=== PATIENT | male | born 1950 | race Caucasian/White ===

== ENCOUNTER → 2017-09-24 | Outpatient (CLI) | payer MEDICARE ==
--- NOTE | 2017-09-25 08:27 | CT ---
EXAMINATION TYPE: CT Chest Abd Pelvis w con DATE OF EXAM: 09/24/2017 COMPARISON: 06/13/2017 HISTORY: Follow-up small bowel cancer. Pelvic pain. CT DLP: 2673 mGy Automated exposure control for dose reduction was used. CONTRAST: CT scan of the chest, abdomen and pelvis is performed with Oral Contrast and with IV Contrast, patien t injected with 100 mL of Isovue M300. FINDINGS: LUNGS: There is subsegmental areas of consolidation bilaterally linear band of density left lower lob e. Findings are nonspecific. No pneumothorax or pleural effusion. Ill-defined vague nodularity right apex measuring 5 mm MEDIASTINUM: There are no greater than 1 cm hilar or mediastinal lymph nodes. No pericardial effusion is seen. Moderate to severe three-vessel coronary artery calcifications are present, a marker for co ronary artery disease. Moderate atheromatous changes are also seen of the thoracic aorta. Surgical cl ips from prior coronary artery bypass graft are noted. Median sternotomy wires are present. OTHER: Bilateral retroareolar mild breast tissue is most compatible with gynecomastia. LIVER/GB: Stable 8 mm hepatic dome lesion.. Numerous small gallstones versus biliary sludge are scatt ered within the gallbladder neck, body and fundus dependently. PANCREAS: No significant abnormality is seen. No ductal dilatation. SPLEEN: No significant abnormality is seen. No evidence of splenomegaly. ADRENALS: No significant abnormality is seen. Adrenal glands are symmetric and maintained adreniform shape. KIDNEYS: No evidence of hydronephrosis. The kidneys enhance symmetrically. BOWEL: No enlarged bowel. No evidence of obstruction. No focal bowel wall thickening is appreciated a lthough oral contrast is not present within the colon limiting evaluation. GENITAL ORGANS: No gross abnormality seen. LYMPH NODES: No greater than 1cm abdominal or pelvic lymph nodes are appreciated. Right lower quadran t adenopathy is discussed in the "other" section. OSSEOUS STRUCTURES: Postsurgical fusion is seen of L4-L5. Mild multilevel degenerative disc disease i s present on the visualized cervicothoracic and thoracolumbar as well as lumbosacral spine. Arthropat hy of the hips noted. Postsurgical change in the lower lumbar spine. OTHER: Soft tissue attenuated density with a spiculated morphology representing a desmoplastic reacti on measuring approximately 2.3 x 3.0 cm on the previous exam now measures 2.1 x 1.2 cm within the rig ht lower quadrant. No calcifications are seen. Additional smaller lymph nodes on image 85 are presen t locally. Retrospectively this was present on the prior exam of 2012 but was less conspicuous. This is now increase in size. IMPRESSION: 1. Spiculated right lower quadrant mesenteric mass is reduced in size now measuring 2.1 x 1.2 cm and previously measuring 2.3 x 3 cm. Tiny adjacent previously described shotty adenopathy is not seen wit h certainty and today's exam. 2. Subsegmental areas of consolidation within the lungs are nonspecific correlate for pneumonitis. Va damir area of nodularity involving the right upper lobe ill-defined and likely postinflammatory measuri ng 5 mm. 3. Hepatic lesion is stable back to 2012 and favored to represent hepatic cyst. 4. Cholelithiasis without CT evidence of acute cholecystitis.
== END | disposition home or self-care (01) ==
LOC: RADCTMAIN 14:18
PROVIDERS: ATTEND Internal Medicine Hematology & Oncology
DX: C7A.011 Malignant carcinoid tumor of the jejunum (principal); R19.07 Generalized intra-abdominal and pelvic swelling, mass and lump; R91.8 Other nonspecific abnormal finding of lung field; K76.9 Liver disease, unspecified; K80.20 Calculus of gallbladder without cholecystitis without obstruction; Z88.7 Allergy status to serum and vaccine
CPT/HCPCS: 82565; 84520; 71260; 74177; 36415; Q9967

== ENCOUNTER 2017-11-16 10:45 | Inpatient (IN) | payer MEDICARE, OTHER ==
[2017-11-12 15:16] VITALS: BMI 40.6
[~2017-11-16 10:45] MED LIST: ALPRAZolam 0.25 MG TAB PO PRN; ASPIRIN 325 MG TAB PO STA; ATORVASTATIN 80 MG TAB PO STA; NITROGLYCERIN SL TABS 0.4 MG TAB SUBLINGUAL PRN; SODIUM CHLORIDE 0.9% 1,000 ML in EMPTY BAG 1 BAG IV ONE
[2017-11-16] MEDS ORDERED: ASPIRIN 325 MG TAB PO ONE (11:39)
[2017-11-16 11:55] LABS: Glucose,Whole Blood 123 mg/dL (75-99)
[2017-11-16] MEDS ORDERED: fentaNYL (PF) 50 MCG/ML 2 ML AMP ONE (11:55)
[2017-11-16] MEDS ORDERED: MIDAZOLAM 2 MG/2 ML VIAL ONE (11:55)
[2017-11-16] MEDS ORDERED: MIDAZOLAM 2 MG/2 ML VIAL IVP ONE (12:02)
[2017-11-16] MEDS ORDERED: LIDOCAINE 2% INJ 20 MG/ML SQ ONE (12:08)
[2017-11-16] MEDS ORDERED: fentaNYL (PF) 50 MCG/ML 2 ML AMP IVP ONE (12:45)
[2017-11-16] MEDS ORDERED: IOPAMIDOL-370 125ML BTL INJ ONE (12:45)
[2017-11-16] MEDS ORDERED: RX INFO: IV CONTRAST WAS GIVEN 1 EACH MISC MISCELLANE PRN (13:03)
[2017-11-16] MEDS ORDERED: FUROSEMIDE 250 MG in SODIUM CHLORIDE 0.9% 225 ML IV ONE ×2 (13:07→15:00)
[2017-11-16] MEDS ORDERED: ALBUTEROL NEBULIZED 2.5 MG/3 ML INHALATION PRN (13:11)
[2017-11-16] MEDS ORDERED: ALBUTEROL INHALER 60 PUFF/8 GM INHALER INHALATION PRN (13:11)
[2017-11-16] MEDS ORDERED: RIVAROXABAN 20 MG TAB PO SCH ×2 (13:45→15:00)
[2017-11-16] MEDS ORDERED: SPIRONOLACTONE 25 MG TAB PO SCH (14:18)
--- NOTE | 2017-11-16 14:52 | CC ---
CARDIAC CATHETERIZATION REPORT NAME OF PROCEDURE: Right and left heart catheterization. Mr. Styles is a 67-year-old gentleman who is status post prior coronary artery bypass surgery. Patient was recently evaluated by Dr. Boss, has been having exertional shortness of breath with orthopnea and PND over the last 2-3 weeks which has progressively got worse. Patient also was having some chest discomfort. Patient has a history of persistent atrial fibrillation. He was maintaining a normal sinus rhythm with Tikosyn but now he has a breakthrough atrial fibrillation with Tikosyn. In view of that, the patient was recommended cardiac catheterization. To consider possible ablation in the future. PROCEDURE: The right groin was prepped and draped in the usual manner and the right femoral artery was entered using Seldinger technique. A #6-Jordanian sheath was placed in. Initially, the left heart catheterization was performed. Subsequently, right femoral vein was entered using Seldinger technique and a #8-Jordanian sheath was placed in and right heart catheterization was performed. Subsequently. the arterial sheath was removed and patient was admitted to the intensive care unit for intensive diuretic management. HEMODYNAMICS: Left ventricular end-diastolic pressure is 24-28 mmHg prior to angiography. The right heart, right-sided hemodynamics, right atrial pressure is 20 to 24 mmHg. Right ventricular systolic pressure is 60 and diastolic pressure is 24 mmHg. Pulmonary artery systolic pressure is 60 and end-diastolic pressure is about 30 mmHg. Pulmonary capillary wedge pressure is 20-30 mmHg. Cardiac output was 4 L and cardiac index is about to 1.2-1.3 L/m2 SELECTIVE CORONARY ANGIOGRAPHY: Left main coronary artery shows a distal stenosis of 70%. LAD is a good caliber blood vessel. There is a competitive flow noted in the distal LAD. Circumflex coronary artery is totally occluded after the origin of the small size obtuse marginal branch. Right coronary artery was totally occluded before. SANDERS graft to the LAD is patent with good filling of the distal LAD is noted. Saphenous vein graft to the good size obtuse marginal branch was patent with retrograde filling of the obtuse marginal branch noted. FINAL IMPRESSION: This study shows a patent SANDERS graft to the LAD and saphenous vein graft to the obtuse marginal branch. Patient has evidence of significant pulmonary hypertension and elevated pulmonary capillary wedge pressure and left ventricular end-diastolic pressure. We will admit the patient and monitor the PA pressures and start the patient on Lasix drip. A pulmonary consultation will be obtained and further adjustment in the medications will be made as necessary. MMODL / IJN: [id number] /
[2017-11-16] MEDS: SPIRONOLACTONE 25 MG TAB PO SCH ×2 (15:04→21:45)
[2017-11-16] MEDS: SODIUM CHLORIDE 0.9% 1,000 ML IV SCH (15:06)
[2017-11-16 15:07] LABS: Glucose,Whole Blood 139 mg/dL (75-99)
[2017-11-16 15:42] LABS: Anion Gap 9 mmol/L; Blood Urea Nitrogen 20 mg/dL (9-20); Calcium 8.6 mg/dL (8.4-10.2); Carbon Dioxide 36 mmol/L (22-30); Chloride 97 mmol/L (98-107); Glucose 137 mg/dL (74-99); Potassium 4.5 mmol/L (3.5-5.1); Sodium 142 mmol/L (137-145)
[2017-11-16 17:15] LABS: Glucose,Whole Blood 144 mg/dL (75-99)
[2017-11-16] MEDS ORDERED: IPRATROPIUM-ALBUTEROL 3 ML NEB INHALATION PRN (18:40)
[2017-11-16] MEDS: DOFETILIDE 500 MCG CAP PO SCH (19:01)
[2017-11-16] MEDS: methylPREDNISolone SOD SUCCI 125 MG/2 ML VIAL IV SCH ×2 (19:02→23:34)
--- NOTE | 2017-11-16 19:03 | XR ---
EXAMINATION TYPE: XR chest 1V portable DATE OF EXAM: 11/16/2017 Comparison: 05/30/2017 Clinical History: 67-year-old male sob Findings: Median sternotomy wires are present post CABG clips in the mediastinum. Heart is mild to moderately e nlarged. Diffuse interstitial densities. Hazy densities at the lung bases, possible trace left effusi on. Impression: Mild/moderate cardiomegaly with interstitial changes and possible trace left effusion. Correlate for mild CHF with pulmonary vascular congestion.
[2017-11-16 19:04] LABS: ABG Base Excess 9.5 mmol/L; ABG HCO3 35 mmol/L (21-25); ABG Oxygen Saturation 94.5 % (94-97); ABG PCO2 65 mmHg (35-45); ABG PH 7.35 (7.35-7.45); ABG PO2 82 mmHg (83-108); ABG TCO2 37 mmol/L (19-24)
[2017-11-16] MEDS: IPRATROPIUM-ALBUTEROL 3 ML NEB INHALATION SCH (19:49)
[2017-11-16] MEDS: SYMBICORT 160-4.5 MCG INHALER INHALATION SCH (19:49)
[2017-11-16 21:34] LABS: Glucose,Whole Blood 198 mg/dL (75-99)
[2017-11-16] MEDS: PREGABALIN 100 MG CAP PO SCH (21:44)
[2017-11-16] MEDS: INSULIN ASPART 100 UNIT/ML 1 ML 10 ML VIAL SQ SCH (21:44)
[2017-11-16] MEDS: HYDROcodone/APAP 5-325MG 1 EACH TAB PO PRN (23:33)
[2017-11-17 01:03] LABS: Hemoglobin A1C 7.3 % (4.0-6.0)
[2017-11-17 02:20] LABS: Glucose,Whole Blood 198 mg/dL (75-99)
[2017-11-17] MEDS: HYDROcodone/APAP 5-325MG 1 EACH TAB PO PRN ×4 (04:46→22:03)
[2017-11-17] MEDS: SODIUM CHLORIDE 0.9% 1,000 ML IV SCH ×2 (04:46→15:36)
[2017-11-17 05:14] LABS: Anisocytosis Slight; Basophils % (A) 0 %; Eosinophils % (A) 0 %; HCT 47.1 % (39.0-53.0); HGB 14.4 gm/dL (13.0-17.5); Hypochromasia Moderate; Lymphocytes # (A) 0.6 k/uL (1.0-4.8); Lymphocytes % (A) 7 %; MCHC 30.5 g/dL (31.0-37.0); MCV 91.9 fL (80.0-100.0); Monocytes # (A) 0.2 k/uL (0-1.0); Monocytes % (A) 2 %; Neutrophils # (A) 7.9 k/uL (1.3-7.7); Neutrophils % (A) 90 %; Platelet Count 225 k/uL (150-450); RBC 5.13 m/uL (4.30-5.90); RDW 17.2 % (11.5-15.5); WBC 8.7 k/uL (3.8-10.6)
[2017-11-17] MEDS: DOFETILIDE 500 MCG CAP PO SCH ×2 (05:23→17:58)
[2017-11-17] MEDS: methylPREDNISolone SOD SUCCI 125 MG/2 ML VIAL IV SCH ×4 (05:23→23:08)
[2017-11-17 05:25] LABS: Albumin 4.1 g/dL (3.5-5.0); Anion Gap 12 mmol/L; Calcium 8.8 mg/dL (8.4-10.2); Carbon Dioxide 33 mmol/L (22-30); Chloride 94 mmol/L (98-107); Glucose 206 mg/dL (74-99); Sodium 139 mmol/L (137-145); Total Bilirubin 0.6 mg/dL (0.2-1.3); Total Protein 6.7 g/dL (6.3-8.2)
[2017-11-17 05:38] LABS: ALT 26 U/L (21-72); AST 24 U/L (17-59); Alkaline Phosphatase 67 U/L (38-126); Blood Urea Nitrogen 18 mg/dL (9-20); Potassium 5.1 mmol/L (3.5-5.1)
[2017-11-17 07:16] LABS: Glucose,Whole Blood 269 mg/dL (75-99)
[2017-11-17] MEDS: IPRATROPIUM-ALBUTEROL 3 ML NEB INHALATION SCH ×4 (08:02→21:10)
[2017-11-17] MEDS: SYMBICORT 160-4.5 MCG INHALER INHALATION SCH ×2 (08:03→21:09)
--- NOTE | 2017-11-17 08:09 | XR ---
EXAMINATION TYPE: XR chest 1V DATE OF EXAM: 11/17/2017 COMPARISON: Prior chest 11/16/2017 HISTORY: Congestive heart failure TECHNIQUE: Single frontal view of the chest is obtained. FINDINGS: Patient is post median sternotomy. Cardiac mediastinal silhouette is stable. No evident pn eumothorax or pleural effusion. There are overlying cardiac leads. Pulmonary vascularity and nicole are unchanged. Patchy basilar density persists. IMPRESSION: Probable basilar atelectasis. Stable cardiomegaly. Follow-up as indicated.
[2017-11-17] MEDS: INSULIN ASPART 100 UNIT/ML 1 ML 10 ML VIAL SQ SCH ×2 (08:34→12:53)
[2017-11-17] MEDS: PANTOPRAZOLE 40 MG TABLET PO SCH (08:37)
[2017-11-17] MEDS: SPIRONOLACTONE 25 MG TAB PO SCH ×2 (08:38→20:47)
[2017-11-17] MEDS: PREGABALIN 100 MG CAP PO SCH ×2 (08:42→20:47)
[2017-11-17] MEDS ORDERED: METOPROLOL SUCCINATE (ER) 100 MG TAB.ER.24H PO SCH (09:00)
[2017-11-17] MEDS ORDERED: LOSARTAN 50 MG TAB PO SCH (09:00)
[2017-11-17] MEDS ORDERED: NITROGLYCERIN OINT 1 INCH/GM PACKET TOPICAL SCH (09:30)
[2017-11-17] MEDS ORDERED: METOLAZONE 2.5 MG TAB PO SCH (09:30)
[2017-11-17] MEDS: METOPROLOL SUCCINATE (ER) 50 MG TAB.ER.24H PO SCH (09:42)
[2017-11-17] MEDS ORDERED: NITROGLYCERIN-D5W PMX 50 MG in DEXTROSE/WATER 1 250ML.BAG IV SCH (09:45)
[2017-11-17] MEDS: SENNOSIDES-DOCUSATE SODIUM 1 EACH TAB PO PRN (10:40)
[2017-11-17] MEDS: ALPRAZolam 0.5 MG TAB PO PRN ×2 (10:40→23:12)
[2017-11-17] MEDS: NON-FORMULARY DRUG (Canagliflozin [Invokana] 100 MG) PO SCH (11:43)
[2017-11-17] MEDS ORDERED: FERROUS SULFATE 325 MG TAB PO SCH (12:00)
--- NOTE | 2017-11-17 12:12 | P.CNPUL ---
History of Present Illness Consult date: 11/17/17 Reason for consult: dyspnea, COPD, pulmonary hypertension Chief complaint: Shortness of breath History of present illness: This is a 67-year-old white male with history of COPD, FEV1 is in the range of 40%, patient usually follows up with Dr. Velazquez on a regular basis. Patient is also status post previous coronary artery bypass surgery, he has been complaining of worsening dyspnea on exertion and orthopnea for the last 3 weeks. Shortness of breath has been getting progressively worse. Patient is also known to have history of atrial fibrillation. Controlled with Tikosyn. Patient had breakthrough atrial fibrillation, recently seen by cardiology, and a cardiac catheterization was recommended for further evaluation and for possibly considering ablation in the future. Yesterday, the patient underwent left and right heart catheterization, he was found to have patent SANDERS to LAD, and patent saphenous vein graft to the obtuse marginal branch. Patient was also noted to have significant pulmonary hypertension and pulmonary capillary wedge pressures were high with elevated left ventricular end-diastolic pressure. Chest x-ray showed minimal interstitial edema, patient had a pulmonary artery catheter placed by the customer trainer, placed on Lasix drip at 5 mg per hour, transferred to the ICU for further optimization of his interstitial edema. Patient has been responding quite well to diuretics, however his pulmonary pressures remained basically the same. Clinically the patient is basically the same in spite of significant diuresis over the last 12 hours. All his meds were reviewed, and I believe he is going to be started on nitroglycerin drip as per cardiology. CBC is relatively normal. Basic metabolic profile is relatively normal, his bicarb is elevated as expected at 33 , renal profile is normal. Blood sugar is 269. During my evaluation in the ICU , patient had no headache, no blurred vision, no dizziness, no chest pain, he does have history of chronic shortness of breath, no palpitations, no nausea no vomiting no abdominal pain and melena no hematemesis no dysuria and no frequency no urgency. Review of Systems 14 point review of systems were obtained, please refer to pertinent positives as noted in HPI otherwise remaining systems are negative. Past Medical History Past Medical History: Atrial Flutter, Coronary Artery Disease (CAD), Cancer, COPD, Diabetes Mellitus, Hyperlipidemia, Hypertension, Sleep Apnea/CPAP/BIPAP Additional Past Medical History / Comment(s): unable to tolerate cpap at home so he uses 02-2 liters nc,constipation lbm 2 days ago, rls, neuropathy, exposure to agent orange, "mi x7 first one at age 34(1983) and last one 1997", cataracts-had sx. 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 History of Any Multi-Drug Resistant Organisms: None Reported Past Surgical History: Back Surgery, Bowel Resection, Cardiac Ablation, Coronary Bypass/CABG, Heart Catheterization, Heart Catheterization With Stent, Orthopedic Surgery Additional Past Surgical History / Comment(s): FAVIAN 12/31/13, PARTIAL LEFT KNEE arthroplasty, RT LEG ARTERY surgery(possible fem pop bypass by description), CABG X3 vessels 2007, several heart caths and total of 7 stents last one 1996 , colonoscopy,cataracts , 06/18/17 took 14 inches of small bowel out r/t cancer, Past Anesthesia/Blood Transfusion Reactions: No Reported Reaction Date of Last Stent Placement:: 1997 Past Psychological History: Anxiety, Depression Additional Psychological History / Comment(s): "i get depressed easily", at this time no thoughts of wanting to harm self. has difficulty sleeping-gets maybe 3 hours per night. disabled vet,served in the [employer]. pt lives with his in single level home w/4 [employer]. no home care services. has home 02 2 liters n/c,glucometer. Smoking Status: Former smoker Past Alcohol Use History: None Reported Additional Past Alcohol Use History / Comment(s): STATES RECOVERING ALCHOHOLIC. QUIT SMOKING 2006 Past Drug Use History: None Reported Additional Drug Use History / Comment(s): remote history of trial of recreational drugs in 1969, none since - Past Family History Father Family Medical History: Chest Pain / Angina, Coronary Artery Disease (CAD), Myocardial Infarction ([place]) Brother(s) Family Medical History: Chest Pain / Angina, Coronary Artery Disease (CAD), Myocardial Infarction ([place]) Son(s) Family Medical History: Musculoskeletal Disorder Mother Family Medical History: Unable to Obtain Additional Family Medical History / Comment(s): of brain aneurysm at age 34 Medications and Allergies Home Medications Medication Instructions Recorded Confirmed Type Budesonide-Formot 160-4.5 Mcg 2 puff INHALATION RT-BID 12/26/13 11/16/17 History [Symbicort 160-4.5 Mcg Inhaler] Rivaroxaban [Xarelto] 20 mg PO DAILY #0 06/08/15 11/16/17 Rx Albuterol Inhaler [Ventolin Hfa 2 puff INHALATION RT-DAILY PRN 11/11/15 History Inhaler] Nitroglycerin Sl Tabs [Nitrostat] 0.4 mg SUBLINGUAL Q5M PRN 11/11/15 11/16/17 History Bumetanide [BUMEX] 1 mg PO DAILY@1530 11/21/15 11/16/17 History Metoprolol Succinate (ER) [Toprol 50 mg PO DAILY 11/21/15 11/16/17 History XL] Albuterol Nebulized [Ventolin 2.5 mg INHALATION RT-DAILY PRN #0 11/25/15 Rx Nebulized] nebu Dofetilide 500 mcg PO BID 06/08/17 11/16/17 History Losartan Potassium [Cozaar] 100 mg PO DAILY 06/08/17 11/16/17 History Pregabalin [Lyrica] 300 mg PO BID 06/08/17 11/16/17 History metFORMIN HCL 1,000 mg PO BID 06/08/17 11/16/17 History Canagliflozin [Invokana] 100 mg PO DAILY 06/09/17 11/16/17 History Pantoprazole [Protonix] 40 mg PO DAILY #30 tablet.dr 06/23/17 11/16/17 Rx Ferrous Sulfate [Feosol] 325 mg PO SA 11/12/17 11/16/17 History rOPINIRole HCL [Requip] 1.5 mg PO HS 11/12/17 11/16/17 History HYDROcodone/APAP 5-325MG [Edgar 1 tab PO Q4HR PRN 11/16/17 11/16/17 History 5-325] Allergies Allergy/AdvReac Type Severity Reaction Status Date / Time No Known Allergies Allergy Verified 11/16/17 14:01 Physical Exam Vitals: Vital Signs Temp Pulse Resp BP BP Pulse Ox 11/17/17 11:40 75 11/17/17 11:26 72 11/17/17 11:00 75 16 141/58 91 L 11/17/17 10:00 86 20 145/69 92 L 11/17/17 09:00 81 27 H 136/67 92 L 05/19/18 08:30 76 21 136/67 91 L 05/19/18 08:16 76 05/19/18 08:03 69 05/19/18 08:00 97.3 F L 73 20 130/55 92 L 05/19/18 07:00 73 18 135/53 92 L 05/19/18 06:00 82 21 126/67 92 L 05/19/18 05:00 74 28 H 123/70 92 L 05/19/18 04:00 98.0 F 67 22 145/70 94 L 05/19/18 03:00 65 22 148/77 93 L 05/19/18 02:00 84 24 124/53 91 L 05/19/18 01:00 73 16 131/63 92 L 05/19/18 00:00 98.2 F 84 22 150/60 94 L 05/18/18 23:05 78 18 150/60 95 05/18/18 23:00 68 20 136/76 91 L 05/18/18 22:00 68 121/52 92 L 05/18/18 21:00 86 16 152/58 92 L 05/18/18 20:00 98.0 F 87 26 H 115/50 96 05/18/18 19:50 68 18 96 05/18/18 19:00 64 18 140/57 95 05/18/18 18:45 66 21 124/55 95 05/18/18 18:30 68 21 140/67 94 L 05/18/18 18:15 71 18 134/69 94 L 05/18/18 18:00 65 24 127/72 95 05/18/18 17:45 69 17 144/64 95 05/18/18 17:30 89 37 H 124/68 96 05/18/18 17:15 73 27 H 124/68 96 05/18/18 16:48 18 116/58 05/18/18 16:22 18 105/59 Intake and Output 05/18/18 05/19/18 05/19/18 22:59 06:59 14:59 Intake Total 612 882 437.55 Output Total 1550 1300 975 Balance -938 -418 -537.45 Intake: IV 412 682 430 Furosemide 250 mg In 25 35 25 Sodium Chloride 0.9% 225 ml @ 5 MG/HR 5 mls/hr IV .Q24H [facility] Rx#:[id number] Sodium Chloride 0.9% 1, 375 600 375 000 ml @ 75 mls/hr IV . [id number] [facility] Rx#:[id number] pressure bag 12 47 30 Intake, IV Titration 7.55 Amount Nitroglycerin-D5w Pmx 50 7.55 mg In Dextrose/Water 1 250ml.bag @ Titrate IV . Q0M [facility] Rx#:[id number] Oral 200 200 Output: Urine 1550 1300 975 Other: Voiding Method Indwelling Catheter Indwelling Catheter Indwelling Catheter Weight 141.3 kg 141.3 kg ABP, PAP, CO, CI - Last 8 Hours Pulmonary Artery Pressure 47/24 Pulmonary Artery Pressure 59/29 Pulmonary Artery Pressure 60/28 Pulmonary Artery Pressure 49/24 Pulmonary Artery Pressure 54/28 Pulmonary Artery Pressure 54/28 Pulmonary Artery Pressure 55/30 Pulmonary Artery Pressure 57/26 Pulmonary Artery Pressure 46/19 Cardiac Output 8.6 Cardiac Output 8.6 Cardiac Output 8.6 Cardiac Output 6.8 Cardiac Output 6.8 Cardiac Output 6.8 Cardiac Output 6.8 Cardiac Index 3.3 Physical Exam: Revealed a 67-year-old white male in no distress, on nasal cannula, and has a Shevlin-Brendon catheter from the right groin. Head: Atraumatic, normocephalic. HEENT:[Neck is supple.] [No neck masses.] [No thyromegaly.] [No JVD.] Chest: [Mechanical chest expansion bilaterally, diminished breath sounds at the bases, no crackles, no rhonchi, no wheezes..] Cardiac Exam: [Normal S1 and S2, no S3 gallop, no murmur.] Abdomen: [Obese, Soft, nontender, no megaly, no rebound, no guarding, normal bowel sounds.] Extremities: [No clubbing, no edema, no cyanosis.] Right groin was examined, and there is a Shevlin-Brendon catheter has catheter placed through the right groin. Neurological Exam: [No focal neurologic deficit.] Psychiatric: Normal mood, normal affect. Lymphatics: No lymphadenopathy. Results - Laboratory Findings CBC and BMP: 11/17/17 04:47 11/17/17 04:21 ABG ABG pH 7.35 (7.35-7.45) 11/16/17 18:59 ABG pCO2 65 mmHg (35-45) H 11/16/17 18:59 ABG pO2 82 mmHg (83-108) L 11/16/17 18:59 ABG O2 Saturation 94.5 % (94-97) 11/16/17 18:59 Abnormal lab findings: Abnormal Labs 11/16/17 11/16/17 11/16/17 11:40 15:02 15:18 MCHC RDW Neutrophils # Lymphocytes # ABG pCO2 ABG pO2 ABG HCO3 ABG Total CO2 Chloride 97 L Carbon Dioxide 36 H Glucose 137 H POC Glucose (mg/dL) 123 H 139 H 11/16/17 11/16/17 11/16/17 17:13 18:59 21:33 MCHC RDW Neutrophils # Lymphocytes # ABG pCO2 65 H ABG pO2 82 L ABG HCO3 35 H ABG Total CO2 37 H Chloride Carbon Dioxide Glucose POC Glucose (mg/dL) 144 H 198 H 11/17/17 11/17/17 11/17/17 02:18 04:21 04:47 MCHC 30.5 L RDW 17.2 H Neutrophils # 7.9 H Lymphocytes # 0.6 L ABG pCO2 ABG pO2 ABG HCO3 ABG Total CO2 Chloride 94 L Carbon Dioxide 33 H Glucose 206 H POC Glucose (mg/dL) 198 H 11/17/17 07:14 MCHC RDW Neutrophils # Lymphocytes # ABG pCO2 ABG pO2 ABG HCO3 ABG Total CO2 Chloride Carbon Dioxide Glucose POC Glucose (mg/dL) 269 H - Diagnostic Findings Chest x-ray: image reviewed (Chest x-ray this morning is basically unremarkable , admission chest x-ray showed minimal interstitial edema.) Assessment and Plan Assessment: Impression: 1 chronic shortness of breath, multifactorial, secondary to severe COPD, secondary pulmonary hypertension, and diastolic congestive heart failure. And secondary to obesity/deconditioning. 2 secondary pulmonary hypertension secondary to COPD, obstructive sleep apnea syndrome. 3 paroxysmal atrial fibrillation, presently under control. 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 5 coronary artery disease, previous CABG. 6 type 2 diabetes with diabetic peripheral neuropathy 7 hypertension 8 restless leg syndrome 9 severe COPD, FEV1 is in the range of 41%. Recommendation: Continue present treatment plan, at this point I see no value for his pulmonary artery catheter, hence I recommended that it could be discontinued. Cardiology prefers to keep her in for now, clinically the patient is responding to treatment, we can easily manage his cardiopulmonary status without the use of pulmonary artery catheter. Patient had extensive workup in the past for his pulmonary hypertension at [facility]. Continue bronchodilators, will continue to follow. Time with Patient: Greater than 30
[2017-11-17 12:34] LABS: Glucose,Whole Blood 310 mg/dL (75-99)
[2017-11-17] MEDS: metFORMIN 500 MG TAB PO SCH (13:30)
--- NOTE | 2017-11-17 13:34 | P.HPIM ---
History of Present Illness H&P Date: 11/17/17 Chief Complaint: Dyspnea This is 67 years old male with frequent hospitalization presents to the cardiac catheterization lab for elective cardiac catheterization and was found to have elevated pulmonary artery pressure with elevated wedge pressure and was admitted to the intensive care unit based on adjunct latin professor recommendation to start Lasix drip at 5 mg per hour and nitroglycerin drip was started later on. Patient stated that he is been declining steadily over the last month to the point where he was not able to finish his statement winded running a composition believes that he gained at least 30 pounds in all related to fluid at the time he continue to take his Lasix twice daily with no results as it used to be. Patient eats a regular diet and to watch his salt intake. Patient is diabetic and takes metformin and invokana. Patient is noncompliant with his diet and have morbid obesity. Patient currently reported improvement in his shortness breath and thinks that he lost significant amount of weight. Patient is denying chest pain, nausea, vomiting, dumping, dizziness, lightheadedness or dysuria Review of Systems All 14 systems reviewed and negative ceftaz above Past Medical History Past Medical History: Atrial Flutter, Coronary Artery Disease (CAD), Cancer, COPD, Diabetes Mellitus, Hyperlipidemia, Hypertension, Sleep Apnea/CPAP/BIPAP Additional Past Medical History / Comment(s): unable to tolerate cpap at home so he uses 02-2 liters nc,constipation lbm 2 days ago, rls, neuropathy, exposure to agent orange, "mi x7 first one at age 34(1983) and last one 1997", cataracts-had sx. 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 History of Any Multi-Drug Resistant Organisms: None Reported Past Surgical History: Back Surgery, Bowel Resection, Cardiac Ablation, Coronary Bypass/CABG, Heart Catheterization, Heart Catheterization With Stent, Orthopedic Surgery Additional Past Surgical History / Comment(s): FAVIAN 12/31/13, PARTIAL LEFT KNEE arthroplasty, RT LEG ARTERY surgery(possible fem pop bypass by description), CABG X3 vessels 2007, several heart caths and total of 7 stents last one 1996 , colonoscopy,cataracts , 06/18/17 took 14 inches of small bowel out r/t cancer, Past Anesthesia/Blood Transfusion Reactions: No Reported Reaction Date of Last Stent Placement:: 1997 Past Psychological History: Anxiety, Depression Additional Psychological History / Comment(s): "i get depressed easily", at this time no thoughts of wanting to harm self. has difficulty sleeping-gets maybe 3 hours per night. disabled vet,served in the army. pt lives with his in single level home w/4 porch steps. no home care services. has home 02 2 liters n/c,glucometer. Smoking Status: Former smoker Past Alcohol Use History: None Reported Additional Past Alcohol Use History / Comment(s): STATES RECOVERING ALCHOHOLIC. QUIT SMOKING 2006 Past Drug Use History: None Reported Additional Drug Use History / Comment(s): remote history of trial of recreational drugs in 1969, none since - Past Family History Father Family Medical History: Chest Pain / Angina, Coronary Artery Disease (CAD), Myocardial Infarction (DC) Brother(s) Family Medical History: Chest Pain / Angina, Coronary Artery Disease (CAD), Myocardial Infarction (DC) Son(s) Family Medical History: Musculoskeletal Disorder Mother Family Medical History: Unable to Obtain Additional Family Medical History / Comment(s): of brain aneurysm at age 34 Medications and Allergies Home Medications Medication Instructions Recorded Confirmed Type Budesonide-Formot 160-4.5 Mcg 2 puff INHALATION RT-BID 12/26/13 11/16/17 History [Symbicort 160-4.5 Mcg Inhaler] Rivaroxaban [Xarelto] 20 mg PO DAILY #0 06/08/15 11/16/17 Rx Albuterol Inhaler [Ventolin Hfa 2 puff INHALATION RT-DAILY PRN 11/11/15 History Inhaler] Nitroglycerin Sl Tabs [Nitrostat] 0.4 mg SUBLINGUAL Q5M PRN 11/11/15 11/16/17 History Bumetanide [BUMEX] 1 mg PO DAILY@1530 11/21/15 11/16/17 History Metoprolol Succinate (ER) [Toprol 50 mg PO DAILY 11/21/15 11/16/17 History XL] Albuterol Nebulized [Ventolin 2.5 mg INHALATION RT-DAILY PRN #0 11/25/15 Rx Nebulized] nebu Dofetilide 500 mcg PO BID 06/08/17 11/16/17 History Losartan Potassium [Cozaar] 100 mg PO DAILY 06/08/17 11/16/17 History Pregabalin [Lyrica] 300 mg PO BID 06/08/17 11/16/17 History metFORMIN HCL 1,000 mg PO BID 06/08/17 11/16/17 History Canagliflozin [Invokana] 100 mg PO DAILY 06/09/17 11/16/17 History Pantoprazole [Protonix] 40 mg PO DAILY #30 tablet. 06/23/17 11/16/17 Rx Ferrous Sulfate [Feosol] 325 mg PO SA 11/12/17 11/16/17 History rOPINIRole HCL [Requip] 1.5 mg PO HS 11/12/17 11/16/17 History HYDROcodone/APAP 5-325MG [[place] 1 tab PO Q4HR PRN 11/16/17 11/16/17 History 5-325] Allergies Allergy/AdvReac Type Severity Reaction Status Date / Time No Known Allergies Allergy Verified 11/16/17 14:01 Physical Exam Vitals: Vital Signs Temp Pulse Resp BP BP Pulse Ox 11/17/17 13:00 79 26 H 122/54 91 L 11/17/17 12:00 98.2 F 69 26 H 123/58 90 L 11/17/17 11:40 75 11/17/17 11:26 72 11/17/17 11:00 75 16 141/58 91 L 11/17/17 10:00 86 20 145/69 92 L 11/17/17 09:00 81 27 H 136/67 92 L 11/17/17 08:30 76 21 136/67 91 L 11/17/17 08:16 76 11/17/17 08:03 69 11/17/17 08:00 97.3 F L 73 20 130/55 92 L 11/17/17 07:00 73 18 135/53 92 L 11/17/17 06:00 82 21 126/67 92 L 11/17/17 05:00 74 28 H 123/70 92 L 11/17/17 04:00 98.0 F 67 22 145/70 94 L 11/17/17 03:00 65 22 148/77 93 L 11/17/17 02:00 84 24 124/53 91 L 11/17/17 01:00 73 16 131/63 92 L 11/17/17 00:00 98.2 F 84 22 150/60 94 L 11/16/17 23:05 78 18 150/60 95 11/16/17 23:00 68 20 136/76 91 L 11/16/17 22:00 68 121/52 92 L 11/16/17 21:00 86 16 152/58 92 L 11/16/17 20:00 98.0 F 87 26 H 115/50 96 11/16/17 19:50 68 18 96 11/16/17 19:00 64 18 140/57 95 11/16/17 18:45 66 21 124/55 95 11/16/17 18:30 68 21 140/67 94 L 11/16/17 18:15 71 18 134/69 94 L 11/16/17 18:00 65 24 127/72 95 11/16/17 17:45 69 17 144/64 95 11/16/17 17:30 89 37 H 124/68 96 11/16/17 17:15 73 27 H 124/68 96 11/16/17 16:48 18 116/58 11/16/17 16:22 18 105/59 Intake and Output 11/16/17 11/17/17 11/17/17 22:59 06:59 14:59 Intake Total 612 882 625.625 Output Total 1550 1300 1350 Balance -938 -418 -724.375 Intake: IV 412 682 602 Furosemide 250 mg In 25 35 35 Sodium Chloride 0.9% 225 ml @ 5 MG/HR 5 mls/hr IV .Q24H [facility] Rx#:[id number] Sodium Chloride 0.9% 1, 375 600 525 000 ml @ 75 mls/hr IV . [id number] [facility] Rx#:[id number] pressure bag 12 47 42 Intake, IV Titration 23.625 Amount Nitroglycerin-D5w Pmx 50 23.625 mg In Dextrose/Water 1 250ml.bag @ Titrate IV . Q0M [facility] Rx#:[id number] Oral 200 200 Output: Urine 1550 1300 1350 Other: Voiding Method Indwelling Catheter Indwelling Catheter Indwelling Catheter Weight 141.3 kg 141.3 kg ABP, PAP, CO, CI - Last 8 Hours Pulmonary Artery Pressure 57/27 Pulmonary Artery Pressure 45/20 Pulmonary Artery Pressure 47/24 Pulmonary Artery Pressure 59/29 Pulmonary Artery Pressure 60/28 Pulmonary Artery Pressure 49/24 Pulmonary Artery Pressure 54/28 Pulmonary Artery Pressure 54/28 Pulmonary Artery Pressure 55/30 Cardiac Output 6.5 Cardiac Output 8.6 Cardiac Output 8.6 Cardiac Output 8.6 Cardiac Output 8.6 Cardiac Output 6.8 Cardiac Output 6.8 Cardiac Output 6.8 Cardiac Index 6.5 Cardiac Index 3.3 Gen.: in stated age, no acute distress, morbidly obese Heart: Normal S1-S2 Lungs: Clear to auscultation bilaterally Abdomen: Soft, no tenderness, positive bowel sounds in all 4 quadrant no guarding or rebound Skin: No new rash Psych: Alert and oriented 3 Neuro: No focal deficit Right groin positive for catheter in place seems to be intact bilateral lower extremity edema noted with positive pulses bilaterally Results CBC & Chem 7: 11/17/17 04:47 11/17/17 04:21 Labs: Abnormal Lab Results - Last 24 Hours (Table) 11/16/17 11/16/17 11/16/17 Range/Units 15:02 15:18 17:13 MCHC (31.0-37.0) g/dL RDW (11.5-15.5) % Neutrophils # (1.3-7.7) k/uL Lymphocytes # (1.0-4.8) k/uL ABG pCO2 (35-45) mmHg ABG pO2 (83-108) mmHg ABG HCO3 (21-25) mmol/L ABG Total CO2 (19-24) mmol/L Chloride 97 L (98-107) mmol/L Carbon Dioxide 36 H (22-30) mmol/L Glucose 137 H (74-99) mg/dL POC Glucose (mg/dL) 139 H 144 H (75-99) mg/dL 11/16/17 11/16/17 11/17/17 Range/Units 18:59 21:33 02:18 MCHC (31.0-37.0) g/dL RDW (11.5-15.5) % Neutrophils # (1.3-7.7) k/uL Lymphocytes # (1.0-4.8) k/uL ABG pCO2 65 H (35-45) mmHg ABG pO2 82 L (83-108) mmHg ABG HCO3 35 H (21-25) mmol/L ABG Total CO2 37 H (19-24) mmol/L Chloride (98-107) mmol/L Carbon Dioxide (22-30) mmol/L Glucose (74-99) mg/dL POC Glucose (mg/dL) 198 H 198 H (75-99) mg/dL 11/17/17 11/17/17 11/17/17 Range/Units 04:21 04:47 07:14 MCHC 30.5 L (31.0-37.0) g/dL RDW 17.2 H (11.5-15.5) % Neutrophils # 7.9 H (1.3-7.7) k/uL Lymphocytes # 0.6 L (1.0-4.8) k/uL ABG pCO2 (35-45) mmHg ABG pO2 (83-108) mmHg ABG HCO3 (21-25) mmol/L ABG Total CO2 (19-24) mmol/L Chloride 94 L (98-107) mmol/L Carbon Dioxide 33 H (22-30) mmol/L Glucose 206 H (74-99) mg/dL POC Glucose (mg/dL) 269 H (75-99) mg/dL 11/17/17 Range/Units 12:32 MCHC (31.0-37.0) g/dL RDW (11.5-15.5) % Neutrophils # (1.3-7.7) k/uL Lymphocytes # (1.0-4.8) k/uL ABG pCO2 (35-45) mmHg ABG pO2 (83-108) mmHg ABG HCO3 (21-25) mmol/L ABG Total CO2 (19-24) mmol/L Chloride (98-107) mmol/L Carbon Dioxide (22-30) mmol/L Glucose (74-99) mg/dL POC Glucose (mg/dL) 310 H (75-99) mg/dL Thrombosis Risk Factor Assmnt - Choose All That Apply Any of the Below Risk Factors Present?: Yes Each Factor Represents 1 point: Abnormal pulmonary function (COPD), Heart failure (<1month) Other Risk Factors: Yes Each Risk Factor Represents 2 Points: Age 61-74 years Thrombosis Risk Factor Assessment Total Risk Factor Score: 4 Thrombosis Risk Factor Assessment Level: Moderate Risk Assessment and Plan Assessment: 1. Acute on chronic respiratory failure with hypoxia. 2. Dyspnea multifactorial in nature. 3. Acute diastolic heart failure exacerbation with right-sided heart failure, pulmonary hypertension. 4. Morbid obesity with obstructive sleep apnea. 5. Diabetes mellitus. 6. Hypertension. 7. Hyperlipidemia. 8. None compliance with diet and recommendation. We will continue Lasix drip and recommended to switch to oral agents as soon as possible wean off nitro drip and remove catheter per cardiology recommendation. Patient heart rate is controlled and I would like to continue anticoagulation per cardiology recommendation. We'll consider discharging patient's upon improvement monitor his weight closely repeat blood work in the morning and consult patient regarding medication adherence and close follow-up with his primary care physician. I would like to resume his home medication including metformin and and invokana. Plan discussed with the nursing staff at the bedside 2
[2017-11-17] MEDS ORDERED: HEPARIN SODIUM,PORCINE 5,000 UNIT/ML 1 ML VIAL IV PRN (14:36)
[2017-11-17] MEDS ORDERED: HEPARIN SODIUM,PORCINE 5,000 UNIT/ML 1 ML VIAL IV ONE (14:45)
[2017-11-17] MEDS ORDERED: HEPARIN SODIUM,PORCINE/D5W PMX 25,000 UNIT in DEXTROSE/WATER 1 500ML.BAG IV SCH (15:00)
[2017-11-17 15:12] LABS: Anisocytosis Slight; Basophils % (A) 0 %; Eosinophils # (A) 0.1 k/uL (0-0.7); Eosinophils % (A) 1 %; Hypochromasia Moderate; Lymphocytes # (A) 0.5 k/uL (1.0-4.8); Lymphocytes % (A) 4 %; MCH 28.1 pg (25.0-35.0); MCV 90.4 fL (80.0-100.0); Mean Platelet Volume 7.8; Monocytes # (A) 0.3 k/uL (0-1.0); Monocytes % (A) 2 %; Neutrophils # (A) 10.8 k/uL (1.3-7.7); Neutrophils % (A) 93 %; Platelet Count 216 k/uL (150-450); RBC 4.64 m/uL (4.30-5.90); RDW 17.3 % (11.5-15.5); WBC 11.6 k/uL (3.8-10.6)
[2017-11-17 15:15] LABS: INR 1.2 (<1.2); Partial Thromboplastin Time 27.3 sec (22.0-30.0); Prothrombin Time 11.7 sec (9.0-12.0)
[2017-11-17] MEDS ORDERED: NALOXONE 0.4 MG/ML 1 ML VIAL IV PRN (15:17)
--- NOTE | 2017-11-17 15:51 | P.PN ---
Subjective Progress Note Date: 11/17/17 This 67-year-old gentleman with history of paroxysmal atrial fibrillation and chronic symptoms of shortness of breath was evaluated by Dr. VC Hamlin with cardiac catheterization. Patient had a [place]-Brend[place] catheter. He was found to have low cardiac output and evidence of moderate pulmonary hypertension in the range of 60/30. Patient end-diastolic pressure was also 30 and right-sided pressures also in the range of 30. There is a consideration that patient may have restrictive cardiomyopathy. Patient was started on IV Lasix. Patient has been diuresing fairly well. His PA pressures in the range of 50/20. This seemed to be some improvement and cardiac index though there are some technical difficulties obtaining cardiac output. Patient is feeling better and appears to be less short of breath. He is being started on Aldactone and also Entresto by Dr. MCLAUGHLIN. His proBNP is within normal limit. We'll continue current medical therapy Objective - Vital Signs Vital signs: Vital Signs Temp 98.2 F 11/17/17 12:00 Pulse 75 11/17/17 15:35 Resp 25 H 11/17/17 15:00 BP 115/45 11/17/17 15:00 Pulse Ox 88 L 11/17/17 15:00 Intake & Output 11/16/17 11/17/17 11/17/17 18:59 06:59 18:59 Intake Total 485 1334 805.750 Output Total 1000 1850 1510 Balance -515 -516 -704.250 Weight 136.078 kg 141.3 kg 141.3 kg Intake: IV 485 934 734 Furosemide 250 mg In 10 50 40 Sodium Chloride 0.9% 225 ml @ 5 MG/HR 5 mls/hr IV .Q24H [facility] Rx#:[id number] Sodium Chloride 0.9% 1, 150 825 640 000 ml @ 75 mls/hr IV . [id number] [facility] Rx#:[id number] pressure bag 59 54 Intake, IV Titration 71.750 Amount Nitroglycerin-D5w Pmx 50 71.750 mg In Dextrose/Water 1 250ml.bag @ Titrate IV . Q0M [facility] Rx#:[id number] Oral 400 Output: Urine 1000 1850 1510 Other: Voiding Method Indwelling Catheter Indwelling Catheter ABP, PAP, CO, CI - Last Documented Pulmonary Artery Pressure 47/22 Cardiac Output 6.5 Cardiac Index 6.5 - Exam GENERAL EXAM: Patient is alert and oriented and doesn't appear to be in any acute distress HEENT: Normocephalic. Normal reaction of pupils, equal size, normal range of extraocular motion. No erythema or exudates in the throat. NECK: No masses, no nuchal rigidity. CHEST: No chest wall deformity. LUNGS: Equal air entry with no crackles or wheeze. HEART: S1 and S2 normal with no audible mumurs or gallops. Regular rhythm, femorals equal on both sides.. ABDOMEN: No hepatosplenomegaly, normal bowel sounds, no guarding or rigidity. SKIN: No rashes CENTRAL NERVOUS SYSTEM: No focal deficits. EXTREMITIES: Mild edema - Labs CBC & Chem 7: 11/17/17 14:45 11/17/17 04:21 Labs: Abnormal Lab Results - Last 24 Hours (Table) 11/16/17 11/16/17 11/16/17 Range/Units 15:18 17:13 18:59 WBC (3.8-10.6) k/uL MCHC (31.0-37.0) g/dL RDW (11.5-15.5) % Neutrophils # (1.3-7.7) k/uL Lymphocytes # (1.0-4.8) k/uL INR (<1.2) ABG pCO2 65 H (35-45) mmHg ABG pO2 82 L (83-108) mmHg ABG HCO3 35 H (21-25) mmol/L ABG Total CO2 37 H (19-24) mmol/L Chloride 97 L (98-107) mmol/L Carbon Dioxide 36 H (22-30) mmol/L Glucose 137 H (74-99) mg/dL POC Glucose (mg/dL) 144 H (75-99) mg/dL 11/16/17 11/17/17 11/17/17 Range/Units 21:33 02:18 04:21 WBC (3.8-10.6) k/uL MCHC (31.0-37.0) g/dL RDW (11.5-15.5) % Neutrophils # (1.3-7.7) k/uL Lymphocytes # (1.0-4.8) k/uL INR (<1.2) ABG pCO2 (35-45) mmHg ABG pO2 (83-108) mmHg ABG HCO3 (21-25) mmol/L ABG Total CO2 (19-24) mmol/L Chloride 94 L (98-107) mmol/L Carbon Dioxide 33 H (22-30) mmol/L Glucose 206 H (74-99) mg/dL POC Glucose (mg/dL) 198 H 198 H (75-99) mg/dL 11/17/17 11/17/17 11/17/17 Range/Units 04:47 07:14 12:32 WBC (3.8-10.6) k/uL MCHC 30.5 L (31.0-37.0) g/dL RDW 17.2 H (11.5-15.5) % Neutrophils # 7.9 H (1.3-7.7) k/uL Lymphocytes # 0.6 L (1.0-4.8) k/uL INR (<1.2) ABG pCO2 (35-45) mmHg ABG pO2 (83-108) mmHg ABG HCO3 (21-25) mmol/L ABG Total CO2 (19-24) mmol/L Chloride (98-107) mmol/L Carbon Dioxide (22-30) mmol/L Glucose (74-99) mg/dL POC Glucose (mg/dL) 269 H 310 H (75-99) mg/dL 11/17/17 11/17/17 Range/Units 14:45 14:45 WBC 11.6 H (3.8-10.6) k/uL MCHC (31.0-37.0) g/dL RDW 17.3 H (11.5-15.5) % Neutrophils # 10.8 H (1.3-7.7) k/uL Lymphocytes # 0.5 L (1.0-4.8) k/uL INR 1.2 H (<1.2) ABG pCO2 (35-45) mmHg ABG pO2 (83-108) mmHg ABG HCO3 (21-25) mmol/L ABG Total CO2 (19-24) mmol/L Chloride (98-107) mmol/L Carbon Dioxide (22-30) mmol/L Glucose (74-99) mg/dL POC Glucose (mg/dL) (75-99) mg/dL Assessment and Plan (1) Pulmonary hypertension Current Visit: Yes Status: Acute Code(s): I27.20 - PULMONARY HYPERTENSION, UNSPECIFIED SNOMED Code(s): 66343405 (2) A-fib Current Visit: No Status: Acute Code(s): I48.91 - UNSPECIFIED ATRIAL FIBRILLATION SNOMED Code(s): 88776419 (3) Carcinoid tumor of small intestine Current Visit: No Status: Acute Code(s): D3A.019 - BENIGN CARCINOID TUMOR OF THE SMALL INTESTINE, UNSP PORTION SNOMED Code(s): 283539556 Plan: Continue current management as planned by Dr. VC Hamlin. Possible removal of [place]-Brend[place] catheter on Sunday.
[2017-11-17] MEDS: FUROSEMIDE 250 MG in SODIUM CHLORIDE 0.9% 225 ML IVP SCH (16:29)
[2017-11-17 17:26] LABS: Glucose,Whole Blood 377 mg/dL (75-99)
[2017-11-17] MEDS ORDERED: INSULIN REGULAR BOLUS (FROM DRIP BAG) IV PRN (17:35)
[2017-11-17] MEDS: INSULIN REGULAR 100 UNIT in SODIUM CHLORIDE 0.9% 100 ML IV SCH ×2 (18:01→20:58)
[2017-11-17 18:35] LABS: Glucose,Whole Blood 363 mg/dL (75-99)
[2017-11-17 19:12] LABS: Glucose,Whole Blood 460 mg/dL (75-99)
[2017-11-17 19:20] LABS: Glucose,Whole Blood 296 mg/dL (75-99)
[2017-11-17 20:17] LABS: Glucose,Whole Blood 232 mg/dL (75-99)
[2017-11-17 20:54] LABS: Glucose,Whole Blood 207 mg/dL (75-99)
[2017-11-17] MEDS ORDERED: SACUBITRIL/VALSARTAN 24 MG-26 MG TABLET PO SCH (21:00)
[2017-11-17 21:58] LABS: Glucose,Whole Blood 179 mg/dL (75-99)
[2017-11-17 23:07] LABS: Glucose,Whole Blood 142 mg/dL (75-99)
[2017-11-17 23:58] LABS: Glucose,Whole Blood 158 mg/dL (75-99)
[2017-11-18 01:08] LABS: Glucose,Whole Blood 158 mg/dL (75-99)
[2017-11-18 02:05] LABS: Glucose,Whole Blood 160 mg/dL (75-99)
[2017-11-18 04:19] LABS: Glucose,Whole Blood 177 mg/dL (75-99)
[2017-11-18 05:09] LABS: Glucose,Whole Blood 193 mg/dL (75-99)
[2017-11-18] MEDS: DOFETILIDE 500 MCG CAP PO SCH ×2 (05:51→18:09)
[2017-11-18] MEDS: methylPREDNISolone SOD SUCCI 125 MG/2 ML VIAL IV SCH ×3 (05:51→18:08)
[2017-11-18 05:55] LABS: Glucose,Whole Blood 194 mg/dL (75-99)
[2017-11-18 06:53] LABS: Glucose,Whole Blood 176 mg/dL (75-99)
[2017-11-18 06:55] LABS: Anisocytosis Slight; Basophils % (A) 0 %; Eosinophils % (A) 0 %; HCT 42.8 % (39.0-53.0); HGB 12.8 gm/dL (13.0-17.5); Hypochromasia Moderate; Lymphocytes # (A) 0.7 k/uL (1.0-4.8); Lymphocytes % (A) 4 %; MCH 27.3 pg (25.0-35.0); MCHC 29.9 g/dL (31.0-37.0); MCV 91.1 fL (80.0-100.0); Mean Platelet Volume 7.4; Monocytes # (A) 0.4 k/uL (0-1.0); Monocytes % (A) 2 %; Neutrophils # (A) 15.6 k/uL (1.3-7.7); Neutrophils % (A) 93 %; Platelet Count 213 k/uL (150-450); RBC 4.69 m/uL (4.30-5.90); RDW 17.2 % (11.5-15.5); WBC 16.8 k/uL (3.8-10.6)
[2017-11-18 07:08] LABS: Calcium 8.3 mg/dL (8.4-10.2); Magnesium 1.9 mg/dL (1.6-2.3); Phosphorus 4.9 mg/dL (2.5-4.5); Potassium 4.1 mmol/L (3.5-5.1)
--- NOTE | 2017-11-18 07:35 | XR ---
EXAMINATION TYPE: XR chest 1V DATE OF EXAM: 11/18/2017 COMPARISON: Prior chest x-ray 11/17/2017 HISTORY: Congestive heart failure TECHNIQUE: Single frontal view of the chest is obtained. FINDINGS: There is no focal air space opacity, pleural effusion, or pneumothorax seen. The cardiac silhouette size is stable and enlarged. The patient is post median sternotomy and rotated, there ar e overlying cardiac leads. Minimal patchy basilar density persists. The osseous structures are intact . IMPRESSION: Suspect some basilar atelectasis or scarring, suggest follow-up PA and lateral chest x-r ay.
[2017-11-18] MEDS: metFORMIN 500 MG TAB PO SCH ×2 (08:01→18:09)
[2017-11-18] MEDS: SPIRONOLACTONE 25 MG TAB PO SCH ×2 (08:02→22:00)
[2017-11-18] MEDS: PANTOPRAZOLE 40 MG TABLET PO SCH (08:02)
[2017-11-18] MEDS: METOPROLOL SUCCINATE (ER) 50 MG TAB.ER.24H PO SCH (08:03)
[2017-11-18] MEDS: NON-FORMULARY DRUG (Canagliflozin [Invokana] 100 MG) PO SCH (08:03)
[2017-11-18] MEDS: PREGABALIN 100 MG CAP PO SCH ×2 (08:14→20:57)
[2017-11-18 08:19] LABS: Glucose,Whole Blood 196 mg/dL (75-99)
[2017-11-18] MEDS: IPRATROPIUM-ALBUTEROL 3 ML NEB INHALATION SCH ×4 (08:33→20:33)
[2017-11-18] MEDS: SYMBICORT 160-4.5 MCG INHALER INHALATION SCH ×2 (08:33→20:33)
--- NOTE | 2017-11-18 08:34 | P.PN ---
Subjective Progress Note Date: 11/18/17 This 67-year-old gentleman with history of paroxysmal atrial fibrillation and chronic symptoms of shortness of breath was evaluated by Dr. VC Hamlin with cardiac catheterization. Patient had a [place]-Brend[place] catheter. He was found to have low cardiac output and evidence of moderate pulmonary hypertension in the range of 60/30. Patient end-diastolic pressure was also 30 and right-sided pressures also in the range of 30. There is a consideration that patient may have restrictive cardiomyopathy. Patient was started on IV Lasix. Patient has been diuresing fairly well. His PA pressures in the range of 50/20. This seemed to be some improvement and cardiac index though there are some technical difficulties obtaining cardiac output. Patient is feeling better and appears to be less short of breath. He is being started on Aldactone and also Entresto by Dr. MCLAUGHLIN. His proBNP is within normal limit. We'll continue current medical therapy . 11/18/2017: Patient continues to feel better. He is less short of breath. His Lasix drip has been increased. His urine output has picked up. Patient is on steroids. His white count is high. No fever or chills. Patient has some oozing from the groin. Lungs are clear. Heart is regular. Electrolytes are within normal limits. We'll continue with current medical therapy. Possible removal of [place]-Brendon catheter tomorrow . Objective - Vital Signs Vital signs: Vital Signs Temp 97.2 F L 11/18/17 08:00 Pulse 64 11/18/17 08:00 Resp 21 11/18/17 08:00 BP 128/59 11/18/17 08:00 Pulse Ox 94 L 11/18/17 08:00 Intake & Output 11/17/17 11/18/17 11/18/17 18:59 06:59 18:59 Intake Total 1088.199 847.450 337.140 Output Total 1650 885 200 Balance -561.801 -37.550 137.140 Weight 141.3 kg 144.3 kg Intake: IV 947 592 46 0.9ns CO/CI 70 40 Furosemide 250 mg In 45 Sodium Chloride 0.9% 225 ml @ 5 MG/HR 5 mls/hr IV .Q24H [facility] Rx#:[id number] Sodium Chloride 0.9% 1, 160 480 40 000 ml @ 40 mls/hr IV . Q24H [facility] Rx#:[id number] Sodium Chloride 0.9% 1, 600 000 ml @ 75 mls/hr IV . [id number] [facility] Rx#:[id number] pressure bag 72 72 6 Intake, IV Titration 141.199 255.450 291.140 Amount Heparin Sodium,Porcine/ 146 267.237 D5w Pmx 25,000 unit In Dextrose/Water 1 500ml. bag @ 7.078 UNITS/KG/HR 20 mls/hr IV .Q24H [facility] Rx #:[id number] Insulin Regular 100 unit 15.874 109.450 23.903 In Sodium Chloride 0.9% 100 ml @ Per Protocol IV .Q0M [facility] Rx#:[id number] Nitroglycerin-D5w Pmx 50 125.325 mg In Dextrose/Water 1 250ml.bag @ Titrate IV . Q0M [facility] Rx#:[id number] Output: Urine 1650 885 200 Other: Voiding Method Indwelling Catheter Indwelling Catheter ABP, PAP, CO, CI - Last Documented Pulmonary Artery Pressure 41/18 Cardiac Output 7.7 Cardiac Index 3.0 - Exam GENERAL EXAM: Patient is alert and oriented and doesn't appear to be in any acute distress HEENT: Normocephalic. Normal reaction of pupils, equal size, normal range of extraocular motion. No erythema or exudates in the throat. NECK: No masses, no nuchal rigidity. CHEST: No chest wall deformity. LUNGS: Equal air entry with no crackles or wheeze. HEART: S1 and S2 normal with no audible mumurs or gallops. Regular rhythm, femorals equal on both sides.. ABDOMEN: No hepatosplenomegaly, normal bowel sounds, no guarding or rigidity. SKIN: No rashes CENTRAL NERVOUS SYSTEM: No focal deficits. EXTREMITIES: Mild edema - Labs CBC & Chem 7: 11/18/17 05:46 11/18/17 05:46 Labs: Abnormal Lab Results - Last 24 Hours (Table) 11/17/17 11/17/17 11/17/17 Range/Units 12:32 14:45 14:45 WBC 11.6 H (3.8-10.6) k/uL Hgb (13.0-17.5) gm/dL MCHC (31.0-37.0) g/dL RDW 17.3 H (11.5-15.5) % Neutrophils # 10.8 H (1.3-7.7) k/uL Lymphocytes # 0.5 L (1.0-4.8) k/uL INR 1.2 H (<1.2) APTT (22.0-30.0) sec Chloride (98-107) mmol/L Carbon Dioxide (22-30) mmol/L BUN (9-20) mg/dL Glucose (74-99) mg/dL POC Glucose (mg/dL) 310 H (75-99) mg/dL Calcium (8.4-10.2) mg/dL Phosphorus (2.5-4.5) mg/dL 11/17/17 11/17/17 11/17/17 Range/Units 17:23 18:33 19:10 WBC (3.8-10.6) k/uL Hgb (13.0-17.5) gm/dL MCHC (31.0-37.0) g/dL RDW (11.5-15.5) % Neutrophils # (1.3-7.7) k/uL Lymphocytes # (1.0-4.8) k/uL INR (<1.2) APTT (22.0-30.0) sec Chloride (98-107) mmol/L Carbon Dioxide (22-30) mmol/L BUN (9-20) mg/dL Glucose (74-99) mg/dL POC Glucose (mg/dL) 377 H 363 H 460 H (75-99) mg/dL Calcium (8.4-10.2) mg/dL Phosphorus (2.5-4.5) mg/dL 11/17/17 11/17/17 11/17/17 Range/Units 19:19 20:15 20:52 WBC (3.8-10.6) k/uL Hgb (13.0-17.5) gm/dL MCHC (31.0-37.0) g/dL RDW (11.5-15.5) % Neutrophils # (1.3-7.7) k/uL Lymphocytes # (1.0-4.8) k/uL INR (<1.2) APTT (22.0-30.0) sec Chloride (98-107) mmol/L Carbon Dioxide (22-30) mmol/L BUN (9-20) mg/dL Glucose (74-99) mg/dL POC Glucose (mg/dL) 296 H 232 H 207 H (75-99) mg/dL Calcium (8.4-10.2) mg/dL Phosphorus (2.5-4.5) mg/dL 11/17/17 11/17/17 11/17/17 Range/Units 21:56 23:06 23:57 WBC (3.8-10.6) k/uL Hgb (13.0-17.5) gm/dL MCHC (31.0-37.0) g/dL RDW (11.5-15.5) % Neutrophils # (1.3-7.7) k/uL Lymphocytes # (1.0-4.8) k/uL INR (<1.2) APTT (22.0-30.0) sec Chloride (98-107) mmol/L Carbon Dioxide (22-30) mmol/L BUN (9-20) mg/dL Glucose (74-99) mg/dL POC Glucose (mg/dL) 179 H 142 H 158 H (75-99) mg/dL Calcium (8.4-10.2) mg/dL Phosphorus (2.5-4.5) mg/dL 11/18/17 11/18/17 11/18/17 Range/Units 01:07 02:04 04:17 WBC (3.8-10.6) k/uL Hgb (13.0-17.5) gm/dL MCHC (31.0-37.0) g/dL RDW (11.5-15.5) % Neutrophils # (1.3-7.7) k/uL Lymphocytes # (1.0-4.8) k/uL INR (<1.2) APTT (22.0-30.0) sec Chloride (98-107) mmol/L Carbon Dioxide (22-30) mmol/L BUN (9-20) mg/dL Glucose (74-99) mg/dL POC Glucose (mg/dL) 158 H 160 H 177 H (75-99) mg/dL Calcium (8.4-10.2) mg/dL Phosphorus (2.5-4.5) mg/dL 11/18/17 11/18/17 11/18/17 Range/Units 05:08 05:46 05:46 WBC 16.8 H (3.8-10.6) k/uL Hgb 12.8 L (13.0-17.5) gm/dL MCHC 29.9 L (31.0-37.0) g/dL RDW 17.2 H (11.5-15.5) % Neutrophils # 15.6 H (1.3-7.7) k/uL Lymphocytes # 0.7 L (1.0-4.8) k/uL INR (<1.2) APTT (22.0-30.0) sec Chloride 90 L (98-107) mmol/L Carbon Dioxide 34 H (22-30) mmol/L BUN 34 H (9-20) mg/dL Glucose 181 H (74-99) mg/dL POC Glucose (mg/dL) 193 H (75-99) mg/dL Calcium 8.3 L (8.4-10.2) mg/dL Phosphorus 4.9 H (2.5-4.5) mg/dL 11/18/17 11/18/17 11/18/17 Range/Units 05:46 05:54 06:51 WBC (3.8-10.6) k/uL Hgb (13.0-17.5) gm/dL MCHC (31.0-37.0) g/dL RDW (11.5-15.5) % Neutrophils # (1.3-7.7) k/uL Lymphocytes # (1.0-4.8) k/uL INR (<1.2) APTT 37.6 H (22.0-30.0) sec Chloride (98-107) mmol/L Carbon Dioxide (22-30) mmol/L BUN (9-20) mg/dL Glucose (74-99) mg/dL POC Glucose (mg/dL) 194 H 176 H (75-99) mg/dL Calcium (8.4-10.2) mg/dL Phosphorus (2.5-4.5) mg/dL 11/18/17 Range/Units 08:18 WBC (3.8-10.6) k/uL Hgb (13.0-17.5) gm/dL MCHC (31.0-37.0) g/dL RDW (11.5-15.5) % Neutrophils # (1.3-7.7) k/uL Lymphocytes # (1.0-4.8) k/uL INR (<1.2) APTT (22.0-30.0) sec Chloride (98-107) mmol/L Carbon Dioxide (22-30) mmol/L BUN (9-20) mg/dL Glucose (74-99) mg/dL POC Glucose (mg/dL) 196 H (75-99) mg/dL Calcium (8.4-10.2) mg/dL Phosphorus (2.5-4.5) mg/dL Assessment and Plan (1) Pulmonary hypertension Current Visit: Yes Status: Acute Code(s): I27.20 - PULMONARY HYPERTENSION, UNSPECIFIED SNOMED Code(s): 15317447 (2) A-fib Current Visit: No Status: Acute Code(s): I48.91 - UNSPECIFIED ATRIAL FIBRILLATION SNOMED Code(s): 20701093 (3) Carcinoid tumor of small intestine Current Visit: No Status: Acute Code(s): D3A.019 - BENIGN CARCINOID TUMOR OF THE SMALL INTESTINE, UNSP PORTION SNOMED Code(s): 321340761 Plan: Patient is feeling better. He is less short of breath. His pulmonary artery pressures is improved. Continue current medical therapy
[2017-11-18 09:11] LABS: Glucose,Whole Blood 201 mg/dL (75-99)
[2017-11-18 10:13] LABS: Glucose,Whole Blood 173 mg/dL (75-99)
[2017-11-18] MEDS: HYDROcodone/APAP 5-325MG 1 EACH TAB PO PRN (10:37)
[2017-11-18] MEDS: INSULIN REGULAR 100 UNIT in SODIUM CHLORIDE 0.9% 100 ML IV SCH ×2 (11:17→18:56)
[2017-11-18 11:28] LABS: Glucose,Whole Blood 143 mg/dL (75-99)
[2017-11-18] MEDS: MAGNESIUM SULFATE-D5W PMX 1 GM in DEXTROSE/WATER 1 100ML.BAG IVPB SCH ×2 (12:00→13:52)
--- NOTE | 2017-11-18 12:13 | P.PN ---
Subjective Progress Note Date: 11/18/17 Principal diagnosis: Shortness breath and heart failure Patient continued to be hemodynamically stable overnight but his glucose kept fluctuating until I started the insulin drip which caused immediate control for his glucoses for target. Patient continued to have Lasix drip at 5 mg/h which was increased to 10 mg/h and later down to 5 mg/h by cardiology. Patient is feeding better and he thinks he is at least 50% improved since admission. Patient still have the [place] catheter in the right groin. Patient is denying chest pain nausea vomiting about pain dizziness but he is complaining of cough that it's bothering him and usually he treats the by walking and coughing up phlegm but given that the catheter in his right groin he cannot stand up and that's and it's annoying him. Objective - Vital Signs Vital signs: Vital Signs Temp 97.2 F L 11/18/17 08:00 Pulse 68 11/18/17 12:04 Resp 18 11/18/17 10:00 BP 131/52 11/18/17 10:00 Pulse Ox 89 L 11/18/17 10:00 Intake & Output 11/17/17 11/18/17 11/18/17 18:59 06:59 18:59 Intake Total 1088.199 847.450 663.985 Output Total 1650 885 930 Balance -561.801 -37.550 -266.015 Weight 141.3 kg 144.3 kg Intake: IV 947 592 184 0.9ns CO/CI 70 40 Furosemide 250 mg In 45 Sodium Chloride 0.9% 225 ml @ 5 MG/HR 5 mls/hr IV .Q24H [facility] Rx#:[id number] Sodium Chloride 0.9% 1, 160 480 160 000 ml @ 40 mls/hr IV . Q24H [facility] Rx#:[id number] Sodium Chloride 0.9% 1, 600 000 ml @ 75 mls/hr IV . [id number] [facility] Rx#:[id number] pressure bag 72 72 24 Intake, IV Titration 141.199 255.450 479.985 Amount Furosemide 250 mg In 87.167 Sodium Chloride 0.9% 225 ml @ 10 MG/HR 10 mls/hr IVP .Q24H [facility] Rx#: [id number] Heparin Sodium,Porcine/ 146 354.000 D5w Pmx 25,000 unit In Dextrose/Water 1 500ml. bag @ 7.078 UNITS/KG/HR 20 mls/hr IV .Q24H [facility] Rx #:[id number] Insulin Regular 100 unit 15.874 109.450 38.818 In Sodium Chloride 0.9% 100 ml @ Per Protocol IV .Q0M [facility] Rx#:[id number] Nitroglycerin-D5w Pmx 50 125.325 mg In Dextrose/Water 1 250ml.bag @ Titrate IV . Q0M [facility] Rx#:[id number] Output: Urine 1650 885 930 Other: Voiding Method Indwelling Catheter Indwelling Catheter ABP, PAP, CO, CI - Last Documented Pulmonary Artery Pressure 39/17 Cardiac Output 7.7 Cardiac Index 3.0 - Exam Gen.: in stated age, no acute distress Heart: Normal S1-S2 Lungs: Coarse breathing sounds bilaterally Abdomen: Soft, no tenderness, positive bowel sounds in all 4 quadrant no guarding or rebound Skin: No new rash Psych: Alert and oriented 3 Neuro: No focal deficit Right groin positive for catheter in place without obvious bleeding - Labs CBC & Chem 7: 11/18/17 05:46 11/18/17 05:46 Labs: Abnormal Lab Results - Last 24 Hours (Table) 11/16/17 11/17/17 11/17/17 Range/Units 15:18 12:32 14:45 WBC 11.6 H (3.8-10.6) k/uL Hgb (13.0-17.5) gm/dL MCHC (31.0-37.0) g/dL RDW 17.3 H (11.5-15.5) % Neutrophils # 10.8 H (1.3-7.7) k/uL Lymphocytes # 0.5 L (1.0-4.8) k/uL INR (<1.2) APTT (22.0-30.0) sec Chloride (98-107) mmol/L Carbon Dioxide (22-30) mmol/L BUN (9-20) mg/dL Glucose (74-99) mg/dL POC Glucose (mg/dL) 310 H (75-99) mg/dL Hemoglobin A1c 7.3 H (4.0-6.0) % Calcium (8.4-10.2) mg/dL Phosphorus (2.5-4.5) mg/dL 11/17/17 11/17/17 11/17/17 Range/Units 14:45 17:23 18:33 WBC (3.8-10.6) k/uL Hgb (13.0-17.5) gm/dL MCHC (31.0-37.0) g/dL RDW (11.5-15.5) % Neutrophils # (1.3-7.7) k/uL Lymphocytes # (1.0-4.8) k/uL INR 1.2 H (<1.2) APTT (22.0-30.0) sec Chloride (98-107) mmol/L Carbon Dioxide (22-30) mmol/L BUN (9-20) mg/dL Glucose (74-99) mg/dL POC Glucose (mg/dL) 377 H 363 H (75-99) mg/dL Hemoglobin A1c (4.0-6.0) % Calcium (8.4-10.2) mg/dL Phosphorus (2.5-4.5) mg/dL 11/17/17 11/17/17 11/17/17 Range/Units 19:10 19:19 20:15 WBC (3.8-10.6) k/uL Hgb (13.0-17.5) gm/dL MCHC (31.0-37.0) g/dL RDW (11.5-15.5) % Neutrophils # (1.3-7.7) k/uL Lymphocytes # (1.0-4.8) k/uL INR (<1.2) APTT (22.0-30.0) sec Chloride (98-107) mmol/L Carbon Dioxide (22-30) mmol/L BUN (9-20) mg/dL Glucose (74-99) mg/dL POC Glucose (mg/dL) 460 H 296 H 232 H (75-99) mg/dL Hemoglobin A1c (4.0-6.0) % Calcium (8.4-10.2) mg/dL Phosphorus (2.5-4.5) mg/dL 11/17/17 11/17/17 11/17/17 Range/Units 20:52 21:56 23:06 WBC (3.8-10.6) k/uL Hgb (13.0-17.5) gm/dL MCHC (31.0-37.0) g/dL RDW (11.5-15.5) % Neutrophils # (1.3-7.7) k/uL Lymphocytes # (1.0-4.8) k/uL INR (<1.2) APTT (22.0-30.0) sec Chloride (98-107) mmol/L Carbon Dioxide (22-30) mmol/L BUN (9-20) mg/dL Glucose (74-99) mg/dL POC Glucose (mg/dL) 207 H 179 H 142 H (75-99) mg/dL Hemoglobin A1c (4.0-6.0) % Calcium (8.4-10.2) mg/dL Phosphorus (2.5-4.5) mg/dL 11/17/17 11/18/17 11/18/17 Range/Units 23:57 01:07 02:04 WBC (3.8-10.6) k/uL Hgb (13.0-17.5) gm/dL MCHC (31.0-37.0) g/dL RDW (11.5-15.5) % Neutrophils # (1.3-7.7) k/uL Lymphocytes # (1.0-4.8) k/uL INR (<1.2) APTT (22.0-30.0) sec Chloride (98-107) mmol/L Carbon Dioxide (22-30) mmol/L BUN (9-20) mg/dL Glucose (74-99) mg/dL POC Glucose (mg/dL) 158 H 158 H 160 H (75-99) mg/dL Hemoglobin A1c (4.0-6.0) % Calcium (8.4-10.2) mg/dL Phosphorus (2.5-4.5) mg/dL 11/18/17 11/18/17 11/18/17 Range/Units 04:17 05:08 05:46 WBC 16.8 H (3.8-10.6) k/uL Hgb 12.8 L (13.0-17.5) gm/dL MCHC 29.9 L (31.0-37.0) g/dL RDW 17.2 H (11.5-15.5) % Neutrophils # 15.6 H (1.3-7.7) k/uL Lymphocytes # 0.7 L (1.0-4.8) k/uL INR (<1.2) APTT (22.0-30.0) sec Chloride (98-107) mmol/L Carbon Dioxide (22-30) mmol/L BUN (9-20) mg/dL Glucose (74-99) mg/dL POC Glucose (mg/dL) 177 H 193 H (75-99) mg/dL Hemoglobin A1c (4.0-6.0) % Calcium (8.4-10.2) mg/dL Phosphorus (2.5-4.5) mg/dL 11/18/17 11/18/17 11/18/17 Range/Units 05:46 05:46 05:54 WBC (3.8-10.6) k/uL Hgb (13.0-17.5) gm/dL MCHC (31.0-37.0) g/dL RDW (11.5-15.5) % Neutrophils # (1.3-7.7) k/uL Lymphocytes # (1.0-4.8) k/uL INR (<1.2) APTT 37.6 H (22.0-30.0) sec Chloride 90 L (98-107) mmol/L Carbon Dioxide 34 H (22-30) mmol/L BUN 34 H (9-20) mg/dL Glucose 181 H (74-99) mg/dL POC Glucose (mg/dL) 194 H (75-99) mg/dL Hemoglobin A1c (4.0-6.0) % Calcium 8.3 L (8.4-10.2) mg/dL Phosphorus 4.9 H (2.5-4.5) mg/dL 11/18/17 11/18/17 11/18/17 Range/Units 06:51 08:18 09:09 WBC (3.8-10.6) k/uL Hgb (13.0-17.5) gm/dL MCHC (31.0-37.0) g/dL RDW (11.5-15.5) % Neutrophils # (1.3-7.7) k/uL Lymphocytes # (1.0-4.8) k/uL INR (<1.2) APTT (22.0-30.0) sec Chloride (98-107) mmol/L Carbon Dioxide (22-30) mmol/L BUN (9-20) mg/dL Glucose (74-99) mg/dL POC Glucose (mg/dL) 176 H 196 H 201 H (75-99) mg/dL Hemoglobin A1c (4.0-6.0) % Calcium (8.4-10.2) mg/dL Phosphorus (2.5-4.5) mg/dL 11/18/17 11/18/17 Range/Units 10:11 11:26 WBC (3.8-10.6) k/uL Hgb (13.0-17.5) gm/dL MCHC (31.0-37.0) g/dL RDW (11.5-15.5) % Neutrophils # (1.3-7.7) k/uL Lymphocytes # (1.0-4.8) k/uL INR (<1.2) APTT (22.0-30.0) sec Chloride (98-107) mmol/L Carbon Dioxide (22-30) mmol/L BUN (9-20) mg/dL Glucose (74-99) mg/dL POC Glucose (mg/dL) 173 H 143 H (75-99) mg/dL Hemoglobin A1c (4.0-6.0) % Calcium (8.4-10.2) mg/dL Phosphorus (2.5-4.5) mg/dL Assessment and Plan Assessment: 1. Acute on chronic respiratory failure with hypoxia. 2. Dyspnea multifactorial in nature. 3. Acute diastolic heart failure exacerbation with right-sided heart failure, pulmonary hypertension. 4. Morbid obesity with obstructive sleep apnea. 5. Diabetes mellitus. 6. Hypertension. 7. Hyperlipidemia. 8. None compliance with diet and recommendation. Patient will be continued on Lasix drip and to be weaned off to oral medication per cardiology recommendation recommendation from cardiology to remove [place] from the right groin after holding heparin drip for 3 hours patient would benefit from resuming factor X inhibitors and wean off heparin drip as above. We'll continue with insulin drip while patient's on Solu-Medrol to have better glycemic control and consider weaning off steroids as tolerated. I have discussed with the nursing staff and respiratory therapist to start patients on the [place] with breathing treatment and start ambulating patient's once it's approved by cardiology. Discharge planning in the morning based on clinical progress
[2017-11-18] MEDS: LOSARTAN 50 MG TAB PO SCH (12:15)
[2017-11-18] MEDS ORDERED: MENTHOL (NICE) LOZENGE MUCOUS MEM PRN (12:26)
[2017-11-18 12:35] LABS: Glucose,Whole Blood 225 mg/dL (75-99)
[2017-11-18] MEDS ORDERED: ATROPINE SULFATE 0.1 MG/ML 10ML SYRINGE ONE (13:38)
[2017-11-18 13:48] LABS: Glucose,Whole Blood 243 mg/dL (75-99)
[2017-11-18 15:24] LABS: Glucose,Whole Blood 216 mg/dL (75-99)
[2017-11-18] MEDS ORDERED: MAGNESIUM SULFATE-D5W PMX 1 GM in DEXTROSE/WATER 1 100ML.BAG IVPB ONE (15:30)
[2017-11-18] MEDS: guaiFENesin 600 MG TABLET.ER PO SCH ×2 (15:42→20:57)
--- NOTE | 2017-11-18 16:16 | P.PN ---
Subjective Progress Note Date: 11/18/17 Principal diagnosis: Acute on chronic diastolic congestive heart failure and pulmonary hypertension with severe COPD. This is a 67-year-old white male with history of COPD, FEV1 is in the range of 40%, patient usually follows up with Dr. Velazquez on a regular basis. Patient is also status post previous coronary artery bypass surgery, he has been complaining of worsening dyspnea on exertion and orthopnea for the last 3 weeks. Shortness of breath has been getting progressively worse. Patient is also known to have history of atrial fibrillation. Controlled with Tikosyn. Patient had breakthrough atrial fibrillation, recently seen by cardiology, and a cardiac catheterization was recommended for further evaluation and for possibly considering ablation in the future. Yesterday, the patient underwent left and right heart catheterization, he was found to have patent SANDERS to LAD, and patent saphenous vein graft to the obtuse marginal branch. Patient was also noted to have significant pulmonary hypertension and pulmonary capillary wedge pressures were high with elevated left ventricular end-diastolic pressure. Chest x-ray showed minimal interstitial edema, patient had a pulmonary artery catheter placed by the software quality analyst, placed on Lasix drip at 5 mg per hour, transferred to the ICU for further optimization of his interstitial edema. Patient has been responding quite well to diuretics, however his pulmonary pressures remained basically the same. Clinically the patient is basically the same in spite of significant diuresis over the last 12 hours. All his meds were reviewed, and I believe he is going to be started on nitroglycerin drip as per cardiology. CBC is relatively normal. Basic metabolic profile is relatively normal, his bicarb is elevated as expected at 33 , renal profile is normal. Blood sugar is 269. During my evaluation in the ICU , patient had no headache, no blurred vision, no dizziness, no chest pain, he does have history of chronic shortness of breath, no palpitations, no nausea no vomiting no abdominal pain and melena no hematemesis no dysuria and no frequency no urgency. Reevaluated today on 11/18/2017, patient remains in the ICU, continues to have a pulmonary artery catheter in place, remains on Lasix drip, urine output is excellent, patient did not to do well with nitroglycerin drip, and his pulmonary artery pressures did not change much. Today's pulmonary artery pressure is 48/23. Slightly improved compared to yesterday. Chest x-ray is showing slight improvement. Continues to have some basilar atelectasis. Patient denies any fever no chills, no chest pain. No attempts have been made to wedge the pulmonary artery catheter, it is however noted to be in the proximal right pulmonary artery. Patient does have leukocytosis, but there is no clear-cut evidence of infection, believe his leukocytosis could be related to steroids. His renal functioning seems to be a bit worse, and I believe he may be over diuresed at this point. Objective - Vital Signs Vital signs: Vital Signs Temp 97.2 F L 11/18/17 08:00 Pulse 65 11/18/17 15:00 Resp 22 11/18/17 15:00 BP 119/59 11/18/17 15:00 Pulse Ox 89 L 11/18/17 15:00 Intake & Output 11/17/17 11/18/17 11/18/17 18:59 06:59 18:59 Intake Total 1088.199 847.450 946.556 Output Total 7807 647 1372 Balance -561.801 -37.550 -533.444 Weight 141.3 kg 144.3 kg Intake: IV 947 592 414 0.9ns CO/CI 70 40 Furosemide 250 mg In 45 Sodium Chloride 0.9% 225 ml @ 5 MG/HR 5 mls/hr IV .Q24H [facility] Rx#:[id number] Sodium Chloride 0.9% 1, 160 480 360 000 ml @ 40 mls/hr IV . Q24H [facility] Rx#:[id number] Sodium Chloride 0.9% 1, 600 000 ml @ 75 mls/hr IV . [id number] [facility] Rx#:[id number] pressure bag 72 72 54 Intake, IV Titration 141.199 255.450 532.556 Amount Furosemide 250 mg In 87.167 Sodium Chloride 0.9% 225 ml @ 10 MG/HR 10 mls/hr IVP .Q24H [facility] Rx#: [id number] Heparin Sodium,Porcine/ 146 354.000 D5w Pmx 25,000 unit In Dextrose/Water 1 500ml. bag @ 7.078 UNITS/KG/HR 20 mls/hr IV .Q24H [facility] Rx #:[id number] Insulin Regular 100 unit 15.874 109.450 91.389 In Sodium Chloride 0.9% 100 ml @ Per Protocol IV .Q0M [facility] Rx#:[id number] Nitroglycerin-D5w Pmx 50 125.325 mg In Dextrose/Water 1 250ml.bag @ Titrate IV . Q0M [facility] Rx#:[id number] Output: Urine 2650 633 3889 Other: Voiding Method Indwelling Catheter Indwelling Catheter ABP, PAP, CO, CI - Last Documented Pulmonary Artery Pressure 48/22 Cardiac Output 7.7 Cardiac Index 3.0 - Exam Physical Exam: Revealed a 67-year-old white male in no distress, on nasal cannula, and has a [place]-Brendon catheter from the right groin. Head: Atraumatic, normocephalic. HEENT:[Neck is supple.] [No neck masses.] [No thyromegaly.] [No JVD.] Chest: [Mechanical chest expansion bilaterally, diminished breath sounds at the bases, no crackles, no rhonchi, no wheezes..] Cardiac Exam: [Normal S1 and S2, no S3 gallop, no murmur.] Abdomen: [Obese, Soft, nontender, no megaly, no rebound, no guarding, normal bowel sounds.] Extremities: [No clubbing, no edema, no cyanosis.] Right groin was examined, and there is a [place]-Brendon catheter has catheter placed through the right groin. Neurological Exam: [No focal neurologic deficit.] Psychiatric: Normal mood, normal affect. Lymphatics: No lymphadenopathy. - Labs CBC & Chem 7: 11/18/17 05:46 11/18/17 05:46 Labs: Abnormal Lab Results - Last 24 Hours (Table) 11/16/17 11/17/17 11/17/17 Range/Units 15:18 17:23 18:33 WBC (3.8-10.6) k/uL Hgb (13.0-17.5) gm/dL MCHC (31.0-37.0) g/dL RDW (11.5-15.5) % Neutrophils # (1.3-7.7) k/uL Lymphocytes # (1.0-4.8) k/uL APTT (22.0-30.0) sec Chloride (98-107) mmol/L Carbon Dioxide (22-30) mmol/L BUN (9-20) mg/dL Glucose (74-99) mg/dL POC Glucose (mg/dL) 377 H 363 H (75-99) mg/dL Hemoglobin A1c 7.3 H (4.0-6.0) % Calcium (8.4-10.2) mg/dL Phosphorus (2.5-4.5) mg/dL 11/17/17 11/17/17 11/17/17 Range/Units 19:10 19:19 20:15 WBC (3.8-10.6) k/uL Hgb (13.0-17.5) gm/dL MCHC (31.0-37.0) g/dL RDW (11.5-15.5) % Neutrophils # (1.3-7.7) k/uL Lymphocytes # (1.0-4.8) k/uL APTT (22.0-30.0) sec Chloride (98-107) mmol/L Carbon Dioxide (22-30) mmol/L BUN (9-20) mg/dL Glucose (74-99) mg/dL POC Glucose (mg/dL) 460 H 296 H 232 H (75-99) mg/dL Hemoglobin A1c (4.0-6.0) % Calcium (8.4-10.2) mg/dL Phosphorus (2.5-4.5) mg/dL 11/17/17 11/17/17 11/17/17 Range/Units 20:52 21:56 23:06 WBC (3.8-10.6) k/uL Hgb (13.0-17.5) gm/dL MCHC (31.0-37.0) g/dL RDW (11.5-15.5) % Neutrophils # (1.3-7.7) k/uL Lymphocytes # (1.0-4.8) k/uL APTT (22.0-30.0) sec Chloride (98-107) mmol/L Carbon Dioxide (22-30) mmol/L BUN (9-20) mg/dL Glucose (74-99) mg/dL POC Glucose (mg/dL) 207 H 179 H 142 H (75-99) mg/dL Hemoglobin A1c (4.0-6.0) % Calcium (8.4-10.2) mg/dL Phosphorus (2.5-4.5) mg/dL 11/17/17 11/18/17 11/18/17 Range/Units 23:57 01:07 02:04 WBC (3.8-10.6) k/uL Hgb (13.0-17.5) gm/dL MCHC (31.0-37.0) g/dL RDW (11.5-15.5) % Neutrophils # (1.3-7.7) k/uL Lymphocytes # (1.0-4.8) k/uL APTT (22.0-30.0) sec Chloride (98-107) mmol/L Carbon Dioxide (22-30) mmol/L BUN (9-20) mg/dL Glucose (74-99) mg/dL POC Glucose (mg/dL) 158 H 158 H 160 H (75-99) mg/dL Hemoglobin A1c (4.0-6.0) % Calcium (8.4-10.2) mg/dL Phosphorus (2.5-4.5) mg/dL 11/18/17 11/18/17 11/18/17 Range/Units 04:17 05:08 05:46 WBC 16.8 H (3.8-10.6) k/uL Hgb 12.8 L (13.0-17.5) gm/dL MCHC 29.9 L (31.0-37.0) g/dL RDW 17.2 H (11.5-15.5) % Neutrophils # 15.6 H (1.3-7.7) k/uL Lymphocytes # 0.7 L (1.0-4.8) k/uL APTT (22.0-30.0) sec Chloride (98-107) mmol/L Carbon Dioxide (22-30) mmol/L BUN (9-20) mg/dL Glucose (74-99) mg/dL POC Glucose (mg/dL) 177 H 193 H (75-99) mg/dL Hemoglobin A1c (4.0-6.0) % Calcium (8.4-10.2) mg/dL Phosphorus (2.5-4.5) mg/dL 11/18/17 11/18/17 11/18/17 Range/Units 05:46 05:46 05:54 WBC (3.8-10.6) k/uL Hgb (13.0-17.5) gm/dL MCHC (31.0-37.0) g/dL RDW (11.5-15.5) % Neutrophils # (1.3-7.7) k/uL Lymphocytes # (1.0-4.8) k/uL APTT 37.6 H (22.0-30.0) sec Chloride 90 L (98-107) mmol/L Carbon Dioxide 34 H (22-30) mmol/L BUN 34 H (9-20) mg/dL Glucose 181 H (74-99) mg/dL POC Glucose (mg/dL) 194 H (75-99) mg/dL Hemoglobin A1c (4.0-6.0) % Calcium 8.3 L (8.4-10.2) mg/dL Phosphorus 4.9 H (2.5-4.5) mg/dL 11/18/17 11/18/17 11/18/17 Range/Units 06:51 08:18 09:09 WBC (3.8-10.6) k/uL Hgb (13.0-17.5) gm/dL MCHC (31.0-37.0) g/dL RDW (11.5-15.5) % Neutrophils # (1.3-7.7) k/uL Lymphocytes # (1.0-4.8) k/uL APTT (22.0-30.0) sec Chloride (98-107) mmol/L Carbon Dioxide (22-30) mmol/L BUN (9-20) mg/dL Glucose (74-99) mg/dL POC Glucose (mg/dL) 176 H 196 H 201 H (75-99) mg/dL Hemoglobin A1c (4.0-6.0) % Calcium (8.4-10.2) mg/dL Phosphorus (2.5-4.5) mg/dL 11/18/17 11/18/17 11/18/17 Range/Units 10:11 11:26 12:13 WBC (3.8-10.6) k/uL Hgb (13.0-17.5) gm/dL MCHC (31.0-37.0) g/dL RDW (11.5-15.5) % Neutrophils # (1.3-7.7) k/uL Lymphocytes # (1.0-4.8) k/uL APTT (22.0-30.0) sec Chloride (98-107) mmol/L Carbon Dioxide (22-30) mmol/L BUN (9-20) mg/dL Glucose (74-99) mg/dL POC Glucose (mg/dL) 173 H 143 H 225 H (75-99) mg/dL Hemoglobin A1c (4.0-6.0) % Calcium (8.4-10.2) mg/dL Phosphorus (2.5-4.5) mg/dL 11/18/17 11/18/17 Range/Units 13:46 15:21 WBC (3.8-10.6) k/uL Hgb (13.0-17.5) gm/dL MCHC (31.0-37.0) g/dL RDW (11.5-15.5) % Neutrophils # (1.3-7.7) k/uL Lymphocytes # (1.0-4.8) k/uL APTT (22.0-30.0) sec Chloride (98-107) mmol/L Carbon Dioxide (22-30) mmol/L BUN (9-20) mg/dL Glucose (74-99) mg/dL POC Glucose (mg/dL) 243 H 216 H (75-99) mg/dL Hemoglobin A1c (4.0-6.0) % Calcium (8.4-10.2) mg/dL Phosphorus (2.5-4.5) mg/dL Assessment and Plan Assessment: Impression: 1 chronic shortness of breath, multifactorial, secondary to severe COPD, secondary pulmonary hypertension, and acute on chronic diastolic congestive heart failure. And secondary to obesity/deconditioning. 2 secondary pulmonary hypertension secondary to COPD, obstructive sleep apnea syndrome. 3 paroxysmal atrial fibrillation, presently under control. 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 5 coronary artery disease, previous CABG. 6 type 2 diabetes with diabetic peripheral neuropathy 7 hypertension 8 restless leg syndrome 9 severe COPD, FEV1 is in the range of 41%. Recommendation: Continue present treatment plan, not much to be added from my perspective, his PA catheter is being managed by cardiology. We'll continue to follow. Time with Patient: Less than 30
[2017-11-18] MEDS: SODIUM CHLORIDE 0.9% 1,000 ML IV SCH (16:25)
[2017-11-18 16:30] LABS: Glucose,Whole Blood 272 mg/dL (75-99)
[2017-11-18 17:32] LABS: Glucose,Whole Blood 417 mg/dL (75-99)
[2017-11-18 17:32] LABS: Glucose,Whole Blood 203 mg/dL (75-99)
[2017-11-18 18:54] LABS: Glucose,Whole Blood 241 mg/dL (75-99)
[2017-11-18 20:14] LABS: Glucose,Whole Blood 254 mg/dL (75-99)
[2017-11-18 20:58] LABS: Glucose,Whole Blood 204 mg/dL (75-99)
[2017-11-18 22:04] LABS: Glucose,Whole Blood 223 mg/dL (75-99)
[2017-11-18 23:15] LABS: Glucose,Whole Blood 159 mg/dL (75-99)
[2017-11-19 00:12] LABS: Glucose,Whole Blood 158 mg/dL (75-99)
[2017-11-19] MEDS: methylPREDNISolone SOD SUCCI 125 MG/2 ML VIAL IV SCH ×2 (00:45→06:04)
[2017-11-19 01:06] LABS: Glucose,Whole Blood 128 mg/dL (75-99)
[2017-11-19 02:01] LABS: Glucose,Whole Blood 150 mg/dL (75-99)
[2017-11-19 02:55] LABS: Glucose,Whole Blood 165 mg/dL (75-99)
[2017-11-19 03:54] LABS: Glucose,Whole Blood 160 mg/dL (75-99)
[2017-11-19 04:54] LABS: Glucose,Whole Blood 155 mg/dL (75-99)
[2017-11-19 05:00] LABS: Anisocytosis Slight; Basophils % (A) 0 %; Eosinophils % (A) 0 %; HCT 45.4 % (39.0-53.0); HGB 13.6 gm/dL (13.0-17.5); Hypochromasia Moderate; Lymphocytes # (A) 0.6 k/uL (1.0-4.8); Lymphocytes % (A) 4 %; MCH 27.2 pg (25.0-35.0); MCHC 29.9 g/dL (31.0-37.0); MCV 91.1 fL (80.0-100.0); Mean Platelet Volume 7.3; Monocytes # (A) 0.4 k/uL (0-1.0); Monocytes % (A) 2 %; Neutrophils # (A) 15.2 k/uL (1.3-7.7); Neutrophils % (A) 94 %; Platelet Count 215 k/uL (150-450); RBC 4.98 m/uL (4.30-5.90); RDW 17.3 % (11.5-15.5); WBC 16.2 k/uL (3.8-10.6)
[2017-11-19] MEDS: FUROSEMIDE 250 MG in SODIUM CHLORIDE 0.9% 225 ML IVP SCH (05:15)
[2017-11-19 05:35] LABS: Calcium 8.2 mg/dL (8.4-10.2); Magnesium 2.4 mg/dL (1.6-2.3); Phosphorus 5.5 mg/dL (2.5-4.5)
[2017-11-19] MEDS: DOFETILIDE 500 MCG CAP PO SCH ×2 (06:04→17:52)
[2017-11-19 06:05] LABS: Glucose,Whole Blood 147 mg/dL (75-99)
[2017-11-19 07:09] LABS: Glucose,Whole Blood 147 mg/dL (75-99)
[2017-11-19] MEDS: SYMBICORT 160-4.5 MCG INHALER INHALATION SCH (07:54)
[2017-11-19] MEDS: IPRATROPIUM-ALBUTEROL 3 ML NEB INHALATION SCH ×4 (07:54→18:58)
--- NOTE | 2017-11-19 08:11 | XR ---
EXAMINATION TYPE: XR chest 1V portable DATE OF EXAM: 11/19/2017 COMPARISON: Prior chest 11/18/2017 HISTORY: Abnormal chest x-ray TECHNIQUE: Single frontal view of the chest is obtained. FINDINGS: There is no significant interval change evident. Patchy basilar density is noted. Question some increased to the interstitium. IMPRESSION: Correlate for pulmonary venous hypertension and interstitial edema.
[2017-11-19 08:14] LABS: Glucose,Whole Blood 234 mg/dL (75-99)
[2017-11-19] MEDS: INSULIN REGULAR 100 UNIT in SODIUM CHLORIDE 0.9% 100 ML IV SCH (08:23)
[2017-11-19] MEDS: PREGABALIN 100 MG CAP PO SCH ×2 (08:23→20:49)
[2017-11-19] MEDS: RIVAROXABAN 20 MG TAB PO SCH (08:24)
[2017-11-19] MEDS: PANTOPRAZOLE 40 MG TABLET PO SCH (08:24)
[2017-11-19] MEDS: METOPROLOL SUCCINATE (ER) 50 MG TAB.ER.24H PO SCH (08:24)
[2017-11-19] MEDS: guaiFENesin 600 MG TABLET.ER PO SCH ×2 (08:25→20:40)
[2017-11-19] MEDS: NON-FORMULARY DRUG (Canagliflozin [Invokana] 100 MG) PO SCH (08:25)
[2017-11-19] MEDS: metFORMIN 500 MG TAB PO SCH ×2 (08:25→17:52)
[2017-11-19] MEDS: HYDROcodone/APAP 5-325MG 1 EACH TAB PO PRN ×2 (08:26→16:00)
[2017-11-19] MEDS: SPIRONOLACTONE 25 MG TAB PO SCH ×2 (08:26→20:41)
[2017-11-19] MEDS: LOSARTAN 50 MG TAB PO SCH (08:26)
[2017-11-19 09:13] LABS: Glucose,Whole Blood 221 mg/dL (75-99)
--- NOTE | 2017-11-19 09:55 | P.PN ---
Subjective Progress Note Date: 11/19/17 Principal diagnosis: Acute on chronic diastolic congestive heart failure and pulmonary hypertension with severe COPD This is a 67-year-old white male with history of COPD, FEV1 is in the range of 40%, patient usually follows up with Dr. Velazquez on a regular basis. Patient is also status post previous coronary artery bypass surgery, he has been complaining of worsening dyspnea on exertion and orthopnea for the last 3 weeks. Shortness of breath has been getting progressively worse. Patient is also known to have history of atrial fibrillation. Controlled with Tikosyn. Patient had breakthrough atrial fibrillation, recently seen by cardiology, and a cardiac catheterization was recommended for further evaluation and for possibly considering ablation in the future. Yesterday, the patient underwent left and right heart catheterization, he was found to have patent SANDERS to LAD, and patent saphenous vein graft to the obtuse marginal branch. Patient was also noted to have significant pulmonary hypertension and pulmonary capillary wedge pressures were high with elevated left ventricular end-diastolic pressure. Chest x-ray showed minimal interstitial edema, patient had a pulmonary artery catheter placed by the shark biologist, placed on Lasix drip at 5 mg per hour, transferred to the ICU for further optimization of his interstitial edema. Patient has been responding quite well to diuretics, however his pulmonary pressures remained basically the same. Clinically the patient is basically the same in spite of significant diuresis over the last 12 hours. All his meds were reviewed, and I believe he is going to be started on nitroglycerin drip as per cardiology. CBC is relatively normal. Basic metabolic profile is relatively normal, his bicarb is elevated as expected at 33 , renal profile is normal. Blood sugar is 269. During my evaluation in the ICU , patient had no headache, no blurred vision, no dizziness, no chest pain, he does have history of chronic shortness of breath, no palpitations, no nausea no vomiting no abdominal pain and melena no hematemesis no dysuria and no frequency no urgency. Reevaluated today on 11/18/2017, patient remains in the ICU, continues to have a pulmonary artery catheter in place, remains on Lasix drip, urine output is excellent, patient did not to do well with nitroglycerin drip, and his pulmonary artery pressures did not change much. Today's pulmonary artery pressure is 48/23. Slightly improved compared to yesterday. Chest x-ray is showing slight improvement. Continues to have some basilar atelectasis. Patient denies any fever no chills, no chest pain. No attempts have been made to wedge the pulmonary artery catheter, it is however noted to be in the proximal right pulmonary artery. Patient does have leukocytosis, but there is no clear-cut evidence of infection, believe his leukocytosis could be related to steroids. His renal functioning seems to be a bit worse, and I believe he may be over diuresed at this point. On 11/19/2017 patient seen in follow-up in intensive care unit. He is in the recliner, denies any acute distress, he reports his dyspnea is improving. Currently on 4 L per nasal cannula with O2 sat 93%, as a congested cough, with occasional production of yellow sputum. Lung sounds are positive for a few scattered rhonchi, no wheezing no rales noted. Denies any fever or chills, denies any chest wall tenderness. Patient's PA catheter was discontinued, patient remains on IV Lasix drip at 5 mg per hour, we will transition him to oral diuretics this morning. Remains on insulin drip currently at 13 units per hour in view of steroid induced hyperglycemia, and we will transition his IV steroids to oral prednisone this morning. Chest x-ray was reviewed, and shows of component of fluid overload, although clinically patient is feeling and breathing better today. Maintenance IV for includes 0.9 at a rate of 20 ML per hour. We will switch patient Symbicort to Pulmicort and Perforomist, and continue DuoNeb. Patient's in negative fluid balance over 2400 cc over last 24 hours, and his weight is down to 135 kg from 144.3. Hemodynamically stable, in sinus mechanism with a controlled rate. We will transfer the patient out of the intensive care today to a selective care bed, with an intention further stabilizing his pulmonary status and hopefully discharge home with an outpatient referral to pulmonary hypertension clinic at that [facility] with Dr. Jacob Salazar. Objective - Vital Signs Vital signs: Vital Signs Temp 97.9 F 11/19/17 04:00 Pulse 71 11/19/17 09:00 Resp 32 H 11/19/17 09:00 BP 136/65 11/19/17 09:00 Pulse Ox 93 L 11/19/17 09:00 Intake & Output 11/18/17 11/19/1718 18:59 06:59 18:59 Intake Total 1088.215 388.310 117.663 Output Total 1879 1999 825 Balance -791.785 -1611.690 -707.337 Weight 144.3 kg 135 kg 135 kg Intake: IV 511 220 60 Sodium Chloride 0.9% 1, 460 220 60 000 ml @ 40 mls/hr IV . Q24H R[facility]RIGUEZ Rx#:[id number] pressure bag 51 Intake, IV Titration 577.215 168.310 57.663 Amount Furosemide 250 mg In 87.167 96.667 17.583 Sodium Chloride 0.9% 225 ml @ 10 MG/HR 10 mls/hr IVP .Q24H R[facility]Z Rx#: [id number] Heparin Sodium,Porcine/ 354.000 D5w Pmx 25,000 unit In Dextrose/Water 1 500ml. bag @ 7.078 UNITS/KG/HR 20 mls/hr IV .Q24H [facility]Z Rx #:[id number] Insulin Regular 100 unit 136.048 71.643 40.080 In Sodium Chloride 0.9% 100 ml @ Per Protocol IV .Q0M [facility]RIGUEZ Rx#:[id number] Output: Urine 1879 1999 825 Other: Voiding Method Indwelling Catheter Indwelling Catheter ABP, PAP, CO, CI - Last Documented Pulmonary Artery Pressure 48/22 Cardiac Output 7.7 Cardiac Index 3.0 - Exam Physical Exam: Revealed a 67-year-old white male in no distress, on nasal cannula, there has been an interval change of [place]rendon catheter removal from the right groin, the right groin is clean dry and intact, soft, with no evidence of hematoma.. Head: Atraumatic, normocephalic. HEENT:[Neck is supple.] [No neck masses.] [No thyromegaly.] [No JVD.] Chest: [Mechanical chest expansion bilaterally, diminished breath sounds at the bases, no crackles, no rhonchi, no wheezes..] Cardiac Exam: [Normal S1 and S2, no S3 gallop, no murmur.] Abdomen: [Obese, Soft, nontender, no megaly, no rebound, no guarding, normal bowel sounds.] Extremities: [No clubbing, no edema, no cyanosis.] Right groin was examined, and there is a [place]-Brendon catheter has been discontinued. Neurological Exam: [No focal neurologic deficit.] Psychiatric: Normal mood, normal affect. Lymphatics: No lymphadenopathy. - Labs CBC & Chem 7: 11/19/17 03:49 11/19/17 03:49 Labs: Abnormal Lab Results - Last 24 Hours (Table) 11/18/17 11/18/17 11/18/17 Range/Units 10:11 11:26 12:13 WBC (3.8-10.6) k/uL MCHC (31.0-37.0) g/dL RDW (11.5-15.5) % Neutrophils # (1.3-7.7) k/uL Lymphocytes # (1.0-4.8) k/uL Sodium (137-145) mmol/L Chloride (98-107) mmol/L Carbon Dioxide (22-30) mmol/L BUN (9-20) mg/dL Glucose (74-99) mg/dL POC Glucose (mg/dL) 173 H 143 H 225 H (75-99) mg/dL Calcium (8.4-10.2) mg/dL Phosphorus (2.5-4.5) mg/dL Magnesium (1.6-2.3) mg/dL 11/18/17 11/18/17 11/18/17 Range/Units 13:46 15:21 16:27 WBC (3.8-10.6) k/uL MCHC (31.0-37.0) g/dL RDW (11.5-15.5) % Neutrophils # (1.3-7.7) k/uL Lymphocytes # (1.0-4.8) k/uL Sodium (137-145) mmol/L Chloride (98-107) mmol/L Carbon Dioxide (22-30) mmol/L BUN (9-20) mg/dL Glucose (74-99) mg/dL POC Glucose (mg/dL) 243 H 216 H 272 H (75-99) mg/dL Calcium (8.4-10.2) mg/dL Phosphorus (2.5-4.5) mg/dL Magnesium (1.6-2.3) mg/dL 11/18/17 11/18/17 11/18/17 Range/Units 17:22 17:30 18:52 WBC (3.8-10.6) k/uL MCHC (31.0-37.0) g/dL RDW (11.5-15.5) % Neutrophils # (1.3-7.7) k/uL Lymphocytes # (1.0-4.8) k/uL Sodium (137-145) mmol/L Chloride (98-107) mmol/L Carbon Dioxide (22-30) mmol/L BUN (9-20) mg/dL Glucose (74-99) mg/dL POC Glucose (mg/dL) 417 H 203 H 241 H (75-99) mg/dL Calcium (8.4-10.2) mg/dL Phosphorus (2.5-4.5) mg/dL Magnesium (1.6-2.3) mg/dL 11/18/17 11/18/17 11/18/17 Range/Units 20:10 20:56 22:02 WBC (3.8-10.6) k/uL MCHC (31.0-37.0) g/dL RDW (11.5-15.5) % Neutrophils # (1.3-7.7) k/uL Lymphocytes # (1.0-4.8) k/uL Sodium (137-145) mmol/L Chloride (98-107) mmol/L Carbon Dioxide (22-30) mmol/L BUN (9-20) mg/dL Glucose (74-99) mg/dL POC Glucose (mg/dL) 254 H 204 H 223 H (75-99) mg/dL Calcium (8.4-10.2) mg/dL Phosphorus (2.5-4.5) mg/dL Magnesium (1.6-2.3) mg/dL 11/18/17 11/19/17 11/19/17 Range/Units 23:13 00:10 01:04 WBC (3.8-10.6) k/uL MCHC (31.0-37.0) g/dL RDW (11.5-15.5) % Neutrophils # (1.3-7.7) k/uL Lymphocytes # (1.0-4.8) k/uL Sodium (137-145) mmol/L Chloride (98-107) mmol/L Carbon Dioxide (22-30) mmol/L BUN (9-20) mg/dL Glucose (74-99) mg/dL POC Glucose (mg/dL) 159 H 158 H 128 H (75-99) mg/dL Calcium (8.4-10.2) mg/dL Phosphorus (2.5-4.5) mg/dL Magnesium (1.6-2.3) mg/dL 11/19/17 11/19/17 11/19/17 Range/Units 02:00 02:54 03:49 WBC 16.2 H (3.8-10.6) k/uL MCHC 29.9 L (31.0-37.0) g/dL RDW 17.3 H (11.5-15.5) % Neutrophils # 15.2 H (1.3-7.7) k/uL Lymphocytes # 0.6 L (1.0-4.8) k/uL Sodium (137-145) mmol/L Chloride (98-107) mmol/L Carbon Dioxide (22-30) mmol/L BUN (9-20) mg/dL Glucose (74-99) mg/dL POC Glucose (mg/dL) 150 H 165 H (75-99) mg/dL Calcium (8.4-10.2) mg/dL Phosphorus (2.5-4.5) mg/dL Magnesium (1.6-2.3) mg/dL 11/19/17 11/19/17 11/19/17 Range/Units 03:49 03:52 04:52 WBC (3.8-10.6) k/uL MCHC (31.0-37.0) g/dL RDW (11.5-15.5) % Neutrophils # (1.3-7.7) k/uL Lymphocytes # (1.0-4.8) k/uL Sodium 134 L (137-145) mmol/L Chloride 89 L (98-107) mmol/L Carbon Dioxide 31 H (22-30) mmol/L BUN 52 H (9-20) mg/dL Glucose 155 H (74-99) mg/dL POC Glucose (mg/dL) 160 H 155 H (75-99) mg/dL Calcium 8.2 L (8.4-10.2) mg/dL Phosphorus 5.5 H (2.5-4.5) mg/dL Magnesium 2.4 H (1.6-2.3) mg/dL 11/19/17 11/19/17 11/19/17 Range/Units 06:03 07:07 08:12 WBC (3.8-10.6) k/uL MCHC (31.0-37.0) g/dL RDW (11.5-15.5) % Neutrophils # (1.3-7.7) k/uL Lymphocytes # (1.0-4.8) k/uL Sodium (137-145) mmol/L Chloride (98-107) mmol/L Carbon Dioxide (22-30) mmol/L BUN (9-20) mg/dL Glucose (74-99) mg/dL POC Glucose (mg/dL) 147 H 147 H 234 H (75-99) mg/dL Calcium (8.4-10.2) mg/dL Phosphorus (2.5-4.5) mg/dL Magnesium (1.6-2.3) mg/dL 11/19/17 Range/Units 09:12 WBC (3.8-10.6) k/uL MCHC (31.0-37.0) g/dL RDW (11.5-15.5) % Neutrophils # (1.3-7.7) k/uL Lymphocytes # (1.0-4.8) k/uL Sodium (137-145) mmol/L Chloride (98-107) mmol/L Carbon Dioxide (22-30) mmol/L BUN (9-20) mg/dL Glucose (74-99) mg/dL POC Glucose (mg/dL) 221 H (75-99) mg/dL Calcium (8.4-10.2) mg/dL Phosphorus (2.5-4.5) mg/dL Magnesium (1.6-2.3) mg/dL Assessment and Plan Plan: Assessment: 1 chronic shortness of breath, multifactorial, secondary to severe COPD, secondary pulmonary hypertension, and acute on chronic diastolic congestive heart failure. And secondary to obesity/deconditioning. 2 secondary pulmonary hypertension secondary to COPD, obstructive sleep apnea syndrome. 3 paroxysmal atrial fibrillation, presently under control. 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 5 coronary artery disease, previous CABG. 6 type 2 diabetes with diabetic peripheral neuropathy 7 hypertension 8 restless leg syndrome 9 severe COPD, FEV1 is in the range of 41%. Plan: Patient's PA catheter has been discontinued per cardiology. He reports improvement with his dyspnea, maintaining negative fluid balance, his weight is trending down. We will discontinue his Lasix infusion, we will restart his home dose of Bumex 1 mg by mouth once daily, transition IV Solu-Medrol to oral prednisone. Switch Symbicort 2 nebulized Pulmicort and Perforomist. Patient is stable to transfer out of intensive care to [facility] care bed today. Anticipate further improvement, and stabilization of his pulmonary status. Patient will be referred on an outpatient basis to the pulmonary hypertension clinic at [facility]. I performed a history & physical examination of the patient and discussed their management with my nurse practitioner, Ketty Loja. I reviewed the nurse practitioner's note and agree with the documented findings and plan of care. Lung sounds are positive for a few scattered rhonchi. The findings and the impression was discussed with the patient. I attest to the documentation by the nurse practitioner. Critical care time is over 30 minutes Time with Patient: Greater than 30
[2017-11-19 10:26] LABS: Glucose,Whole Blood 187 mg/dL (75-99)
--- NOTE | 2017-11-19 10:50 | P.PN ---
Subjective Progress Note Date: 11/19/17 This 67-year-old gentleman was admitted by Dr. VC Hamlin for evaluation and treatment of pulmonary hypertension and chronic CHF. He is also concern for the presence of restrictive cardiomyopathy. Patient was aggressively treated with IV Lasix and nitroglycerin. His pulmonary pressures have improved to the range of 40/18. Patient is clinically feeling better and seemed to be less short of breath. She [place]-Brendon catheter was removed. Yesterday. We will stop the IV Lasix drip. Patient is having good urinary output. We'll start him on by mouth Lasix. Steroids also being tapered off. Patient to be transferred to telemetry unit. Objective - Vital Signs Vital signs: Vital Signs Temp 97.9 F 11/19/17 04:00 Pulse 65 11/19/17 10:00 Resp 20 11/19/17 10:00 BP 104/55 11/19/17 10:00 Pulse Ox 93 L 11/19/17 10:00 Intake & Output 11/18/17 11/19/17 11/19/17 18:59 06:59 18:59 Intake Total 1088.215 388.310 136.096 Output Total 1880 1999 825 Balance -791.785 -1611.690 -688.904 Weight 144.3 kg 135 kg 135 kg Intake: IV 511 220 60 Sodium Chloride 0.9% 1, 460 220 60 000 ml @ 40 mls/hr IV . Q24H [facility]Z Rx#:[id number] pressure bag 51 Intake, IV Titration 577.215 168.310 76.096 Amount Furosemide 250 mg In 87.167 96.667 17.583 Sodium Chloride 0.9% 225 ml @ 10 MG/HR 10 mls/hr IVP .Q24H R[facility]RIGUEZ Rx#: [id number] Heparin Sodium,Porcine/ 354.000 D5w Pmx 25,000 unit In Dextrose/Water 1 500ml. bag @ 7.078 UNITS/KG/HR 20 mls/hr IV .Q24H RODRIGUEZ Rx #:[id number] Insulin Regular 100 unit 136.048 71.643 58.513 In Sodium Chloride 0.9% 100 ml @ Per Protocol IV .Q0M RODRIGUEZ Rx#:[id number] Output: Urine 1880 1999 825 Other: Voiding Method Indwelling Catheter Indwelling Catheter Indwelling Catheter ABP, PAP, CO, CI - Last Documented Pulmonary Artery Pressure 48/22 Cardiac Output 7.7 Cardiac Index 3.0 - Exam GENERAL EXAM: Patient is alert and oriented and doesn't appear to be in any acute distress HEENT: Normocephalic. Normal reaction of pupils, equal size, normal range of extraocular motion. No erythema or exudates in the throat. NECK: No masses, no nuchal rigidity. CHEST: No chest wall deformity. LUNGS: Equal air entry with no crackles or wheeze. HEART: S1 and S2 normal with no audible mumurs or gallops. Regular rhythm, femorals equal on both sides.. ABDOMEN: No hepatosplenomegaly, normal bowel sounds, no guarding or rigidity. SKIN: No rashes CENTRAL NERVOUS SYSTEM: No focal deficits. EXTREMITIES: Mild edema - Labs CBC & Chem 7: 11/19/17 03:49 11/19/17 03:49 Labs: Abnormal Lab Results - Last 24 Hours (Table) 11/18/17 11/18/17 11/18/17 Range/Units 11:26 12:13 13:46 WBC (3.8-10.6) k/uL MCHC (31.0-37.0) g/dL RDW (11.5-15.5) % Neutrophils # (1.3-7.7) k/uL Lymphocytes # (1.0-4.8) k/uL Sodium (137-145) mmol/L Chloride (98-107) mmol/L Carbon Dioxide (22-30) mmol/L BUN (9-20) mg/dL Glucose (74-99) mg/dL POC Glucose (mg/dL) 143 H 225 H 243 H (75-99) mg/dL Calcium (8.4-10.2) mg/dL Phosphorus (2.5-4.5) mg/dL Magnesium (1.6-2.3) mg/dL 11/18/17 11/18/17 11/18/17 Range/Units 15:21 16:27 17:22 WBC (3.8-10.6) k/uL MCHC (31.0-37.0) g/dL RDW (11.5-15.5) % Neutrophils # (1.3-7.7) k/uL Lymphocytes # (1.0-4.8) k/uL Sodium (137-145) mmol/L Chloride (98-107) mmol/L Carbon Dioxide (22-30) mmol/L BUN (9-20) mg/dL Glucose (74-99) mg/dL POC Glucose (mg/dL) 216 H 272 H 417 H (75-99) mg/dL Calcium (8.4-10.2) mg/dL Phosphorus (2.5-4.5) mg/dL Magnesium (1.6-2.3) mg/dL 11/18/17 11/18/17 11/18/17 Range/Units 17:30 18:52 20:10 WBC (3.8-10.6) k/uL MCHC (31.0-37.0) g/dL RDW (11.5-15.5) % Neutrophils # (1.3-7.7) k/uL Lymphocytes # (1.0-4.8) k/uL Sodium (137-145) mmol/L Chloride (98-107) mmol/L Carbon Dioxide (22-30) mmol/L BUN (9-20) mg/dL Glucose (74-99) mg/dL POC Glucose (mg/dL) 203 H 241 H 254 H (75-99) mg/dL Calcium (8.4-10.2) mg/dL Phosphorus (2.5-4.5) mg/dL Magnesium (1.6-2.3) mg/dL 11/18/17 11/18/17 11/18/17 Range/Units 20:56 22:02 23:13 WBC (3.8-10.6) k/uL MCHC (31.0-37.0) g/dL RDW (11.5-15.5) % Neutrophils # (1.3-7.7) k/uL Lymphocytes # (1.0-4.8) k/uL Sodium (137-145) mmol/L Chloride (98-107) mmol/L Carbon Dioxide (22-30) mmol/L BUN (9-20) mg/dL Glucose (74-99) mg/dL POC Glucose (mg/dL) 204 H 223 H 159 H (75-99) mg/dL Calcium (8.4-10.2) mg/dL Phosphorus (2.5-4.5) mg/dL Magnesium (1.6-2.3) mg/dL 11/19/17 11/19/17 11/19/17 Range/Units 00:10 01:04 02:00 WBC (3.8-10.6) k/uL MCHC (31.0-37.0) g/dL RDW (11.5-15.5) % Neutrophils # (1.3-7.7) k/uL Lymphocytes # (1.0-4.8) k/uL Sodium (137-145) mmol/L Chloride (98-107) mmol/L Carbon Dioxide (22-30) mmol/L BUN (9-20) mg/dL Glucose (74-99) mg/dL POC Glucose (mg/dL) 158 H 128 H 150 H (75-99) mg/dL Calcium (8.4-10.2) mg/dL Phosphorus (2.5-4.5) mg/dL Magnesium (1.6-2.3) mg/dL 11/19/17 11/19/17 11/19/17 Range/Units 02:54 03:49 03:49 WBC 16.2 H (3.8-10.6) k/uL MCHC 29.9 L (31.0-37.0) g/dL RDW 17.3 H (11.5-15.5) % Neutrophils # 15.2 H (1.3-7.7) k/uL Lymphocytes # 0.6 L (1.0-4.8) k/uL Sodium 134 L (137-145) mmol/L Chloride 89 L (98-107) mmol/L Carbon Dioxide 31 H (22-30) mmol/L BUN 52 H (9-20) mg/dL Glucose 155 H (74-99) mg/dL POC Glucose (mg/dL) 165 H (75-99) mg/dL Calcium 8.2 L (8.4-10.2) mg/dL Phosphorus 5.5 H (2.5-4.5) mg/dL Magnesium 2.4 H (1.6-2.3) mg/dL 11/19/17 11/19/17 11/19/17 Range/Units 03:52 04:52 06:03 WBC (3.8-10.6) k/uL MCHC (31.0-37.0) g/dL RDW (11.5-15.5) % Neutrophils # (1.3-7.7) k/uL Lymphocytes # (1.0-4.8) k/uL Sodium (137-145) mmol/L Chloride (98-107) mmol/L Carbon Dioxide (22-30) mmol/L BUN (9-20) mg/dL Glucose (74-99) mg/dL POC Glucose (mg/dL) 160 H 155 H 147 H (75-99) mg/dL Calcium (8.4-10.2) mg/dL Phosphorus (2.5-4.5) mg/dL Magnesium (1.6-2.3) mg/dL 11/19/17 11/19/17 11/19/17 Range/Units 07:07 08:12 09:12 WBC (3.8-10.6) k/uL MCHC (31.0-37.0) g/dL RDW (11.5-15.5) % Neutrophils # (1.3-7.7) k/uL Lymphocytes # (1.0-4.8) k/uL Sodium (137-145) mmol/L Chloride (98-107) mmol/L Carbon Dioxide (22-30) mmol/L BUN (9-20) mg/dL Glucose (74-99) mg/dL POC Glucose (mg/dL) 147 H 234 H 221 H (75-99) mg/dL Calcium (8.4-10.2) mg/dL Phosphorus (2.5-4.5) mg/dL Magnesium (1.6-2.3) mg/dL 11/19/17 Range/Units 10:15 WBC (3.8-10.6) k/uL MCHC (31.0-37.0) g/dL RDW (11.5-15.5) % Neutrophils # (1.3-7.7) k/uL Lymphocytes # (1.0-4.8) k/uL Sodium (137-145) mmol/L Chloride (98-107) mmol/L Carbon Dioxide (22-30) mmol/L BUN (9-20) mg/dL Glucose (74-99) mg/dL POC Glucose (mg/dL) 187 H (75-99) mg/dL Calcium (8.4-10.2) mg/dL Phosphorus (2.5-4.5) mg/dL Magnesium (1.6-2.3) mg/dL Assessment and Plan (1) Pulmonary hypertension Current Visit: Yes Status: Acute Code(s): I27.20 - PULMONARY HYPERTENSION, UNSPECIFIED SNOMED Code(s): 04535288 (2) A-fib Current Visit: No Status: Acute Code(s): I48.91 - UNSPECIFIED ATRIAL FIBRILLATION SNOMED Code(s): 30281267 (3) Carcinoid tumor of small intestine Current Visit: No Status: Acute Code(s): D3A.019 - BENIGN CARCINOID TUMOR OF THE SMALL INTESTINE, UNSP PORTION SNOMED Code(s): 583680206 Plan: Patient is clinically doing well. IV Lasix to be discontinued. Patient to be transferred to telemetry unit. Increase activity as tolerated
[2017-11-19 11:08] LABS: Glucose,Whole Blood 122 mg/dL (75-99)
[2017-11-19 12:02] LABS: Glucose,Whole Blood 127 mg/dL (75-99)
--- NOTE | 2017-11-19 12:08 | P.PN ---
Subjective Progress Note Date: 11/19/17 Principal diagnosis: Severe dyspnea and shortness of breath, hypoxia, pulmonary hypertension, COPD, mild coronary artery disease, diabetes, hypertension This is 67 years old male with frequent hospitalization presents to the cardiac catheterization lab for elective cardiac catheterization and was found to have elevated pulmonary artery pressure with elevated wedge pressure and was admitted to the intensive care unit based on accountant assistant recommendation to start Lasix drip at 5 mg per hour and nitroglycerin drip was started later on. Patient stated that he is been declining steadily over the last month to the point where he was not able to finish his statement winded running a composition believes that he gained at least 30 pounds in all related to fluid at the time he continue to take his Lasix twice daily with no results as it used to be. Patient eats a regular diet and to watch his salt intake. Patient is diabetic and takes metformin and invokana. Patient is noncompliant with his diet and have morbid obesity. Patient currently reported improvement in his shortness breath and thinks that he lost significant amount of weight. Patient is denying chest pain, nausea, vomiting, dumping, dizziness, lightheadedness or dysuria Despite the controversy with diuretics versus pulmonary treatment patient is slightly but better today we'll continue diuretics switch to oral patient be transfer out of the ICU for possible discharge home tomorrow. Objective - Vital Signs Vital signs: Vital Signs Temp 97.9 F 11/19/17 04:00 Pulse 63 11/19/17 11:00 Resp 24 11/19/17 11:36 BP 106/52 11/19/17 11:00 Pulse Ox 90 L 11/19/17 11:00 Intake & Output 11/18/17 11/19/17 11/19/17 18:59 06:59 18:59 Intake Total 1088.215 388.310 184.058 Output Total 1880 2000 950 Balance -791.785 -1611.690 -765.942 Weight 144.3 kg 135 kg 135 kg Intake: IV 511 220 100 Sodium Chloride 0.9% 1, 460 220 100 000 ml @ 40 mls/hr IV . Q24H [facility] Rx#:[id number] pressure bag 51 Intake, IV Titration 577.215 168.310 84.058 Amount Furosemide 250 mg In 87.167 96.667 17.583 Sodium Chloride 0.9% 225 ml @ 10 MG/HR 10 mls/hr IVP .Q24H [facility] Rx#: [id number] Heparin Sodium,Porcine/ 354.000 D5w Pmx 25,000 unit In Dextrose/Water 1 500ml. bag @ 7.078 UNITS/KG/HR 20 mls/hr IV .Q24H [facility] Rx #:[id number] Insulin Regular 100 unit 136.048 71.643 66.475 In Sodium Chloride 0.9% 100 ml @ Per Protocol IV .Q0M [facility] Rx#:[id number] Output: Urine 1880 2000 950 Other: Voiding Method Indwelling Catheter Indwelling Catheter Indwelling Catheter ABP, PAP, CO, CI - Last Documented Pulmonary Artery Pressure 48/22 Cardiac Output 7.7 Cardiac Index 3.0 - Constitutional General appearance: Present: cooperative, disheveled, mild distress, obese. Absent: average body habitus, morbidly obese, no acute distress, severe distress , thin - EENT Eyes: Present: normal appearance. Absent: abnormal pupil, anicteric sclerae, disc margins sharp, edentulous, EOMI, PERRLA, fundus normal, photophobia, dentition normal, poor dentition, ptosis, scleral icterus ENT: Present: hard of hearing, pharyngeal erythema. Absent: hearing grossly normal, NA/AT, normal oropharynx, other, thrush, tonsillar exudates, tonsillar swelling Ears: bilateral: normal - Neck Neck: Present: normal ROM. Absent: lymphadenopathy, other, rigidity, stridor, thyromegaly Carotids: bilateral: upstroke normal, upstroke delayed Thyroid: bilateral: normal size - Respiratory Respiratory: bilateral: diminished, dullness, rales, rhonchi, wheezing - Cardiovascular Rhythm: regular Heart sounds: normal: S1, S2 Abnormal Heart Sounds: Present: systolic murmur, S3 Gallop. Absent: diastolic murmur, rub, S4 Gallop, click, other - Gastrointestinal General gastrointestinal: Present: distended, normal bowel sounds, soft. Absent : absent bowel sounds, decreased bowel sounds, hepatomegaly, hyperactive bowel sounds, organomegaly, rigid, scaphoid, splenomegaly, tenderness, umbilical hernia, ventral hernia - Integumentary Integumentary Comment(s): Quite bed edema of the lower extremity with no ulcer or open area. Integumentary: Present: decreased turgor, pale, rash. Absent: calor, cellulitis , cyanotic, flushed, jaundiced, normal, normal turgor, ulcer - Neurologic Neurologic: Present: CNII-XII intact - Musculoskeletal Musculoskeletal: Present: gait normal, generalized weakness, strength equal bilaterally. Absent: right sided weakness, left sided weakness - Psychiatric Psychiatric: Present: A&O x's 3, appropriate affect. Absent: intact judgment & insight - Labs CBC & Chem 7: 11/19/17 03:49 11/19/17 03:49 Labs: Abnormal Lab Results - Last 24 Hours (Table) 11/18/17 11/18/17 11/18/17 Range/Units 12:13 13:46 15:21 WBC (3.8-10.6) k/uL MCHC (31.0-37.0) g/dL RDW (11.5-15.5) % Neutrophils # (1.3-7.7) k/uL Lymphocytes # (1.0-4.8) k/uL Sodium (137-145) mmol/L Chloride (98-107) mmol/L Carbon Dioxide (22-30) mmol/L BUN (9-20) mg/dL Glucose (74-99) mg/dL POC Glucose (mg/dL) 225 H 243 H 216 H (75-99) mg/dL Calcium (8.4-10.2) mg/dL Phosphorus (2.5-4.5) mg/dL Magnesium (1.6-2.3) mg/dL 11/18/17 11/18/17 11/18/17 Range/Units 16:27 17:22 17:30 WBC (3.8-10.6) k/uL MCHC (31.0-37.0) g/dL RDW (11.5-15.5) % Neutrophils # (1.3-7.7) k/uL Lymphocytes # (1.0-4.8) k/uL Sodium (137-145) mmol/L Chloride (98-107) mmol/L Carbon Dioxide (22-30) mmol/L BUN (9-20) mg/dL Glucose (74-99) mg/dL POC Glucose (mg/dL) 272 H 417 H 203 H (75-99) mg/dL Calcium (8.4-10.2) mg/dL Phosphorus (2.5-4.5) mg/dL Magnesium (1.6-2.3) mg/dL 11/18/17 11/18/17 11/18/17 Range/Units 18:52 20:10 20:56 WBC (3.8-10.6) k/uL MCHC (31.0-37.0) g/dL RDW (11.5-15.5) % Neutrophils # (1.3-7.7) k/uL Lymphocytes # (1.0-4.8) k/uL Sodium (137-145) mmol/L Chloride (98-107) mmol/L Carbon Dioxide (22-30) mmol/L BUN (9-20) mg/dL Glucose (74-99) mg/dL POC Glucose (mg/dL) 241 H 254 H 204 H (75-99) mg/dL Calcium (8.4-10.2) mg/dL Phosphorus (2.5-4.5) mg/dL Magnesium (1.6-2.3) mg/dL 11/18/17 11/18/17 11/19/17 Range/Units 22:02 23:13 00:10 WBC (3.8-10.6) k/uL MCHC (31.0-37.0) g/dL RDW (11.5-15.5) % Neutrophils # (1.3-7.7) k/uL Lymphocytes # (1.0-4.8) k/uL Sodium (137-145) mmol/L Chloride (98-107) mmol/L Carbon Dioxide (22-30) mmol/L BUN (9-20) mg/dL Glucose (74-99) mg/dL POC Glucose (mg/dL) 223 H 159 H 158 H (75-99) mg/dL Calcium (8.4-10.2) mg/dL Phosphorus (2.5-4.5) mg/dL Magnesium (1.6-2.3) mg/dL 11/19/17 11/19/17 11/19/17 Range/Units 01:04 02:00 02:54 WBC (3.8-10.6) k/uL MCHC (31.0-37.0) g/dL RDW (11.5-15.5) % Neutrophils # (1.3-7.7) k/uL Lymphocytes # (1.0-4.8) k/uL Sodium (137-145) mmol/L Chloride (98-107) mmol/L Carbon Dioxide (22-30) mmol/L BUN (9-20) mg/dL Glucose (74-99) mg/dL POC Glucose (mg/dL) 128 H 150 H 165 H (75-99) mg/dL Calcium (8.4-10.2) mg/dL Phosphorus (2.5-4.5) mg/dL Magnesium (1.6-2.3) mg/dL 11/19/17 11/19/17 11/19/17 Range/Units 03:49 03:49 03:52 WBC 16.2 H (3.8-10.6) k/uL MCHC 29.9 L (31.0-37.0) g/dL RDW 17.3 H (11.5-15.5) % Neutrophils # 15.2 H (1.3-7.7) k/uL Lymphocytes # 0.6 L (1.0-4.8) k/uL Sodium 134 L (137-145) mmol/L Chloride 89 L (98-107) mmol/L Carbon Dioxide 31 H (22-30) mmol/L BUN 52 H (9-20) mg/dL Glucose 155 H (74-99) mg/dL POC Glucose (mg/dL) 160 H (75-99) mg/dL Calcium 8.2 L (8.4-10.2) mg/dL Phosphorus 5.5 H (2.5-4.5) mg/dL Magnesium 2.4 H (1.6-2.3) mg/dL 11/19/17 11/19/17 11/19/17 Range/Units 04:52 06:03 07:07 WBC (3.8-10.6) k/uL MCHC (31.0-37.0) g/dL RDW (11.5-15.5) % Neutrophils # (1.3-7.7) k/uL Lymphocytes # (1.0-4.8) k/uL Sodium (137-145) mmol/L Chloride (98-107) mmol/L Carbon Dioxide (22-30) mmol/L BUN (9-20) mg/dL Glucose (74-99) mg/dL POC Glucose (mg/dL) 155 H 147 H 147 H (75-99) mg/dL Calcium (8.4-10.2) mg/dL Phosphorus (2.5-4.5) mg/dL Magnesium (1.6-2.3) mg/dL 11/19/17 11/19/17 11/19/17 Range/Units 08:12 09:12 10:15 WBC (3.8-10.6) k/uL MCHC (31.0-37.0) g/dL RDW (11.5-15.5) % Neutrophils # (1.3-7.7) k/uL Lymphocytes # (1.0-4.8) k/uL Sodium (137-145) mmol/L Chloride (98-107) mmol/L Carbon Dioxide (22-30) mmol/L BUN (9-20) mg/dL Glucose (74-99) mg/dL POC Glucose (mg/dL) 234 H 221 H 187 H (75-99) mg/dL Calcium (8.4-10.2) mg/dL Phosphorus (2.5-4.5) mg/dL Magnesium (1.6-2.3) mg/dL 11/19/17 Range/Units 11:04 WBC (3.8-10.6) k/uL MCHC (31.0-37.0) g/dL RDW (11.5-15.5) % Neutrophils # (1.3-7.7) k/uL Lymphocytes # (1.0-4.8) k/uL Sodium (137-145) mmol/L Chloride (98-107) mmol/L Carbon Dioxide (22-30) mmol/L BUN (9-20) mg/dL Glucose (74-99) mg/dL POC Glucose (mg/dL) 122 H (75-99) mg/dL Calcium (8.4-10.2) mg/dL Phosphorus (2.5-4.5) mg/dL Magnesium (1.6-2.3) mg/dL Assessment and Plan Plan: 1. Acute on chronic respiratory failure with hypoxia: Still on O2 continue updraft treatment continue to treat pulmonary hypertension, patient seen pulmonary regular basis. 2. Dyspnea multifactorial in nature. Post heart cath with no major findings require any angioplasty that known to have pulmonary hypertension seen pulmonary on medical management. 3. Acute diastolic heart failure exacerbation with right-sided heart failure, pulmonary hypertension. 4. Morbid obesity with obstructive sleep apnea, has refused to use CPAP seen Dr. Valdez and apparently and he is on other management. 5. Diabetes mellitus. Blood sugar still elevated we'll start him on Levemir 10 units at bedtime try to wean him off NovoLog drip. 6. Hypertension. Stable on losartan and metoprolol. 7. Hyperlipidemia. Not on any medication currently. 8. A. fib with RVR: Pulse rates under control on Tikosyn still on Xarelto 20 mg a day. GI prophylaxis: Remain on Pepcid. CODE STATUS: Full code.
[2017-11-19] MEDS: INSULIN ASPART 100 UNIT/ML 1 ML 10 ML VIAL SQ SCH ×5 (13:19→20:48)
[2017-11-19 17:31] LABS: Glucose,Whole Blood 336 mg/dL (75-99)
[2017-11-19] MEDS: FORMOTEROL FUMARATE 20 MCG/2 ML NEBU INHALATION SCH (18:58)
[2017-11-19] MEDS: BUDESONIDE 1 MG/2 ML NEBU INHALATION SCH (18:58)
[2017-11-19 20:27] LABS: Glucose,Whole Blood >600 mg/dL (75-99)
[2017-11-19 20:28] LABS: Glucose,Whole Blood 296 mg/dL (75-99)
[2017-11-19] MEDS: BUMETANIDE 1 MG TAB PO SCH (20:41)
[2017-11-19] MEDS: INSULIN DETEMIR 100 UNIT/ML 10 ML VIAL SQ SCH (20:48)
[2017-11-20 05:16] LABS: Anisocytosis Slight; Basophils % (A) 0 %; Eosinophils % (A) 0 %; HCT 43.6 % (39.0-53.0); HGB 13.7 gm/dL (13.0-17.5); Hypochromasia Slight; Lymphocytes # (A) 1.1 k/uL (1.0-4.8); Lymphocytes % (A) 8 %; MCHC 31.5 g/dL (31.0-37.0); Mean Platelet Volume 7.7; Monocytes # (A) 0.9 k/uL (0-1.0); Monocytes % (A) 7 %; Neutrophils # (A) 11.1 k/uL (1.3-7.7); Neutrophils % (A) 84 %; Platelet Count 215 k/uL (150-450); RDW 17.3 % (11.5-15.5); WBC 13.2 k/uL (3.8-10.6)
[2017-11-20 05:49] LABS: Albumin 3.6 g/dL (3.5-5.0); Magnesium 2.2 mg/dL (1.6-2.3); Phosphorus 4.9 mg/dL (2.5-4.5); Potassium 4.2 mmol/L (3.5-5.1); Total Bilirubin 0.3 mg/dL (0.2-1.3); Total Protein 5.8 g/dL (6.3-8.2)
[2017-11-20] MEDS: DOFETILIDE 500 MCG CAP PO SCH (06:49)
--- NOTE | 2017-11-20 07:43 | XR ---
EXAMINATION TYPE: XR chest 1V portable DATE OF EXAM: 11/20/2017 COMPARISON: Prior chest x-ray 11/19/2017 HISTORY: PA pressures, abnormal chest x-ray TECHNIQUE: Single frontal view of the chest is obtained. FINDINGS: There is no significant interval change. IMPRESSION: Stable exam. Cardiomegaly. Correlate for possible mild interstitial edema. There may be basilar atelectasis. Follow-up.
[2017-11-20] MEDS: BUDESONIDE 1 MG/2 ML NEBU INHALATION SCH ×2 (07:47→20:06)
[2017-11-20] MEDS: IPRATROPIUM-ALBUTEROL 3 ML NEB INHALATION SCH ×4 (07:47→20:06)
[2017-11-20] MEDS: FORMOTEROL FUMARATE 20 MCG/2 ML NEBU INHALATION SCH ×2 (07:47→20:06)
--- NOTE | 2017-11-20 07:48 | P.PN ---
Subjective Progress Note Date: 11/20/17 Principal diagnosis: Pulmonary hypertension Progress note dated 11/20/2017 The patient is again seen on November 20. He remains in the intensive care unit. The patient's on O2 4 L by nasal cannula and he is not receiving any IV fluids. The patient is very stable can be transferred out to the floor. I believe he should go to the general medical floor with telemetry. He no reason for him to go to [address] [place] [address]. The patient's pretty much almost at baseline in regards to his COPD. He denies any significant shortness of breath at this time. Denies any cough wheezing chest congestion phlegm production or coughing up of any blood. Earlier in his hospitalization, here in the ICU, he had a [place]Brendon catheter placed. IV nitroglycerin was apparently used to try to lower his pulmonary artery pressure without success. Subsequently discontinued. The patient will be sent to [facility] to see if pulmonary hypertension specialist there. The patient does have secondary pulmonary hypertension, likely secondary to his underlying severe COPD. Objective - Vital Signs Vital signs: Vital Signs Temp 98.4 F 11/20/17 04:24 Pulse 67 11/20/17 04:24 Resp 22 11/20/17 04:24 BP 110/45 11/20/17 04:24 Pulse Ox 95 11/20/17 04:24 Intake & Output 11/19/17 11/20/17 11/20/17 18:59 06:59 18:59 Intake Total 184.058 240 Output Total 1850 400 Balance -1665.942 -160 Weight 140.1 kg 139 kg Intake: IV 100 Sodium Chloride 0.9% 1, 100 000 ml @ 40 mls/hr IV . Q24H [facility] Rx#:[id number] Intake, IV Titration 84.058 Amount Furosemide 250 mg In 17.583 Sodium Chloride 0.9% 225 ml @ 10 MG/HR 10 mls/hr IVP .Q24H [facility] Rx#: [id number] Insulin Regular 100 unit 66.475 In Sodium Chloride 0.9% 100 ml @ Per Protocol IV .Q0M [facility] Rx#:[id number] Oral 240 Output: Urine 1850 400 Other: Voiding Method Toilet Toilet Urinal Urinal ABP, PAP, CO, CI - Last Documented Pulmonary Artery Pressure Cardiac Output 7.7 Cardiac Index 3.0 - Exam Physical Exam: Revealed a 67-year-old white male in no distress, on nasal cannula, there has been an interval change of [place]rendon catheter removal from the right groin, the right groin is clean dry and intact, soft, with no evidence of hematoma.. Head: Atraumatic, normocephalic. HEENT:[Neck is supple.] [No neck masses.] [No thyromegaly.] [No JVD.] Chest: [Mechanical chest expansion bilaterally, diminished breath sounds at the bases, no crackles, no rhonchi, no wheezes..] Cardiac Exam: [Normal S1 and S2, no S3 gallop, no murmur.] Abdomen: [Obese, Soft, nontender, no megaly, no rebound, no guarding, normal bowel sounds.] Extremities: [No clubbing, no edema, no cyanosis.] Right groin was examined, and there is a [place]rend[place] catheter has been discontinued. Neurological Exam: [No focal neurologic deficit.] Psychiatric: Normal mood, normal affect. Lymphatics: No lymphadenopathy. - Labs CBC & Chem 7: 11/20/17 04:19 11/20/17 04:19 Labs: Abnormal Lab Results - Last 24 Hours (Table) 11/19/17 11/19/17 11/19/17 Range/Units 08:12 09:12 10:15 WBC (3.8-10.6) k/uL RDW (11.5-15.5) % Neutrophils # (1.3-7.7) k/uL Chloride (98-107) mmol/L Carbon Dioxide (22-30) mmol/L BUN (9-20) mg/dL Glucose (74-99) mg/dL POC Glucose (mg/dL) 234 H 221 H 187 H (75-99) mg/dL Phosphorus (2.5-4.5) mg/dL AST (17-59) U/L ALT (21-72) U/L Total Protein (6.3-8.2) g/dL 11/19/17 11/19/17 11/19/17 Range/Units 11:04 12:00 17:28 WBC (3.8-10.6) k/uL RDW (11.5-15.5) % Neutrophils # (1.3-7.7) k/uL Chloride (98-107) mmol/L Carbon Dioxide (22-30) mmol/L BUN (9-20) mg/dL Glucose (74-99) mg/dL POC Glucose (mg/dL) 122 H 127 H 336 H (75-99) mg/dL Phosphorus (2.5-4.5) mg/dL AST (17-59) U/L ALT (21-72) U/L Total Protein (6.3-8.2) g/dL 11/19/17 11/19/17 11/20/17 Range/Units 20:25 20:26 04:19 WBC 13.2 H (3.8-10.6) k/uL RDW 17.3 H (11.5-15.5) % Neutrophils # 11.1 H (1.3-7.7) k/uL Chloride (98-107) mmol/L Carbon Dioxide (22-30) mmol/L BUN (9-20) mg/dL Glucose (74-99) mg/dL POC Glucose (mg/dL) >600 H 296 H (75-99) mg/dL Phosphorus (2.5-4.5) mg/dL AST (17-59) U/L ALT (21-72) U/L Total Protein (6.3-8.2) g/dL 11/20/17 Range/Units 04:19 WBC (3.8-10.6) k/uL RDW (11.5-15.5) % Neutrophils # (1.3-7.7) k/uL Chloride 88 L (98-107) mmol/L Carbon Dioxide 39 H (22-30) mmol/L BUN 53 H (9-20) mg/dL Glucose 159 H (74-99) mg/dL POC Glucose (mg/dL) (75-99) mg/dL Phosphorus 4.9 H (2.5-4.5) mg/dL AST 64 H (17-59) U/L ALT 91 H (21-72) U/L Total Protein 5.8 L (6.3-8.2) g/dL Assessment and Plan Assessment: Assessment: 1 chronic shortness of breath, multifactorial, secondary to severe COPD, secondary pulmonary hypertension, and acute on chronic diastolic congestive heart failure. And secondary to obesity/deconditioning. 2 secondary pulmonary hypertension secondary to COPD, obstructive sleep apnea syndrome. 3 paroxysmal atrial fibrillation, presently under control. 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 5 coronary artery disease, previous CABG. 6 type 2 diabetes with diabetic peripheral neuropathy 7 hypertension 8 restless leg syndrome 9 severe COPD, FEV1 is in the range of 41%. Plan: Plan dated 11/20/2017 The patient is doing relatively well. The IV Solu-Medrol has been switched to oral prednisone. In addition, we will resume the patient's home dose of Bumex at 1 mg by mouth per day. The patient is very stable. Can be transferred out to the general medical floor with telemetry. I don't believe he needs to be on 6 selective. The patient will be referred to a pulmonary hypertension specialist at [facility] once he is discharged. He'll also follow-up in our office. Additional recommendations and suggestions are forthcoming. Finally, the Pulmicort and the Perforomist or switched to Symbicort 160/4.5, 2 puffs twice a day. Critical care time 34 minutes Time with Patient: Greater than 30
[2017-11-20] MEDS: metFORMIN 500 MG TAB PO SCH ×2 (08:23→17:34)
[2017-11-20] MEDS: guaiFENesin 600 MG TABLET.ER PO SCH ×2 (08:23→20:26)
[2017-11-20] MEDS: METOPROLOL SUCCINATE (ER) 50 MG TAB.ER.24H PO SCH (08:23)
[2017-11-20] MEDS: PANTOPRAZOLE 40 MG TABLET PO SCH (08:23)
[2017-11-20] MEDS: SPIRONOLACTONE 25 MG TAB PO SCH ×2 (08:24→20:26)
[2017-11-20] MEDS: RIVAROXABAN 20 MG TAB PO SCH (08:25)
[2017-11-20 08:28] LABS: Glucose,Whole Blood 225 mg/dL (75-99)
[2017-11-20] MEDS: INSULIN ASPART 100 UNIT/ML 1 ML 10 ML VIAL SQ SCH ×7 (08:32→20:26)
[2017-11-20] MEDS ORDERED: BUMETANIDE 1 MG TAB PO SCH (09:00)
--- NOTE | 2017-11-20 09:15 | P.PN ---
Subjective Progress Note Date: 11/20/17 This 67-year-old gentleman was admitted by Dr. VC Hamlin for evaluation and treatment of pulmonary hypertension and chronic CHF. He is also concern for the presence of restrictive cardiomyopathy. Patient was aggressively treated with IV Lasix and nitroglycerin. His pulmonary pressures have improved to the range of 40/18. Patient is clinically feeling better and seemed to be less short of breath. She [place]-Brendon catheter was removed. Yesterday. We will stop the IV Lasix drip. Patient is having good urinary output. We'll start him on by mouth Lasix. Steroids also being tapered off. Patient to be transferred to telemetry unit. 11/20 2017: This patient with history of COPD and chronic diastolic CHF was admitted after cardiac catheterization. Patient was found to have moderate to severe pulmonary hypertension. He was treated with IV nitroglycerin and also IV Lasix. Patient had a good diuresis. He is also start her on Crestor. IV Lasix was discontinued yesterday. Patient was started on Bumex 2 mg by mouth twice a day. He claims his shortness of breath is slightly better. He was also on steroids which are being tapered off. Patient is going to be transferred out of intensive care unit. Coat Cutter feels that patient may benefit from having consultation for treatment of pulmonary hypertension in the [facility]. This could be arranged as an outpatient. Patient will be discharged home soon. Objective - Vital Signs Vital signs: Vital Signs Temp 98.5 F 11/20/17 08:01 Pulse 72 11/20/17 08:10 Resp 22 11/20/17 08:01 BP 103/53 11/20/17 08:01 Pulse Ox 94 L 11/20/17 08:01 Intake & Output 11/19/17 11/20/17 11/20/17 18:59 06:59 18:59 Intake Total 184.058 240 240 Output Total 1850 400 Balance -1665.942 -160 240 Weight 140.1 kg 139 kg Intake: IV 100 Sodium Chloride 0.9% 1, 100 000 ml @ 40 mls/hr IV . Q24H [facility] Rx#:[id number] Intake, IV Titration 84.058 Amount Furosemide 250 mg In 17.583 Sodium Chloride 0.9% 225 ml @ 10 MG/HR 10 mls/hr IVP .Q24H [facility] Rx#: [id number] Insulin Regular 100 unit 66.475 In Sodium Chloride 0.9% 100 ml @ Per Protocol IV .Q0M [facility] Rx#:[id number] Oral 240 240 Output: Urine 1850 400 Other: Voiding Method Toilet Toilet Urinal Urinal ABP, PAP, CO, CI - Last Documented Pulmonary Artery Pressure 48/22 Cardiac Output 7.7 Cardiac Index 3.0 - Exam GENERAL EXAM: Patient is alert and oriented and doesn't appear to be in any acute distress HEENT: Normocephalic. Normal reaction of pupils, equal size, normal range of extraocular motion. No erythema or exudates in the throat. NECK: No masses, no nuchal rigidity. CHEST: No chest wall deformity. LUNGS: Equal air entry with no crackles or wheeze. HEART: S1 and S2 normal with no audible mumurs or gallops. Regular rhythm, femorals equal on both sides.. ABDOMEN: No hepatosplenomegaly, normal bowel sounds, no guarding or rigidity. SKIN: No rashes CENTRAL NERVOUS SYSTEM: No focal deficits. EXTREMITIES: Mild edema - Labs CBC & Chem 7: 11/20/17 04:19 11/20/17 04:19 Labs: Abnormal Lab Results - Last 24 Hours (Table) 11/19/17 11/19/17 11/19/17 Range/Units 09:12 10:15 11:04 WBC (3.8-10.6) k/uL RDW (11.5-15.5) % Neutrophils # (1.3-7.7) k/uL Chloride (98-107) mmol/L Carbon Dioxide (22-30) mmol/L BUN (9-20) mg/dL Glucose (74-99) mg/dL POC Glucose (mg/dL) 221 H 187 H 122 H (75-99) mg/dL Phosphorus (2.5-4.5) mg/dL AST (17-59) U/L ALT (21-72) U/L Total Protein (6.3-8.2) g/dL 11/19/17 11/19/17 11/19/17 Range/Units 12:00 17:28 20:25 WBC (3.8-10.6) k/uL RDW (11.5-15.5) % Neutrophils # (1.3-7.7) k/uL Chloride (98-107) mmol/L Carbon Dioxide (22-30) mmol/L BUN (9-20) mg/dL Glucose (74-99) mg/dL POC Glucose (mg/dL) 127 H 336 H >600 H (75-99) mg/dL Phosphorus (2.5-4.5) mg/dL AST (17-59) U/L ALT (21-72) U/L Total Protein (6.3-8.2) g/dL 11/19/17 11/20/17 11/20/17 Range/Units 20:26 04:19 04:19 WBC 13.2 H (3.8-10.6) k/uL RDW 17.3 H (11.5-15.5) % Neutrophils # 11.1 H (1.3-7.7) k/uL Chloride 88 L (98-107) mmol/L Carbon Dioxide 39 H (22-30) mmol/L BUN 53 H (9-20) mg/dL Glucose 159 H (74-99) mg/dL POC Glucose (mg/dL) 296 H (75-99) mg/dL Phosphorus 4.9 H (2.5-4.5) mg/dL AST 64 H (17-59) U/L ALT 91 H (21-72) U/L Total Protein 5.8 L (6.3-8.2) g/dL 11/20/17 Range/Units 08:27 WBC (3.8-10.6) k/uL RDW (11.5-15.5) % Neutrophils # (1.3-7.7) k/uL Chloride (98-107) mmol/L Carbon Dioxide (22-30) mmol/L BUN (9-20) mg/dL Glucose (74-99) mg/dL POC Glucose (mg/dL) 225 H (75-99) mg/dL Phosphorus (2.5-4.5) mg/dL AST (17-59) U/L ALT (21-72) U/L Total Protein (6.3-8.2) g/dL Assessment and Plan (1) Pulmonary hypertension Current Visit: Yes Status: Acute Code(s): I27.20 - PULMONARY HYPERTENSION, UNSPECIFIED SNOMED Code(s): 14867563 (2) A-fib Current Visit: No Status: Acute Code(s): I48.91 - UNSPECIFIED ATRIAL FIBRILLATION SNOMED Code(s): 14719217 (3) Carcinoid tumor of small intestine Current Visit: No Status: Acute Code(s): D3A.019 - BENIGN CARCINOID TUMOR OF THE SMALL INTESTINE, UNSP PORTION SNOMED Code(s): 442823426 Plan: Continue current medical therapy, increase activity. I will discuss with Dr. VC Hamlin about possible discharge.
[2017-11-20] MEDS: PREGABALIN 100 MG CAP PO SCH ×2 (09:33→20:25)
[2017-11-20] MEDS: BUMETANIDE 1 MG TAB PO SCH ×2 (09:33→20:26)
[2017-11-20] MEDS: LOSARTAN 50 MG TAB PO SCH (09:33)
[2017-11-20] MEDS: NON-FORMULARY DRUG (Canagliflozin [Invokana] 100 MG) PO SCH (09:33)
[2017-11-20] MEDS: SENNOSIDES-DOCUSATE SODIUM 1 EACH TAB PO PRN (09:59)
[2017-11-20] MEDS ORDERED: MAGNESIUM SULFATE-D5W PMX 1 GM in DEXTROSE/WATER 1 100ML.BAG IVPB ONE (11:30)
[2017-11-20 11:59] LABS: Glucose,Whole Blood 98 mg/dL (75-99)
[2017-11-20 16:59] LABS: Glucose,Whole Blood 212 mg/dL (75-99)
[2017-11-20 20:07] LABS: Glucose,Whole Blood 241 mg/dL (75-99)
[2017-11-20] MEDS: INSULIN DETEMIR 100 UNIT/ML 10 ML VIAL SQ SCH (20:25)
[2017-11-20] MEDS: HYDROcodone/APAP 5-325MG 1 EACH TAB PO PRN (23:45)
[2017-11-21 04:49] VITALS: TEMP 97.9
[2017-11-21 04:54] LABS: Anisocytosis Slight; Basophils % (A) 0 %; Eosinophils # (A) 0.2 k/uL (0-0.7); Eosinophils % (A) 2 %; HCT 45.7 % (39.0-53.0); HGB 14.5 gm/dL (13.0-17.5); Hypochromasia Slight; Lymphocytes # (A) 1.8 k/uL (1.0-4.8); Lymphocytes % (A) 21 %; MCH 28.3 pg (25.0-35.0); MCHC 31.8 g/dL (31.0-37.0); MCV 89.2 fL (80.0-100.0); Mean Platelet Volume 7.6; Monocytes # (A) 0.7 k/uL (0-1.0); Monocytes % (A) 8 %; Neutrophils # (A) 5.7 k/uL (1.3-7.7); Neutrophils % (A) 66 %; Platelet Count 219 k/uL (150-450); RBC 5.12 m/uL (4.30-5.90); RDW 17.1 % (11.5-15.5); WBC 8.6 k/uL (3.8-10.6)
[2017-11-21 05:03] LABS: Magnesium 1.9 mg/dL (1.6-2.3); Phosphorus 5.1 mg/dL (2.5-4.5); Potassium 4.4 mmol/L (3.5-5.1)
[2017-11-21 07:09] LABS: Glucose,Whole Blood 155 mg/dL (75-99)
[2017-11-21] MEDS: FORMOTEROL FUMARATE 20 MCG/2 ML NEBU INHALATION SCH (07:53)
[2017-11-21] MEDS: BUDESONIDE 1 MG/2 ML NEBU INHALATION SCH (07:53)
[2017-11-21] MEDS: IPRATROPIUM-ALBUTEROL 3 ML NEB INHALATION SCH ×2 (07:53→11:34)
--- NOTE | 2017-11-21 08:05 | XR ---
EXAMINATION TYPE: XR chest 1V portable DATE OF EXAM: 11/21/2017 COMPARISON: Prior chest 11/20/2017 HISTORY: Abnormal chest x-ray, PA pressures TECHNIQUE: Single frontal view of the chest is obtained. FINDINGS: Strand-like densities persist at the lung bases, patient is post median sternotomy, cardio mediastinal silhouette is stable, the heart is enlarged. There are overlying cardiac leads. No eviden t pneumothorax or pleural effusion. Pulmonary vascularity and nicole not significantly changed. IMPRESSION: Cardiomegaly, probable basilar atelectasis, PA and lateral chest x-ray suggested when pa tient is clinically stable.
[2017-11-21] MEDS: INSULIN ASPART 100 UNIT/ML 1 ML 10 ML VIAL SQ SCH ×4 (08:26→14:49)
[2017-11-21] MEDS: metFORMIN 500 MG TAB PO SCH (08:27)
[2017-11-21] MEDS: guaiFENesin 600 MG TABLET.ER PO SCH (08:28)
[2017-11-21] MEDS: BUMETANIDE 1 MG TAB PO SCH (08:28)
[2017-11-21] MEDS: LOSARTAN 50 MG TAB PO SCH (08:28)
[2017-11-21] MEDS: RIVAROXABAN 20 MG TAB PO SCH (08:28)
[2017-11-21] MEDS: SPIRONOLACTONE 25 MG TAB PO SCH (08:29)
[2017-11-21] MEDS: PANTOPRAZOLE 40 MG TABLET PO SCH (08:29)
[2017-11-21] MEDS: METOPROLOL SUCCINATE (ER) 50 MG TAB.ER.24H PO SCH (08:29)
[2017-11-21] MEDS: PREGABALIN 100 MG CAP PO SCH (08:32)
[2017-11-21 09:51] VITALS: BP 125/68; RESP 22
--- NOTE | 2017-11-21 09:59 | P.PN ---
Subjective Progress Note Date: 11/21/17 Principal diagnosis: Acute on chronic diastolic congestive heart failure and pulmonary hypertension with severe COPD This is a 67-year-old white male with history of COPD, FEV1 is in the range of 40%, patient usually follows up with Dr. Velazquez on a regular basis. Patient is also status post previous coronary artery bypass surgery, he has been complaining of worsening dyspnea on exertion and orthopnea for the last 3 weeks. Shortness of breath has been getting progressively worse. Patient is also known to have history of atrial fibrillation. Controlled with Tikosyn. Patient had breakthrough atrial fibrillation, recently seen by cardiology, and a cardiac catheterization was recommended for further evaluation and for possibly considering ablation in the future. Yesterday, the patient underwent left and right heart catheterization, he was found to have patent SANDERS to LAD, and patent saphenous vein graft to the obtuse marginal branch. Patient was also noted to have significant pulmonary hypertension and pulmonary capillary wedge pressures were high with elevated left ventricular end-diastolic pressure. Chest x-ray showed minimal interstitial edema, patient had a pulmonary artery catheter placed by the radiochemical technician, placed on Lasix drip at 5 mg per hour, transferred to the ICU for further optimization of his interstitial edema. Patient has been responding quite well to diuretics, however his pulmonary pressures remained basically the same. Clinically the patient is basically the same in spite of significant diuresis over the last 12 hours. All his meds were reviewed, and I believe he is going to be started on nitroglycerin drip as per cardiology. CBC is relatively normal. Basic metabolic profile is relatively normal, his bicarb is elevated as expected at 33 , renal profile is normal. Blood sugar is 269. During my evaluation in the ICU , patient had no headache, no blurred vision, no dizziness, no chest pain, he does have history of chronic shortness of breath, no palpitations, no nausea no vomiting no abdominal pain and melena no hematemesis no dysuria and no frequency no urgency. Reevaluated today on 11/18/2017, patient remains in the ICU, continues to have a pulmonary artery catheter in place, remains on Lasix drip, urine output is excellent, patient did not to do well with nitroglycerin drip, and his pulmonary artery pressures did not change much. Today's pulmonary artery pressure is 48/23. Slightly improved compared to yesterday. Chest x-ray is showing slight improvement. Continues to have some basilar atelectasis. Patient denies any fever no chills, no chest pain. No attempts have been made to wedge the pulmonary artery catheter, it is however noted to be in the proximal right pulmonary artery. Patient does have leukocytosis, but there is no clear-cut evidence of infection, believe his leukocytosis could be related to steroids. His renal functioning seems to be a bit worse, and I believe he may be over diuresed at this point. On 11/19/2017 patient seen in follow-up in intensive care unit. He is in the recliner, denies any acute distress, he reports his dyspnea is improving. Currently on 4 L per nasal cannula with O2 sat 93%, as a congested cough, with occasional production of yellow sputum. Lung sounds are positive for a few scattered rhonchi, no wheezing no rales noted. Denies any fever or chills, denies any chest wall tenderness. Patient's PA catheter was discontinued, patient remains on IV Lasix drip at 5 mg per hour, we will transition him to oral diuretics this morning. Remains on insulin drip currently at 13 units per hour in view of steroid induced hyperglycemia, and we will transition his IV steroids to oral prednisone this morning. Chest x-ray was reviewed, and shows of component of fluid overload, although clinically patient is feeling and breathing better today. Maintenance IV for includes 0.9 at a rate of 20 ML per hour. We will switch patient Symbicort to Pulmicort and Perforomist, and continue DuoNeb. Patient's in negative fluid balance over 2400 cc over last 24 hours, and his weight is down to 135 kg from 144.3. Hemodynamically stable, in sinus mechanism with a controlled rate. We will transfer the patient out of the intensive care today to a [facility] care bed, with an intention further stabilizing his pulmonary status and hopefully discharge home with an outpatient referral to pulmonary hypertension clinic at that [facility] with Dr. Jacob Salazar. Progress note dated 11/20/2017 The patient is again seen on November 20. He remains in the intensive care unit. The patient's on O2 4 L by nasal cannula and he is not receiving any IV fluids. The patient is very stable can be transferred out to the floor. I believe he should go to the general medical floor with telemetry. He no reason for him to go to [address] [place] [address]. The patient's pretty much almost at baseline in regards to his COPD. He denies any significant shortness of breath at this time. Denies any cough wheezing chest congestion phlegm production or coughing up of any blood. Earlier in his hospitalization, here in the ICU, he had a Wilson-Brendon catheter placed. IV nitroglycerin was apparently used to try to lower his pulmonary artery pressure without success. Subsequently discontinued. The patient will be sent to [facility] to see if pulmonary hypertension specialist there. The patient does have secondary pulmonary hypertension, likely secondary to his underlying severe COPD. On 11/21/2017 patient seen in follow-up in the intensive care unit. Yesterday as the patient was getting ready to be discharged home, patient had a 7 beat run of VT, nonsustained. He shouldn't remained asymptomatic. Patient's Tykosyn had been discontinued, and the patient was given 2 g of magnesium sulfate, with no recurrence of ventricular tachycardia. This morning he remains in sinus rhythm, he was dynamically stable, denies any chest pain, denies any worsening dyspnea. Campbell on 3 L per nasal cannula with O2 sat 94%, afebrile. Lung sounds are clear, diminished at the bases, no rhonchi no wheezes noted, patient continues on oral prednisone, nebulized bronchodilators, Bumex at 2 mg twice daily, Mucinex. Patient is stable from pulmonary standpoint , and once cleared by cardiology to be considered for discharge home today, follow up in the pulmonary office Objective - Vital Signs Vital signs: Vital Signs Temp 97.9 F 11/21/17 04:00 Pulse 80 11/21/17 08:12 Resp 22 11/21/17 08:00 BP 125/68 11/21/17 08:00 Pulse Ox 94 L 11/21/17 08:00 Intake & Output 11/20/17 11/21/17 11/21/17 18:59 06:59 18:59 Intake Total 480 480 Output Total 450 450 Balance 30 480 -450 Weight 139.2 kg 139.2 kg Intake: Oral 480 480 Output: Urine 450 450 Other: Voiding Method Toilet Toilet Urinal Urinal # Voids 1 2 2 # Bowel Movements 1 1 ABP, PAP, CO, CI - Last Documented Pulmonary Artery Pressure 48/22 Cardiac Output 7.7 Cardiac Index 3.0 - Exam Physical Exam: Revealed a 67-year-old white male in no distress, on nasal cannula, there has been an interval change of Wilson-Brendon catheter removal from the right groin, the right groin is clean dry and intact, soft, with no evidence of hematoma.. Head: Atraumatic, normocephalic. HEENT:[Neck is supple.] [No neck masses.] [No thyromegaly.] [No JVD.] Chest: [equal chest expansion bilaterally, diminished breath sounds at the bases , no crackles, no rhonchi, no wheezes..] Cardiac Exam: [Normal S1 and S2, no S3 gallop, no murmur.] Abdomen: [Obese, Soft, nontender, no megaly, no rebound, no guarding, normal bowel sounds.] Extremities: [No clubbing, no edema, no cyanosis.] Right groin was examined, clean dry and intact soft Neurological Exam: [No focal neurologic deficit.] Psychiatric: Normal mood, normal affect. Lymphatics: No lymphadenopathy. - Labs CBC & Chem 7: 11/21/17 03:54 11/21/17 03:54 Labs: Abnormal Lab Results - Last 24 Hours (Table) 11/20/17 11/20/17 11/21/17 Range/Units 16:56 20:05 03:54 RDW 17.1 H (11.5-15.5) % Chloride (98-107) mmol/L Carbon Dioxide (22-30) mmol/L BUN (9-20) mg/dL Glucose (74-99) mg/dL POC Glucose (mg/dL) 212 H 241 H (75-99) mg/dL Phosphorus (2.5-4.5) mg/dL 11/21/17 11/21/17 Range/Units 03:54 07:07 RDW (11.5-15.5) % Chloride 85 L (98-107) mmol/L Carbon Dioxide 45 H* (22-30) mmol/L BUN 50 H (9-20) mg/dL Glucose 117 H (74-99) mg/dL POC Glucose (mg/dL) 155 H (75-99) mg/dL Phosphorus 5.1 H (2.5-4.5) mg/dL Assessment and Plan Plan: Assessment: 1 chronic shortness of breath, multifactorial, secondary to severe COPD, secondary pulmonary hypertension, and acute on chronic diastolic congestive heart failure. And secondary to obesity/deconditioning. 2 secondary pulmonary hypertension secondary to COPD, obstructive sleep apnea syndrome. 3 paroxysmal atrial fibrillation, presently under control. 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 5 coronary artery disease, previous CABG. 6 type 2 diabetes with diabetic peripheral neuropathy 7 hypertension 8 restless leg syndrome 9 severe COPD, FEV1 is in the range of 41%. Plan: Patient remains stable from pulmonary standpoint, continue with oral prednisone , continue with nebulized bronchodilators, Symbicort. She has been reviewed, and showed probable basilar atelectasis, cardiomegaly. Patient had a short run of nonsustained V. tach yesterday, was given 2 g of magnesium sulfate, and tickets and has been discontinued, but there has been no recurrence of arrhythmia. Patient is stable to be transferred to medical surgical floor with remote telemetry, and once cleared by cardiology could be considered for discharge home. Follow up with Dr. Velazquez in the office within 7-10 days I performed a history & physical examination of the patient and discussed their management with my nurse practitioner, Ketty Loja. I reviewed the nurse practitioner's note and agree with the documented findings and plan of care. Lung sounds are clear. The findings and the impression was discussed with the patient. I attest to the documentation by the nurse practitioner. Critical care time is over 30 minutes Time with Patient: Greater than 30
[2017-11-21 11:45] VITALS: PULSE 75
--- NOTE | 2017-11-21 11:53 | CDI ---
Last Revision, June 2017 Documentation Clarification Form Date: 11/21/2017 From: Kelly Mattson RN, CCDS Admit Date: 11/16/2017 12:44:00 PM Patient Name: Oral Styles Visit Number: [id number] Discharge Date: ATTENTION: The Clinical Documentation Specialists (CDI) and [facility] Coding Staff appreciate your assistance in clarifying documentation. Please respond to the clarification below the line at the bottom and electronically sign. The CDI & [facility] Coding staff will review the response and follow-up if needed. Please note: Queries are made part of the Legal Health Record. If you have any questions, please contact the author of this message via ITS. Dr. Héctor Olea Documentation of severe COPD is located in the H/P, your consultation and progress notes. History/Risk Factors: COPD, Coronary artery disease, Paroxysmal atrial fibrillation, Chronic Diastolic congestive heart failure, Secondary pulmonary hypertension, Type 2 Diabetes, Hypertension Significant history of respiratory disorders/disease, Former smoker Home O2: 2/L NC Clinical Indicators: Patient has been having exertional shortness of breath with orthopnea. He present after left heart catheterization with findings of secondary pulmonary hypertension secondary to COPD, obstructive sleep apnea syndrome. CXR: 11/16/2017 Mild/moderate cardiomegaly with interstitial changes and possible trace left effusion. Correlate for mild CHF with pulmonary vascular congestion Vital Signs/Pulse OX, 124/55 66 21 (^ % 4/L NC Lung and Respiratory Assessment: 11/17/17: diminished breath sounds at the bases , no crackles, no rhonchi, no wheezes Treatment: Solu-Medrol IV Nebulizers: Duonebs per orders Perforomist Inhalation Pulmicort Inhalation Mucinex PO Monitor O2 Sat's (titrate) In your professional opinion, can you please clarify if the above findings and treatment signify any of the following? Acute Exacerbation of Chronic Obstructive Pulmonary Disease (COPD) COPD without Exacerbation Other condition, please specify Unable to determine Please continue to document in your progress notes and discharge summary in order to capture severity of illness and risk of mortality. Include clinical findings that support your diagnosis. MTDD
[2017-11-21 12:49] LABS: Glucose,Whole Blood 172 mg/dL (75-99)
[2017-11-21] MEDS: NON-FORMULARY DRUG (Canagliflozin [Invokana] 100 MG) PO SCH (14:49)
--- NOTE | 2017-11-21 15:31 | P.PN ---
Subjective Progress Note Date: 11/21/17 This 67-year-old gentleman was admitted and had a right heart catheterization. Patient was found to have significant pulmonary hypertension and also end- diastolic pressures. Patient was treated with IV Lasix and nitroglycerin. Changed to by mouth Bumex and also Entresto. Patient was also on steroids which were tapered off. Patient symptomatically improved. Patient was ready to be discharged yesterday patient had episodes of nonsustained V. tach yesterday 2. Patient was taken off Tikosyn and was treated with IV magnesium. Patient was observed overnight. His EKG did not reveal any prolongation of QT interval. Episode of V. tach could be related to several inhalers. Any help. Patient was having breakthrough atrial fibrillation. Dr. VC Hamlin advised to discontinue Tikosyn. Patient is being discharged home today. Follow -up with Dr. VC Hamlin. Patient may have ablation for atrial fibrillation soon Objective - Vital Signs Vital signs: Vital Signs Temp 97.9 F 11/21/17 04:00 Pulse 75 11/21/17 11:44 Resp 22 11/21/17 08:00 BP 125/68 11/21/17 08:00 Pulse Ox 94 L 11/21/17 08:00 Intake & Output 11/20/17 11/21/17 11/21/17 18:59 06:59 18:59 Intake Total 480 480 Output Total 450 450 Balance 30 480 -450 Weight 139.2 kg 139.2 kg Intake: Oral 480 480 Output: Urine 450 450 Other: Voiding Method Toilet Toilet Toilet Urinal Urinal Urinal # Voids 1 2 2 # Bowel Movements 1 1 ABP, PAP, CO, CI - Last Documented Pulmonary Artery Pressure 48/22 Cardiac Output 7.7 Cardiac Index 3.0 - Exam GENERAL EXAM: Patient is alert and oriented and doesn't appear to be in any acute distress HEENT: Normocephalic. Normal reaction of pupils, equal size, normal range of extraocular motion. No erythema or exudates in the throat. NECK: No masses, no nuchal rigidity. CHEST: No chest wall deformity. LUNGS: Equal air entry with no crackles or wheeze. HEART: S1 and S2 normal with no audible mumurs or gallops. Regular rhythm, femorals equal on both sides.. ABDOMEN: No hepatosplenomegaly, normal bowel sounds, no guarding or rigidity. SKIN: No rashes CENTRAL NERVOUS SYSTEM: No focal deficits. EXTREMITIES: Mild edema - Labs CBC & Chem 7: 11/21/17 03:54 11/21/17 03:54 Labs: Abnormal Lab Results - Last 24 Hours (Table) 11/20/17 11/20/17 11/21/17 Range/Units 16:56 20:05 03:54 RDW 17.1 H (11.5-15.5) % Chloride (98-107) mmol/L Carbon Dioxide (22-30) mmol/L BUN (9-20) mg/dL Glucose (74-99) mg/dL POC Glucose (mg/dL) 212 H 241 H (75-99) mg/dL Phosphorus (2.5-4.5) mg/dL 11/21/17 11/21/17 11/21/17 Range/Units 03:54 07:07 12:47 RDW (11.5-15.5) % Chloride 85 L (98-107) mmol/L Carbon Dioxide 45 H* (22-30) mmol/L BUN 50 H (9-20) mg/dL Glucose 117 H (74-99) mg/dL POC Glucose (mg/dL) 155 H 172 H (75-99) mg/dL Phosphorus 5.1 H (2.5-4.5) mg/dL Assessment and Plan (1) Pulmonary hypertension Status: Acute Code(s): I27.20 - PULMONARY HYPERTENSION, UNSPECIFIED SNOMED Code(s): 87661575 (2) A-fib Status: Acute Code(s): I48.91 - UNSPECIFIED ATRIAL FIBRILLATION SNOMED Code( s): 84572591 (3) Carcinoid tumor of small intestine Status: Acute Code(s): D3A.019 - BENIGN CARCINOID TUMOR OF THE SMALL INTESTINE , UNSP PORTION SNOMED Code(s): 472807711 Plan: Patient is clinically stable since yesterday. Hasn't had any recurrence of ventricular tachycardia. Patient is being discharged home. Follow-up with Dr. VC Hamlin
--- NOTE | 2017-11-22 13:53 | P.PN ---
Subjective Progress Note Date: 11/20/17 This is 67 years old male with frequent hospitalization presents to the cardiac catheterization lab for elective cardiac catheterization and was found to have elevated pulmonary artery pressure with elevated wedge pressure and was admitted to the intensive care unit based on steel analyst recommendation to start Lasix drip at 5 mg per hour and nitroglycerin drip was started later on. Patient stated that he is been declining steadily over the last month to the point where he was not able to finish his statement winded running a composition believes that he gained at least 30 pounds in all related to fluid at the time he continue to take his Lasix twice daily with no results as it used to be. Patient eats a regular diet and to watch his salt intake. Patient is diabetic and takes metformin and invokana. Patient is noncompliant with his diet and have morbid obesity. Patient currently reported improvement in his shortness breath and thinks that he lost significant amount of weight. Patient is denying chest pain, nausea, vomiting, dumping, dizziness, lightheadedness or dysuria Despite the controversy with diuretics versus pulmonary treatment patient is slightly but better today we'll continue diuretics switch to oral patient be transfer out of the ICU for possible discharge home tomorrow. 11/20: Patient has been cleared by pulmonary medicine to be transferred to telemetry. Awaiting cardiology and they may decide to discharge patient home today. Everything will be put in place for discharge. Await further recommendations from cardiology. Objective - Vital Signs Vital signs: Vital Signs Temp 98.5 F 11/20/17 08:01 Pulse 72 11/20/17 08:10 Resp 22 11/20/17 08:01 BP 103/53 11/20/17 08:01 Pulse Ox 94 L 11/20/17 08:01 Intake & Output 11/19/17 11/20/17 11/20/17 18:59 06:59 18:59 Intake Total 184.058 240 240 Output Total 1850 400 Balance -1665.942 -160 240 Weight 140.1 kg 139 kg Intake: IV 100 Sodium Chloride 0.9% 1, 100 000 ml @ 40 mls/hr IV . Q24H [facility] Rx#:[id number] Intake, IV Titration 84.058 Amount Furosemide 250 mg In 17.583 Sodium Chloride 0.9% 225 ml @ 10 MG/HR 10 mls/hr IVP .Q24H [facility] Rx#: [id number] Insulin Regular 100 unit 66.475 In Sodium Chloride 0.9% 100 ml @ Per Protocol IV .Q0M [facility] Rx#:[id number] Oral 240 240 Output: Urine 1850 400 Other: Voiding Method Toilet Toilet Toilet Urinal Urinal Urinal ABP, PAP, CO, CI - Last Documented Pulmonary Artery Pressure 48/22 Cardiac Output 7.7 Cardiac Index 3.0 - Exam General appearance: Present: cooperative, disheveled, mild distress, obese. Absent: average body habitus, morbidly obese, no acute distress, severe distress , thin - EENT Eyes: Present: normal appearance. Absent: abnormal pupil, anicteric sclerae, disc margins sharp, edentulous, EOMI, PERRLA, fundus normal, photophobia, dentition normal, poor dentition, ptosis, scleral icterus ENT: Present: hard of hearing, pharyngeal erythema. Absent: hearing grossly normal, NA/AT, normal oropharynx, other, thrush, tonsillar exudates, tonsillar swelling Ears: bilateral: normal - Neck Neck: Present: normal ROM. Absent: lymphadenopathy, other, rigidity, stridor, thyromegaly Carotids: bilateral: upstroke normal, upstroke delayed Thyroid: bilateral: normal size - Respiratory Respiratory: bilateral: diminished, dullness, rales, rhonchi, wheezing - Cardiovascular Rhythm: regular Heart sounds: normal: S1, S2 Abnormal Heart Sounds: Present: systolic murmur, S3 Gallop. Absent: diastolic murmur, rub, S4 Gallop, click, other - Gastrointestinal General gastrointestinal: Present: distended, normal bowel sounds, soft. Absent : absent bowel sounds, decreased bowel sounds, hepatomegaly, hyperactive bowel sounds, organomegaly, rigid, scaphoid, splenomegaly, tenderness, umbilical hernia, ventral hernia - Integumentary Integumentary Comment(s): Quite bed edema of the lower extremity with no ulcer or open area. Integumentary: Present: decreased turgor, pale, rash. Absent: calor, cellulitis , cyanotic, flushed, jaundiced, normal, normal turgor, ulcer - Neurologic Neurologic: Present: CNII-XII intact - Musculoskeletal Musculoskeletal: Present: gait normal, generalized weakness, strength equal bilaterally. Absent: right sided weakness, left sided weakness - Psychiatric Psychiatric: Present: A&O x's 3, appropriate affect. Absent: intact judgment & insight - Labs CBC & Chem 7: 11/21/17 03:54 11/21/17 03:54 Labs: Abnormal Lab Results - Last 24 Hours (Table) 11/19/17 11/19/17 11/19/17 Range/Units 11:04 12:00 17:28 WBC (3.8-10.6) k/uL RDW (11.5-15.5) % Neutrophils # (1.3-7.7) k/uL Chloride (98-107) mmol/L Carbon Dioxide (22-30) mmol/L BUN (9-20) mg/dL Glucose (74-99) mg/dL POC Glucose (mg/dL) 122 H 127 H 336 H (75-99) mg/dL Phosphorus (2.5-4.5) mg/dL AST (17-59) U/L ALT (21-72) U/L Total Protein (6.3-8.2) g/dL 11/19/17 11/19/17 11/20/17 Range/Units 20:25 20:26 04:19 WBC 13.2 H (3.8-10.6) k/uL RDW 17.3 H (11.5-15.5) % Neutrophils # 11.1 H (1.3-7.7) k/uL Chloride (98-107) mmol/L Carbon Dioxide (22-30) mmol/L BUN (9-20) mg/dL Glucose (74-99) mg/dL POC Glucose (mg/dL) >600 H 296 H (75-99) mg/dL Phosphorus (2.5-4.5) mg/dL AST (17-59) U/L ALT (21-72) U/L Total Protein (6.3-8.2) g/dL 11/20/17 11/20/17 Range/Units 04:19 08:27 WBC (3.8-10.6) k/uL RDW (11.5-15.5) % Neutrophils # (1.3-7.7) k/uL Chloride 88 L (98-107) mmol/L Carbon Dioxide 39 H (22-30) mmol/L BUN 53 H (9-20) mg/dL Glucose 159 H (74-99) mg/dL POC Glucose (mg/dL) 225 H (75-99) mg/dL Phosphorus 4.9 H (2.5-4.5) mg/dL AST 64 H (17-59) U/L ALT 91 H (21-72) U/L Total Protein 5.8 L (6.3-8.2) g/dL Assessment and Plan Plan: 1. Acute on chronic respiratory failure with hypoxia: Still on O2 continue updraft treatment continue to treat pulmonary hypertension, patient seen pulmonary regular basis. 2. Dyspnea multifactorial in nature. Post heart cath with no major findings require any angioplasty that known to have pulmonary hypertension seen pulmonary on medical management. 3. Acute diastolic heart failure exacerbation with right-sided heart failure, pulmonary hypertension. 4. Morbid obesity with obstructive sleep apnea, has refused to use CPAP seen Dr. Valdez and apparently and he is on other management. 5. Diabetes mellitus. Started on Levemir 10 units at bedtime with plan to discharge him home on this. 6. Hypertension. Stable on losartan and metoprolol. 7. Hyperlipidemia. Not on any medication currently. 8. A. fib with RVR: Pulse rates under control on Tikosyn still on Xarelto 20 mg a day. GI prophylaxis: Remain on Pepcid. CODE STATUS: Full code. Discharge plan: Return home Impression and plan of care have been directed as dictated by the signing physician. Larissa Warner nurse practitioner acting as scribe for signing physician.
--- NOTE | 2017-11-22 13:57 | P.DS ---
Providers Date of admission: 11/16/17 12:44 Expected date of discharge: 11/21/17 Attending physician: Hector Perez Consults: 11/16/17 13:15 Consult Physician Urgent Consulting Provider: Mitul Velazquez Consult Reason/Comments: Lung Disease Do you want consulting provider notified?: Yes 11/17/17 09:11 Consult Physician Routine Consulting Provider: Paulette Dsouza Consult Reason/Comments: medical management Do you want consulting provider notified?: Yes Primary care physician: Paulette Dsouza Hospital Course: This is 67 years old male with frequent hospitalization presents to the cardiac catheterization lab for elective cardiac catheterization and was found to have elevated pulmonary artery pressure with elevated wedge pressure and was admitted to the intensive care unit based on automobile club information clerk recommendation to start Lasix drip at 5 mg per hour and nitroglycerin drip was started later on. Patient stated that he is been declining steadily over the last month to the point where he was not able to finish his statement winded running a composition believes that he gained at least 30 pounds in all related to fluid at the time he continue to take his Lasix twice daily with no results as it used to be. Patient eats a regular diet and to watch his salt intake. Patient is diabetic and takes metformin and invokana. Patient is noncompliant with his diet and have morbid obesity. Patient currently reported improvement in his shortness breath and thinks that he lost significant amount of weight. Patient is denying chest pain, nausea, vomiting, dumping, dizziness, lightheadedness or dysuria Despite the controversy with diuretics versus pulmonary treatment patient is slightly but better today we'll continue diuretics switch to oral patient be transfer out of the ICU for possible discharge home tomorrow. 11/20: Patient has been cleared by pulmonary medicine to be transferred to telemetry. Awaiting cardiology and they may decide to discharge patient home today. Everything will be put in place for discharge. Await further recommendations from cardiology. 11/21: Patient's discharge was held yesterday due to patient having V. tach. Magnesium was replaced. Patient has now been cleared for discharge by cardiology. Patient is concerned because he is unable to afford Le[facility] Patient to potato picker samples in the office. Patient will be discharged home today in stable condition. Discharge diagnoses: 1. Acute on chronic respiratory failure with hypoxia due to pulmonary hypertension 2. Dyspnea multifactorial in nature. Post heart cath with no major findings require any angioplasty that known to have pulmonary hypertension 3. Acute diastolic heart failure exacerbation with right-sided heart failure, pulmonary hypertension. 4. Morbid obesity with obstructive sleep apnea, has refused to use CPAP 5. Diabetes mellitus type 2. 6. Hypertension. 7. Hyperlipidemia. 8. A. fib with RVR, paroxysmal Discharge plan: Return home Impression and plan of care have been directed as dictated by the signing physician. Larissa Warner nurse practitioner acting as scribe for signing physician. Patient Condition at Discharge: Good Plan - Discharge Summary Discharge Rx Participant: No New Discharge Prescriptions: New Budesonide [Pulmicort] 1 mg INHALATION RT-BID #60 nebu Bumetanide [BUMEX] 2 mg PO BID #120 tab guaiFENesin [Mucinex] 600 mg PO Q12HR tablet.er Insulin Detemir [Levemir] 10 unit SQ HS #2 syr Losartan [Cozaar] 50 mg PO DAILY #30 tab Spironolactone [Aldactone] 50 mg PO BID #120 tab Continue Budesonide-Formot 160-4.5 Mcg [Symbicort 160-4.5 Mcg Inhaler] 2 puff INHALATION RT-BID Rivaroxaban [Xarelto] 20 mg PO DAILY #0 Albuterol Inhaler [Ventolin Hfa Inhaler] 2 puff INHALATION RT-DAILY PRN PRN Reason: Shortness Of Breath Nitroglycerin Sl Tabs [Nitrostat] 0.4 mg SUBLINGUAL Q5M PRN PRN Reason: Angina Metoprolol Succinate (ER) [Toprol XL] 50 mg PO DAILY Albuterol Nebulized [Ventolin Nebulized] 2.5 mg INHALATION RT-DAILY PRN #0 nebu PRN Reason: Shortness Of Breath Dofetilide 500 mcg PO BID metFORMIN HCL 1,000 mg PO BID Pregabalin [Lyrica] 300 mg PO BID Canagliflozin [Invokana] 100 mg PO DAILY Pantoprazole [Protonix] 40 mg PO DAILY #30 tablet.dr Ferrous Sulfate [Feosol] 325 mg PO SA rOPINIRole HCL [Requip] 1.5 mg PO HS HYDROcodone/APAP 5-325MG [Puposky 5-325] 1 tab PO Q4HR PRN PRN Reason: Pain Discontinued Bumetanide [BUMEX] 1 mg PO DAILY@1530 Losartan Potassium [Cozaar] 100 mg PO DAILY Discharge Medication List Budesonide-Formot 160-4.5 Mcg [Symbicort 160-4.5 Mcg Inhaler] 2 puff INHALATION RT-BID 12/26/13 [History] Rivaroxaban [Xarelto] 20 mg PO DAILY #0 06/08/15 [Rx] Albuterol Inhaler [Ventolin Hfa Inhaler] 2 puff INHALATION RT-DAILY PRN [History] Nitroglycerin Sl Tabs [Nitrostat] 0.4 mg SUBLINGUAL Q5M PRN 11/11/15 [History] Metoprolol Succinate (ER) [Toprol XL] 50 mg PO DAILY 11/21/15 [History] Albuterol Nebulized [Ventolin Nebulized] 2.5 mg INHALATION RT-DAILY PRN #0 nebu 11/25/15 [Rx] Dofetilide 500 mcg PO BID 06/08/17 [History] Pregabalin [Lyrica] 300 mg PO BID 06/08/17 [History] metFORMIN HCL 1,000 mg PO BID 06/08/17 [History] Canagliflozin [Invokana] 100 mg PO DAILY 06/09/17 [History] Pantoprazole [Protonix] 40 mg PO DAILY #30 tablet. 06/23/17 [Rx] Ferrous Sulfate [Feosol] 325 mg PO SA 11/12/17 [History] rOPINIRole HCL [Requip] 1.5 mg PO HS 11/12/17 [History] HYDROcodone/APAP 5-325MG [Puposky 5-325] 1 tab PO Q4HR PRN 11/16/17 [History] Budesonide [Pulmicort] 1 mg INHALATION RT-BID #60 nebu 11/20/17 [Rx] Bumetanide [BUMEX] 2 mg PO BID #120 tab 11/20/17 [Rx] Insulin Detemir [Levemir] 10 unit SQ HS #2 syr 11/20/17 [Rx] Losartan [Cozaar] 50 mg PO DAILY #30 tab 11/20/17 [Rx] Spironolactone [Aldactone] 50 mg PO BID #120 tab 11/20/17 [Rx] guaiFENesin [Mucinex] 600 mg PO Q12HR tablet.er 11/20/17 [Rx] Follow up Appointment(s)/Referral(s): [facility] [Provider Group] - 11/30/17 3:45 pm Paulette Dsouza MD [Primary Care Provider] - 11/22/17 1:30 pm (. See [facility] pharmacist.) Mitul Velazquez MD [STAFF PHYSICIAN] - 11/29/17 2:15 pm Patient Instructions/Handouts: Left Heart Catheterization (DC), Pulmonary Arterial Hypertension (GEN) Activity/Diet/Wound Care/Special Instructions: Stop at office today to get Levemir samples. Dr Dsouza's office you will see Kim ENCISO @ 1pm on 11/22 then you will see [facility] (pharmacist) @ 130pm Discharge Disposition: HOME SELF-CARE
== END 2017-11-21 14:08 | disposition home or self-care (01) | DRG 286 ==
LOC: CATHCVL 10:45 → 6ICU 12:44
PROVIDERS: ADMIT Internal Medicine Geriatric Medicine; ATTEND Internal Medicine Geriatric Medicine
PROC: B2111ZZ Fluoroscopy of Multiple Coronary Arteries using Low Osmolar Contrast (ICD-10-PCS; principal; 2017-11-16 11:44)
PROC: 4A023N8 Measurement of Cardiac Sampling and Pressure, Bilateral, Percutaneous Approach (ICD-10-PCS; principal; 2017-11-16 11:44)
PROC: B2151ZZ Fluoroscopy of Left Heart using Low Osmolar Contrast (ICD-10-PCS; principal; 2017-11-16 11:44)
PROC: B2131ZZ Fluoroscopy of Multiple Coronary Artery Bypass Grafts using Low Osmolar Contrast (ICD-10-PCS; principal; 2017-11-16 11:44)
DX: I11.0 Hypertensive heart disease with heart failure (principal); J96.21 Acute and chronic respiratory failure with hypoxia; I47.2 Ventricular tachycardia; J98.11 Atelectasis; Z68.41 Body mass index [BMI] 40.0-44.9, adult; I50.33 Acute on chronic diastolic (congestive) heart failure; D72.829 Elevated white blood cell count, unspecified; E11.42 Type 2 diabetes mellitus with diabetic polyneuropathy; E11.65 Type 2 diabetes mellitus with hyperglycemia; G47.33 Obstructive sleep apnea (adult) (pediatric); E66.01 Morbid (severe) obesity due to excess calories; E78.5 Hyperlipidemia, unspecified; F32.9 Major depressive disorder, single episode, unspecified; F41.9 Anxiety disorder, unspecified; G25.81 Restless legs syndrome; I25.10 Atherosclerotic heart disease of native coronary artery without angina pectoris; I25.82 Chronic total occlusion of coronary artery; I27.29 Other secondary pulmonary hypertension; I48.0 Paroxysmal atrial fibrillation; J44.9 Chronic obstructive pulmonary disease, unspecified; T38.0X5A Adverse effect of glucocorticoids and synthetic analogues, initial encounter; Z79.01 Long term (current) use of anticoagulants; Z79.51 Long term (current) use of inhaled steroids; Z79.899 Other long term (current) drug therapy; Z82.49 Family history of ischemic heart disease and other diseases of the circulatory system; Z85.068 Personal history of other malignant neoplasm of small intestine; Z87.891 Personal history of nicotine dependence; Z91.11 Patient's noncompliance with dietary regimen; Z95.1 Presence of aortocoronary bypass graft; Z98.42 Cataract extraction status, left eye; Z98.41 Cataract extraction status, right eye; Z79.84 Long term (current) use of oral hypoglycemic drugs
CPT/HCPCS: 36600; 71045; 80048; 80053; 82805; 83036; 83735; 83880; 84100; 85025; 85610; 85730; 93459; 94640

== ENCOUNTER 2018-01-14 17:51 | Inpatient (IN) | payer MEDICARE, OTHER ==
--- NOTE | 2018-01-14 19:29 | ED ---
General Adult HPI - General Chief complaint: Recheck/Abnormal Lab/Rx Stated complaint: Dehydration Time Seen by Provider: 01/14/18 19:29 Source: patient Mode of arrival: wheelchair Limitations: no limitations - History of Present Illness Initial comments: The Stephani is a 67-year-old male with past medical history most significant for recent admission to an outside hospital for CHF, A. fib with RVR and COPD exacerbation. Patient was aggressively diuresed during that admission. He was discharged home on Sunday, his medication was changed from Lasix to Bumex, patient reports he began taking the by mouth Bumex on Sunday. He reports that he has not urinated since Sunday. Patient followed up with his primary care physician earlier today due to lack of urine output and feeling very weak and shaky. Patient's outpatient labs revealed a BUN of 100 and creatinine of 9.8, previously had no chronic kidney disease. He was advised by his primary care to come to the hospital for further evaluation. - Related Data Home Medications Medication Instructions Recorded Confirmed Budesonide-Formot 160-4.5 Mcg 2 puff INHALATION RT-BID 12/26/13 01/14/18 [Symbicort 160-4.5 Mcg Inhaler] Albuterol Inhaler [Ventolin Hfa 2 puff INHALATION RT-Q4H PRN 11/11/15 01/14/18 Inhaler] Dofetilide 500 mcg PO BID 06/08/17 01/14/18 Pregabalin [Lyrica] 150 mg PO BID 06/08/17 01/14/18 metFORMIN HCL 1,000 mg PO BID 06/08/17 01/14/18 Ferrous Sulfate [Feosol] 325 mg PO SA 11/12/17 01/14/18 rOPINIRole HCL [Requip] 1 mg PO HS 11/12/17 01/14/18 Albuterol Nebulized [Ventolin 2.5 mg INHALATION RT-Q4H PRN 01/14/18 01/14/18 Nebulized] Budesonide [Pulmicort] 1 mg INHALATION RT-DAILY 01/14/18 01/14/18 Bumetanide [BUMEX] 1 mg PO BID 01/14/18 01/14/18 Ergocalciferol (Vitamin D2) 50,000 unit PO Q7D 01/14/18 01/14/18 [Vitamin D2] Methocarbamol [Robaxin-750] 750 mg PO TID PRN 01/14/18 01/14/18 Metoprolol Succinate (ER) [Toprol 50 mg PO DAILY 01/14/18 01/14/18 Xl] Naloxone HCl [Narcan] 4 mg NASAL DIRECTED PRN 01/14/18 01/14/18 Simvastatin 40 mg PO HS 01/14/18 01/14/18 Spironolactone [Aldactone] 25 mg PO BID 01/14/18 01/14/18 guaiFENesin 400 mg PO TID PRN 01/14/18 01/14/18 oxyCODONE HCL [Roxicodone] 5 mg PO DAILY@1200 01/14/18 01/14/18 oxyCODONE HCL [Roxicodone] 20 mg PO BID@08,22 01/14/18 01/14/18 rOPINIRole HCL [Requip] 0.5 mg PO HS 01/14/18 01/14/18 Previous Rx's Medication Instructions Recorded Rivaroxaban [Xarelto] 20 mg PO DAILY #0 06/08/15 Pantoprazole [Protonix] 40 mg PO DAILY #30 tablet. 06/23/17 Insulin Detemir [Levemir] 10 unit SQ HS #2 syr 11/20/17 Losartan [Cozaar] 50 mg PO DAILY #30 tab 11/20/17 Allergies Allergy/AdvReac Type Severity Reaction Status Date / Time No Known Allergies Allergy Verified 01/14/18 20:08 Review of Systems ROS Statement: Those systems with pertinent positive or pertinent negative responses have been documented in the HPI. ROS Other: All systems not noted in ROS Statement are negative. Constitutional: Denies: fever Respiratory: Reports: dyspnea (chronic). Denies: cough Cardiovascular: Reports: palpitations Endocrine: Reports: fatigue Gastrointestinal: Denies: abdominal pain, nausea, vomiting Genitourinary: Reports: other (no urine output for 3 days) Skin: Denies: rash Neurological: Reports: weakness (generalized) Psychiatric: Denies: anxiety Hematological/Lymphatic: Denies: easy bleeding, easy bruising Past Medical History Past Medical History: Atrial Flutter, Coronary Artery Disease (CAD), Cancer, Heart Failure, COPD, Diabetes Mellitus, Hyperlipidemia, Hypertension, Sleep Apnea/CPAP/BIPAP Additional Past Medical History / Comment(s): unable to tolerate cpap at home so he uses 02-2 liters nc,constipation lbm 2 days ago, rls, neuropathy, exposure to agent orange, "mi x7 first one at age 34(1983) and last one 1997", cataracts-had sx. 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 History of Any Multi-Drug Resistant Organisms: None Reported Past Surgical History: Back Surgery, Bowel Resection, Cardiac Ablation, Coronary Bypass/CABG, Heart Catheterization, Heart Catheterization With Stent, Orthopedic Surgery Additional Past Surgical History / Comment(s): FAVIAN 12/31/13, PARTIAL LEFT KNEE arthroplasty, RT LEG ARTERY surgery(possible fem pop bypass by description), CABG X3 vessels 2007, several heart caths and total of 7 stents last one 1996 , colonoscopy,cataracts , 06/18/17 took 14 inches of small bowel out r/t cancer, Past Anesthesia/Blood Transfusion Reactions: No Reported Reaction Date of Last Stent Placement:: 1997 Past Psychological History: No Psychological Hx Reported Smoking Status: Former smoker Past Alcohol Use History: None Reported Past Drug Use History: None Reported - Past Family History Father Family Medical History: Chest Pain / Angina, Coronary Artery Disease (CAD), Myocardial Infarction ([place]) Brother(s) Family Medical History: Chest Pain / Angina, Coronary Artery Disease (CAD), Myocardial Infarction ([place]) Son(s) Family Medical History: Musculoskeletal Disorder Mother Family Medical History: Unable to Obtain Additional Family Medical History / Comment(s): of brain aneurysm at age 34 General Exam Limitations: no limitations General appearance: alert Head exam: Present: atraumatic, normocephalic Eye exam: Present: PERRL ENT exam: Present: normal exam Neck exam: Present: normal inspection Respiratory exam: Absent: respiratory distress Cardiovascular Exam: Present: tachycardia, irregular rhythm GI/Abdominal exam: Present: soft. Absent: distended Rectal exam: Present: deferred Neurological exam: Present: alert, oriented X3 Psychiatric exam: Present: normal affect Skin exam: Present: warm, dry Course Vital Signs 01/14/18 01/14/18 18:55 21:12 Temperature 98.7 F 98.5 F Pulse Rate 82 95 Respiratory 18 18 Rate Blood Pressure 84/52 120/61 O2 Sat by Pulse 89 L 98 Oximetry EKG Findings - EKG Comments: EKG Findings:: EKG at 1920, rate is 104, rhythm is atrial fibrillation, no acute ST elevations or depressions Medical Decision Making - Medical Decision Making The patient was seen and evaluated, history was obtained from the patient, conversation with his primary care physician as well as previous medical records The patient with new onset acute kidney failure in outpatient labs Repeat labs and imaging were ordered Labs again consistent with previous, even greater than 100, creatinine greater than 9 The bladder scan reveals only 33 mL of urine in the bladder Patient care was discussed with nephrology Dr. Palacio who recommends the patient receive a 1 L IV fluid bolus, 100 mL of normal saline per hour overnight, repeat morning labs at which time he'll discuss further management options Patient care was discussed with Dr. Perez who accepts the admission for acute renal failure - Lab Data Result diagrams: 01/14/18 19:35 01/14/18 19:35 Lab Results 01/14/18 01/14/18 01/14/18 Range/Units 19:30 19:35 19:35 WBC 12.2 H (3.8-10.6) k/uL RBC 4.85 (4.30-5.90) m/uL Hgb 13.9 (13.0-17.5) gm/dL Hct 41.4 (39.0-53.0) % MCV 85.3 (80.0-100.0) fL MCH 28.6 (25.0-35.0) pg MCHC 33.6 (31.0-37.0) g/dL RDW 16.1 H (11.5-15.5) % Plt Count 244 (150-450) k/uL Neutrophils % 74 % Lymphocytes % 16 % Monocytes % 7 % Eosinophils % 1 % Basophils % 0 % Neutrophils # 9.0 H (1.3-7.7) k/uL Lymphocytes # 1.9 (1.0-4.8) k/uL Monocytes # 0.8 (0-1.0) k/uL Eosinophils # 0.1 (0-0.7) k/uL Basophils # 0.0 (0-0.2) k/uL Anisocytosis Slight PT (9.0-12.0) sec INR (<1.2) APTT (22.0-30.0) sec Sodium 131 L (137-145) mmol/L Potassium 5.0 (3.5-5.1) mmol/L Chloride 83 L (98-107) mmol/L Carbon Dioxide 23 (22-30) mmol/L Anion Gap 25 mmol/L BUN 106 H* (9-20) mg/dL Creatinine 9.40 H* (0.66-1.25) mg/dL Est GFR (CKD-EPI)AfAm 6 (>60 ml/min/1.73 sqM) Est GFR (CKD-EPI)NonAf 5 (>60 ml/min/1.73 sqM) Glucose 111 H (74-99) mg/dL POC Glucose (mg/dL) 119 H (75-99) mg/dL POC Glu Auto Body Straightener ID Liya Ramos Calcium 9.3 (8.4-10.2) mg/dL Total Bilirubin 0.4 (0.2-1.3) mg/dL AST 104 H (17-59) U/L ALT 56 (21-72) U/L Alkaline Phosphatase 71 (38-126) U/L Total Protein 6.2 L (6.3-8.2) g/dL Albumin 4.0 (3.5-5.0) g/dL // Range/Units 19:35 WBC (3.8-10.6) k/uL RBC (4.30-5.90) m/uL Hgb (13.0-17.5) gm/dL Hct (39.0-53.0) % MCV (80.0-100.0) fL MCH (25.0-35.0) pg MCHC (31.0-37.0) g/dL RDW (11.5-15.5) % Plt Count (150-450) k/uL Neutrophils % % Lymphocytes % % Monocytes % % Eosinophils % % Basophils % % Neutrophils # (1.3-7.7) k/uL Lymphocytes # (1.0-4.8) k/uL Monocytes # (0-1.0) k/uL Eosinophils # (0-0.7) k/uL Basophils # (0-0.2) k/uL Anisocytosis PT 10.7 (9.0-12.0) sec INR 1.1 (<1.2) APTT 26.5 (22.0-30.0) sec Sodium (137-145) mmol/L Potassium (3.5-5.1) mmol/L Chloride (98-107) mmol/L Carbon Dioxide (22-30) mmol/L Anion Gap mmol/L BUN (9-20) mg/dL Creatinine (0.66-1.25) mg/dL Est GFR (CKD-EPI)AfAm (>60 ml/min/1.73 sqM) Est GFR (CKD-EPI)NonAf (>60 ml/min/1.73 sqM) Glucose (74-99) mg/dL POC Glucose (mg/dL) (75-99) mg/dL POC Glu Auto Body Straightener ID Calcium (8.4-10.2) mg/dL Total Bilirubin (0.2-1.3) mg/dL AST (17-59) U/L ALT (21-72) U/L Alkaline Phosphatase (38-126) U/L Total Protein (6.3-8.2) g/dL Albumin (3.5-5.0) g/dL Disposition Clinical Impression: Renal failure Disposition: ADMITTED IP TO THIS [facility] Decision Time: 21:37
[2018-01-14 19:32] LABS: Glucose,Whole Blood 119 mg/dL (75-99)
[2018-01-14 20:11] LABS: Anisocytosis Slight; Basophils % (A) 0 %; Eosinophils # (A) 0.1 k/uL (0-0.7); Eosinophils % (A) 1 %; HCT 41.4 % (39.0-53.0); HGB 13.9 gm/dL (13.0-17.5); Lymphocytes # (A) 1.9 k/uL (1.0-4.8); Lymphocytes % (A) 16 %; MCH 28.6 pg (25.0-35.0); MCHC 33.6 g/dL (31.0-37.0); MCV 85.3 fL (80.0-100.0); Mean Platelet Volume 7.4; Monocytes # (A) 0.8 k/uL (0-1.0); Monocytes % (A) 7 %; Neutrophils % (A) 74 %; Platelet Count 244 k/uL (150-450); RBC 4.85 m/uL (4.30-5.90); RDW 16.1 % (11.5-15.5); WBC 12.2 k/uL (3.8-10.6)
[2018-01-14 20:19] LABS: Calcium 9.3 mg/dL (8.4-10.2); INR 1.1 (<1.2); Partial Thromboplastin Time 26.5 sec (22.0-30.0); Prothrombin Time 10.7 sec (9.0-12.0); Total Bilirubin 0.4 mg/dL (0.2-1.3); Total Protein 6.2 g/dL (6.3-8.2)
[2018-01-14] MEDS ORDERED: SODIUM CHLORIDE 0.9% 1,000 ML IV ONE (20:50)
[2018-01-14] MEDS ORDERED: NALOXONE 0.4 MG/ML 1 ML VIAL IV PRN (20:53)
[2018-01-14] MEDS: SODIUM CHLORIDE 0.9% 1,000 ML IV SCH (21:00)
--- NOTE | 2018-01-14 21:15 | XR ---
EXAMINATION TYPE: XR chest 1V DATE OF EXAM: 01/14/2018 COMPARISON: 11/21/2017 HISTORY: COPD. Heart failure. TECHNIQUE: Single frontal view of the chest is obtained. FINDINGS: There is small linear density at the lung bases. There is no heart failure. Heart appears enlarged. There are sternal wires. There are chest leads. IMPRESSION: There is clearing of mild pulmonary congestion compared to old exam. Mild subsegmental a telectasis at the lung bases is improved.
[2018-01-15 07:14] LABS: Anisocytosis Slight; Basophils % (A) 0 %; Eosinophils # (A) 0.2 k/uL (0-0.7); Eosinophils % (A) 2 %; HCT 42.3 % (39.0-53.0); HGB 13.4 gm/dL (13.0-17.5); Lymphocytes # (A) 1.4 k/uL (1.0-4.8); Lymphocytes % (A) 12 %; MCH 27.9 pg (25.0-35.0); MCHC 31.8 g/dL (31.0-37.0); MCV 87.9 fL (80.0-100.0); Mean Platelet Volume 7.2; Monocytes # (A) 0.5 k/uL (0-1.0); Monocytes % (A) 4 %; Neutrophils % (A) 79 %; Platelet Count 232 k/uL (150-450); RBC 4.81 m/uL (4.30-5.90); RDW 16.4 % (11.5-15.5); WBC 11.4 k/uL (3.8-10.6)
[2018-01-15 07:43] LABS: Calcium 8.5 mg/dL (8.4-10.2); Magnesium 2.4 mg/dL (1.6-2.3); Potassium 5.1 mmol/L (3.5-5.1)
[2018-01-15 08:00] LABS: Phosphorus 14.4 mg/dL (2.5-4.5)
[2018-01-15] MEDS: SODIUM CHLORIDE 0.9% 1,000 ML IV SCH ×3 (08:22→22:45)
[2018-01-15] MEDS ORDERED: ALBUTEROL NEBULIZED 2.5 MG/3 ML INHALATION PRN (09:03)
[2018-01-15] MEDS ORDERED: guaiFENesin 600 MG TABLET.ER PO PRN (09:51)
[2018-01-15] MEDS ORDERED: METHOCARBAMOL 750 MG TAB PO PRN (09:51)
[2018-01-15] MEDS ORDERED: ACETAMINOPHEN TAB 325 MG TAB PO PRN (09:55)
[2018-01-15] MEDS: METOPROLOL SUCCINATE (ER) 50 MG TAB.ER.24H PO SCH (10:24)
--- NOTE | 2018-01-15 10:41 | P.HPIM ---
History of Present Illness H&P Date: 01/15/18 Chief Complaint: Acute kidney failure, pulmonary hypertension, anasarca, A. fib with RVR, [place] 67-year-old male one of Dr. Dsouza's patient who seen in October for severe dyspnea and shortness of breath and respiratory failure had a heart catheter that time patient was diagnosed with pulmonary hypertension, patient is known to have A. fib with RVR has been on Tikosyn along with anticoagulation. Patient was admitted to [facility] for 10 days was discharged this past Sunday for aggressive diuretic management secondary to anasarca. According to him he ended up having catheter but from his neck down to the heart chamber to check the pressure in his heart most likely Browning-Brendon catheter and according to the reading was giving IV diuretics in the larger dose. Patient was sent home on Sunday to be started on a Bumex 1 mg twice a day along with Aldactone and other medication were changed at [facility]. Patient was in to see Dr. Dsouza in the office in 01-14 and complain has not made any urine since Sunday, patient was sent for lab result came back with acute kidney failure with creatinine of 9.8 and bun over 100. Patient was sent to the emergency department and started on hydration after talking to nephrology will be hospitalized for acute kidney failure secondary to the nephrotoxicity of diuretics and some of his heart medication. His last creatinine from November 22 was 1.08 only, I had long discussion with Dr. Nelson patient will be watch for at least another 24 hours if his creatinine remain high or higher might need to go on hemodialysis specially with his GFR being less than 5. Review of Systems CONSTITUTIONAL: Well-developed no acute respiratory distress. Very drowsy tired and sleepy. EYES: No icterus sclerae, no conjunctivitis. EARS, NOSE, MOUTH, THROAT, and FACE: No sore throat, lymphadenopathy, carotid bruits or deformity. RESPIRATORY: Significant dyspnea, wheezes and shortness of breath. CARDIOVASCULAR: Still have show significant shortness of breath, PND, palpitation, anasarca and fluid overload. GASTROINTESTINAL: No nausea vomiting diarrhea or constipation, positive increase abdominal distention with increase Ascites GENITOURINARY: Negative for Hematuria or UTI, no kidney stones. INTEGUMENT/BREAST: Negative for any muscular injury with mild osteoarthritis.. HEMATOLOGIC/LYMPHATIC: Negative for bleed or purpura. MUSCULOSKELTAL: Negative for Myalgia or arthralgia. NEURLOGICAL: No LOC, Sz or syncope, blurred vision dizziness or abnormality.. BEHAVIORAL/PSYCH: Negative. ENDOCRINE: Negative. Past Medical History Past Medical History: Atrial Flutter, Coronary Artery Disease (CAD), Cancer, Heart Failure, COPD, Diabetes Mellitus, Hyperlipidemia, Hypertension, Sleep Apnea/CPAP/BIPAP Additional Past Medical History / Comment(s): unable to tolerate cpap at home so he uses 02-2 liters nc,constipation lbm 2 days ago, rls, neuropathy, exposure to agent orange, "mi x7 first one at age 34(1983) and last one 1997", cataracts-had sx. 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 History of Any Multi-Drug Resistant Organisms: None Reported Past Surgical History: Back Surgery, Bowel Resection, Cardiac Ablation, Coronary Bypass/CABG, Heart Catheterization, Heart Catheterization With Stent, Orthopedic Surgery Additional Past Surgical History / Comment(s): FAVIAN 12/31/13, PARTIAL LEFT KNEE arthroplasty, RT LEG ARTERY surgery(possible fem pop bypass by description), CABG X3 vessels 2007, several heart caths and total of 7 stents last one 1996 , colonoscopy,cataracts , 06/18/17 took 14 inches of small bowel out r/t cancer, Past Anesthesia/Blood Transfusion Reactions: No Reported Reaction Date of Last Stent Placement:: 1997 Past Psychological History: No Psychological Hx Reported Smoking Status: Former smoker Past Alcohol Use History: None Reported Past Drug Use History: None Reported - Past Family History Father Family Medical History: Chest Pain / Angina, Coronary Artery Disease (CAD), Myocardial Infarction ([place]) Brother(s) Family Medical History: Chest Pain / Angina, Coronary Artery Disease (CAD), Myocardial Infarction ([place]) Son(s) Family Medical History: Musculoskeletal Disorder Mother Family Medical History: Unable to Obtain Additional Family Medical History / Comment(s): of brain aneurysm at age 34 Medications and Allergies Home Medications Medication Instructions Recorded Confirmed Type Budesonide-Formot 160-4.5 Mcg 2 puff INHALATION RT-BID 12/26/13 01/14/18 History [Symbicort 160-4.5 Mcg Inhaler] Rivaroxaban [Xarelto] 20 mg PO DAILY #0 06/08/15 01/14/18 Rx Albuterol Inhaler [Ventolin Hfa 2 puff INHALATION RT-Q4H PRN 11/11/15 01/14/18 History Inhaler] Dofetilide 500 mcg PO BID 06/08/17 01/14/18 History Pregabalin [Lyrica] 150 mg PO BID 06/08/17 01/14/18 History metFORMIN HCL 1,000 mg PO BID 06/08/17 01/14/18 History Pantoprazole [Protonix] 40 mg PO DAILY #30 tablet.dr 06/23/17 01/14/18 Rx Ferrous Sulfate [Feosol] 325 mg PO SA 11/12/17 01/14/18 History rOPINIRole HCL [Requip] 1 mg PO HS 11/12/17 01/14/18 History Insulin Detemir [Levemir] 10 unit SQ HS #2 syr 11/20/17 01/14/18 Rx Losartan [Cozaar] 50 mg PO DAILY #30 tab 11/20/17 01/14/18 Rx Albuterol Nebulized [Ventolin 2.5 mg INHALATION RT-Q4H PRN 01/14/18 01/14/18 History Nebulized] Budesonide [Pulmicort] 1 mg INHALATION RT-DAILY 01/14/18 01/14/18 History Bumetanide [BUMEX] 1 mg PO BID 01/14/18 01/14/18 History Ergocalciferol (Vitamin D2) 50,000 unit PO Q7D 01/14/18 01/14/18 History [Vitamin D2] Methocarbamol [Robaxin-750] 750 mg PO TID PRN 01/14/18 01/14/18 History Metoprolol Succinate (ER) [Toprol 50 mg PO DAILY 01/14/18 01/14/18 History Xl] Naloxone HCl [Narcan] 4 mg NASAL DIRECTED PRN 01/14/18 01/14/18 History Simvastatin 40 mg PO HS 01/14/18 01/14/18 History Spironolactone [Aldactone] 25 mg PO BID 01/14/18 01/14/18 History guaiFENesin 400 mg PO TID PRN 01/14/18 01/14/18 History oxyCODONE HCL [Roxicodone] 5 mg PO DAILY@1200 01/14/18 01/14/18 History oxyCODONE HCL [Roxicodone] 20 mg PO BID@08,22 01/14/18 01/14/18 History rOPINIRole HCL [Requip] 0.5 mg PO HS 01/14/18 01/14/18 History Allergies Allergy/AdvReac Type Severity Reaction Status Date / Time No Known Allergies Allergy Verified 01/14/18 20:08 Physical Exam Vitals: Vital Signs Temp Pulse Resp BP Pulse Ox 01/15/18 07:16 92 20 113/59 95 01/15/18 05:22 98.3 F 86 16 159/119 97 01/15/18 02:02 98 18 122/58 94 L 01/15/18 00:15 98.6 F 99 18 115/60 99 01/14/18 22:54 98.0 F 91 16 108/59 95 01/14/18 21:12 98.5 F 95 18 120/61 98 01/14/18 18:55 98.7 F 82 18 84/52 89 L Intake and Output 01/14/18 01/15/18 01/15/18 22:59 06:59 14:59 Other: Weight 135.171 kg General Appearance: Alert, cooperative, no distress, appears stated age. Neck HEENT: Supple, no lymphadenopathy, no thyroid enlargement, no carotid bruits. Lungs: Decreased breaths in bilaterally with fine rhonchi positive mild expiratory wheezes with crackles in the bases specially the right side. Chest Wall: Chest wall normal expansion with deep inspiration no tenderness and no deformity was found on exam, no costochondral pain or discomfort. Heart: Irregular rhythm and rate S1-S2 positive S3 positive tachycardia +5 cm JVD. Back: Symmetric, no curvature, ROM normal, no CVA tenderness. Abdomen: Soft positive bowel sounds slight distention with positive ascites in the abdomen, mild hepatomegaly. Extremities: 1+ edema decreased pulse in dorsalis pedis bilaterally Pulses: 2+ and symmetric. Skin: Skin color, texture, tugor normal, no rashes or lesions. Neurologic: Alert oriented x3 cranial nerves II through XII intact, no motor deficit, no abnormal balance or gait. Results CBC & Chem 7: 01/15/18 06:53 01/15/18 06:53 Labs: Abnormal Lab Results - Last 24 Hours (Table) 07/01/14/18 01/14/18 Range/Units 19:30 19:35 19:35 WBC 12.2 H (3.8-10.6) k/uL RDW 16.1 H (11.5-15.5) % Neutrophils # 9.0 H (1.3-7.7) k/uL Sodium 131 L (137-145) mmol/L Chloride 83 L (98-107) mmol/L BUN 106 H* (9-20) mg/dL Creatinine 9.40 H* (0.66-1.25) mg/dL Glucose 111 H (74-99) mg/dL POC Glucose (mg/dL) 119 H (75-99) mg/dL Phosphorus (2.5-4.5) mg/dL Magnesium (1.6-2.3) mg/dL AST 104 H (17-59) U/L Total Protein 6.2 L (6.3-8.2) g/dL 01/15/18 01/15/18 Range/Units 06:53 06:53 WBC 11.4 H (3.8-10.6) k/uL RDW 16.4 H (11.5-15.5) % Neutrophils # 9.0 H (1.3-7.7) k/uL Sodium 130 L (137-145) mmol/L Chloride 84 L (98-107) mmol/L BUN 113 H* (9-20) mg/dL Creatinine 10.30 H* (0.66-1.25) mg/dL Glucose 121 H (74-99) mg/dL POC Glucose (mg/dL) (75-99) mg/dL Phosphorus 14.4 H* (2.5-4.5) mg/dL Magnesium 2.4 H (1.6-2.3) mg/dL AST (17-59) U/L Total Protein (6.3-8.2) g/dL Thrombosis Risk Factor Assmnt - DVT/VTE Prophylaxis DVT/VTE Prophylaxis: Pharmacologic Prophylaxis ordered, Mechanical Prophylaxis ordered Assessment and Plan Plan: 1 acute kidney failure: Combination of the effect of nephrotoxicity from the diuretics along with hypoperfusion and overall with go now with patient hemodynamic related to cardiopulmonary specially with the latest pulmonary hypertension and advance COPD and such. Continue on gentle hydration consult nephrology and if decline in kidney function patient will require to go on hemodialysis. 2 anasarca: Patient has been on large doses of diuretics at [facility] for 10 days was off IV diuretics on Sunday to start both Aldactone and Bumex on Sunday on. 3 pulmonary hypertension: Patient has been seen pulmonary and cardiology still on medical management continue O2 as well. 4 diastolic congestive heart failure subacute and acute at this point. Patient has been on medical management. 5 A. fib with RVR: Has been on Tikosyn and metoprolol still on anticoagulation with Xarelto 20 mg a day which will be held for the next 24 hours. 6 restless leg syndrome: Remain on Requip 1.5 g daily at bedtime. 7 hyperlipidemia: Has been on simvastatin 40 mg daily at bedtime. 8 diabetes: Type II has been on insulin and metformin, hold off metformin for now will continue insulin continue Accu-Chek with sliding scales coverage. 9 chronic pain syndrome: Has been on Lyrica, Robaxin smaller dose of hydrocodone as needed. 10 advance COPD: Patient has been on Bumex and Ventolin continue both continue O2 as well. 11 electrolyte imbalance: With a phosphorus been high patient will be on PhosLo might require urgent hemodialysis. 12 DVT prophylaxis: Patient has been on anticoagulation. 13 GI prophylaxis: Patient will be on pantoprazole 40 mg daily. CODE STATUS: Full code. Admit patient to inpatient status for more than 2 nights.
--- NOTE | 2018-01-15 11:26 | P.NPCON ---
History of Present Illness - Reason for Consult acute renal failure - History of Present Illness Reason for consultation: Acute kidney injury History of present illness: Patient is a 67-year-old male seen in renal consultation for acute kidney injury. Patient's creatinine in October 2017 was in the range of 1-1.2. He was elevated at 9.4 this admission and is up to 10.3 this morning. Patient states he was admitted at [facility] for about 10 days and was discharged past Sunday. He was admitted for CHF exacerbation and received IV diuresis. Patient had lost over 30 pounds in about a 5 day duration. He was discharged home on Bumex 2 mg daily along with Aldactone. Patient states since Sunday he hasn't made any urine at all. There is no evidence of urinary retention. Patient presented to the hospital due to feeling weak and having tremors. His BUN is elevated at 113 this morning. Denies edema. Oral intake has been fair. Denies nausea or vomiting. Blood pressure was in the systolic 80s and he did receive 1 L bolus of normal saline. Currently maintained on normal saline at 100 mL an hour. Denies chest pain or shortness of breath. Chest x-ray did not suggest any evidence of fluid overload. Continues to have intermittent tremors. Vital signs are stable. General: The patient appeared well nourished and normally developed. HEENT: Head exam is unremarkable. Neck is without jugular venous distension. LUNGS: Lungs are clear to auscultation and percussion. Breath sounds decreased. HEART: Rate and Rhythm are regular. First and second heart sounds normal. No murmurs, rubs or gallops. ABDOMEN: Abdominal exam reveals normal bowel sounds. Non-tender and non- distended. No evidence of peritonitis. EXTREMITITES: No clubbing, cyanosis, or edema. Asterixis noted. Past Medical History Past Medical History: Atrial Flutter, Coronary Artery Disease (CAD), Cancer, Heart Failure, COPD, Diabetes Mellitus, Hyperlipidemia, Hypertension, Sleep Apnea/CPAP/BIPAP Additional Past Medical History / Comment(s): unable to tolerate cpap at home so he uses 02-2 liters nc,constipation lbm 2 days ago, rls, neuropathy, exposure to agent orange, "mi x7 first one at age 34(1983) and last one 1997", cataracts-had sx. 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 History of Any Multi-Drug Resistant Organisms: None Reported Past Surgical History: Back Surgery, Bowel Resection, Cardiac Ablation, Coronary Bypass/CABG, Heart Catheterization, Heart Catheterization With Stent, Orthopedic Surgery Additional Past Surgical History / Comment(s): FAVIAN 12/31/13, PARTIAL LEFT KNEE arthroplasty, RT LEG ARTERY surgery(possible fem pop bypass by description), CABG X3 vessels 2007, several heart caths and total of 7 stents last one 1996 , colonoscopy,cataracts , 06/18/17 took 14 inches of small bowel out r/t cancer, Past Anesthesia/Blood Transfusion Reactions: No Reported Reaction Date of Last Stent Placement:: 1997 Past Psychological History: No Psychological Hx Reported Smoking Status: Former smoker Past Alcohol Use History: None Reported Past Drug Use History: None Reported - Past Family History Father Family Medical History: Chest Pain / Angina, Coronary Artery Disease (CAD), Myocardial Infarction ([place]) Brother(s) Family Medical History: Chest Pain / Angina, Coronary Artery Disease (CAD), Myocardial Infarction ([place]) Son(s) Family Medical History: Musculoskeletal Disorder Mother Family Medical History: Unable to Obtain Additional Family Medical History / Comment(s): of brain aneurysm at age 34 Medications and Allergies Home Medications Medication Instructions Recorded Confirmed Type Budesonide-Formot 160-4.5 Mcg 2 puff INHALATION RT-BID 12/26/13 01/14/18 History [Symbicort 160-4.5 Mcg Inhaler] Rivaroxaban [Xarelto] 20 mg PO DAILY #0 06/08/15 01/14/18 Rx Albuterol Inhaler [Ventolin Hfa 2 puff INHALATION RT-Q4H PRN 11/11/15 01/14/18 History Inhaler] Dofetilide 500 mcg PO BID 06/08/17 01/14/18 History Pregabalin [Lyrica] 150 mg PO BID 06/08/17 01/14/18 History metFORMIN HCL 1,000 mg PO BID 06/08/17 01/14/18 History Pantoprazole [Protonix] 40 mg PO DAILY #30 tablet. 06/23/17 01/14/18 Rx Ferrous Sulfate [Feosol] 325 mg PO SA 11/12/17 01/14/18 History rOPINIRole HCL [Requip] 1 mg PO HS 11/12/17 01/14/18 History Insulin Detemir [Levemir] 10 unit SQ HS #2 syr 11/20/17 01/14/18 Rx Losartan [Cozaar] 50 mg PO DAILY #30 tab 11/20/17 01/14/18 Rx Albuterol Nebulized [Ventolin 2.5 mg INHALATION RT-Q4H PRN 01/14/18 01/14/18 History Nebulized] Budesonide [Pulmicort] 1 mg INHALATION RT-DAILY 01/14/18 01/14/18 History Bumetanide [BUMEX] 1 mg PO BID 01/14/18 01/14/18 History Ergocalciferol (Vitamin D2) 50,000 unit PO Q7D 01/14/18 01/14/18 History [Vitamin D2] Methocarbamol [Robaxin-750] 750 mg PO TID PRN 01/14/18 01/14/18 History Metoprolol Succinate (ER) [Toprol 50 mg PO DAILY 01/14/18 01/14/18 History Xl] Naloxone HCl [Narcan] 4 mg NASAL DIRECTED PRN 01/14/18 01/14/18 History Simvastatin 40 mg PO HS 01/14/18 01/14/18 History Spironolactone [Aldactone] 25 mg PO BID 01/14/18 01/14/18 History guaiFENesin 400 mg PO TID PRN 01/14/18 01/14/18 History oxyCODONE HCL [Roxicodone] 5 mg PO DAILY@1200 01/14/18 01/14/18 History oxyCODONE HCL [Roxicodone] 20 mg PO BID@08,22 01/14/18 01/14/18 History rOPINIRole HCL [Requip] 0.5 mg PO HS 01/14/18 01/14/18 History Allergies Allergy/AdvReac Type Severity Reaction Status Date / Time No Known Allergies Allergy Verified 01/14/18 20:08 Physical Exam Vitals: Vital Signs Temp Pulse Resp BP Pulse Ox 01/15/18 07:16 92 20 113/59 95 01/15/18 05:22 98.3 F 86 16 159/119 97 01/15/18 02:02 98 18 122/58 94 L 01/15/18 00:15 98.6 F 99 18 115/60 99 01/14/18 22:54 98.0 F 91 16 108/59 95 01/14/18 21:12 98.5 F 95 18 120/61 98 01/14/18 18:55 98.7 F 82 18 84/52 89 L Intake and Output 01/14/18 01/15/18 01/15/18 22:59 06:59 14:59 Other: Weight 135.171 kg Results - Lab Results Most recent lab results Calcium 8.5 mg/dL (8.4-10.2) 01/15/18 06:53 Phosphorus 14.4 mg/dL (2.5-4.5) H* 01/15/18 06:53 Magnesium 2.4 mg/dL (1.6-2.3) H 01/15/18 06:53 01/15/18 06:53 01/15/18 06:53 Assessment and Plan Plan: Assessment: 1. Oliguric acute kidney injury secondary to ATN secondary to hypotension and diuretics. Creatinine 10.3 today. 2. Diastolic CHF with severe pulmonary hypertension. Currently compensated. 3. Diabetes mellitus. 4. Hypotension secondary to hypovolemia. Improved with IV fluids. 5. Tremors secondary to uremia. 6. Hyponatremia secondary to acute kidney injury. 7. Hyperphosphatemia secondary to acute kidney injury. Plan: With worsening renal function and signs of uremia, will consult vascular surgery for dialysis catheter placement. Plan for first hemodialysis treatment today. Mcgill catheter for strict I's and os. Avoid nephrotoxic agents and hypotensive episodes. Continue to hold metformin and diuretics. Add Renvela 800 mg 3 times daily with meals. Thank you for the consultation. I will continue to follow the patient with you during his hospital stay.
[2018-01-15] MEDS ORDERED: ONDANSETRON 4 MG/2 ML VIAL IVP PRN (11:44)
[2018-01-15] MEDS ORDERED: IV FLUID CONTINUATION 500 ML IV ONE (13:20)
[2018-01-15] MEDS ORDERED: LIDOCAINE 1% INJ 10MG/ML (20 ML MDV) ONE ×2 (13:26)
[2018-01-15] MEDS ORDERED: MIDAZOLAM 2 MG/2 ML VIAL ONE (13:32)
[2018-01-15 13:33] LABS: Amorphous Sediment,Urine Rare /hpf; Appearance,Urine Cloudy (Clear); Bilirubin,Urine Negative (Negative); Blood,Urine Moderate (Negative); Color,Urine Yellow; Glucose,Urine (UA) Negative (Negative); Hyaline Casts,Urine 4 /lpf (0-2); Ketones,Urine Negative (Negative); Leukocyte Esterase,Urine Negative (Negative); Mucus,Urine Rare /hpf; Nitrite,Urine Negative (Negative); Protein,Urine 2+ (Negative); RBC,Urine 1 /hpf (0-5); Specific Gravity,Urine 1.013 (1.001-1.035); Urobilinogen,Urine <2.0 mg/dL (<2.0); WBC,Urine 6 /hpf (0-5)
[2018-01-15] MEDS ORDERED: MIDAZOLAM 2 MG/2 ML VIAL IV ONE (13:33)
[2018-01-15] MEDS ORDERED: LIDOCAINE 1% INJ 10MG/ML (20 ML MDV) SQ ONE ×2 (13:35→13:40)
[2018-01-15] MEDS ORDERED: HEPARIN SODIUM 1,000 UN/ML (10ML VL) ONE (13:46)
[2018-01-15] MEDS ORDERED: fentaNYL (PF) 50 MCG/ML 2 ML AMP ONE (13:54)
[2018-01-15] MEDS ORDERED: fentaNYL (PF) 50 MCG/ML 2 ML AMP IV ONE (13:56)
--- NOTE | 2018-01-15 14:41 | P.CRDCN ---
History of Present Illness Consult date: 01/15/18 History of present illness: This is a pleasant 67-year-old gentleman who sees Dr. VC Hamlin in the office as an outpatient with a past medical history significant for coronary artery disease and status post coronary artery bypass grafting with the last heart catheterization was performed in October 2017 for further evaluation of dyspnea concerning for angina, permanent and the heart catheterization revealed severe left main and RCA disease with patent SANDERS to LAD and patent SVG to left circumflex. The RCA was chronically occluded at that point. During his finding and the patency of his vein grafts the patient was treated medically. The patient beside that does have history of paroxysmal atrial fibrillation, diabetes, chronic kidney disease, hypertension, dyslipidemia. He stated that he was admitted to [facility] recently with unknown details at this point. He stated that he was not feeling well lately before he presented to the hospital this time. The patient was getting treated as an outpatient for anasarca as well as severe pulmonary hypertension which was identified at his last heart catheterization in October 2017. He was treated with diuretics. He is feeling overall weak and tired. No specific complaint of chest pain or chest discomfort. He was more short of breath lately as well as. No dizziness or lightheadedness and no syncope. The patient was admitted to the hospital with acute on chronic renal failure requiring dialysis. Apparently he developed nephrotoxicity. The EKG showed atrial fibrillation with slightly uncontrolled heart rate with heart rate around 110 beats per minutes. Currently the patient denies having any chest pain or any chest discomfort. Beside that, the chest x- ray showed findings consistent was pulmonary vascular congestions. The potassium is slightly elevated. Sodium is low. No PND was performed in the emergency room. Past Medical History Past Medical History: Atrial Fibrillation, Atrial Flutter, Coronary Artery Disease (CAD), Cancer, Heart Failure, COPD, Diabetes Mellitus, GERD/Reflux, GI Bleed, Hearing Disorder / Deafness, Hyperlipidemia, Hypertension, Myocardial Infarction (AK), Sleep Apnea/CPAP/BIPAP, Vascular Disorder Additional Past Medical History / Comment(s): Pt states he was just discharged from [facility] on Sunday, January 11, 2018 where he was treated for Afib RVR/CHF and exacerbation of his COPD. 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 Last Myocardial Infarction Date:: 1997 History of Any Multi-Drug Resistant Organisms: None Reported Past Surgical History: Back Surgery, Bowel Resection, Cardiac Ablation, Coronary Bypass/CABG, Heart Catheterization, Heart Catheterization With Stent, Joint Replacement, Orthopedic Surgery Additional Past Surgical History / Comment(s): FAVIAN, cardiac ablation, several cardiac caths, PCI with stents-total of 2007 CABG 3 vessel, 14 inches small bowel removed for cancerous tumor, partial L knee replacement, R leg vascular surgery, EGD/colonoscopy, endocapsule, L toe middle toe amp, low back fusion, bilateral cataract removals. Past Anesthesia/Blood Transfusion Reactions: No Reported Reaction Date of Last Stent Placement:: 1997 Smoking Status: Former smoker - Past Family History Father Family Medical History: Chest Pain / Angina, Coronary Artery Disease (CAD), Myocardial Infarction (AK) Additional Family Medical History / Comment(s): Father of a AK at the age of 54yrs. Brother(s) Family Medical History: Chest Pain / Angina, Coronary Artery Disease (CAD), Myocardial Infarction (AK) Additional Family Medical History / Comment(s): Brother had a AK at the age of 58 yrs. He is living. Son(s) Family Medical History: Musculoskeletal Disorder Mother Family Medical History: Vascular Disorder Additional Family Medical History / Comment(s): of brain aneurysm at age 34 Medications and Allergies Home Medications Medication Instructions Recorded Confirmed Type Budesonide-Formot 160-4.5 Mcg 2 puff INHALATION RT-BID 12/26/13 01/14/18 History [Symbicort 160-4.5 Mcg Inhaler] Rivaroxaban [Xarelto] 20 mg PO DAILY #0 06/08/15 01/14/18 Rx Albuterol Inhaler [Ventolin Hfa 2 puff INHALATION RT-Q4H PRN 11/11/15 01/14/18 History Inhaler] Dofetilide 500 mcg PO BID 06/08/17 01/14/18 History Pregabalin [Lyrica] 150 mg PO BID 06/08/17 01/14/18 History metFORMIN HCL 1,000 mg PO BID 06/08/17 01/14/18 History Pantoprazole [Protonix] 40 mg PO DAILY #30 tablet. 06/23/17 01/14/18 Rx Ferrous Sulfate [Feosol] 325 mg PO SA 11/12/17 01/14/18 History rOPINIRole HCL [Requip] 1 mg PO HS 11/12/17 01/14/18 History Insulin Detemir [Levemir] 10 unit SQ HS #2 syr 11/20/17 01/14/18 Rx Losartan [Cozaar] 50 mg PO DAILY #30 tab 11/20/17 01/14/18 Rx Albuterol Nebulized [Ventolin 2.5 mg INHALATION RT-Q4H PRN 01/14/18 01/14/18 History Nebulized] Budesonide [Pulmicort] 1 mg INHALATION RT-DAILY 01/14/18 01/14/18 History Bumetanide [BUMEX] 1 mg PO BID 01/14/18 01/14/18 History Ergocalciferol (Vitamin D2) 50,000 unit PO Q7D 01/14/18 01/14/18 History [Vitamin D2] Methocarbamol [Robaxin-750] 750 mg PO TID PRN 01/14/18 01/14/18 History Metoprolol Succinate (ER) [Toprol 50 mg PO DAILY 01/14/18 01/14/18 History Xl] Naloxone HCl [Narcan] 4 mg NASAL DIRECTED PRN 01/14/18 01/14/18 History Simvastatin 40 mg PO HS 01/14/18 01/14/18 History Spironolactone [Aldactone] 25 mg PO BID 01/14/18 01/14/18 History guaiFENesin 400 mg PO TID PRN 01/14/18 01/14/18 History oxyCODONE HCL [Roxicodone] 5 mg PO DAILY@1200 01/14/18 01/14/18 History oxyCODONE HCL [Roxicodone] 20 mg PO BID@01/14/18 01/14/18 History rOPINIRole HCL [Requip] 0.5 mg PO HS 01/14/18 01/14/18 History Allergies Allergy/AdvReac Type Severity Reaction Status Date / Time No Known Allergies Allergy Verified 01/14/18 20:08 Physical Exam Vitals: Vital Signs Temp Pulse Pulse Resp BP BP Pulse Ox 01/15/18 14:32 97.1 F L 102 H 20 119/71 94 L 01/15/18 13:16 112 H 20 109/65 95 01/15/18 11:48 97.8 F 84 20 119/62 96 01/15/18 07:16 92 20 113/59 95 01/15/18 05:22 98.3 F 86 16 159/119 97 01/15/18 02:02 98 18 122/58 94 L 01/15/18 00:15 98.6 F 99 18 115/60 99 01/14/18 22:54 98.0 F 91 16 108/59 95 01/14/18 21:12 98.5 F 95 18 120/61 98 01/14/18 18:55 98.7 F 82 18 84/52 89 L Intake and Output 01/14/18 01/15/18 01/15/18 22:59 06:59 14:59 Intake Total 50 Balance 50 Intake: IV 50 Other: Weight 135.171 kg - Constitutional General appearance: no acute distress - Respiratory Respiratory: bilateral: rales - Cardiovascular Rhythm: irregularly irregular Heart sounds: normal: S1, S2 Results 01/15/18 06:53 01/15/18 06:53 Cardiac Enzymes 01/14/18 Range/Units 19:35 AST 104 H (17-59) U/L Coagulation 01/14/18 Range/Units 19:35 PT 10.7 (9.0-12.0) sec APTT 26.5 (22.0-30.0) sec CBC 01/14/18 01/15/18 Range/Units 19:35 06:53 WBC 12.2 H 11.4 H (3.8-10.6) k/uL RBC 4.85 4.81 (4.30-5.90) m/uL Hgb 13.9 13.4 (13.0-17.5) gm/dL Hct 41.4 42.3 (39.0-53.0) % Plt Count 244 232 (150-450) k/uL Comprehensive Metabolic Panel 01/14/18 01/15/18 Range/Units 19:35 06:53 Sodium 131 L 130 L (137-145) mmol/L Potassium 5.0 5.1 (3.5-5.1) mmol/L Chloride 83 L 84 L (98-107) mmol/L Carbon Dioxide 23 24 (22-30) mmol/L BUN 106 H* 113 H* (9-20) mg/dL Creatinine 9.40 H* 10.30 H* (0.66-1.25) mg/dL Glucose 111 H 121 H (74-99) mg/dL Calcium 9.3 8.5 (8.4-10.2) mg/dL AST 104 H (17-59) U/L ALT 56 (21-72) U/L Alkaline Phosphatase 71 (38-126) U/L Total Protein 6.2 L (6.3-8.2) g/dL Albumin 4.0 (3.5-5.0) g/dL Current Medications Generic Name Dose Route Start Last Admin Trade Name Freq PRN Reason Stop Dose Admin Acetaminophen 650 mg 01/15/18 09:55 01/15/18 10:28 Tylenol Tab PO 650 mg Q6HR PRN Administration Fever and/ or Mild Pain Albuterol Sulfate 2.5 mg 01/15/18 09:03 Ventolin Nebulized INHALATION RT-Q4H PRN Shortness Of Breath Budesonide 1 mg 01/16/18 08:00 Pulmicort INHALATION RT-DAILY [facility] Dofetilide 500 mcg 01/15/18 18:00 Tikosyn PO 0600,1800 [facility] Ergocalciferol 50,000 unit 01/21/18 09:00 Vitamin D2 PO Q7D [facility] Ferrous Sulfate 325 mg 01/19/18 09:00 Feosol PO SA [facility] Guaifenesin 600 mg 01/15/18 09:51 Mucinex PO TID PRN Congestion Sodium Chloride 1,000 mls @ 100 mls/hr 01/14/18 21:00 01/15/18 08:22 Saline 0.9% IV 100 mls/hr .Q10H RODRIGUEZ Administration Insulin Detemir 10 unit 01/15/18 21:00 Levemir SQ HS RODRIGUEZ Methocarbamol 750 mg 01/15/18 09:51 Robaxin PO TID PRN Muscle Spasm Metoprolol Succinate 50 mg 01/15/18 09:15 01/15/18 10:24 Toprol Xl PO 50 mg DAILY RODRIGUEZ Administration Naloxone HCl 0.2 mg 01/14/18 20:53 Narcan IV Q2M PRN Opioid Reversal Ondansetron HCl 4 mg 01/15/18 11:44 01/15/18 11:49 Zofran IVP 4 mg Q6HR PRN Administration Nausea And Vomiting Oxycodone HCl 5 mg 01/15/18 12:00 Oxyir PO DAILY@1200 RODRIGUEZ Oxycodone HCl 20 mg 01/15/18 22:00 Oxyir PO BID@08,22 RODRIGUEZ Pantoprazole Sodium 40 mg 01/16/18 07:30 Protonix PO AC-BRKFST RODRIGUEZ Pregabalin 150 mg 01/15/18 21:00 Lyrica PO BID RODRIGUEZ Ropinirole HCl 1.5 mg 01/15/18 21:00 Requip PO HS RODRIGUEZ Sevelamer Carbonate 800 mg 01/15/18 12:30 Renvela PO TID-W/MEALS RODRIGUEZ Intake and Output 01/14/18 01/15/18 01/15/18 22:59 06:59 14:59 Intake Total 50 Balance 50 Intake: IV 50 Other: Weight 135.171 kg 01/15/18 06:53 01/15/18 06:53 Assessment and Plan Assessment: Assessment #1 anasarca #2 acute on chronic renal failure #3 severe pulmonary hypertension #4 atrial fibrillation with overall controlled heart rate #5 severe coronary artery disease and status post CABG #6 hypertension #7 morbid obesity #8 dyslipidemia Plan #1 the patient is in process of having dialysis catheter. #2 the heart rate seems to be reasonably controlled on the current medical regimen #3 we'll obtain an echocardiogram was Doppler #4 continue oral anticoagulation #5 follow-up with the patient.
[2018-01-15] MEDS: SEVELAMER 800 MG TAB PO SCH ×2 (14:43→18:24)
--- NOTE | 2018-01-15 15:14 | CONS ---
DATE OF CONSULTATION: 01/15/2018 This is 67-year-old gentleman I was consulted for placement of urgent dialysis catheter. Patient has been admitted with history of: 1. Oligoanuric acute kidney injury secondary to ATN secondary to hyponatremia. 2. Diastolic congestive heart failure with severe pulmonary hypertension. 3. Diabetes mellitus. 4. Hypertension secondary to hypovolemia. 5. History of tremors due to uremia. 6. Hypernatremia and hyperphosphatemia. PHYSICAL EXAMINATION: Patient was seen. His neck is supple. No bruit appreciated. The patient has chest that is clear to auscultation. Entry is good into both lungs. First and second sound is normal. Abdomen is nontender and vascular examination brachial radial femoral pulses are present. PLAN: Placement of the dialysis catheter, risks and complications discussed. MMODL / IJN: [id number] / MTDD
--- NOTE | 2018-01-15 15:29 | XR ---
EXAMINATION TYPE: XR chest 1V DATE OF EXAM: 01/15/2018 COMPARISON: Prior chest 01/14/2018 HISTORY: Dialysis catheter placement TECHNIQUE: Single frontal view of the chest is obtained. FINDINGS: There is been interval placement of a right jugular central venous catheter, distal tip ov er the superior vena cava. No evident pneumothorax or pleural effusion. Patient is post median sterno graeme. Cardiomediastinal silhouette is stable. IMPRESSION: No evident application status post central venous catheter placement.
[2018-01-15 17:07] LABS: Glucose,Whole Blood 178 mg/dL (75-99)
--- NOTE | 2018-01-15 17:08 | PCN ---
PROCEDURE NOTE PREOP DIAGNOSIS: Acute on chronic renal failure. PROCEDURE PERFORMED: Ultrasound-guided 23 cm dialysis catheter placed. SEDATION: IV sedation time is 33 minutes. PROCEDURE: Patient brought to the animal laboratory helper. Right side of the neck and chest was prepped and drapes applied in usual sterile manner. 1% lidocaine infiltrated into the neck and chest area. Ultrasound-guided micropuncture introduced into the right internal jugular vein. Micropuncture guide wire was passed and 4-Mongolian dilator advanced on top of the guidewire. Then incision made on the anterior chest wall and a tunnel was created. Through the tunnel we brought 23 cm dialysis catheter to the neck area and then we passed a regular guidewire which was parked in the inferior vena cava. The dilator was advanced and sheath was advanced on the top of the guidewire. Through the sheath, we introduced the dialysis catheter. Tip of the catheter in superior vena cava and atrium. Flushed with heparin saline and hep-locked. Incision was closed with Vicryl and nylon. Dressing applied. Patient tolerated the procedure well. MMODL / IJN: [id number] /
[2018-01-15 17:34] LABS: Hepatitis A Antibody IgM Non-Reactive (Non-Reactive); Hepatitis B Core IgM Non-Reactive (Non-Reactive)
[2018-01-15] MEDS: DOFETILIDE 500 MCG CAP PO SCH (17:58)
[2018-01-15 20:50] LABS: Glucose,Whole Blood 152 mg/dL (75-99)
[2018-01-15] MEDS ORDERED: INSULIN DETEMIR 100 UNIT/ML 10 ML VIAL SQ ONE (21:00)
[2018-01-15] MEDS ORDERED: NON-FORMULARY DRUG (Ropinirole Hcl [Requip] 0.5 MG) PO SCH (21:00)
[2018-01-15] MEDS: METOPROLOL TARTRATE 25 MG TAB PO SCH (22:47)
[2018-01-15] MEDS: PREGABALIN 50 MG CAP PO SCH (22:47)
[2018-01-16] MEDS ORDERED: SODIUM CHLORIDE 0.9% 1,000 ML BAG ONE (03:00)
[2018-01-16 06:01] LABS: Glucose,Whole Blood 251 mg/dL (75-99)
[2018-01-16 06:23] LABS: Calcium 7.9 mg/dL (8.4-10.2)
[2018-01-16 06:39] LABS: Phosphorus 11.9 mg/dL (2.5-4.5); Potassium 6.9 mmol/L (3.5-5.1)
[2018-01-16] MEDS ORDERED: PANTOPRAZOLE 40 MG TABLET PO SCH (07:30)
[2018-01-16] MEDS: INSULIN DETEMIR 100 UNIT/ML 10 ML VIAL SQ SCH ×2 (07:37→22:14)
[2018-01-16] MEDS: DOFETILIDE 500 MCG CAP PO SCH (07:38)
[2018-01-16] MEDS: SODIUM CHLORIDE 0.9% 1,000 ML IV SCH (07:39)
[2018-01-16] MEDS: SEVELAMER 800 MG TAB PO SCH ×3 (07:42→16:13)
[2018-01-16] MEDS ORDERED: BUDESONIDE 1 MG/2 ML NEBU INHALATION SCH (08:00)
[2018-01-16 08:08] LABS: ABG Base Excess -6.2 mmol/L; ABG HCO3 23 mmol/L (21-25); ABG Oxygen Saturation 90.7 % (94-97); ABG PO2 73 mmHg (83-108); ABG TCO2 26 mmol/L (19-24)
[2018-01-16 08:17] LABS: ABG PH 7.11 (7.35-7.45)
[2018-01-16] MEDS ORDERED: FUROSEMIDE 10 MG/ML 10 ML VIAL IV STA ×2 (08:22→19:32)
[2018-01-16] MEDS: ALBUTEROL NEBULIZED 2.5 MG/3 ML INHALATION PRN ×2 (09:04→13:23)
--- NOTE | 2018-01-16 09:05 | XR ---
EXAMINATION TYPE: XR chest 1V portable DATE OF EXAM: 01/16/2018 CLINICAL HISTORY: Difficulty breathing acute hypercapnic respiratory failure. TECHNIQUE: Single AP portable upright view of the chest is obtained. COMPARISON: Chest x-ray from one day earlier and older studies. CT September 24, 2017 FINDINGS: Evaluation slightly suboptimal due to portable technique and patient's large body habitus. There is redemonstration of right internal jugular large-bore dual-lumen dialysis catheter. Overlyin g sternal wires the mediastinal clips are redemonstrated. There is persistent cardiomegaly. Increased opacity throughout both lungs favors mild alveolar and interstitial edema. No large pleural effusion or pneumothorax is seen bilaterally. Osseous structures are intact. IMPRESSION: Overall stable findings, cardiomegaly with mild to moderate diffuse bilateral alveolar and interstitial edema and/or less likely infiltrates. Correlate for CHF exacerbation and/or fluid ov erload state.
--- NOTE | 2018-01-16 10:01 | P.PN ---
Subjective Patient is seen in follow-up for acute kidney injury. Creatinine in October 2017 was in the range of 1-1.2. It was 10.3 this admission. Patient was and uric. He was started on hemodialysis this admission and tolerated the first treatment well yesterday. He's currently seen was undergoing second treatment of dialysis. Patient's on a BiPAP. Urine output overnight was 450 mL. He did receive 100 mg of IV Lasix this morning with no significant response in urine output. He is noted to have history of diastolic CHF with severe pulmonary hypertension. Vital signs are stable. General: The patient appeared well nourished and normally developed. HEENT: Head exam is unremarkable. Neck is without jugular venous distension. Currently on BiPAP. LUNGS: Lungs are clear to auscultation and percussion. Breath sounds decreased. HEART: Rate and Rhythm are regular. First and second heart sounds normal. No murmurs, rubs or gallops. ABDOMEN: Abdominal exam reveals normal bowel sounds. Non-tender and non- distended. No evidence of peritonitis. EXTREMITITES: No clubbing, cyanosis, or edema. Objective - Vital Signs Vital signs: Vital Signs Temp 97.6 F 01/16/18 08:00 Pulse 116 H 01/16/18 09:25 Resp 18 01/16/18 08:00 BP 137/76 01/16/18 08:00 Pulse Ox 92 L 01/16/18 09:05 Intake & Output 01/15/18 01/16/18 01/16/18 18:59 06:59 18:59 Intake Total 50 Output Total 540 Balance 50 -540 Weight 121.5 kg Intake: IV 50 Output: Urine 540 Other: Voiding Method Indwelling Catheter Indwelling Catheter - Labs CBC & Chem 7: 01/15/18 06:53 01/16/18 05:37 Labs: Abnormal Lab Results - Last 24 Hours (Table) 01/15/18 01/15/18 01/15/18 Range/Units 06:53 13:06 16:53 ABG pH (7.35-7.45) ABG pCO2 (35-45) mmHg ABG pO2 (83-108) mmHg ABG Total CO2 (19-24) mmol/L ABG O2 Saturation (94-97) % Sodium (137-145) mmol/L Potassium (3.5-5.1) mmol/L Chloride (98-107) mmol/L BUN (9-20) mg/dL Creatinine (0.66-1.25) mg/dL Glucose (74-99) mg/dL POC Glucose (mg/dL) 178 H (75-99) mg/dL Calcium (8.4-10.2) mg/dL Phosphorus (2.5-4.5) mg/dL Urine Protein 2+ H (Negative) Urine Blood Moderate H (Negative) Urine WBC 6 H (0-5) /hpf Amorphous Sediment Rare H (None) /hpf Hyaline Casts 4 H (0-2) /lpf Urine Mucus Rare H (None) /hpf Hep C IgG Ab Reactive H (Non-Reactive) 01/15/18 01/16/18 01/16/18 Range/Units 20:49 05:37 05:59 ABG pH (7.35-7.45) ABG pCO2 (35-45) mmHg ABG pO2 (83-108) mmHg ABG Total CO2 (19-24) mmol/L ABG O2 Saturation (94-97) % Sodium 132 L (137-145) mmol/L Potassium 6.9 H* (3.5-5.1) mmol/L Chloride 90 L (98-107) mmol/L BUN 92 H* (9-20) mg/dL Creatinine 9.77 H* (0.66-1.25) mg/dL Glucose 152 H (74-99) mg/dL POC Glucose (mg/dL) 152 H 251 H (75-99) mg/dL Calcium 7.9 L (8.4-10.2) mg/dL Phosphorus 11.9 H* (2.5-4.5) mg/dL Urine Protein (Negative) Urine Blood (Negative) Urine WBC (0-5) /hpf Amorphous Sediment (None) /hpf Hyaline Casts (0-2) /lpf Urine Mucus (None) /hpf Hep C IgG Ab (Non-Reactive) 01/16/18 Range/Units 08:04 ABG pH 7.11 L* (7.35-7.45) ABG pCO2 74 H* (35-45) mmHg ABG pO2 73 L (83-108) mmHg ABG Total CO2 26 H (19-24) mmol/L ABG O2 Saturation 90.7 L (94-97) % Sodium (137-145) mmol/L Potassium (3.5-5.1) mmol/L Chloride (98-107) mmol/L BUN (9-20) mg/dL Creatinine (0.66-1.25) mg/dL Glucose (74-99) mg/dL POC Glucose (mg/dL) (75-99) mg/dL Calcium (8.4-10.2) mg/dL Phosphorus (2.5-4.5) mg/dL Urine Protein (Negative) Urine Blood (Negative) Urine WBC (0-5) /hpf Amorphous Sediment (None) /hpf Hyaline Casts (0-2) /lpf Urine Mucus (None) /hpf Hep C IgG Ab (Non-Reactive) Assessment and Plan Plan: Assessment: 1. Oliguric acute kidney injury secondary to ATN secondary to hypotension and diuretics. Suspect cardiorenal syndrome. Creatinine 10.3 on admission. Currently hemodialysis dependent. Patient had a right IJ catheter placed on January 15. 2. Diastolic CHF with severe pulmonary hypertension. 3. Insulin-dependent diabetes mellitus. 4. Hypotension on admission. Improved with IV fluids. 5. Tremors secondary to uremia. 6. Hyponatremia secondary to acute kidney injury. Hypervolemic. 7. Hyperphosphatemia secondary to acute kidney injury. Improving with dialysis. 8. Hyperkalemia secondary to acute kidney injury. Expect improvement postdialysis. 9. Acute hypercapnic and hypoxic respiratory failure currently on BiPAP. Plan: Due to anuria and uremia, patient was started on hemodialysis on January 15. Currently seen while undergoing second treatment of hemodialysis. Status post 100 mg of IV Lasix this morning with no significant response to urine output. Third treatment of dialysis tomorrow. Maintain Mcgill catheter. Strict I's and O's. Avoid nephrotoxic agents and hypotensive episodes. Maintain Renvela with meals. He is off all IV fluids. Follow-up echocardiogram results.
--- NOTE | 2018-01-16 10:17 | P.PN ---
Subjective Progress Note Date: 01/16/18 67-year-old male one of Dr. Dsouza's patient who seen in October for severe dyspnea and shortness of breath and respiratory failure had a heart catheter that time patient was diagnosed with pulmonary hypertension, patient is known to have A. fib with RVR has been on Tikosyn along with anticoagulation. Patient was admitted to [facility] for 10 days was discharged this past Sunday for aggressive diuretic management secondary to anasarca. According to him he ended up having catheter but from his neck down to the heart chamber to check the pressure in his heart most likely [place] catheter and according to the reading was giving IV diuretics in the larger dose. Patient was sent home on Sunday to be started on a Bumex 1 mg twice a day along with Aldactone and other medication were changed at [facility]. Patient was in to see Dr. Dsouza in the office in 01-14 and complain has not made any urine since Sunday, patient was sent for lab result came back with acute kidney failure with creatinine of 9.8 and bun over 100. Patient was sent to the emergency department and started on hydration after talking to nephrology will be hospitalized for acute kidney failure secondary to the nephrotoxicity of diuretics and some of his heart medication. His last creatinine from November 22 was 1.08 only, I had long discussion with Dr. Nelson patient will be watch for at least another 24 hours if his creatinine remain high or higher might need to go on hemodialysis specially with his GFR being less than 5. 01/16: Yesterday, patient was seen by Dr. Lui and right-sided dialysis catheter was placed into the right IJ and underwent first dialysis treatment yesterday. Nephrology has added in Renvela. Mcgill catheter for strict I&O. He has had 450 mL out overnight. He was given Lasix 100 mg IV push this morning. He has also been seen by Dr. Justin and echocardiogram has been ordered. This morning, A-Team was called for mental status changes. Patient was seen by Dr. Blanco and placed on BiPAP and will be transferred to the intensive care unit once a bed is available. He has been ordered for urgent echocardiogram. Objective - Vital Signs Vital signs: Vital Signs Temp 98.7 F 01/16/18 00:00 Pulse 102 H 01/16/18 00:00 Resp 20 01/16/18 00:00 BP 142/84 01/16/18 00:00 Pulse Ox 63 L 01/16/18 00:00 Intake & Output 01/15/18 01/16/18 01/16/18 18:59 06:59 18:59 Intake Total 50 Output Total 540 Balance 50 -540 Weight 121.5 kg Intake: IV 50 Output: Urine 540 Other: Voiding Method Indwelling Catheter Indwelling Catheter - Exam General Appearance: no distress, appears stated age. Neck HEENT: Supple, no lymphadenopathy, no thyroid enlargement, no carotid bruits. Lungs: Decreased breaths in bilaterally with fine rhonchi positive mild expiratory wheezes with crackles in the bases specially the right side. Chest Wall: Chest wall normal expansion with deep inspiration no tenderness and no deformity was found on exam, no costochondral pain or discomfort. Heart: Irregular rhythm and rate S1-S2 positive S3 positive tachycardia +5 cm JVD. Back: Symmetric, no curvature, ROM normal, no CVA tenderness. Abdomen: Soft positive bowel sounds slight distention with positive ascites in the abdomen, mild hepatomegaly. Extremities: 1+ edema decreased pulse in dorsalis pedis bilaterally Pulses: 2+ and symmetric. Skin: Skin color, texture, tugor normal, no rashes or lesions. Neurologic: Mental status is altered, no responsiveness. - Labs CBC & Chem 7: 01/15/18 06:53 01/16/18 05:37 Labs: Abnormal Lab Results - Last 24 Hours (Table) 01/15/18 01/15/18 01/15/18 Range/Units 06:53 13:06 16:53 Sodium (137-145) mmol/L Potassium (3.5-5.1) mmol/L Chloride (98-107) mmol/L BUN (9-20) mg/dL Creatinine (0.66-1.25) mg/dL Glucose (74-99) mg/dL POC Glucose (mg/dL) 178 H (75-99) mg/dL Calcium (8.4-10.2) mg/dL Phosphorus (2.5-4.5) mg/dL Urine Protein 2+ H (Negative) Urine Blood Moderate H (Negative) Urine WBC 6 H (0-5) /hpf Amorphous Sediment Rare H (None) /hpf Hyaline Casts 4 H (0-2) /lpf Urine Mucus Rare H (None) /hpf Hep C IgG Ab Reactive H (Non-Reactive) 01/15/18 01/16/18 01/16/18 Range/Units 20:49 05:37 05:59 Sodium 132 L (137-145) mmol/L Potassium 6.9 H* (3.5-5.1) mmol/L Chloride 90 L (98-107) mmol/L BUN 92 H* (9-20) mg/dL Creatinine 9.77 H* (0.66-1.25) mg/dL Glucose 152 H (74-99) mg/dL POC Glucose (mg/dL) 152 H 251 H (75-99) mg/dL Calcium 7.9 L (8.4-10.2) mg/dL Phosphorus 11.9 H* (2.5-4.5) mg/dL Urine Protein (Negative) Urine Blood (Negative) Urine WBC (0-5) /hpf Amorphous Sediment (None) /hpf Hyaline Casts (0-2) /lpf Urine Mucus (None) /hpf Hep C IgG Ab (Non-Reactive) Assessment and Plan Plan: 1. Acute oliguric kidney failure secondary to ATN secondary to hypotension and diuretics, possible cardiorenal syndrome. Patient has been seen by Dr. Robison and right IJ catheter was placed and patient has been started on hemodialysis with repeat emergently plan toda and repeat for tomorrow. Renvela started by nephrology. Consult with nephrology appreciated. 2. Acute hypercapnic and hypoxic respiratory failure. Patient has been placed on BiPAP and managed by Dr. Olea. Patient to be transferred to the intensive care unit. Continue albuterol nebulizer treatment as needed, Pulmicort 1 mg twice daily. 3. Metabolic encephalopathy most likely secondary to uremia (uremic encephalopathy) and possible hypoxic encephalopathy. 4. Anasarca: Patient has been on large doses of diuretics at [facility] for 10 days was off IV diuretics on Sunday to start both Aldactone and Bumex on Sunday. 5. Pulmonary hypertension: Patient has been seen pulmonary and cardiology still on medical management continue O2 as well. 6. Acute on chronic diastolic heart failure. IV Lasix to be dosed daily, continue hemodialysis. Cardiology consult appreciated. 7. Paroxysmal atrial fibrillation presenting with controlled rate, currently RVR. Consult with Dr. Justin is appreciated. Continue Tikosyn, metoprolol with Xarelto 20 mg a day. 8. Restless leg syndrome: Remain on Requip 1.5 g daily at bedtime. 9. Hyperlipidemia: Has been on simvastatin 40 mg daily at bedtime. 10. Diabetes: Type II has been on insulin and metformin, hold metformin. Continue Levemir 10 units at bedtime and Accu-Chek with sliding scales coverage. 11. Chronic pain syndrome: Has been on Lyrica, Robaxin smaller dose of hydrocodone as needed. 12. Advance COPD: Patient has been on Bumex and Ventolin continue both continue O2 as well. 13. Electrolyte imbalance: With a phosphorus been high patient will be on PhosLo might require urgent hemodialysis. 12 DVT prophylaxis: Patient has been on anticoagulation. 13 GI prophylaxis: Patient will be on pantoprazole 40 mg daily. CODE STATUS: Full code. Discharge plan: To be determined Impression and plan of care have been directed as dictated by the signing physician. Larissa Warner nurse practitioner acting as scribe for signing physician.
[2018-01-16] MEDS: PREGABALIN 50 MG CAP PO SCH ×2 (11:23→20:56)
--- NOTE | 2018-01-16 11:24 | P.CNPUL ---
History of Present Illness Consult date: 01/16/18 Requesting physician: Paulette Dsouza Chief complaint: Inability to void, weakness History of present illness: This is a very pleasant 67-year-old gentleman who follows with Dr. Perez as his primary care physician. He has a history of coronary artery disease with previous coronary artery bypass grafting in 2007 and prior to that multiple stent placements, peripheral vascular disease with previous fem-pop bypass, colon cancer with previous resection, anxiety/depression, previous alcoholism, hyperlipidemia, hypertension, diabetes mellitus, atrial fibrillation anticoagulated with Xarelto and rate controlled with Tikosyn. He also has a history of obstructive sleep apnea utilizing CPAP in the outpatient setting and severe Gold stage III chronic obstructive pulmonary disease with an FEV1 value of 40% of predicted. He is maintained on Symbicort and albuterol. He follows with Dr. Velazquez in our office for the same. He is recently and [facility] for approximately 10 days being treated for CHF exacerbations and received aggressive diuretics. He was discharged home on 01/11/2018 with Bumex and Aldactone. On Sunday he wasn't making any urine at all and had developed progressive weakness. He was seen by his PCP and labs were drawn. He had a BUN of 100 and a creatinine of 9.8. He was directed to the emergency room 01/14 for the same. He has received urgent hemodialysis catheter placement yesterday and received ultrafiltration. He is again receiving hemodialysis today with the plans for 2 L to be removed tolerated. His chest x-ray reveals cardiomegaly with mild to moderate diffuse bilateral interstitial edema secondary to fluid volume overload. He has continued respiratory distress and and A team was called this morning where he received 100 mg of IV Lasix and has been placed on BiPAP 16/8 and 50% FiO2. He is seen this morning in consultation on the selective care unit. Dialysis is in progress. Labs reveal sodium 132, potassium 6.9, chloride 90, BUN 92, creatinine 9.77. Arterial blood gases prior to BiPAP revealed a PaO2 of 73, pCO2 74, pH 7.11 on 40% FiO2. Review of Systems ROS unobtainable: due to mental status Past Medical History Past Medical History: Atrial Fibrillation, Atrial Flutter, Coronary Artery Disease (CAD), Cancer, Heart Failure, COPD, Diabetes Mellitus, GERD/Reflux, GI Bleed, Hearing Disorder / Deafness, Hyperlipidemia, Hypertension, Myocardial Infarction ([place]), Sleep Apnea/CPAP/BIPAP, Vascular Disorder Additional Past Medical History / Comment(s): Pt states he was just discharged from [facility] on Sunday, January 11, 2018 where he was treated for Afib RVR/CHF and exacerbation of his COPD. 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 Last Myocardial Infarction Date:: 1997 History of Any Multi-Drug Resistant Organisms: None Reported Past Surgical History: Back Surgery, Bowel Resection, Cardiac Ablation, Coronary Bypass/CABG, Heart Catheterization, Heart Catheterization With Stent, Joint Replacement, Orthopedic Surgery Additional Past Surgical History / Comment(s): FAVIAN, cardiac ablation, several cardiac caths, PCI with stents-total of 2007 CABG 3 vessel, 14 inches small bowel removed for cancerous tumor, partial L knee replacement, R leg vascular surgery, EGD/colonoscopy, endocapsule, L toe middle toe amp, low back fusion, bilateral cataract removals. Past Anesthesia/Blood Transfusion Reactions: No Reported Reaction Date of Last Stent Placement:: 1997 Smoking Status: Former smoker - Past Family History Father Family Medical History: Chest Pain / Angina, Coronary Artery Disease (CAD), Myocardial Infarction ([place]) Additional Family Medical History / Comment(s): Father of a [place] at the age of 54yrs. Brother(s) Family Medical History: Chest Pain / Angina, Coronary Artery Disease (CAD), Myocardial Infarction ([place]) Additional Family Medical History / Comment(s): Brother had a [place] at the age of 58 yrs. He is living. Son(s) Family Medical History: Musculoskeletal Disorder Mother Family Medical History: Vascular Disorder Additional Family Medical History / Comment(s): of brain aneurysm at age 34 Medications and Allergies Home Medications Medication Instructions Recorded Confirmed Type Budesonide-Formot 160-4.5 Mcg 2 puff INHALATION RT-BID 12/26/13 01/14/18 History [Symbicort 160-4.5 Mcg Inhaler] Rivaroxaban [Xarelto] 20 mg PO DAILY #0 06/08/15 01/14/18 Rx Albuterol Inhaler [Ventolin Hfa 2 puff INHALATION RT-Q4H PRN 11/11/15 01/14/18 History Inhaler] Dofetilide 500 mcg PO BID 06/08/17 01/14/18 History Pregabalin [Lyrica] 150 mg PO BID 06/08/17 01/14/18 History metFORMIN HCL 1,000 mg PO BID 06/08/17 01/14/18 History Pantoprazole [Protonix] 40 mg PO DAILY #30 tablet.dr 06/23/17 01/14/18 Rx Ferrous Sulfate [Feosol] 325 mg PO SA 11/12/17 01/14/18 History rOPINIRole HCL [Requip] 1 mg PO HS 11/12/17 01/14/18 History Insulin Detemir [Levemir] 10 unit SQ HS #2 syr 11/20/17 01/14/18 Rx Losartan [Cozaar] 50 mg PO DAILY #30 tab 11/20/17 01/14/18 Rx Albuterol Nebulized [Ventolin 2.5 mg INHALATION RT-Q4H PRN 01/14/18 01/14/18 History Nebulized] Budesonide [Pulmicort] 1 mg INHALATION RT-DAILY 01/14/18 01/14/18 History Bumetanide [BUMEX] 1 mg PO BID 01/14/18 01/14/18 History Ergocalciferol (Vitamin D2) 50,000 unit PO Q7D 01/14/18 01/14/18 History [Vitamin D2] Methocarbamol [Robaxin-750] 750 mg PO TID PRN 01/14/18 01/14/18 History Metoprolol Succinate (ER) [Toprol 50 mg PO DAILY 01/14/18 01/14/18 History Xl] Naloxone HCl [Narcan] 4 mg NASAL DIRECTED PRN 01/14/18 01/14/18 History Simvastatin 40 mg PO HS 01/14/18 01/14/18 History Spironolactone [Aldactone] 25 mg PO BID 01/14/18 01/14/18 History guaiFENesin 400 mg PO TID PRN 01/14/18 01/14/18 History oxyCODONE HCL [Roxicodone] 5 mg PO DAILY@1200 01/14/18 01/14/18 History oxyCODONE HCL [Roxicodone] 20 mg PO BID@08,22 01/14/18 01/14/18 History rOPINIRole HCL [Requip] 0.5 mg PO HS 01/14/18 01/14/18 History Allergies Allergy/AdvReac Type Severity Reaction Status Date / Time No Known Allergies Allergy Verified 01/14/18 20:08 Physical Exam Vitals: Vital Signs Temp Pulse Pulse Resp BP BP Pulse Ox 01/16/18 10:13 67 18 123/75 91 L 01/16/18 09:25 116 H 01/16/18 09:05 134 H 92 L 01/16/18 08:00 97.6 F 93 18 137/76 95 01/16/18 07:30 18 131/76 90 L 01/16/18 04:00 98.4 F 97 18 151/66 94 L 01/16/18 00:00 98.7 F 102 H 20 142/84 63 L 01/15/18 20:00 97.5 F L 88 18 128/79 95 01/15/18 16:00 20 01/15/18 15:20 97.7 F 93 20 127/86 93 L 01/15/18 15:00 126 H 20 130/94 91 L 01/15/18 14:45 128 H 20 119/71 90 L 01/15/18 14:32 97.1 F L 102 H 20 119/71 94 L 01/15/18 13:16 112 H 20 109/65 95 01/15/18 11:48 97.8 F 84 20 119/62 96 Intake and Output 01/15/18 01/16/18 01/16/18 22:59 06:59 14:59 Output Total 90 450 Balance -90 -450 Output: Urine 90 450 Other: Voiding Method Indwelling Catheter Indwelling Catheter Weight 121.5 kg - Constitutional General appearance: obese - EENT Eyes: EOMI ENT: hearing grossly normal Ears: bilateral: normal - Neck Neck: normal ROM Carotids: bilateral: upstroke normal Thyroid: bilateral: normal size - Respiratory Respiratory: bilateral: rales - Cardiovascular Rhythm: irregularly irregular Heart sounds: normal: S1, S2 - Gastrointestinal General gastrointestinal: distended, normal bowel sounds - Integumentary Integumentary: normal - Neurologic Altered mental status - Musculoskeletal Musculoskeletal: generalized weakness - Psychiatric Lethargic Results - Laboratory Findings CBC and BMP: 01/15/18 06:53 01/16/18 05:37 ABG ABG pH 7.11 (7.35-7.45) L* 01/16/18 08:04 ABG pCO2 74 mmHg (35-45) H* 01/16/18 08:04 ABG pO2 73 mmHg (83-108) L 01/16/18 08:04 ABG O2 Saturation 90.7 % (94-97) L 01/16/18 08:04 PT/INR, D-dimer PT 10.7 sec (9.0-12.0) 01/14/18 19:35 INR 1.1 (<1.2) 01/14/18 19:35 Abnormal lab findings: Abnormal Labs 01/14/18 01/14/18 01/14/18 19:30 19:35 19:35 WBC 12.2 H RDW 16.1 H Neutrophils # 9.0 H ABG pH ABG pCO2 ABG pO2 ABG Total CO2 ABG O2 Saturation Sodium 131 L Potassium Chloride 83 L BUN 106 H* Creatinine 9.40 H* Glucose 111 H POC Glucose (mg/dL) 119 H Calcium Phosphorus Magnesium AST 104 H Total Protein 6.2 L Urine Protein Urine Blood Urine WBC Amorphous Sediment Hyaline Casts Urine Mucus Hep C IgG Ab 01/15/18 01/15/18 01/15/18 06:53 06:53 06:53 WBC 11.4 H RDW 16.4 H Neutrophils # 9.0 H ABG pH ABG pCO2 ABG pO2 ABG Total CO2 ABG O2 Saturation Sodium 130 L Potassium Chloride 84 L BUN 113 H* Creatinine 10.30 H* Glucose 121 H POC Glucose (mg/dL) Calcium Phosphorus 14.4 H* Magnesium 2.4 H AST Total Protein Urine Protein Urine Blood Urine WBC Amorphous Sediment Hyaline Casts Urine Mucus Hep C IgG Ab Reactive H 01/15/18 01/15/18 01/15/18 13:06 16:53 20:49 WBC RDW Neutrophils # ABG pH ABG pCO2 ABG pO2 ABG Total CO2 ABG O2 Saturation Sodium Potassium Chloride BUN Creatinine Glucose POC Glucose (mg/dL) 178 H 152 H Calcium Phosphorus Magnesium AST Total Protein Urine Protein 2+ H Urine Blood Moderate H Urine WBC 6 H Amorphous Sediment Rare H Hyaline Casts 4 H Urine Mucus Rare H Hep C IgG Ab 01/16/18 01/16/18 01/16/18 05:37 05:59 08:04 WBC RDW Neutrophils # ABG pH 7.11 L* ABG pCO2 74 H* ABG pO2 73 L ABG Total CO2 26 H ABG O2 Saturation 90.7 L Sodium 132 L Potassium 6.9 H* Chloride 90 L BUN 92 H* Creatinine 9.77 H* Glucose 152 H POC Glucose (mg/dL) 251 H Calcium 7.9 L Phosphorus 11.9 H* Magnesium AST Total Protein Urine Protein Urine Blood Urine WBC Amorphous Sediment Hyaline Casts Urine Mucus Hep C IgG Ab - Diagnostic Findings Chest x-ray: image reviewed Assessment and Plan Assessment: Impression: #1 Oliguria with acute kidney injury secondary to acute tubular necrosis secondary to hypotension and diuretics. Suspect cardiorenal syndrome. #2 Acute on chronic diastolic congestive heart failure with significant fluid volume overload. #3 Severe pulmonary hypertension. #4 Hypotension secondary to hypovolemia. #5 Acute hypercapnic respiratory failure continue to severe fluid volume overload. #6 Acute hypoxic respiratory failure secondary to severe fluid volume overload from diastolic congestive heart failure and acute renal failure. #7 Anasarca. #8 Hyperkalemia. #9 Diabetes mellitus. #10 Atrial fibrillation, anticoagulated with Xarelto. On Tikosyn. Previous ablation. #11 Obstructive sleep apnea intolerant to utilizing CPAP in the outpatient setting. #12 Chronic obstructive pulmonary disease, oxygen dependent, with an FEV1 value of 40% of predicted. #13 Previous smoking history. #14 Coronary artery disease with multiple stent placements and subsequent coronary artery bypass grafting 2007. #15 History of colon cancer with colectomy. #16 History of anxiety/depression. #17 Poor overall functional performance based on the above-mentioned multiple comorbidities. Plan: The patient was seen and evaluated by Dr. Olea. Chest x-ray, ABGs, labs all reviewed. Continue with BiPAP support. Continue with hemodialysis in a effort to decrease fluid volume overload. DC IV fluids. Transfer to the intensive care unit once a bed is available. The patient's overall prognosis remains quite poor and guarded at this point. We will continue to follow and make further recommendations based on his clinical status. I, the cosigning physician, performed a history & physical examination of the patient. Lungs sounds crackles in the posterior bases Maintaining good O2 saturations in the 90s on 50% FiO2 on the BiPAP. I discussed the assessment and plan of care with my nurse practitioner, Peyton Watts. I attest to the above consultation as dictated by her. Time with Patient: Greater than 30
[2018-01-16 11:39] LABS: Glucose,Whole Blood 119 mg/dL (75-99)
[2018-01-16] MEDS: METOPROLOL TARTRATE 25 MG TAB PO SCH (12:05)
[2018-01-16] MEDS: INSULIN ASPART 100 UNIT/ML 1 ML 10 ML VIAL SQ SCH ×3 (12:07→21:24)
[2018-01-16] MEDS: METOPROLOL SUCCINATE (ER) 50 MG TAB.ER.24H PO SCH (12:47)
[2018-01-16 13:41] LABS: Glucose,Whole Blood 117 mg/dL (75-99)
[2018-01-16 15:01] LABS: ABG Base Excess -3.1 mmol/L; ABG HCO3 26 mmol/L (21-25); ABG PO2 78 mmHg (83-108); ABG TCO2 28 mmol/L (19-24)
[2018-01-16 15:05] LABS: ABG PCO2 74 mmHg (35-45); ABG PH 7.15 (7.35-7.45)
[2018-01-16] MEDS ORDERED: SODIUM CHLORIDE 0.9% 1,000 ML IV ONE (15:51)
[2018-01-16] MEDS ORDERED: NOREPINEPHRINE 4 MG in DEXTROSE 5% IN WATER 250 ML IV SCH ×2 (16:00)
--- NOTE | 2018-01-16 16:06 | XR ---
EXAMINATION TYPE: XR chest 1V portable DATE OF EXAM: 01/16/2018 COMPARISON: Prior chest 01/16/2018 and earlier time HISTORY: Status post intubation TECHNIQUE: Single frontal view of the chest is obtained. FINDINGS: Endotracheal tube and NG tube have been placed in the interval and are overlying appropria te positions, patient is rotated. Caron not well seen. IMPRESSION: No evident complication status post intubation. Exam somewhat limited by technique.
[2018-01-16] MEDS: PROPOFOL 1,000 MG in EMPTY BAG 1 BAG IV SCH ×2 (16:12→22:26)
[2018-01-16 16:13] LABS: ABG Base Excess -4.7 mmol/L; ABG HCO3 23 mmol/L (21-25); ABG Oxygen Saturation 98.8 % (94-97); ABG PCO2 58 mmHg (35-45); ABG PH 7.21 (7.35-7.45); ABG PO2 140 mmHg (83-108); ABG TCO2 25 mmol/L (19-24)
[2018-01-16 16:32] LABS: Calcium 7.9 mg/dL (8.4-10.2); Magnesium 2.2 mg/dL (1.6-2.3); Total Bilirubin 0.6 mg/dL (0.2-1.3); Total Protein 6.2 g/dL (6.3-8.2)
[2018-01-16 16:33] VITALS: BP 114/63
[2018-01-16 16:36] LABS: Phosphorus 10.7 mg/dL (2.5-4.5)
[2018-01-16 17:25] LABS: Hemoglobin A1C 7.8 % (4.0-6.0)
[2018-01-16 17:58] LABS: Glucose,Whole Blood 133 mg/dL (75-99)
[2018-01-16] MEDS ORDERED: INSULIN REGULAR 100 UNIT/ML VIAL IV ONE (19:25)
[2018-01-16] MEDS ORDERED: DEXTROSE 50%-WATER 50 ML SYRINGE IVP STA (19:32)
[2018-01-16 20:30] LABS: Glucose,Whole Blood 102 mg/dL (75-99)
[2018-01-16] MEDS ORDERED: CHLORHEXIDINE GLUCONATE 15 ML CUP MUCOUS MEM SCH (21:00)
[2018-01-16 23:50] LABS: Glucose,Whole Blood 91 mg/dL (75-99)
[2018-01-17 00:37] VITALS: TEMP 99.7
[2018-01-17 02:30] VITALS: RESP 21
[2018-01-17 03:33] VITALS: PULSE 77
[2018-01-17] MEDS ORDERED: PREGABALIN 75 MG CAP PO SCH (09:00)
--- NOTE | 2018-01-17 10:27 | ECHOF ---
Referral Reason:CHF MEASUREMENTS -------- HEIGHT: 180.3 cm WEIGHT: 121.1 kg BP: 142/84 RVIDd: 3.5 cm (< 3.3) IVSd: 1.2 cm (0.6 - 1.1) LVIDd: 3.7 cm (3.9 - 5.3) LVPWd: 1.3 cm (0.6 - 1.1) IVSs: 1.7 cm LVIDs: 2.7 cm LVPWs: 1.7 cm Ao Diam: 3.5 cm (2.0 - 3.7) AV Cusp: 2.6 cm (1.5 - 2.6) LA Diam: 6.0 cm (2.7 - 3.8) MV EXCURSION: 24.317 mm (> 18.000) MV EF SLOPE: 159 mm/s (70 - 150) EPSS: 0.6 cm MV E Valdemar: 1.06 m/s MV DecT: 215 ms MV A Valdemar: 0.30 m/s MV E/A Ratio: 3.54 RAP: 5.00 mmHg RVSP: 25.35 mmHg FINDINGS -------- Resting tachycardia (HR>100bpm). This was a technically difficult study with suboptimal views. The left ventricular size is normal. There is mild concentric left ventricular hypertrophy. Overa ll left ventricular systolic function is normal with, an EF between 55 - 60 %. The right ventricle is normal in size and function. The left atrium is markedly dilated. The right atrium was not well visualized. Lumason used The aortic valve was not well visualized. Mild mitral regurgitation is present. Mild tricuspid regurgitation present. The right ventricular systolic pressure, as measured by Doppl er, is 25.35mmHg. The pulmonic valve was not well visualized. CONCLUSIONS -------- 1. Resting tachycardia (HR>100bpm). 2. This was a technically difficult study with suboptimal views. 3. The left ventricular size is normal. 4. There is mild concentric left ventricular hypertrophy. 5. Overall left ventricular systolic function is normal with, an EF between 55 - 60 %. 6. The right ventricle is normal in size and function. 7. The left atrium is markedly dilated. 8. The right atrium was not well visualized. 9. Lumason used 10. The aortic valve was not well visualized. 11. Mild mitral regurgitation is present. 12. Mild tricuspid regurgitation present. 13. The right ventricular systolic pressure, as measured by Doppler, is 25.35mmHg. 14. The pulmonic valve was not well visualized. [employer] CLERK: rIais Jimenez RDCS
--- NOTE | 2018-01-17 14:30 | P.DS ---
Providers Date of admission: 01/14/18 21:23 Expected date of discharge: 01/16/18 Attending physician: Paulette Dsouza Consults: 01/14/18 20:53 Consult Physician Stat Consulting Provider: Prince Nelson Consult Reason/Comments: acute renal failure Do you want consulting provider notified?: Already Contacted 01/15/18 09:50 Consult Physician Routine Consulting Provider: Héctor Olea Consult Reason/Comments: pulmonary htn Do you want consulting provider notified?: Yes Consult Physician Routine Consulting Provider: Olvin Justin Consult Reason/Comments: pulmonary htn Do you want consulting provider notified?: Yes 01/15/18 12:11 Consult Physician Routine Consulting Provider: Chase Lui Consult Reason/Comments: dialysis catheter placement Do you want consulting provider notified?: Yes Primary care physician: Paulette Dsouza [facility] Course: 67-year-old male one of Dr. Dsouza's patient who seen in October for severe dyspnea and shortness of breath and respiratory failure had a heart catheter that time patient was diagnosed with pulmonary hypertension, patient is known to have A. fib with RVR has been on Tikosyn along with anticoagulation. Patient was admitted to [facility] for 10 days was discharged this past Sunday for aggressive diuretic management secondary to anasarca. According to him he ended up having catheter but from his neck down to the heart chamber to check the pressure in his heart most likely [place] catheter and according to the reading was giving IV diuretics in the larger dose. Patient was sent home on Sunday to be started on a Bumex 1 mg twice a day along with Aldactone and other medication were changed at [facility]. Patient was in to see Dr. Dsouza in the office in 01-14 and complain has not made any urine since Sunday, patient was sent for lab result came back with acute kidney failure with creatinine of 9.8 and bun over 100. Patient was sent to the emergency department and started on hydration after talking to nephrology will be hospitalized for acute kidney failure secondary to the nephrotoxicity of diuretics and some of his heart medication. His last creatinine from November 22 was 1.08 only, I had long discussion with Dr. Nelson patient will be watch for at least another 24 hours if his creatinine remain high or higher might need to go on hemodialysis specially with his GFR being less than 5. 7/18: Yesterday, patient was seen by Dr. Lui and right-sided dialysis catheter was placed into the right IJ and underwent first dialysis treatment yesterday. Nephrology has added in Renvela. Mcgill catheter for strict I&O. He has had 450 mL out overnight. He was given Lasix 100 mg IV push this morning. He has also been seen by Dr. Justin and echocardiogram has been ordered. This morning, A-Team was called for mental status changes. Patient was seen by Dr. Blanco and placed on BiPAP and will be transferred to the intensive care unit once a bed is available. He has been ordered for urgent echocardiogram. Subsequently, patient was transferred into the intensive care unit and required intubation. He was then transferred to [facility]. Discharge diagnoses: 1. Acute oliguric kidney failure secondary to ATN secondary to hypotension and diuretics, possible cardiorenal syndrome. 2. Acute hypercapnic and hypoxic respiratory failure. 3. Metabolic encephalopathy most likely secondary to uremia (uremic encephalopathy) and possible hypoxic encephalopathy. 4. Anasarca: 5. Pulmonary hypertension 6. Acute on chronic diastolic heart failure. 7. Paroxysmal atrial fibrillation presenting with controlled rate, currently RVR. 8. Restless leg syndrome 9. Hyperlipidemia 10. Diabetes: Type II 11. Chronic pain syndrome 12. Advance COPD 13. Electrolyte imbalance: With a phosphorus been high Impression and plan of care have been directed as dictated by the signing physician. Larissa Warner nurse practitioner acting as scribe for signing physician. Patient Condition at Discharge: Undetermined Plan - Discharge Summary Discharge Rx Participant: No New Discharge Prescriptions: No Action Budesonide-Formot 160-4.5 Mcg [Symbicort 160-4.5 Mcg Inhaler] 2 puff INHALATION RT-BID Rivaroxaban [Xarelto] 20 mg PO DAILY #0 Albuterol Inhaler [Ventolin Hfa Inhaler] 2 puff INHALATION RT-Q4H PRN PRN Reason: Shortness Of Breath Dofetilide 500 mcg PO BID metFORMIN HCL 1,000 mg PO BID Pregabalin [Lyrica] 150 mg PO BID Pantoprazole [Protonix] 40 mg PO DAILY #30 tablet. Ferrous Sulfate [Feosol] 325 mg PO SA rOPINIRole HCL [Requip] 1 mg PO HS Insulin Detemir [Levemir] 10 unit SQ HS #2 syr Losartan [Cozaar] 50 mg PO DAILY #30 tab oxyCODONE HCL [Roxicodone] 5 mg PO DAILY@1200 Naloxone HCl [Narcan] 4 mg NASAL DIRECTED PRN PRN Reason: OVERDOSE oxyCODONE HCL [Roxicodone] 20 mg PO BID@ Methocarbamol [Robaxin-750] 750 mg PO TID PRN PRN Reason: Muscle Spasm rOPINIRole HCL [Requip] 0.5 mg PO HS Ergocalciferol (Vitamin D2) [Vitamin D2] 50,000 unit PO Q7D guaiFENesin 400 mg PO TID PRN PRN Reason: Congestion Metoprolol Succinate (ER) [Toprol Xl] 50 mg PO DAILY Budesonide [Pulmicort] 1 mg INHALATION RT-DAILY Albuterol Nebulized [Ventolin Nebulized] 2.5 mg INHALATION RT-Q4H PRN PRN Reason: Shortness Of Breath Spironolactone [Aldactone] 25 mg PO BID Simvastatin 40 mg PO HS Bumetanide [BUMEX] 1 mg PO BID Discharge Medication List Budesonide-Formot 160-4.5 Mcg [Symbicort 160-4.5 Mcg Inhaler] 2 puff INHALATION RT-BID 12/26/13 [History] Rivaroxaban [Xarelto] 20 mg PO DAILY #0 06/08/15 [Rx] Albuterol Inhaler [Ventolin Hfa Inhaler] 2 puff INHALATION RT-Q4H PRN 11/11/15 [ History] Dofetilide 500 mcg PO BID 06/08/17 [History] Pregabalin [Lyrica] 150 mg PO BID 06/08/17 [History] metFORMIN HCL 1,000 mg PO BID 06/08/17 [History] Pantoprazole [Protonix] 40 mg PO DAILY #30 tablet.dr 06/23/17 [Rx] Ferrous Sulfate [Feosol] 325 mg PO SA 11/12/17 [History] rOPINIRole HCL [Requip] 1 mg PO HS 11/12/17 [History] Insulin Detemir [Levemir] 10 unit SQ HS #2 syr 11/20/17 [Rx] Losartan [Cozaar] 50 mg PO DAILY #30 tab 11/20/17 [Rx] Albuterol Nebulized [Ventolin Nebulized] 2.5 mg INHALATION RT-Q4H PRN 01/14/18 [ History] Budesonide [Pulmicort] 1 mg INHALATION RT-DAILY 01/14/18 [History] Bumetanide [BUMEX] 1 mg PO BID 01/14/18 [History] Ergocalciferol (Vitamin D2) [Vitamin D2] 50,000 unit PO Q7D 01/14/18 [History] Methocarbamol [Robaxin-750] 750 mg PO TID PRN 01/14/18 [History] Metoprolol Succinate (ER) [Toprol Xl] 50 mg PO DAILY 01/14/18 [History] Naloxone HCl [Narcan] 4 mg NASAL DIRECTED PRN 01/14/18 [History] Simvastatin 40 mg PO HS 01/14/18 [History] Spironolactone [Aldactone] 25 mg PO BID 01/14/18 [History] guaiFENesin 400 mg PO TID PRN 01/14/18 [History] oxyCODONE HCL [Roxicodone] 5 mg PO DAILY@1200 01/14/18 [History] oxyCODONE HCL [Roxicodone] 20 mg PO BID@08,22 01/14/18 [History] rOPINIRole HCL [Requip] 0.5 mg PO HS 01/14/18 [History] Follow up Appointment(s)/Referral(s): Paulette Dsouza MD [Primary Care Provider] - 01/24/18 11:30 am ( with Valeri ENCISO) Discharge Disposition: [facility]
[2018-01-18] MEDS ORDERED: RIVAROXABAN 20 MG TAB PO SCH (09:00)
--- NOTE | 2018-01-18 14:22 | IR ---
Fluoroscopy HISTORY: Dialysis catheter placement 0.7 minutes fluoroscopy time supplied to the referring clinician. 140 intraoperative C-arm images do cument the procedure. See dictated report from vascular surgery.
[2018-01-19] MEDS ORDERED: FERROUS SULFATE 325 MG TAB PO SCH (09:00)
[2018-01-21 06:13] LABS: ABG PCO2 74 mmHg (35-45)
[2018-01-21] MEDS ORDERED: ERGOCALCIFEROL 50,000 UNIT CAP PO SCH (09:00)
== END 2018-01-17 03:45 | disposition short-term general hospital (02) | DRG 673 ==
LOC: EC 17:51 → 4MS4W 21:23 → 6SEL 01-15 10:14 → 6ICU 01-16 13:39
PROVIDERS: ADMIT Internal Medicine; ATTEND Internal Medicine
PROC: 0JH63XZ Insertion of Tunneled Vascular Access Device into Chest Subcutaneous Tissue and Fascia, Percutaneous Approach (ICD-10-PCS; principal; 2018-01-15 13:26)
PROC: 02HV33Z Insertion of Infusion Device into Superior Vena Cava, Percutaneous Approach (ICD-10-PCS; 2018-01-15 13:26)
PROC: 5A1D70Z Performance of Urinary Filtration, Intermittent, Less than 6 Hours Per Day (ICD-10-PCS; 2018-01-15 13:26)
PROC: 5A1935Z Respiratory Ventilation, Less than 24 Consecutive Hours (ICD-10-PCS; 2018-01-16)
PROC: 0BH17EZ Insertion of Endotracheal Airway into Trachea, Via Natural or Artificial Opening (ICD-10-PCS; 2018-01-16)
PROC: 5A09357 Assistance with Respiratory Ventilation, Less than 24 Consecutive Hours, Continuous Positive Airway Pressure (ICD-10-PCS; 2018-01-16)
DX: N17.0 Acute kidney failure with tubular necrosis (principal); G93.41 Metabolic encephalopathy; I50.33 Acute on chronic diastolic (congestive) heart failure; J96.21 Acute and chronic respiratory failure with hypoxia; J96.22 Acute and chronic respiratory failure with hypercapnia; E87.1 Hypo-osmolality and hyponatremia; I13.2 Hypertensive heart and chronic kidney disease with heart failure and with stage 5 chronic kidney disease, or end stage renal disease; E11.51 Type 2 diabetes mellitus with diabetic peripheral angiopathy without gangrene; E66.01 Morbid (severe) obesity due to excess calories; E78.5 Hyperlipidemia, unspecified; E83.39 Other disorders of phosphorus metabolism; E87.5 Hyperkalemia; G25.81 Restless legs syndrome; G47.33 Obstructive sleep apnea (adult) (pediatric); G89.4 Chronic pain syndrome; H91.90 Unspecified hearing loss, unspecified ear; I25.10 Atherosclerotic heart disease of native coronary artery without angina pectoris; I25.2 Old myocardial infarction; I27.20 Pulmonary hypertension, unspecified; I48.0 Paroxysmal atrial fibrillation; J44.9 Chronic obstructive pulmonary disease, unspecified; E11.40 Type 2 diabetes mellitus with diabetic neuropathy, unspecified; K59.00 Constipation, unspecified; I95.9 Hypotension, unspecified; R60.1 Generalized edema; R25.1 Tremor, unspecified; T50.2X5A Adverse effect of carbonic-anhydrase inhibitors, benzothiadiazides and other diuretics, initial encounter; T50.995A Adverse effect of other drugs, medicaments and biological substances, initial encounter; K21.9 Gastro-esophageal reflux disease without esophagitis; Z79.01 Long term (current) use of anticoagulants; Z79.4 Long term (current) use of insulin; Z79.51 Long term (current) use of inhaled steroids; Z79.899 Other long term (current) drug therapy; Z85.038 Personal history of other malignant neoplasm of large intestine; Z85.068 Personal history of other malignant neoplasm of small intestine; Z87.891 Personal history of nicotine dependence; Z99.81 Dependence on supplemental oxygen; Z96.652 Presence of left artificial knee joint; Z95.5 Presence of coronary angioplasty implant and graft; Z95.1 Presence of aortocoronary bypass graft; Z57.4 Occupational exposure to toxic agents in agriculture; Z98.42 Cataract extraction status, left eye; Z98.41 Cataract extraction status, right eye; Z96.1 Presence of intraocular lens; Z82.49 Family history of ischemic heart disease and other diseases of the circulatory system; Y92.009 Unspecified place in unspecified non-institutional (private) residence as the place of occurrence of the external cause
CPT/HCPCS: 36415; 36558; 36600; 51702; 51798; 71045; 76937; 77001; 80048; 80053; 80074; 81001; 82805; 83036; 83735; 84100; 84132; 85025; 85610; 85730; 86706; 87070; 87205; 90935; 93005; 93306; 94002; 94003; 94640; 94660; 96361; 96374; 99285

== ENCOUNTER 2018-02-11 19:43 | Inpatient (IN) | payer MEDICARE, OTHER ==
--- NOTE | 2018-02-11 21:23 | XR ---
EXAMINATION TYPE: XR chest 2V DATE OF EXAM: 02/11/2018 COMPARISON: 01/16/2018 HISTORY: Difficulty breathing. Fever TECHNIQUE: Frontal and lateral views of the chest are obtained. FINDINGS: Heart is enlarged. There is widening of the mediastinum. There is pulmonary vascular conge stion. There is slight blunting of the costophrenic angles. IMPRESSION: Congestive heart failure. Previous cardiac surgery. Widened mediastinum. This is similar to old exam. 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 Heart failure ap pears unchanged.
[2018-02-11 21:28] LABS: Anisocytosis Slight; Basophils % (A) 0 %; Eosinophils # (A) 0.2 k/uL (0-0.7); Eosinophils % (A) 2 %; HCT 34.4 % (39.0-53.0); HGB 10.8 gm/dL (13.0-17.5); Hypochromasia Slight; Lymphocytes # (A) 1.4 k/uL (1.0-4.8); Lymphocytes % (A) 16 %; MCH 28.3 pg (25.0-35.0); MCHC 31.5 g/dL (31.0-37.0); MCV 89.7 fL (80.0-100.0); Mean Platelet Volume 7.2; Monocytes # (A) 0.4 k/uL (0-1.0); Monocytes % (A) 4 %; Neutrophils # (A) 6.5 k/uL (1.3-7.7); Neutrophils % (A) 76 %; Platelet Count 244 k/uL (150-450); RBC 3.83 m/uL (4.30-5.90); RDW 16.8 % (11.5-15.5); WBC 8.6 k/uL (3.8-10.6)
[2018-02-11 21:41] LABS: Albumin 3.5 g/dL (3.5-5.0); Calcium 8.5 mg/dL (8.4-10.2); INR 1.2 (<1.2); Magnesium 1.8 mg/dL (1.6-2.3); Partial Thromboplastin Time 27.1 sec (22.0-30.0); Potassium 4.8 mmol/L (3.5-5.1); Prothrombin Time 11.3 sec (9.0-12.0); Total Bilirubin 0.5 mg/dL (0.2-1.3); Total Protein 5.9 g/dL (6.3-8.2)
[2018-02-11 21:46] LABS: Creatine Kinase 23 U/L (55-170)
[2018-02-11 21:56] LABS: Creatine Kinase MB 0.5 ng/mL (0.0-2.4); Troponin I <0.012 ng/mL (0.000-0.034)
[2018-02-11 22:33] LABS: ABG Base Excess 11.1 mmol/L; ABG HCO3 38 mmol/L (21-25); ABG PCO2 66 mmHg (35-45); ABG PH 7.38 (7.35-7.45); ABG PO2 46 mmHg (83-108)
[2018-02-11] MEDS ORDERED: METOPROLOL TARTRATE 50 MG TAB PO STA (22:48)
--- NOTE | 2018-02-11 22:56 | ED ---
Recheck HPI - General Chief Complaint: Recheck/Abnormal Lab/Rx Stated Complaint: Not Feeling Well Time Seen by Provider: 02/11/18 19:50 Source: patient Mode of arrival: EMS Limitations: no limitations - History of Present Illness Initial Comments: 68-year-old male patient with extensive past medical history presents to the emergency department today for complaints of dyspnea, confusion, weakness, and tremor. Patient was discharged approximate 2 weeks ago from [facility] after being transferred from this facility for acute respiratory failure with intubation and acute renal failure. Patient states that he has been doing well up until a few days ago when he started becoming more short of breath. Patient states that he feels like his swelling is starting to worsen as well. is reporting the patient has been increasingly confused and has been having a tremor which makes it difficult for him to eat and use his phone. Patient has been weighing himself daily and they haven't noticed any significant increase in weight. Patient has been taking his medications as directed. He denies any chest pain with this. Patient does have a chronic cough but states that his sputum is green to yellow in color. Patient has not urinated since this morning. Patient denies any recent rash, fever, chills, abdominal pain, nausea, vomiting, diarrhea, constipation, numbness, tingling, hematuria, dysuria, urinary urgency, urinary frequency, headache, visual changes , or any other complaints. - Related Data Home Medications Medication Instructions Recorded Confirmed Budesonide-Formot 160-4.5 Mcg 2 puff INHALATION RT-BID 12/26/13 02/11/18 [Symbicort 160-4.5 Mcg Inhaler] Albuterol Inhaler [Ventolin Hfa 2 puff INHALATION RT-QID PRN 11/11/15 02/11/18 Inhaler] Dofetilide 500 mcg PO BID 06/08/17 02/11/18 Pregabalin [Lyrica] 150 mg PO BID 06/08/17 02/11/18 metFORMIN HCL 1,000 mg PO BID 06/08/17 02/11/18 Ferrous Sulfate [Feosol] 325 mg PO SA 11/12/17 02/11/18 rOPINIRole HCL [Requip] 1 mg PO HS 11/12/17 02/11/18 Albuterol Nebulized [Ventolin 2.5 mg INHALATION RT-Q4H PRN 01/14/18 02/11/18 Nebulized] Budesonide [Pulmicort] 1 mg INHALATION RT-BID 01/14/18 02/11/18 Bumetanide [BUMEX] 1 mg PO BID 01/14/18 02/11/18 Ergocalciferol (Vitamin D2) 50,000 unit PO SA 01/14/18 02/11/18 [Vitamin D2] Methocarbamol [Robaxin-750] 750 mg PO TID PRN 01/14/18 02/11/18 Metoprolol Succinate (ER) [Toprol 50 mg PO DAILY 01/14/18 02/11/18 Xl] Naloxone HCl [Narcan] 4 mg NASAL DIRECTED PRN 01/14/18 02/11/18 Simvastatin 40 mg PO HS 01/14/18 02/11/18 Spironolactone [Aldactone] 25 mg PO BID 01/14/18 02/11/18 oxyCODONE HCL [Roxicodone] 15 mg PO DAILY@1200 01/14/18 02/11/18 oxyCODONE HCL [Roxicodone] 20 mg PO BID@08,22 01/14/18 02/11/18 rOPINIRole HCL [Requip] 0.5 mg PO HS 01/14/18 02/11/18 Previous Rx's Medication Instructions Recorded Rivaroxaban [Xarelto] 20 mg PO DAILY #0 06/08/15 Pantoprazole [Protonix] 40 mg PO DAILY #30 tablet. 06/23/17 Insulin Detemir [Levemir] 10 unit SQ HS #2 syr 11/20/17 Losartan [Cozaar] 50 mg PO DAILY #30 tab 11/20/17 Allergies Allergy/AdvReac Type Severity Reaction Status Date / Time No Known Allergies Allergy Verified 02/11/18 20:14 Review of Systems ROS Statement: Those systems with pertinent positive or pertinent negative responses have been documented in the HPI. ROS Other: All systems not noted in ROS Statement are negative. Past Medical History Past Medical History: Atrial Fibrillation, Atrial Flutter, Coronary Artery Disease (CAD), Cancer, Heart Failure, COPD, Diabetes Mellitus, GERD/Reflux, GI Bleed, Hearing Disorder / Deafness, Hyperlipidemia, Hypertension, Myocardial Infarction (IL), Renal Disease, Sleep Apnea/CPAP/BIPAP, Vascular Disorder Additional Past Medical History / Comment(s): Pt states he was just discharged from [facility] on Sunday, January 11, 2018 where he was treated for Afib RVR/CHF and exacerbation of his COPD. 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 kidney failure Last Myocardial Infarction Date:: 1997 History of Any Multi-Drug Resistant Organisms: None Reported Past Surgical History: Back Surgery, Bowel Resection, Cardiac Ablation, Coronary Bypass/CABG, Heart Catheterization, Heart Catheterization With Stent, Joint Replacement, Orthopedic Surgery Additional Past Surgical History / Comment(s): FAVIAN, cardiac ablation, several cardiac caths, PCI with stents-total of 2007 CABG 3 vessel, 14 inches small bowel removed for cancerous tumor, partial L knee replacement, R leg vascular surgery, EGD/colonoscopy, endocapsule, L toe middle toe amp, low back fusion, bilateral cataract removals. Past Anesthesia/Blood Transfusion Reactions: No Reported Reaction Date of Last Stent Placement:: 1997 Past Psychological History: No Psychological Hx Reported Smoking Status: Former smoker Past Alcohol Use History: Rare Past Drug Use History: Unable to Obtain - Past Family History Father Family Medical History: Chest Pain / Angina, Coronary Artery Disease (CAD), Myocardial Infarction (IL) Additional Family Medical History / Comment(s): Father of a IL at the age of 54yrs. Brother(s) Family Medical History: Chest Pain / Angina, Coronary Artery Disease (CAD), Myocardial Infarction (IL) Additional Family Medical History / Comment(s): Brother had a IL at the age of 58 yrs. He is living. Son(s) Family Medical History: Musculoskeletal Disorder Mother Family Medical History: Vascular Disorder Additional Family Medical History / Comment(s): of brain aneurysm at age 34 General Exam Limitations: no limitations General appearance: alert, in no apparent distress, other (This is a well- developed, obese adult male patient in no acute distress. Vital signs upon presentation are temperature 100.1F, pulse 93, respirations 16, blood pressure 136/66, pulse ox 93% on 2 L.) Eye exam: Present: normal appearance, PERRL, EOMI. Absent: scleral icterus, conjunctival injection, periorbital swelling ENT exam: Present: normal exam, normal oropharynx, mucous membranes moist Neck exam: Present: normal inspection. Absent: tenderness, meningismus, lymphadenopathy Respiratory exam: Present: decreased breath sounds (All lung mello), other ( Patient is tachypneic). Absent: normal lung sounds bilaterally, respiratory distress, wheezes, rales, rhonchi, stridor Cardiovascular Exam: Present: tachycardia, irregular rhythm, normal heart sounds. Absent: systolic murmur, diastolic murmur, rubs, gallop, clicks GI/Abdominal exam: Present: soft, distended, normal bowel sounds. Absent: tenderness, guarding, rebound, rigid Neurological exam: Present: alert, CN II-XII intact. Absent: oriented X3 ( Oriented 2) Psychiatric exam: Present: normal affect, normal mood Skin exam: Present: warm, dry, intact, normal color. Absent: rash Course Vital Signs 02/11/18 02/11/18 02/11/18 19:49 21:07 21:41 Temperature 100.1 F H 98.4 F Pulse Rate 93 90 98 Respiratory 16 16 22 Rate Blood Pressure 136/66 119/73 141/67 O2 Sat by Pulse 93 L 96 Oximetry 02/11/18 02/11/18 02/11/18 22:46 23:07 23:28 Temperature 98.4 F Pulse Rate 131 H 128 H 133 H Respiratory 22 24 24 Rate Blood Pressure 162/70 131/86 O2 Sat by Pulse 95 94 L 94 L Oximetry Medical Decision Making - Medical Decision Making 68-year-old male patient presents to the emergency department today with complaints of dyspnea, weakness, and confusion. Physical examination did reveal diminished breath sounds. Patient did have a resting tremor to his bilateral upper extremities. Labs reviewed and did show mildly decreased hemoglobin, elevated CO2 at 40, BNP of 1190. We did perform arterial blood gas which showed a pH of 7.38, pCO2 of 66, PaO2 of 46. Patient's EKG did show atrial fibrillation with rapid ventricular response at 110, patient did have heart rates in the 130s. Do believe the patient's dyspnea is multifactorial at this time including the caused by the A. fib, COPD, and CHF. Patient will be admitted to the hospital for further evaluation. We'll start Cardizem. Patient also had some urinary retention today with last urination early this morning. Bladder scan did show around 400 mL, we did insert a Mcgill catheter. Patient is aware of results and plan he agrees. - Lab Data Result diagrams: 02/11/18 21:12 02/11/18 21:12 Lab Results 02/11/18 02/11/18 02/11/18 Range/Units 21:12 21:12 21:12 WBC 8.6 (3.8-10.6) k/uL RBC 3.83 L (4.30-5.90) m/uL Hgb 10.8 L (13.0-17.5) gm/dL Hct 34.4 L (39.0-53.0) % MCV 89.7 (80.0-100.0) fL MCH 28.3 (25.0-35.0) pg MCHC 31.5 (31.0-37.0) g/dL RDW 16.8 H (11.5-15.5) % Plt Count 244 (150-450) k/uL Neutrophils % 76 % Lymphocytes % 16 % Monocytes % 4 % Eosinophils % 2 % Basophils % 0 % Neutrophils # 6.5 (1.3-7.7) k/uL Lymphocytes # 1.4 (1.0-4.8) k/uL Monocytes # 0.4 (0-1.0) k/uL Eosinophils # 0.2 (0-0.7) k/uL Basophils # 0.0 (0-0.2) k/uL Hypochromasia Slight Anisocytosis Slight PT 11.3 (9.0-12.0) sec INR 1.2 H (<1.2) APTT 27.1 (22.0-30.0) sec Sample Site ABG pH (7.35-7.45) ABG pCO2 (35-45) mmHg ABG pO2 (83-108) mmHg ABG HCO3 (21-25) mmol/L ABG O2 Saturation (94-97) % ABG Base Excess mmol/L Isra Test FiO2 % Sodium 141 (137-145) mmol/L Potassium 4.8 (3.5-5.1) mmol/L Chloride 96 L (98-107) mmol/L Carbon Dioxide 40 H* (22-30) mmol/L Anion Gap 5 mmol/L BUN 22 H (9-20) mg/dL Creatinine 1.00 (0.66-1.25) mg/dL Est GFR (CKD-EPI)AfAm 89 (>60 ml/min/1.73 sqM) Est GFR (CKD-EPI)NonAf 77 (>60 ml/min/1.73 sqM) Glucose 107 H (74-99) mg/dL Plasma Lactic Acid Barrett (0.7-2.0) mmol/L Calcium 8.5 (8.4-10.2) mg/dL Magnesium 1.8 (1.6-2.3) mg/dL Total Bilirubin 0.5 (0.2-1.3) mg/dL AST 16 L (17-59) U/L ALT 28 (21-72) U/L Alkaline Phosphatase 67 (38-126) U/L Total Creatine Kinase (55-170) U/L CK-MB (CK-2) (0.0-2.4) ng/mL CK-MB (CK-2) Rel Index Troponin I (0.000-0.034) ng/mL NT-Pro-B Natriuret Pep pg/mL Total Protein 5.9 L (6.3-8.2) g/dL Albumin 3.5 (3.5-5.0) g/dL 02/11/18 02/11/18 02/11/18 Range/Units 21:12 21:12 21:12 WBC (3.8-10.6) k/uL RBC (4.30-5.90) m/uL Hgb (13.0-17.5) gm/dL Hct (39.0-53.0) % MCV (80.0-100.0) fL MCH (25.0-35.0) pg MCHC (31.0-37.0) g/dL RDW (11.5-15.5) % Plt Count (150-450) k/uL Neutrophils % % Lymphocytes % % Monocytes % % Eosinophils % % Basophils % % Neutrophils # (1.3-7.7) k/uL Lymphocytes # (1.0-4.8) k/uL Monocytes # (0-1.0) k/uL Eosinophils # (0-0.7) k/uL Basophils # (0-0.2) k/uL Hypochromasia Anisocytosis PT (9.0-12.0) sec INR (<1.2) APTT (22.0-30.0) sec Sample Site ABG pH (7.35-7.45) ABG pCO2 (35-45) mmHg ABG pO2 (83-108) mmHg ABG HCO3 (21-25) mmol/L ABG O2 Saturation (94-97) % ABG Base Excess mmol/L Isra Test FiO2 % Sodium (137-145) mmol/L Potassium (3.5-5.1) mmol/L Chloride (98-107) mmol/L Carbon Dioxide (22-30) mmol/L Anion Gap mmol/L BUN (9-20) mg/dL Creatinine (0.66-1.25) mg/dL Est GFR (CKD-EPI)AfAm (>60 ml/min/1.73 sqM) Est GFR (CKD-EPI)NonAf (>60 ml/min/1.73 sqM) Glucose (74-99) mg/dL Plasma Lactic Acid Barrett 0.7 (0.7-2.0) mmol/L Calcium (8.4-10.2) mg/dL Magnesium (1.6-2.3) mg/dL Total Bilirubin (0.2-1.3) mg/dL AST (17-59) U/L ALT (21-72) U/L Alkaline Phosphatase (38-126) U/L Total Creatine Kinase 23 L (55-170) U/L CK-MB (CK-2) 0.5 (0.0-2.4) ng/mL CK-MB (CK-2) Rel Index 2.2 Troponin I <0.012 (0.000-0.034) ng/mL NT-Pro-B Natriuret Pep 1190 pg/mL Total Protein (6.3-8.2) g/dL Albumin (3.5-5.0) g/dL 02/11/18 Range/Units 22:20 WBC (3.8-10.6) k/uL RBC (4.30-5.90) m/uL Hgb (13.0-17.5) gm/dL Hct (39.0-53.0) % MCV (80.0-100.0) fL MCH (25.0-35.0) pg MCHC (31.0-37.0) g/dL RDW (11.5-15.5) % Plt Count (150-450) k/uL Neutrophils % % Lymphocytes % % Monocytes % % Eosinophils % % Basophils % % Neutrophils # (1.3-7.7) k/uL Lymphocytes # (1.0-4.8) k/uL Monocytes # (0-1.0) k/uL Eosinophils # (0-0.7) k/uL Basophils # (0-0.2) k/uL Hypochromasia Anisocytosis PT (9.0-12.0) sec INR (<1.2) APTT (22.0-30.0) sec Sample Site R radial ABG pH 7.38 (7.35-7.45) ABG pCO2 66 H (35-45) mmHg ABG pO2 46 L (83-108) mmHg ABG HCO3 38 H (21-25) mmol/L ABG O2 Saturation 81.0 L (94-97) % ABG Base Excess 11.1 mmol/L Isra Test Yes FiO2 21 % Sodium (137-145) mmol/L Potassium (3.5-5.1) mmol/L Chloride (98-107) mmol/L Carbon Dioxide (22-30) mmol/L Anion Gap mmol/L BUN (9-20) mg/dL Creatinine (0.66-1.25) mg/dL Est GFR (CKD-EPI)AfAm (>60 ml/min/1.73 sqM) Est GFR (CKD-EPI)NonAf (>60 ml/min/1.73 sqM) Glucose (74-99) mg/dL Plasma Lactic Acid Barrett (0.7-2.0) mmol/L Calcium (8.4-10.2) mg/dL Magnesium (1.6-2.3) mg/dL Total Bilirubin (0.2-1.3) mg/dL AST (17-59) U/L ALT (21-72) U/L Alkaline Phosphatase (38-126) U/L Total Creatine Kinase (55-170) U/L CK-MB (CK-2) (0.0-2.4) ng/mL CK-MB (CK-2) Rel Index Troponin I (0.000-0.034) ng/mL NT-Pro-B Natriuret Pep pg/mL Total Protein (6.3-8.2) g/dL Albumin (3.5-5.0) g/dL - EKG Data -: EKG Interpreted by Me EKG Comments: EKG obtained at 2025 shows atrial fibrillation with rapid ventricular response with ventricular rate of 110, QR synagogue 92, QT 336, QTc 454. No evidence of ST elevation or depression. - Radiology Data Radiology results: report reviewed, image reviewed Two-view x-ray of the chest is obtained. Heart is enlarged. There is widening of the mediastinum. There is pulmonary vascular congestion. There is slight blunting of the costophrenic angles. Impression by Dr. Argueta shows congestive heart failure. Previous cardiac surgery. Wide mediastinum. This is similar to old exam. This relates to lipomatosis evident on the chest computed tomography scan of 09/24/2017. Heart failure appears unchanged. Disposition Clinical Impression: Atrial fibrillation with RVR, Acute respiratory failure with hypoxia and hypercarbia, Urinary retention, CHF (congestive heart failure) Disposition: ADMITTED IP TO THIS [facility] Condition: Serious Referrals: Paulette Dsouza MD [Primary Care Provider] - 1-2 days Decision to Admit Reason: Admit from EC Decision Date: 02/11/18 Decision Time: 23:50
[2018-02-11] MEDS ORDERED: NALOXONE 0.4 MG/ML 1 ML VIAL IV PRN (23:10)
[2018-02-11] MEDS ORDERED: ACETAMINOPHEN TAB 325 MG TAB PO PRN (23:10)
[2018-02-11] MEDS ORDERED: METHOCARBAMOL 750 MG TAB PO PRN (23:13)
[2018-02-11 23:33] LABS: Appearance,Urine Clear (Clear); Bilirubin,Urine Negative (Negative); Blood,Urine Negative (Negative); Color,Urine Yellow; Glucose,Urine (UA) Negative (Negative); Ketones,Urine Negative (Negative); Leukocyte Esterase,Urine Negative (Negative); Nitrite,Urine Negative (Negative); Protein,Urine Negative (Negative); Specific Gravity,Urine 1.012 (1.001-1.035); Urobilinogen,Urine <2.0 mg/dL (<2.0)
[2018-02-12] MEDS: DILTIAZEM 50 MG in SODIUM CHLORIDE 0.9% 40 ML IV SCH ×2 (00:28→22:24)
[2018-02-12 02:09] VITALS: BMI 37.0
[2018-02-12 05:48] LABS: Glucose,Whole Blood 136 mg/dL (75-99)
[2018-02-12 06:31] LABS: Anisocytosis Slight; Basophils % (A) 0 %; Eosinophils # (A) 0.2 k/uL (0-0.7); Eosinophils % (A) 2 %; HCT 35.7 % (39.0-53.0); HGB 11.1 gm/dL (13.0-17.5); Hypochromasia Moderate; Lymphocytes # (A) 1.5 k/uL (1.0-4.8); Lymphocytes % (A) 15 %; MCH 28.2 pg (25.0-35.0); MCV 91.1 fL (80.0-100.0); Mean Platelet Volume 7.3; Monocytes # (A) 0.6 k/uL (0-1.0); Monocytes % (A) 6 %; Neutrophils # (A) 7.4 k/uL (1.3-7.7); Neutrophils % (A) 75 %; Platelet Count 230 k/uL (150-450); RBC 3.92 m/uL (4.30-5.90); RDW 16.7 % (11.5-15.5); WBC 9.8 k/uL (3.8-10.6)
[2018-02-12 06:47] LABS: Albumin 3.5 g/dL (3.5-5.0); Calcium 8.9 mg/dL (8.4-10.2); Potassium 4.5 mmol/L (3.5-5.1); Total Bilirubin 0.7 mg/dL (0.2-1.3); Total Protein 5.9 g/dL (6.3-8.2)
[2018-02-12] MEDS ORDERED: SYMBICORT 160-4.5 MCG INHALER INHALATION SCH (08:00)
[2018-02-12] MEDS ORDERED: METOPROLOL SUCCINATE (ER) 100 MG TAB.ER.24H PO SCH (09:00)
[2018-02-12] MEDS: PANTOPRAZOLE 40 MG TABLET PO SCH (09:29)
[2018-02-12] MEDS: BUMETANIDE 1 MG TAB PO SCH ×2 (09:29→20:23)
[2018-02-12] MEDS: metFORMIN 500 MG TAB PO SCH ×2 (09:30→21:09)
[2018-02-12] MEDS: LOSARTAN 50 MG TAB PO SCH (09:30)
[2018-02-12] MEDS: DOFETILIDE 500 MCG CAP PO SCH ×2 (09:30→22:24)
[2018-02-12] MEDS: SPIRONOLACTONE 25 MG TAB PO SCH ×2 (09:32→20:23)
[2018-02-12] MEDS: PREGABALIN 75 MG CAP PO SCH ×2 (09:42→21:09)
[2018-02-12] MEDS: BUDESONIDE 1 MG/2 ML NEBU INHALATION SCH ×2 (10:15→19:44)
[2018-02-12 11:02] LABS: ABG Base Excess 10.7 mmol/L; ABG HCO3 39 mmol/L (21-25); ABG Oxygen Saturation 84.8 % (94-97); ABG PH 7.33 (7.35-7.45); ABG PO2 55 mmHg (83-108)
[2018-02-12 11:07] LABS: ABG PCO2 76 mmHg (35-45)
[2018-02-12 11:41] LABS: Glucose,Whole Blood 138 mg/dL (75-99)
--- NOTE | 2018-02-12 11:47 | CT ---
EXAMINATION TYPE: CT brain wo con DATE OF EXAM: 02/12/2018 COMPARISON: Confusion HISTORY: headache and double vision CT DLP: 1275 mGycm Automated exposure control for dose reduction was used. FINDINGS: Intracranial atherosclerotic changes are noted. There is motion artifact which results in some limita tion with regard to assessment for acute hemorrhage. No obvious acute intraparenchymal hemorrhage or mass effect. Prominent cisterna magna noted. Periventricular low attenuation is nonspecific but most typical of remote microvascular ischemia. There is a ventricular dilation centrally greater than peripherally. Degenerative change in the diffe rential diagnosis although normal pressure hydrocephalus should also be considered. No midline shift. No mass effect. Calvarium intact. IMPRESSION: DEGENERATIVE CHANGE WITH A GREATER CENTRAL COMPONENT. NORMAL PRESSURE HYDROCEPHALUS IN THE DIFFERENTI AL DIAGNOSIS. ASSESSMENT FOR SUBTLE ACUTE HEMORRHAGE IS LIMITED DUE TO ARTIFACT. NO OBVIOUS SIZABLE A CUTE INTRAPARENCHYMAL HEMORRHAGE OR MASS EFFECT. IF SYMPTOMS PERSIST OR CONCERN FOR ACUTE ISCHEMIA CO NSIDER MRI.
--- NOTE | 2018-02-12 11:52 | CONS ---
CONSULTATION Mr. Styles is a 68-year-old gentleman who is seen for cardiac evaluation. This patient's previous records were reviewed. Patient was admitted in December over here with acute respiratory failure. Patient was intubated. Patient also had acute renal failure with a creatinine of 10. Dialysis was started over here and subsequently patient was transferred to the [facility]. Patient was then released from the [facility]. His renal function had normalized. Exact etiology of this patient's acute renal failure is unclear. Patient has a history of severe COPD, coronary artery bypass surgery, prior history of a CABG and stent, history of recurrent atrial fibrillation. Patient has a prior history of ablation and currently he is on Tikosyn. This patient has been getting increasingly confused and also been having tremor which makes him difficult to eat as well as uses his spoon and he was having some shortness of breath with some yellowish to green colored sputum. He denied any fever or chills. At present, patient is sitting in the chair. He is comfortable without any acute respiratory distress. HOME MEDICATIONS: Include the Symbicort, Ventolin, Tikosyn 500 mg b.i.d., Lyrica, Requip, Pulmicort inhaler, Bumex 1 mg b.i.d., vitamin D12, Robaxin, Aldactone 25 mg b.i.d., Xarelto 20 mg daily, Protonix, Levemir and Cozaar. PAST MEDICAL HISTORY: Includes a history of atrial fibrillation, atrial flutter, status post ablation, coronary artery bypass surgery. History of stent, history of pulmonary hypertension, severe COPD, type 2 diabetes with bilateral neuropathy and sleep apnea, history of bowel resection, back surgery, orthopedic surgery and joint replacement. PHYSICAL EXAMINATION: At present reveals a 68-year-old gentleman who is obesely-built, does not appear to be in any acute distress. In the emergency room, patient's oxygen saturation was 93%. Patient had a temperature of 100.1. Patient is afebrile, now blood pressure is 114/73 mmHg, respirations are not labored. HEENT examination is negative. Neck is supple. There is no significant increase in jugular venous pressure noted. Both the carotid pulses are noted. There is no bruit. HEART: First and second heart sounds are normal. Lung examination reveals bilateral diminished air entry. No significant rales or rhonchi are noted. Abdomen is negative. EXTREMITIES: There is a trace of leg edema. Patient's hemoglobin is 11.1, arterial blood gases shows pH is 7.3, pCO2 of 66, PO2 was 46. Patient's creatinine is 1.0, initial oxygen saturation in the emergency room was 81%. FINAL IMPRESSION: 1. This patient is admitted with symptoms of confusion and tremors and difficult to eat and generalized weakness and shortness of breath. Patient's chest x-ray does not show any evidence of any significant fluid overload. His proBNP level is only 1192. 2. Patient has a severe chronic obstructive pulmonary disease with hypoxia on room air in the blood gases done over here. 3. Atrial fibrillation. The rate at present appears to be controlled. RECOMMENDATIONS: I will increase the dose of Lopressor to 75 mg daily and discontinue the IV Cardizem, continue Xarelto. A Pulmonary consultation is requested. If patient persists to have confusion, Neuro consultation is suggested. MMODL / IJN: [id number] /
[2018-02-12] MEDS: ALBUTEROL NEBULIZED 2.5 MG/3 ML INHALATION PRN ×3 (11:58→19:44)
--- NOTE | 2018-02-12 12:53 | P.CNPUL ---
History of Present Illness Consult date: 02/12/18 Requesting physician: Stefani Foster Reason for consult: dyspnea Chief complaint: Shortness of breath History of present illness: This is a very pleasant 68-year-old gentleman who follows with Dr. Dsouza as his primary care physician. He has a history of coronary artery disease with previous coronary artery bypass grafting in 2007 and prior to that multiple stent placements, peripheral vascular disease with previous fem-pop bypass, colon cancer with previous resection, anxiety/depression, previous alcoholism, hyperlipidemia, hypertension, diabetes mellitus, atrial fibrillation anticoagulated with Xarelto and rate controlled with Tikosyn. He also has a history of obstructive sleep apnea utilizing CPAP in the outpatient setting and severe Gold stage III chronic obstructive pulmonary disease with an FEV1 value of 40% of predicted. He is maintained on Symbicort and albuterol. He follows with Dr. Velazquez in our office for the same. He was recently discharged from here on 01/16/2018 after being admitted again for acute renal failure. He presented to the emergency room again yesterday with generalized weakness and confusion. The patient's stated he was having tremors. He is also unable to use his phone. His chest x-ray showed evidence of congestive heart failure with previous cardiac surgery and a widened mediastinum. These were similar to the chest x-ray in December and relates to lipomatosis which was noted in the CAT scan of August 2017. He remains in atrial fibrillation current heart rate 110' s. Computed tomography scan of the brain reveals degenerative changes with a central component with normal pressure hydrocephalus in the differential. There was too much artifact to rule out subacute hemorrhage but no sizable intracranial hemorrhage or mass effect was noted. The patient was seen in consultation today on the selective care unit. He does remain somewhat confused however he has been still receiving his oxycodone 20 mg twice a day with 15 mg at noontime. Morning blood gases on 28% FiO2 revealed a pO2 of 55, pCO2 of 76 and a pH of 7.33. His narcotics have been discontinued. He is currently maintaining good O2 saturations in the low 90s on 2 L/m per nasal cannula. He's been afebrile. No tachycardia, no tachypnea. Hemodynamically stable. He is continued on Symbicort and albuterol. Review of Systems ROS unobtainable: due to mental status Past Medical History Past Medical History: Atrial Fibrillation, Atrial Flutter, Coronary Artery Disease (CAD), Cancer, Heart Failure, COPD, Diabetes Mellitus, GERD/Reflux, GI Bleed, Hearing Disorder / Deafness, Hyperlipidemia, Hypertension, Myocardial Infarction ([place]), Renal Disease, Sleep Apnea/CPAP/BIPAP, Vascular Disorder Additional Past Medical History / Comment(s): Pt states he was just discharged from [facility] on Sunday, January 11, 2018 where he was treated for Afib RVR/CHF and exacerbation of his COPD. 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 kidney failure Last Myocardial Infarction Date:: 1997 History of Any Multi-Drug Resistant Organisms: None Reported Past Surgical History: Back Surgery, Bowel Resection, Cardiac Ablation, Coronary Bypass/CABG, Heart Catheterization, Heart Catheterization With Stent, Joint Replacement, Orthopedic Surgery Additional Past Surgical History / Comment(s): FAVIAN, cardiac ablation, several cardiac caths, PCI with stents-total of 2007 CABG 3 vessel, 14 inches small bowel removed for cancerous tumor, partial L knee replacement, R leg vascular surgery, EGD/colonoscopy, endocapsule, L toe middle toe amp, low back fusion, bilateral cataract removals. Past Anesthesia/Blood Transfusion Reactions: No Reported Reaction Date of Last Stent Placement:: 1997 Past Psychological History: No Psychological Hx Reported Additional Psychological History / Comment(s): Pt resides with his spouse of 16 years. He has difficulty sleeping-gets maybe 3 hours per night. 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 Pt lives in single level home w/4 porch steps. No home care services. Has home 02 2 liters n/c which he now wears ATC. He has a glucometer. Smoking Status: Former smoker Past Alcohol Use History: Rare Additional Past Alcohol Use History / Comment(s): Pt started smoking in 1962 and quit in 2004. He is a recovering alcoholic and quit drinking in 1981 Past Drug Use History: Unable to Obtain Additional Drug Use History / Comment(s): remote history of trial of recreational drugs in 1970, none since - Past Family History Father Family Medical History: Chest Pain / Angina, Coronary Artery Disease (CAD), Myocardial Infarction ([place]) Additional Family Medical History / Comment(s): Father of a FL at the age of 54yrs. Brother(s) Family Medical History: Chest Pain / Angina, Coronary Artery Disease (CAD), Myocardial Infarction ([place]) Additional Family Medical History / Comment(s): Brother had a FL at the age of 58 yrs. He is living. Son(s) Family Medical History: Musculoskeletal Disorder Mother Family Medical History: Vascular Disorder Additional Family Medical History / Comment(s): of brain aneurysm at age 34 Medications and Allergies Home Medications Medication Instructions Recorded Confirmed Type Budesonide-Formot 160-4.5 Mcg 2 puff INHALATION RT-BID 12/26/13 02/11/18 History [Symbicort 160-4.5 Mcg Inhaler] Rivaroxaban [Xarelto] 20 mg PO DAILY #0 06/08/15 02/11/18 Rx Albuterol Inhaler [Ventolin Hfa 2 puff INHALATION RT-QID PRN 11/11/15 02/11/18 History Inhaler] Dofetilide 500 mcg PO BID 06/08/17 02/11/18 History Pregabalin [Lyrica] 150 mg PO BID 06/08/17 02/11/18 History metFORMIN HCL 1,000 mg PO BID 06/08/17 02/11/18 History Pantoprazole [Protonix] 40 mg PO DAILY #30 tablet. 06/23/17 02/11/18 Rx Ferrous Sulfate [Feosol] 325 mg PO SA 11/12/17 02/11/18 History rOPINIRole HCL [Requip] 1 mg PO HS 11/12/17 02/11/18 History Insulin Detemir [Levemir] 10 unit SQ HS #2 syr 11/20/17 02/11/18 Rx Losartan [Cozaar] 50 mg PO DAILY #30 tab 11/20/17 02/11/18 Rx Albuterol Nebulized [Ventolin 2.5 mg INHALATION RT-Q4H PRN 01/14/18 02/11/18 History Nebulized] Budesonide [Pulmicort] 1 mg INHALATION RT-BID 01/14/18 02/11/18 History Bumetanide [BUMEX] 1 mg PO BID 01/14/18 02/11/18 History Ergocalciferol (Vitamin D2) 50,000 unit PO SA 01/14/18 02/11/18 History [Vitamin D2] Methocarbamol [Robaxin-750] 750 mg PO TID PRN 01/14/18 02/11/18 History Metoprolol Succinate (ER) [Toprol 50 mg PO DAILY 01/14/18 02/11/18 History Xl] Naloxone HCl [Narcan] 4 mg NASAL DIRECTED PRN 01/14/18 02/11/18 History Simvastatin 40 mg PO HS 01/14/18 02/11/18 History Spironolactone [Aldactone] 25 mg PO BID 01/14/18 02/11/18 History oxyCODONE HCL [Roxicodone] 15 mg PO DAILY@1200 01/14/18 02/11/18 History oxyCODONE HCL [Roxicodone] 20 mg PO BID@01/14/18 02/11/18 History rOPINIRole HCL [Requip] 0.5 mg PO HS 01/14/18 02/11/18 History Allergies Allergy/AdvReac Type Severity Reaction Status Date / Time No Known Allergies Allergy Verified 02/11/18 20:14 Physical Exam Vitals: Vital Signs Temp Pulse Pulse Resp BP BP Pulse Ox 02/12/18 12:11 92 02/12/18 11:58 94 02/12/18 08:00 98.9 F 92 18 114/73 92 L 02/12/18 03:25 97.9 F 82 17 132/78 94 L 02/12/18 02:31 97.6 F 88 19 141/63 92 L 02/12/18 00:51 86 20 132/95 94 L 02/12/18 00:43 97.6 F 87 18 141/63 92 L 02/12/18 00:26 99.1 F 120 H 22 140/90 94 L 02/11/18 23:47 122 H 22 127/78 96 02/11/18 23:28 98.4 F 133 H 24 131/86 94 L 02/11/18 23:07 128 H 24 94 L 02/11/18 22:46 131 H 22 162/70 95 02/11/18 21:41 98.4 F 98 22 141/67 96 02/11/18 21:07 90 16 119/73 02/11/18 19:49 100.1 F H 93 16 136/66 93 L Intake and Output 02/11/18 02/12/18 02/12/18 22:59 06:59 14:59 Intake Total 15 240 Output Total 1000 Balance -985 240 Intake: Intake, IV Titration 15 Amount Diltiazem 50 mg In Sodium 15 Chloride 0.9% 40 ml @ 5 MG/HR 5 mls/hr IV .Q10H [facility] Rx#:[id number] Oral 240 Output: Urine 1000 Uretheral (Mcgill) 200 Other: Voiding Method Indwelling Catheter # Bowel Movements 1 Weight 127.006 kg 127.2 kg - Constitutional General appearance: morbidly obese - EENT Eyes: EOMI, PERRLA ENT: hearing grossly normal Ears: bilateral: normal - Neck Neck: normal ROM Carotids: bilateral: upstroke normal Thyroid: bilateral: normal size - Respiratory Respiratory: bilateral: rales - Cardiovascular Rhythm: irregularly irregular Heart sounds: normal: S1, S2 - Gastrointestinal General gastrointestinal: normal bowel sounds - Integumentary Integumentary: normal turgor - Musculoskeletal Musculoskeletal: generalized weakness Results - Laboratory Findings CBC and BMP: 02/12/18 05:37 02/12/18 05:37 ABG ABG pH 7.33 (7.35-7.45) L 02/12/18 10:50 ABG pCO2 76 mmHg (35-45) H* 02/12/18 10:50 ABG pO2 55 mmHg (83-108) L 02/12/18 10:50 ABG O2 Saturation 84.8 % (94-97) L 02/12/18 10:50 PT/INR, D-dimer PT 11.3 sec (9.0-12.0) 02/11/18 21:12 INR 1.2 (<1.2) H 02/11/18 21:12 Abnormal lab findings: Abnormal Labs 02/11/18 02/11/18 02/11/18 21:12 21:12 21:12 RBC 3.83 L Hgb 10.8 L Hct 34.4 L RDW 16.8 H INR 1.2 H ABG pH ABG pCO2 ABG pO2 ABG HCO3 ABG O2 Saturation Chloride 96 L Carbon Dioxide 40 H* BUN 22 H Glucose 107 H POC Glucose (mg/dL) AST 16 L Total Creatine Kinase Total Protein 5.9 L 02/11/18 02/11/18 02/12/18 21:12 22:20 05:37 RBC 3.92 L Hgb 11.1 L Hct 35.7 L RDW 16.7 H INR ABG pH ABG pCO2 66 H ABG pO2 46 L ABG HCO3 38 H ABG O2 Saturation 81.0 L Chloride Carbon Dioxide BUN Glucose POC Glucose (mg/dL) AST Total Creatine Kinase 23 L Total Protein 02/12/18 02/12/18 02/12/18 05:37 05:41 10:50 RBC Hgb Hct RDW INR ABG pH 7.33 L ABG pCO2 76 H* ABG pO2 55 L ABG HCO3 39 H ABG O2 Saturation 84.8 L Chloride 95 L Carbon Dioxide 37 H BUN 23 H Glucose 132 H POC Glucose (mg/dL) 136 H AST Total Creatine Kinase Total Protein 5.9 L 02/12/18 11:40 RBC Hgb Hct RDW INR ABG pH ABG pCO2 ABG pO2 ABG HCO3 ABG O2 Saturation Chloride Carbon Dioxide BUN Glucose POC Glucose (mg/dL) 138 H AST Total Creatine Kinase Total Protein - Diagnostic Findings Chest x-ray: image reviewed Assessment and Plan Assessment: Impression: #1 Acute on chronic hypercapnic last hypoxic respiratory failure secondary to acute exacerbation of diastolic congestive heart failure, narcotic affect, morbid obesity #2 Acute on chronic diastolic congestive heart failure. #3 Altered mental status secondary to above. #4 Recent history of acute renal failure. #5 Diabetes mellitus. #6 Atrial fibrillation, anticoagulated with Xarelto. On Tikosyn. Previous ablation. #7 Obstructive sleep apnea intolerant to utilizing CPAP in the outpatient setting. #8 Chronic obstructive pulmonary disease, oxygen dependent, with an FEV1 value of 40% of predicted. #9 Previous smoking history. #10 Coronary artery disease with multiple stent placements and subsequent coronary artery bypass grafting 2007. #11 History of colon cancer with colectomy. #12 History of anxiety/depression. #13 Poor overall functional performance based on the above-mentioned multiple comorbidities. Plan: The patient was seen and evaluated by Dr. De La Rosa. Chest x-ray and labs reviewed. Suspect chronic hypercapnia hypoxic respiratory failure secondary to narcotic use, diastolic congestive heart failure, morbid obesity. Advise cost issues of the medication causing decreased respiratory drive. We will change his Symbicort to Pulmicort inhalations twice a day. Continue DuoNeb inhalations. BiPAP if necessary. Computed tomography scan of the brain noted. Maintaining a neurology consult. We'll continue to follow. I, the cosigning physician, performed a history & physical examination of the patient. Lungs sounds with faint crackles in the bilateral posterior bases. Diminished. Maintaining good O2 saturations in the 90s on 2 L/m per nasal cannula. I discussed the assessment and plan of care with my nurse practitioner , Peyton Watts. I attest to the above consultation as dictated by her. Time with Patient: Greater than 30
[2018-02-12] MEDS: INSULIN ASPART 100 UNIT/ML 1 ML 10 ML VIAL SQ SCH ×3 (14:05→21:09)
--- NOTE | 2018-02-12 14:31 | P.HPIM ---
History of Present Illness H&P Date: 02/12/18 67-year-old male one of Dr. Dsouza's patient who seen in October for severe dyspnea and shortness of breath and respiratory failure had a heart catheter that time patient was diagnosed with pulmonary hypertension, patient is known to have A. fib with RVR has been on Tikosyn along with anticoagulation. Patient was admitted to [facility] for 10 days was discharged after aggressive diuretic management secondary to anasarca. He then presented to Dr. Dsouza in the office in 01-14 and complain has not made any urine since Sunday. Creatinine was9.8 and bun over 100. Patient was sent to [facility] emergency center for acute kidney injury. Patient was admitted to hospital and seen also by Dr. Nelson. Dr. Lui placed a right-sided dialysis catheter and patient was started on hemodialysis. Patient was then transferred to [facility] on January 17. Patient presented yesterday to [facility] emergency center complaining of difficulty breathing, confusion and weakness as well as tremor. Patient was discharged from [facility] 2 weeks ago and was apparently doing well into 2 days ago. His reported that he was becoming increasingly confused. Patient had no chest pain. Positive chronic cough with sputum production that is green and white and foamy. Patient states that his legs were weak and he had trouble walking. He also noticed that his heart rate was high. Patient was afebrile. Heart rate running in the 120s and 130s. ABGs showed a pH of 7.3, pCO2 66, pO2 46. EKG was atrial fibrillation with rapid ventricular response. Patient had bladder scan done that showed 400 ML's of Mcgill catheter which was a traumatic insertion and he has had hematuria after. Chest x-ray shows heart failure, widened mediastinum similar to old exam. Patient was started on Cardizem drip and admitted to the selective care unit and consult placed with cardiology and pulmonary medicine. During her examination, patient was awake and alert and seemed to be at his baseline. Several hours later, nursing called the patient had a change in his mental status and was confused. CAT scan of the brain was done that revealed degenerative change with a greater central component. Normal pressure hydrocephalus in the differential. Assessment septal acute hemorrhage is limited due to artifact. No obvious sizable acute intraparenchymal hemorrhage or mass effect. Consult with neurology also added. PT and OT. Records from [facility] to be obtained. Review of Systems All systems: negative Constitutional: Reports fatigue, Reports weakness, Denies chills, Denies fever, Denies weight gain, Denies weight loss Eyes: denies blurred vision, denies pain Ears, nose, mouth and throat: Denies headache, Denies sore throat Cardiovascular: Reports palpitations, Reports shortness of breath, Denies chest pain, Denies leg edema Respiratory: Reports cough with sputum, Reports dyspnea, Denies cough, Denies excessive sputum, Denies hemoptysis Gastrointestinal: Denies abdominal pain, Denies diarrhea, Denies nausea, Denies vomiting Genitourinary: Reports urinary retention Musculoskeletal: Reports gait dysfunction, Denies myalgias Integumentary: Denies pruritus, Denies rash Neurological: Denies numbness, Denies weakness Psychiatric: Denies anxiety, Denies depression Endocrine: Denies fatigue, Denies weight change Past Medical History Past Medical History: Atrial Fibrillation, Atrial Flutter, Coronary Artery Disease (CAD), Cancer, Heart Failure, COPD, Diabetes Mellitus, GERD/Reflux, GI Bleed, Hearing Disorder / Deafness, Hyperlipidemia, Hypertension, Myocardial Infarction (MA), Renal Disease, Sleep Apnea/CPAP/BIPAP, Vascular Disorder Additional Past Medical History / Comment(s): Pt states he was just discharged from [facility] on Sunday, January 11, 2018 where he was treated for Afib RVR/CHF and exacerbation of his COPD. 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 kidney failure Last Myocardial Infarction Date:: 1997 History of Any Multi-Drug Resistant Organisms: None Reported Past Surgical History: Back Surgery, Bowel Resection, Cardiac Ablation, Coronary Bypass/CABG, Heart Catheterization, Heart Catheterization With Stent, Joint Replacement, Orthopedic Surgery Additional Past Surgical History / Comment(s): FAVIAN, cardiac ablation, several cardiac caths, PCI with stents-total of 2007 CABG 3 vessel, 14 inches small bowel removed for cancerous tumor, partial L knee replacement, R leg vascular surgery, EGD/colonoscopy, endocapsule, L toe middle toe amp, low back fusion, bilateral cataract removals. Past Anesthesia/Blood Transfusion Reactions: No Reported Reaction Date of Last Stent Placement:: 1997 Past Psychological History: No Psychological Hx Reported Additional Psychological History / Comment(s): Pt resides with his spouse of 16 years. He has difficulty sleeping-gets maybe 3 hours per night. 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 Pt lives in single level home w/4 porch steps. No home care services. Has home 02 2 liters n/c which he now wears ATC. He has a glucometer. Smoking Status: Former smoker Past Alcohol Use History: Rare Additional Past Alcohol Use History / Comment(s): Pt started smoking in 1962 and quit in 2004. He is a recovering alcoholic and quit drinking in 1981 Past Drug Use History: Unable to Obtain Additional Drug Use History / Comment(s): remote history of trial of recreational drugs in 1969, none since - Past Family History Father Family Medical History: Chest Pain / Angina, Coronary Artery Disease (CAD), Myocardial Infarction (MA) Additional Family Medical History / Comment(s): Father of a MA at the age of 54yrs. Brother(s) Family Medical History: Chest Pain / Angina, Coronary Artery Disease (CAD), Myocardial Infarction (MA) Additional Family Medical History / Comment(s): Brother had a MA at the age of 58 yrs. He is living. Son(s) Family Medical History: Musculoskeletal Disorder Mother Family Medical History: Vascular Disorder Additional Family Medical History / Comment(s): of brain aneurysm at age 34 Medications and Allergies Home Medications Medication Instructions Recorded Confirmed Type Budesonide-Formot 160-4.5 Mcg 2 puff INHALATION RT-BID 12/26/13 02/11/18 History [Symbicort 160-4.5 Mcg Inhaler] Rivaroxaban [Xarelto] 20 mg PO DAILY #0 06/08/15 02/11/18 Rx Albuterol Inhaler [Ventolin Hfa 2 puff INHALATION RT-QID PRN 11/11/15 02/11/18 History Inhaler] Dofetilide 500 mcg PO BID 06/08/17 02/11/18 History Pregabalin [Lyrica] 150 mg PO BID 06/08/17 02/11/18 History metFORMIN HCL 1,000 mg PO BID 06/08/17 02/11/18 History Pantoprazole [Protonix] 40 mg PO DAILY #30 tablet. 06/23/17 02/11/18 Rx Ferrous Sulfate [Feosol] 325 mg PO SA 11/12/17 02/11/18 History rOPINIRole HCL [Requip] 1 mg PO HS 11/12/17 02/11/18 History Insulin Detemir [Levemir] 10 unit SQ HS #2 syr 11/20/17 02/11/18 Rx Losartan [Cozaar] 50 mg PO DAILY #30 tab 11/20/17 02/11/18 Rx Albuterol Nebulized [Ventolin 2.5 mg INHALATION RT-Q4H PRN 01/14/18 02/11/18 History Nebulized] Budesonide [Pulmicort] 1 mg INHALATION RT-BID 01/14/18 02/11/18 History Bumetanide [BUMEX] 1 mg PO BID 01/14/18 02/11/18 History Ergocalciferol (Vitamin D2) 50,000 unit PO 01/14/18 02/11/18 History [Vitamin D2] Methocarbamol [Robaxin-750] 750 mg PO TID PRN 01/14/18 02/11/18 History Metoprolol Succinate (ER) [Toprol 50 mg PO DAILY 01/14/18 02/11/18 History Xl] Naloxone HCl [Narcan] 4 mg NASAL DIRECTED PRN 01/14/18 02/11/18 History Simvastatin 40 mg PO 01/14/18 02/11/18 History Spironolactone [Aldactone] 25 mg PO BID 01/14/18 02/11/18 History oxyCODONE HCL [Roxicodone] 15 mg PO DAILY@1200 01/14/18 02/11/18 History oxyCODONE HCL [Roxicodone] 20 mg PO BID@01/14/18 02/11/18 History rOPINIRole HCL [Requip] 0.5 mg PO 01/14/18 02/11/18 History Allergies Allergy/AdvReac Type Severity Reaction Status Date / Time No Known Allergies Allergy Verified 02/11/18 20:14 Physical Exam Vitals: Vital Signs Temp Pulse Pulse Resp BP BP Pulse Ox 02/12/18 08:00 98.9 F 92 18 114/73 92 L 02/12/18 03:25 97.9 F 82 17 132/78 94 L 02/12/18 02:31 97.6 F 88 19 141/63 92 L 02/12/18 00:51 86 20 132/95 94 L 02/12/18 00:43 97.6 F 87 18 141/63 92 L 02/12/18 00:26 99.1 F 120 H 22 140/90 94 L 02/11/18 23:47 122 H 22 127/78 96 02/11/18 23:28 98.4 F 133 H 24 131/86 94 L 02/11/18 23:07 128 H 24 94 L 02/11/18 22:46 131 H 22 162/70 95 02/11/18 21:41 98.4 F 98 22 141/67 96 02/11/18 21:07 90 16 119/73 02/11/18 19:49 100.1 F H 93 16 136/66 93 L Intake and Output 02/11/18 02/12/18 02/12/18 22:59 06:59 14:59 Intake Total 15 240 Output Total 1000 Balance -985 240 Intake: Intake, IV Titration 15 Amount Diltiazem 50 mg In Sodium 15 Chloride 0.9% 40 ml @ 5 MG/HR 5 mls/hr IV .Q10H [facility] Rx#:[id number] Oral 240 Output: Urine 1000 Uretheral (Mcgill) 200 Other: Voiding Method Indwelling Catheter # Bowel Movements 1 Weight 127.006 kg 127.2 kg General Appearance: Alert, cooperative, no distress, appears stated age. Patient appears comfortable at rest. Neck HEENT: Supple, no lymphadenopathy, no thyroid enlargement, no carotid bruits. Lungs: Decreased breaths in bilaterally with fine rhonchi. No accessory muscle usage. Chest Wall: Chest wall normal expansion with deep inspiration no tenderness and no deformity was found on exam, no costochondral pain or discomfort. Heart: Irregular rhythm and rate S1-S2 positive S3 positive tachycardia no JVD. Back: Symmetric, no curvature, ROM normal, no CVA tenderness. Abdomen: Soft positive bowel sounds slight distention with positive ascites in the abdomen, mild hepatomegaly. Extremities: 1+ edema decreased pulse in dorsalis pedis bilaterally Pulses: 2+ and symmetric. Skin: Skin color, texture, tugor normal, no rashes or lesions. Neurologic: Alert oriented x3 cranial nerves II through XII intact, no motor deficit, no abnormal balance or gait. Results CBC & Chem 7: 02/12/18 05:37 02/12/18 05:37 Labs: Abnormal Lab Results - Last 24 Hours (Table) 02/11/18 02/11/18 02/11/18 Range/Units 21:12 21:12 21:12 RBC 3.83 L (4.30-5.90) m/uL Hgb 10.8 L (13.0-17.5) gm/dL Hct 34.4 L (39.0-53.0) % RDW 16.8 H (11.5-15.5) % INR 1.2 H (<1.2) ABG pCO2 (35-45) mmHg ABG pO2 (83-108) mmHg ABG HCO3 (21-25) mmol/L ABG O2 Saturation (94-97) % Chloride 96 L (98-107) mmol/L Carbon Dioxide 40 H* (22-30) mmol/L BUN 22 H (9-20) mg/dL Glucose 107 H (74-99) mg/dL POC Glucose (mg/dL) (75-99) mg/dL AST 16 L (17-59) U/L Total Creatine Kinase (55-170) U/L Total Protein 5.9 L (6.3-8.2) g/dL 02/11/18 02/11/18 02/12/18 Range/Units 21:12 22:20 05:37 RBC 3.92 L (4.30-5.90) m/uL Hgb 11.1 L (13.0-17.5) gm/dL Hct 35.7 L (39.0-53.0) % RDW 16.7 H (11.5-15.5) % INR (<1.2) ABG pCO2 66 H (35-45) mmHg ABG pO2 46 L (83-108) mmHg ABG HCO3 38 H (21-25) mmol/L ABG O2 Saturation 81.0 L (94-97) % Chloride (98-107) mmol/L Carbon Dioxide (22-30) mmol/L BUN (9-20) mg/dL Glucose (74-99) mg/dL POC Glucose (mg/dL) (75-99) mg/dL AST (17-59) U/L Total Creatine Kinase 23 L (55-170) U/L Total Protein (6.3-8.2) g/dL 02/12/18 02/12/18 Range/Units 05:37 05:41 RBC (4.30-5.90) m/uL Hgb (13.0-17.5) gm/dL Hct (39.0-53.0) % RDW (11.5-15.5) % INR (<1.2) ABG pCO2 (35-45) mmHg ABG pO2 (83-108) mmHg ABG HCO3 (21-25) mmol/L ABG O2 Saturation (94-97) % Chloride 95 L (98-107) mmol/L Carbon Dioxide 37 H (22-30) mmol/L BUN 23 H (9-20) mg/dL Glucose 132 H (74-99) mg/dL POC Glucose (mg/dL) 136 H (75-99) mg/dL AST (17-59) U/L Total Creatine Kinase (55-170) U/L Total Protein 5.9 L (6.3-8.2) g/dL Thrombosis Risk Factor Assmnt - DVT/VTE Prophylaxis DVT/VTE Prophylaxis: Pharmacologic Prophylaxis ordered - Choose All That Apply Each Factor Represents 1 point: Abnormal pulmonary function (COPD), Obesity ( BMI >25) Each Risk Factor Represents 2 Points: Age 61-74 years Each Risk Factor Represents 3 Points: History of DVT/PE Thrombosis Risk Factor Assessment Total Risk Factor Score: 7 Thrombosis Risk Factor Assessment Level: High Risk Assessment and Plan Plan: 1. Acute metabolic encephalopathy of unclear etiology possibly related to episodes of hypoxia and hypercapnia. CAT scan of the brain as above. Consult with neurology. Continue neuro checks. 2. Acute on chronic hypercapnic and hypoxic respiratory failure. Consult with Dr. De La Rosa. Continue O2 therapy, albuterol nebulizer every 4 hours as needed, Pulmicort 1 mg twice daily. 3. Chronic kidney disease stage II with recent acute kidney injury from aggressive diuresing. 4. Atrial fibrillation with rapid ventricular response. Cardiology consult. Patient is been on a Cardizem drip. Lopressor increased to 75 mg daily. Xarelto has been resumed. Continue Tikosyn. 5. Pulmonary hypertension: Patient has been seen pulmonary and cardiology. 6. Chronic diastolic heart failure. Continue Bumex 1 mg twice daily, Aldactone 25 mg twice daily, Toprol-XL 75 mg daily. Cardiology consult appreciated. 7. Paroxysmal atrial fibrillation. Continue Tikosyn, metoprolol with Xarelto. 8. Restless leg syndrome: Remain on Requip 1.5 g daily at bedtime. 9. Hyperlipidemia: Has been on simvastatin 40 mg daily at bedtime. 10. Diabetes: Type II has been on insulin and metformin, hold metformin. Continue Levemir 10 units at bedtime and Accu-Chek with sliding scales coverage. 11. Chronic pain syndrome: Has been on Lyrica, Robaxin and scheduled oxycodone. 12. Advance COPD: Patient has been on Bumex, Pulmicort Ventolin. Continue O2 as well. 13. DVT prophylaxis: Patient has been on anticoagulation. 14 GI prophylaxis: Patient will be on pantoprazole 40 mg daily. CODE STATUS: Full code. Patient will be admitted to the hospital for a minimum of 2 night stay. Discharge plan: To be determined. Request PT and OT and patient would benefit from subacute rehab Impression and plan of care have been directed as dictated by the signing physician. Larissa Warner nurse practitioner acting as scribe for signing physician.
[2018-02-12 16:45] LABS: Glucose,Whole Blood 147 mg/dL (75-99)
[2018-02-12] MEDS: RIVAROXABAN 20 MG TAB PO SCH (17:20)
--- NOTE | 2018-02-12 18:34 | P.CNNES ---
History of Present Illness Consult date: 02/12/18 Reason for Consult: Patient being evaluated for confusion and history of Atrial Fibrillation. History of Present Illness: This patient is a 68-year-old right-handed white male who was brought into the emergency room at [facility] yesterday for evaluation of altered mental status and confusion. According to his who provided the medical history today at the bedside and his daughter the patient was at [facility] 2 weeks ago for treatment of renal failure and septic shock. He was discharged home about 2 weeks ago and since that time has been showing increasing confusion and disorientation. He was discharged from [facility] on 01/16/2018 after being admitted for acute renal failure. Apparently while at [facility] he required dialysis. Since coming home he has been doing better but clearly had more increase in confusion and disorientation for 2 weeks and this was the main reason for the family to bring him in yesterday for evaluation. He follows in the outpatient medical clinic with Dr. Dsouza he was scheduled to see him tomorrow prior to his hospitalization yesterday. Patient states he does have a history of chronic atrial fibrillation and is currently been taking Xarelto as well as Tikosyn for treatment of cardiac arrhythmia. He follows with his administrative program specialist for this condition. According to the family he does use oxycodone 20 mg twice a day for treatment of chronic low back pain symptoms. He has a history of back surgery in 2007 and has been using oxycodone for pain management. He was seen in the emergency room by nurse practitioner Dianne Betancur. He was sent for a computed tomography scan of the brain yesterday which was completed and revealed degenerative change with greater central component. The differential included NPH. There was also no evidence for acute intraparenchymal hemorrhage or mass effect. The patient clinically denies any symptoms of acute dementia, gait apraxia, or urinary incontinence. These would be typical clinical findings for NPH. Review of his actual CAT scan film reveals only mild to moderate ventriculomegaly. The patient states he has been having weakness in his legs for the last 2 weeks. He has had 2 falls at home despite using a walker. He states his left leg seems to be weaker. In the emergency room he was given Narcan which did not show much improvement in his overall mental status. He was suddenly admitted to Hospital for further assessment and treatment. The patient is a poor historian. Apparently he has been treated for underlying restless leg syndrome. He is also been complaining of increase in hand tremors. According to his and his daughter who is at bedside he is also been showing difficulty with his speech. He has been having word finding difficulties as well as mild hesitation in his speech. This apparently is a new finding also present in the last 2 weeks. He is able to answer all questions this afternoon and seems to be appropriate. He denies any dysarthric speech. He is now been admitted and neurology has been consulted for further evaluation and recommendations. Review of Systems Constitutional: Denies chills, Denies fever Eyes: denies blurred vision, denies pain Ears, nose, mouth and throat: Denies headache, Denies sore throat Cardiovascular: Denies chest pain, Denies shortness of breath Respiratory: Denies cough Gastrointestinal: Denies abdominal pain, Denies diarrhea, Denies nausea, Denies vomiting Genitourinary: Reports urinary hesitancy Musculoskeletal: Denies myalgias Integumentary: Denies pruritus, Denies rash Neurological: Reports balance difficulties, Reports change in speech, Reports confusion, Reports motor disturbance, Reports paresthesias, Reports tingling, Denies numbness, Denies weakness Psychiatric: Denies anxiety, Denies depression Endocrine: Denies fatigue, Denies weight change Past Medical History Past Medical History: Atrial Fibrillation, Atrial Flutter, Coronary Artery Disease (CAD), Cancer, Heart Failure, COPD, Diabetes Mellitus, GERD/Reflux, GI Bleed, Hearing Disorder / Deafness, Hyperlipidemia, Hypertension, Myocardial Infarction (PR), Renal Disease, Sleep Apnea/CPAP/BIPAP, Vascular Disorder Additional Past Medical History / Comment(s): Pt states he was just discharged from [facility] on Sunday, January 11, 2018 where he was treated for Afib RVR/CHF and exacerbation of his COPD. 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 kidney failure Last Myocardial Infarction Date:: 1997 History of Any Multi-Drug Resistant Organisms: None Reported Past Surgical History: Back Surgery, Bowel Resection, Cardiac Ablation, Coronary Bypass/CABG, Heart Catheterization, Heart Catheterization With Stent, Joint Replacement, Orthopedic Surgery Additional Past Surgical History / Comment(s): FAVIAN, cardiac ablation, several cardiac caths, PCI with stents-total of 2007 CABG 3 vessel, 14 inches small bowel removed for cancerous tumor, partial L knee replacement, R leg vascular surgery, EGD/colonoscopy, endocapsule, L toe middle toe amp, low back fusion, bilateral cataract removals. Past Anesthesia/Blood Transfusion Reactions: No Reported Reaction Date of Last Stent Placement:: 1997 Past Psychological History: No Psychological Hx Reported Additional Psychological History / Comment(s): Pt resides with his spouse of 16 years. He has difficulty sleeping-gets maybe 3 hours per night. 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 Pt lives in single level home w/4 porch steps. No home care services. Has home 02 2 liters n/c which he now wears ATC. He has a glucometer. Smoking Status: Former smoker Past Alcohol Use History: Rare Additional Past Alcohol Use History / Comment(s): Pt started smoking in 1962 and quit in 2004. He is a recovering alcoholic and quit drinking in 1981 Past Drug Use History: Unable to Obtain Additional Drug Use History / Comment(s): remote history of trial of recreational drugs in 1969, none since - Past Family History Father Family Medical History: Chest Pain / Angina, Coronary Artery Disease (CAD), Myocardial Infarction (PR) Additional Family Medical History / Comment(s): Father of a PR at the age of 54yrs. Brother(s) Family Medical History: Chest Pain / Angina, Coronary Artery Disease (CAD), Myocardial Infarction (PR) Additional Family Medical History / Comment(s): Brother had a PR at the age of 58 yrs. He is living. Son(s) Family Medical History: Musculoskeletal Disorder Mother Family Medical History: Vascular Disorder Additional Family Medical History / Comment(s): of brain aneurysm at age 34 Medications and Allergies Home Medications Medication Instructions Recorded Confirmed Type Budesonide-Formot 160-4.5 Mcg 2 puff INHALATION RT-BID 12/26/13 02/11/18 History [Symbicort 160-4.5 Mcg Inhaler] Rivaroxaban [Xarelto] 20 mg PO DAILY #0 06/08/15 02/11/18 Rx Albuterol Inhaler [Ventolin Hfa 2 puff INHALATION RT-QID PRN 11/11/15 02/11/18 History Inhaler] Dofetilide 500 mcg PO BID 06/08/17 02/11/18 History Pregabalin [Lyrica] 150 mg PO BID 06/08/17 02/11/18 History metFORMIN HCL 1,000 mg PO BID 06/08/17 02/11/18 History Pantoprazole [Protonix] 40 mg PO DAILY #30 tablet. 06/23/17 02/11/18 Rx Ferrous Sulfate [Feosol] 325 mg PO SA 11/12/17 02/11/18 History rOPINIRole HCL [Requip] 1 mg PO HS 11/12/17 02/11/18 History Insulin Detemir [Levemir] 10 unit SQ HS #2 syr 11/20/17 02/11/18 Rx Losartan [Cozaar] 50 mg PO DAILY #30 tab 11/20/17 02/11/18 Rx Albuterol Nebulized [Ventolin 2.5 mg INHALATION RT-Q4H PRN 01/14/18 02/11/18 History Nebulized] Budesonide [Pulmicort] 1 mg INHALATION RT-BID 01/14/18 02/11/18 History Bumetanide [BUMEX] 1 mg PO BID 01/14/18 02/11/18 History Ergocalciferol (Vitamin D2) 50,000 unit PO SA 01/14/18 02/11/18 History [Vitamin D2] Methocarbamol [Robaxin-750] 750 mg PO TID PRN 01/14/18 02/11/18 History Metoprolol Succinate (ER) [Toprol 50 mg PO DAILY 01/14/18 02/11/18 History Xl] Naloxone HCl [Narcan] 4 mg NASAL DIRECTED PRN 01/14/18 02/11/18 History Simvastatin 40 mg PO HS 01/14/18 02/11/18 History Spironolactone [Aldactone] 25 mg PO BID 01/14/18 02/11/18 History oxyCODONE HCL [Roxicodone] 15 mg PO DAILY@1200 01/14/18 02/11/18 History oxyCODONE HCL [Roxicodone] 20 mg PO BID@08,22 01/14/18 02/11/18 History rOPINIRole HCL [Requip] 0.5 mg PO HS 01/14/18 02/11/18 History Allergies Allergy/AdvReac Type Severity Reaction Status Date / Time No Known Allergies Allergy Verified 02/11/18 20:14 Physical Examination - Vital Signs Vital Signs: Vital Signs Temp Pulse Pulse Resp BP BP Pulse Ox 02/12/18 12:11 92 02/12/18 11:58 94 02/12/18 08:00 98.9 F 92 18 114/73 92 L 02/12/18 03:25 97.9 F 82 17 132/78 94 L 02/12/18 02:31 97.6 F 88 19 141/63 92 L 02/12/18 00:51 86 20 132/95 94 L 02/12/18 00:43 97.6 F 87 18 141/63 92 L 02/12/18 00:26 99.1 F 120 H 22 140/90 94 L 02/11/18 23:47 122 H 22 127/78 96 02/11/18 23:28 98.4 F 133 H 24 131/86 94 L 02/11/18 23:07 128 H 24 94 L 02/11/18 22:46 131 H 22 162/70 95 02/11/18 21:41 98.4 F 98 22 141/67 96 02/11/18 21:07 90 16 119/73 02/11/18 19:49 100.1 F H 93 16 136/66 93 L Intake and Output 02/11/18 02/12/18 02/12/18 22:59 06:59 14:59 Intake Total 15 240 Output Total 1000 Balance -985 240 Intake: Intake, IV Titration 15 Amount Diltiazem 50 mg In Sodium 15 Chloride 0.9% 40 ml @ 5 MG/HR 5 mls/hr IV .Q10H [facility] Rx#:[id number] Oral 240 Output: Urine 1000 Uretheral (Mcgill) 200 Other: Voiding Method Indwelling Catheter # Bowel Movements 1 Weight 127.006 kg 127.2 kg - Constitutional General appearance: average body habitus, cooperative - EENT EENT: PERRL, mucous membranes moist - Respiratory Respiratory: lungs clear, normal breath sounds - Cardiovascular Cardiovascular: regular rate, normal S1, normal S2 Extremities: no peripheral edema bilaterally - Gastrointestinal Gastrointestinal: normoactive bowel sounds - Integumentary Integumentary: normal - Neurologic Cranial nerve examination: PERRL, EOMI, VFF, V1/V2/V3 grossly intact, face symmetric, tongue midline, intact gag reflex, intact corneal reflex, normal palatal elevation Speech examination: intact Motor examination - right side: 4/5: biceps, triceps, wrist flexion, wrist extension, vehicle and equipment cleaner, hip flexors, knee extensors, dorsiflexion, toe extension (EHL) , plantarflexion Motor examination - left side: 3/5: dorsiflexion, toe extension (EHL), plantarflexion, 4/5: biceps, triceps, wrist flexion, wrist extension, vehicle and equipment cleaner, hip flexors, knee extensors Detailed sensory examination: intact Reflex and gait examination: intact Reflexes: 1+: ankle, bicep, knee, tricep - Musculoskeletal Musculoskeletal: no pain - Psychiatric Psychiatric: mood/affect appropriate, cooperative Results - Laboratory Findings CBC and BMP: 02/12/18 05:37 02/12/18 05:37 Abnormal Lab Findings: Abnormal Labs 02/11/18 02/11/18 02/11/18 21:12 21:12 21:12 RBC 3.83 L Hgb 10.8 L Hct 34.4 L RDW 16.8 H INR 1.2 H ABG pH ABG pCO2 ABG pO2 ABG HCO3 ABG O2 Saturation Chloride 96 L Carbon Dioxide 40 H* BUN 22 H Glucose 107 H POC Glucose (mg/dL) AST 16 L Total Creatine Kinase Total Protein 5.9 L 02/11/18 02/11/18 02/12/18 21:12 22:20 05:37 RBC 3.92 L Hgb 11.1 L Hct 35.7 L RDW 16.7 H INR ABG pH ABG pCO2 66 H ABG pO2 46 L ABG HCO3 38 H ABG O2 Saturation 81.0 L Chloride Carbon Dioxide BUN Glucose POC Glucose (mg/dL) AST Total Creatine Kinase 23 L Total Protein 02/12/18 02/12/18 02/12/18 05:37 05:41 10:50 RBC Hgb Hct RDW INR ABG pH 7.33 L ABG pCO2 76 H* ABG pO2 55 L ABG HCO3 39 H ABG O2 Saturation 84.8 L Chloride 95 L Carbon Dioxide 37 H BUN 23 H Glucose 132 H POC Glucose (mg/dL) 136 H AST Total Creatine Kinase Total Protein 5.9 L 02/12/18 11:40 RBC Hgb Hct RDW INR ABG pH ABG pCO2 ABG pO2 ABG HCO3 ABG O2 Saturation Chloride Carbon Dioxide BUN Glucose POC Glucose (mg/dL) 138 H AST Total Creatine Kinase Total Protein Assessment and Plan (1) TIA (transient ischemic attack) Current Visit: Yes Status: Acute Code(s): G45.9 - TRANSIENT CEREBRAL ISCHEMIC ATTACK, UNSPECIFIED SNOMED Code(s): 865383332 (2) Atrial fibrillation with RVR Current Visit: Yes Status: Acute Code(s): I48.91 - UNSPECIFIED ATRIAL FIBRILLATION SNOMED Code(s): 352800661551768 (3) Memory loss Current Visit: Yes Status: Acute Code(s): R41.3 - OTHER AMNESIA SNOMED Code(s): 908717987 (4) Acute respiratory failure with hypoxia and hypercarbia Current Visit: Yes Status: Acute Code(s): J96.01 - ACUTE RESPIRATORY FAILURE WITH HYPOXIA; J96.02 - ACUTE RESPIRATORY FAILURE WITH HYPERCAPNIA SNOMED Code(s): 671381627 (5) Renal failure Current Visit: No Status: Acute Code(s): N19 - UNSPECIFIED KIDNEY FAILURE SNOMED Code(s): 31434111 Plan: This patient is a 68-year-old right-handed white male who was admitted to Hospital yesterday with symptoms of acute confusion and disorientation. Patient was recently treated at [facility] for acute renal failure and was on hemodialysis. He was discharged about 2 weeks ago and since that time according to his and other family members he has been showing a decline in his cognitive functioning at home. Yesterday he was quite confused and the family decided to bring him to the emergency room for further evaluation at [facility]. He was subtotally sent for a computed tomography scan of the brain and was admitted to Hospital. Patient has a history of chronic atrial fibrillation and is being anticoagulated with Xarelto. He also is on Tikosyn for treatment of cardiac arrhythmia and is being followed in the cardiology clinic. We have recommended the patient undergo MRI of the brain for further evaluation of possible stroke. His clinical history suggests possibility of TIA versus stroke. Review of his computed tomography scan of the brain reveals only mild to moderate ventriculomegaly and not typical for NPH. We will await his MRI results of the brain and we will give further recommendations. Patient would benefit from physical therapy consultation and possible subacute rehab once he is medically stable. His overall prognosis at this time remains guarded. Case was discussed at length with the patient as well as his and other family members at bedside. All of their questions were answered. They're aware of his guarded condition. His overall prognosis at this time remains guarded. We will continue close neurological follow-up for this patient during this admission. Time with Patient: Greater than 30
[2018-02-12] MEDS: INSULIN DETEMIR 100 UNIT/ML 10 ML VIAL SQ SCH (20:20)
[2018-02-12] MEDS: ATORVASTATIN 20 MG TAB PO SCH (20:23)
[2018-02-12 20:59] LABS: Glucose,Whole Blood 147 mg/dL (75-99)
[2018-02-13 06:15] LABS: Glucose,Whole Blood 115 mg/dL (75-99)
[2018-02-13] MEDS: INSULIN ASPART 100 UNIT/ML 1 ML 10 ML VIAL SQ SCH ×4 (06:23→21:42)
[2018-02-13] MEDS: PANTOPRAZOLE 40 MG TABLET PO SCH (06:46)
[2018-02-13] MEDS: BUDESONIDE 1 MG/2 ML NEBU INHALATION SCH ×2 (07:37→20:08)
[2018-02-13] MEDS: ALBUTEROL NEBULIZED 2.5 MG/3 ML INHALATION PRN ×2 (07:37→20:08)
--- NOTE | 2018-02-13 09:12 | US ---
EXAMINATION TYPE: US carotid duplex BILAT DATE OF EXAM: 02/13/2018 COMPARISON: CT Brain CLINICAL HISTORY: Altered mental status and TIA.. Patient stated in hospital for heart problems, LANDY, AFIB; prior CABG Exam is technically limited by patient's thick neck, cardiac arrhythmia, and difficulty in breathing EXAM MEASUREMENTS: RIGHT: Peak Systolic Velocity (PSV) cm/sec ----- Right CCA: 70.3 ----- Right ICA: 174.6 distally at tortuous portion ----- Right ECA: 174.4 proximally ICA/CCA ratio: 2.5 RIGHT: End Diastole cm/sec ----- Right CCA: 22.0 ----- Right ICA: 76.1 ----- Right ECA: 24.8 LEFT: Peak Systolic Velocity (PSV) cm/sec ----- Left CCA: 54.5 ----- Left ICA: `109.2 ----- Left ECA: 84.9 ICA/CCA ratio: 2.0 LEFT: End Diastole cm/sec ----- Left CCA: 12.8 ----- Left ICA: 46.2 ----- Left ECA: 20.2 VERTEBRALS (direction of flow): Right Vertebral: Antegrade Left Vertebral: Antegrade Rhythm: Arrhythmia Moderate intimal wall changes are noted at bilateral bifurcation with calcification Left ICA also not ed. Increased PSV distal Right ICA may be due to very tortuous vessel seen distally. IMPRESSION: 1. Moderate atherosclerotic changes bilaterally with findings suggestive of a 50-69% stenosis bilater ally. Correlate with CTA as clinically warranted. 2. Correlate for cardiac dysrhythmia. Criteria for Assigning % of Stenosis / Diameter reduction (Estimation based on the indirect measurements of the internal carotid artery velocities (ICA PSV). 1. Normal (no stenosis)=ICA PSV < 125 cm/s: ratio < 2.0: ICA EDV<40 cm/s. 2. Less than 50% stenosis=ICA PSV < 125 cm/s: ratio < 2.0: ICA EDV<40 cm/s. 3. 50 to 69% stenosis=ICA PSV of 125 to 230 cm/s: ration 2.0 ? 4.0: ICA EDV 40-100 cm/s. 4. Greater than 70% stenosis to near occlusion= ICA PSV > 230 cm/s: ratio > 4.0: ICA EDV > 100 cm/s. 5. Near occlusion= ICA PSV velocities may be low or undetectable: variable ratio and ICA EDV. 6. Total occlusion=unable to detect flow.
[2018-02-13] MEDS: SPIRONOLACTONE 25 MG TAB PO SCH ×2 (10:14→20:36)
[2018-02-13] MEDS: RIVAROXABAN 20 MG TAB PO SCH (10:14)
[2018-02-13] MEDS: metFORMIN 500 MG TAB PO SCH ×2 (10:14→21:42)
[2018-02-13] MEDS: METOPROLOL SUCCINATE (ER) 50 MG TAB.ER.24H PO SCH (10:15)
[2018-02-13] MEDS: LOSARTAN 50 MG TAB PO SCH (10:15)
[2018-02-13] MEDS: DOFETILIDE 500 MCG CAP PO SCH (10:16)
[2018-02-13] MEDS: BUMETANIDE 1 MG TAB PO SCH ×2 (10:16→20:36)
[2018-02-13] MEDS: PREGABALIN 75 MG CAP PO SCH ×2 (10:24→20:36)
[2018-02-13] MEDS ORDERED: LORazepam 2 MG/ML INJ IV STA (11:00)
[2018-02-13 11:20] LABS: Glucose,Whole Blood 134 mg/dL (75-99)
--- NOTE | 2018-02-13 12:12 | MR ---
EXAMINATION TYPE: MR brain wo con DATE OF EXAM: 02/13/2018 11:45 AM COMPARISON: NONE HISTORY: Patient with altered mental status FINDINGS: The ventricles, basal cisterns and sulci overlying the cerebral convexities are moderately enlarged. There is evidence of mild periventricular white matter ischemic demyelination. Remote deep white matter insults are also noted. No acute edema is seen on diffusion weighted imaging. There is no evidence for midline shift or mass effect. Acute intracranial hemorrhage or extra-axial collection is not evident. The paranasal sinuses and mastoid air cells are well-aerated. IMPRESSION: Age-related atrophic and chronic small vessel ischemic change. No acute intracranial process at this time.
--- NOTE | 2018-02-13 12:27 | P.PN ---
Subjective Progress Note Date: 02/13/18 67-year-old male one of Dr. Dsouza's patient who seen in October for severe dyspnea and shortness of breath and respiratory failure had a heart catheter that time patient was diagnosed with pulmonary hypertension, patient is known to have A. fib with RVR has been on Tikosyn along with anticoagulation. Patient was admitted to [facility] for 10 days was discharged after aggressive diuretic management secondary to anasarca. He then presented to Dr. Dsouza in the office in 01-14 and complain has not made any urine since Sunday. Creatinine was9.8 and bun over 100. Patient was sent to [facility] emergency center for acute kidney injury. Patient was admitted to hospital and seen also by Dr. Nelson. Dr. Lui placed a right-sided dialysis catheter and patient was started on hemodialysis. Patient was then transferred to [facility] on January 17. Patient presented yesterday to [facility] emergency center complaining of difficulty breathing, confusion and weakness as well as tremor. Patient was discharged from [facility] 2 weeks ago and was apparently doing well into 2 days ago. His reported that he was becoming increasingly confused. Patient had no chest pain. Positive chronic cough with sputum production that is green and white and foamy. Patient states that his legs were weak and he had trouble walking. He also noticed that his heart rate was high. Patient was afebrile. Heart rate running in the 120s and 130s. ABGs showed a pH of 7.3, pCO2 66, pO2 46. EKG was atrial fibrillation with rapid ventricular response. Patient had bladder scan done that showed 400 ML's of Mcgill catheter which was a traumatic insertion and he has had hematuria after. Chest x-ray shows heart failure, widened mediastinum similar to old exam. Patient was started on Cardizem drip and admitted to the selective care unit and consult placed with cardiology and pulmonary medicine. During her examination, patient was awake and alert and seemed to be at his baseline. Several hours later, nursing called the patient had a change in his mental status and was confused. CAT scan of the brain was done that revealed degenerative change with a greater central component. Normal pressure hydrocephalus in the differential. Assessment septal acute hemorrhage is limited due to artifact. No obvious sizable acute intraparenchymal hemorrhage or mass effect. Consult with neurology also added. PT and OT. Records from [facility] to be obtained. 02/13: Patient has been seen by Dr. Sood and MRI of the brain, ultrasound carotid duplex and EEG ordered. Heart rate is running in the 90s and low 100s. Pulse ox is 92% on 2 L nasal cannula. Discussed with patient's the need for subacute rehab and she is in agreement. Case management to meet with the patient and family. PT and OT evaluations are pending. Objective - Vital Signs Vital signs: Vital Signs Temp 97.9 F 02/13/18 04:00 Pulse 92 02/13/18 07:47 Resp 20 02/13/18 04:00 BP 108/55 02/13/18 04:00 Pulse Ox 92 L 02/13/18 04:00 Intake & Output 02/12/18 02/13/18 02/13/18 18:59 06:59 18:59 Intake Total 580 Output Total 1000 1400 Balance -420 -1400 Intake: Oral 580 Output: Urine 1000 1400 Other: Voiding Method Indwelling Catheter Indwelling Catheter # Bowel Movements 1 - Exam General Appearance: Alert, cooperative, no distress, appears stated age. Patient appears comfortable at rest. Neck HEENT: Supple, no lymphadenopathy, no thyroid enlargement, no carotid bruits. Lungs: Decreased breaths in bilaterally with fine rhonchi. No accessory muscle usage. Chest Wall: Chest wall normal expansion with deep inspiration no tenderness and no deformity was found on exam, no costochondral pain or discomfort. Heart: Irregular rhythm and rate S1-S2 positive S3 positive tachycardia no JVD. Back: Symmetric, no curvature, ROM normal, no CVA tenderness. Abdomen: Soft positive bowel sounds slight distention with positive ascites in the abdomen, mild hepatomegaly. Extremities: 1+ edema decreased pulse in dorsalis pedis bilaterally Pulses: 2+ and symmetric. Skin: Skin color, texture, tugor normal, no rashes or lesions. Neurologic: Alert oriented x3 cranial nerves II through XII intact, no motor deficit, no abnormal balance or gait. - Labs CBC & Chem 7: 02/12/18 05:37 02/12/18 05:37 Labs: Abnormal Lab Results - Last 24 Hours (Table) 02/12/18 02/12/18 02/12/18 Range/Units 10:50 11:40 16:43 ABG pH 7.33 L (7.35-7.45) ABG pCO2 76 H* (35-45) mmHg ABG pO2 55 L (83-108) mmHg ABG HCO3 39 H (21-25) mmol/L ABG O2 Saturation 84.8 L (94-97) % POC Glucose (mg/dL) 138 H 147 H (75-99) mg/dL 02/12/18 02/13/18 Range/Units 20:56 06:13 ABG pH (7.35-7.45) ABG pCO2 (35-45) mmHg ABG pO2 (83-108) mmHg ABG HCO3 (21-25) mmol/L ABG O2 Saturation (94-97) % POC Glucose (mg/dL) 147 H 115 H (75-99) mg/dL Microbiology - Last 24 Hours (Table) 02/11/18 21:12 Blood Culture - Preliminary Blood No Growth after 24 hours Assessment and Plan Plan: 1. Acute metabolic encephalopathy of unclear etiology possibly related to episodes of hypoxia and hypercapnia, possible TIA. CAT scan of the brain as above. Consult with Dr. Sood appreciated. Continue neuro checks. MRI of the brain, EEG and carotid ultrasound duplex ordered. 2. Acute on chronic hypercapnic and hypoxic respiratory failure. Consult with Dr. De La Rosa. Continue O2 therapy, albuterol nebulizer every 4 hours as needed, Pulmicort 1 mg twice daily. 3. Chronic kidney disease stage II with recent acute kidney injury from aggressive diuresing that required hemodialysis. 4. Atrial fibrillation with rapid ventricular response. Cardiology consult. Patient is been on a Cardizem drip. Lopressor increased to 75 mg daily. Xarelto has been resumed. Continue Tikosyn. 5. Pulmonary hypertension: Patient has been seen pulmonary and cardiology. 6. Chronic diastolic heart failure. Continue Bumex 1 mg twice daily, Aldactone 25 mg twice daily, Toprol-XL 75 mg daily. Cardiology consult appreciated. 7. Paroxysmal atrial fibrillation. Continue Tikosyn, metoprolol with Xarelto. 8. Restless leg syndrome: Remain on Requip 1.5 g daily at bedtime. 9. Hyperlipidemia: Has been on simvastatin 40 mg daily at bedtime. 10. Diabetes: Type II has been on insulin and metformin, hold metformin. Continue Levemir 10 units at bedtime and Accu-Chek with sliding scales coverage. 11. Chronic pain syndrome: Has been on Lyrica, Robaxin and scheduled oxycodone. 12. Advance COPD: Patient has been on Bumex, Pulmicort Ventolin. Continue O2 as well. 13. DVT prophylaxis: Patient has been on anticoagulation. 14 GI prophylaxis: Patient will be on pantoprazole 40 mg daily. CODE STATUS: Full code. Discharge plan: Request PT and OT and patient would benefit from subacute rehab Impression and plan of care have been directed as dictated by the signing physician. Larissa Warner nurse practitioner acting as scribe for signing physician.
[2018-02-13 16:30] LABS: Glucose,Whole Blood 136 mg/dL (75-99)
[2018-02-13] MEDS: ATORVASTATIN 20 MG TAB PO SCH (20:36)
[2018-02-13 20:55] LABS: Glucose,Whole Blood 151 mg/dL (75-99)
--- NOTE | 2018-02-13 20:55 | PN ---
PROGRESS NOTE This patient was admitted with confusion and atrial fibrillation with RVR. The patient underwent a MRI today. The results are not available. The patient is otherwise remains comfortable without any respiratory distress. The heart rate is 100 per minute, blood pressure is 140/63 mmHg. Heart S1 and S2 normal. Lungs reveal bilateral diminished air entry. The patient's blood gases are suggestive of significantly elevated pCO2 suggestion of severe chronic obstructive pulmonary disease. We will discontinue the patient's Tikosyn at present and continue the patient on Xarelto 20 mg daily. Patient is currently getting metoprolol succinate 75 mg daily. We will give him an additional dose of metoprolol succinate at 50 mg in the evening. MMODL / IJN: [id number] /
[2018-02-13] MEDS: INSULIN DETEMIR 100 UNIT/ML 10 ML VIAL SQ SCH (21:42)
[2018-02-13] MEDS ORDERED: MELATONIN 3 MG TABLET PO PRN (23:10)
--- NOTE | 2018-02-13 23:40 | P.PN ---
Subjective Progress Note Date: 02/13/18 This patient is a 68 year old male being evaluated for stroke and altered mental status. Patient was discharged from [facility] 2 weeks ago and since that time has been showing evidence of increased confusion at home. Patient was sent for MRI of the brain today for further evaluation. MRI completed today reveals age-related atrophy and chronic small vessel ischemic changes. No evidence of any acute intracranial process at this time. We reviewed the results of the MRI today with the patient. He had a carotid Doppler study done which reveals moderate bilateral stenosis of 5069 percent with no significant blockage. He was seen by cardiology today and his Tikosyn was discontinued. He is to continue on Xarelto. Patient is currently receiving metipranolol 75 mg daily. We will await any further recommendations from cardiology for this patient. Would recommend the patient to be considered for inpatient rehab for ongoing rehabilitation. We reviewed the results of the MRI of the brain today with the patient in detail. We will continue close neurological follow-up with the patient during this admission. Objective - Vital Signs Vital signs: Vital Signs Temp 96.8 F L 02/13/18 16:00 Pulse 93 02/13/18 20:26 Resp 20 02/13/18 16:00 BP 93/61 02/13/18 16:00 Pulse Ox 93 L 02/13/18 16:00 Intake & Output 02/13/18 02/13/18 02/14/18 06:59 18:59 06:59 Intake Total 660 Output Total 1400 900 Balance -1400 -240 Weight 130 kg Intake: Oral 660 Output: Urine 1400 900 Other: Voiding Method Indwelling Catheter Indwelling Catheter - Exam Physical Examination: PHYSICAL EXAMINATION: Patient is resting comfortably in bed. VITAL SIGNS: Blood pressure is [103/64]. Heart rate is [103]. Respiration is [17 ]. Temperature is [98.0]. HEENT: Head is atraumatic, neck is supple, there were no carotid bruits. CHEST: Lungs are clear to auscultation and percussion. CARDIAC: S1, S2 normal rate and rhythm. There is no murmur. ABDOMEN: Soft and nontender. Bowel sounds are present. EXTREMITIES: There is no pedal edema. Peripheral pulses are present. Neurological examination: Patient's neurological examination is unchanged from yesterday. - Labs CBC & Chem 7: 02/12/18 05:37 02/12/18 05:37 Labs: Abnormal Lab Results - Last 24 Hours (Table) 02/13/18 02/13/18 02/13/18 Range/Units 06:13 11:16 16:20 POC Glucose (mg/dL) 115 H 134 H 136 H (75-99) mg/dL 02/13/18 Range/Units 20:53 POC Glucose (mg/dL) 151 H (75-99) mg/dL Microbiology - Last 24 Hours (Table) 02/11/18 21:12 Blood Culture - Preliminary Blood No Growth after 24 hours Assessment and Plan (1) TIA (transient ischemic attack) Current Visit: Yes Status: Acute Code(s): G45.9 - TRANSIENT CEREBRAL ISCHEMIC ATTACK, UNSPECIFIED SNOMED Code(s): 728956265 (2) Atrial fibrillation with RVR Current Visit: Yes Status: Acute Code(s): I48.91 - UNSPECIFIED ATRIAL FIBRILLATION SNOMED Code(s): 156514756968355 (3) Memory loss Current Visit: Yes Status: Acute Code(s): R41.3 - OTHER AMNESIA SNOMED Code(s): 051962540 (4) Acute respiratory failure with hypoxia and hypercarbia Current Visit: Yes Status: Acute Code(s): J96.01 - ACUTE RESPIRATORY FAILURE WITH HYPOXIA; J96.02 - ACUTE RESPIRATORY FAILURE WITH HYPERCAPNIA SNOMED Code(s): 439169436 (5) Renal failure Current Visit: No Status: Acute Code(s): N19 - UNSPECIFIED KIDNEY FAILURE SNOMED Code(s): 28507020 Plan: This patient is a 68-year-old right-handed white male who was admitted to Hospital yesterday with symptoms of acute confusion and disorientation. Patient was recently treated at [facility] for acute renal failure and was on hemodialysis. He was discharged about 2 weeks ago and since that time according to his and other family members he has been showing a decline in his cognitive functioning at home. Yesterday he was quite confused and the family decided to bring him to the emergency room for further evaluation at [facility]. He was subtotally sent for a computed tomography scan of the brain and was admitted to Hospital. Patient has a history of chronic atrial fibrillation and is being anticoagulated with Xarelto. He also is on Tikosyn for treatment of cardiac arrhythmia and is being followed in the cardiology clinic. We have recommended the patient undergo MRI of the brain for further evaluation of possible stroke. His clinical history suggests possibility of TIA versus stroke. Review of his computed tomography scan of the brain reveals only mild to moderate ventriculomegaly and not typical for NPH. We will await his MRI results of the brain and we will give further recommendations. Patient would benefit from physical therapy consultation and possible subacute rehab once he is medically stable. His overall prognosis at this time remains guarded. Case was discussed at length with the patient as well as his and other family members at bedside. All of their questions were answered. They're aware of his guarded condition. Patient was able to complete MRI of the brain today. Results of the MRI as noted above. No evidence for normal pressure hydrocephalus based on this MRI finding. There was only moderate degree of ventriculomegaly noted. We reviewed the results of the MRI today in detail with the patient. Would recommend he be considered for subacute rehab placement. His overall prognosis at this time remains guarded. We will continue close neurological follow-up for this patient during this admission.
--- NOTE | 2018-02-14 04:59 | EEG ---
ELECTROENCEPHALOGRAM REPORT DATE OF EE02/13/2018 ELECTROENCEPHALOGRAPHIC EXAMINATION REPORT: INDICATION FOR EXAMINATION: This patient is a 68-year-old male being evaluated for altered mental status and confusion as well as possible TIA. AGE: 68 EEG FINDINGS: A routine 21 channel awake digital EEG recording was accomplished utilizing the 10-20 international system with bipolar and referential montages. The background activity in the most alert resting state consists of a low to medium amplitude, poorly developed and poorly sustained 5-6 Hz activity over the posterior head regions. This posterior rhythm attenuates to eye opening. There is a small amount of low amplitude 18-20 Hz beta activity seen maximally over the anterior head regions. Muscle and movement artifact was observed on several occasions during the tracing. Hyperventilation was not performed. Photic stimulation at flash frequencies of 2-30 Hz produced a minimal occipital driving response. No epileptiform discharges were seen. IMPRESSION: This EEG is moderately abnormal in a diffuse fashion due to slowing of the EEG background. The EEG failed to reveal any focal, lateralized, or epileptiform abnormalities. Clinical correlation is recommended. MMROSE / SARAYN: [id number] /
[2018-02-14 06:02] LABS: Glucose,Whole Blood 101 mg/dL (75-99)
[2018-02-14] MEDS: INSULIN ASPART 100 UNIT/ML 1 ML 10 ML VIAL SQ SCH (06:09)
[2018-02-14] MEDS: PANTOPRAZOLE 40 MG TABLET PO SCH (06:29)
[2018-02-14 06:45] LABS: Calcium 8.8 mg/dL (8.4-10.2)
[2018-02-14] MEDS: SPIRONOLACTONE 25 MG TAB PO SCH (08:12)
[2018-02-14] MEDS: LOSARTAN 50 MG TAB PO SCH (08:12)
[2018-02-14] MEDS: metFORMIN 500 MG TAB PO SCH (08:13)
[2018-02-14] MEDS: RIVAROXABAN 20 MG TAB PO SCH (08:13)
[2018-02-14] MEDS: METOPROLOL SUCCINATE (ER) 50 MG TAB.ER.24H PO SCH (08:13)
[2018-02-14] MEDS: BUMETANIDE 1 MG TAB PO SCH (08:13)
[2018-02-14] MEDS: BUDESONIDE 1 MG/2 ML NEBU INHALATION SCH (08:17)
[2018-02-14] MEDS: PREGABALIN 75 MG CAP PO SCH (08:20)
[2018-02-14 08:25] VITALS: BP 133/73; PULSE 119; RESP 16; TEMP 96.9
--- NOTE | 2018-02-14 08:36 | P.DS ---
Providers Date of admission: 02/11/18 23:10 Expected date of discharge: 02/14/18 Attending physician: Stefani Foster MD Consults: 02/12/18 08:13 Consult Physician Routine Consulting Provider: Gale Harrison Consult Reason/Comments: A Fib with CHF Do you want consulting provider notified?: Yes 02/12/18 08:22 Consult Physician Routine Consulting Provider: Mitul Velazquez Consult Reason/Comments: Pulmonary HTN and SOB. Do you want consulting provider notified?: Yes 02/12/18 10:30 Consult Physician Urgent Consulting Provider: Drea Sood Consult Reason/Comments: confusion Do you want consulting provider notified?: Yes Primary care physician: Paulette Dsouza [facility] Course: 67-year-old male one of Dr. Dsouza's patient who seen in October for severe dyspnea and shortness of breath and respiratory failure had a heart catheter that time patient was diagnosed with pulmonary hypertension, patient is known to have A. fib with RVR has been on Tikosyn along with anticoagulation. Patient was admitted to [facility] for 10 days was discharged after aggressive diuretic management secondary to anasarca. He then presented to Dr. Dsouza in the office in 01-14 and complain has not made any urine since Sunday. Creatinine was9.8 and bun over 100. Patient was sent to [facility] emergency center for acute kidney injury. Patient was admitted to hospital and seen also by Dr. Nelson. Dr. Lui placed a right-sided dialysis catheter and patient was started on hemodialysis. Patient was then transferred to [facility] on January 17. Patient presented yesterday to [facility] emergency center complaining of difficulty breathing, confusion and weakness as well as tremor. Patient was discharged from [facility] 2 weeks ago and was apparently doing well into 2 days ago. His reported that he was becoming increasingly confused. Patient had no chest pain. Positive chronic cough with sputum production that is green and white and foamy. Patient states that his legs were weak and he had trouble walking. He also noticed that his heart rate was high. Patient was afebrile. Heart rate running in the 120s and 130s. ABGs showed a pH of 7.3, pCO2 66, pO2 46. EKG was atrial fibrillation with rapid ventricular response. Patient had bladder scan done that showed 400 ML's of Mcgill catheter which was a traumatic insertion and he has had hematuria after. Chest x-ray shows heart failure, widened mediastinum similar to old exam. Patient was started on Cardizem drip and admitted to the selective care unit and consult placed with cardiology and pulmonary medicine. During her examination, patient was awake and alert and seemed to be at his baseline. Several hours later, nursing called the patient had a change in his mental status and was confused. CAT scan of the brain was done that revealed degenerative change with a greater central component. Normal pressure hydrocephalus in the differential. Assessment septal acute hemorrhage is limited due to artifact. No obvious sizable acute intraparenchymal hemorrhage or mass effect. Consult with neurology also added. PT and OT. Records from [facility] to be obtained. 02/13: Patient has been seen by Dr. Sood and MRI of the brain, ultrasound carotid duplex and EEG ordered. Heart rate is running in the 90s and low 100s. Pulse ox is 92% on 2 L nasal cannula. Discussed with patient's the need for subacute rehab and she is in agreement. Case management to meet with the patient and family. PT and OT evaluations are pending. 02/14: Patient has been afebrile. Pulse ox is 97% on 2 L nasal cannula. Heart rate mostly in the 80s and 90s but does jump up to the 100 and teens. He remains in atrial fibrillation. CO2 is 43. Patient denies any new complaints. He denies any shortness of breath at rest. He is scheduled for discharge to rehab at [facility] today. We have asked Dr. De La Rosa to address Discharge diagnoses: 1. Acute metabolic encephalopathy of unclear etiology possibly related to episodes of hypoxia and hypercapnia, possible TIA. 2. Acute on chronic hypercapnic and hypoxic respiratory failure. 3. Chronic kidney disease stage II with recent acute kidney injury 4. Atrial fibrillation with rapid ventricular response. 5. Pulmonary hypertension 6. Chronic diastolic heart failure. 7. Paroxysmal atrial fibrillation. 8. Restless leg syndrome 9. Hyperlipidemia 10. Diabetes: Type II 11. Chronic pain syndrome 12. Advance COPD Discharge plan: [facility] for subacute rehab Impression and plan of care have been directed as dictated by the signing physician. Larissa Warner nurse practitioner acting as scribe for signing physician. Patient Condition at Discharge: Good Plan - Discharge Summary New Discharge Prescriptions: New Insulin Aspart [NovoLOG (formulary)] 0 unit SQ ACHS vial Melatonin 3 mg PO HS PRN tablet PRN Reason: Insomnia Metoprolol Succinate (ER) [Toprol XL] 75 mg PO DAILY tab.er.24h Tamsulosin [Flomax] 0.4 mg PO PC-BRKFST cap.er.24h Continue Rivaroxaban [Xarelto] 20 mg PO DAILY #0 Albuterol Inhaler [Ventolin Hfa Inhaler] 2 puff INHALATION RT-QID PRN PRN Reason: Shortness Of Breath metFORMIN HCL 1,000 mg PO BID Pantoprazole [Protonix] 40 mg PO DAILY #30 tablet.dr Ferrous Sulfate [Feosol] 325 mg PO SA rOPINIRole HCL [Requip] 1 mg PO HS Insulin Detemir [Levemir] 10 unit SQ HS #2 syr Losartan [Cozaar] 50 mg PO DAILY #30 tab Methocarbamol [Robaxin-750] 750 mg PO TID PRN PRN Reason: Muscle Spasm rOPINIRole HCL [Requip] 0.5 mg PO HS Ergocalciferol (Vitamin D2) [Vitamin D2] 50,000 unit PO SA Budesonide [Pulmicort] 1 mg INHALATION RT-BID Albuterol Nebulized [Ventolin Nebulized] 2.5 mg INHALATION RT-Q4H PRN PRN Reason: Shortness Of Breath Spironolactone [Aldactone] 25 mg PO BID Simvastatin 40 mg PO HS Bumetanide [BUMEX] 1 mg PO BID Pregabalin [Lyrica] 150 mg PO BID #60 capsule Discontinued Budesonide-Formot 160-4.5 Mcg [Symbicort 160-4.5 Mcg Inhaler] 2 puff INHALATION RT-BID Dofetilide 500 mcg PO BID oxyCODONE HCL [Roxicodone] 15 mg PO DAILY@1200 Naloxone HCl [Narcan] 4 mg NASAL DIRECTED PRN PRN Reason: OVERDOSE oxyCODONE HCL [Roxicodone] 20 mg PO BID@ Metoprolol Succinate (ER) [Toprol Xl] 50 mg PO DAILY Discharge Medication List Rivaroxaban [Xarelto] 20 mg PO DAILY #0 06/08/15 [Rx] Albuterol Inhaler [Ventolin Hfa Inhaler] 2 puff INHALATION RT-QID PRN 11/11/15 [ History] metFORMIN HCL 1,000 mg PO BID 06/08/17 [History] Pantoprazole [Protonix] 40 mg PO DAILY #30 tablet.dr 06/23/17 [Rx] Ferrous Sulfate [Feosol] 325 mg PO SA 11/12/17 [History] rOPINIRole HCL [Requip] 1 mg PO HS 11/12/17 [History] Insulin Detemir [Levemir] 10 unit SQ HS #2 syr 11/20/17 [Rx] Losartan [Cozaar] 50 mg PO DAILY #30 tab 11/20/17 [Rx] Albuterol Nebulized [Ventolin Nebulized] 2.5 mg INHALATION RT-Q4H PRN 01/14/18 [ History] Budesonide [Pulmicort] 1 mg INHALATION RT-BID 01/14/18 [History] Bumetanide [BUMEX] 1 mg PO BID 01/14/18 [History] Ergocalciferol (Vitamin D2) [Vitamin D2] 50,000 unit PO SA 01/14/18 [History] Methocarbamol [Robaxin-750] 750 mg PO TID PRN 01/14/18 [History] Simvastatin 40 mg PO HS 01/14/18 [History] Spironolactone [Aldactone] 25 mg PO BID 01/14/18 [History] rOPINIRole HCL [Requip] 0.5 mg PO HS 01/14/18 [History] Insulin Aspart [NovoLOG (formulary)] 0 unit SQ ACHS vial 02/14/18 [Rx] Melatonin 3 mg PO HS PRN tablet 02/14/18 [Rx] Metoprolol Succinate (ER) [Toprol XL] 75 mg PO DAILY tab.er.24h 02/14/18 [Rx] Pregabalin [Lyrica] 150 mg PO BID #60 capsule 02/14/18 [Rx] Tamsulosin [Flomax] 0.4 mg PO PC-BRKFST cap.er.24h 02/14/18 [Rx] Follow up Appointment(s)/Referral(s): Paulette Dsouza MD [Primary Care Provider] - As Needed () Patient Instructions/Handouts: Heart Failure (DC), COPD (Chronic Obstructive Pulmonary Disease) (DC), Chronic Lung Disease and Infection Prevention (DC)
[2018-02-14] MEDS ORDERED: TAMSULOSIN 0.4 MG CAP.ER.24H PO SCH (09:30)
[2018-02-14 11:23] LABS: Glucose,Whole Blood 125 mg/dL (75-99)
--- NOTE | 2018-02-14 11:36 | P.PN ---
Subjective Progress Note Date: 02/14/18 Principal diagnosis: Acute on chronic hypoxic/hypercapnic respiratory failure secondary to an acute exacerbation of diastolic congestive heart failure, narcotic affect, morbid obesity. This is a very pleasant 68-year-old gentleman who follows with Dr. Dsouza as his primary care physician. He has a history of coronary artery disease with previous coronary artery bypass grafting in 2007 and prior to that multiple stent placements, peripheral vascular disease with previous fem-pop bypass, colon cancer with previous resection, anxiety/depression, previous alcoholism, hyperlipidemia, hypertension, diabetes mellitus, atrial fibrillation anticoagulated with Xarelto and rate controlled with Tikosyn. He also has a history of obstructive sleep apnea utilizing CPAP in the outpatient setting and severe Gold stage III chronic obstructive pulmonary disease with an FEV1 value of 40% of predicted. He is maintained on Symbicort and albuterol. He follows with Dr. Velazquez in our office for the same. He was recently discharged from here on 01/16/2018 after being admitted again for acute renal failure. He presented to the emergency room again yesterday with generalized weakness and confusion. The patient's stated he was having tremors. He is also unable to use his phone. His chest x-ray showed evidence of congestive heart failure with previous cardiac surgery and a widened mediastinum. These were similar to the chest x-ray in December and relates to lipomatosis which was noted in the CAT scan of August 2017. He remains in atrial fibrillation current heart rate 110' s. Computed tomography scan of the brain reveals degenerative changes with a central component with normal pressure hydrocephalus in the differential. There was too much artifact to rule out subacute hemorrhage but no sizable intracranial hemorrhage or mass effect was noted. The patient was seen in consultation today on the selective care unit. He does remain somewhat confused however he has been still receiving his oxycodone 20 mg twice a day with 15 mg at noontime. Morning blood gases on 28% FiO2 revealed a pO2 of 55, pCO2 of 76 and a pH of 7.33. His narcotics have been discontinued. He is currently maintaining good O2 saturations in the low 90s on 2 L/m per nasal cannula. He's been afebrile. No tachycardia, no tachypnea. Hemodynamically stable. He is continued on Symbicort and albuterol. The patient was seen again today 02/14/2018 in follow-up on the selective care unit. He is much more awake and alert today as compared to yesterday. He is currently sitting up in a chair at the bedside. He denies any worsening shortness of breath, cough or congestion. He did wear the BiPAP throughout the evening. He is currently maintaining good O2 saturations in the high 90s on 2 L /m per nasal cannula. He's been afebrile. Blood cultures reveal no growth. Bicarb 43. Creatinine 1.03. Objective - Vital Signs Vital signs: Vital Signs Temp 96.9 F L 02/14/18 08:00 Pulse 86 02/14/18 08:23 Resp 16 02/14/18 08:00 BP 133/73 02/14/18 08:00 Pulse Ox 97 02/14/18 08:00 Intake & Output 02/13/18 02/14/18 02/14/18 18:59 06:59 18:59 Intake Total 660 Output Total 900 1260 Balance -240 -1260 Weight 128.7 kg Intake: Oral 660 Output: Urine 900 1260 Other: Voiding Method Indwelling Catheter Indwelling Catheter Indwelling Catheter - Exam - Constitutional General appearance: morbidly obese - EENT Eyes: EOMI, PERRLA ENT: hearing grossly normal Ears: bilateral: normal - Neck Neck: normal ROM Carotids: bilateral: upstroke normal Thyroid: bilateral: normal size - Respiratory Respiratory: bilateral: rales - Cardiovascular Rhythm: irregularly irregular Heart sounds: normal: S1, S2 - Gastrointestinal General gastrointestinal: normal bowel sounds - Integumentary Integumentary: normal turgor - Musculoskeletal Musculoskeletal: generalized weakness - Labs CBC & Chem 7: 02/12/18 05:37 02/14/18 05:54 Labs: Abnormal Lab Results - Last 24 Hours (Table) 02/13/18 02/13/18 02/14/18 Range/Units 16:20 20:53 05:54 Chloride 91 L (98-107) mmol/L Carbon Dioxide 43 H* (22-30) mmol/L POC Glucose (mg/dL) 136 H 151 H (75-99) mg/dL 02/14/18 02/14/18 Range/Units 06:00 11:19 Chloride (98-107) mmol/L Carbon Dioxide (22-30) mmol/L POC Glucose (mg/dL) 101 H 125 H (75-99) mg/dL Microbiology - Last 24 Hours (Table) 02/11/18 21:12 Blood Culture - Preliminary Blood No Growth after 48 hours Assessment and Plan Assessment: Impression: #1 Acute on chronic hypercapnic/hypoxic respiratory failure secondary to acute exacerbation of diastolic congestive heart failure, narcotic affect, morbid obesity #2 Acute on chronic diastolic congestive heart failure. #3 Altered mental status secondary to above. #4 Recent history of acute renal failure. #5 Diabetes mellitus. #6 Atrial fibrillation, anticoagulated with Xarelto. On Tikosyn. Previous ablation. #7 Obstructive sleep apnea intolerant to utilizing CPAP in the outpatient setting. #8 Chronic obstructive pulmonary disease, oxygen dependent, with an FEV1 value of 40% of predicted. #9 Previous smoking history. #10 Coronary artery disease with multiple stent placements and subsequent coronary artery bypass grafting 2007. #11 History of colon cancer with colectomy. #12 History of anxiety/depression. #13 Poor overall functional performance based on the above-mentioned multiple comorbidities. Plan: The patient was seen and evaluated by Dr. De La Rosa. He is cleared for discharge from the pulmonary standpoint. Continue his home pulmonary medications. Continue BiPAP at the extended care facility. I, the cosigning physician, performed a history & physical examination of the patient. Lungs sounds with faint crackles in the bilateral posterior bases. Diminished. Maintaining good O2 saturations in the 90s on 2 L/m per nasal cannula. I discussed the assessment and plan of care with my nurse practitioner , Peyton Watts. I attest to the above consultation as dictated by her.
[2018-02-15] MEDS ORDERED: RIVAROXABAN 20 MG TAB PO SCH (09:00)
[2018-02-16] MEDS ORDERED: FERROUS SULFATE 325 MG TAB PO SCH (08:22)
[2018-02-16] MEDS ORDERED: ERGOCALCIFEROL 50,000 UNIT CAP PO SCH (12:00)
--- NOTE | 2018-02-18 10:52 | CDI ---
Last Revision, June 2017 Documentation Clarification Form Date: 02/18/2018 10:34:04 AM From: Liana Phillip Phone: If you have a question about this query, please contact Lynda [facility] at [phone] between 8am and 5pm. Admit Date: 02/11/2018 11:10:00 PM Patient Name: Oral Styles Visit Number: [id number] Discharge Date:02/14/18 ATTENTION: The Clinical Documentation Specialists (CDI) and [facility] Coding Staff appreciate your assistance in clarifying documentation. Please respond to the clarification below the line at the bottom and electronically sign. The CDI & [facility] Coding staff will review the response and follow-up if needed. Please note: Queries are made part of the Legal Health Record. If you have any questions, please contact the author of this message via ITS. Hector Crowder MD Patient admitted with severe dyspnea documented as Acute and Chronic hypoxic and hypercapnic respiratory failure. Cardiology documents ARF is due to acute and chronic diastolic CHF or narcotic affect.. DCS documents chronic diastolic CHF. What is the source of the acute and chronic respiratory failure? History/Risk Factors: diastolic CHF, BNP 1190 on admit Clinical Indicators: CXR showing CHF, HR 120s and 130s. ABGs pH 7.3, pCO2 66, PO2 46 Treatment: Cardizem drip admitted to selective care unit, cardiology consult In your opinion what is the etiology of the acute and chronic hypoxic and hypercapnic respiratory failure? Acute and chronic diastolic CHF narcotic affect Other explanation of clinical findings Unable to determine (no explanation for clinical findings) MTDD
== END 2018-02-14 11:33 | DRG 189 ==
LOC: EC 19:43 → 6SEL 23:10
PROVIDERS: ADMIT Internal Medicine; ATTEND Internal Medicine
DX: J96.21 Acute and chronic respiratory failure with hypoxia (principal); G93.41 Metabolic encephalopathy; G45.9 Transient cerebral ischemic attack, unspecified; I13.0 Hypertensive heart and chronic kidney disease with heart failure and stage 1 through stage 4 chronic kidney disease, or unspecified chronic kidney disease; T83.83XA Hemorrhage due to genitourinary prosthetic devices, implants and grafts, initial encounter; I48.92 Unspecified atrial flutter; I50.32 Chronic diastolic (congestive) heart failure; J96.22 Acute and chronic respiratory failure with hypercapnia; E11.22 Type 2 diabetes mellitus with diabetic chronic kidney disease; E11.51 Type 2 diabetes mellitus with diabetic peripheral angiopathy without gangrene; E66.01 Morbid (severe) obesity due to excess calories; Z68.37 Body mass index [BMI] 37.0-37.9, adult; E78.5 Hyperlipidemia, unspecified; F10.21 Alcohol dependence, in remission; G25.81 Restless legs syndrome; G47.33 Obstructive sleep apnea (adult) (pediatric); G89.4 Chronic pain syndrome; G93.89 Other specified disorders of brain; H91.90 Unspecified hearing loss, unspecified ear; I25.10 Atherosclerotic heart disease of native coronary artery without angina pectoris; I25.2 Old myocardial infarction; I27.20 Pulmonary hypertension, unspecified; I48.0 Paroxysmal atrial fibrillation; I48.2 Chronic atrial fibrillation; J44.9 Chronic obstructive pulmonary disease, unspecified; K21.9 Gastro-esophageal reflux disease without esophagitis; N18.2 Chronic kidney disease, stage 2 (mild); Z79.01 Long term (current) use of anticoagulants; Z79.4 Long term (current) use of insulin; Z79.51 Long term (current) use of inhaled steroids; Z79.899 Other long term (current) drug therapy; Z82.49 Family history of ischemic heart disease and other diseases of the circulatory system; Z85.068 Personal history of other malignant neoplasm of small intestine; Z90.49 Acquired absence of other specified parts of digestive tract; Z87.891 Personal history of nicotine dependence; Z95.1 Presence of aortocoronary bypass graft; Z95.5 Presence of coronary angioplasty implant and graft; Z95.828 Presence of other vascular implants and grafts; Z96.652 Presence of left artificial knee joint; Z99.81 Dependence on supplemental oxygen; Z89.422 Acquired absence of other left toe(s); K57.90 Diverticulosis of intestine, part unspecified, without perforation or abscess without bleeding; T40.605A Adverse effect of unspecified narcotics, initial encounter; M54.5 Low back pain; R31.9 Hematuria, unspecified; Y84.6 Urinary catheterization as the cause of abnormal reaction of the patient, or of later complication, without mention of misadventure at the time of the procedure; R20.2 Paresthesia of skin; Z87.19 Personal history of other diseases of the digestive system; R39.11 Hesitancy of micturition; Z77.098 Contact with and (suspected) exposure to other hazardous, chiefly nonmedicinal, chemicals
CPT/HCPCS: 36415; 36600; 51702; 51798; 70450; 70551; 71046; 80048; 80053; 81003; 82550; 82553; 82805; 83605; 83735; 83880; 84484; 85025; 85610; 85730; 87040; 93005; 93880; 94640; 95819; 96365; 99285

== ENCOUNTER 2018-02-27 22:02 | Inpatient (IN) | payer MEDICARE, OTHER ==
[2018-02-27] MEDS ORDERED: IPRATROPIUM-ALBUTEROL 3 ML NEB INHALATION STA ×2 (22:29→23:43)
--- NOTE | 2018-02-27 22:32 | ED ---
General Adult HPI - General Chief complaint: Shortness of Breath Stated complaint: LANDY Time Seen by Provider: 02/27/18 22:04 Source: patient, family, RN notes reviewed Mode of arrival: EMS Limitations: no limitations - History of Present Illness Initial comments: Patient is a pleasant 68-year-old male presenting to the emergency department with difficulty in breathing. Onset of symptoms was the past couple of days. Patient does have cough and congestion however no sputum production. Patient did have a fever today of 102. Patient does have some leg swelling, no calf tenderness. No chest pain. Patient does have a history of COPD and CHF similar symptoms previously. - Related Data Home Medications Medication Instructions Recorded Confirmed Albuterol Inhaler [Ventolin Hfa 2 puff INHALATION RT-QID PRN 11/11/15 02/11/18 Inhaler] metFORMIN HCL 1,000 mg PO BID 06/08/17 02/11/18 Ferrous Sulfate [Feosol] 325 mg PO SA 11/12/17 02/11/18 rOPINIRole HCL [Requip] 1 mg PO 11/12/17 02/11/18 Albuterol Nebulized [Ventolin 2.5 mg INHALATION RT-Q4H PRN 01/14/18 02/11/18 Nebulized] Budesonide [Pulmicort] 1 mg INHALATION RT-BID 01/14/18 02/11/18 Bumetanide [BUMEX] 1 mg PO BID 01/14/18 02/11/18 Ergocalciferol (Vitamin D2) 50,000 unit PO 01/14/18 02/11/18 [Vitamin D2] Methocarbamol [Robaxin-750] 750 mg PO TID PRN 01/14/18 02/11/18 Simvastatin 40 mg PO 01/14/18 02/11/18 Spironolactone [Aldactone] 25 mg PO BID 01/14/18 02/11/18 rOPINIRole HCL [Requip] 0.5 mg PO HS 01/14/18 02/11/18 Previous Rx's Medication Instructions Recorded Rivaroxaban [Xarelto] 20 mg PO DAILY #0 06/08/15 Pantoprazole [Protonix] 40 mg PO DAILY #30 tablet. 06/23/17 Insulin Detemir [Levemir] 10 unit SQ HS #2 syr 11/20/17 Losartan [Cozaar] 50 mg PO DAILY #30 tab 11/20/17 Insulin Aspart [NovoLOG 0 unit SQ ACHS vial 02/14/18 (formulary)] Melatonin 3 mg PO HS PRN tablet 02/14/18 Metoprolol Succinate (ER) [Toprol 75 mg PO DAILY tab.er.24h 02/14/18 XL] Pregabalin [Lyrica] 150 mg PO BID #60 capsule 02/14/18 Tamsulosin [Flomax] 0.4 mg PO PC-BRKFST cap.er.24h 02/14/18 Allergies Allergy/AdvReac Type Severity Reaction Status Date / Time No Known Allergies Allergy Verified 02/27/18 22:25 Review of Systems ROS Statement: Those systems with pertinent positive or pertinent negative responses have been documented in the HPI. ROS Other: All systems not noted in ROS Statement are negative. Constitutional: Reports: fever Eyes: Denies: eye pain ENT: Denies: ear pain Respiratory: Reports: cough, dyspnea Cardiovascular: Denies: chest pain Endocrine: Reports: fatigue Gastrointestinal: Denies: abdominal pain Genitourinary: Denies: dysuria Musculoskeletal: Denies: back pain Skin: Denies: rash Neurological: Denies: weakness Past Medical History Past Medical History: Atrial Fibrillation, Atrial Flutter, Coronary Artery Disease (CAD), Cancer, Heart Failure, COPD, Diabetes Mellitus, GERD/Reflux, GI Bleed, Hearing Disorder / Deafness, Hyperlipidemia, Hypertension, Myocardial Infarction (VA), Renal Disease, Sleep Apnea/CPAP/BIPAP, Vascular Disorder Additional Past Medical History / Comment(s): Pt states he was just discharged from [facility] on Sunday, January 11, 2018 where he was treated for Afib RVR/CHF and exacerbation of his COPD. 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 kidney failure Last Myocardial Infarction Date:: 1997 History of Any Multi-Drug Resistant Organisms: None Reported Past Surgical History: Back Surgery, Bowel Resection, Cardiac Ablation, Coronary Bypass/CABG, Heart Catheterization, Heart Catheterization With Stent, Joint Replacement, Orthopedic Surgery Additional Past Surgical History / Comment(s): FAVIAN, cardiac ablation, several cardiac caths, PCI with stents-total of 2007 CABG 3 vessel, 14 inches small bowel removed for cancerous tumor, partial L knee replacement, R leg vascular surgery, EGD/colonoscopy, endocapsule, L toe middle toe amp, low back fusion, bilateral cataract removals. Past Anesthesia/Blood Transfusion Reactions: No Reported Reaction Date of Last Stent Placement:: 1997 Past Psychological History: No Psychological Hx Reported Smoking Status: Former smoker Past Alcohol Use History: Rare Past Drug Use History: None Reported - Past Family History Father Family Medical History: Chest Pain / Angina, Coronary Artery Disease (CAD), Myocardial Infarction ([place]) Additional Family Medical History / Comment(s): Father of a VA at the age of 54yrs. Brother(s) Family Medical History: Chest Pain / Angina, Coronary Artery Disease (CAD), Myocardial Infarction (VA) Additional Family Medical History / Comment(s): Brother had a VA at the age of 58 yrs. He is living. Son(s) Family Medical History: Musculoskeletal Disorder Mother Family Medical History: Vascular Disorder Additional Family Medical History / Comment(s): of brain aneurysm at age 34 General Exam Limitations: no limitations General appearance: alert, in no apparent distress Head exam: Present: atraumatic Eye exam: Present: normal appearance, PERRL ENT exam: Present: normal oropharynx Neck exam: Present: normal inspection Respiratory exam: Present: wheezes, rales Cardiovascular Exam: Present: bradycardia, irregular rhythm GI/Abdominal exam: Present: soft. Absent: tenderness Extremities exam: Present: pedal edema. Absent: calf tenderness Neurological exam: Present: alert Psychiatric exam: Present: normal affect, normal mood Skin exam: Present: normal color Course Vital Signs 02/27/18 02/27/18 02/27/18 22:19 22:40 22:50 Temperature 98.4 F Pulse Rate 110 H 101 H 102 H Respiratory 20 Rate Blood Pressure 92/58 O2 Sat by Pulse 92 L Oximetry 02/27/18 02/27/18 02/27/18 23:11 23:50 23:55 Temperature Pulse Rate 105 H 111 H Respiratory 20 20 22 Rate Blood Pressure 86/50 79/46 O2 Sat by Pulse 93 L 92 L Oximetry 02/28/18 02/28/18 02/28/18 00:08 00:18 01:03 Temperature 97.9 F Pulse Rate 106 H 117 H 103 H Respiratory 21 22 Rate Blood Pressure 86/53 96/55 O2 Sat by Pulse 97 93 L Oximetry - Reevaluation(s) Reevaluation #1: 02/28/18 00:09 There is suspicion for sepsis diagnosed at 0009. Blood culture and lactic acid have been ordered. IV antibiotics have been ordered. Fluid bolus ordered based on ideal bodyweight of 77.6 kg. 30 mL/kg bolus is 2328ml. 02/28/18 00:[address] Olea, who will consult. He recommends central line for Levophed if needed. EKG Findings - EKG Comments: EKG Findings:: A. fib with a rate of 104. QRS 94. QT 346. QTc 454. Left axis. Inferior T wave inversion. Normal QRS. Procedures - Central Line Placement Right SC Consent Obtained: verbal consent, written consent Time Out Performed: Yes Patient Placed on Monitor/Pulse Ox: Yes MD Prep: mask, gown, gloves Central Line Prep: Chlorhexidine scrub Local Anesthesia Used: Lidocaine 1% Amount of Anesthesia Used (mls): 2 Ultrasound Used for Placement: No Complications: none Additional Comments: Unable to access subclavian vein despite 2 attempts. Right Femoral Consent Obtained: verbal consent, written consent Time Out Performed: Yes Patient Placed on Monitor/Pulse Ox: Yes Prep: mask, gown, gloves Central Line Prep: Chlorhexidine scrub Local Anesthesia Used: Lidocaine 1% Amount of Anesthesia Used (mls): 2 Ultrasound Used for Placement: No Central Line Lumen Inserted: triple Central Line Position: good blood return, all ports aspirated, flushed, capped Dressing Applied: Tegaderm Patient Tolerated Procedure: well Additional Comments: Femoral artery was believed to be struck on first attempt. Pressure was held and hemostasis was obtained. - Sepsis Sepsis Focused Exam #1 Time Sepsis Criteria Met: 00:09 Sepsis Focused Exam Date: 02/28/18 Sepsis Focused Exam Time: 01:07 Sepsis Focused Exam Complete: Yes Vital Signs & RN Notes Reviewed: Yes Capillary Refill: < 2 Seconds: Fingers, Toes Peripheral Pulses: Normal: Radial (R), Radial (L) Skin Color: Normal for Patient Respiratory Exam: wheezes Cardiovascular Exam: tachycardia Medical Decision Making - Medical Decision Making Patient reevaluated and still feels short of breath. Patient oxygen increased to 3 L and patient did feel somewhat better. Lung sounds have actually improved some. Patient's blood pressure has started to drop. states patient did have fever of 102 earlier today. Secondary to fever there is suspicion for pneumonia and suspicion for sepsis. Case was discussed in detail with Dr. Powell, who will admit for Dr. Dsouza. Consult will be placed for Dr. brower patient has previously seen. - Lab Data Result diagrams: 02/27/18 22:16 02/27/18 22:16 Lab Results 02/27/18 02/27/18 02/27/18 Range/Units 22:16 22:16 22:16 WBC 12.2 H (3.8-10.6) k/uL RBC 3.26 L (4.30-5.90) m/uL Hgb 9.6 L (13.0-17.5) gm/dL Hct 29.8 L (39.0-53.0) % MCV 91.5 (80.0-100.0) fL MCH 29.4 (25.0-35.0) pg MCHC 32.1 (31.0-37.0) g/dL RDW 17.7 H (11.5-15.5) % Plt Count 228 (150-450) k/uL Neutrophils % 79 % Lymphocytes % 13 % Monocytes % 4 % Eosinophils % 2 % Basophils % 0 % Neutrophils # 9.7 H (1.3-7.7) k/uL Lymphocytes # 1.5 (1.0-4.8) k/uL Monocytes # 0.5 (0-1.0) k/uL Eosinophils # 0.2 (0-0.7) k/uL Basophils # 0.1 (0-0.2) k/uL Hypochromasia Slight Anisocytosis Slight PT (9.0-12.0) sec INR (<1.2) APTT (22.0-30.0) sec Sodium 134 L (137-145) mmol/L Potassium 4.8 (3.5-5.1) mmol/L Chloride 83 L (98-107) mmol/L Carbon Dioxide 40 H* (22-30) mmol/L Anion Gap 11 mmol/L BUN 57 H (9-20) mg/dL Creatinine 1.77 H (0.66-1.25) mg/dL Est GFR (CKD-EPI)AfAm 45 (>60 ml/min/1.73 sqM) Est GFR (CKD-EPI)NonAf 39 (>60 ml/min/1.73 sqM) Glucose 171 H (74-99) mg/dL Plasma Lactic Acid Barrett (0.7-2.0) mmol/L Calcium 8.3 L (8.4-10.2) mg/dL Total Bilirubin 0.5 (0.2-1.3) mg/dL AST 19 (17-59) U/L ALT 30 (21-72) U/L Alkaline Phosphatase 67 (38-126) U/L Total Creatine Kinase 23 L (55-170) U/L CK-MB (CK-2) 0.5 (0.0-2.4) ng/mL CK-MB (CK-2) Rel Index 2.2 Troponin I 0.014 (0.000-0.034) ng/mL NT-Pro-B Natriuret Pep pg/mL Total Protein 5.9 L (6.3-8.2) g/dL Albumin 3.4 L (3.5-5.0) g/dL 02/27/18 02/27/18 02/28/18 Range/Units 22:16 22:16 00:12 WBC (3.8-10.6) k/uL RBC (4.30-5.90) m/uL Hgb (13.0-17.5) gm/dL Hct (39.0-53.0) % MCV (80.0-100.0) fL MCH (25.0-35.0) pg MCHC (31.0-37.0) g/dL RDW (11.5-15.5) % Plt Count (150-450) k/uL Neutrophils % % Lymphocytes % % Monocytes % % Eosinophils % % Basophils % % Neutrophils # (1.3-7.7) k/uL Lymphocytes # (1.0-4.8) k/uL Monocytes # (0-1.0) k/uL Eosinophils # (0-0.7) k/uL Basophils # (0-0.2) k/uL Hypochromasia Anisocytosis PT 12.9 H (9.0-12.0) sec INR 1.4 H (<1.2) APTT 34.4 H (22.0-30.0) sec Sodium (137-145) mmol/L Potassium (3.5-5.1) mmol/L Chloride (98-107) mmol/L Carbon Dioxide (22-30) mmol/L Anion Gap mmol/L BUN (9-20) mg/dL Creatinine (0.66-1.25) mg/dL Est GFR (CKD-EPI)AfAm (>60 ml/min/1.73 sqM) Est GFR (CKD-EPI)NonAf (>60 ml/min/1.73 sqM) Glucose (74-99) mg/dL Plasma Lactic Acid Barrett 1.1 (0.7-2.0) mmol/L Calcium (8.4-10.2) mg/dL Total Bilirubin (0.2-1.3) mg/dL AST (17-59) U/L ALT (21-72) U/L Alkaline Phosphatase (38-126) U/L Total Creatine Kinase (55-170) U/L CK-MB (CK-2) (0.0-2.4) ng/mL CK-MB (CK-2) Rel Index Troponin I (0.000-0.034) ng/mL NT-Pro-B Natriuret Pep 1620 pg/mL Total Protein (6.3-8.2) g/dL Albumin (3.5-5.0) g/dL - Radiology Data Radiology results: image reviewed (Chest x-ray shows chronic infiltrate and atelectasis. No definite heart failure. Cardiomegaly.) Critical Care Time Critical Care Time: Yes Total Critical Care Time: 47 Disposition Clinical Impression: Pneumonia, Sepsis Disposition: ADMITTED IP TO THIS [facility] Condition: Critical Decision Time: 00:12
[2018-02-27 23:01] LABS: Anisocytosis Slight; Basophils # (A) 0.1 k/uL (0-0.2); Basophils % (A) 0 %; Eosinophils # (A) 0.2 k/uL (0-0.7); Eosinophils % (A) 2 %; HCT 29.8 % (39.0-53.0); HGB 9.6 gm/dL (13.0-17.5); Hypochromasia Slight; Lymphocytes # (A) 1.5 k/uL (1.0-4.8); Lymphocytes % (A) 13 %; MCH 29.4 pg (25.0-35.0); MCHC 32.1 g/dL (31.0-37.0); MCV 91.5 fL (80.0-100.0); Mean Platelet Volume 7.2; Monocytes # (A) 0.5 k/uL (0-1.0); Monocytes % (A) 4 %; Neutrophils # (A) 9.7 k/uL (1.3-7.7); Neutrophils % (A) 79 %; Platelet Count 228 k/uL (150-450); RBC 3.26 m/uL (4.30-5.90); RDW 17.7 % (11.5-15.5); WBC 12.2 k/uL (3.8-10.6)
[2018-02-27 23:10] LABS: INR 1.4 (<1.2); Partial Thromboplastin Time 34.4 sec (22.0-30.0); Prothrombin Time 12.9 sec (9.0-12.0)
--- NOTE | 2018-02-27 23:10 | XR ---
EXAMINATION TYPE: XR chest 2V DATE OF EXAM: 02/27/2018 COMPARISON: 02/11/2018 HISTORY: Difficulty breathing TECHNIQUE: Frontal and lateral views of the chest are obtained. FINDINGS: Heart appears enlarged. There are sternal wires. There is no gross heart failure. There is some mild infiltrate and atelectasis at the lung bases. There are chest leads. IMPRESSION: There is some chronic infiltrate and atelectasis at the lung bases similar to old exam. No definite heart failure. Cardiomegaly.
[2018-02-27 23:18] LABS: Albumin 3.4 g/dL (3.5-5.0); Calcium 8.3 mg/dL (8.4-10.2); Potassium 4.8 mmol/L (3.5-5.1); Total Bilirubin 0.5 mg/dL (0.2-1.3); Total Protein 5.9 g/dL (6.3-8.2)
[2018-02-27 23:24] LABS: Creatine Kinase MB 0.5 ng/mL (0.0-2.4); Troponin I 0.014 ng/mL (0.000-0.034)
[2018-02-27] MEDS ORDERED: SODIUM CHLORIDE 0.9% 250 ML IV ONE (23:51)
[2018-02-28] MEDS ORDERED: SODIUM CHLORIDE 0.9% 1,000 ML IV STA ×2 (00:10)
[2018-02-28] MEDS ORDERED: SODIUM CHLORIDE 0.9% 100 ML IV STA (00:10)
[2018-02-28] MEDS ORDERED: PNEUMONIA PROTOCOL UTILIZED 1 EACH MISC PO PRN (00:24)
[2018-02-28] MEDS ORDERED: PIPERACILLIN-TAZOBACTAM 3.375 GM in DEXTROSE/WATER 1 50ML.BAG IVPB STA (00:24)
[2018-02-28] MEDS ORDERED: LEVOFLOXACIN 750MG-D5W PMX 750 MG in DEXTROSE/WATER 1 150ML.BAG IVPB STA (00:24)
[2018-02-28] MEDS ORDERED: IPRATROPIUM-ALBUTEROL 3 ML NEB INHALATION PRN (00:24)
[2018-02-28] MEDS ORDERED: NOREPINEPHRINE 4 MG in SODIUM CHLORIDE 0.9% 250 ML IV SCH (01:00)
--- NOTE | 2018-02-28 01:22 | XR ---
EXAMINATION TYPE: XR chest 1V portable DATE OF EXAM: 02/28/2018 COMPARISON: Yesterday HISTORY: Difficulty breathing TECHNIQUE: Single frontal view of the chest is obtained. FINDINGS: Heart is enlarged. There are sternal wires. There are chest leads. There is poor separatio n with some patchy infiltrate at both lung bases. I see no definite heart failure. IMPRESSION: Thyromegaly. Bilateral basilar pulmonary infiltrates and atelectasis without much change compared to last exam. Mild heart failure not entirely excluded.
[2018-02-28 01:32] LABS: Glucose,Whole Blood 177 mg/dL (75-99)
[2018-02-28] MEDS ORDERED: FUROSEMIDE 10 MG/ML 4 ML VIAL IV STA (03:35)
[2018-02-28] MEDS ORDERED: ACETAMINOPHEN TAB 325 MG TAB PO PRN (03:58)
[2018-02-28] MEDS ORDERED: NALOXONE 0.4 MG/ML 1 ML VIAL IV PRN (03:58)
[2018-02-28] MEDS ORDERED: INSULIN REGULAR BOLUS (FROM DRIP BAG) IV PRN (04:03)
[2018-02-28] MEDS ORDERED: NOREPINEPHRINE 16 MG in SODIUM CHLORIDE 0.9% 250 ML IV SCH (04:04)
--- NOTE | 2018-02-28 04:09 | XR ---
EXAMINATION TYPE: XR chest 1V DATE OF EXAM: 02/28/2018 COMPARISON: NONE HISTORY: Possible subcutaneous air. TECHNIQUE: Single frontal view of the chest is obtained. FINDINGS: Heart is enlarged. There is some infiltrate and atelectasis at the lung bases. There is no gross heart failure. There are sternal wires. There is no pneumothorax. I see no soft tissue air. IMPRESSION: Infiltrate and atelectasis at the lung bases without change. Cardiomegaly. No significan t change.
[2018-02-28] MEDS: methylPREDNISolone SOD SUCCI 125 MG/2 ML VIAL IV SCH ×4 (04:20→18:33)
[2018-02-28] MEDS: SODIUM CHLORIDE 0.9% 1,000 ML IV SCH (04:27)
[2018-02-28 04:39] LABS: Appearance,Urine Clear (Clear); Bilirubin,Urine Negative (Negative); Blood,Urine Negative (Negative); Color,Urine Yellow; Glucose,Urine (UA) Negative (Negative); Ketones,Urine Negative (Negative); Leukocyte Esterase,Urine Negative (Negative); Nitrite,Urine Negative (Negative); Protein,Urine Negative (Negative); Specific Gravity,Urine 1.012 (1.001-1.035); Urobilinogen,Urine <2.0 mg/dL (<2.0)
[2018-02-28 04:48] LABS: ABG Base Excess 16.5 mmol/L; ABG Oxygen Saturation 89.9 % (94-97); ABG PH 7.33 (7.35-7.45); ABG PO2 64 mmHg (83-108); ABG TCO2 45 mmol/L (19-24)
[2018-02-28 04:53] LABS: ABG HCO3 43 mmol/L (21-25); ABG PCO2 82 mmHg (35-45)
[2018-02-28 04:56] LABS: Anisocytosis Slight; Basophils % (A) 0 %; Eosinophils # (A) 0.2 k/uL (0-0.7); Eosinophils % (A) 2 %; HCT 30.1 % (39.0-53.0); HGB 9.3 gm/dL (13.0-17.5); Hypochromasia Moderate; Lymphocytes # (A) 1.3 k/uL (1.0-4.8); Lymphocytes % (A) 13 %; MCH 28.9 pg (25.0-35.0); MCHC 30.8 g/dL (31.0-37.0); MCV 93.9 fL (80.0-100.0); Mean Platelet Volume 7.6; Monocytes # (A) 0.5 k/uL (0-1.0); Monocytes % (A) 5 %; Neutrophils # (A) 7.8 k/uL (1.3-7.7); Neutrophils % (A) 78 %; Platelet Count 219 k/uL (150-450); RBC 3.21 m/uL (4.30-5.90); RDW 17.7 % (11.5-15.5)
[2018-02-28 05:02] LABS: Glucose,Whole Blood 196 mg/dL (75-99)
[2018-02-28] MEDS: INSULIN REGULAR 100 UNIT in SODIUM CHLORIDE 0.9% 100 ML IV SCH ×3 (05:02→23:39)
[2018-02-28 05:19] LABS: Magnesium 1.9 mg/dL (1.6-2.3); Phosphorus 5.9 mg/dL (2.5-4.5); Potassium 4.5 mmol/L (3.5-5.1)
[2018-02-28 06:08] VITALS: BMI 41.3
[2018-02-28 06:17] LABS: Glucose,Whole Blood 194 mg/dL (75-99)
[2018-02-28 07:15] LABS: Glucose,Whole Blood 179 mg/dL (75-99)
[2018-02-28] MEDS: IPRATROPIUM-ALBUTEROL 3 ML NEB INHALATION SCH ×4 (07:56→21:14)
[2018-02-28] MEDS ORDERED: HEPARIN SODIUM,PORCINE 5,000 UNIT/ML 1 ML VIAL SQ SCH (08:00)
[2018-02-28 08:40] LABS: Glucose,Whole Blood 199 mg/dL (75-99)
[2018-02-28] MEDS: MAGNESIUM SULFATE-D5W PMX 1 GM in DEXTROSE/WATER 1 100ML.BAG IVPB SCH ×2 (08:56→10:28)
[2018-02-28] MEDS: PANTOPRAZOLE 40 MG TABLET PO SCH (08:56)
[2018-02-28] MEDS: PIPERACILLIN-TAZOBACTAM 3.375 GM in DEXTROSE/WATER 1 50ML.BAG IVPB SCH ×2 (08:56→15:29)
[2018-02-28 09:18] LABS: Glucose,Whole Blood 194 mg/dL (75-99)
[2018-02-28 10:06] LABS: Glucose,Whole Blood 347 mg/dL (75-99)
[2018-02-28 11:06] LABS: Glucose,Whole Blood 292 mg/dL (75-99)
[2018-02-28] MEDS ORDERED: NON-FORMULARY DRUG (Acetaminophen [Tylenol Arthritis] 650 MG) PO PRN (12:07)
[2018-02-28] MEDS ORDERED: MAGNESIUM HYDROXIDE 2,400 MG/10 ML CUP PO PRN (12:07)
[2018-02-28] MEDS ORDERED: BISACODYL 10 MG SUPP RECTAL PRN (12:07)
[2018-02-28] MEDS ORDERED: MELATONIN 3 MG TABLET PO PRN (12:07)
[2018-02-28] MEDS ORDERED: DILTIAZEM DRIP BOLUS FROM BAG 1 MG SOLN IV ONE (12:15)
[2018-02-28 12:22] LABS: Glucose,Whole Blood 241 mg/dL (75-99)
[2018-02-28] MEDS: DILTIAZEM 50 MG in SODIUM CHLORIDE 0.9% 40 ML IV SCH ×2 (13:02→16:39)
[2018-02-28 13:11] LABS: Glucose,Whole Blood 276 mg/dL (75-99)
[2018-02-28] MEDS: guaiFENesin 600 MG TABLET.ER PO SCH ×2 (13:15→21:08)
--- NOTE | 2018-02-28 13:27 | P.HPIM ---
History of Present Illness H&P Date: 02/28/18 Chief Complaint: Fever with increasing respiratory difficulties, cough 67-year-old male one of Dr. Dsouza's patient who seen in 02/12/2018 for acute on chronic hypercapnic and hypoxemic respiratory failure, advanced COPD with acute metabolic encephalopathy of unclear etiology possibly related to hypoxemia and hypercapnia, possible TIA. he currently is in [facility] for subacute rehabilitation,. Medications newly started on discharge was Flomax metoprolol melatonin and insulin NovoLog scale along with maintenance medications, otherwise patient is at baseline medication. He has severe pulmonary hypertension, known paroxysmal atrial fibrillation, now long- term anticoagulation, chronic diastolic CHF, restless leg, diabetes mellitus type 2, CK D stage II with recent acute kidney injury from over diuresing at [facility] 01/17/2018. He had transient use of hemodialysis followed by Dr. Leslie prater currently not on any hemodialysis program. No mention of urinary retention, patient was not placed on a Mcgill catheter prior to his last discharge from our facility. He presents to the emergency room secondary to fever of 102, yellowish brown productive cough, shortness of breath increasing cough, and worsening dyspnea. He chronically has some leg swelling bilaterally, no calf pain, no calf tenderness, no chest pain, he is He was subsequently transferred to ICU secondary to hypotension . His WBC count ER was 12.2, creatinine of 1.7 BUN of 57, CO2 of 40, chest x-ray shows chronic infiltrate and atelectasis, no definite CHF, he is proBNP is 1620, urinalysis is normal troponin is 0.014. Past Medical History Past Medical History: Atrial Fibrillation, Atrial Flutter, Coronary Artery Disease (CAD), Cancer, Chest Pain / Angina, Heart Failure, COPD, Diabetes Mellitus, GERD/Reflux, GI Bleed, Hearing Disorder / Deafness, Hyperlipidemia, Hypertension, Myocardial Infarction (AL), Renal Disease, Sleep Apnea/CPAP/BIPAP , Vascular Disorder Additional Past Medical History / Comment(s): Pt was recently at [facility] 02/09-02/11 with transfer to [facility] in [place]. Pt to [facility] December with transfer to [facility], was discharged from [facility] on Sunday, January 11, 2018 where he was treated for Afib RVR/ CHF and exacerbation of his COPD. 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 kidney failure Last Myocardial Infarction Date:: 1997 History of Any Multi-Drug Resistant Organisms: None Reported Past Surgical History: Back Surgery, Bowel Resection, Cardiac Ablation, Coronary Bypass/CABG, Heart Catheterization, Heart Catheterization With Stent, Joint Replacement, Orthopedic Surgery Additional Past Surgical History / Comment(s): FAVIAN, cardiac ablation, several cardiac caths, PCI with stents-total of 2007 CABG 3 vessel, 14 inches small bowel removed for cancerous tumor, partial L knee replacement, R leg vascular surgery, EGD/colonoscopy, endocapsule, L toe middle toe amp, low back fusion, bilateral cataract removals. Past Anesthesia/Blood Transfusion Reactions: No Reported Reaction Date of Last Stent Placement:: 1997 Past Psychological History: No Psychological Hx Reported Additional Psychological History / Comment(s): Pt resides with his spouse of 16 years. He has difficulty sleeping-gets maybe 3 hours per night. 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 Pt lives in single level home w/4 porch steps. No home care services. Has home 02 2 liters n/c which he now wears ATC. He has a glucometer. Smoking Status: Former smoker Past Alcohol Use History: Rare Additional Past Alcohol Use History / Comment(s): Pt started smoking in 1962 and quit in 2004. He is a recovering alcoholic and quit drinking in 1981 Past Drug Use History: None Reported Additional Drug Use History / Comment(s): remote history of trial of recreational drugs in 1970, none since - Past Family History Father Family Medical History: Chest Pain / Angina, Coronary Artery Disease (CAD), Myocardial Infarction (AL) Additional Family Medical History / Comment(s): Father of a AL at the age of 54yrs. Brother(s) Family Medical History: Chest Pain / Angina, Coronary Artery Disease (CAD), Myocardial Infarction (AL) Additional Family Medical History / Comment(s): Brother had a AL at the age of 58 yrs. He is living. Son(s) Family Medical History: Musculoskeletal Disorder Mother Family Medical History: Vascular Disorder Additional Family Medical History / Comment(s): of brain aneurysm at age 34 Medications and Allergies Home Medications Medication Instructions Recorded Confirmed Type Albuterol Inhaler [Ventolin Hfa 2 puff INHALATION RT-QID PRN 11/11/15 02/28/18 History Inhaler] metFORMIN HCL 1,000 mg PO BID@0800,1700 06/08/17 02/28/18 History Ferrous Sulfate [Feosol] 325 mg PO SA 11/12/17 02/28/18 History rOPINIRole HCL [Requip] 1 mg PO HS 11/12/17 02/28/18 History Albuterol Nebulized [Ventolin 2.5 mg INHALATION RT-Q4H PRN 01/14/18 02/28/18 History Nebulized] Budesonide [Pulmicort] 1 mg INHALATION RT-BID 01/14/18 02/28/18 History Ergocalciferol (Vitamin D2) 50,000 unit PO SA 01/14/18 02/28/18 History [Vitamin D2] Methocarbamol [Robaxin-750] 750 mg PO TID PRN 01/14/18 02/28/18 History Simvastatin 40 mg PO HS@209901/14/18 02/28/18 History Spironolactone [Aldactone] 25 mg PO BID@0800,1700 01/14/18 02/28/18 History rOPINIRole HCL [Requip] 0.5 mg PO HS@209901/14/18 02/28/18 History Melatonin 3 mg PO HS PRN tablet 02/14/18 02/28/18 Rx Tamsulosin [Flomax] 0.4 mg PO PC-[id number] cap.er.24h 02/14/18 02/28/18 Rx Acetaminophen [Tylenol Arthritis] 650 mg PO Q4H PRN 02/28/18 02/28/18 History Bisacodyl [Dulcolax] 10 mg RECTAL DAILY PRN 02/28/18 02/28/18 History Bumetanide [BUMEX] 2 mg PO BID@0800,1700 02/28/18 02/28/18 History Docusate [Colace] 100 mg PO BID@0800,1700 02/28/18 02/28/18 History Furosemide Solu 40mg/4ml 80 mg PO ONCE 02/28/18 02/28/18 History Insulin Aspart [NovoLOG See Protocol SQ ACHS 02/28/18 02/28/18 History (formulary)] Insulin Detemir [Levemir] 10 unit SQ HS@2100 02/28/18 02/28/18 History Ipratropium-Albuterol Nebulize 3 ml INHALATION RT-Q6H PRN 02/28/18 02/28/18 History [Duoneb 0.5 mg-3 mg/3 ml Soln] Losartan [Cozaar] 50 mg PO DAILY@0802/28/18 02/28/18 History Magnesium Hydroxide [Milk of 2,400 mg PO DAILY PRN 02/28/18 02/28/18 History Magnesia] Metolazone [Zaroxolyn] 2.5 mg PO MOWEFR@0602/28/18 02/28/18 History Metoprolol Succinate (ER) [Toprol 75 mg PO DAILY@0802/28/18 02/28/18 History XL] Na Phos,M-B/Na Phos,Di-Ba [Fleet 133 ml RECTAL DAILY PRN 02/28/18 02/28/18 History Adult] Nystatin 100,000Unit/gm Cream 1 applic TOPICAL BID@0800,2100 02/28/18 02/28/18 History [Mycostatin Cream] Pantoprazole [Protonix] 40 mg PO DAILY@0602/28/18 02/28/18 History Pregabalin [Lyrica] 150 mg PO BID@0800,2100 02/28/18 02/28/18 History Rivaroxaban [Xarelto] 20 mg PO HS@1700 02/28/18 02/28/18 History Triamcinolone 0.5% Cream [Kenalog 1 applic TOPICAL BID 02/28/18 02/28/18 History 0.5% Cream] guaiFENesin [Mucinex] 600 mg PO BID 02/28/18 02/28/18 History Allergies Allergy/AdvReac Type Severity Reaction Status Date / Time No Known Allergies Allergy Verified 02/28/18 09:06 Physical Exam Vitals: Vital Signs Temp Pulse Resp BP Pulse Ox 02/28/18 12:30 98.1 F 139 H 20 111/58 92 L 02/28/18 12:00 123 H 18 113/68 91 L 02/28/18 11:36 121 H 02/28/18 11:30 113 H 29 H 115/66 98 02/28/18 11:24 120 H 02/28/18 11:00 106 H 24 112/77 92 L 02/28/18 10:30 125 H 16 120/87 92 L 02/28/18 10:00 121 H 26 H 93/64 92 L 02/28/18 09:30 130 H 25 H 107/56 93 L 02/28/18 09:00 96 27 H 113/59 95 02/28/18 08:30 97 26 H 112/73 95 02/28/18 08:10 99 02/28/18 08:00 98.3 F 112 H 23 111/57 97 02/28/18 07:56 100 02/28/18 07:30 83 20 110/61 94 L 02/28/18 07:00 76 24 110/58 93 L 02/28/18 06:45 82 22 105/52 94 L 02/28/18 06:30 89 23 100/50 93 L 02/28/18 06:15 85 26 H 94/52 92 L 02/28/18 06:00 84 24 83/52 93 L 02/28/18 05:45 69 22 91/51 93 L 02/28/18 05:30 85 21 104/55 86 L 02/28/18 05:15 97.3 F L 101 H 23 92/55 92 L 02/28/18 05:00 86 23 91/46 91 L 02/28/18 04:45 100 24 79/47 89 L 02/28/18 04:30 87 20 97/48 89 L 02/28/18 04:15 93 19 97/51 89 L 02/28/18 04:00 93 28 H 83/63 90 L 02/28/18 03:45 104 H 34 H 95/59 92 L 02/28/18 03:30 114 H 27 H 106/57 93 L 02/28/18 03:15 90 22 86/59 93 L 02/28/18 03:00 101 H 24 106/62 91 L 02/28/18 02:45 93 29 H 104/59 89 L 02/28/18 02:30 85 23 113/61 90 L 02/28/18 02:15 110 H 29 H 99/62 92 L 02/28/18 02:00 95 37 H 82/57 91 L 02/28/18 01:45 98.2 F 100 30 H 76/45 91 L 02/28/18 01:31 103 H 24 89 L 02/28/18 01:03 97.9 F 103 H 22 96/55 93 L 02/28/18 00:18 117 H 21 86/53 97 02/28/18 00:08 106 H 02/27/18 23:55 22 02/27/18 23:50 111 H 20 79/46 92 L 02/27/18 23:11 105 H 20 86/50 93 L 02/27/18 22:50 102 H 02/27/18 22:40 101 H 02/27/18 22:19 98.4 F 110 H 20 92/58 92 L Intake and Output 02/27/18 02/28/18 02/28/18 22:59 06:59 14:59 Intake Total 1371.050 500.917 Output Total 819 1775 Balance 552.050 -1274.083 Intake: IV 1360.0 190 0.9 Fluid bolus 1250 Piperacillin-Tazobactam 3 50.0 50 .375 gm In Dextrose/Water 1 50ml.bag @ 12.5 mls/hr IVPB ONCE [facility] Rx#: [id number] Sodium Chloride 0.9% 1, 60 140 000 ml @ 20 mls/hr IV . Q24H [facility] Rx#:[id number] Intake, IV Titration 11.050 310.917 Amount Insulin Regular 100 unit 64.506 In Sodium Chloride 0.9% 100 ml @ Per Protocol IV .Q0M [facility] Rx#:[id number] Magnesium Sulfate-D5w Pmx 200 1 gm In Dextrose/Water 1 100ml.bag @ 100 mls/hr IVPB Q1H [facility] Rx#: [id number] Norepinephrine 16 mg In 11.050 46.411 Sodium Chloride 0.9% 250 ml @ Titrate IV .Q0M [facility] Rx#:[id number] Output: Urine 819 1775 Other: Voiding Method Indwelling Catheter Weight 136.985 kg 138.2 kg 138.2 kg - Constitutional General appearance: cooperative, mild distress, morbidly obese, no acute distress - EENT Eyes: anicteric sclerae, EOMI, PERRLA, dentition normal, normal appearance ENT: normal oropharynx - Neck Neck: normal ROM - Respiratory Respiratory: bilateral: CTA, negative: diminished, dullness, rales - Cardiovascular Rhythm: regular Heart sounds: normal: S1, S2 Abnormal Heart Sounds: no systolic murmur, no diastolic murmur, no rub, no S3 Gallop, no S4 Gallop, no click, no other - Gastrointestinal General gastrointestinal: normal bowel sounds, soft - Integumentary Integumentary: decreased turgor, normal - Neurologic Neurologic: CNII-XII intact - Musculoskeletal Musculoskeletal: strength equal bilaterally - Psychiatric Psychiatric: A&O x's 3, intact judgment & insight Results CBC & Chem 7: 03/01/18 04:30 03/01/18 04:30 Labs: Abnormal Lab Results - Last 24 Hours (Table) 02/27/18 02/27/18 02/27/18 Range/Units 22:16 22:16 22:16 WBC 12.2 H (3.8-10.6) k/uL RBC 3.26 L (4.30-5.90) m/uL Hgb 9.6 L (13.0-17.5) gm/dL Hct 29.8 L (39.0-53.0) % MCHC (31.0-37.0) g/dL RDW 17.7 H (11.5-15.5) % Neutrophils # 9.7 H (1.3-7.7) k/uL PT (9.0-12.0) sec INR (<1.2) APTT (22.0-30.0) sec ABG pH (7.35-7.45) ABG pCO2 (35-45) mmHg ABG pO2 (83-108) mmHg ABG HCO3 (21-25) mmol/L ABG Total CO2 (19-24) mmol/L ABG O2 Saturation (94-97) % Sodium 134 L (137-145) mmol/L Chloride 83 L (98-107) mmol/L Carbon Dioxide 40 H* (22-30) mmol/L BUN 57 H (9-20) mg/dL Creatinine 1.77 H (0.66-1.25) mg/dL Glucose 171 H (74-99) mg/dL POC Glucose (mg/dL) (75-99) mg/dL Calcium 8.3 L (8.4-10.2) mg/dL Phosphorus (2.5-4.5) mg/dL Total Creatine Kinase 23 L (55-170) U/L Total Protein 5.9 L (6.3-8.2) g/dL Albumin 3.4 L (3.5-5.0) g/dL 02/27/18 02/28/18 02/28/18 Range/Units 22:16 01:31 04:45 WBC (3.8-10.6) k/uL RBC 3.21 L (4.30-5.90) m/uL Hgb 9.3 L (13.0-17.5) gm/dL Hct 30.1 L (39.0-53.0) % MCHC 30.8 L (31.0-37.0) g/dL RDW 17.7 H (11.5-15.5) % Neutrophils # 7.8 H (1.3-7.7) k/uL PT 12.9 H (9.0-12.0) sec INR 1.4 H (<1.2) APTT 34.4 H (22.0-30.0) sec ABG pH (7.35-7.45) ABG pCO2 (35-45) mmHg ABG pO2 (83-108) mmHg ABG HCO3 (21-25) mmol/L ABG Total CO2 (19-24) mmol/L ABG O2 Saturation (94-97) % Sodium (137-145) mmol/L Chloride (98-107) mmol/L Carbon Dioxide (22-30) mmol/L BUN (9-20) mg/dL Creatinine (0.66-1.25) mg/dL Glucose (74-99) mg/dL POC Glucose (mg/dL) 177 H (75-99) mg/dL Calcium (8.4-10.2) mg/dL Phosphorus (2.5-4.5) mg/dL Total Creatine Kinase (55-170) U/L Total Protein (6.3-8.2) g/dL Albumin (3.5-5.0) g/dL 02/28/18 02/28/18 02/28/18 Range/Units 04:45 04:46 05:01 WBC (3.8-10.6) k/uL RBC (4.30-5.90) m/uL Hgb (13.0-17.5) gm/dL Hct (39.0-53.0) % MCHC (31.0-37.0) g/dL RDW (11.5-15.5) % Neutrophils # (1.3-7.7) k/uL PT (9.0-12.0) sec INR (<1.2) APTT (22.0-30.0) sec ABG pH 7.33 L (7.35-7.45) ABG pCO2 82 H* (35-45) mmHg ABG pO2 64 L (83-108) mmHg ABG HCO3 43 H* (21-25) mmol/L ABG Total CO2 45 H (19-24) mmol/L ABG O2 Saturation 89.9 L (94-97) % Sodium (137-145) mmol/L Chloride 86 L (98-107) mmol/L Carbon Dioxide 39 H (22-30) mmol/L BUN 55 H (9-20) mg/dL Creatinine 1.76 H (0.66-1.25) mg/dL Glucose 170 H (74-99) mg/dL POC Glucose (mg/dL) 196 H (75-99) mg/dL Calcium 8.0 L (8.4-10.2) mg/dL Phosphorus 5.9 H (2.5-4.5) mg/dL Total Creatine Kinase (55-170) U/L Total Protein (6.3-8.2) g/dL Albumin (3.5-5.0) g/dL 02/28/18 02/28/18 02/28/18 Range/Units 06:12 07:13 08:36 WBC (3.8-10.6) k/uL RBC (4.30-5.90) m/uL Hgb (13.0-17.5) gm/dL Hct (39.0-53.0) % MCHC (31.0-37.0) g/dL RDW (11.5-15.5) % Neutrophils # (1.3-7.7) k/uL PT (9.0-12.0) sec INR (<1.2) APTT (22.0-30.0) sec ABG pH (7.35-7.45) ABG pCO2 (35-45) mmHg ABG pO2 (83-108) mmHg ABG HCO3 (21-25) mmol/L ABG Total CO2 (19-24) mmol/L ABG O2 Saturation (94-97) % Sodium (137-145) mmol/L Chloride (98-107) mmol/L Carbon Dioxide (22-30) mmol/L BUN (9-20) mg/dL Creatinine (0.66-1.25) mg/dL Glucose (74-99) mg/dL POC Glucose (mg/dL) 194 H 179 H 199 H (75-99) mg/dL Calcium (8.4-10.2) mg/dL Phosphorus (2.5-4.5) mg/dL Total Creatine Kinase (55-170) U/L Total Protein (6.3-8.2) g/dL Albumin (3.5-5.0) g/dL 02/28/18 02/28/18 02/28/18 Range/Units 09:17 10:05 11:04 WBC (3.8-10.6) k/uL RBC (4.30-5.90) m/uL Hgb (13.0-17.5) gm/dL Hct (39.0-53.0) % MCHC (31.0-37.0) g/dL RDW (11.5-15.5) % Neutrophils # (1.3-7.7) k/uL PT (9.0-12.0) sec INR (<1.2) APTT (22.0-30.0) sec ABG pH (7.35-7.45) ABG pCO2 (35-45) mmHg ABG pO2 (83-108) mmHg ABG HCO3 (21-25) mmol/L ABG Total CO2 (19-24) mmol/L ABG O2 Saturation (94-97) % Sodium (137-145) mmol/L Chloride (98-107) mmol/L Carbon Dioxide (22-30) mmol/L BUN (9-20) mg/dL Creatinine (0.66-1.25) mg/dL Glucose (74-99) mg/dL POC Glucose (mg/dL) 194 H 347 H 292 H (75-99) mg/dL Calcium (8.4-10.2) mg/dL Phosphorus (2.5-4.5) mg/dL Total Creatine Kinase (55-170) U/L Total Protein (6.3-8.2) g/dL Albumin (3.5-5.0) g/dL 02/28/18 Range/Units 12:03 WBC (3.8-10.6) k/uL RBC (4.30-5.90) m/uL Hgb (13.0-17.5) gm/dL Hct (39.0-53.0) % MCHC (31.0-37.0) g/dL RDW (11.5-15.5) % Neutrophils # (1.3-7.7) k/uL PT (9.0-12.0) sec INR (<1.2) APTT (22.0-30.0) sec ABG pH (7.35-7.45) ABG pCO2 (35-45) mmHg ABG pO2 (83-108) mmHg ABG HCO3 (21-25) mmol/L ABG Total CO2 (19-24) mmol/L ABG O2 Saturation (94-97) % Sodium (137-145) mmol/L Chloride (98-107) mmol/L Carbon Dioxide (22-30) mmol/L BUN (9-20) mg/dL Creatinine (0.66-1.25) mg/dL Glucose (74-99) mg/dL POC Glucose (mg/dL) 241 H (75-99) mg/dL Calcium (8.4-10.2) mg/dL Phosphorus (2.5-4.5) mg/dL Total Creatine Kinase (55-170) U/L Total Protein (6.3-8.2) g/dL Albumin (3.5-5.0) g/dL Microbiology - Last 24 Hours (Table) 02/28/18 03:50 Urine Culture - Preliminary Urine,Catheterized Assessment and Plan Plan: 1. Sepsis with SIRS, pulmonary is most likely the source, has increasing productive purulent cough, and fever, she currently is on Zosyn and Levaquin for facility acquired pneumonia, sputum and blood cultures to be obtained, pulmonary is following, Solu-Medrol 60 every 6 IV 2. Hypotension suspect septic shock, patient received vasopressors transiently , cardiology is on consult secondary to tachycardia, continue IV diet antibiotics 3. Acute on chronic hypercapnic and hypoxic respiratory failure. Consult with Dr. De La Rosa. Continue O2 therapy, albuterol nebulizer every 4 hours as needed, Pulmicort 1 mg twice daily. 4. Acute kidney injury Chronic kidney disease stage II secondary to ATN from hypotension and sepsis, during his last admission he had recent acute kidney injury from aggressive diuresing. 5. Paroxysmal Atrial fibrillation with rapid ventricular response. Cardiology consult. Started this time on IV Cardizem drip. Lopressor dosing to be determined by search engine marketing specialist with IV Cardizem on board Xarelto has been resumed. Not on tokosyn on home meds this admission 6. Pulmonary hypertension: Patient has been seen pulmonary and cardiology. Continue Bumex, hold for parameters, continue valsartan continue methimazole in 2.5 Sunday 7 Chronic diastolic heart failure. Continue Bumex 1 mg twice daily, Aldactone 25 mg twice daily, was on Toprol-XL 75 mg daily. Cardiology consult appreciated. 7 Restless leg syndrome: Remain on Requip 1.5 g daily at bedtime. 9. Hyperlipidemia: Has been on simvastatin 40 mg daily at bedtime. 10. Diabetes: Type II has been on insulin and metformin, Continue Levemir 10 units at bedtime and Accu-Chek with sliding scales coverage. 11. Chronic pain syndrome: Has been on Lyrica, Robaxin and scheduled oxycodone. 12. Advance COPD: Patient has been on Bumex, Pulmicort Ventolin. Continue O2 as well. 13. DVT prophylaxis: Patient has been on anticoagulation. 14 GI prophylaxis: Patient will be on pantoprazole 40 mg daily. CODE STATUS: Full code. Patient will be admitted to the hospital for a minimum of 2 night stay. Discharge plan: T Request PT and OT and patient would benefit from subacute rehab returning to [facility]
[2018-02-28 14:06] LABS: Hemoglobin A1C 7.1 % (4.0-6.0)
[2018-02-28 14:15] LABS: Glucose,Whole Blood 275 mg/dL (75-99)
--- NOTE | 2018-02-28 14:27 | P.CNPUL ---
History of Present Illness Consult date: 02/28/18 Requesting physician: Rola Powell Reason for consult: COPD, hypoxemia Chief complaint: Shortness of breath cough and fever History of present illness: This is a 68-year-old white male with recent admission to the hospital for acute on chronic hypoxic and hypercapnic respiratory failure, known to have severe COPD, patient was recently discharged to [facility], and he was undergoing rehab. Patient is known to have severe pulmonary hypertension, paroxysmal atrial fibrillation, diastolic congestive heart failure, type 2 diabetes, chronic kidney disease stage II, and at one point he received transient hemodialysis. At any rate patient was brought into [facility] from the [facility] complaining of increased shortness of breath, low-grade fever, and cough. Chest x-ray showed chronic infiltrate and atelectasis at the bases. Patient was also noted to be hypotensive while in the ER, attempts were made to place a right subclavian central line, however no success. Patient was eventually admitted, fluids were given, and possibility of sepsis was considered. Responded to 4 g of norepinephrine, and patient was diuresed overnight. Follow-up chest x-ray this morning showed atelectasis at the lung bases, and chronic infiltrates. Especially at the left lung base. Patient was switched to BiPAP, and he felt great with BiPAP. Presently on BiPAP with IPAP of 12 and EPAP of 6 FiO2 is down to 30%. ABG earlier today showed a pO2 of 64 pCO2 of 82 pH of 7.33. Renal profile showed a BUN of 55 and creatinine of 1.76. CBC was relatively normal, hemoglobin is 9.6. BNP level on admission was 1620, apparently patient developed more evidence of congestive heart failure upon initial presentation to the ICU as he was given more fluids to deal with his low blood pressure. Shortly after he arrived to the ICU, I cut down his IV fluid to KVO, and recommended Lasix, and switch the patient to BiPAP. For his low blood pressure recommended norepinephrine. Patient seems to be doing much better early this morning. And responding well to treatment. unhappy with his BiPAP, but seems to be quite comfortable on BiPAP. Review of Systems ROS Other: All systems not noted in ROS Statement are negative. Constitutional: Reports: fever Eyes: Denies: eye pain ENT: Denies: ear pain Respiratory: Complains of cough fever and shortness of breath. Cardiovascular: Denied chest pain and palpitation. Endocrine: Reports: fatigue Gastrointestinal: Denies nausea vomiting abdominal pain melena or hematemesis. Genitourinary: Denies hematuria and dysuria frequency urgency. Musculoskeletal: Denies: back pain Skin: Denies: rash Neurological: Complains of generalized weakness Past Medical History Past Medical History: Atrial Fibrillation, Atrial Flutter, Coronary Artery Disease (CAD), Cancer, Chest Pain / Angina, Heart Failure, COPD, Diabetes Mellitus, GERD/Reflux, GI Bleed, Hearing Disorder / Deafness, Hyperlipidemia, Hypertension, Myocardial Infarction (NV), Renal Disease, Sleep Apnea/CPAP/BIPAP , Vascular Disorder Additional Past Medical History / Comment(s): Pt was recently at [facility] 02/09-02/11 with transfer to [facility] in [place]. Pt to [facility] December with transfer to [facility], was discharged from [facility] on Sunday, January 11, 2018 where he was treated for Afib RVR/ CHF and exacerbation of his COPD. 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 kidney failure Last Myocardial Infarction Date:: 1997 History of Any Multi-Drug Resistant Organisms: None Reported Past Surgical History: Back Surgery, Bowel Resection, Cardiac Ablation, Coronary Bypass/CABG, Heart Catheterization, Heart Catheterization With Stent, Joint Replacement, Orthopedic Surgery Additional Past Surgical History / Comment(s): FAVIAN, cardiac ablation, several cardiac caths, PCI with stents-total of 2007 CABG 3 vessel, 14 inches small bowel removed for cancerous tumor, partial L knee replacement, R leg vascular surgery, EGD/colonoscopy, endocapsule, L toe middle toe amp, low back fusion, bilateral cataract removals. Past Anesthesia/Blood Transfusion Reactions: No Reported Reaction Date of Last Stent Placement:: 1997 Past Psychological History: No Psychological Hx Reported Additional Psychological History / Comment(s): Pt resides with his spouse of 16 years. He has difficulty sleeping-gets maybe 3 hours per night. 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 Pt lives in single level home w/4 porch steps. No home care services. Has home 02 2 liters n/c which he now wears ATC. He has a glucometer. Smoking Status: Former smoker Past Alcohol Use History: Rare Additional Past Alcohol Use History / Comment(s): Pt started smoking in 1962 and quit in 2004. He is a recovering alcoholic and quit drinking in 1981 Past Drug Use History: None Reported Additional Drug Use History / Comment(s): remote history of trial of recreational drugs in 1970, none since - Past Family History Father Family Medical History: Chest Pain / Angina, Coronary Artery Disease (CAD), Myocardial Infarction (NV) Additional Family Medical History / Comment(s): Father of a NV at the age of 54yrs. Brother(s) Family Medical History: Chest Pain / Angina, Coronary Artery Disease (CAD), Myocardial Infarction (NV) Additional Family Medical History / Comment(s): Brother had a NV at the age of 58 yrs. He is living. Son(s) Family Medical History: Musculoskeletal Disorder Mother Family Medical History: Vascular Disorder Additional Family Medical History / Comment(s): of brain aneurysm at age 34 Medications and Allergies Home Medications Medication Instructions Recorded Confirmed Type Albuterol Inhaler [Ventolin Hfa 2 puff INHALATION RT-QID PRN 11/11/15 02/28/18 History Inhaler] metFORMIN HCL 1,000 mg PO BID@0800,1700 06/08/17 02/28/18 History Ferrous Sulfate [Feosol] 325 mg PO SA 11/12/17 02/28/18 History rOPINIRole HCL [Requip] 1 mg PO 11/12/17 02/28/18 History Albuterol Nebulized [Ventolin 2.5 mg INHALATION RT-Q4H PRN 01/14/18 02/28/18 History Nebulized] Budesonide [Pulmicort] 1 mg INHALATION RT-BID 01/14/18 02/28/18 History Ergocalciferol (Vitamin D2) 50,000 unit PO SA 01/14/18 02/28/18 History [Vitamin D2] Methocarbamol [Robaxin-750] 750 mg PO TID PRN 01/14/18 02/28/18 History Simvastatin 40 mg PO HS@2100 01/14/18 02/28/18 History Spironolactone [Aldactone] 25 mg PO BID@0800,1700 01/14/18 02/28/18 History rOPINIRole HCL [Requip] 0.5 mg PO HS@209901/14/18 02/28/18 History Melatonin 3 mg PO HS PRN tablet 02/14/18 02/28/18 Rx Tamsulosin [Flomax] 0.4 mg PO PC-[id number] cap.er.24h 02/14/18 02/28/18 Rx Acetaminophen [Tylenol Arthritis] 650 mg PO Q4H PRN 02/28/18 02/28/18 History Bisacodyl [Dulcolax] 10 mg RECTAL DAILY PRN 02/28/18 02/28/18 History Bumetanide [BUMEX] 2 mg PO BID@0800,169902/28/18 02/28/18 History Docusate [Colace] 100 mg PO BID@0800,169902/28/18 02/28/18 History Furosemide Solu 40mg/4ml 80 mg PO ONCE 02/28/18 02/28/18 History Insulin Aspart [NovoLOG See Protocol SQ ACHS 02/28/18 02/28/18 History (formulary)] Insulin Detemir [Levemir] 10 unit SQ HS@209902/28/18 02/28/18 History Ipratropium-Albuterol Nebulize 3 ml INHALATION RT-Q6H PRN 02/28/18 02/28/18 History [Duoneb 0.5 mg-3 mg/3 ml Soln] Losartan [Cozaar] 50 mg PO DAILY@79902/28/18 02/28/18 History Magnesium Hydroxide [Milk of 2,400 mg PO DAILY PRN 02/28/18 02/28/18 History Magnesia] Metolazone [Zaroxolyn] 2.5 mg PO MOWEFR@59902/28/18 02/28/18 History Metoprolol Succinate (ER) [Toprol 75 mg PO DAILY@79902/28/18 02/28/18 History XL] Na Phos,M-B/Na Phos,Di-Ba [Fleet 133 ml RECTAL DAILY PRN 02/28/18 02/28/18 History Adult] Nystatin 100,000Unit/gm Cream 1 applic TOPICAL BID@0800,2100 02/28/18 02/28/18 History [Mycostatin Cream] Pantoprazole [Protonix] 40 mg PO DAILY@0600 02/28/18 02/28/18 History Pregabalin [Lyrica] 150 mg PO BID@0800,2100 02/28/18 02/28/18 History Rivaroxaban [Xarelto] 20 mg PO HS@1700 02/28/18 02/28/18 History Triamcinolone 0.5% Cream [Kenalog 1 applic TOPICAL BID 02/28/18 02/28/18 History 0.5% Cream] guaiFENesin [Mucinex] 600 mg PO BID 02/28/18 02/28/18 History Allergies Allergy/AdvReac Type Severity Reaction Status Date / Time No Known Allergies Allergy Verified 02/28/18 09:06 Physical Exam Vitals: Vital Signs Temp Pulse Resp BP Pulse Ox 02/28/18 14:00 103 H 26 H 106/51 92 L 02/28/18 13:00 123 H 25 H 120/59 95 02/28/18 12:30 98.1 F 139 H 20 111/58 92 L 02/28/18 12:00 123 H 18 113/68 91 L 02/28/18 11:36 121 H 02/28/18 11:30 113 H 29 H 115/66 98 02/28/18 11:24 120 H 02/28/18 11:00 106 H 24 112/77 92 L 02/28/18 10:30 125 H 16 120/87 92 L 02/28/18 10:00 121 H 26 H 93/64 92 L 02/28/18 09:30 130 H 25 H 107/56 93 L 02/28/18 09:00 96 27 H 113/59 95 02/28/18 08:30 97 26 H 112/73 95 02/28/18 08:10 99 02/28/18 08:00 98.3 F 112 H 23 111/57 97 02/28/18 07:56 100 02/28/18 07:30 83 20 110/61 94 L 02/28/18 07:00 76 24 110/58 93 L 02/28/18 06:45 82 22 105/52 94 L 02/28/18 06:30 89 23 100/50 93 L 08/30/18 06:15 85 26 H 94/52 92 L 02/28/18 06:00 84 24 83/52 93 L 02/28/18 05:45 69 22 91/51 93 L 02/28/18 05:30 85 21 104/55 86 L 02/28/18 05:15 97.3 F L 101 H 23 92/55 92 L 02/28/18 05:00 86 23 91/46 91 L 02/28/18 04:45 100 24 79/47 89 L 02/28/18 04:30 87 20 97/48 89 L 02/28/18 04:15 93 19 97/51 89 L 02/28/18 04:00 93 28 H 83/63 90 L 02/28/18 03:45 104 H 34 H 95/59 92 L 02/28/18 03:30 114 H 27 H 106/57 93 L 02/28/18 03:15 90 22 86/59 93 L 02/28/18 03:00 101 H 24 106/62 91 L 02/28/18 02:45 93 29 H 104/59 89 L 02/28/18 02:30 85 23 113/61 90 L 02/28/18 02:15 110 H 29 H 99/62 92 L 02/28/18 02:00 95 37 H 82/57 91 L 02/28/18 01:45 98.2 F 100 30 H 76/45 91 L 02/28/18 01:31 103 H 24 89 L 02/28/18 01:03 97.9 F 103 H 22 96/55 93 L 02/28/18 00:18 117 H 21 86/53 97 02/28/18 00:08 106 H 02/27/18 23:55 22 02/27/18 23:50 111 H 20 79/46 92 L 02/27/18 23:11 105 H 20 86/50 93 L 02/27/18 22:50 102 H 02/27/18 22:40 101 H 02/27/18 22:19 98.4 F 110 H 20 92/58 92 L Intake and Output 02/27/18 02/28/18 02/28/18 22:59 06:59 14:59 Intake Total 1371.050 545.528 Output Total 819 1950 Balance 552.050 -1404.472 Intake: IV 1360.0 210 0.9 Fluid bolus 1250 Piperacillin-Tazobactam 3 50.0 50 .375 gm In Dextrose/Water 1 50ml.bag @ 12.5 mls/hr IVPB ONCE STA Rx#: [id number] Sodium Chloride 0.9% 1, 60 160 000 ml @ 20 mls/hr IV . Q24H RODRIGUEZ Rx#:[id number] Intake, IV Titration 11.050 335.528 Amount Diltiazem 50 mg In Sodium 10 Chloride 0.9% 40 ml @ 10 MG/HR 10 mls/hr IV .Q5H RODRIGUEZ Rx#:[id number] Insulin Regular 100 unit 79.117 In Sodium Chloride 0.9% 100 ml @ Per Protocol IV .Q0M RODRIGUEZ Rx#:[id number] Magnesium Sulfate-D5w Pmx 200 1 gm In Dextrose/Water 1 100ml.bag @ 100 mls/hr IVPB Q1H RODRIGUEZ Rx#: [id number] Norepinephrine 16 mg In 11.050 46.411 Sodium Chloride 0.9% 250 ml @ Titrate IV .Q0M [facility] Rx#:[id number] Output: Urine 819 1950 Other: Voiding Method Indwelling Catheter Weight 136.985 kg 138.2 kg 138.2 kg Physical Exam: Revealed a 68-year-old white male, obese, on BiPAP, in no distress. Head: Atraumatic, normocephalic. HEENT:[ Short obese neck. Neck is supple.] [No neck masses.] [No thyromegaly.] [No JVD.] Mallampati class IV. Chest: [Crackles at the bases, some wheezing on forced expiratory maneuver noted..] Cardiac Exam: [Normal S1 and S2, no S3 gallop, no murmur.] Abdomen: [Soft, nontender, no megaly, no rebound, no guarding, normal bowel sounds.] Extremities: [No clubbing, 1+ bipedal edema, no cyanosis.] Neurological Exam: [No focal neurologic deficit.] Psychiatric: Normal mood affect and mental status examination. Results - Laboratory Findings CBC and BMP: 02/28/18 04:45 02/28/18 04:45 ABG ABG pH 7.33 (7.35-7.45) L 02/28/18 04:46 ABG pCO2 82 mmHg (35-45) H* 02/28/18 04:46 ABG pO2 64 mmHg (83-108) L 02/28/18 04:46 ABG O2 Saturation 89.9 % (94-97) L 02/28/18 04:46 PT/INR, D-dimer PT 12.9 sec (9.0-12.0) H 02/27/18 22:16 INR 1.4 (<1.2) H 02/27/18 22:16 Abnormal lab findings: Abnormal Labs 02/27/18 02/27/18 02/27/18 22:16 22:16 22:16 WBC 12.2 H RBC 3.26 L Hgb 9.6 L Hct 29.8 L MCHC RDW 17.7 H Neutrophils # 9.7 H PT INR APTT ABG pH ABG pCO2 ABG pO2 ABG HCO3 ABG Total CO2 ABG O2 Saturation Sodium 134 L Chloride 83 L Carbon Dioxide 40 H* BUN 57 H Creatinine 1.77 H Glucose 171 H POC Glucose (mg/dL) Calcium 8.3 L Phosphorus Total Creatine Kinase 23 L Total Protein 5.9 L Albumin 3.4 L 02/27/18 02/28/18 02/28/18 22:16 01:31 04:45 WBC RBC 3.21 L Hgb 9.3 L Hct 30.1 L MCHC 30.8 L RDW 17.7 H Neutrophils # 7.8 H PT 12.9 H INR 1.4 H APTT 34.4 H ABG pH ABG pCO2 ABG pO2 ABG HCO3 ABG Total CO2 ABG O2 Saturation Sodium Chloride Carbon Dioxide BUN Creatinine Glucose POC Glucose (mg/dL) 177 H Calcium Phosphorus Total Creatine Kinase Total Protein Albumin 02/28/18 02/28/18 02/28/18 04:45 04:46 05:01 WBC RBC Hgb Hct MCHC RDW Neutrophils # PT INR APTT ABG pH 7.33 L ABG pCO2 82 H* ABG pO2 64 L ABG HCO3 43 H* ABG Total CO2 45 H ABG O2 Saturation 89.9 L Sodium Chloride 86 L Carbon Dioxide 39 H BUN 55 H Creatinine 1.76 H Glucose 170 H POC Glucose (mg/dL) 196 H Calcium 8.0 L Phosphorus 5.9 H Total Creatine Kinase Total Protein Albumin 02/28/18 02/28/18 02/28/18 06:12 07:13 08:36 WBC RBC Hgb Hct MCHC RDW Neutrophils # PT INR APTT ABG pH ABG pCO2 ABG pO2 ABG HCO3 ABG Total CO2 ABG O2 Saturation Sodium Chloride Carbon Dioxide BUN Creatinine Glucose POC Glucose (mg/dL) 194 H 179 H 199 H Calcium Phosphorus Total Creatine Kinase Total Protein Albumin 02/28/18 02/28/18 02/28/18 09:17 10:05 11:04 WBC RBC Hgb Hct MCHC RDW Neutrophils # PT INR APTT ABG pH ABG pCO2 ABG pO2 ABG HCO3 ABG Total CO2 ABG O2 Saturation Sodium Chloride Carbon Dioxide BUN Creatinine Glucose POC Glucose (mg/dL) 194 H 347 H 292 H Calcium Phosphorus Total Creatine Kinase Total Protein Albumin 02/28/18 02/28/18 12:03 13:10 WBC RBC Hgb Hct MCHC RDW Neutrophils # PT INR APTT ABG pH ABG pCO2 ABG pO2 ABG HCO3 ABG Total CO2 ABG O2 Saturation Sodium Chloride Carbon Dioxide BUN Creatinine Glucose POC Glucose (mg/dL) 241 H 276 H Calcium Phosphorus Total Creatine Kinase Total Protein Albumin - Diagnostic Findings Chest x-ray: image reviewed (Chronic bibasilar airspace disease, atelectasis, and chronic infiltrates.) Assessment and Plan Assessment: Impression: 1 acute on chronic hypoxic respiratory failure and hypercapnic respiratory failure secondary to COPD, congestive heart failure, and possible component of hospital-acquired pneumonia. 2 hypotension, multifactorial secondary to sepsis, and cardiogenic in nature since the patient is known to have severe LV dysfunction, and previous episodes of cardiogenic shock. Septic shock is felt to be less likely. 3 acute on chronic kidney injury, known to have history of chronic kidney disease stage II. 4 paroxysmal atrial fibrillation, presently on Cardizem. Being followed by cardiology. 5 severe pulmonary hypertension mostly cardiac in nature. 6 chronic diastolic congestive heart failure 7 severe COPD 8 multiple comorbidities including restless leg syndrome, type 2 diabetes, chronic pain syndrome, multiple admissions and readmissions to the hospital including [facility] and [facility]. Recommendation: Continue BiPAP for now, continue bronchodilators, diuretics, A. fib controlled with Cardizem, empiric antibiotics, IV Solu-Medrol, insulin, GI and DVT prophylaxis, titrate the norepinephrine to a mean of 65 continue Zosyn and Levaquin will continue to monitor in the ICU today, and likely transfer to a monitor bed on selective tomorrow hopefully will discontinue norepinephrine today. Time with Patient: Greater than 30
[2018-02-28 15:04] LABS: Glucose,Whole Blood 236 mg/dL (75-99)
--- NOTE | 2018-02-28 15:13 | P.CRDCN ---
History of Present Illness Consult date: 02/28/18 History of present illness: This is a 68-year-old gentleman with history of ischemic heart disease and previous bypass surgery, history of diastolic congestive heart failure who was recently discharged to [facility] after patient was treated for hypercarbic , hypoxemic respiratory failure secondary to COPD exacerbation. He was brought in this time to the hospital again with complaints of increasing shortness of breath, cough and congestion. Patient was also found to be hypotensive in the emergency room. Patient was started on Norepinephrine and also was given some fluids. Chest x-ray didn't show any significant CHF. There is infiltrative versus atelectasis. This morning patient went into atrial fibrillation with rapid ventricular response. Patient was initiated on IV Cardizem drip and and the rate seemed to be fairly well controlled at this time. He is also feeling better with less cough and congestion. He is currently being treated with antibiotics. Patient is on Xarelto. Previous echocardiogram showed preserved LV function. If necessary, we'll may repeat the echocardiogram. Further recommendations depend upon clinical course. Review of Systems As per the chart Past Medical History Past Medical History: Atrial Fibrillation, Atrial Flutter, Coronary Artery Disease (CAD), Cancer, Chest Pain / Angina, Heart Failure, COPD, Diabetes Mellitus, GERD/Reflux, GI Bleed, Hearing Disorder / Deafness, Hyperlipidemia, Hypertension, Myocardial Infarction (MO), Renal Disease, Sleep Apnea/CPAP/BIPAP , Vascular Disorder Additional Past Medical History / Comment(s): Pt was recently at [facility] 02/09-02/11 with transfer to [facility] in [place]. Pt to [facility] December with transfer to [facility], was discharged from [facility] on Sunday, January 11, 2018 where he was treated for Afib RVR/ CHF and exacerbation of his COPD. 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 kidney failure Last Myocardial Infarction Date:: 1997 History of Any Multi-Drug Resistant Organisms: None Reported Past Surgical History: Back Surgery, Bowel Resection, Cardiac Ablation, Coronary Bypass/CABG, Heart Catheterization, Heart Catheterization With Stent, Joint Replacement, Orthopedic Surgery Additional Past Surgical History / Comment(s): FAVIAN, cardiac ablation, several cardiac caths, PCI with stents-total of 2007 CABG 3 vessel, 14 inches small bowel removed for cancerous tumor, partial L knee replacement, R leg vascular surgery, EGD/colonoscopy, endocapsule, L toe middle toe amp, low back fusion, bilateral cataract removals. Past Anesthesia/Blood Transfusion Reactions: No Reported Reaction Date of Last Stent Placement:: 1997 Past Psychological History: No Psychological Hx Reported Additional Psychological History / Comment(s): Pt resides with his spouse of 16 years. He has difficulty sleeping-gets maybe 3 hours per night. 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 Pt lives in single level home w/4 porch steps. No home care services. Has home 02 2 liters n/c which he now wears ATC. He has a glucometer. Smoking Status: Former smoker Past Alcohol Use History: Rare Additional Past Alcohol Use History / Comment(s): Pt started smoking in 1962 and quit in 2004. He is a recovering alcoholic and quit drinking in 1981 Past Drug Use History: None Reported Additional Drug Use History / Comment(s): remote history of trial of recreational drugs in 1969, none since - Past Family History Father Family Medical History: Chest Pain / Angina, Coronary Artery Disease (CAD), Myocardial Infarction (MO) Additional Family Medical History / Comment(s): Father of a MO at the age of 54yrs. Brother(s) Family Medical History: Chest Pain / Angina, Coronary Artery Disease (CAD), Myocardial Infarction (MO) Additional Family Medical History / Comment(s): Brother had a MO at the age of 58 yrs. He is living. Son(s) Family Medical History: Musculoskeletal Disorder Mother Family Medical History: Vascular Disorder Additional Family Medical History / Comment(s): of brain aneurysm at age 34 Medications and Allergies Home Medications Medication Instructions Recorded Confirmed Type Albuterol Inhaler [Ventolin Hfa 2 puff INHALATION RT-QID PRN 11/11/15 02/28/18 History Inhaler] metFORMIN HCL 1,000 mg PO BID@0800,1700 06/08/17 02/28/18 History Ferrous Sulfate [Feosol] 325 mg PO SA 11/12/17 02/28/18 History rOPINIRole HCL [Requip] 1 mg PO HS 11/12/17 02/28/18 History Albuterol Nebulized [Ventolin 2.5 mg INHALATION RT-Q4H PRN 01/14/18 02/28/18 History Nebulized] Budesonide [Pulmicort] 1 mg INHALATION RT-BID 01/14/18 02/28/18 History Ergocalciferol (Vitamin D2) 50,000 unit PO SA 01/14/18 02/28/18 History [Vitamin D2] Methocarbamol [Robaxin-750] 750 mg PO TID PRN 01/14/18 02/28/18 History Simvastatin 40 mg PO HS@209901/14/18 02/28/18 History Spironolactone [Aldactone] 25 mg PO BID@0800,1700 01/14/18 02/28/18 History rOPINIRole HCL [Requip] 0.5 mg PO HS@209901/14/18 02/28/18 History Melatonin 3 mg PO HS PRN tablet 02/14/18 02/28/18 Rx Tamsulosin [Flomax] 0.4 mg PO PC-BRKFST cap.er.24h 02/14/18 02/28/18 Rx Acetaminophen [Tylenol Arthritis] 650 mg PO Q4H PRN 02/28/18 02/28/18 History Bisacodyl [Dulcolax] 10 mg RECTAL DAILY PRN 02/28/18 02/28/18 History Bumetanide [BUMEX] 2 mg PO BID@0800,1700 02/28/18 02/28/18 History Docusate [Colace] 100 mg PO BID@0800,0 02/28/18 02/28/18 History Furosemide Solu 40mg/4ml 80 mg PO ONCE 02/28/18 02/28/18 History Insulin Aspart [NovoLOG See Protocol SQ ACHS 02/28/18 02/28/18 History (formulary)] Insulin Detemir [Levemir] 10 unit SQ HS@209902/28/18 02/28/18 History Ipratropium-Albuterol Nebulize 3 ml INHALATION RT-Q6H PRN 02/28/18 02/28/18 History [Duoneb 0.5 mg-3 mg/3 ml Soln] Losartan [Cozaar] 50 mg PO DAILY@00 02/28/18 02/28/18 History Magnesium Hydroxide [Milk of 2,400 mg PO DAILY PRN 02/28/18 02/28/18 History Magnesia] Metolazone [Zaroxolyn] 2.5 mg PO MOWEFR@0600 02/28/18 02/28/18 History Metoprolol Succinate (ER) [Toprol 75 mg PO DAILY@0802/28/18 02/28/18 History XL] Na Phos,M-B/Na Phos,Di-Ba [Fleet 133 ml RECTAL DAILY PRN 02/28/18 02/28/18 History Adult] Nystatin 100,000Unit/gm Cream 1 applic TOPICAL BID@0800,209902/28/18 02/28/18 History [Mycostatin Cream] Pantoprazole [Protonix] 40 mg PO DAILY@0600 02/28/18 02/28/18 History Pregabalin [Lyrica] 150 mg PO BID@0800,2100 02/28/18 02/28/18 History Rivaroxaban [Xarelto] 20 mg PO HS@1700 02/28/18 02/28/18 History Triamcinolone 0.5% Cream [Kenalog 1 applic TOPICAL BID 02/28/18 02/28/18 History 0.5% Cream] guaiFENesin [Mucinex] 600 mg PO BID 02/28/18 02/28/18 History Allergies Allergy/AdvReac Type Severity Reaction Status Date / Time No Known Allergies Allergy Verified 02/28/18 09:06 Physical Exam Vitals: Vital Signs Temp Pulse Resp BP Pulse Ox 02/28/18 14:00 103 H 26 H 106/51 92 L 02/28/18 13:00 123 H 25 H 120/59 95 02/28/18 12:30 98.1 F 139 H 20 111/58 92 L 02/28/18 12:00 123 H 18 113/68 91 L 02/28/18 11:36 121 H 02/28/18 11:30 113 H 29 H 115/66 98 02/28/18 11:24 120 H 02/28/18 11:00 106 H 24 112/77 92 L 02/28/18 10:30 125 H 16 120/87 92 L 02/28/18 10:00 121 H 26 H 93/64 92 L 02/28/18 09:30 130 H 25 H 107/56 93 L 02/28/18 09:00 96 27 H 113/59 95 02/28/18 08:30 97 26 H 112/73 95 02/28/18 08:10 99 02/28/18 08:00 98.3 F 112 H 23 111/57 97 02/28/18 07:56 100 02/28/18 07:30 83 20 110/61 94 L 02/28/18 07:00 76 24 110/58 93 L 02/28/18 06:45 82 22 105/52 94 L 02/28/18 06:30 89 23 100/50 93 L 02/28/18 06:15 85 26 H 94/52 92 L 02/28/18 06:00 84 24 83/52 93 L 02/28/18 05:45 69 22 91/51 93 L 02/28/18 05:30 85 21 104/55 86 L 02/28/18 05:15 97.3 F L 101 H 23 92/55 92 L 02/28/18 05:00 86 23 91/46 91 L 02/28/18 04:45 100 24 79/47 89 L 02/28/18 04:30 87 20 97/48 89 L 02/28/18 04:15 93 19 97/51 89 L 02/28/18 04:00 93 28 H 83/63 90 L 02/28/18 03:45 104 H 34 H 95/59 92 L 02/28/18 03:30 114 H 27 H 106/57 93 L 02/28/18 03:15 90 22 86/59 93 L 02/28/18 03:00 101 H 24 106/62 91 L 02/28/18 02:45 93 29 H 104/59 89 L 02/28/18 02:30 85 23 113/61 90 L 02/28/18 02:15 110 H 29 H 99/62 92 L 02/28/18 02:00 95 37 H 82/57 91 L 02/28/18 01:45 98.2 F 100 30 H 76/45 91 L 02/28/18 01:31 103 H 24 89 L 02/28/18 01:03 97.9 F 103 H 22 96/55 93 L 08/30/18 00:18 117 H 21 86/53 97 02/28/18 00:08 106 H 02/27/18 23:55 22 02/27/18 23:50 111 H 20 79/46 92 L 02/27/18 23:11 105 H 20 86/50 93 L 18 22:50 102 H 02/27/18 22:40 101 H 02/27/18 22:19 98.4 F 110 H 20 92/58 92 L Intake and Output 02/28/18 02/28/18 02/28/18 06:59 14:59 22:59 Intake Total 1371.050 564.011 Output Total 819 1950 Balance 552.050 -1385.989 Intake: IV 1360.0 210 0.9 Fluid bolus 1250 Piperacillin-Tazobactam 3 50.0 50 .375 gm In Dextrose/Water 1 50ml.bag @ 12.5 mls/hr IVPB ONCE STA Rx#: [id number] Sodium Chloride 0.9% 1, 60 160 000 ml @ 20 mls/hr IV . Q24H [facility] Rx#:[id number] Intake, IV Titration 11.050 354.011 Amount Diltiazem 50 mg In Sodium 10 Chloride 0.9% 40 ml @ 10 MG/HR 10 mls/hr IV .Q5H [facility] Rx#:[id number] Insulin Regular 100 unit 97.600 In Sodium Chloride 0.9% 100 ml @ Per Protocol IV .Q0M [facility] Rx#:[id number] Magnesium Sulfate-D5w Pmx 200 1 gm In Dextrose/Water 1 100ml.bag @ 100 mls/hr IVPB Q1H [facility] Rx#: [id number] Norepinephrine 16 mg In 11.050 46.411 Sodium Chloride 0.9% 250 ml @ Titrate IV .Q0M [facility] Rx#:[id number] Output: Urine 819 1950 Other: Voiding Method Indwelling Catheter Weight 138.2 kg 138.2 kg GENERAL EXAM: Patient is alert and oriented and doesn't appear to be in any acute distress HEENT: Normocephalic. Normal reaction of pupils, equal size, normal range of extraocular motion. No erythema or exudates in the throat. NECK: No masses, no nuchal rigidity. CHEST: No chest wall deformity. LUNGS: Expiratory rhonchi and wheezing HEART: S1 and S2 normal. Irregular rhythm ABDOMEN: No hepatosplenomegaly, normal bowel sounds, no guarding or rigidity. SKIN: No rashes CENTRAL NERVOUS SYSTEM: No focal deficits. EXTREMITIES: No cyanosis, clubbing or. Moderate edema Results 02/28/18 04:45 02/28/18 04:45 Cardiac Enzymes 02/27/18 02/27/18 Range/Units 22:16 22:16 AST 19 (17-59) U/L CK-MB (CK-2) 0.5 (0.0-2.4) ng/mL Troponin I 0.014 (0.000-0.034) ng/mL Coagulation 02/27/18 Range/Units 22:16 PT 12.9 H (9.0-12.0) sec APTT 34.4 H (22.0-30.0) sec CBC 02/27/18 02/28/18 Range/Units 22:16 04:45 WBC 12.2 H 10.0 (3.8-10.6) k/uL RBC 3.26 L 3.21 L (4.30-5.90) m/uL Hgb 9.6 L 9.3 L (13.0-17.5) gm/dL Hct 29.8 L 30.1 L (39.0-53.0) % Plt Count 228 219 (150-450) k/uL Comprehensive Metabolic Panel 02/27/18 02/28/18 Range/Units 22:16 04:45 Sodium 134 L 137 (137-145) mmol/L Potassium 4.8 4.5 (3.5-5.1) mmol/L Chloride 83 L 86 L (98-107) mmol/L Carbon Dioxide 40 H* 39 H (22-30) mmol/L BUN 57 H 55 H (9-20) mg/dL Creatinine 1.77 H 1.76 H (0.66-1.25) mg/dL Glucose 171 H 170 H (74-99) mg/dL Calcium 8.3 L 8.0 L (8.4-10.2) mg/dL AST 19 (17-59) U/L ALT 30 (21-72) U/L Alkaline Phosphatase 67 (38-126) U/L Total Protein 5.9 L (6.3-8.2) g/dL Albumin 3.4 L (3.5-5.0) g/dL Current Medications Generic Name Dose Route Start Last Admin Trade Name Freq PRN Reason Stop Dose Admin Acetaminophen 650 mg 02/28/18 03:58 Tylenol Tab PO Q4HR PRN Fever and/or Mild Pain Albuterol/Ipratropium 3 ml 02/28/18 08:00 02/28/18 11:24 Duoneb 0.5 Mg-3 Mg/3 Ml Soln INHALATION 3 ml RT-QID [facility] Administration Albuterol/Ipratropium 3 ml 02/28/18 00:24 Duoneb 0.5 Mg-3 Mg/3 Ml Soln INHALATION RT-Q4H PRN shortness of breath Atorvastatin Calcium 20 mg 02/28/18 21:00 Lipitor PO HS@2100 [facility] Bisacodyl 10 mg 02/28/18 12:07 Dulcolax RECTAL DAILY PRN Constipation Budesonide 1 mg 02/28/18 20:00 Pulmicort INHALATION RT-BID [facility] Ergocalciferol 50,000 unit 03/02/18 12:00 Vitamin D2 PO Sa@1200 [facility] Ferrous Sulfate 325 mg 03/02/18 12:00 Feosol PO Sa@1200 [facility] Guaifenesin 1,200 mg 02/28/18 12:15 02/28/18 13:15 Mucinex PO 1,200 mg Q12HR [facility] Administration Piperacillin/Tazobactam/ 50 mls @ 12.5 mls/hr 02/28/18 08:00 02/28/18 08:56 Dextrose 3.375 gm/ IV Solution IVPB 03/10/18 08:01 12.5 mls/hr Q8HR [facility] Administration Sodium Chloride 1,000 mls @ 20 mls/hr 02/28/18 04:00 02/28/18 04:27 Saline 0.9% IV 20 mls/hr .Q24H [facility] Administration Norepinephrine Bitartrate 16 266 mls @ 0 mls/hr 02/28/18 04:04 02/28/18 10:43 mg/ Sodium Chloride IV 0 mcg/min .Q0M [facility] 0 mls/hr Titration Protocol Titrate Insulin Human Regular 100 unit 101 mls @ 0 mls/hr 02/28/18 04:45 02/28/18 14: 14 / Sodium Chloride IV 20 units/hr .Q0M [facility] 20.2 mls/hr Administration Protocol Per Protocol Levofloxacin 750 mg/ IV 150 mls @ 100 mls/hr 02/28/18 21:00 Solution IVPB 03/13/18 21:01 Q48H [facility] Diltiazem HCl 50 mg/ Sodium 50 mls @ 10 mls/hr 02/28/18 12:15 02/28/18 13:02 Chloride IV 10 mg/hr .Q5H [facility] 10 mls/hr Administration 10 MG/HR Insulin Detemir 10 unit 02/28/18 21:00 Levemir SQ HS@2100 [facility] Insulin Human Regular 13.7 unit 02/28/18 04:03 Humulin R Bolus From Bag 0.1 unit/kg (13.7 unit) 03/01/18 04:04 IV ONCE PRN Blood Sugar - High Magnesium Hydroxide 2,400 mg 02/28/18 12:07 Milk Of Magnesia PO DAILY PRN Constipation Melatonin 3 mg 02/28/18 12:07 Melatonin PO HS PRN Insomnia Methylprednisolone Sodium Succinate 60 mg 02/28/18 00:30 02/28/18 11:57 Solu-Medrol IV 60 mg Q6HR [facility] Administration Metolazone 2.5 mg 03/01/18 06:00 Zaroxolyn PO MOWEFR@0600 [facility] Miscellaneous Information 1 each 02/28/18 00:24 Pneumonia Protocol Utilized PO ONCE PRN Per Protocol Naloxone HCl 0.2 mg 02/28/18 03:58 Narcan IV Q2M PRN Opioid Reversal Nystatin 1 applic 02/28/18 21:00 Mycostatin Cream TOPICAL BID@0800,2100 [facility] Pantoprazole Sodium 40 mg 02/28/18 07:30 02/28/18 08:56 Protonix PO 40 mg AC-BRKFST [facility] Administration Pregabalin 150 mg 02/28/18 21:00 Lyrica PO BID@0800,2100 [facility] Rivaroxaban 20 mg 02/28/18 17:00 Xarelto PO HS@1700 [facility] Ropinirole HCl 1 mg 02/28/18 21:00 Requip PO HS [facility] Ropinirole HCl 0.5 mg 02/28/18 21:00 Requip PO HS@2100 [facility] Tamsulosin HCl 0.4 mg 03/01/18 08:30 Flomax PO PC-BRKFST [facility] Triamcinolone Acetonide 1 applic 02/28/18 21:00 Kenalog 0.5% Cream TOPICAL BID [facility] Intake and Output 02/28/18 02/28/18 02/28/18 06:59 14:59 22:59 Intake Total 1371.050 564.011 Output Total 819 1950 Balance 552.050 -1385.989 Intake: IV 1360.0 210 0.9 Fluid bolus 1250 Piperacillin-Tazobactam 3 50.0 50 .375 gm In Dextrose/Water 1 50ml.bag @ 12.5 mls/hr IVPB ONCE STA Rx#: [id number] Sodium Chloride 0.9% 1, 60 160 000 ml @ 20 mls/hr IV . Q24H [facility] Rx#:[id number] Intake, IV Titration 11.050 354.011 Amount Diltiazem 50 mg In Sodium 10 Chloride 0.9% 40 ml @ 10 MG/HR 10 mls/hr IV .Q5H [facility] Rx#:[id number] Insulin Regular 100 unit 97.600 In Sodium Chloride 0.9% 100 ml @ Per Protocol IV .Q0M [facility] Rx#:[id number] Magnesium Sulfate-D5w Pmx 200 1 gm In Dextrose/Water 1 100ml.bag @ 100 mls/hr IVPB Q1H [facility] Rx#: [id number] Norepinephrine 16 mg In 11.050 46.411 Sodium Chloride 0.9% 250 ml @ Titrate IV .Q0M [facility] Rx#:[id number] Output: Urine 819 1950 Other: Voiding Method Indwelling Catheter Weight 138.2 kg 138.2 kg Patient Weight 03/01/18 06:59 Weight 138.2 kg 02/28/18 04:45 02/28/18 04:45 EKG Interpretations (text) Afibrillation with rapid ventricular response Assessment and Plan (1) A-fib Current Visit: No Status: Acute Code(s): I48.91 - UNSPECIFIED ATRIAL FIBRILLATION SNOMED Code(s): 57334074 (2) Acute respiratory failure with hypoxia and hypercarbia Current Visit: No Status: Acute Code(s): J96.01 - ACUTE RESPIRATORY FAILURE WITH HYPOXIA; J96.02 - ACUTE RESPIRATORY FAILURE WITH HYPERCAPNIA SNOMED Code( s): 797007482 (3) CHF (congestive heart failure) Current Visit: No Status: Acute Code(s): I50.9 - HEART FAILURE, UNSPECIFIED SNOMED Code(s): 26493362 (4) Carcinoid tumor of small intestine Current Visit: No Status: Acute Code(s): D3A.019 - BENIGN CARCINOID TUMOR OF THE SMALL INTESTINE, UNSP PORTION SNOMED Code(s): 254634257 (5) Pulmonary hypertension Current Visit: No Status: Acute Code(s): I27.20 - PULMONARY HYPERTENSION, UNSPECIFIED SNOMED Code(s): 98635678 (6) Renal failure Current Visit: No Status: Acute Code(s): N19 - UNSPECIFIED KIDNEY FAILURE SNOMED Code(s): 62788006 Plan: Continue with IV Cardizem drip for rate control. He is also on anticoagulation therapy. Continue to pulmonary inhalers and antibiotics. Further recommendations depend upon the clinical course.
[2018-02-28] MEDS ORDERED: metFORMIN 500 MG TAB PO SCH (17:00)
[2018-02-28 17:03] LABS: Glucose,Whole Blood 157 mg/dL (75-99)
[2018-02-28 18:06] LABS: Glucose,Whole Blood 168 mg/dL (75-99)
[2018-02-28] MEDS: RIVAROXABAN 20 MG TAB PO SCH (18:22)
[2018-02-28 20:38] LABS: Glucose,Whole Blood 204 mg/dL (75-99)
[2018-02-28 20:56] LABS: Glucose,Whole Blood 203 mg/dL (75-99)
[2018-02-28] MEDS ORDERED: LEVOFLOXACIN 750MG-D5W PMX 750 MG in DEXTROSE/WATER 1 150ML.BAG IVPB SCH (21:00)
[2018-02-28] MEDS ORDERED: INSULIN DETEMIR 100 UNIT/ML 10 ML VIAL SQ SCH (21:00)
[2018-02-28] MEDS: ATORVASTATIN 20 MG TAB PO SCH (21:03)
[2018-02-28] MEDS: PREGABALIN 75 MG CAP PO SCH (21:09)
[2018-02-28] MEDS: TRIAMCINOLONE ACET 0.5% CREAM 15 GM TUBE TOPICAL SCH ×2 (21:09→21:49)
[2018-02-28] MEDS: NYSTATIN 100,000UNIT/GM CREAM 30 GM TUBE TOPICAL SCH ×2 (21:09→21:49)
[2018-02-28] MEDS: BUDESONIDE 1 MG/2 ML NEBU INHALATION SCH (21:14)
[2018-02-28 22:44] LABS: Glucose,Whole Blood 175 mg/dL (75-99)
[2018-02-28 23:38] LABS: Glucose,Whole Blood 189 mg/dL (75-99)
[2018-03-01] MEDS: DILTIAZEM 50 MG in SODIUM CHLORIDE 0.9% 40 ML IV SCH ×6 (00:14→23:00)
[2018-03-01] MEDS: methylPREDNISolone SOD SUCCI 125 MG/2 ML VIAL IV SCH ×5 (00:29→23:00)
[2018-03-01] MEDS: PIPERACILLIN-TAZOBACTAM 3.375 GM in DEXTROSE/WATER 1 50ML.BAG IVPB SCH ×4 (00:29→23:00)
[2018-03-01 01:12] LABS: Glucose,Whole Blood 192 mg/dL (75-99)
[2018-03-01 02:05] LABS: Glucose,Whole Blood 182 mg/dL (75-99)
[2018-03-01 03:07] LABS: Glucose,Whole Blood 140 mg/dL (75-99)
[2018-03-01 04:14] LABS: Glucose,Whole Blood 127 mg/dL (75-99)
[2018-03-01] MEDS: SODIUM CHLORIDE 0.9% 1,000 ML IV SCH (04:17)
[2018-03-01 05:02] LABS: Anisocytosis Slight; Basophils % (A) 0 %; Eosinophils % (A) 0 %; HCT 32.3 % (39.0-53.0); Hypochromasia Slight; Lymphocytes # (A) 0.7 k/uL (1.0-4.8); Lymphocytes % (A) 5 %; MCH 28.7 pg (25.0-35.0); MCHC 30.8 g/dL (31.0-37.0); MCV 93.1 fL (80.0-100.0); Mean Platelet Volume 7.1; Monocytes # (A) 0.4 k/uL (0-1.0); Monocytes % (A) 2 %; Neutrophils # (A) 13.1 k/uL (1.3-7.7); Neutrophils % (A) 92 %; Platelet Count 234 k/uL (150-450); RBC 3.47 m/uL (4.30-5.90); RDW 17.4 % (11.5-15.5); WBC 14.3 k/uL (3.8-10.6)
[2018-03-01 05:25] LABS: Calcium 7.9 mg/dL (8.4-10.2); Magnesium 2.7 mg/dL (1.6-2.3); Phosphorus 4.3 mg/dL (2.5-4.5)
[2018-03-01 05:29] LABS: Glucose,Whole Blood 175 mg/dL (75-99)
[2018-03-01] MEDS ORDERED: PANTOPRAZOLE 40 MG TABLET PO SCH (06:00)
[2018-03-01 06:16] LABS: Glucose,Whole Blood 174 mg/dL (75-99)
[2018-03-01] MEDS: METOLAZONE 2.5 MG TAB PO SCH (06:31)
[2018-03-01 07:03] LABS: Glucose,Whole Blood 184 mg/dL (75-99)
[2018-03-01 08:13] LABS: Glucose,Whole Blood 219 mg/dL (75-99)
[2018-03-01] MEDS: TAMSULOSIN 0.4 MG CAP.ER.24H PO SCH (08:25)
[2018-03-01] MEDS: PANTOPRAZOLE 40 MG TABLET PO SCH (08:25)
[2018-03-01] MEDS: PREGABALIN 75 MG CAP PO SCH ×2 (08:25→22:35)
[2018-03-01] MEDS: guaiFENesin 600 MG TABLET.ER PO SCH ×2 (08:25→22:16)
[2018-03-01] MEDS: BUDESONIDE 1 MG/2 ML NEBU INHALATION SCH ×2 (08:29→20:05)
[2018-03-01] MEDS: IPRATROPIUM-ALBUTEROL 3 ML NEB INHALATION SCH ×5 (08:29→20:05)
[2018-03-01] MEDS: NYSTATIN 100,000UNIT/GM CREAM 30 GM TUBE TOPICAL SCH ×3 (08:53→22:21)
[2018-03-01 09:11] LABS: Glucose,Whole Blood 319 mg/dL (75-99)
--- NOTE | 2018-03-01 09:13 | P.PN ---
Subjective Progress Note Date: 03/01/18 This is 68-year-old gentleman with history of severe COPD, pulmonary hypertension and chronic diastolic CHF and atrial fibrillation was admitted to the hospital with increasing shortness of breath, cough and congestion and also hypotension. Patient is relatively stable. His blood pressures in the range of 100 systolic. Patient has A. fib with RVR and currently on IV Cardizem. I' m going to change to by mouth Lopressor. He was also on metolazone and Aldactone and several other medications which can be slowly resumed. His overall is feeling better. His lungs are clear. Slightly tachycardic. We'll continue current medical therapy and initiated Lopressor 12.5 mg by mouth twice a day. The dose will be gradually increased as tolerated Objective - Vital Signs Vital signs: Vital Signs Temp 98.4 F 03/01/18 08:00 Pulse 110 H 03/01/18 08:43 Resp 26 H 03/01/18 08:00 BP 110/62 03/01/18 08:00 Pulse Ox 93 L 03/01/18 08:00 Intake & Output 02/28/18 03/01/18 03/01/18 18:59 06:59 18:59 Intake Total 754.954 605.054 78.364 Output Total 2430 1285 100 Balance -1675.046 -679.946 -21.636 Weight 138.2 kg 138 kg 138 kg Intake: IV 310 420 40 Levofloxacin 750Mg-D5w 150 Pmx 750 mg In Dextrose/ Water 1 150ml.bag @ 100 mls/hr IVPB Q48H [facility] Rx#: [id number] Piperacillin-Tazobactam 3 50 50 .375 gm In Dextrose/Water 1 50ml.bag @ 12.5 mls/hr IVPB ONCE [facility] Rx#: [id number] Sodium Chloride 0.9% 1, 260 220 40 000 ml @ 20 mls/hr IV . Q24H [facility] Rx#:[id number] Intake, IV Titration 444.954 185.054 38.364 Amount Diltiazem 50 mg In Sodium 46.167 90.333 Chloride 0.9% 40 ml @ 10 MG/HR 10 mls/hr IV .Q5H [facility] Rx#:[id number] Insulin Regular 100 unit 152.376 94.721 38.364 In Sodium Chloride 0.9% 100 ml @ Per Protocol IV .Q0M [facility] Rx#:[id number] Magnesium Sulfate-D5w Pmx 200 1 gm In Dextrose/Water 1 100ml.bag @ 100 mls/hr IVPB Q1H [facility] Rx#: [id number] Norepinephrine 16 mg In 46.411 Sodium Chloride 0.9% 250 ml @ Titrate IV .Q0M [facility] Rx#:[id number] Output: Urine 2430 1285 100 Other: Voiding Method Indwelling Catheter Indwelling Catheter - Exam GENERAL EXAM: Patient is alert and oriented and doesn't appear to be in any acute distress HEENT: Normocephalic. Normal reaction of pupils, equal size, normal range of extraocular motion. No erythema or exudates in the throat. NECK: No masses, no nuchal rigidity. CHEST: No chest wall deformity. LUNGS: Equal air entry with no crackles or wheeze. HEART: S1 and S2 is regular. Irregular Heart sounds ABDOMEN: No hepatosplenomegaly, normal bowel sounds, no guarding or rigidity. SKIN: No rashes CENTRAL NERVOUS SYSTEM: No focal deficits. EXTREMITIES: No cyanosis, clubbing or edema. - Labs CBC & Chem 7: 03/01/18 04:30 03/01/18 04:30 Labs: Abnormal Lab Results - Last 24 Hours (Table) 02/28/18 02/28/18 02/28/18 Range/Units 04:45 09:17 10:05 WBC (3.8-10.6) k/uL RBC (4.30-5.90) m/uL Hgb (13.0-17.5) gm/dL Hct (39.0-53.0) % MCHC (31.0-37.0) g/dL RDW (11.5-15.5) % Neutrophils # (1.3-7.7) k/uL Lymphocytes # (1.0-4.8) k/uL Sodium (137-145) mmol/L Chloride (98-107) mmol/L Carbon Dioxide (22-30) mmol/L BUN (9-20) mg/dL Creatinine (0.66-1.25) mg/dL Glucose (74-99) mg/dL POC Glucose (mg/dL) 194 H 347 H (75-99) mg/dL Hemoglobin A1c 7.1 H (4.0-6.0) % Calcium (8.4-10.2) mg/dL Magnesium (1.6-2.3) mg/dL 02/28/18 02/28/18 02/28/18 Range/Units 11:04 12:03 13:10 WBC (3.8-10.6) k/uL RBC (4.30-5.90) m/uL Hgb (13.0-17.5) gm/dL Hct (39.0-53.0) % MCHC (31.0-37.0) g/dL RDW (11.5-15.5) % Neutrophils # (1.3-7.7) k/uL Lymphocytes # (1.0-4.8) k/uL Sodium (137-145) mmol/L Chloride (98-107) mmol/L Carbon Dioxide (22-30) mmol/L BUN (9-20) mg/dL Creatinine (0.66-1.25) mg/dL Glucose (74-99) mg/dL POC Glucose (mg/dL) 292 H 241 H 276 H (75-99) mg/dL Hemoglobin A1c (4.0-6.0) % Calcium (8.4-10.2) mg/dL Magnesium (1.6-2.3) mg/dL 02/28/18 02/28/18 02/28/18 Range/Units 14:13 15:01 17:01 WBC (3.8-10.6) k/uL RBC (4.30-5.90) m/uL Hgb (13.0-17.5) gm/dL Hct (39.0-53.0) % MCHC (31.0-37.0) g/dL RDW (11.5-15.5) % Neutrophils # (1.3-7.7) k/uL Lymphocytes # (1.0-4.8) k/uL Sodium (137-145) mmol/L Chloride (98-107) mmol/L Carbon Dioxide (22-30) mmol/L BUN (9-20) mg/dL Creatinine (0.66-1.25) mg/dL Glucose (74-99) mg/dL POC Glucose (mg/dL) 275 H 236 H 157 H (75-99) mg/dL Hemoglobin A1c (4.0-6.0) % Calcium (8.4-10.2) mg/dL Magnesium (1.6-2.3) mg/dL 02/28/18 02/28/18 02/28/18 Range/Units 18:02 20:36 20:54 WBC (3.8-10.6) k/uL RBC (4.30-5.90) m/uL Hgb (13.0-17.5) gm/dL Hct (39.0-53.0) % MCHC (31.0-37.0) g/dL RDW (11.5-15.5) % Neutrophils # (1.3-7.7) k/uL Lymphocytes # (1.0-4.8) k/uL Sodium (137-145) mmol/L Chloride (98-107) mmol/L Carbon Dioxide (22-30) mmol/L BUN (9-20) mg/dL Creatinine (0.66-1.25) mg/dL Glucose (74-99) mg/dL POC Glucose (mg/dL) 168 H 204 H 203 H (75-99) mg/dL Hemoglobin A1c (4.0-6.0) % Calcium (8.4-10.2) mg/dL Magnesium (1.6-2.3) mg/dL 02/28/18 02/28/18 03/01/18 Range/Units 22:42 23:36 01:10 WBC (3.8-10.6) k/uL RBC (4.30-5.90) m/uL Hgb (13.0-17.5) gm/dL Hct (39.0-53.0) % MCHC (31.0-37.0) g/dL RDW (11.5-15.5) % Neutrophils # (1.3-7.7) k/uL Lymphocytes # (1.0-4.8) k/uL Sodium (137-145) mmol/L Chloride (98-107) mmol/L Carbon Dioxide (22-30) mmol/L BUN (9-20) mg/dL Creatinine (0.66-1.25) mg/dL Glucose (74-99) mg/dL POC Glucose (mg/dL) 175 H 189 H 192 H (75-99) mg/dL Hemoglobin A1c (4.0-6.0) % Calcium (8.4-10.2) mg/dL Magnesium (1.6-2.3) mg/dL 03/01/18 03/01/18 03/01/18 Range/Units 02:03 03:05 04:12 WBC (3.8-10.6) k/uL RBC (4.30-5.90) m/uL Hgb (13.0-17.5) gm/dL Hct (39.0-53.0) % MCHC (31.0-37.0) g/dL RDW (11.5-15.5) % Neutrophils # (1.3-7.7) k/uL Lymphocytes # (1.0-4.8) k/uL Sodium (137-145) mmol/L Chloride (98-107) mmol/L Carbon Dioxide (22-30) mmol/L BUN (9-20) mg/dL Creatinine (0.66-1.25) mg/dL Glucose (74-99) mg/dL POC Glucose (mg/dL) 182 H 140 H 127 H (75-99) mg/dL Hemoglobin A1c (4.0-6.0) % Calcium (8.4-10.2) mg/dL Magnesium (1.6-2.3) mg/dL 03/01/18 03/01/18 03/01/18 Range/Units 04:30 04:30 05:27 WBC 14.3 H (3.8-10.6) k/uL RBC 3.47 L (4.30-5.90) m/uL Hgb 10.0 L (13.0-17.5) gm/dL Hct 32.3 L (39.0-53.0) % MCHC 30.8 L (31.0-37.0) g/dL RDW 17.4 H (11.5-15.5) % Neutrophils # 13.1 H (1.3-7.7) k/uL Lymphocytes # 0.7 L (1.0-4.8) k/uL Sodium 135 L (137-145) mmol/L Chloride 86 L (98-107) mmol/L Carbon Dioxide 40 H* (22-30) mmol/L BUN 47 H (9-20) mg/dL Creatinine 1.30 H (0.66-1.25) mg/dL Glucose 124 H (74-99) mg/dL POC Glucose (mg/dL) 175 H (75-99) mg/dL Hemoglobin A1c (4.0-6.0) % Calcium 7.9 L (8.4-10.2) mg/dL Magnesium 2.7 H (1.6-2.3) mg/dL 03/01/18 03/01/18 03/01/18 Range/Units 06:14 07:01 08:11 WBC (3.8-10.6) k/uL RBC (4.30-5.90) m/uL Hgb (13.0-17.5) gm/dL Hct (39.0-53.0) % MCHC (31.0-37.0) g/dL RDW (11.5-15.5) % Neutrophils # (1.3-7.7) k/uL Lymphocytes # (1.0-4.8) k/uL Sodium (137-145) mmol/L Chloride (98-107) mmol/L Carbon Dioxide (22-30) mmol/L BUN (9-20) mg/dL Creatinine (0.66-1.25) mg/dL Glucose (74-99) mg/dL POC Glucose (mg/dL) 174 H 184 H 219 H (75-99) mg/dL Hemoglobin A1c (4.0-6.0) % Calcium (8.4-10.2) mg/dL Magnesium (1.6-2.3) mg/dL Microbiology - Last 24 Hours (Table) 02/28/18 12:10 Gram Stain - Preliminary Sputum 02/28/18 00:12 Blood Culture - Preliminary Blood No Growth after 24 hours 02/28/18 03:50 Urine Culture - Preliminary Urine,Catheterized Assessment and Plan (1) A-fib Current Visit: No Status: Acute Code(s): I48.91 - UNSPECIFIED ATRIAL FIBRILLATION SNOMED Code(s): 44069135 (2) Acute respiratory failure with hypoxia and hypercarbia Current Visit: No Status: Acute Code(s): J96.01 - ACUTE RESPIRATORY FAILURE WITH HYPOXIA; J96.02 - ACUTE RESPIRATORY FAILURE WITH HYPERCAPNIA SNOMED Code( s): 296504139 (3) CHF (congestive heart failure) Current Visit: No Status: Acute Code(s): I50.9 - HEART FAILURE, UNSPECIFIED SNOMED Code(s): 37296984 (4) Carcinoid tumor of small intestine Current Visit: No Status: Acute Code(s): D3A.019 - BENIGN CARCINOID TUMOR OF THE SMALL INTESTINE, UNSP PORTION SNOMED Code(s): 062424950 (5) Pulmonary hypertension Current Visit: No Status: Acute Code(s): I27.20 - PULMONARY HYPERTENSION, UNSPECIFIED SNOMED Code(s): 42434578 (6) Renal failure Current Visit: No Status: Acute Code(s): N19 - UNSPECIFIED KIDNEY FAILURE SNOMED Code(s): 55159583 Plan: Continue with IV Cardizem drip for rate control. He is also on anticoagulation therapy. Continue to pulmonary inhalers and antibiotics. Further recommendations depend upon the clinical course. Patient is going to be started on by mouth Lopressor. Anti-cognition therapy continued. Possible transfer to telemetry unit and increase activity
[2018-03-01] MEDS: INSULIN REGULAR 100 UNIT in SODIUM CHLORIDE 0.9% 100 ML IV SCH (09:55)
[2018-03-01] MEDS: TRIAMCINOLONE ACET 0.5% CREAM 15 GM TUBE TOPICAL SCH ×3 (09:55→22:21)
[2018-03-01 09:56] LABS: Glucose,Whole Blood 333 mg/dL (75-99)
--- NOTE | 2018-03-01 10:07 | XR ---
EXAMINATION TYPE: XR chest 1V DATE OF EXAM: 03/01/2018 COMPARISON: 02/28/2018 HISTORY: Shortness of breath TECHNIQUE: Single frontal view of the chest is obtained. FINDINGS: Cardiomegaly again noted with bilateral consolidation small effusion. Central venous conge stion not excluded. Postoperative changes seen. No pneumothorax. Diffuse osteopenia and arthropathy of the shoulders. IMPRESSION: 1. Stable bilateral consolidation and pleural effusion. Mild venous congestion not excluded.
[2018-03-01] MEDS: METOPROLOL TARTRATE 12.5 MG TAB PO SCH ×2 (10:17→22:15)
[2018-03-01 11:11] LABS: Glucose,Whole Blood 255 mg/dL (75-99)
[2018-03-01 12:24] LABS: Glucose,Whole Blood 149 mg/dL (75-99)
[2018-03-01] MEDS: INSULIN ASPART 100 UNIT/ML 1 ML 10 ML VIAL SQ SCH ×5 (12:43→22:23)
[2018-03-01 13:20] LABS: Glucose,Whole Blood 225 mg/dL (75-99)
--- NOTE | 2018-03-01 13:36 | P.PN ---
Subjective Progress Note Date: 03/01/18 67-year-old male one of Dr. Dsouza's patient who seen in 02/12/2018 for acute on chronic hypercapnic and hypoxemic respiratory failure, advanced COPD with acute metabolic encephalopathy of unclear etiology possibly related to hypoxemia and hypercapnia, possible TIA. he currently is in [facility] for subacute rehabilitation,. Medications newly started on discharge was Flomax metoprolol melatonin and insulin NovoLog scale along with maintenance medications, otherwise patient is at baseline medication. He has severe pulmonary hypertension, known paroxysmal atrial fibrillation, now long- term anticoagulation, chronic diastolic CHF, restless leg, diabetes mellitus type 2, CK D stage II with recent acute kidney injury from over diuresing at [facility] 01/17/2018. He had transient use of hemodialysis followed by Dr. Nelson no currently not on any hemodialysis program. No mention of urinary retention, patient was not placed on a Mcgill catheter prior to his last discharge from our facility. He presents to the emergency room secondary to fever of 102, yellowish brown productive cough, shortness of breath increasing cough, and worsening dyspnea. He chronically has some leg swelling bilaterally, no calf pain, no calf tenderness, no chest pain, he is He was subsequently transferred to ICU secondary to hypotension . His WBC count ER was 12.2, creatinine of 1.7 BUN of 57, CO2 of 40, chest x-ray shows chronic infiltrate and atelectasis, no definite CHF, he is proBNP is 1620, urinalysis is normal troponin is 0.014. 03/01: Patient is followed by pulmonary medicine, Dr. Olea and cardiology. Heart rate is in the low 100s, respiratory rate in the 20s, pulse ox 93% on 4 L. Patient was on BiPAP during the night. He remains on Cardizem drip. The Levophed is off. Patient has been afebrile since admission. Blood sugars are running 174-333. Patient will be transitioned off the insulin drip, Levemir increased to 15 units at bedtime, NovoLog scale scheduled for units with meals and scale. White count is up to 14.3, hemoglobin is stable at 10. Renal function is improved with BUN 47 and creatinine 1.3. Blood culture showing no growth after 24 hours. Urine culture and sputum culture in progress. Patient states he has less cough and less productive cough today. He states he needs to have a bowel movement but can not use a bedpan. Nursing will make arrangements. Patient is to be transferred selective care today. Objective - Vital Signs Vital signs: Vital Signs Temp 98.4 F 03/01/18 08:00 Pulse 110 H 03/01/18 08:43 Resp 26 H 03/01/18 08:00 BP 110/62 03/01/18 08:00 Pulse Ox 93 L 03/01/18 08:00 Intake & Output 02/28/18 03/01/18 03/01/18 18:59 06:59 18:59 Intake Total 754.954 605.054 64.695 Output Total 2430 1285 100 Balance -1675.046 -679.946 -35.305 Weight 138.2 kg 138 kg 138 kg Intake: IV 310 420 40 Levofloxacin 750Mg-D5w 150 Pmx 750 mg In Dextrose/ Water 1 150ml.bag @ 100 mls/hr IVPB Q48H [facility] Rx#: [id number] Piperacillin-Tazobactam 3 50 50 .375 gm In Dextrose/Water 1 50ml.bag @ 12.5 mls/hr IVPB ONCE [facility] Rx#: [id number] Sodium Chloride 0.9% 1, 260 220 40 000 ml @ 20 mls/hr IV . Q24H [facility] Rx#:[id number] Intake, IV Titration 444.954 185.054 24.695 Amount Diltiazem 50 mg In Sodium 46.167 90.333 Chloride 0.9% 40 ml @ 10 MG/HR 10 mls/hr IV .Q5H [facility] Rx#:[id number] Insulin Regular 100 unit 152.376 94.721 24.695 In Sodium Chloride 0.9% 100 ml @ Per Protocol IV .Q0M [facility] Rx#:[id number] Magnesium Sulfate-D5w Pmx 200 1 gm In Dextrose/Water 1 100ml.bag @ 100 mls/hr IVPB Q1H [facility] Rx#: [id number] Norepinephrine 16 mg In 46.411 Sodium Chloride 0.9% 250 ml @ Titrate IV .Q0M [facility] Rx#:[id number] Output: Urine 2430 1285 100 Other: Voiding Method Indwelling Catheter Indwelling Catheter - Exam General appearance: cooperative, mild distress, morbidly obese, no acute distress - EENT Eyes: anicteric sclerae, EOMI, PERRLA, dentition normal, normal appearance ENT: normal oropharynx - Neck Neck: normal ROM - Respiratory Respiratory: bilateral: CTA, negative: diminished, dullness, rales - Cardiovascular Rhythm: regular Heart sounds: normal: S1, S2 Abnormal Heart Sounds: no systolic murmur, no diastolic murmur, no rub, no S3 Gallop, no S4 Gallop, no click, no other - Gastrointestinal General gastrointestinal: normal bowel sounds, soft - Integumentary Integumentary: decreased turgor, normal - Neurologic Neurologic: CNII-XII intact - Musculoskeletal Musculoskeletal: strength equal bilaterally - Psychiatric Psychiatric: A&O x's 3, intact judgment & insight - Labs CBC & Chem 7: 03/05/18 06:44 03/05/18 06:44 Labs: Abnormal Lab Results - Last 24 Hours (Table) 02/28/18 02/28/18 02/28/18 Range/Units 04:45 09:17 10:05 WBC (3.8-10.6) k/uL RBC (4.30-5.90) m/uL Hgb (13.0-17.5) gm/dL Hct (39.0-53.0) % MCHC (31.0-37.0) g/dL RDW (11.5-15.5) % Neutrophils # (1.3-7.7) k/uL Lymphocytes # (1.0-4.8) k/uL Sodium (137-145) mmol/L Chloride (98-107) mmol/L Carbon Dioxide (22-30) mmol/L BUN (9-20) mg/dL Creatinine (0.66-1.25) mg/dL Glucose (74-99) mg/dL POC Glucose (mg/dL) 194 H 347 H (75-99) mg/dL Hemoglobin A1c 7.1 H (4.0-6.0) % Calcium (8.4-10.2) mg/dL Magnesium (1.6-2.3) mg/dL 02/28/18 02/28/18 02/28/18 Range/Units 11:04 12:03 13:10 WBC (3.8-10.6) k/uL RBC (4.30-5.90) m/uL Hgb (13.0-17.5) gm/dL Hct (39.0-53.0) % MCHC (31.0-37.0) g/dL RDW (11.5-15.5) % Neutrophils # (1.3-7.7) k/uL Lymphocytes # (1.0-4.8) k/uL Sodium (137-145) mmol/L Chloride (98-107) mmol/L Carbon Dioxide (22-30) mmol/L BUN (9-20) mg/dL Creatinine (0.66-1.25) mg/dL Glucose (74-99) mg/dL POC Glucose (mg/dL) 292 H 241 H 276 H (75-99) mg/dL Hemoglobin A1c (4.0-6.0) % Calcium (8.4-10.2) mg/dL Magnesium (1.6-2.3) mg/dL 02/28/18 02/28/18 02/28/18 Range/Units 14:13 15:01 17:01 WBC (3.8-10.6) k/uL RBC (4.30-5.90) m/uL Hgb (13.0-17.5) gm/dL Hct (39.0-53.0) % MCHC (31.0-37.0) g/dL RDW (11.5-15.5) % Neutrophils # (1.3-7.7) k/uL Lymphocytes # (1.0-4.8) k/uL Sodium (137-145) mmol/L Chloride (98-107) mmol/L Carbon Dioxide (22-30) mmol/L BUN (9-20) mg/dL Creatinine (0.66-1.25) mg/dL Glucose (74-99) mg/dL POC Glucose (mg/dL) 275 H 236 H 157 H (75-99) mg/dL Hemoglobin A1c (4.0-6.0) % Calcium (8.4-10.2) mg/dL Magnesium (1.6-2.3) mg/dL 02/28/18 02/28/18 02/28/18 Range/Units 18:02 20:36 20:54 WBC (3.8-10.6) k/uL RBC (4.30-5.90) m/uL Hgb (13.0-17.5) gm/dL Hct (39.0-53.0) % MCHC (31.0-37.0) g/dL RDW (11.5-15.5) % Neutrophils # (1.3-7.7) k/uL Lymphocytes # (1.0-4.8) k/uL Sodium (137-145) mmol/L Chloride (98-107) mmol/L Carbon Dioxide (22-30) mmol/L BUN (9-20) mg/dL Creatinine (0.66-1.25) mg/dL Glucose (74-99) mg/dL POC Glucose (mg/dL) 168 H 204 H 203 H (75-99) mg/dL Hemoglobin A1c (4.0-6.0) % Calcium (8.4-10.2) mg/dL Magnesium (1.6-2.3) mg/dL 02/28/18 02/28/18 03/01/18 Range/Units 22:42 23:36 01:10 WBC (3.8-10.6) k/uL RBC (4.30-5.90) m/uL Hgb (13.0-17.5) gm/dL Hct (39.0-53.0) % MCHC (31.0-37.0) g/dL RDW (11.5-15.5) % Neutrophils # (1.3-7.7) k/uL Lymphocytes # (1.0-4.8) k/uL Sodium (137-145) mmol/L Chloride (98-107) mmol/L Carbon Dioxide (22-30) mmol/L BUN (9-20) mg/dL Creatinine (0.66-1.25) mg/dL Glucose (74-99) mg/dL POC Glucose (mg/dL) 175 H 189 H 192 H (75-99) mg/dL Hemoglobin A1c (4.0-6.0) % Calcium (8.4-10.2) mg/dL Magnesium (1.6-2.3) mg/dL 03/01/18 03/01/18 03/01/18 Range/Units 02:03 03:05 04:12 WBC (3.8-10.6) k/uL RBC (4.30-5.90) m/uL Hgb (13.0-17.5) gm/dL Hct (39.0-53.0) % MCHC (31.0-37.0) g/dL RDW (11.5-15.5) % Neutrophils # (1.3-7.7) k/uL Lymphocytes # (1.0-4.8) k/uL Sodium (137-145) mmol/L Chloride (98-107) mmol/L Carbon Dioxide (22-30) mmol/L BUN (9-20) mg/dL Creatinine (0.66-1.25) mg/dL Glucose (74-99) mg/dL POC Glucose (mg/dL) 182 H 140 H 127 H (75-99) mg/dL Hemoglobin A1c (4.0-6.0) % Calcium (8.4-10.2) mg/dL Magnesium (1.6-2.3) mg/dL 03/01/18 03/01/18 03/01/18 Range/Units 04:30 04:30 05:27 WBC 14.3 H (3.8-10.6) k/uL RBC 3.47 L (4.30-5.90) m/uL Hgb 10.0 L (13.0-17.5) gm/dL Hct 32.3 L (39.0-53.0) % MCHC 30.8 L (31.0-37.0) g/dL RDW 17.4 H (11.5-15.5) % Neutrophils # 13.1 H (1.3-7.7) k/uL Lymphocytes # 0.7 L (1.0-4.8) k/uL Sodium 135 L (137-145) mmol/L Chloride 86 L (98-107) mmol/L Carbon Dioxide 40 H* (22-30) mmol/L BUN 47 H (9-20) mg/dL Creatinine 1.30 H (0.66-1.25) mg/dL Glucose 124 H (74-99) mg/dL POC Glucose (mg/dL) 175 H (75-99) mg/dL Hemoglobin A1c (4.0-6.0) % Calcium 7.9 L (8.4-10.2) mg/dL Magnesium 2.7 H (1.6-2.3) mg/dL 03/01/18 03/01/18 03/01/18 Range/Units 06:14 07:01 08:11 WBC (3.8-10.6) k/uL RBC (4.30-5.90) m/uL Hgb (13.0-17.5) gm/dL Hct (39.0-53.0) % MCHC (31.0-37.0) g/dL RDW (11.5-15.5) % Neutrophils # (1.3-7.7) k/uL Lymphocytes # (1.0-4.8) k/uL Sodium (137-145) mmol/L Chloride (98-107) mmol/L Carbon Dioxide (22-30) mmol/L BUN (9-20) mg/dL Creatinine (0.66-1.25) mg/dL Glucose (74-99) mg/dL POC Glucose (mg/dL) 174 H 184 H 219 H (75-99) mg/dL Hemoglobin A1c (4.0-6.0) % Calcium (8.4-10.2) mg/dL Magnesium (1.6-2.3) mg/dL Microbiology - Last 24 Hours (Table) 02/28/18 12:10 Gram Stain - Preliminary Sputum 02/28/18 00:12 Blood Culture - Preliminary Blood No Growth after 24 hours 02/28/18 03:50 Urine Culture - Preliminary Urine,Catheterized Assessment and Plan Plan: 1. Sepsis with SIRS, pulmonary is most likely the source, has increasing productive purulent cough, and fever, continue Zosyn and Levaquin for gram- negative pneumonia, sputum and blood cultures to be obtained, pulmonary is following, Solu-Medrol 60 every 6 IV 2. Hypotension suspect septic shock, patient received vasopressors transiently , cardiology is on consult secondary to tachycardia, continue IV antibiotics 3. Acute on chronic hypercapnic and hypoxic respiratory failure. Consult with Dr. Olea appreciated. Continue O2 therapy, albuterol nebulizer every 4 hours as needed, Pulmicort 1 mg twice daily. 4. Acute kidney injury with chronic kidney disease stage II secondary to ATN from hypotension and sepsis, during his last admission he had recent acute kidney injury from aggressive diuresing. 5. Paroxysmal Atrial fibrillation with rapid ventricular response. Cardiology consult. Started on IV Cardizem drip. Lopressor dosing to be determined by drug and alcohol treatment specialist with IV Cardizem on board Xarelto has been resumed. 6. Pulmonary hypertension: Patient follows with pulmonary and cardiology. Continue Bumex, hold for parameters, continue valsartan continue metolazone 2.5 Sunday 7. Chronic diastolic heart failure. Continue Bumex 1 mg twice daily, Aldactone 25 mg twice daily, was on Toprol-XL 75 mg daily. Cardiology consult appreciated. 8. Restless leg syndrome: Remain on Requip 1.5 g daily at bedtime. 9. Hyperlipidemia: Has been on simvastatin 40 mg daily at bedtime. 10. Diabetes: Type II has been on insulin and metformin, Continue Levemir 10 units at bedtime and Accu-Chek with sliding scales coverage. 11. Chronic pain syndrome: Has been on Lyrica, Robaxin and scheduled oxycodone. 12. Advance COPD: Patient has been on Bumex, Pulmicort Ventolin. Continue O2 as well. 13. DVT prophylaxis: Patient has been on anticoagulation. 14. GI prophylaxis: Patient will be on pantoprazole 40 mg daily. CODE STATUS: Full code. Discharge plan: PT and OT and patient would benefit from subacute rehab returning to [facility] Impression and plan of care have been directed as dictated by the signing physician. Larissa Warner nurse practitioner acting as scribe for signing physician.
--- NOTE | 2018-03-01 13:48 | P.PN ---
Subjective Progress Note Date: 03/01/18 Principal diagnosis: Acute on chronic hypoxic and hypercapnic respiratory failure secondary to COPD and congestive heart failure, possible component of hospital-acquired pneumonia. This is a 68-year-old white male with recent admission to the hospital for acute on chronic hypoxic and hypercapnic respiratory failure, known to have severe COPD, patient was recently discharged to [facility], and he was undergoing rehab. Patient is known to have severe pulmonary hypertension, paroxysmal atrial fibrillation, diastolic congestive heart failure, type 2 diabetes, chronic kidney disease stage II, and at one point he received transient hemodialysis. At any rate patient was brought into the ER from the longterm complaining of increased shortness of breath, low-grade fever, and cough. Chest x-ray showed chronic infiltrate and atelectasis at the bases. Patient was also noted to be hypotensive while in the ER, attempts were made to place a right subclavian central line, however no success. Patient was eventually admitted, fluids were given, and possibility of sepsis was considered. Responded to 4 g of norepinephrine, and patient was diuresed overnight. Follow-up chest x-ray this morning showed atelectasis at the lung bases, and chronic infiltrates. Especially at the left lung base. Patient was switched to BiPAP, and he felt great with BiPAP. Presently on BiPAP with IPAP of 12 and EPAP of 6 FiO2 is down to 30%. ABG earlier today showed a pO2 of 64 pCO2 of 82 pH of 7.33. Renal profile showed a BUN of 55 and creatinine of 1.76. CBC was relatively normal, hemoglobin is 9.6. BNP level on admission was 1620, apparently patient developed more evidence of congestive heart failure upon initial presentation to the ICU as he was given more fluids to deal with his low blood pressure. Shortly after he arrived to the ICU, I cut down his IV fluid to KVO, and recommended Lasix, and switch the patient to BiPAP. For his low blood pressure recommended norepinephrine. Patient seems to be doing much better early this morning. And responding well to treatment. unhappy with his BiPAP, but seems to be quite comfortable on BiPAP. Reevaluated today on 03/01/2018, patient is doing better, off BiPAP, presently on nasal cannula, feels better breathing a lot easier. Chest x-ray is basically the same showing stable bilateral consolidation and possibly small pleural effusions with mild venous congestion. CBC showed WBC count of 14.3 hemoglobin of 10.0 electrolytes were noted to be improving, BUN is better 47 creatinine is better 1.30. Objective - Vital Signs Vital signs: Vital Signs Temp 98.4 F 03/01/18 08:00 Pulse 107 H 03/01/18 12:00 Resp 29 H 03/01/18 12:00 BP 103/61 03/01/18 12:00 Pulse Ox 93 L 03/01/18 12:00 Intake & Output 02/28/18 03/01/18 03/01/18 18:59 06:59 18:59 Intake Total 754.954 605.054 281.521 Output Total 2430 1285 425 Balance -1675.046 -679.946 -143.479 Weight 138.2 kg 138 kg 138 kg Intake: IV 310 420 120 Levofloxacin 750Mg-D5w 150 Pmx 750 mg In Dextrose/ Water 1 150ml.bag @ 100 mls/hr IVPB Q48H [facility] Rx#: [id number] Piperacillin-Tazobactam 3 50 50 .375 gm In Dextrose/Water 1 50ml.bag @ 12.5 mls/hr IVPB ONCE [facility] Rx#: [id number] Sodium Chloride 0.9% 1, 260 220 120 000 ml @ 20 mls/hr IV . Q24H [facility] Rx#:[id number] Intake, IV Titration 444.954 185.054 161.521 Amount Diltiazem 50 mg In Sodium 46.167 90.333 50 Chloride 0.9% 40 ml @ 10 MG/HR 10 mls/hr IV .Q5H [facility] Rx#:[id number] Insulin Regular 100 unit 152.376 94.721 111.521 In Sodium Chloride 0.9% 100 ml @ Per Protocol IV .Q0M [facility] Rx#:[id number] Magnesium Sulfate-D5w Pmx 200 1 gm In Dextrose/Water 1 100ml.bag @ 100 mls/hr IVPB Q1H [facility] Rx#: [id number] Norepinephrine 16 mg In 46.411 Sodium Chloride 0.9% 250 ml @ Titrate IV .Q0M [facility] Rx#:[id number] Output: Urine 2430 1285 425 Other: Voiding Method Indwelling Catheter Indwelling Catheter - Exam Physical Exam: Revealed a 68-year-old white male, obese, on nasal cannula, off BiPAP. Head: Atraumatic, normocephalic. HEENT:[ Short obese neck. Neck is supple.] [No neck masses.] [No thyromegaly.] [No JVD.] Mallampati class IV. Chest: [Crackles at the bases, some wheezing on forced expiratory maneuver noted..] Cardiac Exam: [Normal S1 and S2, no S3 gallop, no murmur.] Abdomen: [Soft, nontender, no megaly, no rebound, no guarding, normal bowel sounds.] Extremities: [No clubbing, 1+ bipedal edema, no cyanosis.] Neurological Exam: [No focal neurologic deficit.] Psychiatric: Normal mood affect and mental status examination. - Labs CBC & Chem 7: 03/01/18 04:30 03/01/18 04:30 Labs: Abnormal Lab Results - Last 24 Hours (Table) 02/28/18 02/28/18 02/28/18 Range/Units 04:45 14:13 15:01 WBC (3.8-10.6) k/uL RBC (4.30-5.90) m/uL Hgb (13.0-17.5) gm/dL Hct (39.0-53.0) % MCHC (31.0-37.0) g/dL RDW (11.5-15.5) % Neutrophils # (1.3-7.7) k/uL Lymphocytes # (1.0-4.8) k/uL Sodium (137-145) mmol/L Chloride (98-107) mmol/L Carbon Dioxide (22-30) mmol/L BUN (9-20) mg/dL Creatinine (0.66-1.25) mg/dL Glucose (74-99) mg/dL POC Glucose (mg/dL) 275 H 236 H (75-99) mg/dL Hemoglobin A1c 7.1 H (4.0-6.0) % Calcium (8.4-10.2) mg/dL Magnesium (1.6-2.3) mg/dL 02/28/18 02/28/18 02/28/18 Range/Units 17:01 18:02 20:36 WBC (3.8-10.6) k/uL RBC (4.30-5.90) m/uL Hgb (13.0-17.5) gm/dL Hct (39.0-53.0) % MCHC (31.0-37.0) g/dL RDW (11.5-15.5) % Neutrophils # (1.3-7.7) k/uL Lymphocytes # (1.0-4.8) k/uL Sodium (137-145) mmol/L Chloride (98-107) mmol/L Carbon Dioxide (22-30) mmol/L BUN (9-20) mg/dL Creatinine (0.66-1.25) mg/dL Glucose (74-99) mg/dL POC Glucose (mg/dL) 157 H 168 H 204 H (75-99) mg/dL Hemoglobin A1c (4.0-6.0) % Calcium (8.4-10.2) mg/dL Magnesium (1.6-2.3) mg/dL 02/28/18 02/28/18 02/28/18 Range/Units 20:54 22:42 23:36 WBC (3.8-10.6) k/uL RBC (4.30-5.90) m/uL Hgb (13.0-17.5) gm/dL Hct (39.0-53.0) % MCHC (31.0-37.0) g/dL RDW (11.5-15.5) % Neutrophils # (1.3-7.7) k/uL Lymphocytes # (1.0-4.8) k/uL Sodium (137-145) mmol/L Chloride (98-107) mmol/L Carbon Dioxide (22-30) mmol/L BUN (9-20) mg/dL Creatinine (0.66-1.25) mg/dL Glucose (74-99) mg/dL POC Glucose (mg/dL) 203 H 175 H 189 H (75-99) mg/dL Hemoglobin A1c (4.0-6.0) % Calcium (8.4-10.2) mg/dL Magnesium (1.6-2.3) mg/dL 03/01/18 03/01/18 03/01/18 Range/Units 01:10 02:03 03:05 WBC (3.8-10.6) k/uL RBC (4.30-5.90) m/uL Hgb (13.0-17.5) gm/dL Hct (39.0-53.0) % MCHC (31.0-37.0) g/dL RDW (11.5-15.5) % Neutrophils # (1.3-7.7) k/uL Lymphocytes # (1.0-4.8) k/uL Sodium (137-145) mmol/L Chloride (98-107) mmol/L Carbon Dioxide (22-30) mmol/L BUN (9-20) mg/dL Creatinine (0.66-1.25) mg/dL Glucose (74-99) mg/dL POC Glucose (mg/dL) 192 H 182 H 140 H (75-99) mg/dL Hemoglobin A1c (4.0-6.0) % Calcium (8.4-10.2) mg/dL Magnesium (1.6-2.3) mg/dL 03/01/18 03/01/18 03/01/18 Range/Units 04:12 04:30 04:30 WBC 14.3 H (3.8-10.6) k/uL RBC 3.47 L (4.30-5.90) m/uL Hgb 10.0 L (13.0-17.5) gm/dL Hct 32.3 L (39.0-53.0) % MCHC 30.8 L (31.0-37.0) g/dL RDW 17.4 H (11.5-15.5) % Neutrophils # 13.1 H (1.3-7.7) k/uL Lymphocytes # 0.7 L (1.0-4.8) k/uL Sodium 135 L (137-145) mmol/L Chloride 86 L (98-107) mmol/L Carbon Dioxide 40 H* (22-30) mmol/L BUN 47 H (9-20) mg/dL Creatinine 1.30 H (0.66-1.25) mg/dL Glucose 124 H (74-99) mg/dL POC Glucose (mg/dL) 127 H (75-99) mg/dL Hemoglobin A1c (4.0-6.0) % Calcium 7.9 L (8.4-10.2) mg/dL Magnesium 2.7 H (1.6-2.3) mg/dL 03/01/18 03/01/18 03/01/18 Range/Units 05:27 06:14 07:01 WBC (3.8-10.6) k/uL RBC (4.30-5.90) m/uL Hgb (13.0-17.5) gm/dL Hct (39.0-53.0) % MCHC (31.0-37.0) g/dL RDW (11.5-15.5) % Neutrophils # (1.3-7.7) k/uL Lymphocytes # (1.0-4.8) k/uL Sodium (137-145) mmol/L Chloride (98-107) mmol/L Carbon Dioxide (22-30) mmol/L BUN (9-20) mg/dL Creatinine (0.66-1.25) mg/dL Glucose (74-99) mg/dL POC Glucose (mg/dL) 175 H 174 H 184 H (75-99) mg/dL Hemoglobin A1c (4.0-6.0) % Calcium (8.4-10.2) mg/dL Magnesium (1.6-2.3) mg/dL 03/01/18 03/01/18 03/01/18 Range/Units 08:11 09:09 09:54 WBC (3.8-10.6) k/uL RBC (4.30-5.90) m/uL Hgb (13.0-17.5) gm/dL Hct (39.0-53.0) % MCHC (31.0-37.0) g/dL RDW (11.5-15.5) % Neutrophils # (1.3-7.7) k/uL Lymphocytes # (1.0-4.8) k/uL Sodium (137-145) mmol/L Chloride (98-107) mmol/L Carbon Dioxide (22-30) mmol/L BUN (9-20) mg/dL Creatinine (0.66-1.25) mg/dL Glucose (74-99) mg/dL POC Glucose (mg/dL) 219 H 319 H 333 H (75-99) mg/dL Hemoglobin A1c (4.0-6.0) % Calcium (8.4-10.2) mg/dL Magnesium (1.6-2.3) mg/dL 03/01/18 03/01/18 03/01/18 Range/Units 11:09 12:22 13:18 WBC (3.8-10.6) k/uL RBC (4.30-5.90) m/uL Hgb (13.0-17.5) gm/dL Hct (39.0-53.0) % MCHC (31.0-37.0) g/dL RDW (11.5-15.5) % Neutrophils # (1.3-7.7) k/uL Lymphocytes # (1.0-4.8) k/uL Sodium (137-145) mmol/L Chloride (98-107) mmol/L Carbon Dioxide (22-30) mmol/L BUN (9-20) mg/dL Creatinine (0.66-1.25) mg/dL Glucose (74-99) mg/dL POC Glucose (mg/dL) 255 H 149 H 225 H (75-99) mg/dL Hemoglobin A1c (4.0-6.0) % Calcium (8.4-10.2) mg/dL Magnesium (1.6-2.3) mg/dL Microbiology - Last 24 Hours (Table) 02/28/18 12:10 Gram Stain - Preliminary Sputum 02/28/18 00:12 Blood Culture - Preliminary Blood No Growth after 24 hours 02/28/18 03:50 Urine Culture - Preliminary Urine,Catheterized Assessment and Plan Assessment: Impression: 1 acute on chronic hypoxic respiratory failure and hypercapnic respiratory failure secondary to COPD, congestive heart failure, and possible component of hospital-acquired pneumonia. 2 hypotension, multifactorial secondary to sepsis, and cardiogenic in nature since the patient is known to have severe LV dysfunction, and previous episodes of cardiogenic shock. Septic shock is felt to be less likely. 3 acute on chronic kidney injury, known to have history of chronic kidney disease stage II. 4 paroxysmal atrial fibrillation, presently on Cardizem. Being followed by cardiology. 5 severe pulmonary hypertension mostly cardiac in nature. 6 chronic diastolic congestive heart failure 7 severe COPD 8 multiple comorbidities including restless leg syndrome, type 2 diabetes, chronic pain syndrome, multiple admissions and readmissions to the hospital including [facility] and [facility]. Recommendation: Continue present supportive care measures and treatment plan, patient is now on nasal cannula, may require BiPAP intermittently, continue antibiotics, bronchodilators, diuretics, could be transferred out of the ICU to selective/monitor bed. Continue to follow. Time with Patient: Less than 30
[2018-03-01 14:02] LABS: Glucose,Whole Blood 204 mg/dL (75-99)
[2018-03-01 15:19] LABS: Glucose,Whole Blood 272 mg/dL (75-99)
[2018-03-01 17:08] LABS: Glucose,Whole Blood 145 mg/dL (75-99)
[2018-03-01] MEDS: RIVAROXABAN 20 MG TAB PO SCH (17:40)
[2018-03-01] MEDS ORDERED: INSULIN DETEMIR 100 UNIT/ML 10 ML VIAL SQ SCH ×2 (21:00→21:45)
[2018-03-01 21:12] LABS: Glucose,Whole Blood 345 mg/dL (75-99)
[2018-03-01] MEDS ORDERED: INSULIN ASPART 100 UNIT/ML 1 ML 10 ML VIAL SQ ONE (21:43)
[2018-03-01] MEDS: ATORVASTATIN 20 MG TAB PO SCH (22:14)
[2018-03-01] MEDS: LEVOFLOXACIN 750MG-D5W PMX 750 MG in DEXTROSE/WATER 1 150ML.BAG IVPB SCH (22:15)
[2018-03-02] MEDS: SODIUM CHLORIDE 0.9% 1,000 ML IV SCH (04:39)
[2018-03-02] MEDS: DILTIAZEM 50 MG in SODIUM CHLORIDE 0.9% 40 ML IV SCH ×2 (04:40→08:23)
[2018-03-02 06:10] LABS: Glucose,Whole Blood 217 mg/dL (75-99)
[2018-03-02 06:21] LABS: Anisocytosis Slight; Basophils % (A) 0 %; Eosinophils % (A) 0 %; HCT 32.9 % (39.0-53.0); Hypochromasia Slight; Lymphocytes # (A) 0.7 k/uL (1.0-4.8); Lymphocytes % (A) 5 %; MCH 28.1 pg (25.0-35.0); MCHC 30.5 g/dL (31.0-37.0); MCV 92.1 fL (80.0-100.0); Monocytes # (A) 0.4 k/uL (0-1.0); Monocytes % (A) 3 %; Neutrophils # (A) 13.9 k/uL (1.3-7.7); Neutrophils % (A) 92 %; Platelet Count 275 k/uL (150-450); RBC 3.57 m/uL (4.30-5.90); RDW 17.4 % (11.5-15.5); WBC 15.1 k/uL (3.8-10.6)
[2018-03-02] MEDS: methylPREDNISolone SOD SUCCI 125 MG/2 ML VIAL IV SCH ×2 (06:23→12:33)
[2018-03-02] MEDS: PANTOPRAZOLE 40 MG TABLET PO SCH (06:24)
[2018-03-02 06:31] LABS: Calcium 8.7 mg/dL (8.4-10.2); Magnesium 2.5 mg/dL (1.6-2.3); Phosphorus 4.8 mg/dL (2.5-4.5); Potassium 4.6 mmol/L (3.5-5.1)
[2018-03-02] MEDS: INSULIN ASPART 100 UNIT/ML 1 ML 10 ML VIAL SQ SCH ×5 (07:02→17:03)
[2018-03-02] MEDS ORDERED: metFORMIN 500 MG TAB PO SCH (07:30)
[2018-03-02] MEDS: BUDESONIDE 1 MG/2 ML NEBU INHALATION SCH ×2 (07:31→20:51)
[2018-03-02] MEDS: IPRATROPIUM-ALBUTEROL 3 ML NEB INHALATION SCH ×4 (07:31→20:51)
[2018-03-02] MEDS: PREGABALIN 75 MG CAP PO SCH ×2 (08:22→20:27)
[2018-03-02] MEDS: TAMSULOSIN 0.4 MG CAP.ER.24H PO SCH (08:23)
[2018-03-02] MEDS: METOPROLOL TARTRATE 12.5 MG TAB PO SCH ×2 (08:23→19:48)
[2018-03-02] MEDS: guaiFENesin 600 MG TABLET.ER PO SCH ×2 (08:23→19:48)
[2018-03-02] MEDS: PIPERACILLIN-TAZOBACTAM 3.375 GM in DEXTROSE/WATER 1 50ML.BAG IVPB SCH ×3 (08:23→23:25)
[2018-03-02] MEDS: NYSTATIN 100,000UNIT/GM CREAM 30 GM TUBE TOPICAL SCH ×2 (08:28→19:54)
[2018-03-02] MEDS: TRIAMCINOLONE ACET 0.5% CREAM 15 GM TUBE TOPICAL SCH ×2 (08:28→20:23)
--- NOTE | 2018-03-02 11:15 | P.PN ---
Subjective Progress Note Date: 03/02/18 Principal diagnosis: Acute on chronic hypoxic and hypercapnic respiratory failure secondary to COPD and congestive heart failure This is a 68-year-old white male with recent admission to the hospital for acute on chronic hypoxic and hypercapnic respiratory failure, known to have severe COPD, patient was recently discharged to [facility], and he was undergoing rehab. Patient is known to have severe pulmonary hypertension, paroxysmal atrial fibrillation, diastolic congestive heart failure, type 2 diabetes, chronic kidney disease stage II, and at one point he received transient hemodialysis. At any rate patient was [facility] complaining of increased shortness of breath, low-grade fever, and cough. Chest x-ray showed chronic infiltrate and atelectasis at the bases. Patient was also noted to be hypotensive while in the ER, attempts were made to place a right subclavian central line, however no success. Patient was eventually admitted, fluids were given, and possibility of sepsis was considered. Responded to 4 g of norepinephrine, and patient was diuresed overnight. Follow-up chest x-ray this morning showed atelectasis at the lung bases, and chronic infiltrates. Especially at the left lung base. Patient was switched to BiPAP, and he felt great with BiPAP. Presently on BiPAP with IPAP of 12 and EPAP of 6 FiO2 is down to 30%. ABG earlier today showed a pO2 of 64 pCO2 of 82 pH of 7.33. Renal profile showed a BUN of 55 and creatinine of 1.76. CBC was relatively normal, hemoglobin is 9.6. BNP level on admission was 1620, apparently patient developed more evidence of congestive heart failure upon initial presentation to the ICU as he was given more fluids to deal with his low blood pressure. Shortly after he arrived to the ICU, I cut down his IV fluid to KVO, and recommended Lasix, and switch the patient to BiPAP. For his low blood pressure recommended norepinephrine. Patient seems to be doing much better early this morning. And responding well to treatment. unhappy with his BiPAP, but seems to be quite comfortable on BiPAP. Reevaluated today on 03/01/2018, patient is doing better, off BiPAP, presently on nasal cannula, feels better breathing a lot easier. Chest x-ray is basically the same showing stable bilateral consolidation and possibly small pleural effusions with mild venous congestion. CBC showed WBC count of 14.3 hemoglobin of 10.0 electrolytes were noted to be improving, BUN is better 47 creatinine is better 1.30. The patient is seen again today 03/02/2018 in follow-up on the selective care unit. He is currently sitting up in a chair at the bedside. He is awake and alert in no acute distress. He denies any worsening shortness of breath, cough or congestion. He is maintaining O2 saturations in the 90s on 2 L/m per nasal cannula. He's been afebrile. Sputum, urine, blood cultures reveal no growth. White count 15.1. Hemoglobin 10.0. Creatinine 1.31. Objective - Vital Signs Vital signs: Vital Signs Temp 96.9 F L 03/02/18 08:00 Pulse 102 H 03/02/18 08:00 Resp 20 03/02/18 08:00 BP 115/63 03/02/18 08:00 Pulse Ox 93 L 03/02/18 03:38 Intake & Output 03/01/18 03/02/18 03/02/18 18:59 06:59 18:59 Intake Total 610.306 356.834 440 Output Total 770 350 Balance -159.694 6.834 440 Weight 138 kg 137.8 kg Intake: IV 180 250 200 Diltiazem 50 mg In Sodium 50 40 Chloride 0.9% 40 ml @ 10 MG/HR 10 mls/hr IV .Q5H [facility] Rx#:[id number] Levofloxacin 750Mg-D5w 200 Pmx 750 mg In Dextrose/ Water 1 150ml.bag @ 100 mls/hr IVPB HS [facility] Rx#: [id number] Sodium Chloride 0.9% 1, 180 160 000 ml @ 20 mls/hr IV . Q24H [facility] Rx#:[id number] Intake, IV Titration 190.306 106.834 Amount Diltiazem 50 mg In Sodium 50 106.834 Chloride 0.9% 40 ml @ 10 MG/HR 10 mls/hr IV .Q5H [facility] Rx#:[id number] Insulin Regular 100 unit 140.306 In Sodium Chloride 0.9% 100 ml @ Per Protocol IV .Q0M [facility] Rx#:[id number] Oral 240 240 Output: Urine 770 350 Other: Voiding Method Urinal Urinal Urinal # Voids 1 - Exam GENERAL EXAM: Alert, active, comfortable in no apparent distress. HEAD: Normocephalic. EYES: Normal reaction of pupils, equal size. NOSE: Clear with pink turbinates. THROAT: No erythema or exudates. NECK: No masses, no JVD. CHEST: No chest wall deformity. LUNGS: Equal air entry with crackles in the posterior bases. Diminished. CVS: S1 and S2 normal with no audible murmur, regular rhythm. ABDOMEN: No hepatosplenomegaly, normal bowel sounds, no guarding or rigidity. SPINE: No scoliosis or deformity SKIN: No rashes CENTRAL NERVOUS SYSTEM: No focal deficits, tone is normal in all 4 extremities. EXTREMITIES: There is no peripheral edema. No clubbing, no cyanosis. Peripheral pulses are intact. - Labs CBC & Chem 7: 03/02/18 05:35 03/02/18 05:35 Labs: Abnormal Lab Results - Last 24 Hours (Table) 03/01/18 03/01/18 03/01/18 Range/Units 11:09 12:22 13:18 WBC (3.8-10.6) k/uL RBC (4.30-5.90) m/uL Hgb (13.0-17.5) gm/dL Hct (39.0-53.0) % MCHC (31.0-37.0) g/dL RDW (11.5-15.5) % Neutrophils # (1.3-7.7) k/uL Lymphocytes # (1.0-4.8) k/uL Sodium (137-145) mmol/L Chloride (98-107) mmol/L Carbon Dioxide (22-30) mmol/L BUN (9-20) mg/dL Creatinine (0.66-1.25) mg/dL Glucose (74-99) mg/dL POC Glucose (mg/dL) 255 H 149 H 225 H (75-99) mg/dL Phosphorus (2.5-4.5) mg/dL Magnesium (1.6-2.3) mg/dL 03/01/18 03/01/18 03/01/18 Range/Units 14:00 15:16 16:36 WBC (3.8-10.6) k/uL RBC (4.30-5.90) m/uL Hgb (13.0-17.5) gm/dL Hct (39.0-53.0) % MCHC (31.0-37.0) g/dL RDW (11.5-15.5) % Neutrophils # (1.3-7.7) k/uL Lymphocytes # (1.0-4.8) k/uL Sodium (137-145) mmol/L Chloride (98-107) mmol/L Carbon Dioxide (22-30) mmol/L BUN (9-20) mg/dL Creatinine (0.66-1.25) mg/dL Glucose (74-99) mg/dL POC Glucose (mg/dL) 204 H 272 H 145 H (75-99) mg/dL Phosphorus (2.5-4.5) mg/dL Magnesium (1.6-2.3) mg/dL 03/01/18 03/02/18 03/02/18 Range/Units 21:10 05:35 05:35 WBC 15.1 H (3.8-10.6) k/uL RBC 3.57 L (4.30-5.90) m/uL Hgb 10.0 L (13.0-17.5) gm/dL Hct 32.9 L (39.0-53.0) % MCHC 30.5 L (31.0-37.0) g/dL RDW 17.4 H (11.5-15.5) % Neutrophils # 13.9 H (1.3-7.7) k/uL Lymphocytes # 0.7 L (1.0-4.8) k/uL Sodium 133 L (137-145) mmol/L Chloride 87 L (98-107) mmol/L Carbon Dioxide 36 H (22-30) mmol/L BUN 51 H (9-20) mg/dL Creatinine 1.31 H (0.66-1.25) mg/dL Glucose 187 H (74-99) mg/dL POC Glucose (mg/dL) 345 H (75-99) mg/dL Phosphorus 4.8 H (2.5-4.5) mg/dL Magnesium 2.5 H (1.6-2.3) mg/dL 03/02/18 Range/Units 06:09 WBC (3.8-10.6) k/uL RBC (4.30-5.90) m/uL Hgb (13.0-17.5) gm/dL Hct (39.0-53.0) % MCHC (31.0-37.0) g/dL RDW (11.5-15.5) % Neutrophils # (1.3-7.7) k/uL Lymphocytes # (1.0-4.8) k/uL Sodium (137-145) mmol/L Chloride (98-107) mmol/L Carbon Dioxide (22-30) mmol/L BUN (9-20) mg/dL Creatinine (0.66-1.25) mg/dL Glucose (74-99) mg/dL POC Glucose (mg/dL) 217 H (75-99) mg/dL Phosphorus (2.5-4.5) mg/dL Magnesium (1.6-2.3) mg/dL Microbiology - Last 24 Hours (Table) 02/28/18 12:10 Gram Stain - Final Sputum Sputum Culture - Final 02/28/18 00:12 Blood Culture - Preliminary Blood No Growth after 48 hours 02/28/18 03:50 Urine Culture - Final Urine,Catheterized Assessment and Plan Assessment: Impression: 1 acute on chronic hypoxic respiratory failure and hypercapnic respiratory failure secondary to COPD, congestive heart failure, and possible component of hospital-acquired pneumonia. 2 hypotension, multifactorial secondary to sepsis, and cardiogenic in nature since the patient is known to have severe LV dysfunction, and previous episodes of cardiogenic shock. Septic shock is felt to be less likely. 3 acute on chronic kidney injury, known to have history of chronic kidney disease stage II. 4 paroxysmal atrial fibrillation, presently on Cardizem. Being followed by cardiology. Antegrade regulated with Xarelto. 5 severe pulmonary hypertension mostly cardiac in nature. 6 chronic diastolic congestive heart failure 7 severe COPD 8 multiple comorbidities including restless leg syndrome, type 2 diabetes, chronic pain syndrome, multiple admissions and readmissions to the hospital including [facility] and [facility]. Recommendation: The patient was seen and evaluated by Dr. Olea. Chest x-ray and labs were reviewed. He is continued on echo dilated, IV Solu-Medrol, antibiotics in the form of Zosyn and Levaquin. He is continued on a Cardizem drip at 10 mg an hour. We will continue to follow and make further recommendations based on his clinical status. I, the cosigning physician, performed a history & physical examination of the patient. Lungs sounds with few scattered rhonchi, crackles in posterior bases, diminished. Maintaining good O2 saturations in the 90s on 2 L/m per nasal cannula. I discussed the assessment and plan of care with my nurse practitioner , Peyton Watts. I attest to the above note as dictated by her.
[2018-03-02 11:46] LABS: Glucose,Whole Blood 353 mg/dL (75-99)
[2018-03-02] MEDS ORDERED: ERGOCALCIFEROL 50,000 UNIT CAP PO SCH (12:00)
[2018-03-02] MEDS ORDERED: FERROUS SULFATE 325 MG TAB PO SCH (12:00)
--- NOTE | 2018-03-02 12:18 | XR ---
EXAMINATION TYPE: XR chest 1V DATE OF EXAM: 03/02/2018 COMPARISON: 03/01/2018 HISTORY: 68 year-old male shortness of breath, difficulty breathing TECHNIQUE: Single frontal view of the chest is obtained. FINDINGS: Median sternotomy wires are present. Redemonstrated moderate cardiomegaly. Hazy bibasilar densities a re noted. Mild diffuse interstitial prominence. IMPRESSION: Continued moderate cardiomegaly with bibasilar opacities and interstitial prominence. Correlate for m ild CHF with underlying pleural effusions and adjacent consolidation/atelectasis.
[2018-03-02] MEDS ORDERED: INSULIN ASPART 100 UNIT/ML 1 ML 10 ML VIAL SQ ONE (12:49)
[2018-03-02] MEDS: METOPROLOL TARTRATE 25 MG TAB PO SCH ×3 (13:08→20:28)
--- NOTE | 2018-03-02 13:14 | P.PN ---
Subjective Progress Note Date: 03/02/18 67-year-old male one of Dr. Dsouza's patient who seen in 02/12/2018 for acute on chronic hypercapnic and hypoxemic respiratory failure, advanced COPD with acute metabolic encephalopathy of unclear etiology possibly related to hypoxemia and hypercapnia, possible TIA. he currently is in [facility] for subacute rehabilitation,. Medications newly started on discharge was Flomax metoprolol melatonin and insulin NovoLog scale along with maintenance medications, otherwise patient is at baseline medication. He has severe pulmonary hypertension, known paroxysmal atrial fibrillation, now long- term anticoagulation, chronic diastolic CHF, restless leg, diabetes mellitus type 2, CK D stage II with recent acute kidney injury from over diuresing at [facility] 01/17/2018. He had transient use of hemodialysis followed by Dr. Nelson no currently not on any hemodialysis program. No mention of urinary retention, patient was not placed on a Mcgill catheter prior to his last discharge from our facility. He presents to the emergency room secondary to fever of 102, yellowish brown productive cough, shortness of breath increasing cough, and worsening dyspnea. He chronically has some leg swelling bilaterally, no calf pain, no calf tenderness, no chest pain, he is He was subsequently transferred to ICU secondary to hypotension . His WBC count ER was 12.2, creatinine of 1.7 BUN of 57, CO2 of 40, chest x-ray shows chronic infiltrate and atelectasis, no definite CHF, he is proBNP is 1620, urinalysis is normal troponin is 0.014. 03/01: Patient is followed by pulmonary medicine, Dr. Olea and cardiology. Heart rate is in the low 100s, respiratory rate in the 20s, pulse ox 93% on 4 L. Patient was on BiPAP during the night. He remains on Cardizem drip. The Levophed is off. Patient has been afebrile since admission. Blood sugars are running 174-333. Patient will be transitioned off the insulin drip, Levemir increased to 15 units at bedtime, NovoLog scale scheduled for units with meals and scale. White count is up to 14.3, hemoglobin is stable at 10. Renal function is improved with BUN 47 and creatinine 1.3. Blood culture showing no growth after 24 hours. Urine culture and sputum culture in progress. Patient states he has less cough and less productive cough today. He states he needs to have a bowel movement but can not use a bedpan. Nursing will make arrangements. Patient is to be transferred selective care today. 03/02. Patient is breathing comfortably but still requiring 4 L of oxygen. He is having phlegm with cough production. Denies any shortness of breath. Patient glucose continues to range in the 187- 350. Levemir increased to 20 at bedtime, NovoLog increased to 10 units with meals with sliding scale. Continue Cardizem drip. Bumex initiated at 1 mg by mouth twice a day Objective - Vital Signs Vital signs: Vital Signs Temp 98.0 F 03/02/18 11:39 Pulse 84 03/02/18 11:39 Resp 18 03/02/18 11:39 BP 113/65 03/02/18 11:39 Pulse Ox 95 03/02/18 11:39 Intake & Output 03/01/18 03/02/18 03/02/18 18:59 06:59 18:59 Intake Total 610.306 356.834 440 Output Total 770 350 Balance -159.694 6.834 440 Weight 138 kg 137.8 kg Intake: IV 180 250 200 Diltiazem 50 mg In Sodium 50 40 Chloride 0.9% 40 ml @ 10 MG/HR 10 mls/hr IV .Q5H RODRIGUEZ Rx#:[id number] Levofloxacin 750Mg-D5w 200 Pmx 750 mg In Dextrose/ Water 1 150ml.bag @ 100 mls/hr IVPB HS RODRIGUEZ Rx#: [id number] Sodium Chloride 0.9% 1, 180 160 000 ml @ 20 mls/hr IV . Q24H RODRIGUEZ Rx#:[id number] Intake, IV Titration 190.306 106.834 Amount Diltiazem 50 mg In Sodium 50 106.834 Chloride 0.9% 40 ml @ 10 MG/HR 10 mls/hr IV .Q5H RODRIGUEZ Rx#:[id number] Insulin Regular 100 unit 140.306 In Sodium Chloride 0.9% 100 ml @ Per Protocol IV .Q0M RODRIGUEZ Rx#:[id number] Oral 240 240 Output: Urine 770 350 Other: Voiding Method Urinal Urinal Urinal # Voids 1 - Exam - Constitutional General appearance: cooperative, no acute distress, obese - EENT Eyes: anicteric sclerae, PERRLA, normal appearance ENT: hearing grossly normal - Neck Neck: no lymphadenopathy, normal ROM, no other, no rigidity, no stridor, no thyromegaly - Respiratory Respiratory: bilateral: Decreased air entry at the bases with rhonchi posterior lungs - Cardiovascular Rhythm: regular Heart sounds: normal: S1, S2 Abnormal Heart Sounds: no systolic murmur, no diastolic murmur, no rub, no S3 Gallop, no S4 Gallop, no click, no other - Gastrointestinal General gastrointestinal: normal bowel sounds, soft - Integumentary Integumentary: no rash - Neurologic Neurologic: CNII-XII intact - Musculoskeletal Musculoskeletal: gait normal, strength equal bilaterally - Psychiatric Psychiatric: A&O x's 3, appropriate affect - Labs CBC & Chem 7: 03/02/18 05:35 03/02/18 05:35 Labs: Abnormal Lab Results - Last 24 Hours (Table) 03/01/18 03/01/18 03/01/18 Range/Units 13:18 14:00 15:16 WBC (3.8-10.6) k/uL RBC (4.30-5.90) m/uL Hgb (13.0-17.5) gm/dL Hct (39.0-53.0) % MCHC (31.0-37.0) g/dL RDW (11.5-15.5) % Neutrophils # (1.3-7.7) k/uL Lymphocytes # (1.0-4.8) k/uL Sodium (137-145) mmol/L Chloride (98-107) mmol/L Carbon Dioxide (22-30) mmol/L BUN (9-20) mg/dL Creatinine (0.66-1.25) mg/dL Glucose (74-99) mg/dL POC Glucose (mg/dL) 225 H 204 H 272 H (75-99) mg/dL Phosphorus (2.5-4.5) mg/dL Magnesium (1.6-2.3) mg/dL 03/01/18 03/01/18 03/02/18 Range/Units 16:36 21:10 05:35 WBC 15.1 H (3.8-10.6) k/uL RBC 3.57 L (4.30-5.90) m/uL Hgb 10.0 L (13.0-17.5) gm/dL Hct 32.9 L (39.0-53.0) % MCHC 30.5 L (31.0-37.0) g/dL RDW 17.4 H (11.5-15.5) % Neutrophils # 13.9 H (1.3-7.7) k/uL Lymphocytes # 0.7 L (1.0-4.8) k/uL Sodium (137-145) mmol/L Chloride (98-107) mmol/L Carbon Dioxide (22-30) mmol/L BUN (9-20) mg/dL Creatinine (0.66-1.25) mg/dL Glucose (74-99) mg/dL POC Glucose (mg/dL) 145 H 345 H (75-99) mg/dL Phosphorus (2.5-4.5) mg/dL Magnesium (1.6-2.3) mg/dL 03/02/18 03/02/18 03/02/18 Range/Units 05:35 06:09 11:42 WBC (3.8-10.6) k/uL RBC (4.30-5.90) m/uL Hgb (13.0-17.5) gm/dL Hct (39.0-53.0) % MCHC (31.0-37.0) g/dL RDW (11.5-15.5) % Neutrophils # (1.3-7.7) k/uL Lymphocytes # (1.0-4.8) k/uL Sodium 133 L (137-145) mmol/L Chloride 87 L (98-107) mmol/L Carbon Dioxide 36 H (22-30) mmol/L BUN 51 H (9-20) mg/dL Creatinine 1.31 H (0.66-1.25) mg/dL Glucose 187 H (74-99) mg/dL POC Glucose (mg/dL) 217 H 353 H (75-99) mg/dL Phosphorus 4.8 H (2.5-4.5) mg/dL Magnesium 2.5 H (1.6-2.3) mg/dL Microbiology - Last 24 Hours (Table) 02/28/18 12:10 Gram Stain - Final Sputum Sputum Culture - Final 02/28/18 00:12 Blood Culture - Preliminary Blood No Growth after 48 hours 02/28/18 03:50 Urine Culture - Final Urine,Catheterized Assessment and Plan Plan: 1. Sepsis with SIRS, pulmonary is most likely the source, has increasing productive purulent cough, and fever, continue Zosyn and Levaquin for gram- negative pneumonia, sputum and blood cultures to be obtained, pulmonary is following, Solu-Medrol 60 every 6 IV 2. Hypotension suspect septic shock, patient received vasopressors transiently , resolved cardiology is on consult secondary to tachycardia, continue IV antibiotics 3. Acute on chronic hypercapnic and hypoxic respiratory failure. Consult with Dr. Olea appreciated. Continue O2 therapy, albuterol nebulizer every 4 hours as needed, Pulmicort 1 mg twice daily. 4. Acute kidney injury with chronic kidney disease stage II secondary to ATN from hypotension and sepsis, during his last admission he had recent acute kidney injury from aggressive diuresing. 5. Paroxysmal Atrial fibrillation with rapid ventricular response. Cardiology consult. Started on IV Cardizem drip. Lopressor dosing to be determined by child specialist with IV Cardizem on board Xarelto has been resumed. 6. Pulmonary hypertension: Patient follows with pulmonary and cardiology. Continue Bumex, hold for parameters, continue valsartan continue metolazone 2.5 Sunday 7. Chronic diastolic heart failure. Initiated back on Bumex 1 mg twice daily, hold Aldactone 25 mg twice daily, on metoprolol 12.5 mg twice a day T. Cardiology consult appreciated. 8. Restless leg syndrome: Remain on Requip 1.5 g daily at bedtime. 9. Hyperlipidemia: Has been on simvastatin 40 mg daily at bedtime. 10. Diabetes: Type II has been on insulin and metformin, Continue Levemir 10 units at bedtime and Accu-Chek with sliding scales coverage. 11. Chronic pain syndrome: Has been on Lyrica, Robaxin and scheduled oxycodone. 12. Advance COPD: Patient has been on Bumex, Pulmicort Ventolin. Continue O2 as well. 13. DVT prophylaxis: Patient has been on anticoagulation. 14. GI prophylaxis: Patient will be on pantoprazole 40 mg daily. CODE STATUS: Full code.
--- NOTE | 2018-03-02 14:09 | PN ---
PROGRESS NOTE This patient is admitted with the symptoms of shortness of breath, atrial fibrillation with RVR. The patient is feeling better. His breathing is improved. Patient also has a moderate degree of COPD. The patient is currently getting Cardizem drip. The patient's heart rate now is in the range of 100 to 110. We will increase the dose of Lopressor to 25 mg q.i.d. and discontinue the Cardizem drip. Patient's chest x-ray is still suggestive of mild congestive cardiac failure and we will continue the patient on IV Lasix. MMSOHAILL / IJN: [id number] /
[2018-03-02 16:19] LABS: Glucose,Whole Blood 282 mg/dL (75-99)
[2018-03-02] MEDS ORDERED: INSULIN REGULAR BOLUS (FROM DRIP BAG) IV ONE (16:34)
[2018-03-02] MEDS ORDERED: INSULIN REGULAR 100 UNIT in SODIUM CHLORIDE 0.9% 100 ML IV SCH (16:45)
[2018-03-02] MEDS: methylPREDNISolone SOD SUCCI 40 MG/ML 1 ML VIAL IV SCH ×2 (17:02→23:25)
[2018-03-02] MEDS: RIVAROXABAN 20 MG TAB PO SCH (17:02)
[2018-03-02] MEDS: BUMETANIDE 1 MG TAB PO SCH (17:02)
[2018-03-02] MEDS: metFORMIN 500 MG TAB PO SCH (17:02)
[2018-03-02] MEDS ORDERED: INSULIN ASPART 100 UNIT/ML 1 ML 10 ML VIAL SQ SCH (17:30)
[2018-03-02 17:48] LABS: Glucose,Whole Blood 226 mg/dL (75-99)
[2018-03-02 18:20] LABS: Glucose,Whole Blood 271 mg/dL (75-99)
[2018-03-02 19:21] LABS: Glucose,Whole Blood 195 mg/dL (75-99)
[2018-03-02] MEDS: LEVOFLOXACIN 750MG-D5W PMX 750 MG in DEXTROSE/WATER 1 150ML.BAG IVPB SCH (19:48)
[2018-03-02] MEDS: ATORVASTATIN 20 MG TAB PO SCH (19:49)
[2018-03-02 21:22] LABS: Glucose,Whole Blood 174 mg/dL (75-99)
[2018-03-02 23:38] LABS: Glucose,Whole Blood 112 mg/dL (75-99)
[2018-03-03 00:24] LABS: Glucose,Whole Blood 223 mg/dL (75-99)
[2018-03-03 02:29] LABS: Glucose,Whole Blood 113 mg/dL (75-99)
[2018-03-03 03:33] LABS: Glucose,Whole Blood 144 mg/dL (75-99)
[2018-03-03] MEDS: SODIUM CHLORIDE 0.9% 1,000 ML IV SCH (05:26)
[2018-03-03 05:32] LABS: Glucose,Whole Blood 200 mg/dL (75-99)
[2018-03-03] MEDS: metFORMIN 500 MG TAB PO SCH ×2 (06:10→17:06)
[2018-03-03] MEDS: methylPREDNISolone SOD SUCCI 40 MG/ML 1 ML VIAL IV SCH (06:10)
[2018-03-03] MEDS: PANTOPRAZOLE 40 MG TABLET PO SCH (06:11)
[2018-03-03 06:42] LABS: Anisocytosis Slight; Basophils % (A) 0 %; Eosinophils % (A) 0 %; HCT 32.4 % (39.0-53.0); HGB 10.2 gm/dL (13.0-17.5); Hypochromasia Slight; Lymphocytes # (A) 0.8 k/uL (1.0-4.8); Lymphocytes % (A) 6 %; MCH 28.9 pg (25.0-35.0); MCHC 31.5 g/dL (31.0-37.0); MCV 91.7 fL (80.0-100.0); Mean Platelet Volume 7.2; Monocytes # (A) 0.5 k/uL (0-1.0); Monocytes % (A) 4 %; Neutrophils % (A) 90 %; Platelet Count 259 k/uL (150-450); RBC 3.53 m/uL (4.30-5.90); RDW 17.1 % (11.5-15.5); WBC 13.3 k/uL (3.8-10.6)
[2018-03-03 07:01] LABS: Calcium 8.9 mg/dL (8.4-10.2); Magnesium 2.5 mg/dL (1.6-2.3); Phosphorus 5.3 mg/dL (2.5-4.5); Potassium 4.7 mmol/L (3.5-5.1)
[2018-03-03] MEDS: TRIAMCINOLONE ACET 0.5% CREAM 15 GM TUBE TOPICAL SCH ×2 (07:27→20:22)
[2018-03-03] MEDS: NYSTATIN 100,000UNIT/GM CREAM 30 GM TUBE TOPICAL SCH ×2 (07:27→20:21)
[2018-03-03 07:32] LABS: Glucose,Whole Blood 149 mg/dL (75-99)
[2018-03-03] MEDS: TAMSULOSIN 0.4 MG CAP.ER.24H PO SCH (07:40)
[2018-03-03] MEDS: guaiFENesin 600 MG TABLET.ER PO SCH ×2 (07:40→20:33)
[2018-03-03] MEDS: INSULIN ASPART 100 UNIT/ML 1 ML 10 ML VIAL SQ SCH ×5 (07:40→21:12)
[2018-03-03] MEDS: BUMETANIDE 1 MG TAB PO SCH ×2 (07:40→17:07)
[2018-03-03] MEDS: METOPROLOL TARTRATE 25 MG TAB PO SCH ×4 (07:40→20:34)
[2018-03-03] MEDS: PREGABALIN 75 MG CAP PO SCH ×2 (07:40→21:07)
[2018-03-03] MEDS: PIPERACILLIN-TAZOBACTAM 3.375 GM in DEXTROSE/WATER 1 50ML.BAG IVPB SCH ×2 (07:57→15:01)
[2018-03-03] MEDS: IPRATROPIUM-ALBUTEROL 3 ML NEB INHALATION SCH ×4 (08:17→19:53)
[2018-03-03] MEDS: BUDESONIDE 1 MG/2 ML NEBU INHALATION SCH ×2 (08:17→19:53)
--- NOTE | 2018-03-03 08:40 | P.PN ---
Subjective Progress Note Date: 03/03/18 67-year-old male one of Dr. Dsouza's patient who seen in 02/12/2018 for acute on chronic hypercapnic and hypoxemic respiratory failure, advanced COPD with acute metabolic encephalopathy of unclear etiology possibly related to hypoxemia and hypercapnia, possible TIA. he currently is in [facility] for subacute rehabilitation,. Medications newly started on discharge was Flomax metoprolol melatonin and insulin NovoLog scale along with maintenance medications, otherwise patient is at baseline medication. He has severe pulmonary hypertension, known paroxysmal atrial fibrillation, now long- term anticoagulation, chronic diastolic CHF, restless leg, diabetes mellitus type 2, CK D stage II with recent acute kidney injury from over diuresing at [facility] 01/17/2018. He had transient use of hemodialysis followed by Dr. Nelson no currently not on any hemodialysis program. No mention of urinary retention, patient was not placed on a Mcgill catheter prior to his last discharge from our facility. He presents to the emergency room secondary to fever of 102, yellowish brown productive cough, shortness of breath increasing cough, and worsening dyspnea. He chronically has some leg swelling bilaterally, no calf pain, no calf tenderness, no chest pain, he is He was subsequently transferred to ICU secondary to hypotension . His WBC count ER was 12.2, creatinine of 1.7 BUN of 57, CO2 of 40, chest x-ray shows chronic infiltrate and atelectasis, no definite CHF, he is proBNP is 1620, urinalysis is normal troponin is 0.014. 03/01: Patient is followed by pulmonary medicine, Dr. Olea and cardiology. Heart rate is in the low 100s, respiratory rate in the 20s, pulse ox 93% on 4 L. Patient was on BiPAP during the night. He remains on Cardizem drip. The Levophed is off. Patient has been afebrile since admission. Blood sugars are running 174-333. Patient will be transitioned off the insulin drip, Levemir increased to 15 units at bedtime, NovoLog scale scheduled for units with meals and scale. White count is up to 14.3, hemoglobin is stable at 10. Renal function is improved with BUN 47 and creatinine 1.3. Blood culture showing no growth after 24 hours. Urine culture and sputum culture in progress. Patient states he has less cough and less productive cough today. He states he needs to have a bowel movement but can not use a bedpan. Nursing will make arrangements. Patient is to be transferred selective care today. 03/02. Patient is breathing comfortably but still requiring 4 L of oxygen. He is having phlegm with cough production. Denies any shortness of breath. Patient glucose continues to range in the 187- 350. Levemir increased to 20 at bedtime, NovoLog increased to 10 units with meals with sliding scale. Continue Cardizem drip. Bumex initiated at 1 mg by mouth twice a day 03/03 patient doing well. Saturating 95% on 4 L. Solu-Medrol IV switched to by mouth prednisone 60 mg. Insulin drip can be's turnoff once patient glucose improved on oral steroids. Walking pulse ox to be done today. Blood pressure on the lower side. Continue to monitor. Metoprolol increased to 25 4 times a day Objective - Vital Signs Vital signs: Vital Signs Temp 97.9 F 03/03/18 03:44 Pulse 100 03/03/18 08:34 Resp 18 03/03/18 03:44 BP 95/53 03/03/18 03:44 Pulse Ox 95 03/03/18 08:19 Intake & Output 03/02/18 03/03/18 03/03/18 18:59 06:59 18:59 Intake Total 1333.3 114.217 251.9 Output Total 500 1900 Balance 833.3 -1785.783 251.9 Weight 138.1 kg Intake: IV 360 50 Diltiazem 50 mg In Sodium 40 Chloride 0.9% 40 ml @ 10 MG/HR 10 mls/hr IV .Q5H RODRIGUEZ Rx#:[id number] Levofloxacin 750Mg-D5w 50 Pmx 750 mg In Dextrose/ Water 1 150ml.bag @ 100 mls/hr IVPB HS RODRIGUEZ Rx#: [id number] Sodium Chloride 0.9% 1, 320 000 ml @ 20 mls/hr IV . Q24H RODRIGUEZ Rx#:[id number] Intake, IV Titration 13.3 64.217 11.9 Amount Insulin Regular 100 unit 13.3 64.217 11.9 In Sodium Chloride 0.9% 100 ml @ Titrate IV .Q0M RODRIGUEZ Rx#:[id number] Oral 960 240 Output: Urine 500 1900 Other: Voiding Method Urinal Urinal - Exam - Constitutional General appearance: cooperative, no acute distress, obese - EENT Eyes: anicteric sclerae, PERRLA, normal appearance ENT: hearing grossly normal - Neck Neck: no lymphadenopathy, normal ROM, no other, no rigidity, no stridor, no thyromegaly - Respiratory Respiratory: bilateral: Decreased air entry at the bases with rhonchi posterior lungs - Cardiovascular Rhythm: regular Heart sounds: normal: S1, S2 Abnormal Heart Sounds: no systolic murmur, no diastolic murmur, no rub, no S3 Gallop, no S4 Gallop, no click, no other - Gastrointestinal General gastrointestinal: normal bowel sounds, soft - Integumentary Integumentary: no rash - Neurologic Neurologic: CNII-XII intact - Musculoskeletal Musculoskeletal: gait normal, strength equal bilaterally - Psychiatric Psychiatric: A&O x's 3, appropriate affect - Labs CBC & Chem 7: 03/03/18 06:25 03/03/18 06:25 Labs: Abnormal Lab Results - Last 24 Hours (Table) 03/02/18 03/02/18 03/02/18 Range/Units 11:42 16:18 17:28 WBC (3.8-10.6) k/uL RBC (4.30-5.90) m/uL Hgb (13.0-17.5) gm/dL Hct (39.0-53.0) % RDW (11.5-15.5) % Neutrophils # (1.3-7.7) k/uL Lymphocytes # (1.0-4.8) k/uL Chloride (98-107) mmol/L Carbon Dioxide (22-30) mmol/L BUN (9-20) mg/dL Creatinine (0.66-1.25) mg/dL Glucose (74-99) mg/dL POC Glucose (mg/dL) 353 H 282 H 226 H (75-99) mg/dL Phosphorus (2.5-4.5) mg/dL Magnesium (1.6-2.3) mg/dL 03/02/18 03/02/18 03/02/18 Range/Units 18:00 19:20 21:21 WBC (3.8-10.6) k/uL RBC (4.30-5.90) m/uL Hgb (13.0-17.5) gm/dL Hct (39.0-53.0) % RDW (11.5-15.5) % Neutrophils # (1.3-7.7) k/uL Lymphocytes # (1.0-4.8) k/uL Chloride (98-107) mmol/L Carbon Dioxide (22-30) mmol/L BUN (9-20) mg/dL Creatinine (0.66-1.25) mg/dL Glucose (74-99) mg/dL POC Glucose (mg/dL) 271 H 195 H 174 H (75-99) mg/dL Phosphorus (2.5-4.5) mg/dL Magnesium (1.6-2.3) mg/dL 03/02/18 03/03/18 03/03/18 Range/Units 23:26 00:23 02:28 WBC (3.8-10.6) k/uL RBC (4.30-5.90) m/uL Hgb (13.0-17.5) gm/dL Hct (39.0-53.0) % RDW (11.5-15.5) % Neutrophils # (1.3-7.7) k/uL Lymphocytes # (1.0-4.8) k/uL Chloride (98-107) mmol/L Carbon Dioxide (22-30) mmol/L BUN (9-20) mg/dL Creatinine (0.66-1.25) mg/dL Glucose (74-99) mg/dL POC Glucose (mg/dL) 112 H 223 H 113 H (75-99) mg/dL Phosphorus (2.5-4.5) mg/dL Magnesium (1.6-2.3) mg/dL 03/03/18 03/03/18 03/03/18 Range/Units 03:31 05:31 06:25 WBC 13.3 H (3.8-10.6) k/uL RBC 3.53 L (4.30-5.90) m/uL Hgb 10.2 L (13.0-17.5) gm/dL Hct 32.4 L (39.0-53.0) % RDW 17.1 H (11.5-15.5) % Neutrophils # 12.0 H (1.3-7.7) k/uL Lymphocytes # 0.8 L (1.0-4.8) k/uL Chloride (98-107) mmol/L Carbon Dioxide (22-30) mmol/L BUN (9-20) mg/dL Creatinine (0.66-1.25) mg/dL Glucose (74-99) mg/dL POC Glucose (mg/dL) 144 H 200 H (75-99) mg/dL Phosphorus (2.5-4.5) mg/dL Magnesium (1.6-2.3) mg/dL 03/03/18 03/03/18 Range/Units 06:25 07:30 WBC (3.8-10.6) k/uL RBC (4.30-5.90) m/uL Hgb (13.0-17.5) gm/dL Hct (39.0-53.0) % RDW (11.5-15.5) % Neutrophils # (1.3-7.7) k/uL Lymphocytes # (1.0-4.8) k/uL Chloride 87 L (98-107) mmol/L Carbon Dioxide 38 H (22-30) mmol/L BUN 55 H (9-20) mg/dL Creatinine 1.35 H (0.66-1.25) mg/dL Glucose 109 H (74-99) mg/dL POC Glucose (mg/dL) 149 H (75-99) mg/dL Phosphorus 5.3 H (2.5-4.5) mg/dL Magnesium 2.5 H (1.6-2.3) mg/dL Microbiology - Last 24 Hours (Table) 02/28/18 00:12 Blood Culture - Preliminary Blood No Growth after 72 hours 02/28/18 12:10 Gram Stain - Final Sputum Sputum Culture - Final Assessment and Plan Plan: 1. Sepsis with SIRS, pulmonary is most likely the source, has increasing productive purulent cough, and fever, continue Zosyn and Levaquin for gram- negative pneumonia, sputum and blood cultures to be obtained, pulmonary is following, Solu-Medrol switched to prednisone today 2. Hypotension suspect septic shock, patient received vasopressors transiently , resolved cardiology is on consult secondary to tachycardia, continue IV antibiotics 3. Acute on chronic hypercapnic and hypoxic respiratory failure. Consult with Dr. Olea appreciated. Continue O2 therapy, albuterol nebulizer every 4 hours as needed, Pulmicort 1 mg twice daily. 4. Acute kidney injury with chronic kidney disease stage II secondary to ATN from hypotension and sepsis, during his last admission he had recent acute kidney injury from aggressive diuresing. 5. Paroxysmal Atrial fibrillation with rapid ventricular response. Cardiology consult. Started on IV Cardizem drip. Lopressor dosing to be determined by explosive ordnance specialist with IV Cardizem on board Xarelto has been resumed. 6. Pulmonary hypertension: Patient follows with pulmonary and cardiology. Continue Bumex, hold for parameters, continue valsartan continue metolazone 2.5 Sunday 7. Chronic diastolic heart failure. Initiated back on Bumex 1 mg twice daily, hold Aldactone 25 mg twice daily, on metoprolol 12.5 mg twice a day T. Cardiology consult appreciated. 8. Restless leg syndrome: Remain on Requip 1.5 g daily at bedtime. 9. Hyperlipidemia: Has been on simvastatin 40 mg daily at bedtime. 10. Diabetes: Type II has been on insulin and metformin, and insulin drip. Will switch to sliding scale and Levemir once patient is off his IV steroids 11. Chronic pain syndrome: Has been on Lyrica, Robaxin and scheduled oxycodone. 12. Advance COPD: Patient has been on Bumex, Pulmicort Ventolin. Continue O2 as well. 13. DVT prophylaxis: Patient has been on anticoagulation. 14. GI prophylaxis: Patient will be on pantoprazole 40 mg daily. CODE STATUS: Full code.
[2018-03-03] MEDS: predniSONE 20 MG TAB PO SCH ×2 (09:23→09:31)
[2018-03-03 09:30] LABS: Glucose,Whole Blood 158 mg/dL (75-99)
[2018-03-03] MEDS: METOPROLOL TARTRATE 12.5 MG TAB PO SCH (09:40)
[2018-03-03 11:34] LABS: Glucose,Whole Blood 96 mg/dL (75-99)
--- NOTE | 2018-03-03 12:01 | P.PN ---
Subjective Progress Note Date: 03/03/18 Principal diagnosis: Acute on chronic hypoxic and hypercapnic respiratory failure secondary to COPD and congestive heart failure, possible component of hospital-acquired pneumonia. This is a 68-year-old white male with recent admission to the hospital for acute on chronic hypoxic and hypercapnic respiratory failure, known to have severe COPD, patient was recently discharged to [facility], and he was undergoing rehab. Patient is known to have severe pulmonary hypertension, paroxysmal atrial fibrillation, diastolic congestive heart failure, type 2 diabetes, chronic kidney disease stage II, and at one point he received transient hemodialysis. At any rate patient was brought into the ER from the retirement complaining of increased shortness of breath, low-grade fever, and cough. Chest x-ray showed chronic infiltrate and atelectasis at the bases. Patient was also noted to be hypotensive while in the ER, attempts were made to place a right subclavian central line, however no success. Patient was eventually admitted, fluids were given, and possibility of sepsis was considered. Responded to 4 g of norepinephrine, and patient was diuresed overnight. Follow-up chest x-ray this morning showed atelectasis at the lung bases, and chronic infiltrates. Especially at the left lung base. Patient was switched to BiPAP, and he felt great with BiPAP. Presently on BiPAP with IPAP of 12 and EPAP of 6 FiO2 is down to 30%. ABG earlier today showed a pO2 of 64 pCO2 of 82 pH of 7.33. Renal profile showed a BUN of 55 and creatinine of 1.76. CBC was relatively normal, hemoglobin is 9.6. BNP level on admission was 1620, apparently patient developed more evidence of congestive heart failure upon initial presentation to the ICU as he was given more fluids to deal with his low blood pressure. Shortly after he arrived to the ICU, I cut down his IV fluid to KVO, and recommended Lasix, and switch the patient to BiPAP. For his low blood pressure recommended norepinephrine. Patient seems to be doing much better early this morning. And responding well to treatment. unhappy with his BiPAP, but seems to be quite comfortable on BiPAP. Reevaluated today on 03/01/2018, patient is doing better, off BiPAP, presently on nasal cannula, feels better breathing a lot easier. Chest x-ray is basically the same showing stable bilateral consolidation and possibly small pleural effusions with mild venous congestion. CBC showed WBC count of 14.3 hemoglobin of 10.0 electrolytes were noted to be improving, BUN is better 47 creatinine is better 1.30. Reevaluated today on 03/03/2018, patient is presently on nasal cannula at 3 L, doing well, less shortness of breath, no cough no wheezing. As a matter of fact when I walk to see the patient, his oxygen was disconnected completely, and the patient could not tell the difference. Apparently his was disconnected earlier, and the patient could not tell the difference. O2 saturation is 95% on 3 L nasal cannula. Asked x-ray from yesterday showed cardiomegaly, bibasilar opacities with interstitial prominence, differential diagnoses includes congestive heart failure, and or consolidation with atelectasis. Objective - Vital Signs Vital signs: Vital Signs Temp 97.9 F 03/03/18 08:00 Pulse 96 03/03/18 11:50 Resp 18 03/03/18 08:00 BP 102/73 03/03/18 08:00 Pulse Ox 95 03/03/18 08:19 Intake & Output 03/02/18 03/03/18 03/03/18 18:59 06:59 18:59 Intake Total 1333.3 114.217 263.483 Output Total 500 1900 Balance 833.3 -1785.783 263.483 Weight 138.1 kg Intake: IV 360 50 Diltiazem 50 mg In Sodium 40 Chloride 0.9% 40 ml @ 10 MG/HR 10 mls/hr IV .Q5H RODRIGUEZ Rx#:[id number] Levofloxacin 750Mg-D5w 50 Pmx 750 mg In Dextrose/ Water 1 150ml.bag @ 100 mls/hr IVPB HS RODRIGUEZ Rx#: [id number] Sodium Chloride 0.9% 1, 320 000 ml @ 20 mls/hr IV . Q24H RODRIGUEZ Rx#:[id number] Intake, IV Titration 13.3 64.217 23.483 Amount Insulin Regular 100 unit 13.3 64.217 23.483 In Sodium Chloride 0.9% 100 ml @ Titrate IV .Q0M RODRIGUEZ Rx#:[id number] Oral 960 240 Output: Urine 500 1900 Other: Voiding Method Urinal Urinal - Exam Physical Exam: Revealed a 68-year-old white male, obese, off BiPAP. Practically speaking on room air when I saw today. Patient was connected to 3 L nasal cannula. Head: Atraumatic, normocephalic. HEENT:[ Short obese neck. Neck is supple.] [No neck masses.] [No thyromegaly.] [No JVD.] Mallampati class IV. Chest: [Crackles at the bases, no rhonchi, no wheezes.] Cardiac Exam: [Normal S1 and S2, no S3 gallop, no murmur.] Abdomen: [Soft, nontender, no megaly, no rebound, no guarding, normal bowel sounds.] Extremities: [No clubbing, 1+ bipedal edema, no cyanosis.] Neurological Exam: [No focal neurologic deficit.] Psychiatric: Normal mood affect and mental status examination. - Labs CBC & Chem 7: 03/03/18 06:25 03/03/18 06:25 Labs: Abnormal Lab Results - Last 24 Hours (Table) 03/02/18 03/02/18 03/02/18 Range/Units 16:18 17:28 18:00 WBC (3.8-10.6) k/uL RBC (4.30-5.90) m/uL Hgb (13.0-17.5) gm/dL Hct (39.0-53.0) % RDW (11.5-15.5) % Neutrophils # (1.3-7.7) k/uL Lymphocytes # (1.0-4.8) k/uL Chloride (98-107) mmol/L Carbon Dioxide (22-30) mmol/L BUN (9-20) mg/dL Creatinine (0.66-1.25) mg/dL Glucose (74-99) mg/dL POC Glucose (mg/dL) 282 H 226 H 271 H (75-99) mg/dL Phosphorus (2.5-4.5) mg/dL Magnesium (1.6-2.3) mg/dL 03/02/18 03/02/18 03/02/18 Range/Units 19:20 21:21 23:26 WBC (3.8-10.6) k/uL RBC (4.30-5.90) m/uL Hgb (13.0-17.5) gm/dL Hct (39.0-53.0) % RDW (11.5-15.5) % Neutrophils # (1.3-7.7) k/uL Lymphocytes # (1.0-4.8) k/uL Chloride (98-107) mmol/L Carbon Dioxide (22-30) mmol/L BUN (9-20) mg/dL Creatinine (0.66-1.25) mg/dL Glucose (74-99) mg/dL POC Glucose (mg/dL) 195 H 174 H 112 H (75-99) mg/dL Phosphorus (2.5-4.5) mg/dL Magnesium (1.6-2.3) mg/dL 03/03/18 03/03/18 03/03/18 Range/Units 00:23 02:28 03:31 WBC (3.8-10.6) k/uL RBC (4.30-5.90) m/uL Hgb (13.0-17.5) gm/dL Hct (39.0-53.0) % RDW (11.5-15.5) % Neutrophils # (1.3-7.7) k/uL Lymphocytes # (1.0-4.8) k/uL Chloride (98-107) mmol/L Carbon Dioxide (22-30) mmol/L BUN (9-20) mg/dL Creatinine (0.66-1.25) mg/dL Glucose (74-99) mg/dL POC Glucose (mg/dL) 223 H 113 H 144 H (75-99) mg/dL Phosphorus (2.5-4.5) mg/dL Magnesium (1.6-2.3) mg/dL 03/03/18 03/03/18 03/03/18 Range/Units 05:31 06:25 06:25 WBC 13.3 H (3.8-10.6) k/uL RBC 3.53 L (4.30-5.90) m/uL Hgb 10.2 L (13.0-17.5) gm/dL Hct 32.4 L (39.0-53.0) % RDW 17.1 H (11.5-15.5) % Neutrophils # 12.0 H (1.3-7.7) k/uL Lymphocytes # 0.8 L (1.0-4.8) k/uL Chloride 87 L (98-107) mmol/L Carbon Dioxide 38 H (22-30) mmol/L BUN 55 H (9-20) mg/dL Creatinine 1.35 H (0.66-1.25) mg/dL Glucose 109 H (74-99) mg/dL POC Glucose (mg/dL) 200 H (75-99) mg/dL Phosphorus 5.3 H (2.5-4.5) mg/dL Magnesium 2.5 H (1.6-2.3) mg/dL 03/03/18 03/03/18 Range/Units 07:30 09:28 WBC (3.8-10.6) k/uL RBC (4.30-5.90) m/uL Hgb (13.0-17.5) gm/dL Hct (39.0-53.0) % RDW (11.5-15.5) % Neutrophils # (1.3-7.7) k/uL Lymphocytes # (1.0-4.8) k/uL Chloride (98-107) mmol/L Carbon Dioxide (22-30) mmol/L BUN (9-20) mg/dL Creatinine (0.66-1.25) mg/dL Glucose (74-99) mg/dL POC Glucose (mg/dL) 149 H 158 H (75-99) mg/dL Phosphorus (2.5-4.5) mg/dL Magnesium (1.6-2.3) mg/dL Microbiology - Last 24 Hours (Table) 02/28/18 00:12 Blood Culture - Preliminary Blood No Growth after 72 hours 02/28/18 12:10 Gram Stain - Final Sputum Sputum Culture - Final Assessment and Plan Assessment: Impression: 1 acute on chronic hypoxic respiratory failure and hypercapnic respiratory failure secondary to COPD, congestive heart failure, and possible component of hospital-acquired pneumonia. 2 hypotension, multifactorial secondary to sepsis, and cardiogenic in nature since the patient is known to have severe LV dysfunction, and previous episodes of cardiogenic shock. Septic shock is felt to be less likely. 3 acute on chronic kidney injury, known to have history of chronic kidney disease stage II. 4 paroxysmal atrial fibrillation, presently on Cardizem. Being followed by cardiology. 5 severe pulmonary hypertension mostly cardiac in nature. 6 chronic diastolic congestive heart failure 7 severe COPD 8 multiple comorbidities including restless leg syndrome, type 2 diabetes, chronic pain syndrome, multiple admissions and readmissions to the hospital including [facility] and [facility]. Recommendation: Continue present supportive care measures and treatment plan, patient could be cleared for discharge once cleared by cardiology. Long-term prognosis remains extremely poor and guarded. Time with Patient: Less than 30
[2018-03-03 16:22] LABS: Glucose,Whole Blood 230 mg/dL (75-99)
[2018-03-03] MEDS: RIVAROXABAN 20 MG TAB PO SCH (17:07)
[2018-03-03] MEDS: ATORVASTATIN 20 MG TAB PO SCH (20:33)
[2018-03-03] MEDS ORDERED: INSULIN DETEMIR 100 UNIT/ML 10 ML VIAL SQ SCH (21:00)
[2018-03-03 21:08] LABS: Glucose,Whole Blood 172 mg/dL (75-99)
[2018-03-03] MEDS: LEVOFLOXACIN 750 MG TAB PO SCH (21:08)
[2018-03-04] MEDS: PIPERACILLIN-TAZOBACTAM 3.375 GM in DEXTROSE/WATER 1 50ML.BAG IVPB SCH ×4 (00:07→23:21)
[2018-03-04] MEDS: SODIUM CHLORIDE 0.9% 1,000 ML IV SCH (05:05)
[2018-03-04 06:05] LABS: Glucose,Whole Blood 183 mg/dL (75-99)
[2018-03-04 06:15] LABS: Anisocytosis Slight; Basophils % (A) 0 %; Eosinophils % (A) 0 %; HCT 32.2 % (39.0-53.0); HGB 10.2 gm/dL (13.0-17.5); Hypochromasia Slight; Lymphocytes # (A) 1.1 k/uL (1.0-4.8); Lymphocytes % (A) 8 %; MCH 28.8 pg (25.0-35.0); MCHC 31.7 g/dL (31.0-37.0); MCV 90.7 fL (80.0-100.0); Mean Platelet Volume 7.4; Monocytes # (A) 0.9 k/uL (0-1.0); Monocytes % (A) 6 %; Neutrophils # (A) 12.6 k/uL (1.3-7.7); Neutrophils % (A) 85 %; Platelet Count 271 k/uL (150-450); RBC 3.55 m/uL (4.30-5.90); RDW 17.1 % (11.5-15.5); WBC 14.8 k/uL (3.8-10.6)
[2018-03-04 06:25] LABS: Calcium 8.7 mg/dL (8.4-10.2); Magnesium 2.2 mg/dL (1.6-2.3); Potassium 4.5 mmol/L (3.5-5.1)
[2018-03-04] MEDS: INSULIN ASPART 100 UNIT/ML 1 ML 10 ML VIAL SQ SCH ×7 (06:41→21:25)
[2018-03-04] MEDS: metFORMIN 500 MG TAB PO SCH (06:41)
[2018-03-04] MEDS: PANTOPRAZOLE 40 MG TABLET PO SCH (06:41)
[2018-03-04] MEDS: IPRATROPIUM-ALBUTEROL 3 ML NEB INHALATION SCH ×4 (07:25→19:59)
[2018-03-04] MEDS: BUDESONIDE 1 MG/2 ML NEBU INHALATION SCH ×2 (07:25→19:59)
[2018-03-04] MEDS: METOLAZONE 2.5 MG TAB PO SCH (07:27)
[2018-03-04] MEDS: TRIAMCINOLONE ACET 0.5% CREAM 15 GM TUBE TOPICAL SCH ×2 (08:09→19:56)
[2018-03-04] MEDS: NYSTATIN 100,000UNIT/GM CREAM 30 GM TUBE TOPICAL SCH ×2 (08:09→19:56)
--- NOTE | 2018-03-04 08:20 | PN ---
PROGRESS NOTE This patient is admitted with acute respiratory distress secondary to combination of acute exacerbation of COPD and diastolic heart failure. Patient is comfortably. He denies any orthopnea or PND. He is sitting in a chair without any respiratory distress home. The patient is afebrile. Heart rate now is improved and is 70 to 80 beats per minute. Blood pressure is 105/59 mmHg. First and second heart sounds are normal. Lungs are fairly clear to auscultation and percussion. The patient's urine output remains good. Hemoglobin is 10.2. Electrolytes are normal and creatinine is 1.35. We will continue the current medications. MMODL / IJN: [id number] /
[2018-03-04] MEDS: BUMETANIDE 1 MG TAB PO SCH ×2 (08:34→17:48)
[2018-03-04] MEDS: predniSONE 20 MG TAB PO SCH (08:34)
[2018-03-04] MEDS: guaiFENesin 600 MG TABLET.ER PO SCH ×2 (08:34→19:55)
[2018-03-04] MEDS: PREGABALIN 75 MG CAP PO SCH ×2 (08:34→20:02)
[2018-03-04] MEDS: TAMSULOSIN 0.4 MG CAP.ER.24H PO SCH (08:34)
[2018-03-04] MEDS: METOPROLOL TARTRATE 25 MG TAB PO SCH (08:34)
--- NOTE | 2018-03-04 10:25 | P.PN ---
Subjective Progress Note Date: 03/04/18 67-year-old male one of Dr. Dsouza's patient who seen in 02/12/2018 for acute on chronic hypercapnic and hypoxemic respiratory failure, advanced COPD with acute metabolic encephalopathy of unclear etiology possibly related to hypoxemia and hypercapnia, possible TIA. he currently is in [facility] for subacute rehabilitation,. Medications newly started on discharge was Flomax metoprolol melatonin and insulin NovoLog scale along with maintenance medications, otherwise patient is at baseline medication. He has severe pulmonary hypertension, known paroxysmal atrial fibrillation, now long- term anticoagulation, chronic diastolic CHF, restless leg, diabetes mellitus type 2, CK D stage II with recent acute kidney injury from over diuresing at [facility] 01/17/2018. He had transient use of hemodialysis followed by Dr. Nelson no currently not on any hemodialysis program. No mention of urinary retention, patient was not placed on a Mcgill catheter prior to his last discharge from our facility. He presents to the emergency room secondary to fever of 102, yellowish brown productive cough, shortness of breath increasing cough, and worsening dyspnea. He chronically has some leg swelling bilaterally, no calf pain, no calf tenderness, no chest pain, he is He was subsequently transferred to ICU secondary to hypotension . His WBC count ER was 12.2, creatinine of 1.7 BUN of 57, CO2 of 40, chest x-ray shows chronic infiltrate and atelectasis, no definite CHF, he is proBNP is 1620, urinalysis is normal troponin is 0.014. 03/01: Patient is followed by pulmonary medicine, Dr. Olea and cardiology. Heart rate is in the low 100s, respiratory rate in the 20s, pulse ox 93% on 4 L. Patient was on BiPAP during the night. He remains on Cardizem drip. The Levophed is off. Patient has been afebrile since admission. Blood sugars are running 174-333. Patient will be transitioned off the insulin drip, Levemir increased to 15 units at bedtime, NovoLog scale scheduled for units with meals and scale. White count is up to 14.3, hemoglobin is stable at 10. Renal function is improved with BUN 47 and creatinine 1.3. Blood culture showing no growth after 24 hours. Urine culture and sputum culture in progress. Patient states he has less cough and less productive cough today. He states he needs to have a bowel movement but can not use a bedpan. Nursing will make arrangements. Patient is to be transferred selective care today. 03/02. Patient is breathing comfortably but still requiring 4 L of oxygen. He is having phlegm with cough production. Denies any shortness of breath. Patient glucose continues to range in the 187- 350. Levemir increased to 20 at bedtime, NovoLog increased to 10 units with meals with sliding scale. Continue Cardizem drip. Bumex initiated at 1 mg by mouth twice a day 03/03 patient doing well. Saturating 95% on 4 L. Solu-Medrol IV switched to by mouth prednisone 60 mg. Insulin drip can be's turnoff once patient glucose improved on oral steroids. Walking pulse ox to be done today. Blood pressure on the lower side. Continue to monitor. Metoprolol increased to 25 4 times a day /3 patient examined bedside still continues to have cough with phlegm production. Breathing better on 3 L of oxygen. Patient denies any chest pain abdominal pain does have lower extremity swelling. Bumex initiated. Patient having good urine output. Metoprolol reduced to 15 mg twice a day. discharge tomorrow to [facility] Objective - Vital Signs Vital signs: Vital Signs Temp 97.9 F 03/04/18 08:00 Pulse 101 H 03/04/18 08:00 Resp 18 03/04/18 08:00 BP 117/77 03/04/18 08:00 Pulse Ox 95 03/04/18 08:00 Intake & Output 03/03/18 03/04/18 03/04/18 18:59 06:59 18:59 Intake Total 645.483 660 Output Total 700 1100 Balance -54.517 -440 Weight 139.2 kg Intake: IV 160 180 Sodium Chloride 0.9% 1, 160 180 000 ml @ 20 mls/hr IV . Q24H RODRIGUEZ Rx#:[id number] Intake, IV Titration 23.483 Amount Insulin Regular 100 unit 23.483 In Sodium Chloride 0.9% 100 ml @ Titrate IV .Q0M RODRIGUEZ Rx#:[id number] Oral 462 480 Output: Urine 700 1100 Other: Voiding Method Urinal # Voids 2 - Exam - Constitutional General appearance: cooperative, no acute distress, obese - EENT Eyes: anicteric sclerae, PERRLA, normal appearance ENT: hearing grossly normal - Neck Neck: no lymphadenopathy, normal ROM, no other, no rigidity, no stridor, no thyromegaly - Respiratory Respiratory: bilateral: Decreased air entry at the bases with rhonchi posterior lungs - Cardiovascular Rhythm: regular Heart sounds: normal: S1, S2 Abnormal Heart Sounds: no systolic murmur, no diastolic murmur, no rub, no S3 Gallop, no S4 Gallop, no click, no other - Gastrointestinal General gastrointestinal: normal bowel sounds, soft - Integumentary Integumentary: no rash - Neurologic Neurologic: CNII-XII intact - Musculoskeletal Musculoskeletal: gait normal, strength equal bilaterally - Psychiatric Psychiatric: A&O x's 3, appropriate affect - Labs CBC & Chem 7: 03/04/18 05:44 03/04/18 05:44 Labs: Abnormal Lab Results - Last 24 Hours (Table) 03/03/18 03/03/18 03/04/18 Range/Units 16:20 21:07 05:44 WBC 14.8 H (3.8-10.6) k/uL RBC 3.55 L (4.30-5.90) m/uL Hgb 10.2 L (13.0-17.5) gm/dL Hct 32.2 L (39.0-53.0) % RDW 17.1 H (11.5-15.5) % Neutrophils # 12.6 H (1.3-7.7) k/uL Sodium (137-145) mmol/L Chloride (98-107) mmol/L Carbon Dioxide (22-30) mmol/L BUN (9-20) mg/dL Creatinine (0.66-1.25) mg/dL Glucose (74-99) mg/dL POC Glucose (mg/dL) 230 H 172 H (75-99) mg/dL Phosphorus (2.5-4.5) mg/dL 03/04/18 03/04/18 Range/Units 05:44 06:04 WBC (3.8-10.6) k/uL RBC (4.30-5.90) m/uL Hgb (13.0-17.5) gm/dL Hct (39.0-53.0) % RDW (11.5-15.5) % Neutrophils # (1.3-7.7) k/uL Sodium 132 L (137-145) mmol/L Chloride 85 L (98-107) mmol/L Carbon Dioxide 38 H (22-30) mmol/L BUN 62 H (9-20) mg/dL Creatinine 1.51 H (0.66-1.25) mg/dL Glucose 158 H (74-99) mg/dL POC Glucose (mg/dL) 183 H (75-99) mg/dL Phosphorus 5.0 H (2.5-4.5) mg/dL Microbiology - Last 24 Hours (Table) 02/28/18 00:12 Blood Culture - Preliminary Blood No Growth after 96 hours Assessment and Plan Plan: 1. Sepsis with SIRS, pulmonary is most likely the source, has increasing productive purulent cough, and fever, continue Zosyn and Levaquin for gram- negative pneumonia, sputum and blood cultures to be obtained, pulmonary is following, Solu-Medrol switched to prednisone today 2. Hypotension suspect septic shock, patient received vasopressors transiently , resolved cardiology is on consult secondary to tachycardia, continue IV antibiotics 3. Acute on chronic hypercapnic and hypoxic respiratory failure. Again very to acute diastolic heart failure and COPD exacerbation Consult with Dr. Olea appreciated. Continue O2 therapy, albuterol nebulizer every 4 hours as needed, Pulmicort 1 mg twice daily. Prednisone 60 mg by mouth daily 4. Acute kidney injury with chronic kidney disease stage II secondary to ATN from hypotension and sepsis, during his last admission he had recent acute kidney injury from aggressive diuresing. 5. Paroxysmal Atrial fibrillation with rapid ventricular response. Cardiology consult. Metoprolol 50 mg twice a day Xarelto has been resumed. 6. Pulmonary hypertension: Patient follows with pulmonary and cardiology. Continue Bumex, hold for parameters, continue valsartan continue metolazone 2.5 Sunday 7. Chronic diastolic heart failure. Initiated back on Bumex 1 mg twice daily, hold Aldactone 25 mg twice daily, on metoprolol 50 mg twice a day T. Cardiology consult appreciated. 8. Restless leg syndrome: Remain on Requip 1.5 g daily at bedtime. 9. Hyperlipidemia: Has been on simvastatin 40 mg daily at bedtime. 10. Diabetes: Type II has been on insulin and metformin, and insulin drip. Will switch to sliding scale and Levemir once patient is off his IV steroids 11. Chronic pain syndrome: Has been on Lyrica, Robaxin and scheduled oxycodone. 12. Advance COPD: Patient has been on Bumex, Pulmicort Ventolin. Continue O2 as well. 13. DVT prophylaxis: Patient has been on anticoagulation. 14. GI prophylaxis: Patient will be on pantoprazole 40 mg daily. CODE STATUS: Full code.
--- NOTE | 2018-03-04 11:05 | P.PN ---
Subjective Progress Note Date: 03/04/18 Principal diagnosis: Acute on chronic hypoxic and hypercapnic respiratory failure secondary to COPD and congestive heart failure, possible component of hospital-acquired pneumonia. This is a 68-year-old white male with recent admission to the hospital for acute on chronic hypoxic and hypercapnic respiratory failure, known to have severe COPD, patient was recently discharged to [facility], and he was undergoing rehab. Patient is known to have severe pulmonary hypertension, paroxysmal atrial fibrillation, diastolic congestive heart failure, type 2 diabetes, chronic kidney disease stage II, and at one point he received transient hemodialysis. At any rate patient was brought into the ER from the senior living complaining of increased shortness of breath, low-grade fever, and cough. Chest x-ray showed chronic infiltrate and atelectasis at the bases. Patient was also noted to be hypotensive while in the ER, attempts were made to place a right subclavian central line, however no success. Patient was eventually admitted, fluids were given, and possibility of sepsis was considered. Responded to 4 g of norepinephrine, and patient was diuresed overnight. Follow-up chest x-ray this morning showed atelectasis at the lung bases, and chronic infiltrates. Especially at the left lung base. Patient was switched to BiPAP, and he felt great with BiPAP. Presently on BiPAP with IPAP of 12 and EPAP of 6 FiO2 is down to 30%. ABG earlier today showed a pO2 of 64 pCO2 of 82 pH of 7.33. Renal profile showed a BUN of 55 and creatinine of 1.76. CBC was relatively normal, hemoglobin is 9.6. BNP level on admission was 1620, apparently patient developed more evidence of congestive heart failure upon initial presentation to the ICU as he was given more fluids to deal with his low blood pressure. Shortly after he arrived to the ICU, I cut down his IV fluid to KVO, and recommended Lasix, and switch the patient to BiPAP. For his low blood pressure recommended norepinephrine. Patient seems to be doing much better early this morning. And responding well to treatment. unhappy with his BiPAP, but seems to be quite comfortable on BiPAP. Reevaluated today on 03/01/2018, patient is doing better, off BiPAP, presently on nasal cannula, feels better breathing a lot easier. Chest x-ray is basically the same showing stable bilateral consolidation and possibly small pleural effusions with mild venous congestion. CBC showed WBC count of 14.3 hemoglobin of 10.0 electrolytes were noted to be improving, BUN is better 47 creatinine is better 1.30. Reevaluated today on 03/03/2018, patient is presently on nasal cannula at 3 L, doing well, less shortness of breath, no cough no wheezing. As a matter of fact when I walk to see the patient, his oxygen was disconnected completely, and the patient could not tell the difference. Apparently his was disconnected earlier, and the patient could not tell the difference. O2 saturation is 95% on 3 L nasal cannula. Asked x-ray from yesterday showed cardiomegaly, bibasilar opacities with interstitial prominence, differential diagnoses includes congestive heart failure, and or consolidation with atelectasis. Reevaluated today on 03/04/2018, continues to gradually improve, patient is asking to be discharged home. I have explained to the patient that it is up to the wire weaver to clear for discharge, from my perspective the patient could be cleared for discharge and he will need to follow-up with Dr. Velazquez. I communicated also with his admitting physician. Labs were reviewed patient remains on 3 L nasal cannula. Renal profile is slightly worse today compared to yesterday, creatinine is 1.51. Objective - Vital Signs Vital signs: Vital Signs Temp 97.9 F 03/04/18 08:00 Pulse 101 H 03/04/18 08:00 Resp 18 03/04/18 08:00 BP 117/77 03/04/18 08:00 Pulse Ox 95 03/04/18 08:00 Intake & Output 03/03/18 03/04/18 03/04/18 18:59 06:59 18:59 Intake Total 645.483 660 Output Total 700 1100 Balance -54.517 -440 Weight 139.2 kg Intake: IV 160 180 Sodium Chloride 0.9% 1, 160 180 000 ml @ 20 mls/hr IV . Q24H RODRIGUEZ Rx#:[id number] Intake, IV Titration 23.483 Amount Insulin Regular 100 unit 23.483 In Sodium Chloride 0.9% 100 ml @ Titrate IV .Q0M RODRIGUEZ Rx#:[id number] Oral 462 480 Output: Urine 700 1100 Other: Voiding Method Urinal # Voids 2 - Exam Physical Exam: Revealed a 68-year-old white male, obese, on 3 L nasal cannula, asymptomatic and in no distress Head: Atraumatic, normocephalic. HEENT:[ Short obese neck. Neck is supple.] [No neck masses.] [No thyromegaly.] [No JVD.] Mallampati class IV. Chest: [Crackles at the bases, no rhonchi, no wheezes.] Cardiac Exam: [Normal S1 and S2, no S3 gallop, no murmur.] Abdomen: [Soft, nontender, no megaly, no rebound, no guarding, normal bowel sounds.] Extremities: [No clubbing, 1+ bipedal edema, no cyanosis.] Neurological Exam: [No focal neurologic deficit.] Psychiatric: Normal mood affect and mental status examination. - Labs CBC & Chem 7: 03/04/18 05:44 03/04/18 05:44 Labs: Abnormal Lab Results - Last 24 Hours (Table) 03/03/18 03/03/18 03/04/18 Range/Units 16:20 21:07 05:44 WBC 14.8 H (3.8-10.6) k/uL RBC 3.55 L (4.30-5.90) m/uL Hgb 10.2 L (13.0-17.5) gm/dL Hct 32.2 L (39.0-53.0) % RDW 17.1 H (11.5-15.5) % Neutrophils # 12.6 H (1.3-7.7) k/uL Sodium (137-145) mmol/L Chloride (98-107) mmol/L Carbon Dioxide (22-30) mmol/L BUN (9-20) mg/dL Creatinine (0.66-1.25) mg/dL Glucose (74-99) mg/dL POC Glucose (mg/dL) 230 H 172 H (75-99) mg/dL Phosphorus (2.5-4.5) mg/dL 03/04/18 03/04/18 Range/Units 05:44 06:04 WBC (3.8-10.6) k/uL RBC (4.30-5.90) m/uL Hgb (13.0-17.5) gm/dL Hct (39.0-53.0) % RDW (11.5-15.5) % Neutrophils # (1.3-7.7) k/uL Sodium 132 L (137-145) mmol/L Chloride 85 L (98-107) mmol/L Carbon Dioxide 38 H (22-30) mmol/L BUN 62 H (9-20) mg/dL Creatinine 1.51 H (0.66-1.25) mg/dL Glucose 158 H (74-99) mg/dL POC Glucose (mg/dL) 183 H (75-99) mg/dL Phosphorus 5.0 H (2.5-4.5) mg/dL Microbiology - Last 24 Hours (Table) 02/28/18 00:12 Blood Culture - Preliminary Blood No Growth after 96 hours Assessment and Plan Assessment: Impression: 1 acute on chronic hypoxic respiratory failure and hypercapnic respiratory failure secondary to COPD, congestive heart failure, and possible component of hospital-acquired pneumonia. 2 hypotension, multifactorial secondary to sepsis, and cardiogenic in nature since the patient is known to have severe LV dysfunction, and previous episodes of cardiogenic shock. Septic shock is felt to be less likely. 3 acute on chronic kidney injury, known to have history of chronic kidney disease stage II. 4 paroxysmal atrial fibrillation, presently on Cardizem. Being followed by cardiology. 5 severe pulmonary hypertension mostly cardiac in nature. 6 chronic diastolic congestive heart failure 7 severe COPD 8 multiple comorbidities including restless leg syndrome, type 2 diabetes, chronic pain syndrome, multiple admissions and readmissions to the hospital including [facility] and [facility]. Recommendation: Continue present supportive care measures and treatment plan, patient could be cleared for discharge once cleared by cardiology. Long-term prognosis remains extremely poor and guarded. Time with Patient: Less than 30
[2018-03-04 11:54] LABS: Glucose,Whole Blood 119 mg/dL (75-99)
[2018-03-04 17:05] LABS: Glucose,Whole Blood 292 mg/dL (75-99)
[2018-03-04] MEDS: RIVAROXABAN 20 MG TAB PO SCH (17:48)
[2018-03-04] MEDS: LEVOFLOXACIN 750 MG TAB PO SCH (19:53)
[2018-03-04] MEDS: ATORVASTATIN 20 MG TAB PO SCH (19:54)
[2018-03-04] MEDS: METOPROLOL TARTRATE 50 MG TAB PO SCH (20:02)
[2018-03-04 20:53] LABS: Glucose,Whole Blood 235 mg/dL (75-99)
[2018-03-04] MEDS ORDERED: INSULIN DETEMIR 100 UNIT/ML 10 ML VIAL SQ SCH (21:00)
[2018-03-04 23:26] VITALS: RESP 20
[2018-03-05] MEDS: SODIUM CHLORIDE 0.9% 1,000 ML IV SCH (03:39)
[2018-03-05 06:07] LABS: Glucose,Whole Blood 141 mg/dL (75-99)
[2018-03-05] MEDS: PANTOPRAZOLE 40 MG TABLET PO SCH (06:23)
[2018-03-05 07:02] LABS: Anisocytosis Slight; Basophils % (A) 0 %; Eosinophils # (A) 0.2 k/uL (0-0.7); Eosinophils % (A) 1 %; HCT 33.7 % (39.0-53.0); HGB 10.5 gm/dL (13.0-17.5); Hypochromasia Slight; Lymphocytes # (A) 1.9 k/uL (1.0-4.8); Lymphocytes % (A) 14 %; MCH 28.4 pg (25.0-35.0); MCHC 31.2 g/dL (31.0-37.0); Mean Platelet Volume 7.1; Monocytes # (A) 0.9 k/uL (0-1.0); Monocytes % (A) 6 %; Neutrophils # (A) 10.4 k/uL (1.3-7.7); Neutrophils % (A) 77 %; Platelet Count 277 k/uL (150-450); RDW 17.6 % (11.5-15.5); WBC 13.4 k/uL (3.8-10.6)
[2018-03-05] MEDS: INSULIN ASPART 100 UNIT/ML 1 ML 10 ML VIAL SQ SCH ×4 (07:09→12:55)
[2018-03-05 07:12] LABS: Calcium 8.8 mg/dL (8.4-10.2); Magnesium 2.1 mg/dL (1.6-2.3); Phosphorus 5.3 mg/dL (2.5-4.5); Potassium 4.1 mmol/L (3.5-5.1)
[2018-03-05] MEDS: IPRATROPIUM-ALBUTEROL 3 ML NEB INHALATION SCH ×2 (08:23→11:39)
[2018-03-05] MEDS: BUDESONIDE 1 MG/2 ML NEBU INHALATION SCH (08:23)
[2018-03-05] MEDS: PIPERACILLIN-TAZOBACTAM 3.375 GM in DEXTROSE/WATER 1 50ML.BAG IVPB SCH (08:35)
--- NOTE | 2018-03-05 08:48 | CONS ---
CONSULTATION This patient's medical EMR reviewed. Patient was admitted with acute respiratory distress secondary to combination of acute exacerbation of COPD, possible pneumonia and diastolic heart failure. Patient is feeling better. He is sitting at the bedside chair comfortably. No respiratory distress is noted. The patient is afebrile. The patient's heart rate now is 100 to 110 mmHg. First and second heart sounds are normal. Lungs reveal a few scattered wheezes and basal rales noted. The chest x-ray the does not show any significant failure. Patient's hemoglobin is 10. Creatinine is 1.30. The patient is currently getting Bumex 1 mg b.i.d. We will discontinue the IV Cardizem drip. Metoprolol is increased to 25 mg q.6 hourly. Recent echocardiogram revealed preserved left ventricular systolic function. CECE / FORD: [id number] /
--- NOTE | 2018-03-05 08:48 | PN ---
PROGRESS NOTE This patient is admitted with acute respiratory distress. The patient has a chronic atrial fibrillation, diastolic heart failure and COPD. Patient is feeling better. He is sitting comfortably in the bed without any respiratory distress. Heart rate is in the range of 80 to 100 per minute. Blood pressure is 123/61 mmHg. Heart sounds are heard. Lungs are fairly clear to auscultation and percussion. No significant congestive heart failure is noted. We will continue the patient on the current medications. When the patient is discharged, I will recommend to treat the patient with Lopressor 50 mg b.i.d. MMSOHAILL / SARAYN: [id number] /
--- NOTE | 2018-03-05 09:33 | P.DS ---
Providers Date of admission: 02/28/18 00:24 Expected date of discharge: 03/05/18 Attending physician: Rola Powell Consults: 02/28/18 00:24 Consult Physician Stat Consulting Provider: Héctor Olea Consult Reason/Comments: critical care Do you want consulting provider notified?: Already Contacted 02/28/18 11:49 Consult Physician Routine Consulting Provider: Chris Denise Consult Reason/Comments: afib rate Do you want consulting provider notified?: Yes Primary care physician: Paulette Dsouza [facility] Course: 67-year-old male one of Dr. Dsouza's patient who seen in 02/12/2018 for acute on chronic hypercapnic and hypoxemic respiratory failure, advanced COPD with acute metabolic encephalopathy of unclear etiology possibly related to hypoxemia and hypercapnia, possible TIA. he currently is in [facility] for subacute rehabilitation,. Medications newly started on discharge was Flomax metoprolol melatonin and insulin NovoLog scale along with maintenance medications, otherwise patient is at baseline medication. He has severe pulmonary hypertension, known paroxysmal atrial fibrillation, now long- term anticoagulation, chronic diastolic CHF, restless leg, diabetes mellitus type 2, CK D stage II with recent acute kidney injury from over diuresing at [facility] 01/17/2018. He had transient use of hemodialysis followed by Dr. Nelson no currently not on any hemodialysis program. No mention of urinary retention, patient was not placed on a Mcgill catheter prior to his last discharge from our facility. He presents to the emergency room secondary to fever of 102, yellowish brown productive cough, shortness of breath increasing cough, and worsening dyspnea. He chronically has some leg swelling bilaterally, no calf pain, no calf tenderness, no chest pain, he is He was subsequently transferred to ICU secondary to hypotension . His WBC count ER was 12.2, creatinine of 1.7 BUN of 57, CO2 of 40, chest x-ray shows chronic infiltrate and atelectasis, no definite CHF, he is proBNP is 1620, urinalysis is normal troponin is 0.014. 03/01: Patient is followed by pulmonary medicine, Dr. Olea and cardiology. Heart rate is in the low 100s, respiratory rate in the 20s, pulse ox 93% on 4 L. Patient was on BiPAP during the night. He remains on Cardizem drip. The Levophed is off. Patient has been afebrile since admission. Blood sugars are running 174-333. Patient will be transitioned off the insulin drip, Levemir increased to 15 units at bedtime, NovoLog scale scheduled for units with meals and scale. White count is up to 14.3, hemoglobin is stable at 10. Renal function is improved with BUN 47 and creatinine 1.3. Blood culture showing no growth after 24 hours. Urine culture and sputum culture in progress. Patient states he has less cough and less productive cough today. He states he needs to have a bowel movement but can not use a bedpan. Nursing will make arrangements. Patient is to be transferred selective care today. 03/02. Patient is breathing comfortably but still requiring 4 L of oxygen. He is having phlegm with cough production. Denies any shortness of breath. Patient glucose continues to range in the 187- 350. Levemir increased to 20 at bedtime, NovoLog increased to 10 units with meals with sliding scale. Continue Cardizem drip. Bumex initiated at 1 mg by mouth twice a day 03/03 patient doing well. Saturating 95% on 4 L. Solu-Medrol IV switched to by mouth prednisone 60 mg. Insulin drip can be's turnoff once patient glucose improved on oral steroids. Walking pulse ox to be done today. Blood pressure on the lower side. Continue to monitor. Metoprolol increased to 25 4 times a day 03/04 patient examined bedside still continues to have cough with phlegm production. Breathing better on 3 L of oxygen. Patient denies any chest pain abdominal pain does have lower extremity swelling. Bumex initiated. Patient having good urine output. Metoprolol reduced to 15 mg twice a day. discharge tomorrow to [facility] 03/05: Vision has been cleared by Dr. Olea for return to [facility]. Heart rate is running in the low 100s, blood pressure stable. Cardiology is also cleared the patient for discharge with recommendations to continue Lopressor 50 mg twice daily. Pulse ox is 97% on 3 L nasal cannula. CO2 is 40, renal function is slightly improved from yesterday with BUN of 54 and creatinine 1.41. Patient is anxious to be discharged. He has been switched over to oral Bumex 1 mg twice daily and is currently on prednisone as well which he will continue on a tapering dose. Patient has 9 more days of Levaquin to complete a 14 day course. She will be discharged back to [facility] today in stable condition. Discharge diagnoses: 1. Sepsis with SIRS secondary to possible gram-negative pneumonia 2. Hypotension suspect septic shock, patient received vasopressors transiently , resolved 3. Acute on chronic hypercapnic and hypoxic respiratory failure secondary to COPD, acute on chronic diastolic heart failure, possible gram-negative pneumonia. 4. Acute kidney injury with chronic kidney disease stage II secondary to ATN from hypotension and sepsis 5. Chronic Atrial fibrillation with rapid ventricular response. 6. Pulmonary hypertension 7. Chronic diastolic heart failure. 8. Restless leg syndrome 9. Hyperlipidemia 10. Diabetes: Type II 11. Chronic pain syndrome 12. Advance COPD Discharge plan: Return to [facility] under the care of Dr. Dsouza Impression and plan of care have been directed as dictated by the signing physician. Larissa Warner nurse practitioner acting as scribe for signing physician. Patient Condition at Discharge: Good Plan - Discharge Summary Discharge Rx Participant: Yes New Discharge Prescriptions: New Bumetanide [BUMEX] 1 mg PO BID@0800,1700 tab Insulin Aspart [NovoLOG (formulary)] 10 unit SQ AC-TID vial Insulin Detemir [Levemir] 25 unit SQ HS syr Levofloxacin [Levaquin] 750 mg PO HS #9 tab Metoprolol Tartrate [Lopressor] 50 mg PO BID tab predniSONE 10 mg PO DAILY #60 tab Continue Albuterol Inhaler [Ventolin Hfa Inhaler] 2 puff INHALATION RT-QID PRN PRN Reason: Shortness Of Breath Ferrous Sulfate [Feosol] 325 mg PO SA rOPINIRole HCL [Requip] 1 mg PO HS Methocarbamol [Robaxin-750] 750 mg PO TID PRN PRN Reason: Muscle Spasm rOPINIRole HCL [Requip] 0.5 mg PO HS@2100 Ergocalciferol (Vitamin D2) [Vitamin D2] 50,000 unit PO SA Budesonide [Pulmicort] 1 mg INHALATION RT-BID Simvastatin 40 mg PO HS@2100 Melatonin 3 mg PO HS PRN tablet PRN Reason: Insomnia Tamsulosin [Flomax] 0.4 mg PO PC-BRKFST cap.er.24h Acetaminophen [Tylenol Arthritis] 650 mg PO Q4H PRN PRN Reason: Pain Bisacodyl [Dulcolax] 10 mg RECTAL DAILY PRN PRN Reason: Constipation Docusate [Colace] 100 mg PO BID@0800,1700 guaiFENesin [Mucinex] 600 mg PO BID Insulin Aspart [NovoLOG (formulary)] See Protocol SQ ACHS Ipratropium-Albuterol Nebulize [Duoneb 0.5 mg-3 mg/3 ml Soln] 3 ml INHALATION RT-Q6H PRN PRN Reason: Shortness Of Breath Magnesium Hydroxide [Milk of Magnesia] 2,400 mg PO DAILY PRN PRN Reason: Constipation Metolazone [Zaroxolyn] 2.5 mg PO MOWEFR@0600 Na Phos,M-B/Na Phos,Di-Ba [Fleet Adult] 133 ml RECTAL DAILY PRN PRN Reason: Constipation Nystatin 100,000Unit/gm Cream [Mycostatin Cream] 1 applic TOPICAL BID@0800, 2100 Pantoprazole [Protonix] 40 mg PO DAILY@0600 Pregabalin [Lyrica] 150 mg PO BID@0800,2100 Rivaroxaban [Xarelto] 20 mg PO HS@1700 Triamcinolone 0.5% Cream [Kenalog 0.5% Cream] 1 applic TOPICAL BID Changed Losartan [Cozaar] 25 mg PO DAILY@0800 #0 Spironolactone [Aldactone] 25 mg PO DAILY #0 Discontinued metFORMIN HCL 1,000 mg PO BID@0800,1700 Albuterol Nebulized [Ventolin Nebulized] 2.5 mg INHALATION RT-Q4H PRN PRN Reason: Shortness Of Breath Bumetanide [BUMEX] 2 mg PO BID@0800,1700 Furosemide Solu 40mg/4ml 80 mg PO ONCE Insulin Detemir [Levemir] 10 unit SQ HS@2100 Metoprolol Succinate (ER) [Toprol XL] 75 mg PO DAILY@0800 Discharge Medication List Albuterol Inhaler [Ventolin Hfa Inhaler] 2 puff INHALATION RT-QID PRN 11/11/15 [ History] Ferrous Sulfate [Feosol] 325 mg PO SA 11/12/17 [History] rOPINIRole HCL [Requip] 1 mg PO HS 11/12/17 [History] Budesonide [Pulmicort] 1 mg INHALATION RT-BID 01/14/18 [History] Ergocalciferol (Vitamin D2) [Vitamin D2] 50,000 unit PO SA 01/14/18 [History] Methocarbamol [Robaxin-750] 750 mg PO TID PRN 01/14/18 [History] Simvastatin 40 mg PO HS@209901/14/18 [History] rOPINIRole HCL [Requip] 0.5 mg PO HS@209901/14/18 [History] Melatonin 3 mg PO HS PRN tablet 02/14/18 [Rx] Tamsulosin [Flomax] 0.4 mg PO PC-BRKFST cap.er.24h 02/14/18 [Rx] Acetaminophen [Tylenol Arthritis] 650 mg PO Q4H PRN 02/28/18 [History] Bisacodyl [Dulcolax] 10 mg RECTAL DAILY PRN 02/28/18 [History] Docusate [Colace] 100 mg PO BID@0800,1700 02/28/18 [History] Insulin Aspart [NovoLOG (formulary)] See Protocol SQ ACHS 02/28/18 [History] Ipratropium-Albuterol Nebulize [Duoneb 0.5 mg-3 mg/3 ml Soln] 3 ml INHALATION RT -Q6H PRN 02/28/18 [History] Magnesium Hydroxide [Milk of Magnesia] 2,400 mg PO DAILY PRN 02/28/18 [History] Metolazone [Zaroxolyn] 2.5 mg PO MOWEFR@0602/28/18 [History] Na Phos,M-B/Na Phos,Di-Ba [Fleet Adult] 133 ml RECTAL DAILY PRN 02/28/18 [ History] Nystatin 100,000Unit/gm Cream [Mycostatin Cream] 1 applic TOPICAL BID@0800,209902/28/18 [History] Pantoprazole [Protonix] 40 mg PO DAILY@0600 02/28/18 [History] Pregabalin [Lyrica] 150 mg PO BID@0800,209902/28/18 [History] Rivaroxaban [Xarelto] 20 mg PO HS@1700 02/28/18 [History] Triamcinolone 0.5% Cream [Kenalog 0.5% Cream] 1 applic TOPICAL BID 02/28/18 [ History] guaiFENesin [Mucinex] 600 mg PO BID 02/28/18 [History] Bumetanide [BUMEX] 1 mg PO BID@0800,1700 tab 03/05/18 [Rx] Insulin Aspart [NovoLOG (formulary)] 10 unit SQ AC-TID vial 03/05/18 [Rx] Insulin Detemir [Levemir] 25 unit SQ HS syr 03/05/18 [Rx] Levofloxacin [Levaquin] 750 mg PO HS #9 tab 03/05/18 [Rx] Losartan [Cozaar] 25 mg PO DAILY@0800 #0 03/05/18 [Rx] Metoprolol Tartrate [Lopressor] 50 mg PO BID tab 03/05/18 [Rx] Spironolactone [Aldactone] 25 mg PO DAILY #0 03/05/18 [Rx] predniSONE 10 mg PO DAILY #60 tab 03/05/18 [Rx] Follow up Appointment(s)/Referral(s): [facility] [Provider Group] - 1 Week Paulette Dsouza MD [Primary Care Provider] - 1 Week (at [facility]) Yobany De La Rosa DO [Doctor of Osteopathic Medicine] - 1 Week Patient Instructions/Handouts: COPD (Chronic Obstructive Pulmonary Disease) (DC ), Sepsis (GEN), Pneumonia (DC) Discharge Disposition: TRANSFER TO SNF/ECF
[2018-03-05] MEDS: NYSTATIN 100,000UNIT/GM CREAM 30 GM TUBE TOPICAL SCH (10:59)
[2018-03-05] MEDS: PREGABALIN 75 MG CAP PO SCH (11:04)
[2018-03-05] MEDS: guaiFENesin 600 MG TABLET.ER PO SCH (11:04)
[2018-03-05] MEDS: BUMETANIDE 1 MG TAB PO SCH (11:04)
[2018-03-05] MEDS: predniSONE 20 MG TAB PO SCH (11:04)
[2018-03-05] MEDS: TAMSULOSIN 0.4 MG CAP.ER.24H PO SCH (11:05)
[2018-03-05] MEDS: METOPROLOL TARTRATE 50 MG TAB PO SCH (11:05)
[2018-03-05 11:18] LABS: Glucose,Whole Blood 125 mg/dL (75-99)
[2018-03-05 11:35] VITALS: TEMP 97.4
[2018-03-05] MEDS: TRIAMCINOLONE ACET 0.5% CREAM 15 GM TUBE TOPICAL SCH (11:37)
--- NOTE | 2018-03-05 12:35 | P.PN ---
Subjective Progress Note Date: 03/05/18 Principal diagnosis: COPD, sepsis, pneumonia. Progress note dated 03/05/2018 68-year-old male, well-known to our service. He has a history of acute on chronic hypoxemic and hypercapnic respiratory failure secondary to COPD CHF and possible pneumonia. He also has a history of sleep apnea syndrome. He asked about his CPAP device. We'll have to check with the office. Apparently he has seen my partner in the past for sleep apnea syndrome. In addition, he has a history of hypotension chronic kidney disease paroxysmal atrial fibrillation pulmonary hypertension diastolic heart failure severe COPD restless leg syndrome diabetes chronic pain syndrome and multiple admissions to this hospital. The patient probably would do well with a CPAP device or a Trilogy ventilator. We'll have to work on that as an outpatient. The patient is scheduled to be discharged today. He likely is going to be discharged back to the senior care. Objective - Vital Signs Vital signs: Vital Signs Temp 97.4 F L 03/05/18 08:00 Pulse 104 H 03/05/18 11:50 Resp 20 03/05/18 08:00 BP 121/74 03/05/18 08:00 Pulse Ox 95 03/05/18 08:00 Intake & Output 03/04/18 03/05/18 03/05/18 18:59 06:59 18:59 Intake Total 240 240 Output Total 1100 0 Balance -860 -2049 240 Weight 136.8 kg Intake: IV 0 Sodium Chloride 0.9% 1, 0 000 ml @ 20 mls/hr IV . Q24H RODRIGUEZ Rx#:[id number] Oral 240 240 Output: Urine 1100 2049 Other: Voiding Method Toilet Toilet Urinal Urinal # Voids 2 1 - Exam No acute distress, oriented 3. HEENT examination is grossly unremarkable. Mucous membranes are moist. No oral lesions. Neck supple. Full range of motion. No adenopathy thyromegaly or neck vein distention. Cardiovascular examination reveals irregular rhythm rate. S1-S2 normal. No S3 or S4. No discernible murmur noted. Heart rate is 82. Heart sounds are distant. Lungs reveal bibasilar crackles. No wheezes or rhonchi. Breath sounds equal bilaterally. Abdomen soft bowel sounds are heard. No masses or tenderness. Extremities are intact. Mild edema is noted. No cyanosis or clubbing. Skin is without rash or lesion. Neurologic examination is brief but nonfocal. - Labs CBC & Chem 7: 03/05/18 06:44 03/05/18 06:44 Labs: Abnormal Lab Results - Last 24 Hours (Table) 03/04/18 03/04/18 03/05/18 Range/Units 16:14 20:52 06:05 WBC (3.8-10.6) k/uL RBC (4.30-5.90) m/uL Hgb (13.0-17.5) gm/dL Hct (39.0-53.0) % RDW (11.5-15.5) % Neutrophils # (1.3-7.7) k/uL Sodium (137-145) mmol/L Chloride (98-107) mmol/L Carbon Dioxide (22-30) mmol/L BUN (9-20) mg/dL Creatinine (0.66-1.25) mg/dL Glucose (74-99) mg/dL POC Glucose (mg/dL) 292 H 235 H 141 H (75-99) mg/dL Phosphorus (2.5-4.5) mg/dL 03/05/18 03/05/18 03/05/18 Range/Units 06:44 06:44 11:16 WBC 13.4 H (3.8-10.6) k/uL RBC 3.70 L (4.30-5.90) m/uL Hgb 10.5 L (13.0-17.5) gm/dL Hct 33.7 L (39.0-53.0) % RDW 17.6 H (11.5-15.5) % Neutrophils # 10.4 H (1.3-7.7) k/uL Sodium 136 L (137-145) mmol/L Chloride 84 L (98-107) mmol/L Carbon Dioxide 40 H* (22-30) mmol/L BUN 54 H (9-20) mg/dL Creatinine 1.41 H (0.66-1.25) mg/dL Glucose 114 H (74-99) mg/dL POC Glucose (mg/dL) 125 H (75-99) mg/dL Phosphorus 5.3 H (2.5-4.5) mg/dL Microbiology - Last 24 Hours (Table) 02/28/18 00:12 Blood Culture - Preliminary Blood No Growth after 120 hours Assessment and Plan Assessment: Assessment Acute on chronic hypoxemic respiratory failure with associated hypercapnic respiratory failure, secondary to severe COPD, congestive heart failure and hospital-acquired pneumonia. Hypotension, likely secondary to cardiogenic causes and/or sepsis, resolved Acute on chronic kidney injury. Paroxysmal atrial fibrillation Severe pulmonary hypertension Chronic diastolic heart failure. Severe COPD Restless leg syndrome Type 2 diabetes mellitus Chronic pain syndrome Plan: Plan dated 03/05/2018 The patient has a multitude of medical problems and likely will be admitted to the hospital in the near future. I will check in the office to see if he actually has had a sleep study and whether or not CPAP was recommended. He does seem to respond to CPAP/BiPAP when here in the hospital. So far, all microbiologic studies are negative. Last chest x-ray shows cardiomegaly with some mild interstitial edema and small effusions. Lab work from today shows a white count of 13.4, hemoglobin 10.5, hematocrit 33.7, and a platelet count of 277,000. Sodium 136 potassium 4.1 chloride 94 CO2 40, BUN and creatinine were 54 and 1.41. He is a big time CO2 retainer and likely has very very severe COPD. Prognosis is poor and very guarded and we will follow the patient closely. Follow-up in the office as well. Time with Patient: Less than 30
[2018-03-05 13:41] VITALS: PULSE 100
--- NOTE | 2018-03-05 13:42 | P.PN ---
Subjective Mr. Styles is seen and examined sitting up in the chair. Past medical history significant for severe COPD, pulmonary hypertension, chronic diastolic heart failure and atrial fibrillation. He follows with Dr. Hamlin in the office. He states his edema has greatly improved. He denies chest pain, increased shortness of breath, dizziness or palpitations. Laboratory data reviewed, WBC 13.4, hemoglobin 10.5, platelets 277, sodium 136, potassium 4.1, creatinine 1.41 , magnesium 2.1. Blood pressure 121/74 heart rate 104. Currently maintained on atorvastatin, Bumex 1 mg twice a day, metoprolol 50 mg twice a day, metolazone 2.5 mg Sunday, and Xarelto. Objective - Vital Signs Vital signs: Vital Signs Temp 97.4 F L 03/05/18 08:00 Pulse 104 H 03/05/18 11:50 Resp 20 03/05/18 08:00 BP 121/74 03/05/18 08:00 Pulse Ox 95 03/05/18 08:00 Intake & Output 03/04/18 03/05/18 03/05/18 18:59 06:59 18:59 Intake Total 240 480 Output Total 1100 0 Balance -860 -2049 480 Weight 136.8 kg Intake: IV 0 Sodium Chloride 0.9% 1, 0 000 ml @ 20 mls/hr IV . Q24H RODRIGUEZ Rx#:[id number] Oral 240 480 Output: Urine 1100 2049 Other: Voiding Method Toilet Toilet Urinal Urinal # Voids 2 1 - Exam GENERAL: Well-appearing, well-nourished and in no acute distress. NECK: Supple without JVD or thyromegaly. LUNGS: Breath sounds clear to auscultation bilaterally. Respiration equal and unlabored. No wheezes, rales or rhonchi. HEART: Irregular rate and rhythm without murmurs, rubs or gallops. S1 and S2 heard. EXTREMITIES: Normal range of motion, 2+ bilateral lower extremity edema. No clubbing or cyanosis. Peripheral pulses intact. - Labs CBC & Chem 7: 03/05/18 06:44 03/05/18 06:44 Labs: Abnormal Lab Results - Last 24 Hours (Table) 03/04/18 03/04/18 03/05/18 Range/Units 16:14 20:52 06:05 WBC (3.8-10.6) k/uL RBC (4.30-5.90) m/uL Hgb (13.0-17.5) gm/dL Hct (39.0-53.0) % RDW (11.5-15.5) % Neutrophils # (1.3-7.7) k/uL Sodium (137-145) mmol/L Chloride (98-107) mmol/L Carbon Dioxide (22-30) mmol/L BUN (9-20) mg/dL Creatinine (0.66-1.25) mg/dL Glucose (74-99) mg/dL POC Glucose (mg/dL) 292 H 235 H 141 H (75-99) mg/dL Phosphorus (2.5-4.5) mg/dL 03/05/18 03/05/18 03/05/18 Range/Units 06:44 06:44 11:16 WBC 13.4 H (3.8-10.6) k/uL RBC 3.70 L (4.30-5.90) m/uL Hgb 10.5 L (13.0-17.5) gm/dL Hct 33.7 L (39.0-53.0) % RDW 17.6 H (11.5-15.5) % Neutrophils # 10.4 H (1.3-7.7) k/uL Sodium 136 L (137-145) mmol/L Chloride 84 L (98-107) mmol/L Carbon Dioxide 40 H* (22-30) mmol/L BUN 54 H (9-20) mg/dL Creatinine 1.41 H (0.66-1.25) mg/dL Glucose 114 H (74-99) mg/dL POC Glucose (mg/dL) 125 H (75-99) mg/dL Phosphorus 5.3 H (2.5-4.5) mg/dL Microbiology - Last 24 Hours (Table) 02/28/18 00:12 Blood Culture - Preliminary Blood No Growth after 120 hours Assessment and Plan Assessment: ASSESSMENT Chronic persistent atrial fibrillation on long-term anticoagulation Acute hypoxic respiratory failure Acute diastolic heart failure Pulmonary hypertension COPD Chronic kidney disease Diabetes mellitus PLAN Continue current medical regimen. Stable from a cardiac perspective. Follow-up with Dr. VC Hamlin in 2-3 weeks. Nurse Practitioner note has been reviewed, I agree with a documented findings and plan of care. Patient was seen and examined.
[2018-03-05 14:29] VITALS: BP 120/80
== END 2018-03-05 14:33 | DRG 871 ==
LOC: EC 22:02 → 6ICU 02-28 00:24 → 6SEL 03-01 15:57
PROVIDERS: ADMIT Family Medicine; ATTEND Family Medicine
PROC: 06HM33Z Insertion of Infusion Device into Right Femoral Vein, Percutaneous Approach (ICD-10-PCS; principal; 2018-02-27)
DX: A41.9 Sepsis, unspecified organism (principal); R65.21 Severe sepsis with septic shock; J96.22 Acute and chronic respiratory failure with hypercapnia; J96.21 Acute and chronic respiratory failure with hypoxia; N17.0 Acute kidney failure with tubular necrosis; I50.33 Acute on chronic diastolic (congestive) heart failure; J18.9 Pneumonia, unspecified organism; J98.11 Atelectasis; Z68.41 Body mass index [BMI] 40.0-44.9, adult; E66.01 Morbid (severe) obesity due to excess calories; I13.0 Hypertensive heart and chronic kidney disease with heart failure and stage 1 through stage 4 chronic kidney disease, or unspecified chronic kidney disease; J44.1 Chronic obstructive pulmonary disease with (acute) exacerbation; J44.0 Chronic obstructive pulmonary disease with (acute) lower respiratory infection; I27.20 Pulmonary hypertension, unspecified; E11.22 Type 2 diabetes mellitus with diabetic chronic kidney disease; E11.40 Type 2 diabetes mellitus with diabetic neuropathy, unspecified; I48.2 Chronic atrial fibrillation; G62.9 Polyneuropathy, unspecified; G25.81 Restless legs syndrome; G47.33 Obstructive sleep apnea (adult) (pediatric); I25.10 Atherosclerotic heart disease of native coronary artery without angina pectoris; G89.4 Chronic pain syndrome; G47.00 Insomnia, unspecified; M54.5 Low back pain; N18.2 Chronic kidney disease, stage 2 (mild); E78.5 Hyperlipidemia, unspecified; Y95 Nosocomial condition; K21.9 Gastro-esophageal reflux disease without esophagitis; H91.90 Unspecified hearing loss, unspecified ear; I25.2 Old myocardial infarction; F10.21 Alcohol dependence, in remission; F19.11 Other psychoactive substance abuse, in remission; Z99.81 Dependence on supplemental oxygen; Z79.01 Long term (current) use of anticoagulants; Z79.4 Long term (current) use of insulin; Z79.51 Long term (current) use of inhaled steroids; Z79.899 Other long term (current) drug therapy; Z77.098 Contact with and (suspected) exposure to other hazardous, chiefly nonmedicinal, chemicals; Z85.068 Personal history of other malignant neoplasm of small intestine; Z95.1 Presence of aortocoronary bypass graft; Z95.5 Presence of coronary angioplasty implant and graft; Z96.652 Presence of left artificial knee joint; Z89.422 Acquired absence of other left toe(s); Z98.1 Arthrodesis status; Z86.79 Personal history of other diseases of the circulatory system; Z87.891 Personal history of nicotine dependence; Z98.42 Cataract extraction status, left eye; Z98.41 Cataract extraction status, right eye; Z82.49 Family history of ischemic heart disease and other diseases of the circulatory system; Z82.69 Family history of other diseases of the musculoskeletal system and connective tissue
CPT/HCPCS: 36415; 36556; 36600; 71045; 71046; 80048; 80053; 81003; 82550; 82553; 82805; 83036; 83605; 83735; 83880; 84100; 84443; 84484; 85025; 85610; 85730; 87040; 87070; 87086; 87205; 93005; 94640; 94660; 94760; 96361; 96365; 99291

== ENCOUNTER 2018-05-14 17:27 | Inpatient (IN) | payer MEDICARE, OTHER ==
--- NOTE | 2018-05-14 18:17 | ED ---
General Adult HPI - General Chief complaint: Shortness of Breath Stated complaint: LANDY Time Seen by Provider: 05/14/18 17:40 Source: patient, RN notes reviewed Mode of arrival: ambulatory Limitations: no limitations - History of Present Illness Initial comments: This is a 68-year-old male with past medical history significant for COPD a bypass surgery and congestive heart failure. Patient was in a long-term today and he noted his breathing and be getting worse over the last couple of days and he has some exertional dyspnea today and so they decided to send the emergency department for further workup. Patient denies any chest pain or palpitations. Patient denies any fever chills or cough. Patient denies any headache patient denies numbness weakness per patient denies lightheadedness or dizziness. Patient denies any abdominal pain. Patient denies nausea vomiting or diarrhea. Patient states he was feeling pretty much at his baseline when they decided that he needed to come to the emergency department. Patient states swelling of his legs has been chronic and he hasn't noticed any increase. Staff however his sentiment for fluid overload potentially. - Related Data Home Medications Medication Instructions Recorded Confirmed Albuterol Inhaler [Ventolin Hfa 2 puff INHALATION RT-QID PRN 11/11/15 04/25/18 Inhaler] rOPINIRole HCL [Requip] 1.5 mg PO HS 11/12/17 04/25/18 Budesonide [Pulmicort] 1 mg INHALATION RT-BID 01/14/18 04/25/18 Ergocalciferol (Vitamin D2) 50,000 unit PO SA 01/14/18 04/25/18 [Vitamin D2] Simvastatin 40 mg PO HS@2100 01/14/18 04/25/18 Acetaminophen [Tylenol Arthritis] 650 mg PO Q4H PRN 02/28/18 04/25/18 Docusate [Colace] 100 mg PO BID@0800,1700 02/28/18 04/25/18 Ipratropium-Albuterol Nebulize 3 ml INHALATION RT-Q6H PRN 02/28/18 04/25/18 [Duoneb 0.5 mg-3 mg/3 ml Soln] Pantoprazole [Protonix] 40 mg PO DAILY@0600 02/28/18 04/25/18 Pregabalin [Lyrica] 150 mg PO DAILY 02/28/18 04/25/18 Rivaroxaban [Xarelto] 20 mg PO HS@1700 02/28/18 04/25/18 Previous Rx's Medication Instructions Recorded Tamsulosin [Flomax] 0.4 mg PO PC-BRKFST cap.er.24h 02/14/18 Insulin Detemir [Levemir] 25 unit SQ HS syr 03/05/18 Aspirin 81 mg PO DAILY chew 05/02/18 Furosemide [Lasix] 40 mg PO DAILY #30 tablet 05/02/18 HYDROcodone/APAP 5-325MG [[employer] 1 each PO Q6HR PRN #12 tab 05/02/18 5-325] Insulin Aspart [NovoLOG 0 unit SQ ACHS vial 05/02/18 (formulary)] Insulin Aspart [NovoLOG 12 unit SQ AC-BID@0730,1230 vial 05/02/18 (formulary)] Insulin Aspart [NovoLOG 15 unit SQ AC-SUPPER vial 05/02/18 (formulary)] Melatonin 6 mg PO HS tablet 05/02/18 Metoprolol Succinate (ER) [Toprol 75 mg PO DAILY tab.er.24h 05/02/18 XL] guaiFENesin [Mucinex] 1,200 mg PO Q12HR tablet.er 05/02/18 predniSONE 0 mg PO DIRECTED #40 tab 05/02/18 Allergies Allergy/AdvReac Type Severity Reaction Status Date / Time No Known Allergies Allergy Verified 05/14/18 17:53 Review of Systems ROS Statement: Those systems with pertinent positive or pertinent negative responses have been documented in the HPI. ROS Other: All systems not noted in ROS Statement are negative. Past Medical History Past Medical History: Atrial Fibrillation, Atrial Flutter, Coronary Artery Disease (CAD), Cancer, Chest Pain / Angina, Heart Failure, COPD, Diabetes Mellitus, GERD/Reflux, GI Bleed, Hearing Disorder / Deafness, Hyperlipidemia, Hypertension, Myocardial Infarction (SC), Renal Disease, Sleep Apnea/CPAP/BIPAP , Vascular Disorder Additional Past Medical History / Comment(s): Pt was recently at [facility] 02/09-02/11 with transfer to [facility] in [place]. Pt to [facility] December with transfer to [facility], was discharged from [facility] on Sunday, January 11, 2018 where he was treated for Afib RVR/ CHF and exacerbation of his COPD. 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 kidney failure Last Myocardial Infarction Date:: 1997 History of Any Multi-Drug Resistant Organisms: None Reported Past Surgical History: Back Surgery, Bowel Resection, Cardiac Ablation, Coronary Bypass/CABG, Heart Catheterization, Heart Catheterization With Stent, Joint Replacement, Orthopedic Surgery Additional Past Surgical History / Comment(s): FAVIAN, cardiac ablation, several cardiac caths, PCI with stents-total of 2007 CABG 3 vessel, 14 inches small bowel removed for cancerous tumor, partial L knee replacement, R leg vascular surgery, EGD/colonoscopy, endocapsule, L toe middle toe amp, low back fusion, bilateral cataract removals. Past Anesthesia/Blood Transfusion Reactions: No Reported Reaction Date of Last Stent Placement:: 1997 Past Psychological History: No Psychological Hx Reported Smoking Status: Former smoker Past Alcohol Use History: Rare Past Drug Use History: None Reported - Past Family History Father Family Medical History: Chest Pain / Angina, Coronary Artery Disease (CAD), Myocardial Infarction (SC) Additional Family Medical History / Comment(s): Father of a SC at the age of 54yrs. Brother(s) Family Medical History: Chest Pain / Angina, Coronary Artery Disease (CAD), Myocardial Infarction (SC) Additional Family Medical History / Comment(s): Brother had a SC at the age of 58 yrs. He is living. Son(s) Family Medical History: Musculoskeletal Disorder Mother Family Medical History: Vascular Disorder Additional Family Medical History / Comment(s): of brain aneurysm at age 34 General Exam - General Exam Comments Initial Comments: GENERAL: Patient is well-developed and well-nourished. Patient is nontoxic and well- hydrated and is in distress. ENT: Neck is soft and supple. No significant lymphadenopathy is noted. Oropharynx is clear. Moist mucous membranes. Neck has full range of motion without eliciting any pain. EYES: The sclera were anicteric and conjunctiva were pink and moist. Extraocular movements were intact and pupils were equal round and reactive to light. Eyelids were unremarkable. PULMONARY She has diminished breath sounds but no wheezing is noted crackles are heard CARDIOVASCULAR: She has no irregular heartbeat. ABDOMEN: Soft and nontender with normal bowel sounds. No palpable organomegaly was noted. There is no palpable pulsatile mass. SKIN: Skin is clear with no lesions or rashes and otherwise unremarkable. NEUROLOGIC: Patient is alert and oriented x3. Cranial nerves II through XII are grossly intact. Motor and sensory are also intact. Normal speech, volume and content. Symmetrical smile. MUSCULOSKELETAL: Normal extremities with adequate strength and full range of motion. Bilateral edema LYMPHATICS: No significant lymphadenopathy is noted PSYCHIATRIC: Normal psychiatric evaluation. Limitations: no limitations Course Vital Signs 05/14/18 05/14/18 05/14/18 17:37 17:39 18:29 Temperature 98.6 F Pulse Rate 106 H Respiratory 22 20 Rate Blood Pressure 106/69 O2 Sat by Pulse 87 L 90 L Oximetry 05/14/18 05/14/18 05/14/18 18:30 18:56 19:47 Temperature Pulse Rate 99 98 86 Respiratory 20 18 Rate Blood Pressure 90/50 119/61 132/81 O2 Sat by Pulse 95 95 Oximetry 05/14/18 20:30 Temperature Pulse Rate 106 H Respiratory 18 Rate Blood Pressure 92/68 O2 Sat by Pulse 98 Oximetry Medical Decision Making - Medical Decision Making EKG shows atrial fibrillation at a rate of 101 bpm QRS is 86 QT interval 340 QTC is 440. Patient's EKG shows no ST segment elevation or depression or T wave abnormalities are noted Chest x-ray shows pulmonary edema . Dr. Dsouza agreed to admit the patient admitted the patient I consult cardiology and pulmonary. I started the patient on Lasix in the emergency department continued on the floor. - Lab Data Result diagrams: 05/14/18 18:04 05/14/18 18:04 Lab Results 05/14/18 05/14/18 05/14/18 Range/Units 18:04 18:04 18:04 WBC 10.9 H (3.8-10.6) k/uL RBC 3.77 L (4.30-5.90) m/uL Hgb 10.7 L (13.0-17.5) gm/dL Hct 35.0 L (39.0-53.0) % MCV 92.9 (80.0-100.0) fL MCH 28.4 (25.0-35.0) pg MCHC 30.6 L (31.0-37.0) g/dL RDW 16.8 H (11.5-15.5) % Plt Count 211 (150-450) k/uL Neutrophils % 89 % Lymphocytes % 5 % Monocytes % 3 % Eosinophils % 1 % Basophils % 0 % Neutrophils # 9.7 H (1.3-7.7) k/uL Lymphocytes # 0.6 L (1.0-4.8) k/uL Monocytes # 0.3 (0-1.0) k/uL Eosinophils # 0.1 (0-0.7) k/uL Basophils # 0.0 (0-0.2) k/uL Hypochromasia Marked Poikilocytosis Slight Anisocytosis Slight PT (9.0-12.0) sec INR (<1.2) APTT (22.0-30.0) sec D-Dimer (<0.60) mg/L FEU Sodium 135 L (137-145) mmol/L Potassium 5.1 (3.5-5.1) mmol/L Chloride 91 L (98-107) mmol/L Carbon Dioxide 36 H (22-30) mmol/L Anion Gap 8 mmol/L BUN 30 H (9-20) mg/dL Creatinine 1.17 (0.66-1.25) mg/dL Est GFR (CKD-EPI)AfAm 74 (>60 ml/min/1.73 sqM) Est GFR (CKD-EPI)NonAf 64 (>60 ml/min/1.73 sqM) Glucose 218 H (74-99) mg/dL Calcium 8.6 (8.4-10.2) mg/dL Magnesium 2.0 (1.6-2.3) mg/dL Total Bilirubin 0.5 (0.2-1.3) mg/dL AST 21 (17-59) U/L ALT 30 (21-72) U/L Alkaline Phosphatase 91 (38-126) U/L Total Creatine Kinase 24 L (55-170) U/L CK-MB (CK-2) 1.8 (0.0-2.4) ng/mL CK-MB (CK-2) Rel Index 7.5 Troponin I <0.012 (0.000-0.034) ng/mL NT-Pro-B Natriuret Pep pg/mL Total Protein 5.9 L (6.3-8.2) g/dL Albumin 3.5 (3.5-5.0) g/dL 05/14/18 05/14/18 Range/Units 18:04 18:04 WBC (3.8-10.6) k/uL RBC (4.30-5.90) m/uL Hgb (13.0-17.5) gm/dL Hct (39.0-53.0) % MCV (80.0-100.0) fL MCH (25.0-35.0) pg MCHC (31.0-37.0) g/dL RDW (11.5-15.5) % Plt Count (150-450) k/uL Neutrophils % % Lymphocytes % % Monocytes % % Eosinophils % % Basophils % % Neutrophils # (1.3-7.7) k/uL Lymphocytes # (1.0-4.8) k/uL Monocytes # (0-1.0) k/uL Eosinophils # (0-0.7) k/uL Basophils # (0-0.2) k/uL Hypochromasia Poikilocytosis Anisocytosis PT 10.5 (9.0-12.0) sec INR 1.1 (<1.2) APTT 27.0 (22.0-30.0) sec D-Dimer 0.22 (<0.60) mg/L FEU Sodium (137-145) mmol/L Potassium (3.5-5.1) mmol/L Chloride (98-107) mmol/L Carbon Dioxide (22-30) mmol/L Anion Gap mmol/L BUN (9-20) mg/dL Creatinine (0.66-1.25) mg/dL Est GFR (CKD-EPI)AfAm (>60 ml/min/1.73 sqM) Est GFR (CKD-EPI)NonAf (>60 ml/min/1.73 sqM) Glucose (74-99) mg/dL Calcium (8.4-10.2) mg/dL Magnesium (1.6-2.3) mg/dL Total Bilirubin (0.2-1.3) mg/dL AST (17-59) U/L ALT (21-72) U/L Alkaline Phosphatase (38-126) U/L Total Creatine Kinase (55-170) U/L CK-MB (CK-2) (0.0-2.4) ng/mL CK-MB (CK-2) Rel Index Troponin I (0.000-0.034) ng/mL NT-Pro-B Natriuret Pep 1040 pg/mL Total Protein (6.3-8.2) g/dL Albumin (3.5-5.0) g/dL Disposition Clinical Impression: Acute pulmonary edema Disposition: ADMITTED IP TO THIS HOSP Referrals: Paulette Dsouza MD [Primary Care Provider] - 1-2 days Time of Disposition: 21:10
[2018-05-14 18:31] LABS: Anisocytosis Slight; Basophils % (A) 0 %; Eosinophils # (A) 0.1 k/uL (0-0.7); Eosinophils % (A) 1 %; HGB 10.7 gm/dL (13.0-17.5); Hypochromasia Marked; Lymphocytes # (A) 0.6 k/uL (1.0-4.8); Lymphocytes % (A) 5 %; MCH 28.4 pg (25.0-35.0); MCHC 30.6 g/dL (31.0-37.0); MCV 92.9 fL (80.0-100.0); Mean Platelet Volume 6.7; Monocytes # (A) 0.3 k/uL (0-1.0); Monocytes % (A) 3 %; Neutrophils # (A) 9.7 k/uL (1.3-7.7); Neutrophils % (A) 89 %; Platelet Count 211 k/uL (150-450); Poikilocytosis Slight; RBC 3.77 m/uL (4.30-5.90); RDW 16.8 % (11.5-15.5); WBC 10.9 k/uL (3.8-10.6)
[2018-05-14 18:40] LABS: D-Dimer 0.22 mg/L FEU (<0.60); INR 1.1 (<1.2); Prothrombin Time 10.5 sec (9.0-12.0)
[2018-05-14 18:46] LABS: Creatine Kinase 24 U/L (55-170)
[2018-05-14 18:48] LABS: Albumin 3.5 g/dL (3.5-5.0); Calcium 8.6 mg/dL (8.4-10.2); Potassium 5.1 mmol/L (3.5-5.1); Total Bilirubin 0.5 mg/dL (0.2-1.3); Total Protein 5.9 g/dL (6.3-8.2)
[2018-05-14] MEDS: FUROSEMIDE 10 MG/ML 4 ML VIAL IV STA ×2 (18:57→19:00)
[2018-05-14 18:59] LABS: Creatine Kinase MB 1.8 ng/mL (0.0-2.4); Troponin I <0.012 ng/mL (0.000-0.034)
--- NOTE | 2018-05-14 19:59 | XR ---
EXAMINATION: XR chest 2V DATE AND TIME: 05/14/2018 6:47 PM CLINICAL INDICATION: difficulty breathing TECHNIQUE: PA and 2 lateral COMPARISON: 04/30/2018 FINDINGS: The pulmonary vasculature silhouetted bilaterally, consistent with interstitial phase pulmonary edema . There are no pulmonary consolidations evident. The pleural spaces are negative. Dural sutures and mediastinal clips and EKG leads noted. The cardiac silhouette is markedly enlarged, unchanged. The skeletal structures and soft tissues are negative for acute findings. IMPRESSION: Radiographic evidence of interstitial phase pulmonary edema, presumably cardiogenic etiology.
[2018-05-14] MEDS: FUROSEMIDE 10 MG/ML 4 ML VIAL IV SCH (23:07)
[2018-05-15] MEDS: PANTOPRAZOLE 40 MG TABLET PO SCH (06:41)
[2018-05-15] MEDS: FUROSEMIDE 10 MG/ML 4 ML VIAL IV SCH (06:41)
[2018-05-15 06:58] LABS: Glucose,Whole Blood 173 mg/dL (75-99)
[2018-05-15 07:01] LABS: Anisocytosis Slight; Basophils % (A) 0 %; Eosinophils # (A) 0.2 k/uL (0-0.7); Eosinophils % (A) 2 %; HGB 10.5 gm/dL (13.0-17.5); Hypochromasia Moderate; Lymphocytes # (A) 1.1 k/uL (1.0-4.8); Lymphocytes % (A) 12 %; MCH 29.3 pg (25.0-35.0); MCHC 31.9 g/dL (31.0-37.0); MCV 91.8 fL (80.0-100.0); Monocytes # (A) 0.3 k/uL (0-1.0); Monocytes % (A) 3 %; Neutrophils # (A) 7.7 k/uL (1.3-7.7); Neutrophils % (A) 81 %; Platelet Count 221 k/uL (150-450); Poikilocytosis Slight; RDW 16.7 % (11.5-15.5); WBC 9.5 k/uL (3.8-10.6)
[2018-05-15] MEDS: BUDESONIDE 1 MG/2 ML NEBU INHALATION SCH ×2 (07:13→19:31)
[2018-05-15] MEDS: IPRATROPIUM-ALBUTEROL 3 ML NEB INHALATION SCH ×4 (07:13→19:31)
[2018-05-15 07:29] LABS: Albumin 3.2 g/dL (3.5-5.0); Calcium 8.5 mg/dL (8.4-10.2); Magnesium 1.9 mg/dL (1.6-2.3); Potassium 4.4 mmol/L (3.5-5.1); Total Bilirubin 0.4 mg/dL (0.2-1.3); Total Protein 5.5 g/dL (6.3-8.2)
[2018-05-15] MEDS: INSULIN ASPART 100 UNIT/ML 1 ML 10 ML VIAL SQ SCH ×7 (07:50→21:01)
[2018-05-15] MEDS: ASPIRIN 81 MG PO SCH (08:08)
[2018-05-15] MEDS: TAMSULOSIN 0.4 MG CAP.ER.24H PO SCH (08:08)
[2018-05-15] MEDS: SACUBITRIL/VALSARTAN 24 MG-26 MG TABLET PO SCH ×2 (08:49→21:00)
[2018-05-15] MEDS: METOPROLOL SUCCINATE (ER) 50 MG TAB.ER.24H PO SCH (08:49)
[2018-05-15] MEDS: guaiFENesin 600 MG TABLET.ER PO SCH ×2 (08:49→20:09)
[2018-05-15] MEDS ORDERED: SPIRONOLACTONE 25 MG TAB PO SCH (09:00)
--- NOTE | 2018-05-15 11:11 | P.CRDCN ---
History of Present Illness Consult date: 05/15/18 Consult reason: congestive heart failure History of present illness: mr. Styles is a 68-year-old gentleman who is seen for cardiac evaluation this patient's emergency medical records as well as old charts reviewed. Patient's [facility] the [facility]. Patient has been having increasing shortness of breath over the last 2-3 days. He has also noticed the swelling in the legs. Cording to him he probably gained 20 pounds of weight. His and denies any significant cough with expectoration. This patient has a known history of coronary artery disease with a coronary artery bypass surgery and history of systolic and diastolic dysfunction with a moderate to severe COPD and has had recurrent admissions in the past for congestive cardiac failure. He has a history of for persistent atrial flutter fibrillation with the status post ablation. Recent has been evaluated [facility] in the past. His and patient's is sitting comfortably in the bed without any respiratory distress. Denies any fluttering or palpitations. Past Medical History Past Medical History: Atrial Fibrillation, Atrial Flutter, Coronary Artery Disease (CAD), Cancer, Chest Pain / Angina, Heart Failure, COPD, Diabetes Mellitus, GERD/Reflux, GI Bleed, Hearing Disorder / Deafness, Hyperlipidemia, Hypertension, Myocardial Infarction (OK), Renal Disease, Sleep Apnea/CPAP/BIPAP , Vascular Disorder Additional Past Medical History / Comment(s): Pt was recently at [facility] 02/09-02/11 with transfer to [facility] in [place]. Pt to [facility] December with transfer to [facility], was discharged from [facility] on Sunday, January 11, 2018 where he was treated for Afib RVR/ CHF and exacerbation of his COPD. 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 kidney failure Last Myocardial Infarction Date:: 1997 History of Any Multi-Drug Resistant Organisms: None Reported Past Surgical History: Back Surgery, Bowel Resection, Cardiac Ablation, Coronary Bypass/CABG, Heart Catheterization, Heart Catheterization With Stent, Joint Replacement, Orthopedic Surgery Additional Past Surgical History / Comment(s): FAVIAN, cardiac ablation, several cardiac caths, PCI with stents-total of 2007 CABG 3 vessel, 14 inches small bowel removed for cancerous tumor, partial L knee replacement, R leg vascular surgery, EGD/colonoscopy, endocapsule, L toe middle toe amp, low back fusion, bilateral cataract removals. Past Anesthesia/Blood Transfusion Reactions: No Reported Reaction Date of Last Stent Placement:: 1997 Past Psychological History: No Psychological Hx Reported Additional Psychological History / Comment(s): Pt resides with his spouse of 16 years. He has difficulty sleeping-gets maybe 3 hours per night. 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 Pt lives in single level home w/4 porch steps. No home care services. Has home 02 2 liters n/c which he now wears ATC. He has a glucometer. Smoking Status: Former smoker Past Alcohol Use History: Rare Additional Past Alcohol Use History / Comment(s): Pt started smoking in 1962 and quit in 2004. He is a recovering alcoholic and quit drinking in 1981 Past Drug Use History: None Reported Additional Drug Use History / Comment(s): remote history of trial of recreational drugs in 1969, none since - Past Family History Father Family Medical History: Chest Pain / Angina, Coronary Artery Disease (CAD), Myocardial Infarction (OK) Additional Family Medical History / Comment(s): Father of a OK at the age of 54yrs. Brother(s) Family Medical History: Chest Pain / Angina, Coronary Artery Disease (CAD), Myocardial Infarction (OK) Additional Family Medical History / Comment(s): Brother had a OK at the age of 58 yrs. He is living. Son(s) Family Medical History: Musculoskeletal Disorder Mother Family Medical History: Vascular Disorder Additional Family Medical History / Comment(s): of brain aneurysm at age 34 Medications and Allergies Home Medications Medication Instructions Recorded Confirmed Type rOPINIRole HCL [Requip] 1.5 mg PO HS 11/12/17 05/15/18 History Budesonide [Pulmicort] 1 mg INHALATION RT-BID 01/14/18 05/15/18 History Ergocalciferol (Vitamin D2) 50,000 unit PO SA 01/14/18 05/15/18 History [Vitamin D2] Tamsulosin [Flomax] 0.4 mg PO PC-BRKFST cap.er.24h 02/14/18 05/15/18 Rx Pantoprazole [Protonix] 40 mg PO DAILY@0600 02/28/18 05/15/18 History Rivaroxaban [Xarelto] 20 mg PO HS@1700 02/28/18 05/15/18 History Albuterol Inhaler [Ventolin Hfa 2 puff INHALATION RT-Q4H 05/15/18 05/15/18 History Inhaler] Albuterol Nebulized [Ventolin 2.5 mg INHALATION RT-Q4H 05/15/18 05/15/18 History Nebulized] Apixaban [Eliquis] 5 mg PO BID 05/15/18 05/15/18 History Bumetanide [BUMEX] 1 mg PO BID 05/15/18 05/15/18 History Dofetilide [Tikosyn] 500 mg PO BID 05/15/18 05/15/18 History Insulin Aspart [NovoLOG] 10 - 14 units SQ AC-TID 05/15/18 05/15/18 History Insulin Detemir [Levemir] 10 unit SQ HS 05/15/18 05/15/18 History Lidocaine [Lidoderm 5% Patch] 1 patch TOPICAL Q12HR 05/15/18 05/15/18 History Metolazone [Zaroxolyn] 2.5 mg PO MOWEFR 05/15/18 05/15/18 History Metoprolol Succinate [Toprol Xl] 50 mg PO DAILY 05/15/18 05/15/18 History Naloxone HCl [Narcan] 4 mg EA NOSTRIL DIRECTED 05/15/18 05/15/18 History Naproxen Sodium [Aleve] 220 mg PO DAILY 05/15/18 05/15/18 History Pregabalin [Lyrica] 150 mg PO PC-SUPPER 05/15/18 05/15/18 History Pregabalin [Lyrica] 300 mg PO DAILY 05/15/18 05/15/18 History Sacubitril/Valsartan [Entresto 49 1 tab PO BID 05/15/18 05/15/18 History mg-51 mg Tablet] Spironolactone [Aldactone] 25 mg PO BID 05/15/18 05/15/18 History guaiFENesin 400 mg PO TID 05/15/18 05/15/18 History oxyCODONE HCL [Roxicodone] 15 mg PO AC-LUNCH 05/15/18 05/15/18 History oxyCODONE HCL [Roxicodone] 20 mg PO BID 05/15/18 05/15/18 History Allergies Allergy/AdvReac Type Severity Reaction Status Date / Time No Known Allergies Allergy Verified 05/15/18 09:55 Physical Exam Vitals: Vital Signs Temp Pulse Pulse Resp BP BP Pulse Ox 05/15/18 10:59 100 05/15/18 10:46 100 05/15/18 08:00 98.7 F 135 H 18 110/67 95 05/15/18 07:28 137 H 05/15/18 07:14 128 H 05/15/18 00:00 97.6 F 123 H 17 116/66 92 L 05/14/18 23:04 97.4 F L 116 H 18 105/77 97 05/14/18 20:30 106 H 18 92/68 98 05/14/18 19:47 86 18 132/81 95 05/14/18 18:56 98 119/61 05/14/18 18:30 99 20 90/50 95 05/14/18 18:29 20 05/14/18 17:39 98.6 F 106 H 22 106/69 90 L 05/14/18 17:37 87 L Intake and Output 05/14/18 05/15/18 05/15/18 22:59 06:59 14:59 Output Total 200 Balance -200 Output: Urine 200 Other: Voiding Method Urinal Weight 148.778 kg patient is obesely built is not in any acute respiratory distress. Patient's vital signs are reviewed. The patient is alert awake and in no acute distress. HEENT negative. Neck-supple JVP is elevated. Chest-symmetrical. Heart-first and second heart sounds are normal. No S3 or S4 is noted. No significant murmurs are noted. Lungs bilateral good at entry is noted. bilateral basal rales are noted with few scattered wheezes Abdomen-soft. Liver and spleen are not enlarged. The bowel sounds are normal. No tenderness noted Extremities-peripheral pulses since are 2+. 2-3+ edema noted. Neuro-no significant gross abnormality noted. Results 05/15/18 06:28 05/15/18 06:28 Cardiac Enzymes 05/14/18 05/14/18 05/15/18 Range/Units 18:04 18:04 06:28 AST 21 14 L (17-59) U/L CK-MB (CK-2) 1.8 (0.0-2.4) ng/mL Troponin I <0.012 (0.000-0.034) ng/mL Coagulation 05/14/18 Range/Units 18:04 PT 10.5 (9.0-12.0) sec APTT 27.0 (22.0-30.0) sec CBC 05/14/18 05/15/18 Range/Units 18: 06:28 WBC 10.9 H 9.5 (3.8-10.6) k/uL RBC 3.77 L 3.60 L (4.30-5.90) m/uL Hgb 10.7 L 10.5 L (13.0-17.5) gm/dL Hct 35.0 L 33.0 L (39.0-53.0) % Plt Count 211 221 (150-450) k/uL Comprehensive Metabolic Panel 05/14/18 05/15/18 Range/Units 18:04 06:28 Sodium 135 L 137 (137-145) mmol/L Potassium 5.1 4.4 (3.5-5.1) mmol/L Chloride 91 L 90 L (98-107) mmol/L Carbon Dioxide 36 H 40 H (22-30) mmol/L BUN 30 H 28 H (9-20) mg/dL Creatinine 1.17 1.08 (0.66-1.25) mg/dL Glucose 218 H 158 H (74-99) mg/dL Calcium 8.6 8.5 (8.4-10.2) mg/dL AST 21 14 L (17-59) U/L ALT 30 28 (21-72) U/L Alkaline Phosphatase 91 80 (38-126) U/L Total Protein 5.9 L 5.5 L (6.3-8.2) g/dL Albumin 3.5 3.2 L (3.5-5.0) g/dL Current Medications Generic Name Dose Route Start Last Admin Trade Name Freq PRN Reason Stop Dose Admin Acetaminophen 650 mg 05/15/18 04:00 Tylenol Tab PO Q4H PRN Pain Hydrocodone Bitart/Acetaminophen 1 each 05/15/18 04:00 [place] 5-325 PO Q6HR PRN Pain Albuterol/Ipratropium 3 ml 05/15/18 08:00 05/15/18 10:46 Duoneb 0.5 Mg-3 Mg/3 Ml Soln INHALATION 3 ml RT-QID [facility]ODRIGUEZ Administration Aspirin 81 mg 05/15/18 09:00 05/15/18 08:08 Aspirin PO 81 mg DAILY [facility] Administration Atorvastatin Calcium 20 mg 05/15/18 21:00 Lipitor PO HS@2100 [facility] Budesonide 1 mg 05/15/18 08:00 05/15/18 07:13 Pulmicort INHALATION 1 mg RT-BID [facility] Administration Guaifenesin 1,200 mg 05/15/18 09:00 05/15/18 08:49 Mucinex PO 1,200 mg Q12HR RODRIGUEZ Administration Insulin Aspart 0 unit 05/15/18 07:30 05/15/18 07:50 Novolog SQ 3 unit ACHS [facility] Administration Protocol Insulin Aspart 12 unit 05/15/18 07:30 05/15/18 07:50 Novolog SQ 12 unit AC-BID@0730,1230 [facility] Administration Insulin Aspart 15 unit 05/15/18 17:30 Novolog SQ AC-SUPPER [facility] Insulin Detemir 32 unit 05/15/18 21:00 Levemir SQ HS [facility] Melatonin 6 mg 05/15/18 21:00 Melatonin PO HS [facility] Metolazone 2.5 mg 05/15/18 11:15 Zaroxolyn PO DAILY [facility] Metoprolol Succinate 100 mg 05/15/18 09:00 05/15/18 08:49 Toprol Xl PO 100 mg DAILY [facility] Administration Pantoprazole Sodium 40 mg 05/15/18 06:00 05/15/18 06:41 Protonix PO 40 mg DAILY@0600 [facility] Administration Pregabalin 150 mg 05/15/18 09:00 Lyrica PO DAILY [facility] Rivaroxaban 20 mg 05/15/18 17:00 Xarelto PO DAILY@1700 [facility] Ropinirole HCl 1.5 mg 05/15/18 21:00 Requip PO HS [facility] Sacubitril/Valsartan 1 each 05/15/18 09:00 05/15/18 08:49 Entresto 24 Mg-26 Mg Tablet PO 1 each BID [facility] Administration Spironolactone 50 mg 05/15/18 11:15 Aldactone PO BID [facility] Tamsulosin HCl 0.4 mg 05/15/18 08:30 05/15/18 08:08 Flomax PO 0.4 mg PC-BRKFST [facility] Administration Intake and Output 05/14/18 05/15/18 05/15/18 22:59 06:59 14:59 Output Total 200 Balance -200 Output: Urine 200 Other: Voiding Method Urinal Weight 148.778 kg 05/15/18 06:28 05/15/18 06:28 EKG Interpretations (text) eKG shows atrial fibrillation with a controlled response. Assessment and Plan Assessment: this patient is admitted with acute on chronic systolic and diastolic failure. And also has a moderate to severe degree of COPD patient has a atrial fibrillation with a controlled ventricular rate. We will aggressively diurese the patient with the Lasix drip and added Zaroxolyn 2.5 mg daily. Aldactone will be increased to 50 mg twice a day.
[2018-05-15] MEDS ORDERED: SPIRONOLACTONE 25 MG TAB PO ONE (11:15)
[2018-05-15 11:47] LABS: Glucose,Whole Blood 160 mg/dL (75-99)
[2018-05-15] MEDS: PREGABALIN 75 MG CAP PO SCH (12:27)
[2018-05-15] MEDS: METOLAZONE 2.5 MG TAB PO SCH (12:53)
--- NOTE | 2018-05-15 13:21 | P.HPIM ---
History of Present Illness H&P Date: 05/15/18 Chief Complaint: Acute systolic heart failure/Respiratory failure. This is a 68-year-old male one of my patient wih known history of chronic hypercapnic and hypoxemic respiratory failure, advanced COPD with moderate pulmonary hypertension, known paroxysmal atrial fibrillation/ Flutter on long-term anticoagulation, chronic systolic heart heart failure with a recent EF 40% , restless leg, diabetes mellitus type 2, with diabetic polyneuropathy, patient was recently hospitalized at [facility] from till 05/03/2018 after he was admitted for acute hypercapneic and hypoxemic respiratory failure and acute systolic heart failure and he was sent to [facility] for PT and OT , I was following the patient very closely at [facility] and I was seening him twice per week and he was given multiple injectinons of lasix due to sudden ncrease in his weight and he was plced on CPAP most of the time, yeasterday went to [facility] him and he was in respiratory failure with mental status changes, and he was given Lasix 80 mg IM , along with his scheduled dose of Bumex and spironolactone , along with entresto without much help, EMS was called and he was sent to the ER at [facility] were he was found to have Pulmonary edema, he was started on Lasix 40 mg IV Q 8 H along with Entresto and Toprol, spironolactone, and patient was admitted to the hospital, cardiology consultation was obtained as welll as Pulmonary consult. Patient was seen by earlier in April and had a DCG and he was supposed to have a follow up with him regarding the treatment of A.Flutter but he never connected with him since he ended in the hospital in April 25 . we really need to find what was the result of the Holter that he had and try to intervene in A.Flutter management otherwise he will continue to have recurrent hospital admission due to decompensation of his systolic heart failure. Review of Systems Constitutional: Reports chronic pain, Reports daytime sleepiness, Reports fatigue, Reports lethargy, Reports weakness, Reports weight gain Eyes: denies blurred vision, denies bulging eye, denies decreased vision Ears: bilateral: decreased hearing Ears, nose, mouth and throat: Denies dysphagia, Denies neck lump, Denies sore throat, Denies vertigo Cardiovascular: Reports decreased exercise tolerance, Reports dyspnea on exertion, Reports edema, Reports high blood pressure, Reports irregular heart beat, Reports leg edema, Reports orthopnea, Reports palpitations, Reports paroxysmal nocturnal dyspnea, Reports rapid heart beat, Reports shortness of breath, Denies chest pain Respiratory: Reports congestion, Reports cough, Reports cough with sputum, Reports home oxygen, Reports sleep apnea, Reports snoring, Reports wheezing Gastrointestinal: Reports bloating, Reports constipation, Denies abdominal pain , Denies change in bowel habits, Denies diarrhea, Denies excessive gas, Denies heartburn, Denies melena, Denies nausea, Denies vomiting Genitourinary: Reports nocturia, Denies discharge, Denies dysuria Musculoskeletal: Reports gait dysfunction, Reports leg numbness/tingling, Reports low back pain, Reports myalgias Musculoskeletal: bilateral: ankle swelling, foot swelling, absent: ankle pain, ankle stiffness, elbow pain, elbow stiffness, elbow swelling, foot pain, foot stiffness, hand pain, hand stiffness, hand swelling, hip pain, hip stiffness, hip swelling, knee pain, knee stiffness, knee swelling, shoulder pain, shoulder stiffness, shoulder swelling, wrist pain, wrist stiffness, wrist swelling Integumentary: Denies pruritus, Denies rash Neurological: Reports balance difficulties, Reports burning pain, Reports gait dysfunction, Reports numbness, Reports weakness Psychiatric: Reports anxiety, Reports confusion, Reports depression, Reports hypersomnia Endocrine: Reports deepening of the voice, Reports fatigue, Reports nocturia, Reports palpitations, Reports recent glucocorticoid use, Reports weight change Past Medical History Past Medical History: Atrial Fibrillation, Atrial Flutter, Coronary Artery Disease (CAD), Cancer, Chest Pain / Angina, Heart Failure, COPD, Diabetes Mellitus, GERD/Reflux, GI Bleed, Hearing Disorder / Deafness, Hyperlipidemia, Hypertension, Myocardial Infarction (ID), Renal Disease, Sleep Apnea/CPAP/BIPAP , Vascular Disorder Additional Past Medical History / Comment(s): Pt was recently at [facility] 02/09-02/11 with transfer to [facility] in [place]. Pt to [facility] December with transfer to [facility], was discharged from [facility] on Sunday, January 11, 2018 where he was treated for Afib RVR/ CHF and exacerbation of his COPD. 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 kidney failure Last Myocardial Infarction Date:: 1997 History of Any Multi-Drug Resistant Organisms: None Reported Past Surgical History: Back Surgery, Bowel Resection, Cardiac Ablation, Coronary Bypass/CABG, Heart Catheterization, Heart Catheterization With Stent, Joint Replacement, Orthopedic Surgery Additional Past Surgical History / Comment(s): FAVIAN, cardiac ablation, several cardiac caths, PCI with stents-total of 2007 CABG 3 vessel, 14 inches small bowel removed for cancerous tumor, partial L knee replacement, R leg vascular surgery, EGD/colonoscopy, endocapsule, L toe middle toe amp, low back fusion, bilateral cataract removals. Past Anesthesia/Blood Transfusion Reactions: No Reported Reaction Date of Last Stent Placement:: 1997 Past Psychological History: No Psychological Hx Reported Smoking Status: Former smoker Past Alcohol Use History: Rare Past Drug Use History: None Reported - Past Family History Father Family Medical History: Chest Pain / Angina, Coronary Artery Disease (CAD), Myocardial Infarction (ID) Additional Family Medical History / Comment(s): Father of a ID at the age of 54yrs. Brother(s) Family Medical History: Chest Pain / Angina, Coronary Artery Disease (CAD), Myocardial Infarction (ID) Additional Family Medical History / Comment(s): Brother had a ID at the age of 58 yrs. He is living. Son(s) Family Medical History: Musculoskeletal Disorder Mother Family Medical History: Vascular Disorder Additional Family Medical History / Comment(s): of brain aneurysm at age 34 Medications and Allergies Home Medications Medication Instructions Recorded Confirmed Type Albuterol Inhaler [Ventolin Hfa 2 puff INHALATION RT-QID PRN 11/11/15 05/15/18 History Inhaler] rOPINIRole HCL [Requip] 1.5 mg PO HS 11/12/17 05/15/18 History Budesonide [Pulmicort] 1 mg INHALATION RT-BID 01/14/18 05/15/18 History Ergocalciferol (Vitamin D2) 50,000 unit PO SA 01/14/18 05/15/18 History [Vitamin D2] Simvastatin 40 mg PO HS@2100 01/14/18 05/15/18 History Tamsulosin [Flomax] 0.4 mg PO PC-BRKFST cap.er.24h 02/14/18 05/15/18 Rx Acetaminophen [Tylenol Arthritis] 650 mg PO Q4H PRN 02/28/18 05/15/18 History Docusate [Colace] 100 mg PO BID@0800,1700 02/28/18 05/15/18 History Ipratropium-Albuterol Nebulize 3 ml INHALATION RT-Q6H PRN 02/28/18 05/15/18 History [Duoneb 0.5 mg-3 mg/3 ml Soln] Pantoprazole [Protonix] 40 mg PO DAILY@0600 02/28/18 05/15/18 History Pregabalin [Lyrica] 150 mg PO DAILY 02/28/18 05/15/18 History Rivaroxaban [Xarelto] 20 mg PO HS@1700 02/28/18 05/15/18 History Insulin Detemir [Levemir] 25 unit SQ HS syr 03/05/18 05/15/18 Rx Aspirin 81 mg PO DAILY chew 05/02/18 05/15/18 Rx Furosemide [Lasix] 40 mg PO DAILY #30 tablet 05/02/18 05/15/18 Rx HYDROcodone/APAP 5-325MG [[place] 1 each PO Q6HR PRN #12 tab 05/02/18 05/15/18 Rx 5-325] Insulin Aspart [NovoLOG 0 unit SQ ACHS vial 05/02/18 05/15/18 Rx (formulary)] Insulin Aspart [NovoLOG 12 unit SQ AC-BID@0730,1230 vial 05/02/18 05/15/18 Rx (formulary)] Insulin Aspart [NovoLOG 15 unit SQ AC-SUPPER vial 05/02/18 05/15/18 Rx (formulary)] Melatonin 6 mg PO HS tablet 05/02/18 05/15/18 Rx guaiFENesin [Mucinex] 1,200 mg PO Q12HR tablet.er 05/02/18 05/15/18 Rx predniSONE 0 mg PO DIRECTED #40 tab 05/02/18 05/15/18 Rx Metoprolol Succinate (ER) [Toprol 100 mg PO DAILY 05/15/18 05/15/18 History XL] Allergies Allergy/AdvReac Type Severity Reaction Status Date / Time No Known Allergies Allergy Verified 05/14/18 17:53 Physical Exam Vitals: Vital Signs Temp Pulse Pulse Resp BP BP Pulse Ox 05/15/18 00:00 97.6 F 123 H 17 116/66 92 L 05/14/18 23:04 97.4 F L 116 H 18 105/77 97 05/14/18 20:30 106 H 18 92/68 98 05/14/18 19:47 86 18 132/81 95 05/14/18 18:56 98 119/61 05/14/18 18:30 99 20 90/50 95 05/14/18 18:29 20 05/14/18 17:39 98.6 F 106 H 22 106/69 90 L 05/14/18 17:37 87 L Intake and Output 05/14/18 05/14/18 05/15/18 14:59 22:59 06:59 Output Total 200 Balance -200 Output: Urine 200 Other: Voiding Method Urinal Weight 148.778 kg - Constitutional General appearance: mild distress, obese - EENT Eyes: anicteric sclerae, EOMI, PERRLA, no ptosis, no scleral icterus, normal appearance ENT: hard of hearing, NA/AT, normal oropharynx, no thrush Ears: bilateral: normal - Neck Neck: no lymphadenopathy, normal ROM, no rigidity, no stridor, no thyromegaly Carotids: bilateral: upstroke normal Thyroid: bilateral: normal size - Respiratory Respiratory: bilateral: diminished, negative: dullness, rales, rhonchi, wheezing , prolonged expiration - Cardiovascular Rhythm: irregularly irregular Heart sounds: normal: S1, S2 Abnormal Heart Sounds: systolic murmur - Gastrointestinal General gastrointestinal: distended, hyperactive bowel sounds, soft, no tenderness, no umbilical hernia, no ventral hernia - Integumentary Integumentary: normal, normal turgor - Neurologic Neurologic: CNII-XII intact - Musculoskeletal Musculoskeletal: generalized weakness, strength equal bilaterally - Psychiatric Psychiatric: A&O x's 3, appropriate affect, intact judgment & insight Results CBC & Chem 7: 05/14/18 18:04 05/14/18 18:04 Labs: Abnormal Lab Results - Last 24 Hours (Table) 05/14/18 05/14/18 05/14/18 Range/Units 18:04 18:04 18:04 WBC 10.9 H (3.8-10.6) k/uL RBC 3.77 L (4.30-5.90) m/uL Hgb 10.7 L (13.0-17.5) gm/dL Hct 35.0 L (39.0-53.0) % MCHC 30.6 L (31.0-37.0) g/dL RDW 16.8 H (11.5-15.5) % Neutrophils # 9.7 H (1.3-7.7) k/uL Lymphocytes # 0.6 L (1.0-4.8) k/uL Sodium 135 L (137-145) mmol/L Chloride 91 L (98-107) mmol/L Carbon Dioxide 36 H (22-30) mmol/L BUN 30 H (9-20) mg/dL Glucose 218 H (74-99) mg/dL Total Creatine Kinase 24 L (55-170) U/L Total Protein 5.9 L (6.3-8.2) g/dL Thrombosis Risk Factor Assmnt - DVT/VTE Prophylaxis DVT/VTE Prophylaxis: Pharmacologic Prophylaxis ordered, Mechanical Prophylaxis ordered Assessment and Plan Assessment: Assessment and Plan: 1. Acute systolic heart failure. we will continue with lasix 40 mg IVP Q 8H , spironolactone 25 mg orally bid, Entresto 24/26 mg orally bid and Metoprolol 100 mg orally daily, we will continue with fluid restriction 1500 ml daily, daily weight, and heart failure education may need LVAD if no improvement. 2. Chronic hypercapneic and hypoxemic respiratory failure. we will continue with CPAP, O2 and duoneb 3m NEB QID along with pulmicort 1 mg NEB bid. Pulmonary consult. 3. Advanced COPD. we will continue with Neb Rx as above. 4. Atrial fibrillation/Flutter. we will continue with Metoprolol 100 mg orally daily and Xarelto 20 mg orally daily, cardiology evaluation and try to get the result of the DCG that was done as outpatient with . 5. Hypertension and hypertensive cardiovascular disease. we will continue with Metoprolol 100 mg orally daily and Entresto 24/26 mg orally daily. 6. Diabetes Mellitus type 2 uncontrolled. will increase Levemir to 35 units sc qhs and will continue with Novolog 15 units AC meals tid, along with SSI, we will continue with CCA 1800 diet and BGM AC meals and at bedtime. 7. Diabetic polyneuropathy. we will contiue with Lyrica 150 mg orally qhs. 8. Restless leg syndrome. we will continue with Requip 1.5 mg orally at bedtime. 9. Hyperlipidemia. we will continue with Lipitor 20 mg orally daily. 10. Obestiy with PEDRO and OHS. we will continue with CPAP, may need his mask adjusted we will call [facility] to reevaluate. 11. Vitamin D deficiency. we will continue with vit D q week. 12. GERD . will continue with Protonix 40 mg orally daily. 13.BPH. we will continue with Flomax 0.4 mg orally daily. 14. DVT prophylaxis. we will continue with Xarelto 20 mg orally daily. 15. GI prophylaxis. we will continue with PPI. 16. Full code. 17. Admits to inpatient. Estimated length of stay 2 midnights.
--- NOTE | 2018-05-15 15:20 | XR ---
EXAMINATION TYPE: XR chest 1V DATE OF EXAM: 05/15/2018 COMPARISON: Prior chest x-ray 05/14/2018 HISTORY: Congestive heart failure TECHNIQUE: Single frontal view of the chest is obtained. FINDINGS: Patient is post median sternotomy. The heart is markedly enlarged. Central vascularity is prominent, the interstitium thought to be increased. Technique is somewhat limited. No evident pneumo thorax or evident effusion. Mediastinum appears widened as on prior. IMPRESSION: Exam is limited technically. Correlate for possible pulmonary venous hypertension and in terstitial edema. Follow-up PA and lateral chest x-ray be of benefit.
[2018-05-15 17:07] LABS: Glucose,Whole Blood 139 mg/dL (75-99)
--- NOTE | 2018-05-15 17:59 | P.CNPUL ---
History of Present Illness Consult date: 05/15/18 Requesting physician: Paulette Dsouza Reason for consult: dyspnea Chief complaint: Shortness of breath History of present illness: 68-year-old male patient is well-known to me who comes in again to the hospital because of worsening shortness of breath. The patient came into the ED for increased dyspnea over the past few days. He has also noted some increased swelling lower oximetry is bilaterally. According to him has gained around additional 20 pounds above and beyond his baseline. I went and looked at the records and the patient has gained significant amount of weight since summer. He denies having any significant cough or sputum production. No chest pain. He is known to have multiple medical problems and comorbidities as mentioned earlier in the medical records. Upon arrival to the hospital, the patient was also in atrial fibrillation she has been in a chronic basis and his heart rate was 101.. His white cell count is not elevated. His renal function is within normal limits. His correlation profile is also within normal limits. The BNP level is at 1040. First is of cardiac enzymes was negative. The patient currently is on a combination of Zaroxolyn 2.5 mg by mouth daily, Aldactone 50 Bmouth twice a day and he is also on metoprolol 100 mg by mouth daily and Entresto 24/26 one tablet daily and he is also on long-term medical condition with Xarelto. In terms of medical problems and comorbidities, the patient is morbidly obese and he has a BMI of 44.5. He has untreated obstructive sleep apnea as the patient was unable to tolerate CPAP therapy. He is known to have chronic atrial fibrillation. He has COPD, moderate degree of pulmonary hypertension, chronic atrial fibrillation, chronic systolic heart failure with an ejection fraction of 40%, diabetes mellitus type 2, diabetic peripheral neuropathy, restless leg syndrome, patient also has history of coronary artery disease. He has been forced SC on multiple occasions. His undergone coronary artery bypass surgery. 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 Follow-up CAT scan of the abdomen and pelvis was done last month did not show any recurrent tumor within the abdomen. His been disease free since his surgery. He is known to have chronic diverticular disease. He has also chronic pain/back pain. Patient is seen today in consultation in the cardiac floor. He is currently sitting up in a chair at the bedside. He is awake and alert in no acute distress. He is somewhat unclear as to why he was brought here from the extended-care facility. He does state he has ongoing shortness of breath. He is currently maintaining good O2 saturations in the 90s on 4 L per minute per nasal cannula. He is afebrile. Hemodynamically stable. Review of Systems Constitutional: Reports fatigue, Reports weakness, Reports weight gain Eyes: denies blurred vision, denies bulging eye, denies decreased vision Ears: deny: decreased hearing, ear discharge, earache, tinnitus Ears, nose, mouth and throat: Denies headache, Denies sore throat Cardiovascular: Reports decreased exercise tolerance, Reports dyspnea on exertion, Reports edema, Reports irregular heart beat, Reports orthopnea, Reports palpitations, Reports rapid heart beat, Reports shortness of breath Respiratory: Reports dyspnea Gastrointestinal: Denies abdominal pain, Denies diarrhea, Denies nausea, Denies vomiting Genitourinary: Reports as per HPI Musculoskeletal: Reports low back pain, Reports muscle weakness Musculoskeletal: absent: ankle pain, ankle stiffness, ankle swelling Integumentary: Denies pruritus, Denies rash Neurological: Reports weakness Endocrine: Reports as per HPI, Reports fatigue Hematologic/Lymphatic: Reports as per HPI Allergic/Immunologic: Reports as per HPI Past Medical History Past Medical History: Atrial Fibrillation, Atrial Flutter, Coronary Artery Disease (CAD), Cancer, Chest Pain / Angina, Heart Failure, COPD, Diabetes Mellitus, GERD/Reflux, GI Bleed, Hearing Disorder / Deafness, Hyperlipidemia, Hypertension, Myocardial Infarction (SC), Renal Disease, Sleep Apnea/CPAP/BIPAP , Vascular Disorder Additional Past Medical History / Comment(s): Pt was recently at [facility] 02/09-02/11 with transfer to [facility] in [place]. Pt to [facility] December with transfer to [facility], was discharged from [facility] on Sunday, January 11, 2018 where he was treated for Afib RVR/ CHF and exacerbation of his COPD. Other hx: Chronic respiratory failure with home O2 at 2L/NC ATC, coronary artery disease and previous MIs x 7 and the patient is status post coronary artery bypass surgery, chronic atrial fibrillation, systolic heart failure, diabetes mellitus type 2, hyperlipidemia, hypertension, COPD, obstructive sleep apnea, lower GI bleed d/t cancerous tumor with small bowel cancer with surgery, IDDM type II with bilateral feet neuropathy, PEDRO/cannot tolerate CPAP, insomnia, RLS, chronic low back pain, PVD , constipation, diverticular dx, RUBY bilaterally, agent orange exposure. Chronic kidney failure Last Myocardial Infarction Date:: 1997 History of Any Multi-Drug Resistant Organisms: None Reported Past Surgical History: Back Surgery, Bowel Resection, Cardiac Ablation, Coronary Bypass/CABG, Heart Catheterization, Heart Catheterization With Stent, Joint Replacement, Orthopedic Surgery Additional Past Surgical History / Comment(s): FAVIAN, cardiac ablation, several cardiac caths, PCI with stents-total of 2007 CABG 3 vessel, 14 inches small bowel removed for cancerous tumor, partial L knee replacement, R leg vascular surgery, EGD/colonoscopy, endocapsule, L toe middle toe amp, low back fusion, bilateral cataract removals. Past Anesthesia/Blood Transfusion Reactions: No Reported Reaction Date of Last Stent Placement:: 1997 Past Psychological History: No Psychological Hx Reported Smoking Status: Former smoker Past Alcohol Use History: Rare Past Drug Use History: None Reported - Past Family History Father Family Medical History: Chest Pain / Angina, Coronary Artery Disease (CAD), Myocardial Infarction (SC) Additional Family Medical History / Comment(s): Father of a SC at the age of 54yrs. Brother(s) Family Medical History: Chest Pain / Angina, Coronary Artery Disease (CAD), Myocardial Infarction (SC) Additional Family Medical History / Comment(s): Brother had a SC at the age of 58 yrs. He is living. Son(s) Family Medical History: Musculoskeletal Disorder Mother Family Medical History: Vascular Disorder Additional Family Medical History / Comment(s): of brain aneurysm at age 34 Medications and Allergies Home Medications Medication Instructions Recorded Confirmed Type rOPINIRole HCL [Requip] 1.5 mg PO HS 11/12/17 05/15/18 History Budesonide [Pulmicort] 1 mg INHALATION RT-BID 01/14/18 05/15/18 History Ergocalciferol (Vitamin D2) 50,000 unit PO SA 01/14/18 05/15/18 History [Vitamin D2] Tamsulosin [Flomax] 0.4 mg PO PC-BRKFST cap.er.24h 02/14/18 05/15/18 Rx Pantoprazole [Protonix] 40 mg PO DAILY@0600 02/28/18 05/15/18 History Rivaroxaban [Xarelto] 20 mg PO HS@1700 02/28/18 05/15/18 History Albuterol Inhaler [Ventolin Hfa 2 puff INHALATION RT-Q4H 05/15/18 05/15/18 History Inhaler] Albuterol Nebulized [Ventolin 2.5 mg INHALATION RT-Q4H 05/15/18 05/15/18 History Nebulized] Apixaban [Eliquis] 5 mg PO BID 05/15/18 05/15/18 History Bumetanide [BUMEX] 1 mg PO BID 05/15/18 05/15/18 History Dofetilide [Tikosyn] 500 mg PO BID 05/15/18 05/15/18 History Insulin Aspart [NovoLOG] 10 - 14 units SQ AC-TID 05/15/18 05/15/18 History Insulin Detemir [Levemir] 10 unit SQ HS 05/15/18 05/15/18 History Lidocaine [Lidoderm 5% Patch] 1 patch TOPICAL Q12HR 05/15/18 05/15/18 History Metolazone [Zaroxolyn] 2.5 mg PO MOWEFR 05/15/18 05/15/18 History Metoprolol Succinate [Toprol Xl] 50 mg PO DAILY 05/15/18 05/15/18 History Naloxone HCl [Narcan] 4 mg EA NOSTRIL DIRECTED 05/15/18 05/15/18 History Naproxen Sodium [Aleve] 220 mg PO DAILY 05/15/18 05/15/18 History Pregabalin [Lyrica] 150 mg PO PC-SUPPER 05/15/18 05/15/18 History Pregabalin [Lyrica] 300 mg PO DAILY 05/15/18 05/15/18 History Sacubitril/Valsartan [Entresto 49 1 tab PO BID 05/15/18 05/15/18 History mg-51 mg Tablet] Spironolactone [Aldactone] 25 mg PO BID 05/15/18 05/15/18 History guaiFENesin 400 mg PO TID 05/15/18 05/15/18 History oxyCODONE HCL [Roxicodone] 15 mg PO AC-LUNCH 05/15/18 05/15/18 History oxyCODONE HCL [Roxicodone] 20 mg PO BID 05/15/18 05/15/18 History Allergies Allergy/AdvReac Type Severity Reaction Status Date / Time No Known Allergies Allergy Verified 05/15/18 09:55 Physical Exam Vitals: Vital Signs Temp Pulse Pulse Resp BP BP Pulse Ox 05/15/18 12:00 97.9 F 110 H 18 118/68 92 L 05/15/18 10:59 100 05/15/18 10:46 100 05/15/18 08:00 98.7 F 135 H 18 110/67 95 05/15/18 07:28 137 H 05/15/18 07:14 128 H 05/15/18 00:00 97.6 F 123 H 17 116/66 92 L 05/14/18 23:04 97.4 F L 116 H 18 105/77 97 05/14/18 20:30 106 H 18 92/68 98 05/14/18 19:47 86 18 132/81 95 05/14/18 18:56 98 119/61 05/14/18 18:30 99 20 90/50 95 05/14/18 18:29 20 05/14/18 17:39 98.6 F 106 H 22 106/69 90 L 05/14/18 17:37 87 L Intake and Output 05/15/18 05/15/18 05/15/18 06:59 14:59 22:59 Output Total 200 Balance -200 Output: Urine 200 Other: Voiding Method Urinal Gen. appearance obese, comfortable and mild degree of respiratory distress. Sitting up on a chair. Head exam was generally normal. There was no scleral icterus or corneal arcus. Mucous membranes were moist. Neck is short and supple and the patient is a Mallampati class IV. There is a little neck masses. Lungs sounds are diminished in lung bases bilaterally along with some limited bibasilar crackles. Breath sounds are diminished bilaterally. Heart sounds are irregular tachycardia consistent with atrial fibrillation. It is an irregular S1 and S2. No significant murmurs appreciated. Sternum stable clean and intact. Abdominal exam revealed normal bowel sounds. The abdomen was soft, non-tender, and without masses, organomegaly, or appreciable enlargement of the abdominal aorta. Extremities reveal trace ankle edema. There is no cyanosis or clubbing. No wounds or sores. Examination of the skin revealed no evidence of significant rashes, suspicious appearing nevi or other concerning lesions. Neurologically is awake and alert there is no focal neurological deficits. Results - Laboratory Findings CBC and BMP: 05/15/18 06:28 05/15/18 06:28 PT/INR, D-dimer PT 10.5 sec (9.0-12.0) 05/14/18 18:04 INR 1.1 (<1.2) 05/14/18 18:04 D-Dimer 0.22 mg/L FEU (<0.60) 05/14/18 18:04 Abnormal lab findings: Abnormal Labs 05/14/18 05/14/18 05/14/18 18:04 18:04 18:04 WBC 10.9 H RBC 3.77 L Hgb 10.7 L Hct 35.0 L MCHC 30.6 L RDW 16.8 H Neutrophils # 9.7 H Lymphocytes # 0.6 L Sodium 135 L Chloride 91 L Carbon Dioxide 36 H BUN 30 H Glucose 218 H POC Glucose (mg/dL) AST Total Creatine Kinase 24 L Total Protein 5.9 L Albumin 05/15/18 05/15/18 05/15/18 06:28 06:28 06:57 WBC RBC 3.60 L Hgb 10.5 L Hct 33.0 L MCHC RDW 16.7 H Neutrophils # Lymphocytes # Sodium Chloride 90 L Carbon Dioxide 40 H BUN 28 H Glucose 158 H POC Glucose (mg/dL) 173 H AST 14 L Total Creatine Kinase Total Protein 5.5 L Albumin 3.2 L 05/15/18 11:30 WBC RBC Hgb Hct MCHC RDW Neutrophils # Lymphocytes # Sodium Chloride Carbon Dioxide BUN Glucose POC Glucose (mg/dL) 160 H AST Total Creatine Kinase Total Protein Albumin - Diagnostic Findings Chest x-ray: image reviewed Assessment and Plan Plan: Assessment 1 acute dyspnea secondary to CHF/diastolic failure with a component of fluid overload and early pulmonary edema. This patient has chronic shortness of breath. There has been acute worsening and decompensation and the vascular status. Chest x-ray is consistent with heart failure, wide mediastinum and interstitial edema consistent with CHF and fluid overload. 2 acute hypoxic respiratory failure on top of chronic hypoxic respiratory failure. 3 CHF with diastolic heart failure and preserved LV function, echocardiogram from 01/17/2018 shows an ejection fraction of 55-60% and concentric left ventricular hypertrophy 4 moderate degree of pulmonary hypertension 5 chronic atrial fibrillation and the patient presented with A. fib/RVR time of admission. 6 COPD currently inactive in stable 7 morbid obesity with a BMI of 44.5 8 diabetes mellitus type 2 9 coronary artery disease with previous myocardial infarction and previous carotid bypass surgery 10 peripheral neuropathy 11 carcinoid tumor post small bowel resection, without evidence of any recurrence based on the most recent CAT scan of the abdomen 12 obstructive sleep apnea, nontolerant to CPAP therapy 13 carotid artery disease with less than 25% stenosis at the level of the carotid bifurcation and internal carotid artery and evidence of distal disease bilaterally involving probably more than 50% Plan Suggest restarting diuresis on this patient to optimize volume status. May benefit from IV Lasix. Lasix drip was ordered by cardiology. Continue Zaroxolyn. Continue Aldactone. Continue Entresto. Continue metoprolol for rate control. Continue long-term and coagulation with Xarelto. Cardiology follow-up. Continue bronchodilators. Prognosis poor baseline above-mentioned comorbidities. Time with Patient: Greater than 30
[2018-05-15] MEDS: RIVAROXABAN 20 MG TAB PO SCH (18:19)
[2018-05-15] MEDS: ATORVASTATIN 20 MG TAB PO SCH (20:08)
[2018-05-15] MEDS: SPIRONOLACTONE 25 MG TAB PO SCH (20:09)
[2018-05-15] MEDS: MELATONIN 3 MG TABLET PO SCH (20:10)
[2018-05-15] MEDS: INSULIN DETEMIR 100 UNIT/ML 10 ML VIAL SQ SCH (20:28)
[2018-05-15 20:40] LABS: Glucose,Whole Blood 168 mg/dL (75-99)
[2018-05-15] MEDS ORDERED: INSULIN DETEMIR 100 UNIT/ML 10 ML VIAL SQ SCH (21:00)
[2018-05-16] MEDS: IPRATROPIUM-ALBUTEROL 3 ML NEB INHALATION SCH ×4 (05:21→21:05)
[2018-05-16 06:08] LABS: Glucose,Whole Blood 163 mg/dL (75-99)
[2018-05-16] MEDS: PANTOPRAZOLE 40 MG TABLET PO SCH (07:21)
[2018-05-16] MEDS: INSULIN ASPART 100 UNIT/ML 1 ML 10 ML VIAL SQ SCH ×7 (07:21→20:33)
[2018-05-16] MEDS: guaiFENesin 600 MG TABLET.ER PO SCH ×2 (08:18→19:43)
[2018-05-16] MEDS: PREGABALIN 75 MG CAP PO SCH (08:18)
[2018-05-16] MEDS: SACUBITRIL/VALSARTAN 24 MG-26 MG TABLET PO SCH ×2 (08:19→19:43)
[2018-05-16] MEDS: ASPIRIN 81 MG PO SCH (08:19)
[2018-05-16] MEDS: SPIRONOLACTONE 25 MG TAB PO SCH ×2 (08:19→19:43)
[2018-05-16] MEDS: METOLAZONE 2.5 MG TAB PO SCH (08:19)
[2018-05-16] MEDS: TAMSULOSIN 0.4 MG CAP.ER.24H PO SCH (08:19)
[2018-05-16] MEDS: METOPROLOL SUCCINATE (ER) 50 MG TAB.ER.24H PO SCH (08:19)
[2018-05-16] MEDS: BUDESONIDE 1 MG/2 ML NEBU INHALATION SCH ×2 (08:27→21:05)
[2018-05-16] MEDS ORDERED: FUROSEMIDE 10 MG/ML 10 ML VIAL IV SCH (10:15)
[2018-05-16 11:28] LABS: Anisocytosis Slight; HCT 31.3 % (39.0-53.0); HGB 9.9 gm/dL (13.0-17.5); Hypochromasia Moderate; MCHC 31.5 g/dL (31.0-37.0); Mean Platelet Volume 7.1; Platelet Count 198 k/uL (150-450); RDW 16.7 % (11.5-15.5); WBC 9.4 k/uL (3.8-10.6)
[2018-05-16 11:29] LABS: Glucose,Whole Blood 202 mg/dL (75-99)
--- NOTE | 2018-05-16 13:42 | P.PN ---
Subjective Progress Note Date: 05/16/18 This is a 68-year-old male one of my patient wih known history of chronic hypercapnic and hypoxemic respiratory failure, advanced COPD with moderate pulmonary hypertension, known paroxysmal atrial fibrillation/ Flutter on long-term anticoagulation, chronic systolic heart heart failure with a recent EF 40% , restless leg, diabetes mellitus type 2, with diabetic polyneuropathy, patient was recently hospitalized at [facility] from till 05/03/2018 after he was admitted for acute hypercapneic and hypoxemic respiratory failure and acute systolic heart failure and he was sent to [facility] for PT and OT , I was following the patient very closely at [facility] and I was seening him twice per week and he was given multiple injectinons of lasix due to sudden ncrease in his weight and he was plced on CPAP most of the time, yeasterday went to [facility] and he was in respiratory failure with mental status changes, and he was given Lasix 80 mg IM , along with his scheduled dose of Bumex and spironolactone , along with entresto without much help, EMS was called and he was sent to the ER at [facility] were he was found to have Pulmonary edema, he was started on Lasix 40 mg IV Q 8 H along with Entresto and Toprol, spironolactone, and patient was admitted to the hospital, cardiology consultation was obtained as welll as Pulmonary consult. Patient was seen by earlier in April and had a DCG and he was supposed to have a follow up with him regarding the treatment of A.Flutter but he never connected with him since he ended in the hospital in April 25 . we really need to find what was the result of the Holter that he had and try to intervene in A.Flutter management otherwise he will continue to have recurrent hospital admission due to decompensation of his systolic heart failure. 05/16: Patient states his breathing is a little bit better from yesterday. He continues to have lower extremity edema. He has been seen by cardiology and IV Lasix was discontinued, mentalis own was added at 2.5 mg daily and spironolactone was increased to 50 mg twice daily. We will resume patient back on Lasix 80 mg IV twice daily. We will resume IV Lasix at 40 mg. His weight is down 2 kg from admission. Patient's is to bring in CPAP. Review Of Systems: Constitutional: No fever, no chills, no night sweats. No weight change. + weakness, +fatigue. + daytime sleepiness. EENT: No headache. No blurred vision or double vision, no loss of vision. No loss of Hearing, no ringing in the ears, no dizziness. No nasal drainage or congestion. No epistaxis. No sore throat. Lungs: +shortness of breath, +cough, + sputum production. No wheezing. Cardiovascular: No chest pain, + lower extremity edema. + palpitations. + paroxysmal nocturnal dyspnea. + orthopnea. No lightheadedness or dizziness. No syncopal episodes. Abdominal: No abdominal pain. + bloating. No nausea, vomiting. No diarrhea. No constipation. No bloody or tarry stools.. No loss of appetite. Genitourinary: No dysuria, increased frequency, urgency. No urinary retention. Musculoskeletal: No myalgias. = muscle weakness, + gait dysfunction, no frequent falls. + back pain. No neck pain. Integumentary: No wounds, no lesions. No rash or pruritus. No unusual bruising. No change in hair or nails. Neurologic: No aphasia. No facial droop. No change in mentation. No head injury. No headache. No paralysis. No paresthesia. Psychiatric: No depression. + anxiety. Endocrine: No abnormal blood sugars. No weight change. No excessive sweating or thirst. No cold intolerance. Objective - Vital Signs Vital signs: Vital Signs Temp 97.6 F 05/16/18 08:00 Pulse 88 05/16/18 08:36 Resp 20 05/16/18 08:00 BP 115/68 05/16/18 08:00 Pulse Ox 94 L 05/16/18 08:00 Intake & Output 05/15/18 05/16/18 05/16/18 18:59 06:59 18:59 Intake Total 240 240 Balance 240 240 Weight 146.8 kg Intake: Oral 240 240 Other: Voiding Method Toilet Toilet # Voids 3 1 - Exam General appearance: mild distress, obese - EENT Eyes: anicteric sclerae, EOMI, PERRLA, no ptosis, no scleral icterus, normal appearance ENT: hard of hearing, NA/AT, normal oropharynx, no thrush Ears: bilateral: normal - Neck Neck: no lymphadenopathy, normal ROM, no rigidity, no stridor, no thyromegaly Carotids: bilateral: upstroke normal Thyroid: bilateral: normal size - Respiratory Respiratory: bilateral: diminished, negative: dullness, rales, rhonchi, wheezing , prolonged expiration - Cardiovascular Rhythm: irregularly irregular Heart sounds: normal: S1, S2 Abnormal Heart Sounds: systolic murmur - Gastrointestinal General gastrointestinal: distended, hyperactive bowel sounds, soft, no tenderness, no umbilical hernia, no ventral hernia - Integumentary Integumentary: normal, normal turgor - Neurologic Neurologic: CNII-XII intact - Musculoskeletal Musculoskeletal: generalized weakness, strength equal bilaterally, 3+ pedal edema - Psychiatric Psychiatric: A&O x's 3, appropriate affect, intact judgment & insight - Labs CBC & Chem 7: 05/16/18 10:45 05/15/18 06:28 Labs: Abnormal Lab Results - Last 24 Hours (Table) 05/15/18 05/15/18 05/15/18 Range/Units 11:30 17:06 20:39 POC Glucose (mg/dL) 160 H 139 H 168 H (75-99) mg/dL 05/16/18 Range/Units 06:06 POC Glucose (mg/dL) 163 H (75-99) mg/dL Microbiology - Last 24 Hours (Table) 05/14/18 18:04 Blood Culture - Preliminary Blood No Growth after 24 hours Assessment and Plan Plan: 1. Acute systolic heart failure. Resume Lasix at 80 mg twice daily IVP, spironolactone increased to 50 mg orally bid, Entresto 24/26 mg orally bid and Metoprolol 100 mg orally daily, we will continue with fluid restriction 1500 ml daily, daily weight, and heart failure education may need LVAD if no improvement. Metolazone 2.5 mg daily added. Cardiology consult appreciated. 2. Chronic hypercapneic and hypoxemic respiratory failure. we will continue with CPAP, O2 and duoneb 3m NEB QID along with pulmicort 1 mg NEB bid. Pulmonary consult. Patient's will bring in CPAP. 3. Advanced COPD. we will continue with Neb Rx as above. 4. Paroxysmal atrial fibrillation/Flutter. we will continue with Metoprolol 100 mg orally daily and Xarelto 20 mg orally daily, cardiology evaluation and try to get the result of the DCG that was done as outpatient with . 5. Hypertension and hypertensive cardiovascular disease. we will continue with Metoprolol 100 mg orally daily and Entresto 24/26 mg orally daily. 6. Diabetes Mellitus type 2 uncontrolled. will increase Levemir to 35 units sc qhs and will continue with Novolog 15 units AC meals tid, along with SSI, we will continue with CCA 1800 diet and BGM AC meals and at bedtime. 7. Diabetic polyneuropathy. we will contiue with Lyrica 150 mg orally qhs. 8. Restless leg syndrome. we will continue with Requip 1.5 mg orally at bedtime. 9. Hyperlipidemia. we will continue with Lipitor 20 mg orally daily. 10. Obestiy with PEDRO and OHS. we will continue with CPAP, may need his mask adjusted we will call [facility] to reevaluate. 11. Vitamin D deficiency. we will continue with vit D q week. 12. GERD . will continue with Protonix 40 mg orally daily. 13.BPH. we will continue with Flomax 0.4 mg orally daily. 14. DVT prophylaxis. we will continue with Xarelto 20 mg orally daily. 15. GI prophylaxis. we will continue with PPI. 16. Full code. Discharge plan: Return to [facility] Impression and plan of care have been directed as dictated by the signing physician. Larissa Warner nurse practitioner acting as scribe for signing physician.
--- NOTE | 2018-05-16 13:49 | P.PN ---
Subjective Progress Note Date: 05/16/18 Principal diagnosis: Acute exacerbation of diastolic congestive heart failure 68-year-old male patient is well-known to me who comes in again to the hospital because of worsening shortness of breath. The patient came into the ED for increased dyspnea over the past few days. He has also noted some increased swelling lower oximetry is bilaterally. According to him has gained around additional 20 pounds above and beyond his baseline. I went and looked at the records and the patient has gained significant amount of weight since summer. He denies having any significant cough or sputum production. No chest pain. He is known to have multiple medical problems and comorbidities as mentioned earlier in the medical records. Upon arrival to the hospital, the patient was also in atrial fibrillation she has been in a chronic basis and his heart rate was 101.. His white cell count is not elevated. His renal function is within normal limits. His correlation profile is also within normal limits. The BNP level is at 1040. First is of cardiac enzymes was negative. The patient currently is on a combination of Zaroxolyn 2.5 mg by mouth daily, Aldactone 50 Bmouth twice a day and he is also on metoprolol 100 mg by mouth daily and Entresto 24/26 one tablet daily and he is also on long-term medical condition with Xarelto. In terms of medical problems and comorbidities, the patient is morbidly obese and he has a BMI of 44.5. He has untreated obstructive sleep apnea as the patient was unable to tolerate CPAP therapy. He is known to have chronic atrial fibrillation. He has COPD, moderate degree of pulmonary hypertension, chronic atrial fibrillation, chronic systolic heart failure with an ejection fraction of 40%, diabetes mellitus type 2, diabetic peripheral neuropathy, restless leg syndrome, patient also has history of coronary artery disease. He has been forced [facility] on multiple occasions. His undergone coronary artery bypass surgery. 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 Follow-up CAT scan of the abdomen and pelvis was done last month did not show any recurrent tumor within the abdomen. His been disease free since his surgery. He is known to have chronic diverticular disease. He has also chronic pain/back pain. Patient is seen today in consultation in the cardiac floor. He is currently sitting up in a chair at the bedside. He is awake and alert in no acute distress. He is somewhat unclear as to why he was brought here from the extended-care facility. He does state he has ongoing shortness of breath. He is currently maintaining good O2 saturations in the 90s on 4 L per minute per nasal cannula. He is afebrile. Hemodynamically stable. The patient is seen again today 05/16/2018 in follow-up on the selective care unit. He is currently sitting up in a chair at the bedside. He is awake and alert in no acute distress. He continues to diurese well. He remains with fluid volume overload. 1-2+ peripheral edema lower extremities and in the sacral area. He remains on Lasix 80 mg IV push every 12 hours. He is maintaining good O2 saturations in the upper 90s on 4 L/m per nasal cannula. He is afebrile. Hemodynamically stable. Objective - Vital Signs Vital signs: Vital Signs Temp 97.6 F 05/16/18 12:00 Pulse 92 05/16/18 12:04 Resp 20 05/16/18 12:00 BP 95/68 05/16/18 12:00 Pulse Ox 97 05/16/18 12:00 Intake & Output 05/15/18 05/16/18 05/16/18 18:59 06:59 18:59 Intake Total 240 480 Output Total 800 Balance 240 -320 Weight 146.8 kg 146.8 kg Intake: Oral 240 480 Output: Urine 800 Other: Voiding Method Toilet Toilet Toilet # Voids 3 1 - Exam Gen. appearance obese, comfortable and mild degree of respiratory distress. Sitting up on a chair. Head exam was generally normal. There was no scleral icterus or corneal arcus. Mucous membranes were moist. Neck is short and supple and the patient is a Mallampati class IV. There is a little neck masses. Lungs sounds are diminished in lung bases bilaterally along with some limited bibasilar crackles. Breath sounds are diminished bilaterally. Heart sounds are irregular tachycardia consistent with atrial fibrillation. It is an irregular S1 and S2. No significant murmurs appreciated. Sternum stable clean and intact. Abdominal exam revealed normal bowel sounds. The abdomen was soft, non-tender, and without masses, organomegaly, or appreciable enlargement of the abdominal aorta. Extremities reveal trace ankle edema. There is no cyanosis or clubbing. No wounds or sores. Examination of the skin revealed no evidence of significant rashes, suspicious appearing nevi or other concerning lesions. Neurologically is awake and alert there is no focal neurological deficits. - Labs CBC & Chem 7: 05/16/18 10:45 05/15/18 06:28 Labs: Abnormal Lab Results - Last 24 Hours (Table) 05/15/18 05/15/18 05/16/18 Range/Units 17:06 20:39 06:06 RBC (4.30-5.90) m/uL Hgb (13.0-17.5) gm/dL Hct (39.0-53.0) % RDW (11.5-15.5) % POC Glucose (mg/dL) 139 H 168 H 163 H (75-99) mg/dL 05/16/18 05/16/18 Range/Units 10:45 11:26 RBC 3.40 L (4.30-5.90) m/uL Hgb 9.9 L (13.0-17.5) gm/dL Hct 31.3 L (39.0-53.0) % RDW 16.7 H (11.5-15.5) % POC Glucose (mg/dL) 202 H (75-99) mg/dL Microbiology - Last 24 Hours (Table) 05/14/18 18:04 Blood Culture - Preliminary Blood No Growth after 24 hours Assessment and Plan Assessment: Assessment 1 acute dyspnea secondary to CHF/diastolic failure with a component of fluid overload and early pulmonary edema. This patient has chronic shortness of breath. There has been acute worsening and decompensation and the vascular status. Chest x-ray is consistent with heart failure, wide mediastinum and interstitial edema consistent with CHF and fluid overload. 2 acute hypoxic respiratory failure on top of chronic hypoxic respiratory failure. 3 CHF with diastolic heart failure and preserved LV function, echocardiogram from 01/17/2018 shows an ejection fraction of 55-60% and concentric left ventricular hypertrophy 4 moderate degree of pulmonary hypertension 5 chronic atrial fibrillation and the patient presented with A. fib/RVR time of admission. Anticoagulated with Xarelto. 6 COPD currently inactive in stable 7 morbid obesity with a BMI of 44.5 8 diabetes mellitus type 2 9 coronary artery disease with previous myocardial infarction and previous carotid bypass surgery 10 peripheral neuropathy 11 carcinoid tumor post small bowel resection, without evidence of any recurrence based on the most recent CAT scan of the abdomen 12 obstructive sleep apnea, nontolerant to CPAP therapy 13 carotid artery disease with less than 25% stenosis at the level of the carotid bifurcation and internal carotid artery and evidence of distal disease bilaterally involving probably more than 50% Plan The patient was seen and evaluated by Dr. Velazquez. We'll continue with the current treatment plan. Continue with diuretics. Continue bronchodilators. Anticoagulated with Xarelto. We will increase his activity as tolerated. We' ll continue to follow and make further recommendations based on his clinical status. I, the cosigning physician, performed a history & physical examination of the patient. Lungs sounds with crackles in the posterior bases, diminished. Maintaining good O2 saturations in the 90s on 4 liters per minute per nasal cannula. I discussed the assessment and plan of care with my nurse practitioner , Peyton Watts. I attest to the above note as dictated by her.
[2018-05-16 15:13] LABS: Hemoglobin A1C 8.4 % (4.0-6.0)
[2018-05-16] MEDS: FUROSEMIDE 250 MG in SODIUM CHLORIDE 0.9% 225 ML IVP SCH (15:45)
--- NOTE | 2018-05-16 16:13 | P.PN ---
Subjective Progress Note Date: 05/16/18 This is a 68-year-old gentleman seen in consultation yesterday by Dr. VC Hamlin. Presented to the hospital with symptoms of a 2-3 day duration of shortness of breath currently receiving treatment for congestive cardiac failure. Patient has known history of coronary artery disease with prior bypass surgery, moderate to severe COPD, persistent atrial flutter, status post prior ablation. Blood pressure this morning 95/60 with a heart rate in the 90s , 95% on 4 L of oxygen. White blood cell count 9.4, hemoglobin 9.9, platelet count 198. We will discontinue the IV Lasix today and start the patient on a Lasix drip. Objective - Vital Signs Vital signs: Vital Signs Temp 98.8 F 05/16/18 15:54 Pulse 93 05/16/18 15:54 Resp 20 05/16/18 15:54 BP 90/51 05/16/18 15:54 Pulse Ox 95 05/16/18 15:54 Intake & Output 05/15/18 05/16/18 05/16/18 18:59 06:59 18:59 Intake Total 240 480 Output Total 800 Balance 240 -320 Weight 146.8 kg 146.8 kg Intake: Oral 240 480 Output: Urine 800 Other: Voiding Method Toilet Toilet Toilet # Voids 3 1 - Exam PHYSICAL EXAMINATION: GENERAL: 68-year-old gentleman in no acute distress at the time of my examination HEENT: Head is atraumatic, normocephalic. Pupils equal, round. Sclera anicteric. Conjunctiva are clear. Mucous membranes of the mouth are moist. Neck is supple. There is elevated jugular venous pressure. No carotid bruit is heard. HEART EXAMINATION: Heart S1, S2 normal. No murmur or gallop heard. CHEST EXAMINATION: Lungs reveal bibasilar rales with scattered wheezing throughout. ABDOMEN: Soft, nontender. Bowel sounds are heard. No organomegaly noted. EXTREMITIES: 2+ peripheral pulses with 2-3+ evidence of peripheral edema and no calf tenderness noted. NEUROLOGIC patient is awake, alert and oriented 3 . . - Labs CBC & Chem 7: 05/16/18 10:45 05/15/18 06:28 Labs: Abnormal Lab Results - Last 24 Hours (Table) 05/15/18 05/15/18 05/15/18 Range/Units 06:28 17:06 20:39 RBC (4.30-5.90) m/uL Hgb (13.0-17.5) gm/dL Hct (39.0-53.0) % RDW (11.5-15.5) % POC Glucose (mg/dL) 139 H 168 H (75-99) mg/dL Hemoglobin A1c 8.4 H (4.0-6.0) % 05/16/18 05/16/18 05/16/18 Range/Units 06:06 10:45 11:26 RBC 3.40 L (4.30-5.90) m/uL Hgb 9.9 L (13.0-17.5) gm/dL Hct 31.3 L (39.0-53.0) % RDW 16.7 H (11.5-15.5) % POC Glucose (mg/dL) 163 H 202 H (75-99) mg/dL Hemoglobin A1c (4.0-6.0) % Microbiology - Last 24 Hours (Table) 05/14/18 18:04 Blood Culture - Preliminary Blood No Growth after 24 hours Assessment and Plan Plan: Assessment 1 acute dyspnea secondary to CHF/diastolic failure with a component of fluid overload and early pulmonary edema. This patient has chronic shortness of breath. There has been acute worsening and decompensation and the vascular status. Chest x-ray is consistent with heart failure, wide mediastinum and interstitial edema consistent with CHF and fluid overload. 2 acute hypoxic respiratory failure on top of chronic hypoxic respiratory failure. 3 CHF with diastolic heart failure and preserved LV function, echocardiogram from 01/17/2018 shows an ejection fraction of 55-60% and concentric left ventricular hypertrophy 4 moderate degree of pulmonary hypertension 5 chronic atrial fibrillation and the patient presented with A. fib/RVR time of admission. Status post prior flutter ablation 6 COPD currently inactive in stable 7 morbid obesity with a BMI of 44.5 8 diabetes mellitus type 2 9 coronary artery disease with previous myocardial infarction and previous carotid bypass surgery 10 peripheral neuropathy 11 carcinoid tumor post small bowel resection, without evidence of any recurrence based on the most recent CAT scan of the abdomen 12 obstructive sleep apnea, nontolerant to CPAP therapy 13 carotid artery disease with less than 25% stenosis at the level of the carotid bifurcation and internal carotid artery and evidence of distal disease bilaterally involving probably more than 50% Plan We will discontinue the IV push Lasix and start the patient on a Lasix drip today, continue to monitor intake and output along with daily weights and daily lytes BUN and creatinine. DNP note has been reviewed, I agree with a documented findings and plan of care. Patient was seen and examined.
[2018-05-16 16:30] LABS: Glucose,Whole Blood 150 mg/dL (75-99)
[2018-05-16] MEDS: RIVAROXABAN 20 MG TAB PO SCH (17:59)
[2018-05-16] MEDS: ATORVASTATIN 20 MG TAB PO SCH (19:43)
[2018-05-16] MEDS: MELATONIN 3 MG TABLET PO SCH (19:43)
[2018-05-16 20:31] LABS: Glucose,Whole Blood 102 mg/dL (75-99)
[2018-05-16] MEDS: INSULIN DETEMIR 100 UNIT/ML 10 ML VIAL SQ SCH (22:13)
[2018-05-17] MEDS: IPRATROPIUM-ALBUTEROL 3 ML NEB INHALATION PRN (03:27)
[2018-05-17 05:55] LABS: Glucose,Whole Blood 155 mg/dL (75-99)
[2018-05-17 07:25] LABS: Anisocytosis Slight; HCT 33.6 % (39.0-53.0); HGB 10.7 gm/dL (13.0-17.5); Hypochromasia Moderate; MCH 28.8 pg (25.0-35.0); MCHC 31.9 g/dL (31.0-37.0); MCV 90.4 fL (80.0-100.0); Mean Platelet Volume 6.7; Platelet Count 223 k/uL (150-450); Poikilocytosis Slight; RBC 3.72 m/uL (4.30-5.90); RDW 16.7 % (11.5-15.5)
[2018-05-17] MEDS: INSULIN ASPART 100 UNIT/ML 1 ML 10 ML VIAL SQ SCH ×7 (07:33→21:28)
[2018-05-17] MEDS: PANTOPRAZOLE 40 MG TABLET PO SCH (07:34)
[2018-05-17 07:41] LABS: Calcium 9.3 mg/dL (8.4-10.2); Potassium 4.4 mmol/L (3.5-5.1)
[2018-05-17] MEDS: METOPROLOL SUCCINATE (ER) 50 MG TAB.ER.24H PO SCH (07:54)
[2018-05-17] MEDS: TAMSULOSIN 0.4 MG CAP.ER.24H PO SCH (07:54)
[2018-05-17] MEDS: guaiFENesin 600 MG TABLET.ER PO SCH ×2 (07:54→21:29)
[2018-05-17] MEDS: ASPIRIN 81 MG PO SCH (07:54)
[2018-05-17] MEDS: PREGABALIN 75 MG CAP PO SCH (07:54)
[2018-05-17] MEDS: SACUBITRIL/VALSARTAN 24 MG-26 MG TABLET PO SCH ×2 (07:54→21:32)
[2018-05-17] MEDS: METOLAZONE 2.5 MG TAB PO SCH (07:54)
[2018-05-17] MEDS: SPIRONOLACTONE 25 MG TAB PO SCH ×2 (07:55→21:39)
[2018-05-17] MEDS: IPRATROPIUM-ALBUTEROL 3 ML NEB INHALATION SCH ×4 (08:19→20:22)
[2018-05-17] MEDS: BUDESONIDE 1 MG/2 ML NEBU INHALATION SCH ×2 (08:19→20:22)
--- NOTE | 2018-05-17 10:37 | PN ---
PROGRESS NOTE This patient was admitted with congestive cardiac failure, patient is feeling better. He has been diuresing well. Patient is afebrile. Blood pressure is 107/64 mmHg. Respirations are not labored. Oxygen saturation is normal. Patient has a total urine output of 4003 L. First and second heart sounds are heard. Lungs are fairly clear to auscultation and percussion. Patient still has 1 to 2+ pedal edema. Creatinine remains stable. We will continue the patient on the Lasix drip and Zaroxolyn. If patient is doing well, patient can be switched to the IV Lasix tomorrow. MMODL / IJN: [id number] /
[2018-05-17 12:14] LABS: Glucose,Whole Blood 144 mg/dL (75-99)
[2018-05-17] MEDS: FUROSEMIDE 250 MG in SODIUM CHLORIDE 0.9% 225 ML IVP SCH ×2 (13:14→18:57)
--- NOTE | 2018-05-17 13:54 | P.PN ---
Subjective Progress Note Date: 05/17/18 This is a 68-year-old male one of my patient wih known history of chronic hypercapnic and hypoxemic respiratory failure, advanced COPD with moderate pulmonary hypertension, known paroxysmal atrial fibrillation/ Flutter on long-term anticoagulation, chronic systolic heart heart failure with a recent EF 40% , restless leg, diabetes mellitus type 2, with diabetic polyneuropathy, patient was recently hospitalized at [facility] from till 05/03/2018 after he was admitted for acute hypercapneic and hypoxemic respiratory failure and acute systolic heart failure and he was sent to [facility] for PT and OT , I was following the patient very closely at [facility] and I was seening him twice per week and he was given multiple injectinons of lasix due to sudden ncrease in his weight and he was plced on CPAP most of the time, yeasterday went to [facility] him and he was in respiratory failure with mental status changes, and he was given Lasix 80 mg IM , along with his scheduled dose of Bumex and spironolactone , along with entresto without much help, EMS was called and he was sent to the ER at [facility] were he was found to have Pulmonary edema, he was started on Lasix 40 mg IV Q 8 H along with Entresto and Toprol, spironolactone, and patient was admitted to the hospital, cardiology consultation was obtained as welll as Pulmonary consult. Patient was seen by earlier in April and had a DCG and he was supposed to have a follow up with him regarding the treatment of A.Flutter but he never connected with him since he ended in the hospital in April 25 . we really need to find what was the result of the Holter that he had and try to intervene in A.Flutter management otherwise he will continue to have recurrent hospital admission due to decompensation of his systolic heart failure. 05/16: Patient states his breathing is a little bit better from yesterday. He continues to have lower extremity edema. He has been seen by cardiology and IV Lasix was discontinued, mentalis own was added at 2.5 mg daily and spironolactone was increased to 50 mg twice daily. We will resume patient back on Lasix 80 mg IV twice daily. We will resume IV Lasix at 40 mg. His weight is down 2 kg from admission. Patient's is to bring in CPAP. 05/17: Patient was started on Lasix drip yesterday by cardiology. His weight is down 5 kg since admission. Patient states he is tired and was up urinating every hour and a half during the night. He is noted to have his legs in a dependent position, Oscar wraps in place. Patient has less pedal edema and less edema in his abdomen. Patient did not wear his CPAP last night stating that it was because he was up so frequently. His CPAP is at bedside. Noted that CO2 is up to 44. Hemoglobin 10.7, creatinine 1.28. Capillary blood glucose running between 102 and 155. Pulse ox is 97% on 3 L. Patient's been afebrile. Review Of Systems: Constitutional: No fever, no chills, no night sweats. No weight change. + weakness, +fatigue. + daytime sleepiness. EENT: No headache. No blurred vision or double vision, no loss of vision. No loss of Hearing, no ringing in the ears, no dizziness. No nasal drainage or congestion. No epistaxis. No sore throat. Lungs: +shortness of breath, +cough, + sputum production. No wheezing. Cardiovascular: No chest pain, + lower extremity edema. + palpitations. + paroxysmal nocturnal dyspnea. + orthopnea. No lightheadedness or dizziness. No syncopal episodes. Abdominal: No abdominal pain. + bloating. No nausea, vomiting. No diarrhea. No constipation. No bloody or tarry stools.. No loss of appetite. Genitourinary: No dysuria, increased frequency, urgency. No urinary retention. Musculoskeletal: No myalgias. = muscle weakness, + gait dysfunction, no frequent falls. + back pain. No neck pain. Integumentary: No wounds, no lesions. No rash or pruritus. No unusual bruising. No change in hair or nails. Neurologic: No aphasia. No facial droop. No change in mentation. No head injury. No headache. No paralysis. No paresthesia. Psychiatric: No depression. + anxiety. Endocrine: No abnormal blood sugars. No weight change. No excessive sweating or thirst. Objective - Vital Signs Vital signs: Vital Signs Temp 97.8 F 05/17/18 03:44 Pulse 100 05/17/18 03:44 Resp 20 05/17/18 03:44 BP 100/66 05/17/18 03:44 Pulse Ox 96 05/17/18 03:44 Intake & Output 05/16/18 05/17/18 05/17/18 18:59 06:59 18:59 Intake Total 710 Output Total 1999 2299 Balance -1290 -2300 Weight 146.8 kg 143.7 kg Intake: Oral 710 Output: Urine 1999 2299 Other: Voiding Method Toilet Toilet Urinal # Voids 2 - Exam General appearance: mild distress, obese, patient is sitting up in a recliner and appears to be comfortable, no acute distress noted. - EENT Eyes: anicteric sclerae, EOMI, PERRLA, no ptosis, no scleral icterus, normal appearance ENT: hard of hearing, NA/AT, normal oropharynx, no thrush Ears: bilateral: normal - Neck Neck: no lymphadenopathy, normal ROM, no rigidity, no stridor, no thyromegaly Carotids: bilateral: upstroke normal Thyroid: bilateral: normal size - Respiratory Respiratory: bilateral: diminished, negative: dullness, rales, rhonchi, wheezing , prolonged expiration - Cardiovascular Rhythm: irregularly irregular Heart sounds: normal: S1, S2 Abnormal Heart Sounds: systolic murmur - Gastrointestinal General gastrointestinal: distended, hyperactive bowel sounds, soft, no tenderness, no umbilical hernia, no ventral hernia - Integumentary Integumentary: normal, normal turgor - Neurologic Neurologic: CNII-XII intact - Musculoskeletal Musculoskeletal: generalized weakness, strength equal bilaterally, 3+ pedal edema - Psychiatric Psychiatric: A&O x's 3, appropriate affect, intact judgment & insight - Labs CBC & Chem 7: 05/17/18 06:33 05/17/18 06:33 Labs: Abnormal Lab Results - Last 24 Hours (Table) 05/15/18 05/16/18 05/16/18 Range/Units 06:28 10:45 11:26 RBC 3.40 L (4.30-5.90) m/uL Hgb 9.9 L (13.0-17.5) gm/dL Hct 31.3 L (39.0-53.0) % RDW 16.7 H (11.5-15.5) % POC Glucose (mg/dL) 202 H (75-99) mg/dL Hemoglobin A1c 8.4 H (4.0-6.0) % 05/16/18 05/16/18 05/17/18 Range/Units 16:18 20:28 05:51 RBC (4.30-5.90) m/uL Hgb (13.0-17.5) gm/dL Hct (39.0-53.0) % RDW (11.5-15.5) % POC Glucose (mg/dL) 150 H 102 H 155 H (75-99) mg/dL Hemoglobin A1c (4.0-6.0) % Microbiology - Last 24 Hours (Table) 05/14/18 18:04 Blood Culture - Preliminary Blood No Growth after 48 hours Assessment and Plan Plan: 1. Acute systolic heart failure. Lasix drip, spironolactone increased to 50 mg orally bid, Entresto 24/26 mg orally bid and Metoprolol 100 mg orally daily, we will continue with fluid restriction 1500 ml daily, daily weight, and heart failure education may need LVAD if no improvement. Metolazone 2.5 mg daily added. Cardiology consult appreciated. 2. Chronic hypercapneic and hypoxemic respiratory failure. we will continue with CPAP, O2 and duoneb 3m NEB QID along with pulmicort 1 mg NEB bid. Pulmonary consult. Patient's will bring in CPAP. 3. Advanced COPD. we will continue with Neb Rx as above. 4. Paroxysmal atrial fibrillation/Flutter. we will continue with Metoprolol 100 mg orally daily and Xarelto 20 mg orally daily, cardiology evaluation and try to get the result of the DCG that was done as outpatient with . 5. Hypertension and hypertensive cardiovascular disease. we will continue with Metoprolol 100 mg orally daily and Entresto 24/26 mg orally daily. 6. Diabetes Mellitus type 2 uncontrolled. will increase Levemir to 35 units sc qhs and will continue with Novolog 15 units AC meals tid, along with SSI, we will continue with CCA 1800 diet and BGM AC meals and at bedtime. 7. Diabetic polyneuropathy. we will contiue with Lyrica 150 mg orally qhs. 8. Restless leg syndrome. we will continue with Requip 1.5 mg orally at bedtime. 9. Hyperlipidemia. we will continue with Lipitor 20 mg orally daily. 10. Obestiy with PEDRO and OHS. we will continue with CPAP, may need his mask adjusted we will call [facility] to reevaluate. 11. Vitamin D deficiency. we will continue with vit D q week. 12. GERD . will continue with Protonix 40 mg orally daily. 13.BPH. we will continue with Flomax 0.4 mg orally daily. 14. DVT prophylaxis. we will continue with Xarelto 20 mg orally daily. 15. GI prophylaxis. we will continue with PPI. 16. Full code. Discharge plan: Return to [facility] Impression and plan of care have been directed as dictated by the signing physician. Larissa Warner nurse practitioner acting as scribe for signing physician.
--- NOTE | 2018-05-17 15:09 | P.PN ---
Subjective Progress Note Date: 05/17/18 68-year-old male patient is well-known to me who comes in again to the hospital because of worsening shortness of breath. The patient came into the ED for increased dyspnea over the past few days. He has also noted some increased swelling lower oximetry is bilaterally. According to him has gained around additional 20 pounds above and beyond his baseline. I went and looked at the records and the patient has gained significant amount of weight since summer. He denies having any significant cough or sputum production. No chest pain. He is known to have multiple medical problems and comorbidities as mentioned earlier in the medical records. Upon arrival to the hospital, the patient was also in atrial fibrillation she has been in a chronic basis and his heart rate was 101.. His white cell count is not elevated. His renal function is within normal limits. His correlation profile is also within normal limits. The BNP level is at 1040. First is of cardiac enzymes was negative. The patient currently is on a combination of Zaroxolyn 2.5 mg by mouth daily, Aldactone 50 Bmouth twice a day and he is also on metoprolol 100 mg by mouth daily and Entresto 24/26 one tablet daily and he is also on long-term medical condition with Xarelto. In terms of medical problems and comorbidities, the patient is morbidly obese and he has a BMI of 44.5. He has untreated obstructive sleep apnea as the patient was unable to tolerate CPAP therapy. He is known to have chronic atrial fibrillation. He has COPD, moderate degree of pulmonary hypertension, chronic atrial fibrillation, chronic systolic heart failure with an ejection fraction of 40%, diabetes mellitus type 2, diabetic peripheral neuropathy, restless leg syndrome, patient also has history of coronary artery disease. He has been forced LA on multiple occasions. His undergone coronary artery bypass surgery. 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 Follow-up CAT scan of the abdomen and pelvis was done last month did not show any recurrent tumor within the abdomen. His been disease free since his surgery. He is known to have chronic diverticular disease. He has also chronic pain/back pain. Patient is seen today in consultation in the cardiac floor. He is currently sitting up in a chair at the bedside. He is awake and alert in no acute distress. He is somewhat unclear as to why he was brought here from the [facility]. He does state he has ongoing shortness of breath. He is currently maintaining good O2 saturations in the 90s on 4 L per minute per nasal cannula. He is afebrile. Hemodynamically stable. The patient is seen again today 05/16/2018 in follow-up on the selective care unit. He is currently sitting up in a chair at the bedside. He is awake and alert in no acute distress. He continues to diurese well. He remains with fluid volume overload. 1-2+ peripheral edema lower extremities and in the sacral area. He remains on Lasix 80 mg IV push every 12 hours. He is maintaining good O2 saturations in the upper 90s on 4 L/m per nasal cannula. He is afebrile. Hemodynamically stable. On 05/17/2018, I am seeing this patient for a follow-up. His resting comfortably in bed. He is diuresing aggressively. His weight is down and his current BMI is 43.0. He has diuresed in order of 4 L negative fluid balance over the past 24 hours and is currently on IV Lasix. Extremities are less swollen. The patient still has lower extremity edema and pre-sacral edema. No cough. No sputum production. No chest tightness. No wheezing. No other complaints otherwise for now. He is afebrile. He is hemodynamically stable. Objective - Vital Signs Vital signs: Vital Signs Temp 97.9 F 05/17/18 11:30 Pulse 82 05/17/18 12:00 Resp 18 05/17/18 12:00 BP 89/60 05/17/18 11:30 Pulse Ox 97 05/17/18 11:30 Intake & Output 05/16/18 05/17/18 05/17/18 18:59 06:59 18:59 Intake Total 710 240 Output Total 1999 2299 Balance -1290 -2300 240 Weight 146.8 kg 143.7 kg Intake: Oral 710 240 Output: Urine 1999 2299 Other: Voiding Method Toilet Toilet Urinal # Voids 2 700 - Exam Gen. appearance obese, comfortable and mild degree of respiratory distress. Sitting up on a chair. Head exam was generally normal. There was no scleral icterus or corneal arcus. Mucous membranes were moist. Neck is short and supple and the patient is a Mallampati class IV. There is a little neck masses. Lungs sounds are diminished in lung bases bilaterally along with some limited bibasilar crackles. Breath sounds are diminished bilaterally. Heart sounds are irregular tachycardia consistent with atrial fibrillation. It is an irregular S1 and S2. No significant murmurs appreciated. Sternum stable clean and intact. Abdominal exam revealed normal bowel sounds. The abdomen was soft, non-tender, and without masses, organomegaly, or appreciable enlargement of the abdominal aorta. Extremities reveal trace ankle edema. There is no cyanosis or clubbing. No wounds or sores. Examination of the skin revealed no evidence of significant rashes, suspicious appearing nevi or other concerning lesions. Neurologically is awake and alert there is no focal neurological deficits. - Labs CBC & Chem 7: 05/17/18 06:33 05/17/18 06:33 Labs: Abnormal Lab Results - Last 24 Hours (Table) 05/15/18 05/16/18 05/16/18 Range/Units 06:28 16:18 20:28 RBC (4.30-5.90) m/uL Hgb (13.0-17.5) gm/dL Hct (39.0-53.0) % RDW (11.5-15.5) % Chloride (98-107) mmol/L Carbon Dioxide (22-30) mmol/L BUN (9-20) mg/dL Creatinine (0.66-1.25) mg/dL Glucose (74-99) mg/dL POC Glucose (mg/dL) 150 H 102 H (75-99) mg/dL Hemoglobin A1c 8.4 H (4.0-6.0) % 05/17/18 05/17/18 05/17/18 Range/Units 05:51 06:33 06:33 RBC 3.72 L (4.30-5.90) m/uL Hgb 10.7 L (13.0-17.5) gm/dL Hct 33.6 L (39.0-53.0) % RDW 16.7 H (11.5-15.5) % Chloride 85 L (98-107) mmol/L Carbon Dioxide 44 H* (22-30) mmol/L BUN 34 H (9-20) mg/dL Creatinine 1.28 H (0.66-1.25) mg/dL Glucose 141 H (74-99) mg/dL POC Glucose (mg/dL) 155 H (75-99) mg/dL Hemoglobin A1c (4.0-6.0) % 05/17/18 Range/Units 12:10 RBC (4.30-5.90) m/uL Hgb (13.0-17.5) gm/dL Hct (39.0-53.0) % RDW (11.5-15.5) % Chloride (98-107) mmol/L Carbon Dioxide (22-30) mmol/L BUN (9-20) mg/dL Creatinine (0.66-1.25) mg/dL Glucose (74-99) mg/dL POC Glucose (mg/dL) 144 H (75-99) mg/dL Hemoglobin A1c (4.0-6.0) % Microbiology - Last 24 Hours (Table) 05/14/18 18:04 Blood Culture - Preliminary Blood No Growth after 48 hours Assessment and Plan Plan: Assessment 1 acute dyspnea secondary to CHF/diastolic failure with a component of fluid overload and early pulmonary edema. This patient has chronic shortness of breath. There has been acute worsening and decompensation and the vascular status. Chest x-ray is consistent with heart failure, wide mediastinum and interstitial edema consistent with CHF and fluid overload. The patient is currently on IV Lasix. The patient is also on Zaroxolyn. 2 acute hypoxic respiratory failure on top of chronic hypoxic respiratory failure. 3 CHF with diastolic heart failure and preserved LV function, echocardiogram from 01/17/2018 shows an ejection fraction of 55-60% and concentric left ventricular hypertrophy 4 moderate degree of pulmonary hypertension 5 chronic atrial fibrillation and the patient presented with A. fib/RVR time of admission. Anticoagulated with Xarelto. 6 COPD currently inactive in stable 7 morbid obesity with a BMI of 44.5 8 diabetes mellitus type 2 9 coronary artery disease with previous myocardial infarction and previous carotid bypass surgery 10 peripheral neuropathy 11 carcinoid tumor post small bowel resection, without evidence of any recurrence based on the most recent CAT scan of the abdomen 12 obstructive sleep apnea, nontolerant to CPAP therapy 13 carotid artery disease with less than 25% stenosis at the level of the carotid bifurcation and internal carotid artery and evidence of distal disease bilaterally involving probably more than 50% Plan Continue diuretics. Monitor electrolytes. Monitor fluid balance. Clinically improving. Body weight is in the decline. Lower extremity edema is improving.. We'll continue to follow.
[2018-05-17] MEDS: RIVAROXABAN 20 MG TAB PO SCH (16:24)
[2018-05-17 16:51] LABS: Glucose,Whole Blood 217 mg/dL (75-99)
[2018-05-17 20:59] LABS: Glucose,Whole Blood 179 mg/dL (75-99)
[2018-05-17] MEDS: INSULIN DETEMIR 100 UNIT/ML 10 ML VIAL SQ SCH (21:28)
[2018-05-17] MEDS: ATORVASTATIN 20 MG TAB PO SCH (21:29)
[2018-05-17] MEDS: MELATONIN 3 MG TABLET PO SCH (21:29)
[2018-05-17] MEDS: HYDROcodone/APAP 5-325MG 1 EACH TAB PO PRN (23:34)
[2018-05-18] MEDS: IPRATROPIUM-ALBUTEROL 3 ML NEB INHALATION PRN (01:28)
[2018-05-18 06:26] LABS: Glucose,Whole Blood 196 mg/dL (75-99)
[2018-05-18 06:39] LABS: Calcium 8.8 mg/dL (8.4-10.2); Potassium 4.2 mmol/L (3.5-5.1)
[2018-05-18] MEDS: INSULIN ASPART 100 UNIT/ML 1 ML 10 ML VIAL SQ SCH ×7 (06:50→20:57)
[2018-05-18] MEDS: PANTOPRAZOLE 40 MG TABLET PO SCH (06:50)
[2018-05-18] MEDS: BUDESONIDE 1 MG/2 ML NEBU INHALATION SCH ×2 (07:57→21:16)
[2018-05-18] MEDS: IPRATROPIUM-ALBUTEROL 3 ML NEB INHALATION SCH ×4 (07:57→21:16)
[2018-05-18] MEDS: SPIRONOLACTONE 25 MG TAB PO SCH ×2 (10:05→20:17)
[2018-05-18] MEDS: TAMSULOSIN 0.4 MG CAP.ER.24H PO SCH (10:05)
[2018-05-18] MEDS: ASPIRIN 81 MG PO SCH (10:05)
[2018-05-18] MEDS: PREGABALIN 75 MG CAP PO SCH (10:06)
[2018-05-18] MEDS: METOPROLOL SUCCINATE (ER) 50 MG TAB.ER.24H PO SCH (10:06)
[2018-05-18] MEDS: guaiFENesin 600 MG TABLET.ER PO SCH ×2 (10:07→20:18)
[2018-05-18] MEDS: SACUBITRIL/VALSARTAN 24 MG-26 MG TABLET PO SCH ×2 (10:08→20:18)
[2018-05-18] MEDS: METOLAZONE 2.5 MG TAB PO SCH (10:08)
[2018-05-18 11:56] LABS: Glucose,Whole Blood 178 mg/dL (75-99)
--- NOTE | 2018-05-18 13:19 | P.PN ---
Subjective Progress Note Date: 05/18/18 Principal diagnosis: CHF exacerbation Patient stated that he feels better overall but only 25% improved since admission believes that the diuretics were working fine on D1 and D2 and currently they're back to the baseline that he has at home where he goes to the bathroom every 4-6 hours only. at the bedside thinks that he is improved but not quite back to his baseline Objective - Vital Signs Vital signs: Vital Signs Temp 97.5 F L 05/18/18 09:30 Pulse 88 05/18/18 11:42 Resp 24 05/18/18 09:30 BP 155/59 05/18/18 09:30 Pulse Ox 92 L 05/18/18 09:30 Intake & Output 05/17/18 05/18/18 05/18/18 18:59 06:59 18:59 Intake Total 730 960 240 Output Total 700 Balance 730 260 240 Weight 142.5 kg Intake: Intake, IV Titration 250 Amount Furosemide 250 mg In 250 Sodium Chloride 0.9% 225 ml @ 10 MG/HR 10 mls/hr IVP .Q24H [facility] Rx#: [id number] Oral 480 960 240 Output: Urine 700 Other: Voiding Method Toilet Toilet Urinal Urinal # Voids 700 0 - Exam Gen.: in stated age, no acute distress Heart: Normal S1-S2 Lungs: Diminished bilaterally Abdomen: Soft, no tenderness, positive bowel sounds in all 4 quadrant no guarding or rebound Skin: No new rash Psych: Alert and oriented 3 Neuro: No focal deficit Lower extremity chronic lymphedema - Labs CBC & Chem 7: 05/17/18 06:33 05/18/18 05:50 Labs: Abnormal Lab Results - Last 24 Hours (Table) 05/17/18 05/17/18 05/18/18 Range/Units 16:18 20:54 05:50 Sodium 133 L (137-145) mmol/L Chloride 81 L (98-107) mmol/L Carbon Dioxide 42 H* (22-30) mmol/L BUN 50 H (9-20) mg/dL Creatinine 1.38 H (0.66-1.25) mg/dL Glucose 148 H (74-99) mg/dL POC Glucose (mg/dL) 217 H 179 H (75-99) mg/dL 05/18/18 05/18/18 Range/Units 06:25 11:54 Sodium (137-145) mmol/L Chloride (98-107) mmol/L Carbon Dioxide (22-30) mmol/L BUN (9-20) mg/dL Creatinine (0.66-1.25) mg/dL Glucose (74-99) mg/dL POC Glucose (mg/dL) 196 H 178 H (75-99) mg/dL Microbiology - Last 24 Hours (Table) 05/14/18 18:04 Blood Culture - Preliminary Blood No Growth after 72 hours Assessment and Plan Assessment: 1. Acute congestive heart failure exacerbation, diastolic. 2. Chronic respiratory failure with hypoxia. 3. Pulmonary hypertension. 4. Obstructive sleep apnea. 5. Morbid obesity. 6. Chronic atrial fibrillation. 7. COPD 8. Diabetes mellitus type 2. 9. Peripheral neuropathy. 10. Peripheral arterial disease. 11. Carcinoid tumor status post small bowel resection. Patient currently on Lasix drip at 10 mg/h and I would like to discuss with cardiology current management monitor fluid status closely continue with daily weights, I's and O's and repeat kidney function in the morning, monitor electrolytes closely and continue cardioprotective medication consider discharging based on clinical progress. Plan discussed with at the bedside in the presence of nursing staff
[2018-05-18 16:26] LABS: Glucose,Whole Blood 204 mg/dL (75-99)
--- NOTE | 2018-05-18 16:30 | P.PN ---
Subjective Progress Note Date: 05/18/18 Principal diagnosis: Acute exacerbation of diastolic congestive heart failure 68-year-old male patient is well-known to me who comes in again to the hospital because of worsening shortness of breath. The patient came into the ED for increased dyspnea over the past few days. He has also noted some increased swelling lower oximetry is bilaterally. According to him has gained around additional 20 pounds above and beyond his baseline. I went and looked at the records and the patient has gained significant amount of weight since summer. He denies having any significant cough or sputum production. No chest pain. He is known to have multiple medical problems and comorbidities as mentioned earlier in the medical records. Upon arrival to the hospital, the patient was also in atrial fibrillation she has been in a chronic basis and his heart rate was 101.. His white cell count is not elevated. His renal function is within normal limits. His correlation profile is also within normal limits. The BNP level is at 1040. First is of cardiac enzymes was negative. The patient currently is on a combination of Zaroxolyn 2.5 mg by mouth daily, Aldactone 50 Bmouth twice a day and he is also on metoprolol 100 mg by mouth daily and Entresto 24/26 one tablet daily and he is also on long-term medical condition with Xarelto. In terms of medical problems and comorbidities, the patient is morbidly obese and he has a BMI of 44.5. He has untreated obstructive sleep apnea as the patient was unable to tolerate CPAP therapy. He is known to have chronic atrial fibrillation. He has COPD, moderate degree of pulmonary hypertension, chronic atrial fibrillation, chronic systolic heart failure with an ejection fraction of 40%, diabetes mellitus type 2, diabetic peripheral neuropathy, restless leg syndrome, patient also has history of coronary artery disease. He has been forced VT on multiple occasions. His undergone coronary artery bypass surgery. 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 Follow-up CAT scan of the abdomen and pelvis was done last month did not show any recurrent tumor within the abdomen. His been disease free since his surgery. He is known to have chronic diverticular disease. He has also chronic pain/back pain. Patient is seen today in consultation in the cardiac floor. He is currently sitting up in a chair at the bedside. He is awake and alert in no acute distress. He is somewhat unclear as to why he was brought here from the extended-care facility. He does state he has ongoing shortness of breath. He is currently maintaining good O2 saturations in the 90s on 4 L per minute per nasal cannula. He is afebrile. Hemodynamically stable. The patient is seen again today 05/16/2018 in follow-up on the selective care unit. He is currently sitting up in a chair at the bedside. He is awake and alert in no acute distress. He continues to diurese well. He remains with fluid volume overload. 1-2+ peripheral edema lower extremities and in the sacral area. He remains on Lasix 80 mg IV push every 12 hours. He is maintaining good O2 saturations in the upper 90s on 4 L/m per nasal cannula. He is afebrile. Hemodynamically stable. On 05/17/2018, I am seeing this patient for a follow-up. His resting comfortably in bed. He is diuresing aggressively. His weight is down and his current BMI is 43.0. He has diuresed in order of 4 L negative fluid balance over the past 24 hours and is currently on IV Lasix. Extremities are less swollen. The patient still has lower extremity edema and pre-sacral edema. No cough. No sputum production. No chest tightness. No wheezing. No other complaints otherwise for now. He is afebrile. He is hemodynamically stable. The patient is seen again today 05/18/2018 in follow-up on the selective care unit. He is currently sitting up in a chair at the bedside. Awake and alert in no acute distress. He is down another 2 kg. Total down 6 kg since admission. His peripheral and sacral edema has improved. Less abdominal fullness. He is maintaining good O2 saturations in the mid to upper 90s on 4 L/ m per nasal cannula. He's been afebrile. Blood cultures reveal no growth. Sodium 133. Bicarb 42. Creatinine 1.38. Remains on a Lasix drip at 10 mg per hour. Objective - Vital Signs Vital signs: Vital Signs Temp 98.1 F 05/18/18 12:00 Pulse 100 05/18/18 16:12 Resp 22 05/18/18 12:00 BP 126/60 05/18/18 12:00 Pulse Ox 92 L 05/18/18 12:00 Intake & Output 05/17/18 05/18/18 05/18/18 18:59 06:59 18:59 Intake Total 730 960 480 Output Total 700 Balance 730 260 480 Weight 142.5 kg Intake: Intake, IV Titration 250 Amount Furosemide 250 mg In 250 Sodium Chloride 0.9% 225 ml @ 10 MG/HR 10 mls/hr IVP .Q24H [facility] Rx#: [id number] Oral 480 960 480 Output: Urine 700 Other: Voiding Method Toilet Toilet Urinal Urinal # Voids 700 0 2 - Exam Gen. appearance obese, comfortable and mild degree of respiratory distress. Sitting up on a chair. Head exam was generally normal. There was no scleral icterus or corneal arcus. Mucous membranes were moist. Neck is short and supple and the patient is a Mallampati class IV. There is a little neck masses. Lungs sounds are diminished in lung bases bilaterally along with some limited bibasilar crackles. Breath sounds are diminished bilaterally. Heart sounds are irregular tachycardia consistent with atrial fibrillation. It is an irregular S1 and S2. No significant murmurs appreciated. Sternum stable clean and intact. Abdominal exam revealed normal bowel sounds. The abdomen was soft, non-tender, and without masses, organomegaly, or appreciable enlargement of the abdominal aorta. Extremities reveal trace ankle edema. There is no cyanosis or clubbing. No wounds or sores. Examination of the skin revealed no evidence of significant rashes, suspicious appearing nevi or other concerning lesions. Neurologically is awake and alert there is no focal neurological deficits. - Labs CBC & Chem 7: 05/17/18 06:33 05/18/18 05:50 Labs: Abnormal Lab Results - Last 24 Hours (Table) 05/17/18 05/17/18 05/18/18 Range/Units 16:18 20:54 05:50 Sodium 133 L (137-145) mmol/L Chloride 81 L (98-107) mmol/L Carbon Dioxide 42 H* (22-30) mmol/L BUN 50 H (9-20) mg/dL Creatinine 1.38 H (0.66-1.25) mg/dL Glucose 148 H (74-99) mg/dL POC Glucose (mg/dL) 217 H 179 H (75-99) mg/dL 05/18/18 05/18/18 Range/Units 06:25 11:54 Sodium (137-145) mmol/L Chloride (98-107) mmol/L Carbon Dioxide (22-30) mmol/L BUN (9-20) mg/dL Creatinine (0.66-1.25) mg/dL Glucose (74-99) mg/dL POC Glucose (mg/dL) 196 H 178 H (75-99) mg/dL Microbiology - Last 24 Hours (Table) 05/14/18 18:04 Blood Culture - Preliminary Blood No Growth after 72 hours Assessment and Plan Assessment: Assessment 1 acute dyspnea secondary to CHF/diastolic failure with a component of fluid overload and early pulmonary edema. This patient has chronic shortness of breath. There has been acute worsening and decompensation and the vascular status. Chest x-ray is consistent with heart failure, wide mediastinum and interstitial edema consistent with CHF and fluid overload. 2 acute hypoxic respiratory failure on top of chronic hypoxic respiratory failure. 3 CHF with diastolic heart failure and preserved LV function, echocardiogram from 01/17/2018 shows an ejection fraction of 55-60% and concentric left ventricular hypertrophy 4 moderate degree of pulmonary hypertension 5 chronic atrial fibrillation and the patient presented with A. fib/RVR time of admission. Anticoagulated with Xarelto. 6 COPD currently inactive in stable 7 morbid obesity with a BMI of 44.5 8 diabetes mellitus type 2 9 coronary artery disease with previous myocardial infarction and previous carotid bypass surgery 10 peripheral neuropathy 11 carcinoid tumor post small bowel resection, without evidence of any recurrence based on the most recent CAT scan of the abdomen 12 obstructive sleep apnea, nontolerant to CPAP therapy 13 carotid artery disease with less than 25% stenosis at the level of the carotid bifurcation and internal carotid artery and evidence of distal disease bilaterally involving probably more than 50% Plan The patient was seen and evaluated by Dr. Velazquez. He continues to lose weight , decreased edema. He is currently on a Lasix drip. We'll continue with the current treatment plan. We will increase his activity as tolerated. We'll continue to follow and make further recommendations based on his clinical status. I, the cosigning physician, performed a history & physical examination of the patient. Lungs sounds with crackles in the posterior bases, diminished. Maintaining good O2 saturations in the 90s on 4 liters per minute per nasal cannula. I discussed the assessment and plan of care with my nurse practitioner , Peyton Watts. I attest to the above note as dictated by her.
[2018-05-18] MEDS: RIVAROXABAN 20 MG TAB PO SCH (16:54)
[2018-05-18] MEDS: FUROSEMIDE 250 MG in SODIUM CHLORIDE 0.9% 225 ML IVP SCH (17:26)
[2018-05-18] MEDS: MELATONIN 3 MG TABLET PO SCH (20:18)
[2018-05-18] MEDS: ATORVASTATIN 20 MG TAB PO SCH (20:18)
[2018-05-18] MEDS: HYDROcodone/APAP 5-325MG 1 EACH TAB PO PRN (20:18)
[2018-05-18 20:52] LABS: Glucose,Whole Blood 105 mg/dL (75-99)
[2018-05-18] MEDS: INSULIN DETEMIR 100 UNIT/ML 10 ML VIAL SQ SCH (20:58)
[2018-05-19 05:40] LABS: Glucose,Whole Blood 206 mg/dL (75-99)
[2018-05-19 06:51] LABS: Anisocytosis Slight; Basophils % (A) 0 %; Eosinophils # (A) 0.3 k/uL (0-0.7); Eosinophils % (A) 4 %; HCT 33.6 % (39.0-53.0); HGB 10.5 gm/dL (13.0-17.5); Hypochromasia Moderate; Lymphocytes # (A) 1.1 k/uL (1.0-4.8); Lymphocytes % (A) 14 %; MCH 28.2 pg (25.0-35.0); MCHC 31.1 g/dL (31.0-37.0); MCV 90.7 fL (80.0-100.0); Mean Platelet Volume 7.1; Monocytes # (A) 0.5 k/uL (0-1.0); Monocytes % (A) 6 %; Neutrophils # (A) 5.4 k/uL (1.3-7.7); Neutrophils % (A) 73 %; Platelet Count 264 k/uL (150-450); Poikilocytosis Slight; RDW 16.8 % (11.5-15.5); WBC 7.5 k/uL (3.8-10.6)
[2018-05-19] MEDS: INSULIN ASPART 100 UNIT/ML 1 ML 10 ML VIAL SQ SCH ×7 (06:54→22:41)
[2018-05-19] MEDS: PANTOPRAZOLE 40 MG TABLET PO SCH (06:54)
[2018-05-19 07:09] LABS: Calcium 8.7 mg/dL (8.4-10.2); Potassium 4.4 mmol/L (3.5-5.1)
[2018-05-19] MEDS: BUDESONIDE 1 MG/2 ML NEBU INHALATION SCH ×2 (08:16→20:38)
[2018-05-19] MEDS: IPRATROPIUM-ALBUTEROL 3 ML NEB INHALATION SCH ×4 (08:16→20:38)
[2018-05-19] MEDS: TAMSULOSIN 0.4 MG CAP.ER.24H PO SCH (10:29)
[2018-05-19] MEDS: METOPROLOL SUCCINATE (ER) 50 MG TAB.ER.24H PO SCH (10:29)
[2018-05-19] MEDS: SPIRONOLACTONE 25 MG TAB PO SCH (10:30)
[2018-05-19] MEDS: guaiFENesin 600 MG TABLET.ER PO SCH ×2 (10:30→22:40)
[2018-05-19] MEDS: ASPIRIN 81 MG PO SCH (10:30)
[2018-05-19] MEDS: PREGABALIN 75 MG CAP PO SCH (10:31)
[2018-05-19] MEDS: SACUBITRIL/VALSARTAN 24 MG-26 MG TABLET PO SCH ×2 (10:40→22:00)
--- NOTE | 2018-05-19 11:33 | P.PN ---
Subjective Progress Note Date: 05/19/18 Principal diagnosis: Exacerbation of diastolic congestive heart failure 68-year-old male patient is well-known to me who comes in again to the hospital because of worsening shortness of breath. The patient came into the ED for increased dyspnea over the past few days. He has also noted some increased swelling lower oximetry is bilaterally. According to him has gained around additional 20 pounds above and beyond his baseline. I went and looked at the records and the patient has gained significant amount of weight since summer. He denies having any significant cough or sputum production. No chest pain. He is known to have multiple medical problems and comorbidities as mentioned earlier in the medical records. Upon arrival to the hospital, the patient was also in atrial fibrillation she has been in a chronic basis and his heart rate was 101.. His white cell count is not elevated. His renal function is within normal limits. His correlation profile is also within normal limits. The BNP level is at 1040. First is of cardiac enzymes was negative. The patient currently is on a combination of Zaroxolyn 2.5 mg by mouth daily, Aldactone 50 Bmouth twice a day and he is also on metoprolol 100 mg by mouth daily and Entresto 24/26 one tablet daily and he is also on long-term medical condition with Xarelto. In terms of medical problems and comorbidities, the patient is morbidly obese and he has a BMI of 44.5. He has untreated obstructive sleep apnea as the patient was unable to tolerate CPAP therapy. He is known to have chronic atrial fibrillation. He has COPD, moderate degree of pulmonary hypertension, chronic atrial fibrillation, chronic systolic heart failure with an ejection fraction of 40%, diabetes mellitus type 2, diabetic peripheral neuropathy, restless leg syndrome, patient also has history of coronary artery disease. He has been forced PA on multiple occasions. His undergone coronary artery bypass surgery. 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 Follow-up CAT scan of the abdomen and pelvis was done last month did not show any recurrent tumor within the abdomen. His been disease free since his surgery. He is known to have chronic diverticular disease. He has also chronic pain/back pain. Patient is seen today in consultation in the cardiac floor. He is currently sitting up in a chair at the bedside. He is awake and alert in no acute distress. He is somewhat unclear as to why he was brought here from the extended-care facility. He does state he has ongoing shortness of breath. He is currently maintaining good O2 saturations in the 90s on 4 L per minute per nasal cannula. He is afebrile. Hemodynamically stable. The patient is seen again today 05/16/2018 in follow-up on the selective care unit. He is currently sitting up in a chair at the bedside. He is awake and alert in no acute distress. He continues to diurese well. He remains with fluid volume overload. 1-2+ peripheral edema lower extremities and in the sacral area. He remains on Lasix 80 mg IV push every 12 hours. He is maintaining good O2 saturations in the upper 90s on 4 L/m per nasal cannula. He is afebrile. Hemodynamically stable. On 05/17/2018, I am seeing this patient for a follow-up. His resting comfortably in bed. He is diuresing aggressively. His weight is down and his current BMI is 43.0. He has diuresed in order of 4 L negative fluid balance over the past 24 hours and is currently on IV Lasix. Extremities are less swollen. The patient still has lower extremity edema and pre-sacral edema. No cough. No sputum production. No chest tightness. No wheezing. No other complaints otherwise for now. He is afebrile. He is hemodynamically stable. The patient is seen again today 05/18/2018 in follow-up on the selective care unit. He is currently sitting up in a chair at the bedside. Awake and alert in no acute distress. He is down another 2 kg. Total down 6 kg since admission. His peripheral and sacral edema has improved. Less abdominal fullness. He is maintaining good O2 saturations in the mid to upper 90s on 4 L/ m per nasal cannula. He's been afebrile. Blood cultures reveal no growth. Sodium 133. Bicarb 42. Creatinine 1.38. Remains on a Lasix drip at 10 mg per hour. On 05/19/2018 patient seen in follow-up on selective care unit. He is awake and alert, sitting up in the recliner, in no acute distress, eyes worsening dyspnea or chest pain, currently on 4 L per nasal cannula his pulse ox is 93%, I 'll signs are stable, patient remains on Lasix drip at 10 mg per hour, and his urine output is decreased, and patient is actually in positive fluid balance over the last 24 hours. Blood work has been reviewed, showed WBC of 7.5, hemoglobin of 10.5, sodium of 134 potassium 4.4, CO2 is 41, and patient's renal profile continues to worsen, BUN is 67 creatinine 1.6. Patient still has 2+ bilateral lower extremity edema, his legs have been raymon wrapped. Patient states he is having voice hoarseness, which has been bothering him for last week , the states this has been going on for several months. No thrush noted upon inspection of the oropharynx Objective - Vital Signs Vital signs: Vital Signs Temp 98.4 F 05/19/18 00:00 Pulse 88 05/19/18 08:32 Resp 24 05/19/18 04:00 BP 96/57 05/19/18 04:00 Pulse Ox 93 L 05/19/18 04:00 Intake & Output 05/18/18 05/19/18 05/19/18 18:59 06:59 18:59 Intake Total 944.833 960 240 Output Total 600 Balance 944.833 360 240 Weight 142.7 kg Intake: Intake, IV Titration 224.833 Amount Furosemide 250 mg In 224.833 Sodium Chloride 0.9% 225 ml @ 10 MG/HR 10 mls/hr IVP .Q24H [facility] Rx#: [id number] Oral 720 960 240 Output: Urine 600 Other: Voiding Method Toilet Toilet Urinal Urinal # Voids 2 0 - Exam Gen. appearance obese, comfortable and mild degree of respiratory distress. Sitting up on a chair. Head exam was generally normal. There was no scleral icterus or corneal arcus. Mucous membranes were moist. Neck is short and supple and the patient is a Mallampati class IV. There is a little neck masses. Lungs sounds are diminished in lung bases bilaterally along with some limited bibasilar crackles. Breath sounds are diminished bilaterally. Heart sounds are irregular tachycardia consistent with atrial fibrillation. It is an irregular S1 and S2. No significant murmurs appreciated. Sternum stable clean and intact. Abdominal exam revealed normal bowel sounds. The abdomen was soft, non-tender, and without masses, organomegaly, or appreciable enlargement of the abdominal aorta. Extremities reveal trace ankle edema. There is no cyanosis or clubbing. No wounds or sores. Examination of the skin revealed no evidence of significant rashes, suspicious appearing nevi or other concerning lesions. Neurologically is awake and alert there is no focal neurological deficits. - Labs CBC & Chem 7: 05/19/18 05:31 05/19/18 05:31 Labs: Abnormal Lab Results - Last 24 Hours (Table) 05/18/18 05/18/18 05/18/18 Range/Units 11:54 16:22 20:51 RBC (4.30-5.90) m/uL Hgb (13.0-17.5) gm/dL Hct (39.0-53.0) % RDW (11.5-15.5) % Sodium (137-145) mmol/L Chloride (98-107) mmol/L Carbon Dioxide (22-30) mmol/L BUN (9-20) mg/dL Creatinine (0.66-1.25) mg/dL Glucose (74-99) mg/dL POC Glucose (mg/dL) 178 H 204 H 105 H (75-99) mg/dL 05/19/18 05/19/18 05/19/18 Range/Units 05:31 05:31 05:37 RBC 3.70 L (4.30-5.90) m/uL Hgb 10.5 L (13.0-17.5) gm/dL Hct 33.6 L (39.0-53.0) % RDW 16.8 H (11.5-15.5) % Sodium 134 L (137-145) mmol/L Chloride 82 L (98-107) mmol/L Carbon Dioxide 41 H* (22-30) mmol/L BUN 67 H (9-20) mg/dL Creatinine 1.66 H (0.66-1.25) mg/dL Glucose 161 H (74-99) mg/dL POC Glucose (mg/dL) 206 H (75-99) mg/dL Microbiology - Last 24 Hours (Table) 05/14/18 18:04 Blood Culture - Preliminary Blood No Growth after 96 hours Assessment and Plan Plan: 1 acute dyspnea secondary to CHF/diastolic failure with a component of fluid overload and early pulmonary edema. This patient has chronic shortness of breath. There has been acute worsening and decompensation and the vascular status. Chest x-ray is consistent with heart failure, wide mediastinum and interstitial edema consistent with CHF and fluid overload. 2 acute hypoxic respiratory failure on top of chronic hypoxic respiratory failure. 3 CHF with diastolic heart failure and preserved LV function, echocardiogram from 01/17/2018 shows an ejection fraction of 55-60% and concentric left ventricular hypertrophy 4 moderate degree of pulmonary hypertension 5 chronic atrial fibrillation and the patient presented with A. fib/RVR time of admission. Anticoagulated with Xarelto. 6 COPD currently inactive in stable 7 morbid obesity with a BMI of 44.5 8 diabetes mellitus type 2 9 coronary artery disease with previous myocardial infarction and previous carotid bypass surgery 10 peripheral neuropathy 11 carcinoid tumor post small bowel resection, without evidence of any recurrence based on the most recent CAT scan of the abdomen 12 obstructive sleep apnea, nontolerant to CPAP therapy 13 carotid artery disease with less than 25% stenosis at the level of the carotid bifurcation and internal carotid artery and evidence of distal disease bilaterally involving probably more than 50% Plan: Patient's Zaroxolyn has been increased by the attending physician, patient remains on Lasix drip, his urine output has decreased, and patient is actually in the positive fluid balance, but clinically patient is awake and alert, in no acute distress, no worsening dyspnea or chest pain. Still has some bilateral lower extremity edema. Patient's renal profile is worsening, continue to monitor the renal profile and electrolytes. Patient is in no distress. Current medical treatment, I performed a history & physical examination of the patient and discussed their management with my nurse practitioner, Ketty Loja. I reviewed the nurse practitioner's note and agree with the documented findings and plan of care. Lung sounds are positive for bibasilar crackles. The findings and the impression was discussed with the patient. I attest to the documentation by the nurse practitioner. Time with Patient: Less than 30
[2018-05-19] MEDS: METOLAZONE 5 MG TAB PO SCH (11:35)
[2018-05-19 12:01] LABS: Glucose,Whole Blood 165 mg/dL (75-99)
[2018-05-19] MEDS: HYDROcodone/APAP 5-325MG 1 EACH TAB PO PRN (13:49)
--- NOTE | 2018-05-19 14:39 | P.PN ---
Subjective Progress Note Date: 05/19/18 This is a 68-year-old gentleman who was admitted to the hospital with congestive heart failure. Patient was treated with IV Lasix drip and patient describes that he is feeling better. He is diuresing well. Patient was put on Zaroxolyn 5 mg. We will discontinue IV Lasix drip and start him IV Lasix 80 mg by mouth twice a day. Rest of the medication to be continued. His lab work showed high creatinine of about 1.6 Objective - Vital Signs Vital signs: Vital Signs Temp 97.6 F 05/19/18 11:57 Pulse 104 H 05/19/18 12:56 Resp 20 05/19/18 12:00 BP 80/40 05/19/18 11:57 Pulse Ox 96 05/19/18 11:57 Intake & Output 05/18/18 05/19/18 05/19/18 18:59 06:59 18:59 Intake Total 944.833 960 480 Output Total 600 1 Balance 944.833 360 479 Weight 142.7 kg Intake: Intake, IV Titration 224.833 Amount Furosemide 250 mg In 224.833 Sodium Chloride 0.9% 225 ml @ 10 MG/HR 10 mls/hr IVP .Q24H [facility] Rx#: [id number] Oral 720 960 480 Output: Urine 600 Stool 1 Other: Voiding Method Toilet Toilet Toilet Urinal Urinal Urinal # Voids 2 0 - Exam GENERAL EXAM: Patient is alert and oriented and doesn't appear to be in any acute distress HEENT: Normocephalic. Normal reaction of pupils, equal size, normal range of extraocular motion. No erythema or exudates in the throat. NECK: No masses, no nuchal rigidity. CHEST: No chest wall deformity. LUNGS: Her also and rhonchi noted HEART: S1 and S2 normal with no audible mumurs or gallops. Regular rhythm, femorals equal on both sides.. ABDOMEN: No hepatosplenomegaly, normal bowel sounds, no guarding or rigidity. SKIN: No rashes CENTRAL NERVOUS SYSTEM: No focal deficits. EXTREMITIES: No cyanosis, clubbing or edema. - Labs CBC & Chem 7: 05/19/18 05:31 05/19/18 05:31 Labs: Abnormal Lab Results - Last 24 Hours (Table) 05/18/18 05/18/18 05/19/18 Range/Units 16:22 20:51 05:31 RBC (4.30-5.90) m/uL Hgb (13.0-17.5) gm/dL Hct (39.0-53.0) % RDW (11.5-15.5) % Sodium 134 L (137-145) mmol/L Chloride 82 L (98-107) mmol/L Carbon Dioxide 41 H* (22-30) mmol/L BUN 67 H (9-20) mg/dL Creatinine 1.66 H (0.66-1.25) mg/dL Glucose 161 H (74-99) mg/dL POC Glucose (mg/dL) 204 H 105 H (75-99) mg/dL 05/19/18 05/19/18 05/19/18 Range/Units 05:31 05:37 11:59 RBC 3.70 L (4.30-5.90) m/uL Hgb 10.5 L (13.0-17.5) gm/dL Hct 33.6 L (39.0-53.0) % RDW 16.8 H (11.5-15.5) % Sodium (137-145) mmol/L Chloride (98-107) mmol/L Carbon Dioxide (22-30) mmol/L BUN (9-20) mg/dL Creatinine (0.66-1.25) mg/dL Glucose (74-99) mg/dL POC Glucose (mg/dL) 206 H 165 H (75-99) mg/dL Microbiology - Last 24 Hours (Table) 05/14/18 18:04 Blood Culture - Preliminary Blood No Growth after 96 hours Assessment and Plan (1) Acute pulmonary edema Current Visit: Yes Status: Acute Code(s): J81.0 - ACUTE PULMONARY EDEMA SNOMED Code(s): 38681849 (2) A-fib Current Visit: No Status: Acute Code(s): I48.91 - UNSPECIFIED ATRIAL FIBRILLATION SNOMED Code(s): 17506096 (3) Altered mental status Current Visit: No Status: Acute Code(s): R41.82 - ALTERED MENTAL STATUS, UNSPECIFIED SNOMED Code(s): 846515168 (4) COPD (chronic obstructive pulmonary disease) Current Visit: No Status: Acute Code(s): J44.9 - CHRONIC OBSTRUCTIVE PULMONARY DISEASE, UNSPECIFIED SNOMED Code(s): 88876660 Plan: Continue current medical therapy. Switch from IV Lasix drip to boluses off IV Lasix. Follow BMP closely
[2018-05-19] MEDS: METOLAZONE 2.5 MG TAB PO SCH (14:59)
--- NOTE | 2018-05-19 15:48 | P.PN ---
Subjective Progress Note Date: 05/19/18 Principal diagnosis: CHF exacerbation Patient seems to be stable since yesterday still with good urine output on Lasix drip 10 mg per hour but his bicarbonate continue to increase above 40 today Objective - Vital Signs Vital signs: Vital Signs Temp 97.6 F 05/19/18 11:57 Pulse 104 H 05/19/18 12:56 Resp 20 05/19/18 12:00 BP 80/40 05/19/18 11:57 Pulse Ox 96 05/19/18 11:57 Intake & Output 05/18/18 05/19/18 05/19/18 18:59 06:59 18:59 Intake Total 944.833 960 480 Output Total 600 1 Balance 944.833 360 479 Weight 142.7 kg Intake: Intake, IV Titration 224.833 Amount Furosemide 250 mg In 224.833 Sodium Chloride 0.9% 225 ml @ 10 MG/HR 10 mls/hr IVP .Q24H [facility] Rx#: [id number] Oral 720 960 480 Output: Urine 600 Stool 1 Other: Voiding Method Toilet Toilet Toilet Urinal Urinal Urinal # Voids 2 0 - Exam Gen.: in stated age, no acute distress Heart: Normal S1-S2 Lungs: Diminished bilaterally Abdomen: Soft, no tenderness, positive bowel sounds in all 4 quadrant no guarding or rebound Skin: No new rash Psych: Alert and oriented 3 Neuro: No focal deficit Lower extremity chronic lymphedema - Labs CBC & Chem 7: 05/19/18 05:31 05/19/18 05:31 Labs: Abnormal Lab Results - Last 24 Hours (Table) 05/18/18 05/18/18 05/19/18 Range/Units 16:22 20:51 05:31 RBC (4.30-5.90) m/uL Hgb (13.0-17.5) gm/dL Hct (39.0-53.0) % RDW (11.5-15.5) % Sodium 134 L (137-145) mmol/L Chloride 82 L (98-107) mmol/L Carbon Dioxide 41 H* (22-30) mmol/L BUN 67 H (9-20) mg/dL Creatinine 1.66 H (0.66-1.25) mg/dL Glucose 161 H (74-99) mg/dL POC Glucose (mg/dL) 204 H 105 H (75-99) mg/dL 05/19/18 05/19/18 05/19/18 Range/Units 05:31 05:37 11:59 RBC 3.70 L (4.30-5.90) m/uL Hgb 10.5 L (13.0-17.5) gm/dL Hct 33.6 L (39.0-53.0) % RDW 16.8 H (11.5-15.5) % Sodium (137-145) mmol/L Chloride (98-107) mmol/L Carbon Dioxide (22-30) mmol/L BUN (9-20) mg/dL Creatinine (0.66-1.25) mg/dL Glucose (74-99) mg/dL POC Glucose (mg/dL) 206 H 165 H (75-99) mg/dL Microbiology - Last 24 Hours (Table) 05/14/18 18:04 Blood Culture - Preliminary Blood No Growth after 96 hours Assessment and Plan Assessment: 1. Acute congestive heart failure exacerbation, diastolic. 2. Chronic respiratory failure with hypoxia. 3. Pulmonary hypertension. 4. Obstructive sleep apnea. 5. Morbid obesity. 6. Chronic atrial fibrillation. 7. COPD 8. Diabetes mellitus type 2. 9. Peripheral neuropathy. 10. Peripheral arterial disease. 11. Carcinoid tumor status post small bowel resection. I would like to discuss with cardiology currently 6 to consider switching to IV Lasix every 6 hours and transition to oral medication and also I would like to add Zaroxolyn 5 mg twice daily monitor his white count closely and repeat electrolytes in the morning. We'll continue with leg elevation and Oscar wrap. Discharge planning based on cardiology recommendation
[2018-05-19 17:25] LABS: Glucose,Whole Blood 207 mg/dL (75-99)
[2018-05-19] MEDS: RIVAROXABAN 20 MG TAB PO SCH (17:47)
[2018-05-19] MEDS: ACETAMINOPHEN TAB 325 MG TAB PO PRN (18:45)
[2018-05-19 19:49] LABS: Glucose,Whole Blood 174 mg/dL (75-99)
[2018-05-19] MEDS: FUROSEMIDE 10 MG/ML 10 ML VIAL IV SCH (21:58)
[2018-05-19] MEDS ORDERED: SODIUM CHLORIDE 0.9% 500 ML 500 ML IV ONE (22:04)
[2018-05-19] MEDS: ATORVASTATIN 20 MG TAB PO SCH (22:40)
[2018-05-19] MEDS: MELATONIN 3 MG TABLET PO SCH (22:40)
[2018-05-19] MEDS: INSULIN DETEMIR 100 UNIT/ML 10 ML VIAL SQ SCH (22:41)
[2018-05-20 05:49] LABS: Glucose,Whole Blood 139 mg/dL (75-99)
[2018-05-20] MEDS: INSULIN ASPART 100 UNIT/ML 1 ML 10 ML VIAL SQ SCH ×6 (06:33→17:38)
[2018-05-20] MEDS: PANTOPRAZOLE 40 MG TABLET PO SCH (06:33)
[2018-05-20 07:21] LABS: Calcium 8.8 mg/dL (8.4-10.2); Potassium 4.8 mmol/L (3.5-5.1)
[2018-05-20] MEDS: PREGABALIN 75 MG CAP PO SCH (08:07)
[2018-05-20] MEDS: SACUBITRIL/VALSARTAN 24 MG-26 MG TABLET PO SCH (08:08)
[2018-05-20] MEDS: guaiFENesin 600 MG TABLET.ER PO SCH ×2 (08:08→22:12)
[2018-05-20] MEDS: TAMSULOSIN 0.4 MG CAP.ER.24H PO SCH (08:08)
[2018-05-20] MEDS: ASPIRIN 81 MG PO SCH (08:08)
[2018-05-20] MEDS: FUROSEMIDE 10 MG/ML 10 ML VIAL IV SCH (08:08)
[2018-05-20] MEDS: METOPROLOL SUCCINATE (ER) 50 MG TAB.ER.24H PO SCH (08:08)
[2018-05-20] MEDS: METOLAZONE 5 MG TAB PO SCH ×2 (08:09)
[2018-05-20] MEDS: SPIRONOLACTONE 25 MG TAB PO SCH ×2 (08:09)
[2018-05-20] MEDS: HYDROcodone/APAP 5-325MG 1 EACH TAB PO PRN (08:15)
[2018-05-20] MEDS: BUDESONIDE 1 MG/2 ML NEBU INHALATION SCH ×2 (08:28→21:24)
[2018-05-20] MEDS: IPRATROPIUM-ALBUTEROL 3 ML NEB INHALATION SCH ×4 (08:28→21:24)
[2018-05-20 11:47] LABS: Glucose,Whole Blood 156 mg/dL (75-99)
--- NOTE | 2018-05-20 15:53 | P.PN ---
Subjective Progress Note Date: 05/20/18 This is a 68-year-old male one of my patient wih known history of chronic hypercapnic and hypoxemic respiratory failure, advanced COPD with moderate pulmonary hypertension, known paroxysmal atrial fibrillation/ Flutter on long-term anticoagulation, chronic systolic heart heart failure with a recent EF 40% , restless leg, diabetes mellitus type 2, with diabetic polyneuropathy, patient was recently hospitalized at [facility] from till 05/03/2018 after he was admitted for acute hypercapneic and hypoxemic respiratory failure and acute systolic heart failure and he was sent to [facility] for PT and OT , I was following the patient very closely at [facility] and I was seening him twice per week and he was given multiple injectinons of lasix due to sudden ncrease in his weight and he was plced on CPAP most of the time, yeasterday went to [facility] and he was in respiratory failure with mental status changes, and he was given Lasix 80 mg IM , along with his scheduled dose of Bumex and spironolactone , along with entresto without much help, EMS was called and he was sent to the ER at [facility] were he was found to have Pulmonary edema, he was started on Lasix 40 mg IV Q 8 H along with Entresto and Toprol, spironolactone, and patient was admitted to the hospital, cardiology consultation was obtained as welll as Pulmonary consult. Patient was seen by earlier in April and had a DCG and he was supposed to have a follow up with him regarding the treatment of A.Flutter but he never connected with him since he ended in the hospital in April 25 . we really need to find what was the result of the Holter that he had and try to intervene in A.Flutter management otherwise he will continue to have recurrent hospital admission due to decompensation of his systolic heart failure. 05/16: Patient states his breathing is a little bit better from yesterday. He continues to have lower extremity edema. He has been seen by cardiology and IV Lasix was discontinued, mentalis own was added at 2.5 mg daily and spironolactone was increased to 50 mg twice daily. We will resume patient back on Lasix 80 mg IV twice daily. We will resume IV Lasix at 40 mg. His weight is down 2 kg from admission. Patient's is to bring in CPAP. 05/17: Patient was started on Lasix drip yesterday by cardiology. His weight is down 5 kg since admission. Patient states he is tired and was up urinating every hour and a half during the night. He is noted to have his legs in a dependent position, Oscar wraps in place. Patient has less pedal edema and less edema in his abdomen. Patient did not wear his CPAP last night stating that it was because he was up so frequently. His CPAP is at bedside. Noted that CO2 is up to 44. Hemoglobin 10.7, creatinine 1.28. Capillary blood glucose running between 102 and 155. Pulse ox is 97% on 3 L. Patient's been afebrile. 05/20: Yesterday, patient was transitioned off Lasix drip and is on IV Lasix at 80 mg IV every 12 hours but he does not have IV access. Cardiology state they will address. Patient states he has not been urinating much since he's been off the drip. He continues to have lower extremity edema. Anticipate he will be ready for discharge the next 24 hours. Review Of Systems: Constitutional: No fever, no chills, no night sweats. No weight change. + weakness, +fatigue. no daytime sleepiness. EENT: No headache. No blurred vision or double vision, no loss of vision. No loss of Hearing, no ringing in the ears, no dizziness. No nasal drainage or congestion. No epistaxis. No sore throat. Lungs: +shortness of breath, +cough, no sputum production. No wheezing. Cardiovascular: No chest pain, + lower extremity edema. + palpitations. + paroxysmal nocturnal dyspnea. + orthopnea. No lightheadedness or dizziness. No syncopal episodes. Abdominal: No abdominal pain. + bloating. No nausea, vomiting. No diarrhea. No constipation. No bloody or tarry stools.. No loss of appetite. Genitourinary: No dysuria, increased frequency, urgency. No urinary retention. Musculoskeletal: No myalgias. = muscle weakness, + gait dysfunction, no frequent falls. + back pain. No neck pain. Integumentary: No wounds, no lesions. No rash or pruritus. No unusual bruising. No change in hair or nails. Neurologic: No aphasia. No facial droop. No change in mentation. No head injury. No headache. No paralysis. No paresthesia. Psychiatric: No depression. + anxiety. Endocrine: No abnormal blood sugars. No weight change. No excessive sweating or thirst. Objective - Vital Signs Vital signs: Vital Signs Temp 97.9 F 05/20/18 12:00 Pulse 101 H 05/20/18 12:00 Resp 18 05/20/18 12:00 BP 95/61 05/20/18 12:00 Pulse Ox 96 05/20/18 12:00 Intake & Output 05/19/18 05/20/18 05/20/18 18:59 06:59 18:59 Intake Total 720 480 702 Output Total 1 750 Balance 719 480 -48 Weight 144.7 kg Intake: Oral 720 480 702 Output: Urine 750 Stool 1 Other: Voiding Method Toilet Urinal Urinal # Bowel Movements 1 - Exam General appearance: mild distress, obese, patient is sitting up in a recliner and appears to be comfortable, no acute distress noted. - EENT Eyes: anicteric sclerae, EOMI, PERRLA, no ptosis, no scleral icterus, normal appearance ENT: hard of hearing, NA/AT, normal oropharynx, no thrush Ears: bilateral: normal - Neck Neck: no lymphadenopathy, normal ROM, no rigidity, no stridor, no thyromegaly Carotids: bilateral: upstroke normal Thyroid: bilateral: normal size - Respiratory Respiratory: bilateral: diminished, negative: dullness, rales, rhonchi, wheezing , prolonged expiration - Cardiovascular Rhythm: irregularly irregular Heart sounds: normal: S1, S2 Abnormal Heart Sounds: systolic murmur - Gastrointestinal General gastrointestinal: distended, hyperactive bowel sounds, soft, no tenderness, no umbilical hernia, no ventral hernia - Integumentary Integumentary: normal, normal turgor - Neurologic Neurologic: CNII-XII intact - Musculoskeletal Musculoskeletal: generalized weakness, strength equal bilaterally, 2+ pedal edema - Psychiatric Psychiatric: A&O x's 3, appropriate affect, intact judgment & insight - Labs CBC & Chem 7: 05/19/18 05:31 05/20/18 06:10 Labs: Abnormal Lab Results - Last 24 Hours (Table) 05/19/18 05/19/1818 Range/Units 17:23 19:47 05:48 Sodium (137-145) mmol/L Chloride (98-107) mmol/L Carbon Dioxide (22-30) mmol/L BUN (9-20) mg/dL Creatinine (0.66-1.25) mg/dL Glucose (74-99) mg/dL POC Glucose (mg/dL) 207 H 174 H 139 H (75-99) mg/dL 05/20/18 05/20/18 Range/Units 06:10 11:37 Sodium 132 L (137-145) mmol/L Chloride 82 L (98-107) mmol/L Carbon Dioxide 39 H (22-30) mmol/L BUN 78 H (9-20) mg/dL Creatinine 1.78 H (0.66-1.25) mg/dL Glucose 120 H (74-99) mg/dL POC Glucose (mg/dL) 156 H (75-99) mg/dL Microbiology - Last 24 Hours (Table) 05/14/18 18:04 Blood Culture - Preliminary Blood No Growth after 120 hours Assessment and Plan Plan: 1. Acute on chronic diastolic heart failure. Continue IV Lasix, Zaroxolyn 5 mg daily, Aldactone 50 mg twice daily and Entresto 25/26 twice daily. Cardiology consult appreciated. 2. Chronic hypercapneic and hypoxemic respiratory failure. we will continue with CPAP, O2 and duoneb 3m NEB QID along with pulmicort 1 mg NEB bid. Pulmonary consult. 3. Advanced COPD. we will continue with Neb Rx as above. 4. Paroxysmal atrial fibrillation/Flutter. we will continue with Metoprolol 100 mg orally daily and Xarelto 20 mg orally daily, cardiology evaluation and try to get the result of the DCG that was done as outpatient with . 5. Hypertension and hypertensive cardiovascular disease. we will continue with Metoprolol 100 mg orally daily and Entresto 24/26 mg orally daily. 6. Diabetes Mellitus type 2 uncontrolled. Continue Levemir to 32 units sc qhs and will continue with Novolog 12-15 units AC meals tid, along with SSI, we will continue with CCA 1800 diet and BGM AC meals and at bedtime. 7. Diabetic polyneuropathy. we will contiue with Lyrica 150 mg orally qhs. 8. Restless leg syndrome. we will continue with Requip 1.5 mg orally at bedtime. 9. Hyperlipidemia. we will continue with Lipitor 20 mg orally daily. 10. Obestiy with PEDRO and OHS. we will continue with CPAP, may need his mask adjusted we will call [facility] to reevaluate. 11. Vitamin D deficiency. we will continue with vit D q week. 12. GERD . will continue with Protonix 40 mg orally daily. 13.BPH. we will continue with Flomax 0.4 mg orally daily. 14. DVT prophylaxis. we will continue with Xarelto 20 mg orally daily. 15. GI prophylaxis. we will continue with PPI. 16. Full code. Discharge plan: Return to [facility] tomorrow Impression and plan of care have been directed as dictated by the signing physician. Larissa Warner nurse practitioner acting as scribe for signing physician.
[2018-05-20 16:17] LABS: Glucose,Whole Blood 200 mg/dL (75-99)
--- NOTE | 2018-05-20 16:21 | PN ---
PROGRESS NOTE This patient was admitted with acute on chronic systolic diastolic heart failure. Patient is feeling better. Patient has lost about 5 to 6 kg of weight. He is feeling better. He continues to still have some edema over the legs. Heart rate is 100. Oxygen saturation is 96%. Blood pressure is 100/61 mmHg. First and second heart sounds are normal. Lungs are clinically clear to auscultation and percussion. There is a 2+ pedal edema. Patient's creatinine has increased to 1.78. We will decrease the Zaroxolyn to 5 mg daily. IV Lasix is discontinued and we will put the patient on Bumex 2 mg b.i.d. If patient remains stable, patient can be discharged home tomorrow. We will recommend following patient's BUN and creatinine once a week. MMODL / IJN: [id number] /
--- NOTE | 2018-05-20 17:27 | P.PN ---
Subjective Progress Note Date: 05/20/18 Principal diagnosis: Exacerbation of diastolic congestive heart failure 68-year-old male patient is well-known to me who comes in again to the hospital because of worsening shortness of breath. The patient came into the ED for increased dyspnea over the past few days. He has also noted some increased swelling lower oximetry is bilaterally. According to him has gained around additional 20 pounds above and beyond his baseline. I went and looked at the records and the patient has gained significant amount of weight since summer. He denies having any significant cough or sputum production. No chest pain. He is known to have multiple medical problems and comorbidities as mentioned earlier in the medical records. Upon arrival to the hospital, the patient was also in atrial fibrillation she has been in a chronic basis and his heart rate was 101.. His white cell count is not elevated. His renal function is within normal limits. His correlation profile is also within normal limits. The BNP level is at 1040. First is of cardiac enzymes was negative. The patient currently is on a combination of Zaroxolyn 2.5 mg by mouth daily, Aldactone 50 Bmouth twice a day and he is also on metoprolol 100 mg by mouth daily and Entresto 24/26 one tablet daily and he is also on long-term medical condition with Xarelto. In terms of medical problems and comorbidities, the patient is morbidly obese and he has a BMI of 44.5. He has untreated obstructive sleep apnea as the patient was unable to tolerate CPAP therapy. He is known to have chronic atrial fibrillation. He has COPD, moderate degree of pulmonary hypertension, chronic atrial fibrillation, chronic systolic heart failure with an ejection fraction of 40%, diabetes mellitus type 2, diabetic peripheral neuropathy, restless leg syndrome, patient also has history of coronary artery disease. He has been forced MN on multiple occasions. His undergone coronary artery bypass surgery. 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 Follow-up CAT scan of the abdomen and pelvis was done last month did not show any recurrent tumor within the abdomen. His been disease free since his surgery. He is known to have chronic diverticular disease. He has also chronic pain/back pain. Patient is seen today in consultation in the cardiac floor. He is currently sitting up in a chair at the bedside. He is awake and alert in no acute distress. He is somewhat unclear as to why he was brought here from the extended-care facility. He does state he has ongoing shortness of breath. He is currently maintaining good O2 saturations in the 90s on 4 L per minute per nasal cannula. He is afebrile. Hemodynamically stable. The patient is seen again today 05/16/2018 in follow-up on the selective care unit. He is currently sitting up in a chair at the bedside. He is awake and alert in no acute distress. He continues to diurese well. He remains with fluid volume overload. 1-2+ peripheral edema lower extremities and in the sacral area. He remains on Lasix 80 mg IV push every 12 hours. He is maintaining good O2 saturations in the upper 90s on 4 L/m per nasal cannula. He is afebrile. Hemodynamically stable. On 05/17/2018, I am seeing this patient for a follow-up. His resting comfortably in bed. He is diuresing aggressively. His weight is down and his current BMI is 43.0. He has diuresed in order of 4 L negative fluid balance over the past 24 hours and is currently on IV Lasix. Extremities are less swollen. The patient still has lower extremity edema and pre-sacral edema. No cough. No sputum production. No chest tightness. No wheezing. No other complaints otherwise for now. He is afebrile. He is hemodynamically stable. The patient is seen again today 05/18/2018 in follow-up on the selective care unit. He is currently sitting up in a chair at the bedside. Awake and alert in no acute distress. He is down another 2 kg. Total down 6 kg since admission. His peripheral and sacral edema has improved. Less abdominal fullness. He is maintaining good O2 saturations in the mid to upper 90s on 4 L/ m per nasal cannula. He's been afebrile. Blood cultures reveal no growth. Sodium 133. Bicarb 42. Creatinine 1.38. Remains on a Lasix drip at 10 mg per hour. On 05/19/2018 patient seen in follow-up on selective care unit. He is awake and alert, sitting up in the recliner, in no acute distress, eyes worsening dyspnea or chest pain, currently on 4 L per nasal cannula his pulse ox is 93%, I 'll signs are stable, patient remains on Lasix drip at 10 mg per hour, and his urine output is decreased, and patient is actually in positive fluid balance over the last 24 hours. Blood work has been reviewed, showed WBC of 7.5, hemoglobin of 10.5, sodium of 134 potassium 4.4, CO2 is 41, and patient's renal profile continues to worsen, BUN is 67 creatinine 1.6. Patient still has 2+ bilateral lower extremity edema, his legs have been raymon wrapped. Patient states he is having voice hoarseness, which has been bothering him for last week , the states this has been going on for several months. No thrush noted upon inspection of the oropharynx. On 05/20/2018 patient seen in follow-up on selective care unit, he is awake and alert, in no acute distress, no worsening shortness of breath or chest pain. Patient has lost his IV access, and after multiple tries we were unable to establish access, Lasix drip has been transitioned to IV push Lasix 80 mg twice daily, probably have to be switched to oral Lasix. Lung sounds are diminished, no rhonchi, no wheezes. Is currently on 3 L per nasal cannula his pulse ox of 96%, he is afebrile, hemodynamically stable. Lab work has been reviewed, renal profile continues to worsen, with B1 up to 78, creatinine is 1.78. She is in positive fluid balance, and today's weight has shown an increase of 2 kg. Cultures are negative, no fever no chills, cough, no chest congestion, no wheezing Objective - Vital Signs Vital signs: Vital Signs Temp 97.9 F 05/20/18 12:00 Pulse 101 H 05/20/18 12:00 Resp 18 05/20/18 12:00 BP 95/61 05/20/18 12:00 Pulse Ox 96 05/20/18 12:00 Intake & Output 05/19/18 05/20/18 05/20/18 18:59 06:59 18:59 Intake Total 720 480 480 Output Total 1 Balance 719 480 480 Weight 144.7 kg Intake: Oral 720 480 480 Output: Stool 1 Other: Voiding Method Toilet Urinal Urinal # Bowel Movements 1 - Exam Gen. appearance obese, comfortable and mild degree of respiratory distress. Sitting up on a chair. Head exam was generally normal. There was no scleral icterus or corneal arcus. Mucous membranes were moist. Neck is short and supple and the patient is a Mallampati class IV. There is a little neck masses. Lungs sounds are diminished in lung bases bilaterally . Breath sounds are diminished bilaterally. Heart sounds are irregular tachycardia consistent with atrial fibrillation. It is an irregular S1 and S2. No significant murmurs appreciated. Sternum stable clean and intact. Abdominal exam revealed normal bowel sounds. The abdomen was soft, non-tender, and without masses, organomegaly, or appreciable enlargement of the abdominal aorta. Extremities reveal trace ankle edema. There is no cyanosis or clubbing. No wounds or sores. Examination of the skin revealed no evidence of significant rashes, suspicious appearing nevi or other concerning lesions. Neurologically is awake and alert there is no focal neurological deficits. - Labs CBC & Chem 7: 05/19/18 05:31 05/20/18 06:10 Labs: Abnormal Lab Results - Last 24 Hours (Table) 05/19/18 05/19/18 05/20/18 Range/Units 17:23 19:47 05:48 Sodium (137-145) mmol/L Chloride (98-107) mmol/L Carbon Dioxide (22-30) mmol/L BUN (9-20) mg/dL Creatinine (0.66-1.25) mg/dL Glucose (74-99) mg/dL POC Glucose (mg/dL) 207 H 174 H 139 H (75-99) mg/dL 05/20/18 05/20/18 Range/Units 06:10 11:37 Sodium 132 L (137-145) mmol/L Chloride 82 L (98-107) mmol/L Carbon Dioxide 39 H (22-30) mmol/L BUN 78 H (9-20) mg/dL Creatinine 1.78 H (0.66-1.25) mg/dL Glucose 120 H (74-99) mg/dL POC Glucose (mg/dL) 156 H (75-99) mg/dL Microbiology - Last 24 Hours (Table) 05/14/18 18:04 Blood Culture - Preliminary Blood No Growth after 120 hours Assessment and Plan Plan: 1 acute dyspnea secondary to CHF/diastolic failure with a component of fluid overload and early pulmonary edema. This patient has chronic shortness of breath. There has been acute worsening and decompensation and the vascular status. Chest x-ray is consistent with heart failure, wide mediastinum and interstitial edema consistent with CHF and fluid overload. 2 acute hypoxic respiratory failure on top of chronic hypoxic respiratory failure. 3 CHF with diastolic heart failure and preserved LV function, echocardiogram from 01/17/2018 shows an ejection fraction of 55-60% and concentric left ventricular hypertrophy 4 moderate degree of pulmonary hypertension 5 chronic atrial fibrillation and the patient presented with A. fib/RVR time of admission. Anticoagulated with Xarelto. 6 COPD currently inactive in stable 7 morbid obesity with a BMI of 44.5 8 diabetes mellitus type 2 9 coronary artery disease with previous myocardial infarction and previous carotid bypass surgery 10 peripheral neuropathy 11 carcinoid tumor post small bowel resection, without evidence of any recurrence based on the most recent CAT scan of the abdomen 12 obstructive sleep apnea, nontolerant to CPAP therapy 13 carotid artery disease with less than 25% stenosis at the level of the carotid bifurcation and internal carotid artery and evidence of distal disease bilaterally involving probably more than 50% Plan: Patient's IV access was lost this morning, and so far have been able to establish IV access, patient denies any dyspnea or chest pain, he still has bilateral lower extremity edema, and his weight has increased 2 kg in the last 24 hours, IV Lasix will have to be switched to oral unable to put an IV in. Continue with Zaroxolyn, continue nebulized bronchodilators. I performed a history & physical examination of the patient and discussed their management with my nurse practitioner, Ketty Loja. I reviewed the nurse practitioner's note and agree with the documented findings and plan of care. Lung sounds are positive for bibasilar crackles. The findings and the impression was discussed with the patient. I attest to the documentation by the nurse practitioner. Time with Patient: Less than 30
[2018-05-20] MEDS: ACETAMINOPHEN TAB 325 MG TAB PO PRN (17:34)
[2018-05-20] MEDS: RIVAROXABAN 15 MG TAB PO SCH (17:38)
[2018-05-20 20:20] LABS: Glucose,Whole Blood 81 mg/dL (75-99)
[2018-05-20] MEDS ORDERED: MIDODRINE 5 MG TAB PO STA (21:54)
[2018-05-20] MEDS: ATORVASTATIN 20 MG TAB PO SCH (22:12)
[2018-05-20 22:27] LABS: Glucose,Whole Blood 102 mg/dL (75-99)
[2018-05-20] MEDS: INSULIN DETEMIR 100 UNIT/ML 10 ML VIAL SQ SCH (22:55)
[2018-05-20] MEDS ORDERED: ALPRAZolam 0.25 MG TAB PO STA (23:17)
[2018-05-20 23:35] LABS: ABG Base Excess 13.9 mmol/L; ABG HCO3 39 mmol/L (21-25); ABG PCO2 66 mmHg (35-45); ABG PH 7.38 (7.35-7.45); ABG PO2 62 mmHg (83-108); ABG TCO2 41 mmol/L (19-24)
[2018-05-21] MEDS ORDERED: FUROSEMIDE 80 MG TAB PO STA (00:13)
[2018-05-21] MEDS: MELATONIN 3 MG TABLET PO SCH ×2 (00:43→21:11)
[2018-05-21] MEDS: INSULIN ASPART 100 UNIT/ML 1 ML 10 ML VIAL SQ SCH ×8 (01:46→21:12)
[2018-05-21] MEDS: SACUBITRIL/VALSARTAN 24 MG-26 MG TABLET PO SCH ×3 (01:46→20:55)
[2018-05-21] MEDS: SPIRONOLACTONE 25 MG TAB PO SCH ×3 (01:46→20:55)
[2018-05-21] MEDS: BUMETANIDE 1 MG TAB PO SCH ×2 (01:46→08:11)
[2018-05-21 05:49] LABS: Glucose,Whole Blood 183 mg/dL (75-99)
[2018-05-21] MEDS: PANTOPRAZOLE 40 MG TABLET PO SCH (06:39)
[2018-05-21] MEDS: BUDESONIDE 1 MG/2 ML NEBU INHALATION SCH ×2 (07:44→20:27)
[2018-05-21] MEDS: IPRATROPIUM-ALBUTEROL 3 ML NEB INHALATION SCH ×4 (07:44→20:27)
[2018-05-21] MEDS: ASPIRIN 81 MG PO SCH (08:10)
[2018-05-21] MEDS: TAMSULOSIN 0.4 MG CAP.ER.24H PO SCH (08:10)
[2018-05-21] MEDS: guaiFENesin 600 MG TABLET.ER PO SCH ×2 (08:11→21:10)
[2018-05-21] MEDS: METOLAZONE 5 MG TAB PO SCH (08:11)
[2018-05-21] MEDS: PREGABALIN 75 MG CAP PO SCH (08:11)
--- NOTE | 2018-05-21 08:13 | XR ---
EXAMINATION TYPE: XR chest 2V DATE OF EXAM: 05/21/2018 COMPARISON: Prior chest x-ray 05/15/2018 HISTORY: Congestive heart failure TECHNIQUE: Frontal and lateral views of the chest are obtained. FINDINGS: There is no focal air space opacity, pleural effusion, or pneumothorax seen. The cardiac silhouette size is stable and enlarged. Persistent mediastinal widening noted. Patient is post media n sternotomy and interstitium is increased. The osseous structures are intact. Prominent lung volumes compatible with underlying COPD. Epicardial pacing leads are in place. IMPRESSION: Findings compatible with congestive heart failure.
[2018-05-21] MEDS: METOPROLOL SUCCINATE (ER) 50 MG TAB.ER.24H PO SCH (08:51)
[2018-05-21 10:01] LABS: Calcium 8.9 mg/dL (8.4-10.2); Potassium 5.4 mmol/L (3.5-5.1)
[2018-05-21 10:41] LABS: ABG Base Excess 16.6 mmol/L; ABG PCO2 66 mmHg (35-45); ABG PH 7.41 (7.35-7.45); ABG PO2 73 mmHg (83-108); ABG TCO2 43 mmol/L (19-24)
--- NOTE | 2018-05-21 10:58 | P.PN ---
Subjective Progress Note Date: 05/21/18 Principal diagnosis: Exacerbation of diastolic congestive heart failure 68-year-old male patient is well-known to me who comes in again to the hospital because of worsening shortness of breath. The patient came into the ED for increased dyspnea over the past few days. He has also noted some increased swelling lower oximetry is bilaterally. According to him has gained around additional 20 pounds above and beyond his baseline. I went and looked at the records and the patient has gained significant amount of weight since summer. He denies having any significant cough or sputum production. No chest pain. He is known to have multiple medical problems and comorbidities as mentioned earlier in the medical records. Upon arrival to the hospital, the patient was also in atrial fibrillation she has been in a chronic basis and his heart rate was 101.. His white cell count is not elevated. His renal function is within normal limits. His correlation profile is also within normal limits. The BNP level is at 1040. First is of cardiac enzymes was negative. The patient currently is on a combination of Zaroxolyn 2.5 mg by mouth daily, Aldactone 50 Bmouth twice a day and he is also on metoprolol 100 mg by mouth daily and Entresto 24/26 one tablet daily and he is also on long-term medical condition with Xarelto. In terms of medical problems and comorbidities, the patient is morbidly obese and he has a BMI of 44.5. He has untreated obstructive sleep apnea as the patient was unable to tolerate CPAP therapy. He is known to have chronic atrial fibrillation. He has COPD, moderate degree of pulmonary hypertension, chronic atrial fibrillation, chronic systolic heart failure with an ejection fraction of 40%, diabetes mellitus type 2, diabetic peripheral neuropathy, restless leg syndrome, patient also has history of coronary artery disease. He has been forced DE on multiple occasions. His undergone coronary artery bypass surgery. 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 Follow-up CAT scan of the abdomen and pelvis was done last month did not show any recurrent tumor within the abdomen. His been disease free since his surgery. He is known to have chronic diverticular disease. He has also chronic pain/back pain. Patient is seen today in consultation in the cardiac floor. He is currently sitting up in a chair at the bedside. He is awake and alert in no acute distress. He is somewhat unclear as to why he was brought here from the extended-care facility. He does state he has ongoing shortness of breath. He is currently maintaining good O2 saturations in the 90s on 4 L per minute per nasal cannula. He is afebrile. Hemodynamically stable. The patient is seen again today 05/16/2018 in follow-up on the selective care unit. He is currently sitting up in a chair at the bedside. He is awake and alert in no acute distress. He continues to diurese well. He remains with fluid volume overload. 1-2+ peripheral edema lower extremities and in the sacral area. He remains on Lasix 80 mg IV push every 12 hours. He is maintaining good O2 saturations in the upper 90s on 4 L/m per nasal cannula. He is afebrile. Hemodynamically stable. On 05/17/2018, I am seeing this patient for a follow-up. His resting comfortably in bed. He is diuresing aggressively. His weight is down and his current BMI is 43.0. He has diuresed in order of 4 L negative fluid balance over the past 24 hours and is currently on IV Lasix. Extremities are less swollen. The patient still has lower extremity edema and pre-sacral edema. No cough. No sputum production. No chest tightness. No wheezing. No other complaints otherwise for now. He is afebrile. He is hemodynamically stable. The patient is seen again today 05/18/2018 in follow-up on the selective care unit. He is currently sitting up in a chair at the bedside. Awake and alert in no acute distress. He is down another 2 kg. Total down 6 kg since admission. His peripheral and sacral edema has improved. Less abdominal fullness. He is maintaining good O2 saturations in the mid to upper 90s on 4 L/ m per nasal cannula. He's been afebrile. Blood cultures reveal no growth. Sodium 133. Bicarb 42. Creatinine 1.38. Remains on a Lasix drip at 10 mg per hour. On 05/19/2018 patient seen in follow-up on selective care unit. He is awake and alert, sitting up in the recliner, in no acute distress, eyes worsening dyspnea or chest pain, currently on 4 L per nasal cannula his pulse ox is 93%, I 'll signs are stable, patient remains on Lasix drip at 10 mg per hour, and his urine output is decreased, and patient is actually in positive fluid balance over the last 24 hours. Blood work has been reviewed, showed WBC of 7.5, hemoglobin of 10.5, sodium of 134 potassium 4.4, CO2 is 41, and patient's renal profile continues to worsen, BUN is 67 creatinine 1.6. Patient still has 2+ bilateral lower extremity edema, his legs have been raymon wrapped. Patient states he is having voice hoarseness, which has been bothering him for last week , the states this has been going on for several months. No thrush noted upon inspection of the oropharynx. On 05/20/2018 patient seen in follow-up on selective care unit, he is awake and alert, in no acute distress, no worsening shortness of breath or chest pain. Patient has lost his IV access, and after multiple tries we were unable to establish access, Lasix drip has been transitioned to IV push Lasix 80 mg twice daily, probably have to be switched to oral Lasix. Lung sounds are diminished, no rhonchi, no wheezes. Is currently on 3 L per nasal cannula his pulse ox of 96%, he is afebrile, hemodynamically stable. Lab work has been reviewed, renal profile continues to worsen, with B1 up to 78, creatinine is 1.78. She is in positive fluid balance, and today's weight has shown an increase of 2 kg. Cultures are negative, no fever no chills, cough, no chest congestion, no wheezing On 05/21/2018 patient seen in follow-up on selective care unit. Patient had a fall last night, no apparent injury. Blood gas was obtained, and showed pO2 of 62, pCO2 of 66, and pH of 7.38, this was done on FiO2 of 36%, patient denied hitting his head, vitals were stable. Patient was started on oral Bumex yesterday, he receive additional dose of oral Lasix 80 mg early this morning, this morning's chest x-ray shows increased interstitium, changes consistent with congestive heart failure, this was compared to previous chest x-ray from and shows improvement in aeration of bilateral bases, and improvement in the appearance of bilateral pleural effusions. Patient is refusing to wear the BiPAP, he states the mask is very uncomfortable, and suffocating him. He does have his CPAP unit from home, and we will try to have him wear his CPAP unit at bedtime and as needed during the day. Remains afebrile, pulse ox on 4 L per nasal cannula is 97%, this morning patient is alert, oriented to place, and person, where he is intermittently confused, and impulsive. Patient is attempting to ambulate without waiting for help, he coming increasingly more agitated when the safety alarm goes off in his bed. he is threatening to leave AGAINST MEDICAL ADVICE. Lung sounds reveal better air entry bilaterally, no crackles, no wheezes or rhonchi. Denies any chest pain, denies any worsening shortness of breath, he still has extensive edema in his bilateral lower extremities. Patient still has no IV access, and per attending physician it was okay to leave the IVs out. This morning's labs have been reviewed and showed sodium of 131, potassium is 5.4, chloride is 83, CO2 is 42, Bun is 86 and creatinine is 1.5. Repeat gas this morning showed pO2 of 73, pCO2 65, and pH of 7.4 on FiO2 of 32%. We will continue current medical treatment, will continue with oral diuretics, Aldactone, Zaroxolyn. Patient can wear his CPAP unit from home. critical care registered nurse will be placed at the bedside. Objective - Vital Signs Vital signs: Vital Signs Temp 98.0 F 05/21/18 08:00 Pulse 94 05/21/18 08:04 Resp 20 05/21/18 08:00 BP 105/62 05/21/18 08:00 Pulse Ox 97 05/21/18 08:00 Intake & Output 05/20/18 05/21/18 05/21/18 18:59 06:59 18:59 Intake Total 942 360 Output Total 750 1160 400 Balance 192 -1160 -40 Weight 145.3 kg Intake: Oral 942 360 Output: Urine 750 900 400 Uretheral (Mcgill) 300 Post Void Residual 260 Other: Voiding Method Bedside Commode Bedside Commode Urinal Urinal Diaper Diaper # Voids 1 # Bowel Movements 1 - Exam Gen. appearance obese, comfortable and mild degree of respiratory distress. Sitting up on a chair. Head exam was generally normal. There was no scleral icterus or corneal arcus. Mucous membranes were moist. Neck is short and supple and the patient is a Mallampati class IV. There is a little neck masses. Lungs sounds are diminished in lung bases bilaterally . Breath sounds are diminished bilaterally. Heart sounds are irregular tachycardia consistent with atrial fibrillation. It is an irregular S1 and S2. No significant murmurs appreciated. Sternum stable clean and intact. Abdominal exam revealed normal bowel sounds. The abdomen was soft, non-tender, and without masses, organomegaly, or appreciable enlargement of the abdominal aorta. Extremities reveal 2+ pitting leg, ankle edema. There is no cyanosis or clubbing. No wounds or sores. Examination of the skin revealed no evidence of significant rashes, suspicious appearing nevi or other concerning lesions. Neurologically is awake and alert there is no focal neurological deficits. Patient was noted to be intermittently confused - Labs CBC & Chem 7: 05/19/18 05:31 05/21/18 09:05 Labs: Abnormal Lab Results - Last 24 Hours (Table) 05/20/18 05/20/18 05/20/18 Range/Units 11:37 16:15 22:15 ABG pCO2 (35-45) mmHg ABG pO2 (83-108) mmHg ABG HCO3 (21-25) mmol/L ABG Total CO2 (19-24) mmol/L ABG O2 Saturation (94-97) % Sodium (137-145) mmol/L Potassium (3.5-5.1) mmol/L Chloride (98-107) mmol/L Carbon Dioxide (22-30) mmol/L BUN (9-20) mg/dL Creatinine (0.66-1.25) mg/dL Glucose (74-99) mg/dL POC Glucose (mg/dL) 156 H 200 H 102 H (75-99) mg/dL 05/20/18 05/21/18 05/21/18 Range/Units 23:30 05:47 09:05 ABG pCO2 66 H (35-45) mmHg ABG pO2 62 L (83-108) mmHg ABG HCO3 39 H (21-25) mmol/L ABG Total CO2 41 H (19-24) mmol/L ABG O2 Saturation 89.0 L (94-97) % Sodium 131 L (137-145) mmol/L Potassium 5.4 H (3.5-5.1) mmol/L Chloride 83 L (98-107) mmol/L Carbon Dioxide 42 H* (22-30) mmol/L BUN 86 H (9-20) mg/dL Creatinine 1.50 H (0.66-1.25) mg/dL Glucose 196 H (74-99) mg/dL POC Glucose (mg/dL) 183 H (75-99) mg/dL Microbiology - Last 24 Hours (Table) 05/14/18 18:04 Blood Culture - Final Blood No Growth after 144 hours Assessment and Plan Plan: 1 acute dyspnea secondary to CHF/diastolic failure with a component of fluid overload and early pulmonary edema. This patient has chronic shortness of breath. There has been acute worsening and decompensation and the vascular status. Chest x-ray is consistent with heart failure, wide mediastinum and interstitial edema consistent with CHF and fluid overload. 2 acute hypoxic respiratory failure on top of chronic hypoxic respiratory failure. 3 CHF with diastolic heart failure and preserved LV function, echocardiogram from 01/17/2018 shows an ejection fraction of 55-60% and concentric left ventricular hypertrophy 4 moderate degree of pulmonary hypertension 5 chronic atrial fibrillation and the patient presented with A. fib/RVR time of admission. Anticoagulated with Xarelto. 6 COPD currently inactive in stable 7 morbid obesity with a BMI of 44.5 8 diabetes mellitus type 2 9 coronary artery disease with previous myocardial infarction and previous carotid bypass surgery 10 peripheral neuropathy 11 carcinoid tumor post small bowel resection, without evidence of any recurrence based on the most recent CAT scan of the abdomen 12 obstructive sleep apnea, nontolerant to CPAP therapy 13 carotid artery disease with less than 25% stenosis at the level of the carotid bifurcation and internal carotid artery and evidence of distal disease bilaterally involving probably more than 50% Plan: Repeat blood gas was obtained, and reviewed, there was actually improved compared to last night. Patient can wear his CPAP unit from home at bedtime, and intermittently through the day. Continue with oral diuretics, continue with acurate I&O, daily weights. Today's chest x-ray has been reviewed, and shows improvement in aeration of the bilateral bases, improvement in the bilateral pleural effusions since admission. We'll place a water safety instructor at the bedside, patient is quite impulsive and intermittent confused. We'll continue to follow. I performed a history & physical examination of the patient and discussed their management with my nurse practitioner, Ketty Loja. I reviewed the nurse practitioner's note and agree with the documented findings and plan of care. Lung sounds are diminished breath sounds at the bases. The findings and the impression was discussed with the patient. I attest to the documentation by the nurse practitioner. Time with Patient: Less than 30
[2018-05-21 12:08] LABS: Glucose,Whole Blood 183 mg/dL (75-99)
[2018-05-21] MEDS: MIDODRINE 5 MG TAB PO SCH ×2 (13:24→17:37)
[2018-05-21] MEDS: AMMONIUM LACTATE 12% LOTION 225 GM BTL TOPICAL SCH ×2 (13:25→21:11)
--- NOTE | 2018-05-21 14:11 | XR ---
Abdomen HISTORY: Distention Frontal view of the abdomen on 2 images Comparison to prior exam 04/25/2018 Postop change is noted to the lower lumbar spine. Soft tissue density is increased over the abdomen. No evident bowel obstruction or pneumoperitoneum. Heart is enlarged, patient is post median sternotom y. Inferior sternal wire is fractured. Difficult to exclude pleural effusions. Vascular calcification s noted in the pelvis. Osteoarthritic change noted in the hips. There may be a component of femoral a cetabular impingement. Degenerative disc changes in the visualized spine. IMPRESSION: There may be underlying ascites. Increased soft tissue limits evaluation of the exam.
--- NOTE | 2018-05-21 15:24 | P.PN ---
Subjective Progress Note Date: 05/21/18 This is a 68-year-old male one of my patient wih known history of chronic hypercapnic and hypoxemic respiratory failure, advanced COPD with moderate pulmonary hypertension, known paroxysmal atrial fibrillation/ Flutter on long-term anticoagulation, chronic systolic heart heart failure with a recent EF 40% , restless leg, diabetes mellitus type 2, with diabetic polyneuropathy, patient was recently hospitalized at [facility] from till 05/03/2018 after he was admitted for acute hypercapneic and hypoxemic respiratory failure and acute systolic heart failure and he was sent to [facility] for PT and OT , I was following the patient very closely at [facility] and I was seening him twice per week and he was given multiple injectinons of lasix due to sudden ncrease in his weight and he was plced on CPAP most of the time, yeasterday went to [facility] him and he was in respiratory failure with mental status changes, and he was given Lasix 80 mg IM , along with his scheduled dose of Bumex and spironolactone , along with entresto without much help, EMS was called and he was sent to the ER at [facility] were he was found to have Pulmonary edema, he was started on Lasix 40 mg IV Q 8 H along with Entresto and Toprol, spironolactone, and patient was admitted to the hospital, cardiology consultation was obtained as welll as Pulmonary consult. Patient was seen by earlier in April and had a DCG and he was supposed to have a follow up with him regarding the treatment of A.Flutter but he never connected with him since he ended in the hospital in April 25 . we really need to find what was the result of the Holter that he had and try to intervene in A.Flutter management otherwise he will continue to have recurrent hospital admission due to decompensation of his systolic heart failure. 05/16: Patient states his breathing is a little bit better from yesterday. He continues to have lower extremity edema. He has been seen by cardiology and IV Lasix was discontinued, mentalis own was added at 2.5 mg daily and spironolactone was increased to 50 mg twice daily. We will resume patient back on Lasix 80 mg IV twice daily. We will resume IV Lasix at 40 mg. His weight is down 2 kg from admission. Patient's is to bring in CPAP. 05/17: Patient was started on Lasix drip yesterday by cardiology. His weight is down 5 kg since admission. Patient states he is tired and was up urinating every hour and a half during the night. He is noted to have his legs in a dependent position, Oscar wraps in place. Patient has less pedal edema and less edema in his abdomen. Patient did not wear his CPAP last night stating that it was because he was up so frequently. His CPAP is at bedside. Noted that CO2 is up to 44. Hemoglobin 10.7, creatinine 1.28. Capillary blood glucose running between 102 and 155. Pulse ox is 97% on 3 L. Patient's been afebrile. 05/20: Yesterday, patient was transitioned off Lasix drip and is on IV Lasix at 80 mg IV every 12 hours but he does not have IV access. Cardiology state they will address. Patient states he has not been urinating much since he's been off the drip. He continues to have lower extremity edema. Anticipate he will be ready for discharge the next 24 hours. 05/21: Last evening, patient became very confused and he was found on the floor by the main door. Patient denied any injury. ABGs were done the pH is 7.38, pCO2 66, PaO2 62, bicarb 39, total CO2 41 O2 saturation 89. Ammonia level is less than 9 and proBNP was 923. His Entresto and Aldactone was held last evening again this morning due to hypotension. He had a chest x-ray that shows heart failure. His weight is up from previous. He is currently on oral Bumex. Patient is diuresing well today. The patient is on CPAP. He apparently was lucid this morning and then around 9:00 had change in mental status with confusion. He is currently on CPAP. Heart rate has been running anywhere from 90-138. Review Of Systems: Constitutional: No fever, no chills, no night sweats. No weight change. + weakness, +fatigue. no daytime sleepiness. EENT: No headache. No blurred vision or double vision, no loss of vision. No loss of Hearing, no ringing in the ears, no dizziness. No nasal drainage or congestion. No epistaxis. No sore throat. Lungs: +shortness of breath, +cough, no sputum production. No wheezing. Cardiovascular: No chest pain, + lower extremity edema. + palpitations. + paroxysmal nocturnal dyspnea. + orthopnea. No lightheadedness or dizziness. No syncopal episodes. Abdominal: No abdominal pain. + bloating. No nausea, vomiting. No diarrhea. No constipation. No bloody or tarry stools.. No loss of appetite. Genitourinary: No dysuria, increased frequency, urgency. No urinary retention. Musculoskeletal: No myalgias. +muscle weakness, + gait dysfunction, no frequent falls. + back pain. No neck pain. Integumentary: No wounds, no lesions. No rash or pruritus. No unusual bruising. No change in hair or nails. Neurologic: No aphasia. No facial droop. + change in mentation. No head injury. No headache. No paralysis. No paresthesia. Psychiatric: No depression. + anxiety. Endocrine: No abnormal blood sugars. No weight change. No excessive sweating or thirst. Objective - Vital Signs Vital signs: Vital Signs Temp 98.4 F 05/21/18 04:40 Pulse 94 05/21/18 08:04 Resp 24 05/21/18 04:40 BP 108/61 05/21/18 04:40 Pulse Ox 95 05/21/18 07:46 Intake & Output 05/20/18 05/21/18 05/21/18 18:59 06:59 18:59 Intake Total 942 Output Total 750 1160 400 Balance 192 -1160 -400 Weight 145.3 kg Intake: Oral 942 Output: Urine 750 900 400 Uretheral (Mcgill) 300 Post Void Residual 260 Other: Voiding Method Bedside Commode Urinal Diaper # Voids 1 # Bowel Movements 1 - Exam General appearance: no distress, obese, patient is in bed and appears to be comfortable - EENT Eyes: anicteric sclerae, EOMI, PERRLA, no ptosis, no scleral icterus, normal appearance ENT: hard of hearing, NA/AT, normal oropharynx, no thrush Ears: bilateral: normal - Neck Neck: no lymphadenopathy, normal ROM, no rigidity, no stridor, no thyromegaly Carotids: bilateral: upstroke normal Thyroid: bilateral: normal size - Respiratory Respiratory: bilateral: diminished, negative: dullness, rales, rhonchi, wheezing , prolonged expiration, patient on BiPAP - Cardiovascular Rhythm: irregularly irregular Heart sounds: normal: S1, S2 Abnormal Heart Sounds: systolic murmur - Gastrointestinal General gastrointestinal: distended, hyperactive bowel sounds, soft, no tenderness, no umbilical hernia, no ventral hernia - Integumentary Integumentary: normal, normal turgor - Neurologic Neurologic: CNII-XII intact - Musculoskeletal Musculoskeletal: generalized weakness, strength equal bilaterally, 2+ pedal edema - Psychiatric Psychiatric: A&O x's 1, no appropriate affect, no intact judgment & insight - Labs CBC & Chem 7: 05/19/18 05:31 05/21/18 09:05 Labs: Abnormal Lab Results - Last 24 Hours (Table) 05/20/18 05/20/18 05/20/18 Range/Units 11:37 16:15 22:15 ABG pCO2 (35-45) mmHg ABG pO2 (83-108) mmHg ABG HCO3 (21-25) mmol/L ABG Total CO2 (19-24) mmol/L ABG O2 Saturation (94-97) % POC Glucose (mg/dL) 156 H 200 H 102 H (75-99) mg/dL 05/20/18 05/21/18 Range/Units 23:30 05:47 ABG pCO2 66 H (35-45) mmHg ABG pO2 62 L (83-108) mmHg ABG HCO3 39 H (21-25) mmol/L ABG Total CO2 41 H (19-24) mmol/L ABG O2 Saturation 89.0 L (94-97) % POC Glucose (mg/dL) 183 H (75-99) mg/dL Microbiology - Last 24 Hours (Table) 05/14/18 18:04 Blood Culture - Final Blood No Growth after 144 hours Assessment and Plan Plan: 1. Acute on chronic diastolic heart failure with acute on chronic hypercapnic and hypoxic respiratory failure secondary to pulmonary hypertension and sleep apnea. Continue IV Lasix changed to oral Bumex, Zaroxolyn 5 mg daily, Aldactone 50 mg twice daily and Entresto 25/26 twice daily. Cardiology consult appreciated. 2. Chronic hypercapneic and hypoxemic respiratory failure. we will continue with CPAP, O2 and duoneb 3m NEB QID along with pulmicort 1 mg NEB bid. Pulmonary consult. 3. Advanced COPD. we will continue with Neb Rx as above. 4. Paroxysmal atrial fibrillation/Flutter. we will continue with Metoprolol 100 mg orally daily and Xarelto 20 mg orally daily, cardiology evaluation and try to get the result of the DCG that was done as outpatient with . 5. Hypertension and hypertensive cardiovascular disease. we will continue with Metoprolol 100 mg orally daily and Entresto 24/26 mg orally daily. 6. Diabetes Mellitus type 2 uncontrolled. Continue Levemir to 32 units sc qhs and will continue with Novolog 12-15 units AC meals tid, along with SSI, we will continue with CCA 1800 diet and BGM AC meals and at bedtime. 7. Diabetic polyneuropathy. we will contiue with Lyrica 150 mg orally qhs. 8. Restless leg syndrome. we will continue with Requip 1.5 mg orally at bedtime. 9. Hyperlipidemia. we will continue with Lipitor 20 mg orally daily. 10. Obestiy with PEDRO and OHS. we will continue with CPAP, may need his mask adjusted we will call [facility] to reevaluate. 11. Vitamin D deficiency. we will continue with vit D q week. 12. GERD . will continue with Protonix 40 mg orally daily. 13.BPH. we will continue with Flomax 0.4 mg orally daily. 14. DVT prophylaxis. we will continue with Xarelto 20 mg orally daily. 15. GI prophylaxis. we will continue with PPI. 16. Full code. 17. Metabolic encephalopathy secondary to hypercapnia. Discharge plan: Return to [facility] tomorrow Impression and plan of care have been directed as dictated by the signing physician. Larissa Warner nurse practitioner acting as scribe for signing physician.
[2018-05-21 17:20] LABS: Glucose,Whole Blood 131 mg/dL (75-99)
[2018-05-21] MEDS: FUROSEMIDE 10 MG/ML 4 ML VIAL IV SCH (17:37)
[2018-05-21] MEDS: RIVAROXABAN 15 MG TAB PO SCH (17:37)
[2018-05-21] MEDS: INSULIN DETEMIR 100 UNIT/ML 10 ML VIAL SQ SCH (21:11)
[2018-05-21] MEDS: ATORVASTATIN 20 MG TAB PO SCH (21:11)
[2018-05-21 21:16] LABS: Glucose,Whole Blood 181 mg/dL (75-99)
[2018-05-21] MEDS ORDERED: MIDODRINE 5 MG TAB PO ONE (21:30)
[2018-05-22] MEDS: FUROSEMIDE 10 MG/ML 4 ML VIAL IV SCH ×4 (03:57→23:59)
[2018-05-22] MEDS: MIDODRINE 5 MG TAB PO SCH ×3 (06:37→17:33)
[2018-05-22] MEDS: PANTOPRAZOLE 40 MG TABLET PO SCH (06:37)
[2018-05-22 07:00] LABS: Glucose,Whole Blood 119 mg/dL (75-99)
[2018-05-22] MEDS: INSULIN ASPART 100 UNIT/ML 1 ML 10 ML VIAL SQ SCH ×7 (07:02→21:44)
[2018-05-22 07:22] LABS: Calcium 9.1 mg/dL (8.4-10.2); Potassium 4.5 mmol/L (3.5-5.1)
[2018-05-22] MEDS: AMMONIUM LACTATE 12% LOTION 225 GM BTL TOPICAL SCH ×2 (08:31→21:43)
[2018-05-22] MEDS: TAMSULOSIN 0.4 MG CAP.ER.24H PO SCH (08:31)
[2018-05-22] MEDS: PREGABALIN 75 MG CAP PO SCH (08:32)
[2018-05-22] MEDS: guaiFENesin 600 MG TABLET.ER PO SCH ×2 (08:32→21:44)
[2018-05-22] MEDS: ASPIRIN 81 MG PO SCH (08:32)
[2018-05-22] MEDS: METOLAZONE 5 MG TAB PO SCH (08:33)
[2018-05-22] MEDS: SPIRONOLACTONE 25 MG TAB PO SCH ×2 (08:33→21:50)
[2018-05-22] MEDS: IPRATROPIUM-ALBUTEROL 3 ML NEB INHALATION SCH ×4 (09:04→20:45)
[2018-05-22] MEDS: BUDESONIDE 1 MG/2 ML NEBU INHALATION SCH ×2 (09:05→20:45)
[2018-05-22] MEDS: METOPROLOL SUCCINATE (ER) 50 MG TAB.ER.24H PO SCH (09:25)
[2018-05-22] MEDS: SACUBITRIL/VALSARTAN 24 MG-26 MG TABLET PO SCH ×2 (10:31→21:50)
[2018-05-22 11:27] LABS: Glucose,Whole Blood 352 mg/dL (75-99)
[2018-05-22] MEDS: MAGNESIUM SULFATE-D5W PMX 1 GM in DEXTROSE/WATER 1 100ML.BAG IVPB SCH ×2 (12:15→13:03)
--- NOTE | 2018-05-22 13:43 | P.PN ---
Subjective Progress Note Date: 05/22/18 Principal diagnosis: Exacerbation of diastolic congestive heart failure 68-year-old male patient is well-known to me who comes in again to the hospital because of worsening shortness of breath. The patient came into the ED for increased dyspnea over the past few days. He has also noted some increased swelling lower oximetry is bilaterally. According to him has gained around additional 20 pounds above and beyond his baseline. I went and looked at the records and the patient has gained significant amount of weight since summer. He denies having any significant cough or sputum production. No chest pain. He is known to have multiple medical problems and comorbidities as mentioned earlier in the medical records. Upon arrival to the hospital, the patient was also in atrial fibrillation she has been in a chronic basis and his heart rate was 101.. His white cell count is not elevated. His renal function is within normal limits. His correlation profile is also within normal limits. The BNP level is at 1040. First is of cardiac enzymes was negative. The patient currently is on a combination of Zaroxolyn 2.5 mg by mouth daily, Aldactone 50 Bmouth twice a day and he is also on metoprolol 100 mg by mouth daily and Entresto 24/26 one tablet daily and he is also on long-term medical condition with Xarelto. In terms of medical problems and comorbidities, the patient is morbidly obese and he has a BMI of 44.5. He has untreated obstructive sleep apnea as the patient was unable to tolerate CPAP therapy. He is known to have chronic atrial fibrillation. He has COPD, moderate degree of pulmonary hypertension, chronic atrial fibrillation, chronic systolic heart failure with an ejection fraction of 40%, diabetes mellitus type 2, diabetic peripheral neuropathy, restless leg syndrome, patient also has history of coronary artery disease. He has been forced [place] on multiple occasions. His undergone coronary artery bypass surgery. 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 Follow-up CAT scan of the abdomen and pelvis was done last month did not show any recurrent tumor within the abdomen. His been disease free since his surgery. He is known to have chronic diverticular disease. He has also chronic pain/back pain. Patient is seen today in consultation in the cardiac floor. He is currently sitting up in a chair at the bedside. He is awake and alert in no acute distress. He is somewhat unclear as to why he was brought here from the extended-care facility. He does state he has ongoing shortness of breath. He is currently maintaining good O2 saturations in the 90s on 4 L per minute per nasal cannula. He is afebrile. Hemodynamically stable. The patient is seen again today 05/16/2018 in follow-up on the selective care unit. He is currently sitting up in a chair at the bedside. He is awake and alert in no acute distress. He continues to diurese well. He remains with fluid volume overload. 1-2+ peripheral edema lower extremities and in the sacral area. He remains on Lasix 80 mg IV push every 12 hours. He is maintaining good O2 saturations in the upper 90s on 4 L/m per nasal cannula. He is afebrile. Hemodynamically stable. On 05/17/2018, I am seeing this patient for a follow-up. His resting comfortably in bed. He is diuresing aggressively. His weight is down and his current BMI is 43.0. He has diuresed in order of 4 L negative fluid balance over the past 24 hours and is currently on IV Lasix. Extremities are less swollen. The patient still has lower extremity edema and pre-sacral edema. No cough. No sputum production. No chest tightness. No wheezing. No other complaints otherwise for now. He is afebrile. He is hemodynamically stable. The patient is seen again today 05/18/2018 in follow-up on the selective care unit. He is currently sitting up in a chair at the bedside. Awake and alert in no acute distress. He is down another 2 kg. Total down 6 kg since admission. His peripheral and sacral edema has improved. Less abdominal fullness. He is maintaining good O2 saturations in the mid to upper 90s on 4 L/ m per nasal cannula. He's been afebrile. Blood cultures reveal no growth. Sodium 133. Bicarb 42. Creatinine 1.38. Remains on a Lasix drip at 10 mg per hour. On 05/19/2018 patient seen in follow-up on selective care unit. He is awake and alert, sitting up in the recliner, in no acute distress, eyes worsening dyspnea or chest pain, currently on 4 L per nasal cannula his pulse ox is 93%, I 'll signs are stable, patient remains on Lasix drip at 10 mg per hour, and his urine output is decreased, and patient is actually in positive fluid balance over the last 24 hours. Blood work has been reviewed, showed WBC of 7.5, hemoglobin of 10.5, sodium of 134 potassium 4.4, CO2 is 41, and patient's renal profile continues to worsen, BUN is 67 creatinine 1.6. Patient still has 2+ bilateral lower extremity edema, his legs have been raymon wrapped. Patient states he is having voice hoarseness, which has been bothering him for last week , the states this has been going on for several months. No thrush noted upon inspection of the oropharynx. On 05/20/2018 patient seen in follow-up on selective care unit, he is awake and alert, in no acute distress, no worsening shortness of breath or chest pain. Patient has lost his IV access, and after multiple tries we were unable to establish access, Lasix drip has been transitioned to IV push Lasix 80 mg twice daily, probably have to be switched to oral Lasix. Lung sounds are diminished, no rhonchi, no wheezes. Is currently on 3 L per nasal cannula his pulse ox of 96%, he is afebrile, hemodynamically stable. Lab work has been reviewed, renal profile continues to worsen, with B1 up to 78, creatinine is 1.78. She is in positive fluid balance, and today's weight has shown an increase of 2 kg. Cultures are negative, no fever no chills, cough, no chest congestion, no wheezing On 05/21/2018 patient seen in follow-up on selective care unit. Patient had a fall last night, no apparent injury. Blood gas was obtained, and showed pO2 of 62, pCO2 of 66, and pH of 7.38, this was done on FiO2 of 36%, patient denied hitting his head, vitals were stable. Patient was started on oral Bumex yesterday, he receive additional dose of oral Lasix 80 mg early this morning, this morning's chest x-ray shows increased interstitium, changes consistent with congestive heart failure, this was compared to previous chest x-ray from and shows improvement in aeration of bilateral bases, and improvement in the appearance of bilateral pleural effusions. Patient is refusing to wear the BiPAP, he states the mask is very uncomfortable, and suffocating him. He does have his CPAP unit from home, and we will try to have him wear his CPAP unit at bedtime and as needed during the day. Remains afebrile, pulse ox on 4 L per nasal cannula is 97%, this morning patient is alert, oriented to place, and person, where he is intermittently confused, and impulsive. Patient is attempting to ambulate without waiting for help, he coming increasingly more agitated when the safety alarm goes off in his bed. he is threatening to leave AGAINST MEDICAL ADVICE. Lung sounds reveal better air entry bilaterally, no crackles, no wheezes or rhonchi. Denies any chest pain, denies any worsening shortness of breath, he still has extensive edema in his bilateral lower extremities. Patient still has no IV access, and per attending physician it was okay to leave the IVs out. This morning's labs have been reviewed and showed sodium of 131, potassium is 5.4, chloride is 83, CO2 is 42, Bun is 86 and creatinine is 1.5. Repeat gas this morning showed pO2 of 73, pCO2 65, and pH of 7.4 on FiO2 of 32%. We will continue current medical treatment, will continue with oral diuretics, Aldactone, Zaroxolyn. Patient can wear his CPAP unit from home. physical therapy coordinator will be placed at the bedside. On 05/22/2018 patient seen in follow-up on selective care unit, yesterday we restarted patient's IV diuretics, patient is diuresing, according to the weight , he is down 7.1 kg in the last 24-48 hours. Mentation seems to have improved, patient is less confused, he knows where he is, he knows the date and the president. he is still unable to wear his CPAP for very long, he was only able to wear it for 20 minutes last night, and for short periods of time during the day in between his trips to the bathroom. Today's blood work has been reviewed , and show sodium of 136, potassium is 4.5, chloride is 84, CO2 41, BUN of 77 and creatinine of 1.38, profile seems to have improved, patient has a environmental health and safety manager and his at the bedside, patient's is quite frustrated, yesterday we talked with her about patient's CODE STATUS, patient's is struggling to make a decision. Patient remains a full code, the states she understands his quality of life is very poor in between frequent hospitalizations. She states patient is difficult to handle for her especially when he gets agitated, during times of hypoxia. He frequently does not wear his CPAP even at home, and she does not know how to turn on the machine or put it on him. Will continue with current medical treatment, the appearance of bilateral lower extremity edema is slightly improved compared to yesterday. He is on combination of IV Lasix, Aldactone and Zaroxolyn. We'll continue with the same Objective - Vital Signs Vital signs: Vital Signs Temp 98.1 F 05/22/18 12:00 Pulse 94 05/22/18 12:16 Resp 18 05/22/18 12:00 BP 124/60 05/22/18 12:00 Pulse Ox 95 05/22/18 12:00 Intake & Output 05/21/18 05/22/18 05/22/18 18:59 06:59 18:59 Intake Total 600 680 Output Total 1100 275 Balance -500 -275 680 Weight 138.2 kg 138.2 kg Intake: Intake, IV Titration 200 Amount Magnesium Sulfate-D5w Pmx 200 1 gm In Dextrose/Water 1 100ml.bag @ 100 mls/hr IVPB Q1H [id number] Rx#: [id number] Oral 600 480 Output: Urine 1100 275 Other: Voiding Method Bedside Commode Bedside Commode Bedside Commode Urinal Urinal Urinal Diaper Diaper Diaper # Voids 1 2 - Exam Gen. appearance obese, comfortable and mild degree of respiratory distress. Sitting up on a chair. Head exam was generally normal. There was no scleral icterus or corneal arcus. Mucous membranes were moist. Neck is short and supple and the patient is a Mallampati class IV. There is a little neck masses. Lungs sounds are diminished in lung bases bilaterally . Breath sounds are diminished bilaterally. Heart sounds are irregular tachycardia consistent with atrial fibrillation. It is an irregular S1 and S2. No significant murmurs appreciated. Sternum stable clean and intact. Abdominal exam revealed normal bowel sounds. The abdomen was soft, non-tender, and without masses, organomegaly, or appreciable enlargement of the abdominal aorta. Extremities reveal 2+ pitting leg, ankle edema. There is no cyanosis or clubbing. No wounds or sores. Examination of the skin revealed no evidence of significant rashes, suspicious appearing nevi or other concerning lesions. Neurologically is awake and alert there is no focal neurological deficits. Patient was noted to be intermittently confused - Labs CBC & Chem 7: 05/19/18 05:31 05/22/18 06:23 Labs: Abnormal Lab Results - Last 24 Hours (Table) 05/21/18 05/21/18 05/22/18 Range/Units 17:05 21:08 06:23 Sodium 136 L (137-145) mmol/L Chloride 84 L (98-107) mmol/L Carbon Dioxide 41 H* (22-30) mmol/L BUN 77 H (9-20) mg/dL Creatinine 1.38 H (0.66-1.25) mg/dL Glucose 108 H (74-99) mg/dL POC Glucose (mg/dL) 131 H 181 H (75-99) mg/dL 05/22/18 05/22/18 Range/Units 06:25 11:24 Sodium (137-145) mmol/L Chloride (98-107) mmol/L Carbon Dioxide (22-30) mmol/L BUN (9-20) mg/dL Creatinine (0.66-1.25) mg/dL Glucose (74-99) mg/dL POC Glucose (mg/dL) 119 H 352 H (75-99) mg/dL Assessment and Plan Plan: 1 acute dyspnea secondary to CHF/diastolic failure with a component of fluid overload and early pulmonary edema. This patient has chronic shortness of breath. There has been acute worsening and decompensation and the vascular status. Chest x-ray is consistent with heart failure, wide mediastinum and interstitial edema consistent with CHF and fluid overload. 2 acute hypoxic respiratory failure on top of chronic hypoxic respiratory failure. 3 CHF with diastolic heart failure and preserved LV function, echocardiogram from 01/17/2018 shows an ejection fraction of 55-60% and concentric left ventricular hypertrophy 4 moderate degree of pulmonary hypertension 5 chronic atrial fibrillation and the patient presented with A. fib/RVR time of admission. Anticoagulated with Xarelto. 6 COPD currently inactive in stable 7 morbid obesity with a BMI of 44.5 8 diabetes mellitus type 2 9 coronary artery disease with previous myocardial infarction and previous carotid bypass surgery 10 peripheral neuropathy 11 carcinoid tumor post small bowel resection, without evidence of any recurrence based on the most recent CAT scan of the abdomen 12 obstructive sleep apnea, nontolerant to CPAP therapy 13 carotid artery disease with less than 25% stenosis at the level of the carotid bifurcation and internal carotid artery and evidence of distal disease bilaterally involving probably more than 50% Plan: Continue with IV diuretics, continue Zaroxolyn and Aldactone, patient is diuresing, his mentation is improving, he is less agitated, however still unable to wear his CPAP for very long. Maintain safety precautions, patient is still a high risk for falls, and for injury related to hypoxic and hypercapnic respiratory failure. Patient's was updated, CODE STATUS was discussed, patient remains a full code at this time, however his overall prognosis is quite guarded. I performed a history & physical examination of the patient and discussed their management with my nurse practitioner, Ketty Loja. I reviewed the nurse practitioner's note and agree with the documented findings and plan of care. Lung sounds are diminished breath sounds at the bases. The findings and the impression was discussed with the patient. I attest to the documentation by the nurse practitioner. Time with Patient: Less than 30
--- NOTE | 2018-05-22 14:28 | P.PN ---
Subjective Progress Note Date: 05/22/18 This is a 68-year-old gentleman seen in consultation yesterday by Dr. VC Hamlin. Presented to the hospital with symptoms of a 2-3 day duration of shortness of breath currently receiving treatment for congestive cardiac failure. Patient has known history of coronary artery disease with prior bypass surgery, moderate to severe COPD, persistent atrial flutter, status post prior ablation. Blood pressure this morning 95/60 with a heart rate in the 90s , 95% on 4 L of oxygen. White blood cell count 9.4, hemoglobin 9.9, platelet count 198. We will discontinue the IV Lasix today and start the patient on a Lasix drip. 05/22/2018 Patient seen and examined today, sitter is at bedside, still confused today. Sodium 136, potassium 4.5, chloride 84, CO2 41, BUN 77, creatinine 1.3 today. This point time patient remains a full code. Objective - Vital Signs Vital signs: Vital Signs Temp 98.1 F 05/22/18 12:00 Pulse 94 05/22/18 12:16 Resp 18 05/22/18 12:00 BP 124/60 05/22/18 12:00 Pulse Ox 95 05/22/18 12:00 Intake & Output 05/21/18 05/22/18 05/22/18 18:59 06:59 18:59 Intake Total 600 680 Output Total 1100 275 Balance -500 -275 680 Weight 138.2 kg 138.2 kg Intake: Intake, IV Titration 200 Amount Magnesium Sulfate-D5w Pmx 200 1 gm In Dextrose/Water 1 100ml.bag @ 100 mls/hr IVPB Q1H [facility] Rx#: [id number] Oral 600 480 Output: Urine 1100 275 Other: Voiding Method Bedside Commode Bedside Commode Bedside Commode Urinal Urinal Urinal Diaper Diaper Diaper # Voids 1 2 - Exam PHYSICAL EXAMINATION: GENERAL: 68-year-old gentleman in no acute distress at the time of my examination HEENT: Head is atraumatic, normocephalic. Pupils equal, round. Sclera anicteric. Conjunctiva are clear. Mucous membranes of the mouth are moist. Neck is supple. There is elevated jugular venous pressure. No carotid bruit is heard. HEART EXAMINATION: Heart S1, S2 normal. No murmur or gallop heard. CHEST EXAMINATION: Lungs reveal bibasilar rales with scattered wheezing throughout. ABDOMEN: Soft, nontender. Bowel sounds are heard. No organomegaly noted. EXTREMITIES: 2+ peripheral pulses with 2-3+ evidence of peripheral edema and no calf tenderness noted. NEUROLOGIC patient is awake, confused. - Labs CBC & Chem 7: 05/19/18 05:31 05/22/18 06:23 Labs: Abnormal Lab Results - Last 24 Hours (Table) 05/21/18 05/21/18 05/22/18 Range/Units 17:05 21:08 06:23 Sodium 136 L (137-145) mmol/L Chloride 84 L (98-107) mmol/L Carbon Dioxide 41 H* (22-30) mmol/L BUN 77 H (9-20) mg/dL Creatinine 1.38 H (0.66-1.25) mg/dL Glucose 108 H (74-99) mg/dL POC Glucose (mg/dL) 131 H 181 H (75-99) mg/dL 05/22/18 05/22/18 Range/Units 06:25 11:24 Sodium (137-145) mmol/L Chloride (98-107) mmol/L Carbon Dioxide (22-30) mmol/L BUN (9-20) mg/dL Creatinine (0.66-1.25) mg/dL Glucose (74-99) mg/dL POC Glucose (mg/dL) 119 H 352 H (75-99) mg/dL Assessment and Plan Plan: Assessment 1 acute dyspnea secondary to CHF/diastolic failure with a component of fluid overload and early pulmonary edema. This patient has chronic shortness of breath. There has been acute worsening and decompensation and the vascular status. Chest x-ray is consistent with heart failure, wide mediastinum and interstitial edema consistent with CHF and fluid overload. 2 acute hypoxic respiratory failure on top of chronic hypoxic respiratory failure. 3 CHF with diastolic heart failure and preserved LV function, echocardiogram from 01/17/2018 shows an ejection fraction of 55-60% and concentric left ventricular hypertrophy 4 moderate degree of pulmonary hypertension 5 chronic atrial fibrillation and the patient presented with A. fib/RVR time of admission. Status post prior flutter ablation 6 COPD currently inactive in stable 7 morbid obesity with a BMI of 44.5 8 diabetes mellitus type 2 9 coronary artery disease with previous myocardial infarction and previous carotid bypass surgery 10 peripheral neuropathy 11 carcinoid tumor post small bowel resection, without evidence of any recurrence based on the most recent CAT scan of the abdomen 12 obstructive sleep apnea, nontolerant to CPAP therapy 13 carotid artery disease with less than 25% stenosis at the level of the carotid bifurcation and internal carotid artery and evidence of distal disease bilaterally involving probably more than 50% Plan From cardiology's perspective, we'll continue current dose of IV Lasix as ordered by pulmonary. We'll follow this patient along with you now on an as- needed basis only, please don't hesitate to call if you have any questions at all. DNP note has been reviewed, I agree with a documented findings and plan of care. Patient was seen and examined.
--- NOTE | 2018-05-22 14:48 | P.PN ---
Subjective Progress Note Date: 05/22/18 This is a 68-year-old male one of my patient wih known history of chronic hypercapnic and hypoxemic respiratory failure, advanced COPD with moderate pulmonary hypertension, known paroxysmal atrial fibrillation/ Flutter on long-term anticoagulation, chronic systolic heart heart failure with a recent EF 40% , restless leg, diabetes mellitus type 2, with diabetic polyneuropathy, patient was recently hospitalized at [facility] from till 05/03/2018 after he was admitted for acute hypercapneic and hypoxemic respiratory failure and acute systolic heart failure and he was sent to [facility] for PT and OT , I was following the patient very closely at [facility] and I was seening him twice per week and he was given multiple injectinons of lasix due to sudden ncrease in his weight and he was plced on CPAP most of the time, yeasterday went to [facility] and he was in respiratory failure with mental status changes, and he was given Lasix 80 mg IM , along with his scheduled dose of Bumex and spironolactone , along with entresto without much help, EMS was called and he was sent to the ER at [facility] were he was found to have Pulmonary edema, he was started on Lasix 40 mg IV Q 8 H along with Entresto and Toprol, spironolactone, and patient was admitted to the hospital, cardiology consultation was obtained as welll as Pulmonary consult. Patient was seen by earlier in April and had a DCG and he was supposed to have a follow up with him regarding the treatment of A.Flutter but he never connected with him since he ended in the hospital in April 25 . we really need to find what was the result of the Holter that he had and try to intervene in A.Flutter management otherwise he will continue to have recurrent hospital admission due to decompensation of his systolic heart failure. 05/16: Patient states his breathing is a little bit better from yesterday. He continues to have lower extremity edema. He has been seen by cardiology and IV Lasix was discontinued, mentalis own was added at 2.5 mg daily and spironolactone was increased to 50 mg twice daily. We will resume patient back on Lasix 80 mg IV twice daily. We will resume IV Lasix at 40 mg. His weight is down 2 kg from admission. Patient's is to bring in CPAP. 05/17: Patient was started on Lasix drip yesterday by cardiology. His weight is down 5 kg since admission. Patient states he is tired and was up urinating every hour and a half during the night. He is noted to have his legs in a dependent position, Oscar wraps in place. Patient has less pedal edema and less edema in his abdomen. Patient did not wear his CPAP last night stating that it was because he was up so frequently. His CPAP is at bedside. Noted that CO2 is up to 44. Hemoglobin 10.7, creatinine 1.28. Capillary blood glucose running between 102 and 155. Pulse ox is 97% on 3 L. Patient's been afebrile. 05/20: Yesterday, patient was transitioned off Lasix drip and is on IV Lasix at 80 mg IV every 12 hours but he does not have IV access. Cardiology state they will address. Patient states he has not been urinating much since he's been off the drip. He continues to have lower extremity edema. Anticipate he will be ready for discharge the next 24 hours. 05/21: Last evening, patient became very confused and he was found on the floor by the main door. Patient denied any injury. ABGs were done the pH is 7.38, pCO2 66, PaO2 62, bicarb 39, total CO2 41 O2 saturation 89. Ammonia level is less than 9 and proBNP was 923. His Entresto and Aldactone was held last evening again this morning due to hypotension. He had a chest x-ray that shows heart failure. His weight is up from previous. He is currently on oral Bumex. Patient is diuresing well today. The patient is on CPAP. He apparently was lucid this morning and then around 9:00 had change in mental status with confusion. He is currently on CPAP. Heart rate has been running anywhere from 90-138. 05/22: Pulse ox is 95% on 4 L nasal cannula he was on BiPAP for several hours during the night. This morning sodium 136, chloride 84, CO2 41, BUN 77 creatinine 1.38. Potassium improved to 4.5. Blood sugar running between 119 - 181. Heart rate is running between 94 and 122. Blood pressure remains on the low side. He remains on Lasix 40 mg IV every 8 hours. Entresto and Aldactone were held last night for hypotension. Blood pressure is improved this morning with minimal drainage and patient received all of his medications. Patient has been diuresing well. His weight is down. He has found this morning, sleeping in a chair. He apparently was confused yesterday but improved mentation this morning Review Of Systems: Constitutional: No fever, no chills, no night sweats. No weight change. + weakness, +fatigue. +daytime sleepiness. EENT: No headache. No blurred vision or double vision, no loss of vision. No loss of Hearing, no ringing in the ears, no dizziness. No nasal drainage or congestion. No epistaxis. No sore throat. Lungs: +shortness of breath, +cough, no sputum production. No wheezing. Cardiovascular: No chest pain, + lower extremity edema. + palpitations. + paroxysmal nocturnal dyspnea. + orthopnea. No lightheadedness or dizziness. No syncopal episodes. Abdominal: No abdominal pain. + bloating. No nausea, vomiting. No diarrhea. No constipation. No bloody or tarry stools.. No loss of appetite. Genitourinary: No dysuria, increased frequency, urgency. No urinary retention. Musculoskeletal: No myalgias. +muscle weakness, + gait dysfunction, no frequent falls. + back pain. No neck pain. Integumentary: No wounds, no lesions. No rash or pruritus. No unusual bruising. No change in hair or nails. Neurologic: No aphasia. No facial droop. + change in mentation. No head injury. No headache. No paralysis. No paresthesia. Psychiatric: No depression. + anxiety. Endocrine: No abnormal blood sugars. No weight change. No excessive sweating or thirst. Objective - Vital Signs Vital signs: Vital Signs Temp 98.0 F 05/22/18 07:37 Pulse 104 H 05/22/18 09:25 Resp 18 05/22/18 07:37 BP 110/54 05/22/18 09:27 Pulse Ox 95 05/22/18 07:37 Intake & Output 05/21/18 05/22/18 05/22/18 18:59 06:59 18:59 Intake Total 600 240 Output Total 1100 275 Balance -500 -275 240 Weight 138.2 kg Intake: Oral 600 240 Output: Urine 1100 275 Other: Voiding Method Bedside Commode Bedside Commode Bedside Commode Urinal Urinal Urinal Diaper Diaper Diaper # Voids 1 - Exam General appearance: no distress, obese, patient is in recliner and appears to be comfortable - EENT Eyes: anicteric sclerae, EOMI, PERRLA, no ptosis, no scleral icterus, normal appearance ENT: hard of hearing, NA/AT, normal oropharynx, no thrush Ears: bilateral: normal - Neck Neck: no lymphadenopathy, normal ROM, no rigidity, no stridor, no thyromegaly Carotids: bilateral: upstroke normal Thyroid: bilateral: normal size - Respiratory Respiratory: bilateral: diminished, negative: dullness, rales, rhonchi, wheezing , prolonged expiration, patient on BiPAP - Cardiovascular Rhythm: irregularly irregular Heart sounds: normal: S1, S2 Abnormal Heart Sounds: systolic murmur - Gastrointestinal General gastrointestinal: distended, hyperactive bowel sounds, soft, no tenderness, no umbilical hernia, no ventral hernia - Integumentary Integumentary: normal, normal turgor - Neurologic Neurologic: CNII-XII intact - Musculoskeletal Musculoskeletal: generalized weakness, strength equal bilaterally, 2+ pedal edema - Psychiatric Psychiatric: A&O x's 2, appropriate affect, intact judgment & insight - Labs CBC & Chem 7: 05/19/18 05:31 05/22/18 06:23 Labs: Abnormal Lab Results - Last 24 Hours (Table) 05/21/18 05/21/18 05/21/18 Range/Units 10:38 12:04 17:05 ABG pCO2 66 H (35-45) mmHg ABG pO2 73 L (83-108) mmHg ABG HCO3 41 H* (21-25) mmol/L ABG Total CO2 43 H (19-24) mmol/L ABG O2 Saturation 93.0 L (94-97) % Sodium (137-145) mmol/L Chloride (98-107) mmol/L Carbon Dioxide (22-30) mmol/L BUN (9-20) mg/dL Creatinine (0.66-1.25) mg/dL Glucose (74-99) mg/dL POC Glucose (mg/dL) 183 H 131 H (75-99) mg/dL 05/21/18 05/22/18 05/22/18 Range/Units 21:08 06:23 06:25 ABG pCO2 (35-45) mmHg ABG pO2 (83-108) mmHg ABG HCO3 (21-25) mmol/L ABG Total CO2 (19-24) mmol/L ABG O2 Saturation (94-97) % Sodium 136 L (137-145) mmol/L Chloride 84 L (98-107) mmol/L Carbon Dioxide 41 H* (22-30) mmol/L BUN 77 H (9-20) mg/dL Creatinine 1.38 H (0.66-1.25) mg/dL Glucose 108 H (74-99) mg/dL POC Glucose (mg/dL) 181 H 119 H (75-99) mg/dL Assessment and Plan Plan: 1. Acute on chronic diastolic heart failure with acute on chronic hypercapnic and hypoxic respiratory failure secondary to pulmonary hypertension and sleep apnea. Continue IV Lasix 40 mg every 8 hours, Zaroxolyn 5 mg daily, Aldactone 50 mg twice daily and Entresto 25/26 twice daily. Cardiology consult appreciated. Midodrine started to maintain blood pressure for diuresing. 2. Acute on chronic hypercapneic and hypoxemic respiratory failure. we will continue with CPAP, O2 and duoneb 3m NEB QID along with pulmicort 1 mg NEB bid. Pulmonary consult. Patient is to use CPAP when sleeping during the day and at night. 3. Advanced COPD. we will continue with Neb Rx as above. 4. Paroxysmal atrial fibrillation/Flutter. we will continue with Metoprolol 100 mg orally daily and Xarelto 20 mg orally daily, cardiology evaluation and try to get the result of the DCG that was done as outpatient with . 5. Hypertension and hypertensive cardiovascular disease, with hypotension. we will continue with Metoprolol 100 mg orally daily and Entresto 24/26 mg orally daily. 6. Diabetes Mellitus type 2 uncontrolled. Continue Levemir to 32 units sc qhs and will continue with Novolog 12-15 units AC meals tid, along with SSI, we will continue with CCA 1800 diet and BGM AC meals and at bedtime. 7. Diabetic polyneuropathy. we will contiue with Lyrica 150 mg orally qhs. 8. Restless leg syndrome. we will continue with Requip 1.5 mg orally at bedtime. 9. Hyperlipidemia. we will continue with Lipitor 20 mg orally daily. 10. Obestiy with PEDRO and OHS. we will continue with CPAP, may need his mask adjusted we will call [facility] to reevaluate. 11. Vitamin D deficiency. we will continue with vit D q week. 12. GERD . will continue with Protonix 40 mg orally daily. 13.BPH. we will continue with Flomax 0.4 mg orally daily. 14. DVT prophylaxis. we will continue with Xarelto 20 mg orally daily. 15. GI prophylaxis. we will continue with PPI. 16. Full code. 17. Metabolic encephalopathy secondary to hypercapnia. Discharge plan: Return to [facility] on Sunday Impression and plan of care have been directed as dictated by the signing physician. Larissa Warner nurse practitioner acting as scribe for signing physician.
[2018-05-22 16:38] LABS: Glucose,Whole Blood 84 mg/dL (75-99)
[2018-05-22] MEDS: RIVAROXABAN 15 MG TAB PO SCH (17:34)
[2018-05-22 20:56] LABS: Glucose,Whole Blood 272 mg/dL (75-99)
[2018-05-22] MEDS: MELATONIN 3 MG TABLET PO SCH (21:44)
[2018-05-22] MEDS: INSULIN DETEMIR 100 UNIT/ML 10 ML VIAL SQ SCH (21:44)
[2018-05-22] MEDS: ATORVASTATIN 20 MG TAB PO SCH (21:44)
[2018-05-23 05:28] LABS: Glucose,Whole Blood 126 mg/dL (75-99)
[2018-05-23] MEDS: INSULIN ASPART 100 UNIT/ML 1 ML 10 ML VIAL SQ SCH ×7 (05:41→20:29)
[2018-05-23] MEDS: MIDODRINE 5 MG TAB PO SCH ×3 (06:28→16:28)
[2018-05-23] MEDS: PANTOPRAZOLE 40 MG TABLET PO SCH (06:28)
[2018-05-23 07:16] LABS: Anisocytosis Slight; HCT 29.5 % (39.0-53.0); HGB 9.6 gm/dL (13.0-17.5); Hypochromasia Moderate; MCH 29.5 pg (25.0-35.0); MCHC 32.7 g/dL (31.0-37.0); MCV 90.1 fL (80.0-100.0); Platelet Count 262 k/uL (150-450); Poikilocytosis Slight; RBC 3.27 m/uL (4.30-5.90); RDW 16.9 % (11.5-15.5); WBC 8.3 k/uL (3.8-10.6)
[2018-05-23 07:34] LABS: Calcium 8.9 mg/dL (8.4-10.2); Potassium 4.7 mmol/L (3.5-5.1)
[2018-05-23] MEDS: BUDESONIDE 1 MG/2 ML NEBU INHALATION SCH ×2 (08:19→21:02)
[2018-05-23] MEDS: IPRATROPIUM-ALBUTEROL 3 ML NEB INHALATION SCH ×4 (08:19→21:02)
[2018-05-23] MEDS: FUROSEMIDE 10 MG/ML 4 ML VIAL IV SCH ×3 (09:19→23:37)
[2018-05-23] MEDS: guaiFENesin 600 MG TABLET.ER PO SCH ×2 (09:20→20:29)
[2018-05-23] MEDS: ASPIRIN 81 MG PO SCH (09:20)
[2018-05-23] MEDS: TAMSULOSIN 0.4 MG CAP.ER.24H PO SCH (09:20)
[2018-05-23] MEDS: PREGABALIN 75 MG CAP PO SCH (09:21)
[2018-05-23] MEDS: METOPROLOL SUCCINATE (ER) 50 MG TAB.ER.24H PO SCH (09:21)
[2018-05-23] MEDS: SPIRONOLACTONE 25 MG TAB PO SCH ×2 (09:22→20:30)
[2018-05-23] MEDS: SACUBITRIL/VALSARTAN 24 MG-26 MG TABLET PO SCH ×2 (09:22→20:30)
[2018-05-23] MEDS: AMMONIUM LACTATE 12% LOTION 225 GM BTL TOPICAL SCH ×2 (09:29→23:04)
--- NOTE | 2018-05-23 11:07 | XR ---
EXAMINATION TYPE: XR chest 2V DATE OF EXAM: 05/23/2018 COMPARISON: 05/21/2018 HISTORY: Shortness of breath TECHNIQUE: Frontal and lateral views of the chest are obtained. FINDINGS: Scattered senescent parenchymal changes noted. Hyperinflation compatible with COPD. Is continued cardiomegaly with interstitial edema and pulmonary venous congestion. Small effusions po steriorly are difficult to exclude. Mediastinal structures are stable and grossly unremarkable. No evidence for hilar prominence. Degenerative changes dorsal spine. IMPRESSION: 1. Essentially stable features of congestive failure.
[2018-05-23 11:08] LABS: Glucose,Whole Blood 226 mg/dL (75-99)
--- NOTE | 2018-05-23 12:28 | P.PN ---
Subjective Progress Note Date: 05/23/18 This is a 68-year-old male one of my patient wih known history of chronic hypercapnic and hypoxemic respiratory failure, advanced COPD with moderate pulmonary hypertension, known paroxysmal atrial fibrillation/ Flutter on long-term anticoagulation, chronic systolic heart heart failure with a recent EF 40% , restless leg, diabetes mellitus type 2, with diabetic polyneuropathy, patient was recently hospitalized at [facility] from till 05/03/2018 after he was admitted for acute hypercapneic and hypoxemic respiratory failure and acute systolic heart failure and he was sent to [facility] for PT and OT , I was following the patient very closely at [facility] and I was seening him twice per week and he was given multiple injectinons of lasix due to sudden ncrease in his weight and he was plced on CPAP most of the time, yeasterday went to [facility] and he was in respiratory failure with mental status changes, and he was given Lasix 80 mg IM , along with his scheduled dose of Bumex and spironolactone , along with entresto without much help, EMS was called and he was sent to the ER at [facility] were he was found to have Pulmonary edema, he was started on Lasix 40 mg IV Q 8 H along with Entresto and Toprol, spironolactone, and patient was admitted to the hospital, cardiology consultation was obtained as welll as Pulmonary consult. Patient was seen by earlier in April and had a DCG and he was supposed to have a follow up with him regarding the treatment of A.Flutter but he never connected with him since he ended in the hospital in April 25 . we really need to find what was the result of the Holter that he had and try to intervene in A.Flutter management otherwise he will continue to have recurrent hospital admission due to decompensation of his systolic heart failure. 05/16: Patient states his breathing is a little bit better from yesterday. He continues to have lower extremity edema. He has been seen by cardiology and IV Lasix was discontinued, mentalis own was added at 2.5 mg daily and spironolactone was increased to 50 mg twice daily. We will resume patient back on Lasix 80 mg IV twice daily. We will resume IV Lasix at 40 mg. His weight is down 2 kg from admission. Patient's is to bring in CPAP. 05/17: Patient was started on Lasix drip yesterday by cardiology. His weight is down 5 kg since admission. Patient states he is tired and was up urinating every hour and a half during the night. He is noted to have his legs in a dependent position, Oscar wraps in place. Patient has less pedal edema and less edema in his abdomen. Patient did not wear his CPAP last night stating that it was because he was up so frequently. His CPAP is at bedside. Noted that CO2 is up to 44. Hemoglobin 10.7, creatinine 1.28. Capillary blood glucose running between 102 and 155. Pulse ox is 97% on 3 L. Patient's been afebrile. 05/20: Yesterday, patient was transitioned off Lasix drip and is on IV Lasix at 80 mg IV every 12 hours but he does not have IV access. Cardiology state they will address. Patient states he has not been urinating much since he's been off the drip. He continues to have lower extremity edema. Anticipate he will be ready for discharge the next 24 hours. 05/21: Last evening, patient became very confused and he was found on the floor by the main door. Patient denied any injury. ABGs were done the pH is 7.38, pCO2 66, PaO2 62, bicarb 39, total CO2 41 O2 saturation 89. Ammonia level is less than 9 and proBNP was 923. His Entresto and Aldactone was held last evening again this morning due to hypotension. He had a chest x-ray that shows heart failure. His weight is up from previous. He is currently on oral Bumex. Patient is diuresing well today. The patient is on CPAP. He apparently was lucid this morning and then around 9:00 had change in mental status with confusion. He is currently on CPAP. Heart rate has been running anywhere from 90-138. 05/22: Pulse ox is 95% on 4 L nasal cannula he was on BiPAP for several hours during the night. This morning sodium 136, chloride 84, CO2 41, BUN 77 creatinine 1.38. Potassium improved to 4.5. Blood sugar running between 119 - 181. Heart rate is running between 94 and 122. Blood pressure remains on the low side. He remains on Lasix 40 mg IV every 8 hours. Entresto and Aldactone were held last night for hypotension. Blood pressure is improved this morning with minimal drainage and patient received all of his medications. Patient has been diuresing well. His weight is down. He has found this morning, sleeping in a chair. He apparently was confused yesterday but improved mentation this morning 05/23: Patient is resting comfortably in a chair. Patient mental has improved. He is arousable and able to answer questions this morning. His pulse ox was 95% on 4 L nasal cannula. He is using a BiPAP during the night. Hemoglobin was 9.6, sodium was 135, chloride 83, CO2 was 48, BUN 77, creatinine 1.55, potassium 4.7. Blood sugars continue to be stable. Blood pressure continues to be on the low side. Patient has been diuresing well. His weight continues to be down. Patient as well as any complaints today. He is anxious to go home. Review Of Systems: Constitutional: No fever, no chills, no night sweats. No weight change. + weakness, +fatigue. +daytime sleepiness. EENT: No headache. No blurred vision or double vision, no loss of vision. No loss of Hearing, no ringing in the ears, no dizziness. No nasal drainage or congestion. No epistaxis. No sore throat. Lungs: +shortness of breath, +cough, no sputum production. No wheezing. Cardiovascular: No chest pain, + lower extremity edema. + palpitations. + paroxysmal nocturnal dyspnea. + orthopnea. No lightheadedness or dizziness. No syncopal episodes. Abdominal: No abdominal pain. + bloating. No nausea, vomiting. No diarrhea. No constipation. No bloody or tarry stools.. No loss of appetite. Genitourinary: No dysuria, increased frequency, urgency. No urinary retention. Musculoskeletal: No myalgias. +muscle weakness, + gait dysfunction, no frequent falls. + back pain. No neck pain. Integumentary: No wounds, no lesions. No rash or pruritus. No unusual bruising. No change in hair or nails. Neurologic: No aphasia. No facial droop. + change in mentation. No head injury. No headache. No paralysis. No paresthesia. Psychiatric: No depression. + anxiety. Endocrine: No abnormal blood sugars. No weight change. No excessive sweating or thirst. Objective - Vital Signs Vital signs: Vital Signs Temp 98.1 F 05/23/18 08:00 Pulse 82 05/23/18 12:08 Resp 18 05/23/18 08:00 BP 93/50 05/23/18 08:00 Pulse Ox 95 05/23/18 08:22 Intake & Output 05/22/18 05/23/18 05/23/18 18:59 06:59 18:59 Intake Total 920 400 924 Output Total 1201 Balance 920 400 -277 Weight 138.2 kg 137.9 kg Intake: Intake, IV Titration 200 Amount Magnesium Sulfate-D5w Pmx 200 1 gm In Dextrose/Water 1 100ml.bag @ 100 mls/hr IVPB Q1H [id number] Rx#: [id number] Oral 720 400 924 Output: Urine 1200 Stool 1 Other: Voiding Method Bedside Commode Toilet Toilet Urinal Diaper Diaper Diaper # Voids 2 1 - Constitutional General appearance: Present: cooperative, no acute distress (Sitting up in recliner and appears to be comfortable), obese - EENT Eyes: Present: anicteric sclerae, EOMI, PERRLA, normal appearance ENT: Present: hard of hearing, NA/AT, normal oropharynx. Absent: thrush - Neck Neck: Present: normal ROM. Absent: lymphadenopathy, rigidity - Respiratory Respiratory: bilateral: diminished, negative: dullness, rales, rhonchi, wheezing - Cardiovascular Rhythm: irregularly irregular Heart sounds: normal: S1, S2 Abnormal Heart Sounds: Present: systolic murmur - Gastrointestinal General gastrointestinal: Present: distended, normal bowel sounds, soft. Absent : organomegaly, tenderness - Integumentary Integumentary: Present: normal turgor. Absent: rash - Neurologic Neurologic: Present: CNII-XII intact - Musculoskeletal Musculoskeletal Comment(s): 1+ pedal edema Musculoskeletal: Present: gait normal, generalized weakness, strength equal bilaterally - Psychiatric Psychiatric: Present: A&O x's 3, appropriate affect, intact judgment & insight - Labs CBC & Chem 7: 05/23/18 06:17 05/23/18 06:17 Labs: Abnormal Lab Results - Last 24 Hours (Table) 05/22/18 05/23/18 05/23/18 Range/Units 20:54 05:27 06:17 RBC 3.27 L (4.30-5.90) m/uL Hgb 9.6 L (13.0-17.5) gm/dL Hct 29.5 L (39.0-53.0) % RDW 16.9 H (11.5-15.5) % Sodium (137-145) mmol/L Chloride (98-107) mmol/L Carbon Dioxide (22-30) mmol/L BUN (9-20) mg/dL Creatinine (0.66-1.25) mg/dL Glucose (74-99) mg/dL POC Glucose (mg/dL) 272 H 126 H (75-99) mg/dL 05/23/18 05/23/18 Range/Units 06:17 11:06 RBC (4.30-5.90) m/uL Hgb (13.0-17.5) gm/dL Hct (39.0-53.0) % RDW (11.5-15.5) % Sodium 135 L (137-145) mmol/L Chloride 83 L (98-107) mmol/L Carbon Dioxide 48 H* (22-30) mmol/L BUN 77 H (9-20) mg/dL Creatinine 1.55 H (0.66-1.25) mg/dL Glucose 109 H (74-99) mg/dL POC Glucose (mg/dL) 226 H (75-99) mg/dL Assessment and Plan Plan: 1. Acute on chronic diastolic heart failure with acute on chronic hypercapnic and hypoxic respiratory failure secondary to pulmonary hypertension and sleep apnea. Continue IV Lasix 40 mg every 8 hours, Zaroxolyn 5 mg daily, Aldactone 50 mg twice daily and change Entresto 0.5 tablets twice a day due to hypotension. Cardiology consult appreciated. Midodrine started to maintain blood pressure for diuresing. Obtain a chest x-ray today and a CMP. 2. Acute on chronic hypercapneic and hypoxemic respiratory failure. we will continue with CPAP, O2 and duoneb 3m NEB QID along with pulmicort 1 mg NEB bid. Pulmonary consult. Patient is to use CPAP when sleeping during the day and at night. 3. Advanced COPD. we will continue with Neb Rx as above. 4. Paroxysmal atrial fibrillation/Flutter. we will continue with Metoprolol 100 mg orally daily and Xarelto 20 mg orally daily, cardiology evaluation and try to get the result of the DCG that was done as outpatient with . 5. Hypertension and hypertensive cardiovascular disease, with hypotension. we will continue with Metoprolol 100 mg orally daily and Entresto half a tablet twice a day. 6. Diabetes Mellitus type 2 uncontrolled. Continue Levemir to 32 units sc qhs and will continue with Novolog 12-15 units AC meals tid, along with SSI, we will continue with CCA 1800 diet and BGM AC meals and at bedtime. 7. Diabetic polyneuropathy. we will contiue with Lyrica 150 mg orally qhs. 8. Restless leg syndrome. we will continue with Requip 1.5 mg orally at bedtime. 9. Hyperlipidemia. we will continue with Lipitor 20 mg orally daily. 10. Obestiy with PEDRO and OHS. we will continue with CPAP, may need his mask adjusted we will call [facility] to reevaluate. 11. Vitamin D deficiency. we will continue with vit D q week. 12. GERD . will continue with Protonix 40 mg orally daily. 13.BPH. we will continue with Flomax 0.4 mg orally daily. 14. DVT prophylaxis. we will continue with Xarelto 20 mg orally daily. 15. GI prophylaxis. we will continue with PPI. 16. Full code. 17. Metabolic encephalopathy secondary to hypercapnia. Discharge plan: Return to [facility] on Sunday Impression and plan of care have been directed as dictated by the signing physician. Mackenzie Jay nurse practitioner acting as scribe for signing physician.
--- NOTE | 2018-05-23 13:15 | P.PN ---
Subjective Progress Note Date: 05/23/18 Principal diagnosis: Acute exacerbation of diastolic congestive heart failure 68-year-old male patient is well-known to me who comes in again to the hospital because of worsening shortness of breath. The patient came into the ED for increased dyspnea over the past few days. He has also noted some increased swelling lower oximetry is bilaterally. According to him has gained around additional 20 pounds above and beyond his baseline. I went and looked at the records and the patient has gained significant amount of weight since summer. He denies having any significant cough or sputum production. No chest pain. He is known to have multiple medical problems and comorbidities as mentioned earlier in the medical records. Upon arrival to the hospital, the patient was also in atrial fibrillation she has been in a chronic basis and his heart rate was 101.. His white cell count is not elevated. His renal function is within normal limits. His correlation profile is also within normal limits. The BNP level is at 1040. First is of cardiac enzymes was negative. The patient currently is on a combination of Zaroxolyn 2.5 mg by mouth daily, Aldactone 50 Bmouth twice a day and he is also on metoprolol 100 mg by mouth daily and Entresto 24/26 one tablet daily and he is also on long-term medical condition with Xarelto. In terms of medical problems and comorbidities, the patient is morbidly obese and he has a BMI of 44.5. He has untreated obstructive sleep apnea as the patient was unable to tolerate CPAP therapy. He is known to have chronic atrial fibrillation. He has COPD, moderate degree of pulmonary hypertension, chronic atrial fibrillation, chronic systolic heart failure with an ejection fraction of 40%, diabetes mellitus type 2, diabetic peripheral neuropathy, restless leg syndrome, patient also has history of coronary artery disease. He has been forced NV on multiple occasions. His undergone coronary artery bypass surgery. 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 Follow-up CAT scan of the abdomen and pelvis was done last month did not show any recurrent tumor within the abdomen. His been disease free since his surgery. He is known to have chronic diverticular disease. He has also chronic pain/back pain. Patient is seen today in consultation in the cardiac floor. He is currently sitting up in a chair at the bedside. He is awake and alert in no acute distress. He is somewhat unclear as to why he was brought here from the extended-care facility. He does state he has ongoing shortness of breath. He is currently maintaining good O2 saturations in the 90s on 4 L per minute per nasal cannula. He is afebrile. Hemodynamically stable. The patient is seen again today 05/16/2018 in follow-up on the selective care unit. He is currently sitting up in a chair at the bedside. He is awake and alert in no acute distress. He continues to diurese well. He remains with fluid volume overload. 1-2+ peripheral edema lower extremities and in the sacral area. He remains on Lasix 80 mg IV push every 12 hours. He is maintaining good O2 saturations in the upper 90s on 4 L/m per nasal cannula. He is afebrile. Hemodynamically stable. On 05/17/2018, I am seeing this patient for a follow-up. His resting comfortably in bed. He is diuresing aggressively. His weight is down and his current BMI is 43.0. He has diuresed in order of 4 L negative fluid balance over the past 24 hours and is currently on IV Lasix. Extremities are less swollen. The patient still has lower extremity edema and pre-sacral edema. No cough. No sputum production. No chest tightness. No wheezing. No other complaints otherwise for now. He is afebrile. He is hemodynamically stable. The patient is seen again today 05/18/2018 in follow-up on the selective care unit. He is currently sitting up in a chair at the bedside. Awake and alert in no acute distress. He is down another 2 kg. Total down 6 kg since admission. His peripheral and sacral edema has improved. Less abdominal fullness. He is maintaining good O2 saturations in the mid to upper 90s on 4 L/ m per nasal cannula. He's been afebrile. Blood cultures reveal no growth. Sodium 133. Bicarb 42. Creatinine 1.38. Remains on a Lasix drip at 10 mg per hour. On 05/19/2018 patient seen in follow-up on selective care unit. He is awake and alert, sitting up in the recliner, in no acute distress, eyes worsening dyspnea or chest pain, currently on 4 L per nasal cannula his pulse ox is 93%, I 'll signs are stable, patient remains on Lasix drip at 10 mg per hour, and his urine output is decreased, and patient is actually in positive fluid balance over the last 24 hours. Blood work has been reviewed, showed WBC of 7.5, hemoglobin of 10.5, sodium of 134 potassium 4.4, CO2 is 41, and patient's renal profile continues to worsen, BUN is 67 creatinine 1.6. Patient still has 2+ bilateral lower extremity edema, his legs have been raymon wrapped. Patient states he is having voice hoarseness, which has been bothering him for last week , the states this has been going on for several months. No thrush noted upon inspection of the oropharynx. On 05/20/2018 patient seen in follow-up on selective care unit, he is awake and alert, in no acute distress, no worsening shortness of breath or chest pain. Patient has lost his IV access, and after multiple tries we were unable to establish access, Lasix drip has been transitioned to IV push Lasix 80 mg twice daily, probably have to be switched to oral Lasix. Lung sounds are diminished, no rhonchi, no wheezes. Is currently on 3 L per nasal cannula his pulse ox of 96%, he is afebrile, hemodynamically stable. Lab work has been reviewed, renal profile continues to worsen, with B1 up to 78, creatinine is 1.78. She is in positive fluid balance, and today's weight has shown an increase of 2 kg. Cultures are negative, no fever no chills, cough, no chest congestion, no wheezing On 05/21/2018 patient seen in follow-up on selective care unit. Patient had a fall last night, no apparent injury. Blood gas was obtained, and showed pO2 of 62, pCO2 of 66, and pH of 7.38, this was done on FiO2 of 36%, patient denied hitting his head, vitals were stable. Patient was started on oral Bumex yesterday, he receive additional dose of oral Lasix 80 mg early this morning, this morning's chest x-ray shows increased interstitium, changes consistent with congestive heart failure, this was compared to previous chest x-ray from and shows improvement in aeration of bilateral bases, and improvement in the appearance of bilateral pleural effusions. Patient is refusing to wear the BiPAP, he states the mask is very uncomfortable, and suffocating him. He does have his CPAP unit from home, and we will try to have him wear his CPAP unit at bedtime and as needed during the day. Remains afebrile, pulse ox on 4 L per nasal cannula is 97%, this morning patient is alert, oriented to place, and person, where he is intermittently confused, and impulsive. Patient is attempting to ambulate without waiting for help, he coming increasingly more agitated when the safety alarm goes off in his bed. he is threatening to leave AGAINST MEDICAL ADVICE. Lung sounds reveal better air entry bilaterally, no crackles, no wheezes or rhonchi. Denies any chest pain, denies any worsening shortness of breath, he still has extensive edema in his bilateral lower extremities. Patient still has no IV access, and per attending physician it was okay to leave the IVs out. This morning's labs have been reviewed and showed sodium of 131, potassium is 5.4, chloride is 83, CO2 is 42, Bun is 86 and creatinine is 1.5. Repeat gas this morning showed pO2 of 73, pCO2 65, and pH of 7.4 on FiO2 of 32%. We will continue current medical treatment, will continue with oral diuretics, Aldactone, Zaroxolyn. Patient can wear his CPAP unit from home. fusing machine feeder will be placed at the bedside. On 05/22/2018 patient seen in follow-up on selective care unit, yesterday we restarted patient's IV diuretics, patient is diuresing, according to the weight , he is down 7.1 kg in the last 24-48 hours. Mentation seems to have improved, patient is less confused, he knows where he is, he knows the date and the president. he is still unable to wear his CPAP for very long, he was only able to wear it for 20 minutes last night, and for short periods of time during the day in between his trips to the bathroom. Today's blood work has been reviewed , and show sodium of 136, potassium is 4.5, chloride is 84, CO2 41, BUN of 77 and creatinine of 1.38, profile seems to have improved, patient has a director of patient safety and his at the bedside, patient's is quite frustrated, yesterday we talked with her about patient's CODE STATUS, patient's is struggling to make a decision. Patient remains a full code, the states she understands his quality of life is very poor in between frequent hospitalizations. She states patient is difficult to handle for her especially when he gets agitated, during times of hypoxia. He frequently does not wear his CPAP even at home, and she does not know how to turn on the machine or put it on him. Will continue with current medical treatment, the appearance of bilateral lower extremity edema is slightly improved compared to yesterday. He is on combination of IV Lasix, Aldactone and Zaroxolyn. We'll continue with the same The patient is seen again today 05/23/2018 in follow-up on the selective care unit. He is currently sitting up in a chair at the bedside. He is awake and alert in no acute distress. He's been slow to progress. Currently maintaining O2 saturations in the mid 90s on 3 L/m per nasal cannula. Afebrile. Blood cultures reveal no growth. White count 8.3. Hemoglobin 9.6. Bicarb 48. Creatinine 1.55. He is currently on Lasix 40 mg IV every 8 hours. Anticoagulated with Xarelto. Objective - Vital Signs Vital signs: Vital Signs Temp 98.7 F 05/23/18 12:15 Pulse 103 H 05/23/18 12:15 Resp 18 05/23/18 12:15 BP 82/47 05/23/18 12:15 Pulse Ox 95 05/23/18 12:15 Intake & Output 05/22/18 05/23/18 05/23/18 18:59 06:59 18:59 Intake Total 920 400 924 Output Total 1201 Balance 920 400 -277 Weight 138.2 kg 137.9 kg Intake: Intake, IV Titration 200 Amount Magnesium Sulfate-D5w Pmx 200 1 gm In Dextrose/Water 1 100ml.bag @ 100 mls/hr IVPB Q1H [id number] Rx#: [id number] Oral 720 400 924 Output: Urine 1200 Stool 1 Other: Voiding Method Bedside Commode Toilet Toilet Urinal Diaper Diaper Diaper # Voids 2 1 - Exam Gen. appearance obese, comfortable and mild degree of respiratory distress. Sitting up on a chair. Head exam was generally normal. There was no scleral icterus or corneal arcus. Mucous membranes were moist. Neck is short and supple and the patient is a Mallampati class IV. There is a little neck masses. Lungs sounds are diminished in lung bases bilaterally along with some limited bibasilar crackles. Breath sounds are diminished bilaterally. Heart sounds are irregular tachycardia consistent with atrial fibrillation. It is an irregular S1 and S2. No significant murmurs appreciated. Sternum stable clean and intact. Abdominal exam revealed normal bowel sounds. The abdomen was soft, non-tender, and without masses, organomegaly, or appreciable enlargement of the abdominal aorta. Extremities reveal 2+ ankle edema. There is no cyanosis or clubbing. No wounds or sores. Examination of the skin revealed no evidence of significant rashes, suspicious appearing nevi or other concerning lesions. Neurologically is awake and alert there is no focal neurological deficits. - Labs CBC & Chem 7: 05/23/18 06:17 05/23/18 06:17 Labs: Abnormal Lab Results - Last 24 Hours (Table) 05/22/18 05/23/18 05/23/18 Range/Units 20:54 05:27 06:17 RBC 3.27 L (4.30-5.90) m/uL Hgb 9.6 L (13.0-17.5) gm/dL Hct 29.5 L (39.0-53.0) % RDW 16.9 H (11.5-15.5) % Sodium (137-145) mmol/L Chloride (98-107) mmol/L Carbon Dioxide (22-30) mmol/L BUN (9-20) mg/dL Creatinine (0.66-1.25) mg/dL Glucose (74-99) mg/dL POC Glucose (mg/dL) 272 H 126 H (75-99) mg/dL 05/23/18 05/23/18 Range/Units 06:17 11:06 RBC (4.30-5.90) m/uL Hgb (13.0-17.5) gm/dL Hct (39.0-53.0) % RDW (11.5-15.5) % Sodium 135 L (137-145) mmol/L Chloride 83 L (98-107) mmol/L Carbon Dioxide 48 H* (22-30) mmol/L BUN 77 H (9-20) mg/dL Creatinine 1.55 H (0.66-1.25) mg/dL Glucose 109 H (74-99) mg/dL POC Glucose (mg/dL) 226 H (75-99) mg/dL Assessment and Plan Assessment: Assessment 1 acute dyspnea secondary to CHF/diastolic failure with a component of fluid overload and early pulmonary edema. This patient has chronic shortness of breath. There has been acute worsening and decompensation and the vascular status. Chest x-ray is consistent with heart failure, wide mediastinum and interstitial edema consistent with CHF and fluid overload. 2 acute hypoxic respiratory failure on top of chronic hypoxic respiratory failure. 3 CHF with diastolic heart failure and preserved LV function, echocardiogram from 01/17/2018 shows an ejection fraction of 55-60% and concentric left ventricular hypertrophy 4 moderate degree of pulmonary hypertension 5 chronic atrial fibrillation and the patient presented with A. fib/RVR time of admission. Anticoagulated with Xarelto. 6 COPD currently inactive in stable 7 morbid obesity with a BMI of 41.2 8 diabetes mellitus type 2 9 coronary artery disease with previous myocardial infarction and previous carotid bypass surgery 10 peripheral neuropathy 11 carcinoid tumor post small bowel resection, without evidence of any recurrence based on the most recent CAT scan of the abdomen 12 obstructive sleep apnea, nontolerant to CPAP therapy 13 carotid artery disease with less than 25% stenosis at the level of the carotid bifurcation and internal carotid artery and evidence of distal disease bilaterally involving probably more than 50% Plan The patient was seen and evaluated by Dr. Olea. We'll continue with the current treatment plan. His overall prognosis remains quite guarded. We'll continue to follow and make further recommendations based on his clinical status. I, the cosigning physician, performed a history & physical examination of the patient. Lungs sounds with crackles in the posterior bases, diminished. Maintaining good O2 saturations in the 90s on 3 liters per minute per nasal cannula. I discussed the assessment and plan of care with my nurse practitioner , Peyton Watts. I attest to the above note as dictated by her.
[2018-05-23] MEDS: METOLAZONE 5 MG TAB PO SCH (13:22)
[2018-05-23 16:21] LABS: Glucose,Whole Blood 165 mg/dL (75-99)
[2018-05-23] MEDS: RIVAROXABAN 15 MG TAB PO SCH (16:28)
[2018-05-23 20:17] LABS: Glucose,Whole Blood 177 mg/dL (75-99)
[2018-05-23] MEDS: MELATONIN 3 MG TABLET PO SCH (20:29)
[2018-05-23] MEDS: INSULIN DETEMIR 100 UNIT/ML 10 ML VIAL SQ SCH (20:29)
[2018-05-23] MEDS: ATORVASTATIN 20 MG TAB PO SCH (20:29)
[2018-05-24] MEDS: PANTOPRAZOLE 40 MG TABLET PO SCH (06:07)
[2018-05-24] MEDS: MIDODRINE 5 MG TAB PO SCH ×3 (06:07→17:35)
[2018-05-24 06:09] LABS: Glucose,Whole Blood 173 mg/dL (75-99)
[2018-05-24 06:20] LABS: Anisocytosis Slight; HCT 28.8 % (39.0-53.0); HGB 9.2 gm/dL (13.0-17.5); Hypochromasia Moderate; MCH 28.8 pg (25.0-35.0); MCHC 31.8 g/dL (31.0-37.0); MCV 90.6 fL (80.0-100.0); Mean Platelet Volume 7.2; Platelet Count 262 k/uL (150-450); Poikilocytosis Slight; RBC 3.18 m/uL (4.30-5.90); RDW 17.1 % (11.5-15.5); WBC 9.2 k/uL (3.8-10.6)
[2018-05-24 06:29] LABS: Calcium 8.8 mg/dL (8.4-10.2); Potassium 4.6 mmol/L (3.5-5.1)
[2018-05-24] MEDS: INSULIN ASPART 100 UNIT/ML 1 ML 10 ML VIAL SQ SCH ×7 (07:28→22:06)
[2018-05-24] MEDS: BUDESONIDE 1 MG/2 ML NEBU INHALATION SCH ×2 (07:30→19:51)
[2018-05-24] MEDS: IPRATROPIUM-ALBUTEROL 3 ML NEB INHALATION SCH ×4 (07:30→19:51)
[2018-05-24] MEDS: ASPIRIN 81 MG PO SCH (09:44)
[2018-05-24] MEDS: METOLAZONE 5 MG TAB PO SCH (09:44)
[2018-05-24] MEDS: SPIRONOLACTONE 25 MG TAB PO SCH ×2 (09:44→20:50)
[2018-05-24] MEDS: SACUBITRIL/VALSARTAN 24 MG-26 MG TABLET PO SCH ×2 (09:44→22:07)
[2018-05-24] MEDS: PREGABALIN 75 MG CAP PO SCH (09:45)
[2018-05-24] MEDS: guaiFENesin 600 MG TABLET.ER PO SCH ×2 (09:47→20:52)
[2018-05-24] MEDS: AMMONIUM LACTATE 12% LOTION 225 GM BTL TOPICAL SCH ×2 (09:47→20:56)
[2018-05-24] MEDS: TAMSULOSIN 0.4 MG CAP.ER.24H PO SCH (09:47)
[2018-05-24] MEDS: METOPROLOL SUCCINATE (ER) 50 MG TAB.ER.24H PO SCH (11:15)
[2018-05-24] MEDS: ACETAMINOPHEN TAB 325 MG TAB PO PRN (11:15)
[2018-05-24] MEDS: FUROSEMIDE 10 MG/ML 4 ML VIAL IV SCH ×3 (11:15→23:21)
[2018-05-24 12:01] LABS: Glucose,Whole Blood 153 mg/dL (75-99)
--- NOTE | 2018-05-24 14:46 | P.PN ---
Subjective Progress Note Date: 05/24/18 This is a 68-year-old male one of my patient wih known history of chronic hypercapnic and hypoxemic respiratory failure, advanced COPD with moderate pulmonary hypertension, known paroxysmal atrial fibrillation/ Flutter on long-term anticoagulation, chronic systolic heart heart failure with a recent EF 40% , restless leg, diabetes mellitus type 2, with diabetic polyneuropathy, patient was recently hospitalized at [facility] from till 05/03/2018 after he was admitted for acute hypercapneic and hypoxemic respiratory failure and acute systolic heart failure and he was sent to [facility] for PT and OT , I was following the patient very closely at [facility] and I was seening him twice per week and he was given multiple injectinons of lasix due to sudden ncrease in his weight and he was plced on CPAP most of the time, yeasterday went to [facility] him and he was in respiratory failure with mental status changes, and he was given Lasix 80 mg IM , along with his scheduled dose of Bumex and spironolactone , along with entresto without much help, EMS was called and he was sent to the ER at [facility] were he was found to have Pulmonary edema, he was started on Lasix 40 mg IV Q 8 H along with Entresto and Toprol, spironolactone, and patient was admitted to the hospital, cardiology consultation was obtained as welll as Pulmonary consult. Patient was seen by earlier in April and had a DCG and he was supposed to have a follow up with him regarding the treatment of A.Flutter but he never connected with him since he ended in the hospital in April 25 . we really need to find what was the result of the Holter that he had and try to intervene in A.Flutter management otherwise he will continue to have recurrent hospital admission due to decompensation of his systolic heart failure. 05/16: Patient states his breathing is a little bit better from yesterday. He continues to have lower extremity edema. He has been seen by cardiology and IV Lasix was discontinued, mentalis own was added at 2.5 mg daily and spironolactone was increased to 50 mg twice daily. We will resume patient back on Lasix 80 mg IV twice daily. We will resume IV Lasix at 40 mg. His weight is down 2 kg from admission. Patient's is to bring in CPAP. 05/17: Patient was started on Lasix drip yesterday by cardiology. His weight is down 5 kg since admission. Patient states he is tired and was up urinating every hour and a half during the night. He is noted to have his legs in a dependent position, Oscar wraps in place. Patient has less pedal edema and less edema in his abdomen. Patient did not wear his CPAP last night stating that it was because he was up so frequently. His CPAP is at bedside. Noted that CO2 is up to 44. Hemoglobin 10.7, creatinine 1.28. Capillary blood glucose running between 102 and 155. Pulse ox is 97% on 3 L. Patient's been afebrile. 05/20: Yesterday, patient was transitioned off Lasix drip and is on IV Lasix at 80 mg IV every 12 hours but he does not have IV access. Cardiology state they will address. Patient states he has not been urinating much since he's been off the drip. He continues to have lower extremity edema. Anticipate he will be ready for discharge the next 24 hours. 05/21: Last evening, patient became very confused and he was found on the floor by the main door. Patient denied any injury. ABGs were done the pH is 7.38, pCO2 66, PaO2 62, bicarb 39, total CO2 41 O2 saturation 89. Ammonia level is less than 9 and proBNP was 923. His Entresto and Aldactone was held last evening again this morning due to hypotension. He had a chest x-ray that shows heart failure. His weight is up from previous. He is currently on oral Bumex. Patient is diuresing well today. The patient is on CPAP. He apparently was lucid this morning and then around 9:00 had change in mental status with confusion. He is currently on CPAP. Heart rate has been running anywhere from 90-138. 05/22: Pulse ox is 95% on 4 L nasal cannula he was on BiPAP for several hours during the night. This morning sodium 136, chloride 84, CO2 41, BUN 77 creatinine 1.38. Potassium improved to 4.5. Blood sugar running between 119 - 181. Heart rate is running between 94 and 122. Blood pressure remains on the low side. He remains on Lasix 40 mg IV every 8 hours. Entresto and Aldactone were held last night for hypotension. Blood pressure is improved this morning with minimal drainage and patient received all of his medications. Patient has been diuresing well. His weight is down. He has found this morning, sleeping in a chair. He apparently was confused yesterday but improved mentation this morning 05/23: Patient is resting comfortably in a chair. Patient mental has improved. He is arousable and able to answer questions this morning. His pulse ox was 95% on 4 L nasal cannula. He is using a BiPAP during the night. Hemoglobin was 9.6, sodium was 135, chloride 83, CO2 was 48, BUN 77, creatinine 1.55, potassium 4.7. Blood sugars continue to be stable. Blood pressure continues to be on the low side. Patient has been diuresing well. His weight continues to be down. Patient as well as any complaints today. He is anxious to go home. 05/24: Patient apparently did not sleep last night and refused to wear his CPAP. This morning, he is very confused and spilled urinal all over his room. He initially refused his morning medications but is subsequently taken his medications. He has been afebrile, heart rate running in the 70s to low 100s. Blood pressure remains on the low side but improved with minute drain. Pulse ox is 97% on 4 L nasal cannula. Hemoglobin 9.2, CO2 42, BUN 84 and creatinine 1.78. Blood sugars up and running between 153 and 177. His weight is now down a full 10 kg since admission. He is maintained on Lasix 40 mg IV every 8 hours , Zaroxolyn 5 mg daily, Entresto 12/01 a tablet twice daily and Aldactone [address] Olea to discuss yesterday with the patient's that hospice could be an option. At this point, patient is making very little progress. Review Of Systems: Unable to obtain due to mental status changes Objective - Vital Signs Vital signs: Vital Signs Temp 97.5 F L 05/24/18 07:37 Pulse 98 05/24/18 07:58 Resp 18 05/24/18 07:37 BP 95/55 05/24/18 07:37 Pulse Ox 96 05/24/18 07:37 Intake & Output 11/05/24/18 05/24/18 18:59 06:59 18:59 Intake Total 1404 Output Total 1602 1704 Balance -198 -1704 Weight 138.3 kg Intake: Oral 1404 Output: Urine 1600 1700 Stool 2 4 Other: Voiding Method Toilet Toilet Diaper Diaper # Voids 1 - Exam General appearance: no distress, obese, patient is in bed - EENT Eyes: anicteric sclerae, EOMI, PERRLA, no ptosis, no scleral icterus, normal appearance ENT: hard of hearing, NA/AT, normal oropharynx, no thrush Ears: bilateral: normal - Neck Neck: no lymphadenopathy, normal ROM, no rigidity, no stridor, no thyromegaly Carotids: bilateral: upstroke normal Thyroid: bilateral: normal size - Respiratory Respiratory: bilateral: diminished, negative: dullness, rales, rhonchi, wheezing , prolonged expiration, patient on BiPAP - Cardiovascular Rhythm: irregularly irregular Heart sounds: normal: S1, S2 Abnormal Heart Sounds: systolic murmur - Gastrointestinal General gastrointestinal: distended, hyperactive bowel sounds, soft, no tenderness, no umbilical hernia, no ventral hernia - Integumentary Integumentary: normal, normal turgor - Neurologic Neurologic: CNII-XII intact - Musculoskeletal Musculoskeletal: generalized weakness, strength equal bilaterally, 2+ pedal edema - Psychiatric Psychiatric: A&O x's 0, no appropriate affect, no intact judgment & insight - Labs CBC & Chem 7: 05/24/18 05:51 05/24/18 05:51 Labs: Abnormal Lab Results - Last 24 Hours (Table) 05/23/18 05/23/18 05/23/18 Range/Units 11:06 16:19 20:15 RBC (4.30-5.90) m/uL Hgb (13.0-17.5) gm/dL Hct (39.0-53.0) % RDW (11.5-15.5) % Sodium (137-145) mmol/L Chloride (98-107) mmol/L Carbon Dioxide (22-30) mmol/L BUN (9-20) mg/dL Creatinine (0.66-1.25) mg/dL Glucose (74-99) mg/dL POC Glucose (mg/dL) 226 H 165 H 177 H (75-99) mg/dL 05/24/18 05/24/18 05/24/18 Range/Units 05:51 05:51 06:07 RBC 3.18 L (4.30-5.90) m/uL Hgb 9.2 L (13.0-17.5) gm/dL Hct 28.8 L (39.0-53.0) % RDW 17.1 H (11.5-15.5) % Sodium 133 L (137-145) mmol/L Chloride 83 L (98-107) mmol/L Carbon Dioxide 42 H* (22-30) mmol/L BUN 84 H (9-20) mg/dL Creatinine 1.78 H (0.66-1.25) mg/dL Glucose 153 H (74-99) mg/dL POC Glucose (mg/dL) 173 H (75-99) mg/dL Assessment and Plan Plan: 1. Acute on chronic diastolic heart failure with acute on chronic hypercapnic and hypoxic respiratory failure secondary to CO2 retention and sleep apnea. Continue IV Lasix 40 mg every 8 hours, Zaroxolyn 5 mg daily, Aldactone 50 mg twice daily and Entresto 25/26 half tablet twice daily. Cardiology consult appreciated. Midodrine started to maintain blood pressure for diuresing. 2. Acute on chronic hypercapneic and hypoxemic respiratory failure. we will continue with CPAP, O2 and duoneb 3m NEB QID along with pulmicort 1 mg NEB bid. Pulmonary consult. Patient is to use CPAP when sleeping during the day and at night. 3. Advanced COPD. we will continue with Neb Rx as above. 4. Paroxysmal atrial fibrillation/Flutter. we will continue with Metoprolol 100 mg orally daily and Xarelto 20 mg orally daily, cardiology evaluation and try to get the result of the DCG that was done as outpatient with . 5. Hypertension and hypertensive cardiovascular disease, with hypotension. we will continue with Metoprolol 100 mg orally daily and Entresto 24/26 mg half tablet orally daily. 6. Diabetes Mellitus type 2 uncontrolled. Continue Levemir to 32 units sc qhs and will continue with Novolog 12-15 units AC meals tid, along with SSI, we will continue with CCA 1800 diet and BGM AC meals and at bedtime. 7. Diabetic polyneuropathy. we will contiue with Lyrica 150 mg orally qhs. 8. Restless leg syndrome. we will continue with Requip 1.5 mg orally at bedtime. 9. Hyperlipidemia. we will continue with Lipitor 20 mg orally daily. 10. Obestiy with PEDRO and OHS. we will continue with CPAP, may need his mask adjusted we will call [facility] to reevaluate. 11. Vitamin D deficiency. we will continue with vit D q week. 12. GERD . will continue with Protonix 40 mg orally daily. 13.BPH. we will continue with Flomax 0.4 mg orally daily. 14. DVT prophylaxis. we will continue with Xarelto 20 mg orally daily. 15. GI prophylaxis. we will continue with PPI. 16. Full code. 17. Metabolic encephalopathy secondary to hypercapnia. Discharge plan: Return to [facility] on Sunday Impression and plan of care have been directed as dictated by the signing physician. Larissa Warner nurse practitioner acting as scribe for signing physician.
--- NOTE | 2018-05-24 15:35 | P.PN ---
Subjective Progress Note Date: 05/24/18 Principal diagnosis: Exacerbation of diastolic congestive heart failure 68-year-old male patient is well-known to me who comes in again to the hospital because of worsening shortness of breath. The patient came into the ED for increased dyspnea over the past few days. He has also noted some increased swelling lower oximetry is bilaterally. According to him has gained around additional 20 pounds above and beyond his baseline. I went and looked at the records and the patient has gained significant amount of weight since summer. He denies having any significant cough or sputum production. No chest pain. He is known to have multiple medical problems and comorbidities as mentioned earlier in the medical records. Upon arrival to the hospital, the patient was also in atrial fibrillation she has been in a chronic basis and his heart rate was 101.. His white cell count is not elevated. His renal function is within normal limits. His correlation profile is also within normal limits. The BNP level is at 1040. First is of cardiac enzymes was negative. The patient currently is on a combination of Zaroxolyn 2.5 mg by mouth daily, Aldactone 50 Bmouth twice a day and he is also on metoprolol 100 mg by mouth daily and Entresto 24/26 one tablet daily and he is also on long-term medical condition with Xarelto. In terms of medical problems and comorbidities, the patient is morbidly obese and he has a BMI of 44.5. He has untreated obstructive sleep apnea as the patient was unable to tolerate CPAP therapy. He is known to have chronic atrial fibrillation. He has COPD, moderate degree of pulmonary hypertension, chronic atrial fibrillation, chronic systolic heart failure with an ejection fraction of 40%, diabetes mellitus type 2, diabetic peripheral neuropathy, restless leg syndrome, patient also has history of coronary artery disease. He has been forced AR on multiple occasions. His undergone coronary artery bypass surgery. 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 Follow-up CAT scan of the abdomen and pelvis was done last month did not show any recurrent tumor within the abdomen. His been disease free since his surgery. He is known to have chronic diverticular disease. He has also chronic pain/back pain. Patient is seen today in consultation in the cardiac floor. He is currently sitting up in a chair at the bedside. He is awake and alert in no acute distress. He is somewhat unclear as to why he was brought here from the extended-care facility. He does state he has ongoing shortness of breath. He is currently maintaining good O2 saturations in the 90s on 4 L per minute per nasal cannula. He is afebrile. Hemodynamically stable. The patient is seen again today 05/16/2018 in follow-up on the selective care unit. He is currently sitting up in a chair at the bedside. He is awake and alert in no acute distress. He continues to diurese well. He remains with fluid volume overload. 1-2+ peripheral edema lower extremities and in the sacral area. He remains on Lasix 80 mg IV push every 12 hours. He is maintaining good O2 saturations in the upper 90s on 4 L/m per nasal cannula. He is afebrile. Hemodynamically stable. On 05/17/2018, I am seeing this patient for a follow-up. His resting comfortably in bed. He is diuresing aggressively. His weight is down and his current BMI is 43.0. He has diuresed in order of 4 L negative fluid balance over the past 24 hours and is currently on IV Lasix. Extremities are less swollen. The patient still has lower extremity edema and pre-sacral edema. No cough. No sputum production. No chest tightness. No wheezing. No other complaints otherwise for now. He is afebrile. He is hemodynamically stable. The patient is seen again today 05/18/2018 in follow-up on the selective care unit. He is currently sitting up in a chair at the bedside. Awake and alert in no acute distress. He is down another 2 kg. Total down 6 kg since admission. His peripheral and sacral edema has improved. Less abdominal fullness. He is maintaining good O2 saturations in the mid to upper 90s on 4 L/ m per nasal cannula. He's been afebrile. Blood cultures reveal no growth. Sodium 133. Bicarb 42. Creatinine 1.38. Remains on a Lasix drip at 10 mg per hour. On 05/19/2018 patient seen in follow-up on selective care unit. He is awake and alert, sitting up in the recliner, in no acute distress, eyes worsening dyspnea or chest pain, currently on 4 L per nasal cannula his pulse ox is 93%, I 'll signs are stable, patient remains on Lasix drip at 10 mg per hour, and his urine output is decreased, and patient is actually in positive fluid balance over the last 24 hours. Blood work has been reviewed, showed WBC of 7.5, hemoglobin of 10.5, sodium of 134 potassium 4.4, CO2 is 41, and patient's renal profile continues to worsen, BUN is 67 creatinine 1.6. Patient still has 2+ bilateral lower extremity edema, his legs have been raymon wrapped. Patient states he is having voice hoarseness, which has been bothering him for last week , the states this has been going on for several months. No thrush noted upon inspection of the oropharynx. On 05/20/2018 patient seen in follow-up on selective care unit, he is awake and alert, in no acute distress, no worsening shortness of breath or chest pain. Patient has lost his IV access, and after multiple tries we were unable to establish access, Lasix drip has been transitioned to IV push Lasix 80 mg twice daily, probably have to be switched to oral Lasix. Lung sounds are diminished, no rhonchi, no wheezes. Is currently on 3 L per nasal cannula his pulse ox of 96%, he is afebrile, hemodynamically stable. Lab work has been reviewed, renal profile continues to worsen, with B1 up to 78, creatinine is 1.78. She is in positive fluid balance, and today's weight has shown an increase of 2 kg. Cultures are negative, no fever no chills, cough, no chest congestion, no wheezing On 05/21/2018 patient seen in follow-up on selective care unit. Patient had a fall last night, no apparent injury. Blood gas was obtained, and showed pO2 of 62, pCO2 of 66, and pH of 7.38, this was done on FiO2 of 36%, patient denied hitting his head, vitals were stable. Patient was started on oral Bumex yesterday, he receive additional dose of oral Lasix 80 mg early this morning, this morning's chest x-ray shows increased interstitium, changes consistent with congestive heart failure, this was compared to previous chest x-ray from and shows improvement in aeration of bilateral bases, and improvement in the appearance of bilateral pleural effusions. Patient is refusing to wear the BiPAP, he states the mask is very uncomfortable, and suffocating him. He does have his CPAP unit from home, and we will try to have him wear his CPAP unit at bedtime and as needed during the day. Remains afebrile, pulse ox on 4 L per nasal cannula is 97%, this morning patient is alert, oriented to place, and person, where he is intermittently confused, and impulsive. Patient is attempting to ambulate without waiting for help, he coming increasingly more agitated when the safety alarm goes off in his bed. he is threatening to leave AGAINST MEDICAL ADVICE. Lung sounds reveal better air entry bilaterally, no crackles, no wheezes or rhonchi. Denies any chest pain, denies any worsening shortness of breath, he still has extensive edema in his bilateral lower extremities. Patient still has no IV access, and per attending physician it was okay to leave the IVs out. This morning's labs have been reviewed and showed sodium of 131, potassium is 5.4, chloride is 83, CO2 is 42, Bun is 86 and creatinine is 1.5. Repeat gas this morning showed pO2 of 73, pCO2 65, and pH of 7.4 on FiO2 of 32%. We will continue current medical treatment, will continue with oral diuretics, Aldactone, Zaroxolyn. Patient can wear his CPAP unit from home. home help aide will be placed at the bedside. On 05/22/2018 patient seen in follow-up on selective care unit, yesterday we restarted patient's IV diuretics, patient is diuresing, according to the weight , he is down 7.1 kg in the last 24-48 hours. Mentation seems to have improved, patient is less confused, he knows where he is, he knows the date and the president. he is still unable to wear his CPAP for very long, he was only able to wear it for 20 minutes last night, and for short periods of time during the day in between his trips to the bathroom. Today's blood work has been reviewed , and show sodium of 136, potassium is 4.5, chloride is 84, CO2 41, BUN of 77 and creatinine of 1.38, profile seems to have improved, patient has a health and safety advisor and his at the bedside, patient's is quite frustrated, yesterday we talked with her about patient's CODE STATUS, patient's is struggling to make a decision. Patient remains a full code, the states she understands his quality of life is very poor in between frequent hospitalizations. She states patient is difficult to handle for her especially when he gets agitated, during times of hypoxia. He frequently does not wear his CPAP even at home, and she does not know how to turn on the machine or put it on him. Will continue with current medical treatment, the appearance of bilateral lower extremity edema is slightly improved compared to yesterday. He is on combination of IV Lasix, Aldactone and Zaroxolyn. We'll continue with the same On 05/24/2018 patient seen in follow-up on selective care unit. Continues on IV diuretics, he is in -1902 fluid balance over last 24 hours, however she is not wearing the BiPAP for his home CPAP consistently, morning is more confused. Currently on 4 L per nasal cannula, his pulse ox is 92%, he is afebrile. Yesterday chest x-ray showed essentially stable features of congestive heart failure. His labs have been reviewed, WBC is 9.2, hemoglobin is 9.2, sodium is 133, CO2 is 42, BUN is 84 and creatinine is 1.7. Objective - Vital Signs Vital signs: Vital Signs Temp 97.4 F L 05/24/18 15:23 Pulse 85 05/24/18 15:23 Resp 18 05/24/18 15:23 BP 127/92 05/24/18 15:23 Pulse Ox 92 L 05/24/18 15:23 Intake & Output 05/23/18 05/24/18 05/24/18 18:59 06:59 18:59 Intake Total 1404 360 Output Total 1602 1704 500 Balance -198 -1704 -140 Weight 138.3 kg Intake: Oral 1404 360 Output: Urine 1600 1700 500 Stool 2 4 Other: Voiding Method Toilet Toilet Toilet Diaper Diaper Diaper # Voids 1 1 - Exam Gen. appearance obese, comfortable and mild degree of respiratory distress. Sitting up on a chair. Head exam was generally normal. There was no scleral icterus or corneal arcus. Mucous membranes were moist. Neck is short and supple and the patient is a Mallampati class IV. There is a little neck masses. Lungs sounds are diminished in lung bases bilaterally . Breath sounds are diminished bilaterally. Heart sounds are irregular tachycardia consistent with atrial fibrillation. It is an irregular S1 and S2. No significant murmurs appreciated. Sternum stable clean and intact. Abdominal exam revealed normal bowel sounds. The abdomen was soft, non-tender, and without masses, organomegaly, or appreciable enlargement of the abdominal aorta. Extremities reveal 2+ pitting leg, ankle edema. There is no cyanosis or clubbing. No wounds or sores. Examination of the skin revealed no evidence of significant rashes, suspicious appearing nevi or other concerning lesions. Neurologically is awake and alert there is no focal neurological deficits. Patient was noted to be intermittently confused - Labs CBC & Chem 7: 05/24/18 05:51 05/24/18 05:51 Labs: Abnormal Lab Results - Last 24 Hours (Table) 05/23/18 05/23/18 05/24/18 Range/Units 16:19 20:15 05:51 RBC 3.18 L (4.30-5.90) m/uL Hgb 9.2 L (13.0-17.5) gm/dL Hct 28.8 L (39.0-53.0) % RDW 17.1 H (11.5-15.5) % Sodium (137-145) mmol/L Chloride (98-107) mmol/L Carbon Dioxide (22-30) mmol/L BUN (9-20) mg/dL Creatinine (0.66-1.25) mg/dL Glucose (74-99) mg/dL POC Glucose (mg/dL) 165 H 177 H (75-99) mg/dL 05/24/18 05/24/18 05/24/18 Range/Units 05:51 06:07 11:54 RBC (4.30-5.90) m/uL Hgb (13.0-17.5) gm/dL Hct (39.0-53.0) % RDW (11.5-15.5) % Sodium 133 L (137-145) mmol/L Chloride 83 L (98-107) mmol/L Carbon Dioxide 42 H* (22-30) mmol/L BUN 84 H (9-20) mg/dL Creatinine 1.78 H (0.66-1.25) mg/dL Glucose 153 H (74-99) mg/dL POC Glucose (mg/dL) 173 H 153 H (75-99) mg/dL Assessment and Plan Plan: 1 acute dyspnea secondary to CHF/diastolic failure with a component of fluid overload and early pulmonary edema. This patient has chronic shortness of breath. There has been acute worsening and decompensation and the vascular status. Chest x-ray is consistent with heart failure, wide mediastinum and interstitial edema consistent with CHF and fluid overload. 2 acute hypoxic respiratory failure on top of chronic hypoxic respiratory failure. 3 CHF with diastolic heart failure and preserved LV function, echocardiogram from 01/17/2018 shows an ejection fraction of 55-60% and concentric left ventricular hypertrophy 4 moderate degree of pulmonary hypertension 5 chronic atrial fibrillation and the patient presented with A. fib/RVR time of admission. Anticoagulated with Xarelto. 6 COPD currently inactive in stable 7 morbid obesity with a BMI of 44.5 8 diabetes mellitus type 2 9 coronary artery disease with previous myocardial infarction and previous carotid bypass surgery 10 peripheral neuropathy 11 carcinoid tumor post small bowel resection, without evidence of any recurrence based on the most recent CAT scan of the abdomen 12 obstructive sleep apnea, nontolerant to CPAP therapy 13 carotid artery disease with less than 25% stenosis at the level of the carotid bifurcation and internal carotid artery and evidence of distal disease bilaterally involving probably more than 50% Plan: Continue IV diuretics, encouraged patient to wear BiPAP at home CPAP at night. Maintain safety precautions. Overall prognosis is very guarded. I performed a history & physical examination of the patient and discussed their management with my nurse practitioner, Ketty Loja. I reviewed the nurse practitioner's note and agree with the documented findings and plan of care. Lung sounds are diminished breath sounds at the bases. The findings and the impression was discussed with the patient. I attest to the documentation by the nurse practitioner. Time with Patient: Less than 30
[2018-05-24 16:42] LABS: Glucose,Whole Blood 134 mg/dL (75-99)
[2018-05-24] MEDS: RIVAROXABAN 15 MG TAB PO SCH (17:36)
[2018-05-24] MEDS: ATORVASTATIN 20 MG TAB PO SCH (20:51)
[2018-05-24] MEDS: MELATONIN 3 MG TABLET PO SCH (20:51)
[2018-05-24] MEDS: HYDROcodone/APAP 5-325MG 1 EACH TAB PO PRN (20:52)
[2018-05-24 21:33] LABS: Glucose,Whole Blood 195 mg/dL (75-99)
[2018-05-24] MEDS: INSULIN DETEMIR 100 UNIT/ML 10 ML VIAL SQ SCH (22:06)
[2018-05-25] MEDS ORDERED: MIDODRINE 5 MG TAB PO STA (03:44)
[2018-05-25] MEDS: FUROSEMIDE 10 MG/ML 4 ML VIAL IV SCH ×3 (03:45→23:48)
[2018-05-25 05:52] LABS: Glucose,Whole Blood 133 mg/dL (75-99)
[2018-05-25] MEDS: INSULIN ASPART 100 UNIT/ML 1 ML 10 ML VIAL SQ SCH ×7 (06:33→21:13)
[2018-05-25] MEDS: PANTOPRAZOLE 40 MG TABLET PO SCH (06:35)
[2018-05-25] MEDS: MIDODRINE 5 MG TAB PO SCH ×3 (06:35→17:51)
[2018-05-25] MEDS: BUDESONIDE 1 MG/2 ML NEBU INHALATION SCH ×2 (07:21→19:07)
[2018-05-25] MEDS: IPRATROPIUM-ALBUTEROL 3 ML NEB INHALATION SCH ×4 (07:22→19:07)
[2018-05-25] MEDS: guaiFENesin 600 MG TABLET.ER PO SCH ×2 (08:18→22:13)
[2018-05-25] MEDS: PREGABALIN 75 MG CAP PO SCH (08:18)
[2018-05-25] MEDS: TAMSULOSIN 0.4 MG CAP.ER.24H PO SCH (08:18)
[2018-05-25] MEDS: ACETAMINOPHEN TAB 325 MG TAB PO PRN (08:18)
[2018-05-25] MEDS: ASPIRIN 81 MG PO SCH (08:18)
[2018-05-25] MEDS: SACUBITRIL/VALSARTAN 24 MG-26 MG TABLET PO SCH ×2 (10:44→22:07)
[2018-05-25] MEDS: SPIRONOLACTONE 25 MG TAB PO SCH ×2 (10:44→22:07)
[2018-05-25] MEDS: METOPROLOL SUCCINATE (ER) 50 MG TAB.ER.24H PO SCH (10:44)
[2018-05-25] MEDS: METOLAZONE 5 MG TAB PO SCH (10:44)
[2018-05-25] MEDS: AMMONIUM LACTATE 12% LOTION 225 GM BTL TOPICAL SCH ×2 (11:22→22:06)
[2018-05-25 11:38] LABS: Glucose,Whole Blood 175 mg/dL (75-99)
--- NOTE | 2018-05-25 13:18 | P.PN ---
Subjective Progress Note Date: 05/25/18 Principal diagnosis: Acute exacerbation of diastolic congestive heart failure 68-year-old male patient is well-known to me who comes in again to the hospital because of worsening shortness of breath. The patient came into the ED for increased dyspnea over the past few days. He has also noted some increased swelling lower oximetry is bilaterally. According to him has gained around additional 20 pounds above and beyond his baseline. I went and looked at the records and the patient has gained significant amount of weight since summer. He denies having any significant cough or sputum production. No chest pain. He is known to have multiple medical problems and comorbidities as mentioned earlier in the medical records. Upon arrival to the hospital, the patient was also in atrial fibrillation she has been in a chronic basis and his heart rate was 101.. His white cell count is not elevated. His renal function is within normal limits. His correlation profile is also within normal limits. The BNP level is at 1040. First is of cardiac enzymes was negative. The patient currently is on a combination of Zaroxolyn 2.5 mg by mouth daily, Aldactone 50 Bmouth twice a day and he is also on metoprolol 100 mg by mouth daily and Entresto 24/ one tablet daily and he is also on long-term medical condition with Xarelto. In terms of medical problems and comorbidities, the patient is morbidly obese and he has a BMI of 44.5. He has untreated obstructive sleep apnea as the patient was unable to tolerate CPAP therapy. He is known to have chronic atrial fibrillation. He has COPD, moderate degree of pulmonary hypertension, chronic atrial fibrillation, chronic systolic heart failure with an ejection fraction of 40%, diabetes mellitus type 2, diabetic peripheral neuropathy, restless leg syndrome, patient also has history of coronary artery disease. He has been forced MA on multiple occasions. His undergone coronary artery bypass surgery. 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 Follow-up CAT scan of the abdomen and pelvis was done last month did not show any recurrent tumor within the abdomen. His been disease free since his surgery. He is known to have chronic diverticular disease. He has also chronic pain/back pain. Patient is seen today in consultation in the cardiac floor. He is currently sitting up in a chair at the bedside. He is awake and alert in no acute distress. He is somewhat unclear as to why he was brought here from the extended-care facility. He does state he has ongoing shortness of breath. He is currently maintaining good O2 saturations in the 90s on 4 L per minute per nasal cannula. He is afebrile. Hemodynamically stable. The patient is seen again today 05/16/2018 in follow-up on the selective care unit. He is currently sitting up in a chair at the bedside. He is awake and alert in no acute distress. He continues to diurese well. He remains with fluid volume overload. 1-2+ peripheral edema lower extremities and in the sacral area. He remains on Lasix 80 mg IV push every 12 hours. He is maintaining good O2 saturations in the upper 90s on 4 L/m per nasal cannula. He is afebrile. Hemodynamically stable. On 05/17/2018, I am seeing this patient for a follow-up. His resting comfortably in bed. He is diuresing aggressively. His weight is down and his current BMI is 43.0. He has diuresed in order of 4 L negative fluid balance over the past 24 hours and is currently on IV Lasix. Extremities are less swollen. The patient still has lower extremity edema and pre-sacral edema. No cough. No sputum production. No chest tightness. No wheezing. No other complaints otherwise for now. He is afebrile. He is hemodynamically stable. The patient is seen again today 05/18/2018 in follow-up on the selective care unit. He is currently sitting up in a chair at the bedside. Awake and alert in no acute distress. He is down another 2 kg. Total down 6 kg since admission. His peripheral and sacral edema has improved. Less abdominal fullness. He is maintaining good O2 saturations in the mid to upper 90s on 4 L/ m per nasal cannula. He's been afebrile. Blood cultures reveal no growth. Sodium 133. Bicarb 42. Creatinine 1.38. Remains on a Lasix drip at 10 mg per hour. On 05/19/2018 patient seen in follow-up on selective care unit. He is awake and alert, sitting up in the recliner, in no acute distress, eyes worsening dyspnea or chest pain, currently on 4 L per nasal cannula his pulse ox is 93%, I 'll signs are stable, patient remains on Lasix drip at 10 mg per hour, and his urine output is decreased, and patient is actually in positive fluid balance over the last 24 hours. Blood work has been reviewed, showed WBC of 7.5, hemoglobin of 10.5, sodium of 134 potassium 4.4, CO2 is 41, and patient's renal profile continues to worsen, BUN is 67 creatinine 1.6. Patient still has 2+ bilateral lower extremity edema, his legs have been raymon wrapped. Patient states he is having voice hoarseness, which has been bothering him for last week , the states this has been going on for several months. No thrush noted upon inspection of the oropharynx. On 05/20/2018 patient seen in follow-up on selective care unit, he is awake and alert, in no acute distress, no worsening shortness of breath or chest pain. Patient has lost his IV access, and after multiple tries we were unable to establish access, Lasix drip has been transitioned to IV push Lasix 80 mg twice daily, probably have to be switched to oral Lasix. Lung sounds are diminished, no rhonchi, no wheezes. Is currently on 3 L per nasal cannula his pulse ox of 96%, he is afebrile, hemodynamically stable. Lab work has been reviewed, renal profile continues to worsen, with B1 up to 78, creatinine is 1.78. She is in positive fluid balance, and today's weight has shown an increase of 2 kg. Cultures are negative, no fever no chills, cough, no chest congestion, no wheezing On 05/21/2018 patient seen in follow-up on selective care unit. Patient had a fall last night, no apparent injury. Blood gas was obtained, and showed pO2 of 62, pCO2 of 66, and pH of 7.38, this was done on FiO2 of 36%, patient denied hitting his head, vitals were stable. Patient was started on oral Bumex yesterday, he receive additional dose of oral Lasix 80 mg early this morning, this morning's chest x-ray shows increased interstitium, changes consistent with congestive heart failure, this was compared to previous chest x-ray from and shows improvement in aeration of bilateral bases, and improvement in the appearance of bilateral pleural effusions. Patient is refusing to wear the BiPAP, he states the mask is very uncomfortable, and suffocating him. He does have his CPAP unit from home, and we will try to have him wear his CPAP unit at bedtime and as needed during the day. Remains afebrile, pulse ox on 4 L per nasal cannula is 97%, this morning patient is alert, oriented to place, and person, where he is intermittently confused, and impulsive. Patient is attempting to ambulate without waiting for help, he coming increasingly more agitated when the safety alarm goes off in his bed. he is threatening to leave AGAINST MEDICAL ADVICE. Lung sounds reveal better air entry bilaterally, no crackles, no wheezes or rhonchi. Denies any chest pain, denies any worsening shortness of breath, he still has extensive edema in his bilateral lower extremities. Patient still has no IV access, and per attending physician it was okay to leave the IVs out. This morning's labs have been reviewed and showed sodium of 131, potassium is 5.4, chloride is 83, CO2 is 42, Bun is 86 and creatinine is 1.5. Repeat gas this morning showed pO2 of 73, pCO2 65, and pH of 7.4 on FiO2 of 32%. We will continue current medical treatment, will continue with oral diuretics, Aldactone, Zaroxolyn. Patient can wear his CPAP unit from home. welding pantograph operator will be placed at the bedside. On 05/22/2018 patient seen in follow-up on selective care unit, yesterday we restarted patient's IV diuretics, patient is diuresing, according to the weight , he is down 7.1 kg in the last 24-48 hours. Mentation seems to have improved, patient is less confused, he knows where he is, he knows the date and the president. he is still unable to wear his CPAP for very long, he was only able to wear it for 20 minutes last night, and for short periods of time during the day in between his trips to the bathroom. Today's blood work has been reviewed , and show sodium of 136, potassium is 4.5, chloride is 84, CO2 41, BUN of 77 and creatinine of 1.38, profile seems to have improved, patient has a safety consultant and his at the bedside, patient's is quite frustrated, yesterday we talked with her about patient's CODE STATUS, patient's is struggling to make a decision. Patient remains a full code, the states she understands his quality of life is very poor in between frequent hospitalizations. She states patient is difficult to handle for her especially when he gets agitated, during times of hypoxia. He frequently does not wear his CPAP even at home, and she does not know how to turn on the machine or put it on him. Will continue with current medical treatment, the appearance of bilateral lower extremity edema is slightly improved compared to yesterday. He is on combination of IV Lasix, Aldactone and Zaroxolyn. We'll continue with the same The patient is seen again today 05/23/2018 in follow-up on the selective care unit. He is currently sitting up in a chair at the bedside. He is awake and alert in no acute distress. He's been slow to progress. Currently maintaining O2 saturations in the mid 90s on 3 L/m per nasal cannula. Afebrile. Blood cultures reveal no growth. White count 8.3. Hemoglobin 9.6. Bicarb 48. Creatinine 1.55. He is currently on Lasix 40 mg IV every 8 hours. Anticoagulated with Xarelto. On 05/24/2018 patient seen in follow-up on selective care unit. Continues on IV diuretics, he is in -1902 fluid balance over last 24 hours, however she is not wearing the BiPAP for his home CPAP consistently, morning is more confused. Currently on 4 L per nasal cannula, his pulse ox is 92%, he is afebrile. Yesterday chest x-ray showed essentially stable features of congestive heart failure. His labs have been reviewed, WBC is 9.2, hemoglobin is 9.2, sodium is 133, CO2 is 42, BUN is 84 and creatinine is 1.7. The patient is seen again today 05/25/2018 in follow-up on the selective care unit. He has been slow to progress. He is currently maintaining O2 saturations in the 90s on 4 L/m per nasal cannula. He has been afebrile. Currently in a negative balance. He remains on IV diuretics. Blood cultures reveal no growth. No new labs today. His overall prognosis remains quite guarded and poor. He may actually benefit from a hospice referral. Objective - Vital Signs Vital signs: Vital Signs Temp 98.1 F 05/25/18 08:10 Pulse 95 05/25/18 12:09 Resp 16 05/25/18 11:59 BP 89/53 05/25/18 11:58 Pulse Ox 96 05/25/18 11:58 Intake & Output 05/24/18 05/25/18 05/25/18 18:59 06:59 18:59 Intake Total 600 458 240 Output Total 500 800 Balance 100 458 -560 Weight 127.7 kg Intake: Oral 600 458 240 Output: Urine 500 800 Other: Voiding Method Toilet Toilet Diaper Diaper # Voids 1 1 - Exam Gen. appearance obese, comfortable and mild degree of respiratory distress. Sitting up on a chair. Confused at times. Head exam was generally normal. There was no scleral icterus or corneal arcus. Mucous membranes were moist. Neck is short and supple and the patient is a Mallampati class IV. There is a little neck masses. Lungs sounds are diminished in lung bases bilaterally along with some limited bibasilar crackles. Breath sounds are diminished bilaterally. Heart sounds are irregular tachycardia consistent with atrial fibrillation. It is an irregular S1 and S2. No significant murmurs appreciated. Sternum stable clean and intact. Abdominal exam revealed normal bowel sounds. The abdomen was soft, non-tender, and without masses, organomegaly, or appreciable enlargement of the abdominal aorta. Extremities reveal 2+ ankle edema. There is no cyanosis or clubbing. No wounds or sores. Examination of the skin revealed no evidence of significant rashes, suspicious appearing nevi or other concerning lesions. Neurologically is awake and alert there is no focal neurological deficits. - Labs CBC & Chem 7: 05/24/18 05:51 05/24/18 05:51 Labs: Abnormal Lab Results - Last 24 Hours (Table) 05/24/18 05/24/18 05/25/18 Range/Units 16:38 21:29 05:50 POC Glucose (mg/dL) 134 H 195 H 133 H (75-99) mg/dL 05/25/18 Range/Units 11:33 POC Glucose (mg/dL) 175 H (75-99) mg/dL Assessment and Plan Assessment: Assessment 1 acute dyspnea secondary to CHF/diastolic failure with a component of fluid overload and early pulmonary edema. This patient has chronic shortness of breath. There has been acute worsening and decompensation and the vascular status. Chest x-ray is consistent with heart failure, wide mediastinum and interstitial edema consistent with CHF and fluid overload. 2 acute hypoxic respiratory failure on top of chronic hypoxic respiratory failure. 3 CHF with diastolic heart failure and preserved LV function, echocardiogram from 01/17/2018 shows an ejection fraction of 55-60% and concentric left ventricular hypertrophy 4 moderate degree of pulmonary hypertension 5 chronic atrial fibrillation and the patient presented with A. fib/RVR time of admission. Anticoagulated with Xarelto. 6 COPD currently inactive in stable 7 morbid obesity with a BMI of 41.2 8 diabetes mellitus type 2 9 coronary artery disease with previous myocardial infarction and previous carotid bypass surgery 10 peripheral neuropathy 11 carcinoid tumor post small bowel resection, without evidence of any recurrence based on the most recent CAT scan of the abdomen 12 obstructive sleep apnea, nontolerant to CPAP therapy 13 carotid artery disease with less than 25% stenosis at the level of the carotid bifurcation and internal carotid artery and evidence of distal disease bilaterally involving probably more than 50% Plan The patient was seen and evaluated by Dr. Olea. We'll continue with the current treatment plan. His overall prognosis remains quite poor. He may benefit from a hospice referral. Awaiting more discussion with family. In the interim, we'll continue to follow and make further recommendations based on his clinical status. I, the cosigning physician, performed a history & physical examination of the patient. Lungs sounds with crackles in the posterior bases, diminished. Maintaining O2 saturations in the 90s on 4 liters per minute per nasal cannula. I discussed the assessment and plan of care with my nurse practitioner, Peyton Watts. I attest to the above note as dictated by her.
--- NOTE | 2018-05-25 13:23 | P.PN ---
Subjective Progress Note Date: 05/25/18 This is a 68-year-old gentleman seen in consultation yesterday by Dr. VC Hamlin. Presented to the hospital with symptoms of a 2-3 day duration of shortness of breath currently receiving treatment for congestive cardiac failure. Patient has known history of coronary artery disease with prior bypass surgery, moderate to severe COPD, persistent atrial flutter, status post prior ablation. Blood pressure this morning 95/60 with a heart rate in the 90s , 95% on 4 L of oxygen. White blood cell count 9.4, hemoglobin 9.9, platelet count 198. We will discontinue the IV Lasix today and start the patient on a Lasix drip. 05/22/2018 Patient seen and examined today, sitter is at bedside, still confused today. Sodium 136, potassium 4.5, chloride 84, CO2 41, BUN 77, creatinine 1.3 today. This point time patient remains a full code. 05/25/2018 Cardiology was asked today to reevaluate the patient because of hypotension. Apparently the decision has been made by the patient and the family at this point in time to be hospice care. Os recent blood pressure 88/50 with a heart rate in the 90s, 96% on 4 L. Patient denies any dizziness or lightheadedness. His breathing is overall stable. He continues to be on IV Lasix at this time. We will decrease his dose of Aldactone, continue the rest of his medications as he is asymptomatic his hypotension. Continue to follow. Objective - Vital Signs Vital signs: Vital Signs Temp 98.1 F 05/25/18 08:10 Pulse 95 05/25/18 12:09 Resp 16 05/25/18 11:59 BP 89/53 05/25/18 11:58 Pulse Ox 96 05/25/18 11:58 Intake & Output 05/24/18 05/25/18 05/25/18 18:59 06:59 18:59 Intake Total 600 458 240 Output Total 500 800 Balance 100 458 -560 Weight 127.7 kg Intake: Oral 600 458 240 Output: Urine 500 800 Other: Voiding Method Toilet Toilet Diaper Diaper # Voids 1 1 - Exam PHYSICAL EXAMINATION: GENERAL: 68-year-old gentleman in no acute distress at the time of my examination HEENT: Head is atraumatic, normocephalic. Pupils equal, round. Sclera anicteric. Conjunctiva are clear. Mucous membranes of the mouth are moist. Neck is supple. There is elevated jugular venous pressure. No carotid bruit is heard. HEART EXAMINATION: Heart S1, S2 normal. No murmur or gallop heard. CHEST EXAMINATION: Lungs reveal bibasilar rales with scattered wheezing throughout. ABDOMEN: Soft, nontender. Bowel sounds are heard. No organomegaly noted. EXTREMITIES: 2+ peripheral pulses with 2+ evidence of peripheral edema and no calf tenderness noted. NEUROLOGIC patient is awake, confused. - Labs CBC & Chem 7: 05/24/18 05:51 05/24/18 05:51 Labs: Abnormal Lab Results - Last 24 Hours (Table) 05/24/18 05/24/18 05/25/18 Range/Units 16:38 21:29 05:50 POC Glucose (mg/dL) 134 H 195 H 133 H (75-99) mg/dL 05/25/18 Range/Units 11:33 POC Glucose (mg/dL) 175 H (75-99) mg/dL Assessment and Plan Plan: Assessment 1 acute dyspnea secondary to CHF/diastolic failure with a component of fluid overload and early pulmonary edema. This patient has chronic shortness of breath. There has been acute worsening and decompensation and the vascular status. Chest x-ray is consistent with heart failure, wide mediastinum and interstitial edema consistent with CHF and fluid overload. 2 acute hypoxic respiratory failure on top of chronic hypoxic respiratory failure. 3 CHF with diastolic heart failure and preserved LV function, echocardiogram from 01/17/2018 shows an ejection fraction of 55-60% and concentric left ventricular hypertrophy 4 moderate degree of pulmonary hypertension 5 chronic atrial fibrillation and the patient presented with A. fib/RVR time of admission. Status post prior flutter ablation 6 COPD currently inactive in stable 7 morbid obesity with a BMI of 44.5 8 diabetes mellitus type 2 9 coronary artery disease with previous myocardial infarction and previous carotid bypass surgery 10 peripheral neuropathy 11 carcinoid tumor post small bowel resection, without evidence of any recurrence based on the most recent CAT scan of the abdomen 12 obstructive sleep apnea, nontolerant to CPAP therapy 13 carotid artery disease with less than 25% stenosis at the level of the carotid bifurcation and internal carotid artery and evidence of distal disease bilaterally involving probably more than 50% Plan From cardiology's perspective, we'll continue current dose of IV Lasix as ordered by pulmonary. We'll decrease this dose of Aldactone, continue the rest of his medications. DNP note has been reviewed, I agree with a documented findings and plan of care. Patient was seen and examined.
[2018-05-25 16:10] LABS: Glucose,Whole Blood 224 mg/dL (75-99)
--- NOTE | 2018-05-25 17:42 | P.PN ---
Subjective Progress Note Date: 05/25/18 This is a 68-year-old male one of my patient wih known history of chronic hypercapnic and hypoxemic respiratory failure, advanced COPD with moderate pulmonary hypertension, known paroxysmal atrial fibrillation/ Flutter on long-term anticoagulation, chronic systolic heart heart failure with a recent EF 40% , restless leg, diabetes mellitus type 2, with diabetic polyneuropathy, patient was recently hospitalized at [facility] from till 05/03/2018 after he was admitted for acute hypercapneic and hypoxemic respiratory failure and acute systolic heart failure and he was sent to [facility] for PT and OT , I was following the patient very closely at [facility] and I was seening him twice per week and he was given multiple injectinons of lasix due to sudden ncrease in his weight and he was plced on CPAP most of the time, yeasterday went to [facility] him and he was in respiratory failure with mental status changes, and he was given Lasix 80 mg IM , along with his scheduled dose of Bumex and spironolactone , along with entresto without much help, EMS was called and he was sent to the ER at [facility] were he was found to have Pulmonary edema, he was started on Lasix 40 mg IV Q 8 H along with Entresto and Toprol, spironolactone, and patient was admitted to the hospital, cardiology consultation was obtained as welll as Pulmonary consult. Patient was seen by earlier in April and had a DCG and he was supposed to have a follow up with him regarding the treatment of A.Flutter but he never connected with him since he ended in the hospital in April 25 . we really need to find what was the result of the Holter that he had and try to intervene in A.Flutter management otherwise he will continue to have recurrent hospital admission due to decompensation of his systolic heart failure. 05/16: Patient states his breathing is a little bit better from yesterday. He continues to have lower extremity edema. He has been seen by cardiology and IV Lasix was discontinued, mentalis own was added at 2.5 mg daily and spironolactone was increased to 50 mg twice daily. We will resume patient back on Lasix 80 mg IV twice daily. We will resume IV Lasix at 40 mg. His weight is down 2 kg from admission. Patient's is to bring in CPAP. 05/17: Patient was started on Lasix drip yesterday by cardiology. His weight is down 5 kg since admission. Patient states he is tired and was up urinating every hour and a half during the night. He is noted to have his legs in a dependent position, Oscar wraps in place. Patient has less pedal edema and less edema in his abdomen. Patient did not wear his CPAP last night stating that it was because he was up so frequently. His CPAP is at bedside. Noted that CO2 is up to 44. Hemoglobin 10.7, creatinine 1.28. Capillary blood glucose running between 102 and 155. Pulse ox is 97% on 3 L. Patient's been afebrile. 05/20: Yesterday, patient was transitioned off Lasix drip and is on IV Lasix at 80 mg IV every 12 hours but he does not have IV access. Cardiology state they will address. Patient states he has not been urinating much since he's been off the drip. He continues to have lower extremity edema. Anticipate he will be ready for discharge the next 24 hours. 05/21: Last evening, patient became very confused and he was found on the floor by the main door. Patient denied any injury. ABGs were done the pH is 7.38, pCO2 66, PaO2 62, bicarb 39, total CO2 41 O2 saturation 89. Ammonia level is less than 9 and proBNP was 923. His Entresto and Aldactone was held last evening again this morning due to hypotension. He had a chest x-ray that shows heart failure. His weight is up from previous. He is currently on oral Bumex. Patient is diuresing well today. The patient is on CPAP. He apparently was lucid this morning and then around 9:00 had change in mental status with confusion. He is currently on CPAP. Heart rate has been running anywhere from 90-138. 05/22: Pulse ox is 95% on 4 L nasal cannula he was on BiPAP for several hours during the night. This morning sodium 136, chloride 84, CO2 41, BUN 77 creatinine 1.38. Potassium improved to 4.5. Blood sugar running between 119 - 181. Heart rate is running between 94 and 122. Blood pressure remains on the low side. He remains on Lasix 40 mg IV every 8 hours. Entresto and Aldactone were held last night for hypotension. Blood pressure is improved this morning with minimal drainage and patient received all of his medications. Patient has been diuresing well. His weight is down. He has found this morning, sleeping in a chair. He apparently was confused yesterday but improved mentation this morning 05/23: Patient is resting comfortably in a chair. Patient mental has improved. He is arousable and able to answer questions this morning. His pulse ox was 95% on 4 L nasal cannula. He is using a BiPAP during the night. Hemoglobin was 9.6, sodium was 135, chloride 83, CO2 was 48, BUN 77, creatinine 1.55, potassium 4.7. Blood sugars continue to be stable. Blood pressure continues to be on the low side. Patient has been diuresing well. His weight continues to be down. Patient as well as any complaints today. He is anxious to go home. 05/24: Patient apparently did not sleep last night and refused to wear his CPAP. This morning, he is very confused and spilled urinal all over his room. He initially refused his morning medications but is subsequently taken his medications. He has been afebrile, heart rate running in the 70s to low 100s. Blood pressure remains on the low side but improved with minute drain. Pulse ox is 97% on 4 L nasal cannula. Hemoglobin 9.2, CO2 42, BUN 84 and creatinine 1.78. Blood sugars up and running between 153 and 177. His weight is now down a full 10 kg since admission. He is maintained on Lasix 40 mg IV every 8 hours , Zaroxolyn 5 mg daily, Entresto 12/01 a tablet twice daily and Aldactone [address] Olea to discuss yesterday with the patient's that hospice could be an option. At this point, patient is making very little progress. 05/25: Patient is resting comfortably in a chair with his at the bedside. Patient seems to be less confused at this time. Discussed with patient a transition to hospice at this time. Patient and are agreeable to meet with hospice to discuss options and treatment. Patient weight is down a total of 21 KG since admission. At this point, patient is making very little progress. Review Of Systems: Constitutional: No fever, no chills, no night sweats. No weight change. + weakness, +fatigue. +daytime sleepiness. EENT: No headache. No blurred vision or double vision, no loss of vision. No loss of Hearing, no ringing in the ears, no dizziness. No nasal drainage or congestion. No epistaxis. No sore throat. Lungs: +shortness of breath, +cough, no sputum production. No wheezing. Cardiovascular: No chest pain, + lower extremity edema. + palpitations. + paroxysmal nocturnal dyspnea. + orthopnea. No lightheadedness or dizziness. No syncopal episodes. Abdominal: No abdominal pain. + bloating. No nausea, vomiting. No diarrhea. No constipation. No bloody or tarry stools.. No loss of appetite. Genitourinary: No dysuria, increased frequency, urgency. No urinary retention. Musculoskeletal: No myalgias. +muscle weakness, + gait dysfunction, no frequent falls. + back pain. No neck pain. Integumentary: No wounds, no lesions. No rash or pruritus. No unusual bruising. No change in hair or nails. Neurologic: No aphasia. No facial droop. + change in mentation. No head injury. No headache. No paralysis. No paresthesia. Psychiatric: No depression. + anxiety. Endocrine: No abnormal blood sugars. No weight change. No excessive sweating or thirst. Objective - Vital Signs Vital signs: Vital Signs Temp 98.1 F 05/25/18 08:10 Pulse 70 05/25/18 15:08 Resp 18 05/25/18 14:57 BP 88/53 05/25/18 14:57 Pulse Ox 97 05/25/18 14:57 Intake & Output 05/24/18 05/25/18 05/25/18 18:59 06:59 18:59 Intake Total 600 458 240 Output Total 500 800 Balance 100 458 -560 Weight 127.7 kg Intake: Oral 600 458 240 Output: Urine 500 800 Other: Voiding Method Toilet Toilet Diaper Diaper # Voids 1 1 - Constitutional Constitutional Comment(s): Patient is sitting up in a chair General appearance: Present: no acute distress, obese - EENT Eyes: Present: anicteric sclerae, EOMI, PERRLA ENT: Present: hard of hearing, NA/AT, normal oropharynx, thrush - Neck Neck: Present: normal ROM. Absent: lymphadenopathy, rigidity - Respiratory Respiratory: bilateral: diminished, negative: dullness, rales, rhonchi, wheezing - Cardiovascular Rhythm: irregularly irregular Heart sounds: normal: S1, S2 Abnormal Heart Sounds: Present: systolic murmur - Gastrointestinal General gastrointestinal: Present: distended, normal bowel sounds, soft. Absent : tenderness, umbilical hernia - Integumentary Integumentary: Present: decreased turgor - Neurologic Neurologic: Present: CNII-XII intact - Musculoskeletal Musculoskeletal Comment(s): 2+ pedal edema Musculoskeletal: Present: generalized weakness, strength equal bilaterally - Psychiatric Psychiatric: Present: A&O x's 3, appropriate affect, intact judgment & insight - Labs CBC & Chem 7: 05/24/18 05:51 05/24/18 05:51 Labs: Abnormal Lab Results - Last 24 Hours (Table) 05/24/18 05/25/18 05/25/18 Range/Units 21:29 05:50 11:33 POC Glucose (mg/dL) 195 H 133 H 175 H (75-99) mg/dL 05/25/18 Range/Units 16:08 POC Glucose (mg/dL) 224 H (75-99) mg/dL Assessment and Plan Plan: 1. Acute on chronic diastolic heart failure with acute on chronic hypercapnic and hypoxic respiratory failure secondary to pulmonary hypertension and sleep apnea. Continue IV Lasix 40 mg every 8 hours, Zaroxolyn 5 mg daily, Aldactone 50 mg twice daily and change Entresto 0.5 tablets twice a day due to hypotension. Cardiology consult appreciated. Midodrine started to maintain blood pressure for diuresing. Consult hospice for for progression 2. Acute on chronic hypercapneic and hypoxemic respiratory failure. we will continue with CPAP, O2 and duoneb 3m NEB QID along with pulmicort 1 mg NEB bid. Pulmonary consult. Patient is to use CPAP when sleeping during the day and at night. 3. Advanced COPD. we will continue with Neb Rx as above. 4. Paroxysmal atrial fibrillation/Flutter. we will continue with Metoprolol 100 mg orally daily and Xarelto 20 mg orally daily, cardiology evaluation and try to get the result of the DCG that was done as outpatient with . 5. Hypertension and hypertensive cardiovascular disease, with hypotension. we will continue with Metoprolol 100 mg orally daily and Entresto half a tablet twice a day. 6. Diabetes Mellitus type 2 uncontrolled. Continue Levemir to 32 units sc qhs and will continue with Novolog 12-15 units AC meals tid, along with SSI, we will continue with CCA 1800 diet and BGM AC meals and at bedtime. 7. Diabetic polyneuropathy. we will contiue with Lyrica 150 mg orally qhs. 8. Restless leg syndrome. we will continue with Requip 1.5 mg orally at bedtime. 9. Hyperlipidemia. we will continue with Lipitor 20 mg orally daily. 10. Obestiy with PEDRO and OHS. we will continue with CPAP, may need his mask adjusted we will call [facility] to reevaluate. 11. Vitamin D deficiency. we will continue with vit D q week. 12. GERD . will continue with Protonix 40 mg orally daily. 13.BPH. we will continue with Flomax 0.4 mg orally daily. 14. DVT prophylaxis. we will continue with Xarelto 20 mg orally daily. 15. GI prophylaxis. we will continue with PPI. 16. Full code. 17. Metabolic encephalopathy secondary to hypercapnia. Discharge plan: Undetermined possible hospice possible [facility] Impression and plan of care have been directed as dictated by the signing physician. Mackenzie Jay nurse practitioner acting as scribe for signing physician.
[2018-05-25] MEDS: RIVAROXABAN 15 MG TAB PO SCH (17:51)
[2018-05-25 20:51] LABS: Glucose,Whole Blood 144 mg/dL (75-99)
[2018-05-25] MEDS: ATORVASTATIN 20 MG TAB PO SCH (22:13)
[2018-05-25] MEDS: MELATONIN 3 MG TABLET PO SCH (22:13)
[2018-05-25] MEDS: INSULIN DETEMIR 100 UNIT/ML 10 ML VIAL SQ SCH (22:14)
[2018-05-26 05:49] LABS: Glucose,Whole Blood 163 mg/dL (75-99)
[2018-05-26 06:12] LABS: Anisocytosis Slight; HCT 28.4 % (39.0-53.0); HGB 9.1 gm/dL (13.0-17.5); Hypochromasia Slight; MCH 28.8 pg (25.0-35.0); MCHC 32.1 g/dL (31.0-37.0); MCV 89.8 fL (80.0-100.0); Platelet Count 264 k/uL (150-450); Poikilocytosis Slight; RBC 3.16 m/uL (4.30-5.90); RDW 17.3 % (11.5-15.5); WBC 8.5 k/uL (3.8-10.6)
[2018-05-26 06:21] LABS: Calcium 8.9 mg/dL (8.4-10.2)
[2018-05-26] MEDS: PANTOPRAZOLE 40 MG TABLET PO SCH (06:28)
[2018-05-26] MEDS: MIDODRINE 5 MG TAB PO SCH ×3 (06:28→17:45)
[2018-05-26] MEDS: INSULIN ASPART 100 UNIT/ML 1 ML 10 ML VIAL SQ SCH ×7 (06:29→22:37)
[2018-05-26] MEDS: BUDESONIDE 1 MG/2 ML NEBU INHALATION SCH ×2 (07:29→20:12)
[2018-05-26] MEDS: IPRATROPIUM-ALBUTEROL 3 ML NEB INHALATION SCH ×4 (07:30→20:12)
[2018-05-26] MEDS: METOPROLOL SUCCINATE (ER) 50 MG TAB.ER.24H PO SCH (07:55)
[2018-05-26] MEDS: PREGABALIN 75 MG CAP PO SCH (07:56)
[2018-05-26] MEDS: METOLAZONE 5 MG TAB PO SCH (07:56)
[2018-05-26] MEDS: SPIRONOLACTONE 25 MG TAB PO SCH ×2 (07:56→21:51)
[2018-05-26] MEDS: TAMSULOSIN 0.4 MG CAP.ER.24H PO SCH (07:56)
[2018-05-26] MEDS: ASPIRIN 81 MG PO SCH (07:56)
[2018-05-26] MEDS: guaiFENesin 600 MG TABLET.ER PO SCH ×2 (07:57→21:51)
[2018-05-26] MEDS: SACUBITRIL/VALSARTAN 24 MG-26 MG TABLET PO SCH (11:19)
[2018-05-26] MEDS: AMMONIUM LACTATE 12% LOTION 225 GM BTL TOPICAL SCH ×2 (11:20→22:41)
[2018-05-26] MEDS: FUROSEMIDE 10 MG/ML 4 ML VIAL IV SCH ×2 (11:20→15:36)
[2018-05-26 11:39] LABS: Glucose,Whole Blood 151 mg/dL (75-99)
--- NOTE | 2018-05-26 12:46 | P.PN ---
Subjective Progress Note Date: 05/26/18 This is a pleasant 68-year-old gentleman initially presented to the hospital his symptoms of 2-3 day duration of shortness of breath and treated for congestive heart failure. He has a known history of CAD and prior bypass surgery, moderate to severe COPD, persistent atrial flutter, status post ablation. Patient was diuresed with IV Lasix. Yesterday, we were asked to reevaluate the patient due to hypotension. Family did have consultation for hospice care which they are going to discuss further and meet again tomorrow. Patient's blood pressure is better today and he is receiving all of his medications. Objective - Vital Signs Vital signs: Vital Signs Temp 97.6 F 05/26/18 11:08 Pulse 84 05/26/18 11:28 Resp 18 05/26/18 11:08 BP 106/75 05/26/18 11:08 Pulse Ox 98 05/26/18 11:08 Intake & Output 05/25/18 05/26/18 05/26/18 18:59 06:59 18:59 Intake Total 420 240 Output Total 800 Balance -380 240 Weight 135.7 kg Intake: Oral 420 240 Output: Urine 800 Other: Voiding Method Toilet Diaper # Voids 1 2 - Exam HEENT: Head is atraumatic, normocephalic. Pupils equal, round. Sclera anicteric. Conjunctiva are clear. Mucous membranes of the mouth are moist. Neck is supple. There is elevated jugular venous pressure. HEART EXAMINATION: Heart S1, S2 normal. No murmur or gallop heard. CHEST EXAMINATION: Lungs reveal crackles to bilateral lower lobes with scattered wheezing throughout. ABDOMEN: Soft, nontender. Bowel sounds are heard. No organomegaly noted. EXTREMITIES: 2+ peripheral pulses with 2+ evidence of peripheral edema and no calf tenderness noted. - Labs CBC & Chem 7: 05/26/18 05:44 05/26/18 05:44 Labs: Abnormal Lab Results - Last 24 Hours (Table) 05/25/18 05/25/18 05/26/18 Range/Units 16:08 20:49 05:44 RBC 3.16 L (4.30-5.90) m/uL Hgb 9.1 L (13.0-17.5) gm/dL Hct 28.4 L (39.0-53.0) % RDW 17.3 H (11.5-15.5) % Sodium (137-145) mmol/L Chloride (98-107) mmol/L Carbon Dioxide (22-30) mmol/L BUN (9-20) mg/dL Creatinine (0.66-1.25) mg/dL Glucose (74-99) mg/dL POC Glucose (mg/dL) 224 H 144 H (75-99) mg/dL 05/26/18 05/26/18 05/26/18 Range/Units 05:44 05:46 11:26 RBC (4.30-5.90) m/uL Hgb (13.0-17.5) gm/dL Hct (39.0-53.0) % RDW (11.5-15.5) % Sodium 132 L (137-145) mmol/L Chloride 85 L (98-107) mmol/L Carbon Dioxide 38 H (22-30) mmol/L BUN 74 H (9-20) mg/dL Creatinine 1.46 H (0.66-1.25) mg/dL Glucose 142 H (74-99) mg/dL POC Glucose (mg/dL) 163 H 151 H (75-99) mg/dL Assessment and Plan Assessment: 1 acute dyspnea secondary to CHF/diastolic failure with a component of fluid overload and early pulmonary edema. This patient has chronic shortness of breath. There has been acute worsening and decompensation and the vascular status. Chest x-ray is consistent with heart failure, wide mediastinum and interstitial edema consistent with CHF and fluid overload. 2 acute hypoxic respiratory failure on top of chronic hypoxic respiratory failure. 3 CHF with diastolic heart failure and preserved LV function, echocardiogram from 01/17/2018 shows an ejection fraction of 55-60% and concentric left ventricular hypertrophy 4 moderate degree of pulmonary hypertension 5 chronic atrial fibrillation and the patient presented with A. fib/RVR time of admission. Status post prior flutter ablation 6 COPD currently inactive in stable 7 morbid obesity with a BMI of 44.5 8 diabetes mellitus type 2 9 coronary artery disease with previous myocardial infarction and previous carotid bypass surgery 10 peripheral neuropathy 11 carcinoid tumor post small bowel resection, without evidence of any recurrence based on the most recent CAT scan of the abdomen 12 obstructive sleep apnea, nontolerant to CPAP therapy 13 carotid artery disease with less than 25% stenosis at the level of the carotid bifurcation and internal carotid artery and evidence of distal disease bilaterally involving probably more than 50% Plan: From outpatient psychiatrist perspective, medications were reviewed and we will continue the same. We will continue to follow the patient provide further recommendations depending on clinical status. WIRE WALKER note has been reviewed, I agree with a documented findings and plan of care. Patient was seen and examined.
[2018-05-26] MEDS: ACETAMINOPHEN TAB 325 MG TAB PO PRN (13:13)
[2018-05-26 16:29] LABS: Glucose,Whole Blood 128 mg/dL (75-99)
--- NOTE | 2018-05-26 16:43 | P.PN ---
Subjective Progress Note Date: 05/26/18 This is a 68-year-old male one of my patient wih known history of chronic hypercapnic and hypoxemic respiratory failure, advanced COPD with moderate pulmonary hypertension, known paroxysmal atrial fibrillation/ Flutter on long-term anticoagulation, chronic systolic heart heart failure with a recent EF 40% , restless leg, diabetes mellitus type 2, with diabetic polyneuropathy, patient was recently hospitalized at [facility] from till 05/03/2018 after he was admitted for acute hypercapneic and hypoxemic respiratory failure and acute systolic heart failure and he was sent to [facility] for PT and OT , I was following the patient very closely at [facility] and I was seening him twice per week and he was given multiple injectinons of lasix due to sudden ncrease in his weight and he was plced on CPAP most of the time, yeasterday went to [facility] him and he was in respiratory failure with mental status changes, and he was given Lasix 80 mg IM , along with his scheduled dose of Bumex and spironolactone , along with entresto without much help, EMS was called and he was sent to the ER at [facility] were he was found to have Pulmonary edema, he was started on Lasix 40 mg IV Q 8 H along with Entresto and Toprol, spironolactone, and patient was admitted to the hospital, cardiology consultation was obtained as welll as Pulmonary consult. Patient was seen by earlier in April and had a DCG and he was supposed to have a follow up with him regarding the treatment of A.Flutter but he never connected with him since he ended in the hospital in April 25 . we really need to find what was the result of the Holter that he had and try to intervene in A.Flutter management otherwise he will continue to have recurrent hospital admission due to decompensation of his systolic heart failure. 05/16: Patient states his breathing is a little bit better from yesterday. He continues to have lower extremity edema. He has been seen by cardiology and IV Lasix was discontinued, mentalis own was added at 2.5 mg daily and spironolactone was increased to 50 mg twice daily. We will resume patient back on Lasix 80 mg IV twice daily. We will resume IV Lasix at 40 mg. His weight is down 2 kg from admission. Patient's is to bring in CPAP. 05/17: Patient was started on Lasix drip yesterday by cardiology. His weight is down 5 kg since admission. Patient states he is tired and was up urinating every hour and a half during the night. He is noted to have his legs in a dependent position, Oscar wraps in place. Patient has less pedal edema and less edema in his abdomen. Patient did not wear his CPAP last night stating that it was because he was up so frequently. His CPAP is at bedside. Noted that CO2 is up to 44. Hemoglobin 10.7, creatinine 1.28. Capillary blood glucose running between 102 and 155. Pulse ox is 97% on 3 L. Patient's been afebrile. 05/20: Yesterday, patient was transitioned off Lasix drip and is on IV Lasix at 80 mg IV every 12 hours but he does not have IV access. Cardiology state they will address. Patient states he has not been urinating much since he's been off the drip. He continues to have lower extremity edema. Anticipate he will be ready for discharge the next 24 hours. 05/21: Last evening, patient became very confused and he was found on the floor by the main door. Patient denied any injury. ABGs were done the pH is 7.38, pCO2 66, PaO2 62, bicarb 39, total CO2 41 O2 saturation 89. Ammonia level is less than 9 and proBNP was 923. His Entresto and Aldactone was held last evening again this morning due to hypotension. He had a chest x-ray that shows heart failure. His weight is up from previous. He is currently on oral Bumex. Patient is diuresing well today. The patient is on CPAP. He apparently was lucid this morning and then around 9:00 had change in mental status with confusion. He is currently on CPAP. Heart rate has been running anywhere from 90-138. 05/22: Pulse ox is 95% on 4 L nasal cannula he was on BiPAP for several hours during the night. This morning sodium 136, chloride 84, CO2 41, BUN 77 creatinine 1.38. Potassium improved to 4.5. Blood sugar running between 119 - 181. Heart rate is running between 94 and 122. Blood pressure remains on the low side. He remains on Lasix 40 mg IV every 8 hours. Entresto and Aldactone were held last night for hypotension. Blood pressure is improved this morning with minimal drainage and patient received all of his medications. Patient has been diuresing well. His weight is down. He has found this morning, sleeping in a chair. He apparently was confused yesterday but improved mentation this morning 05/23: Patient is resting comfortably in a chair. Patient mental has improved. He is arousable and able to answer questions this morning. His pulse ox was 95% on 4 L nasal cannula. He is using a BiPAP during the night. Hemoglobin was 9.6, sodium was 135, chloride 83, CO2 was 48, BUN 77, creatinine 1.55, potassium 4.7. Blood sugars continue to be stable. Blood pressure continues to be on the low side. Patient has been diuresing well. His weight continues to be down. Patient as well as any complaints today. He is anxious to go home. 05/24: Patient apparently did not sleep last night and refused to wear his CPAP. This morning, he is very confused and spilled urinal all over his room. He initially refused his morning medications but is subsequently taken his medications. He has been afebrile, heart rate running in the 70s to low 100s. Blood pressure remains on the low side but improved with minute drain. Pulse ox is 97% on 4 L nasal cannula. Hemoglobin 9.2, CO2 42, BUN 84 and creatinine 1.78. Blood sugars up and running between 153 and 177. His weight is now down a full 10 kg since admission. He is maintained on Lasix 40 mg IV every 8 hours , Zaroxolyn 5 mg daily, Entresto 12/01 a tablet twice daily and Aldactone [address] Olea to discuss yesterday with the patient's that hospice could be an option. At this point, patient is making very little progress. 05/25: Patient is resting comfortably in a chair with his at the bedside. Patient seems to be less confused at this time. Discussed with patient a transition to hospice at this time. Patient and are agreeable to meet with hospice to discuss options and treatment. Patient weight is down a total of 21 KG since admission. At this point, patient is making very little progress. 05/26: Patient is up in the chair resting comfortably with at the bedside. Patient is able to answer questions appropriately and is not ready to make a decision to change to hospice at this time. Patient would like to take more time to make a decision and was very upset regarding this decision at this time. Hemoglobin 9.1, BUN 74, creatinine 1.46. Review Of Systems: Constitutional: No fever, no chills, no night sweats. No weight change. + weakness, +fatigue. +daytime sleepiness. EENT: No headache. No blurred vision or double vision, no loss of vision. No loss of Hearing, no ringing in the ears, no dizziness. No nasal drainage or congestion. No epistaxis. No sore throat. Lungs: +shortness of breath, +cough, no sputum production. No wheezing. Cardiovascular: No chest pain, + lower extremity edema. + palpitations. + paroxysmal nocturnal dyspnea. + orthopnea. No lightheadedness or dizziness. No syncopal episodes. Abdominal: No abdominal pain. + bloating. No nausea, vomiting. No diarrhea. No constipation. No bloody or tarry stools.. No loss of appetite. Genitourinary: No dysuria, increased frequency, urgency. No urinary retention. Musculoskeletal: No myalgias. +muscle weakness, + gait dysfunction, no frequent falls. + back pain. No neck pain. Integumentary: No wounds, no lesions. No rash or pruritus. No unusual bruising. No change in hair or nails. Neurologic: No aphasia. No facial droop. + change in mentation. No head injury. No headache. No paralysis. No paresthesia. Psychiatric: No depression. + anxiety. Endocrine: No abnormal blood sugars. No weight change. No excessive sweating or thirst. Objective - Vital Signs Vital signs: Vital Signs Temp 98.1 F 05/26/18 15:39 Pulse 90 05/26/18 15:39 Resp 18 05/26/18 15:39 BP 142/113 05/26/18 15:39 Pulse Ox 93 L 05/26/18 15:39 Intake & Output 05/25/18 05/26/18 05/26/18 18:59 06:59 18:59 Intake Total 420 480 Output Total 800 Balance -380 480 Weight 135.7 kg Intake: Oral 420 480 Output: Urine 800 Other: Voiding Method Toilet Diaper # Voids 1 2 - Constitutional General appearance: Present: cooperative, no acute distress, obese - EENT Eyes: Present: anicteric sclerae, EOMI, PERRLA ENT: Present: hearing grossly normal, NA/AT - Neck Neck: Present: normal ROM. Absent: lymphadenopathy - Respiratory Respiratory: bilateral: diminished, negative: dullness, rales, rhonchi, wheezing - Cardiovascular Rhythm: regularly irregular Heart sounds: normal: S1, S2 Abnormal Heart Sounds: Present: systolic murmur - Gastrointestinal General gastrointestinal: Present: distended, normal bowel sounds. Absent: tenderness, umbilical hernia - Integumentary Integumentary: Present: decreased turgor - Neurologic Neurologic: Present: CNII-XII intact - Musculoskeletal Musculoskeletal: Present: generalized weakness, strength equal bilaterally - Psychiatric Psychiatric: Present: A&O x's 3, appropriate affect, intact judgment & insight - Labs CBC & Chem 7: 05/26/18 05:44 05/26/18 05:44 Labs: Abnormal Lab Results - Last 24 Hours (Table) 05/25/18 05/26/18 05/26/18 Range/Units 20:49 05:44 05:44 RBC 3.16 L (4.30-5.90) m/uL Hgb 9.1 L (13.0-17.5) gm/dL Hct 28.4 L (39.0-53.0) % RDW 17.3 H (11.5-15.5) % Sodium 132 L (137-145) mmol/L Chloride 85 L (98-107) mmol/L Carbon Dioxide 38 H (22-30) mmol/L BUN 74 H (9-20) mg/dL Creatinine 1.46 H (0.66-1.25) mg/dL Glucose 142 H (74-99) mg/dL POC Glucose (mg/dL) 144 H (75-99) mg/dL 05/26/18 05/26/18 05/26/18 Range/Units 05:46 11:26 16:15 RBC (4.30-5.90) m/uL Hgb (13.0-17.5) gm/dL Hct (39.0-53.0) % RDW (11.5-15.5) % Sodium (137-145) mmol/L Chloride (98-107) mmol/L Carbon Dioxide (22-30) mmol/L BUN (9-20) mg/dL Creatinine (0.66-1.25) mg/dL Glucose (74-99) mg/dL POC Glucose (mg/dL) 163 H 151 H 128 H (75-99) mg/dL Assessment and Plan Plan: 1. Acute on chronic diastolic heart failure with acute on chronic hypercapnic and hypoxic respiratory failure secondary to pulmonary hypertension and sleep apnea. Continue IV Lasix 40 mg every 8 hours, Zaroxolyn 5 mg daily, Aldactone 50 mg twice daily and change Entresto 0.5 tablets twice a day due to hypotension. Cardiology consult appreciated. Midodrine started to maintain blood pressure for diuresing. Consult hospice in progression 2. Acute on chronic hypercapneic and hypoxemic respiratory failure. we will continue with CPAP, O2 and duoneb 3m NEB QID along with pulmicort 1 mg NEB bid. Pulmonary consult. Patient is to use CPAP when sleeping during the day and at night. 3. Advanced COPD. we will continue with Neb Rx as above. 4. Paroxysmal atrial fibrillation/Flutter. we will continue with Metoprolol 100 mg orally daily and Xarelto 20 mg orally daily, cardiology evaluation and try to get the result of the DCG that was done as outpatient with . 5. Hypertension and hypertensive cardiovascular disease, with hypotension. we will continue with Metoprolol 100 mg orally daily and Entresto half a tablet twice a day. 6. Diabetes Mellitus type 2 uncontrolled. Continue Levemir to 32 units sc qhs and will continue with Novolog 12-15 units AC meals tid, along with SSI, we will continue with CCA 1800 diet and BGM AC meals and at bedtime. 7. Diabetic polyneuropathy. we will contiue with Lyrica 150 mg orally qhs. 8. Restless leg syndrome. we will continue with Requip 1.5 mg orally at bedtime. 9. Hyperlipidemia. we will continue with Lipitor 20 mg orally daily. 10. Obestiy with EPDRO and OHS. we will continue with CPAP, may need his mask adjusted we will call [facility] to reevaluate. 11. Vitamin D deficiency. we will continue with vit D q week. 12. GERD . will continue with Protonix 40 mg orally daily. 13.BPH. we will continue with Flomax 0.4 mg orally daily. 14. DVT prophylaxis. we will continue with Xarelto 20 mg orally daily. 15. GI prophylaxis. we will continue with PPI. 16. Full code. 17. Metabolic encephalopathy secondary to hypercapnia. Discharge plan: Undetermined possible hospice possible [facility] Impression and plan of care have been directed as dictated by the signing physician. Mackenzie Jay nurse practitioner acting as scribe for signing physician.
[2018-05-26] MEDS: RIVAROXABAN 15 MG TAB PO SCH (17:45)
[2018-05-26 21:07] LABS: Glucose,Whole Blood 214 mg/dL (75-99)
[2018-05-26] MEDS: INSULIN DETEMIR 100 UNIT/ML 10 ML VIAL SQ SCH (21:51)
[2018-05-26] MEDS: MELATONIN 3 MG TABLET PO SCH (21:51)
[2018-05-26] MEDS: ATORVASTATIN 20 MG TAB PO SCH (21:51)
[2018-05-27] MEDS: FUROSEMIDE 10 MG/ML 4 ML VIAL IV SCH ×5 (00:25→22:44)
[2018-05-27] MEDS: SACUBITRIL/VALSARTAN 24 MG-26 MG TABLET PO SCH ×3 (06:17→22:17)
[2018-05-27 06:18] LABS: Glucose,Whole Blood 128 mg/dL (75-99)
[2018-05-27] MEDS: INSULIN ASPART 100 UNIT/ML 1 ML 10 ML VIAL SQ SCH ×7 (06:30→21:36)
[2018-05-27] MEDS: PANTOPRAZOLE 40 MG TABLET PO SCH (07:15)
[2018-05-27] MEDS: MIDODRINE 5 MG TAB PO SCH ×3 (07:16→17:41)
[2018-05-27] MEDS: IPRATROPIUM-ALBUTEROL 3 ML NEB INHALATION SCH ×4 (08:43→20:42)
[2018-05-27] MEDS: BUDESONIDE 1 MG/2 ML NEBU INHALATION SCH ×2 (08:43→20:42)
[2018-05-27] MEDS: guaiFENesin 600 MG TABLET.ER PO SCH ×2 (08:55→21:35)
[2018-05-27] MEDS: ASPIRIN 81 MG PO SCH (08:55)
[2018-05-27] MEDS: TAMSULOSIN 0.4 MG CAP.ER.24H PO SCH (08:55)
[2018-05-27] MEDS: AMMONIUM LACTATE 12% LOTION 225 GM BTL TOPICAL SCH ×2 (08:55→21:35)
[2018-05-27] MEDS: METOPROLOL SUCCINATE (ER) 50 MG TAB.ER.24H PO SCH (08:55)
[2018-05-27] MEDS: SPIRONOLACTONE 25 MG TAB PO SCH ×2 (08:55→21:35)
[2018-05-27] MEDS: PREGABALIN 75 MG CAP PO SCH (08:55)
--- NOTE | 2018-05-27 10:36 | P.PN ---
Subjective Progress Note Date: 05/27/18 This is a 68-year-old gentleman seen in consultation yesterday by Dr. VC Hamlin. Presented to the hospital with symptoms of a 2-3 day duration of shortness of breath currently receiving treatment for congestive cardiac failure. Patient has known history of coronary artery disease with prior bypass surgery, moderate to severe COPD, persistent atrial flutter, status post prior ablation. Blood pressure this morning 95/60 with a heart rate in the 90s , 95% on 4 L of oxygen. White blood cell count 9.4, hemoglobin 9.9, platelet count 198. We will discontinue the IV Lasix today and start the patient on a Lasix drip. 05/22/2018 Patient seen and examined today, sitter is at bedside, still confused today. Sodium 136, potassium 4.5, chloride 84, CO2 41, BUN 77, creatinine 1.3 today. This point time patient remains a full code. 05/25/2018 Cardiology was asked today to reevaluate the patient because of hypotension. Apparently the decision has been made by the patient and the family at this point in time to be hospice care. Os recent blood pressure 88/50 with a heart rate in the 90s, 96% on 4 L. Patient denies any dizziness or lightheadedness. His breathing is overall stable. He continues to be on IV Lasix at this time. We will decrease his dose of Aldactone, continue the rest of his medications as he is asymptomatic his hypotension. Continue to follow. 05/27/2018 Patient was seen and examined this morning, blood pressure 128/58, heart rate in the low 100s, 92% on 4 L of oxygen. Continues to be on IV Lasix. Discussions are being made regarding possible hospice. We will follow this patient along with you now on an as-needed basis only, please don't hesitate to call with any questions. Objective - Vital Signs Vital signs: Vital Signs Temp 97.2 F L 05/27/18 08:11 Pulse 106 H 05/27/18 09:10 Resp 22 05/27/18 08:11 BP 94/70 05/27/18 08:11 Pulse Ox 95 05/27/18 08:11 Intake & Output 05/26/18 05/27/18 05/27/18 18:59 06:59 18:59 Intake Total 702 350 Output Total 1 400 Balance 702 -1 -50 Intake: Oral 702 350 Output: Urine 400 Stool 1 Other: Voiding Method Toilet Toilet Urinal Urinal Diaper Diaper # Voids 2 8 - Exam PHYSICAL EXAMINATION: GENERAL: 68-year-old gentleman in no acute distress at the time of my examination HEENT: Head is atraumatic, normocephalic. Pupils equal, round. Sclera anicteric. Conjunctiva are clear. Mucous membranes of the mouth are moist. Neck is supple. There is elevated jugular venous pressure. No carotid bruit is heard. HEART EXAMINATION: Heart S1, S2 normal. No murmur or gallop heard. CHEST EXAMINATION: Lungs reveal bibasilar rales with scattered wheezing throughout. ABDOMEN: Soft, nontender. Bowel sounds are heard. No organomegaly noted. EXTREMITIES: 2+ peripheral pulses with 2+ evidence of peripheral edema and no calf tenderness noted. NEUROLOGIC patient is awake, confused. - Labs CBC & Chem 7: 05/26/18 05:44 05/26/18 05:44 Labs: Abnormal Lab Results - Last 24 Hours (Table) 05/26/18 05/26/18 05/26/18 Range/Units 11:26 16:15 21:05 POC Glucose (mg/dL) 151 H 128 H 214 H (75-99) mg/dL 05/27/18 Range/Units 06:15 POC Glucose (mg/dL) 128 H (75-99) mg/dL Assessment and Plan Plan: Assessment 1 acute dyspnea secondary to CHF/diastolic failure with a component of fluid overload and early pulmonary edema. This patient has chronic shortness of breath. There has been acute worsening and decompensation and the vascular status. Chest x-ray is consistent with heart failure, wide mediastinum and interstitial edema consistent with CHF and fluid overload. 2 acute hypoxic respiratory failure on top of chronic hypoxic respiratory failure. 3 CHF with diastolic heart failure and preserved LV function, echocardiogram from 01/17/2018 shows an ejection fraction of 55-60% and concentric left ventricular hypertrophy 4 moderate degree of pulmonary hypertension 5 chronic atrial fibrillation and the patient presented with A. fib/RVR time of admission. Status post prior flutter ablation 6 COPD currently inactive in stable 7 morbid obesity with a BMI of 44.5 8 diabetes mellitus type 2 9 coronary artery disease with previous myocardial infarction and previous carotid bypass surgery 10 peripheral neuropathy 11 carcinoid tumor post small bowel resection, without evidence of any recurrence based on the most recent CAT scan of the abdomen 12 obstructive sleep apnea, nontolerant to CPAP therapy 13 carotid artery disease with less than 25% stenosis at the level of the carotid bifurcation and internal carotid artery and evidence of distal disease bilaterally involving probably more than 50% Plan From cardiology's perspective, we will continue the current medications. We will follow this patient along with you now on an as-needed basis only, please don't hesitate to call with any questions. DNP note has been reviewed, I agree with a documented findings and plan of care. Patient was seen and examined.
[2018-05-27 11:45] LABS: Glucose,Whole Blood 121 mg/dL (75-99)
[2018-05-27] MEDS: METOLAZONE 5 MG TAB PO SCH (12:28)
[2018-05-27 17:14] LABS: Glucose,Whole Blood 260 mg/dL (75-99)
[2018-05-27] MEDS: RIVAROXABAN 15 MG TAB PO SCH (17:41)
[2018-05-27 21:14] LABS: Glucose,Whole Blood 194 mg/dL (75-99)
[2018-05-27] MEDS: ATORVASTATIN 20 MG TAB PO SCH (21:35)
[2018-05-27] MEDS: MELATONIN 3 MG TABLET PO SCH (21:35)
[2018-05-27] MEDS: INSULIN DETEMIR 100 UNIT/ML 10 ML VIAL SQ SCH (21:36)
[2018-05-28 06:27] LABS: Glucose,Whole Blood 145 mg/dL (75-99)
[2018-05-28] MEDS: INSULIN ASPART 100 UNIT/ML 1 ML 10 ML VIAL SQ SCH ×7 (06:44→20:56)
[2018-05-28] MEDS: PANTOPRAZOLE 40 MG TABLET PO SCH (06:44)
[2018-05-28] MEDS: MIDODRINE 5 MG TAB PO SCH ×3 (06:54→17:47)
[2018-05-28] MEDS: IPRATROPIUM-ALBUTEROL 3 ML NEB INHALATION SCH ×4 (07:50→20:19)
[2018-05-28] MEDS: BUDESONIDE 1 MG/2 ML NEBU INHALATION SCH ×2 (07:50→20:19)
--- NOTE | 2018-05-28 08:33 | P.PN ---
Subjective Progress Note Date: 05/27/18 This is a 68-year-old male one of my patient wih known history of chronic hypercapnic and hypoxemic respiratory failure, advanced COPD with moderate pulmonary hypertension, known paroxysmal atrial fibrillation/ Flutter on long-term anticoagulation, chronic systolic heart heart failure with a recent EF 40% , restless leg, diabetes mellitus type 2, with diabetic polyneuropathy, patient was recently hospitalized at [facility] from till 05/03/2018 after he was admitted for acute hypercapneic and hypoxemic respiratory failure and acute systolic heart failure and he was sent to [facility] for PT and OT , I was following the patient very closely at [facility] and I was seening him twice per week and he was given multiple injectinons of lasix due to sudden ncrease in his weight and he was plced on CPAP most of the time, yeasterday went to [facility] and he was in respiratory failure with mental status changes, and he was given Lasix 80 mg IM , along with his scheduled dose of Bumex and spironolactone , along with entresto without much help, EMS was called and he was sent to the ER at [facility] were he was found to have Pulmonary edema, he was started on Lasix 40 mg IV Q 8 H along with Entresto and Toprol, spironolactone, and patient was admitted to the hospital, cardiology consultation was obtained as welll as Pulmonary consult. Patient was seen by earlier in April and had a DCG and he was supposed to have a follow up with him regarding the treatment of A.Flutter but he never connected with him since he ended in the hospital in April 25 . we really need to find what was the result of the Holter that he had and try to intervene in A.Flutter management otherwise he will continue to have recurrent hospital admission due to decompensation of his systolic heart failure. 05/16: Patient states his breathing is a little bit better from yesterday. He continues to have lower extremity edema. He has been seen by cardiology and IV Lasix was discontinued, mentalis own was added at 2.5 mg daily and spironolactone was increased to 50 mg twice daily. We will resume patient back on Lasix 80 mg IV twice daily. We will resume IV Lasix at 40 mg. His weight is down 2 kg from admission. Patient's is to bring in CPAP. 05/17: Patient was started on Lasix drip yesterday by cardiology. His weight is down 5 kg since admission. Patient states he is tired and was up urinating every hour and a half during the night. He is noted to have his legs in a dependent position, Oscar wraps in place. Patient has less pedal edema and less edema in his abdomen. Patient did not wear his CPAP last night stating that it was because he was up so frequently. His CPAP is at bedside. Noted that CO2 is up to 44. Hemoglobin 10.7, creatinine 1.28. Capillary blood glucose running between 102 and 155. Pulse ox is 97% on 3 L. Patient's been afebrile. 05/20: Yesterday, patient was transitioned off Lasix drip and is on IV Lasix at 80 mg IV every 12 hours but he does not have IV access. Cardiology state they will address. Patient states he has not been urinating much since he's been off the drip. He continues to have lower extremity edema. Anticipate he will be ready for discharge the next 24 hours. 05/21: Last evening, patient became very confused and he was found on the floor by the main door. Patient denied any injury. ABGs were done the pH is 7.38, pCO2 66, PaO2 62, bicarb 39, total CO2 41 O2 saturation 89. Ammonia level is less than 9 and proBNP was 923. His Entresto and Aldactone was held last evening again this morning due to hypotension. He had a chest x-ray that shows heart failure. His weight is up from previous. He is currently on oral Bumex. Patient is diuresing well today. The patient is on CPAP. He apparently was lucid this morning and then around 9:00 had change in mental status with confusion. He is currently on CPAP. Heart rate has been running anywhere from 90-138. 05/22: Pulse ox is 95% on 4 L nasal cannula he was on BiPAP for several hours during the night. This morning sodium 136, chloride 84, CO2 41, BUN 77 creatinine 1.38. Potassium improved to 4.5. Blood sugar running between 119 - 181. Heart rate is running between 94 and 122. Blood pressure remains on the low side. He remains on Lasix 40 mg IV every 8 hours. Entresto and Aldactone were held last night for hypotension. Blood pressure is improved this morning with minimal drainage and patient received all of his medications. Patient has been diuresing well. His weight is down. He has found this morning, sleeping in a chair. He apparently was confused yesterday but improved mentation this morning 05/23: Patient is resting comfortably in a chair. Patient mental has improved. He is arousable and able to answer questions this morning. His pulse ox was 95% on 4 L nasal cannula. He is using a BiPAP during the night. Hemoglobin was 9.6, sodium was 135, chloride 83, CO2 was 48, BUN 77, creatinine 1.55, potassium 4.7. Blood sugars continue to be stable. Blood pressure continues to be on the low side. Patient has been diuresing well. His weight continues to be down. Patient as well as any complaints today. He is anxious to go home. 05/24: Patient apparently did not sleep last night and refused to wear his CPAP. This morning, he is very confused and spilled urinal all over his room. He initially refused his morning medications but is subsequently taken his medications. He has been afebrile, heart rate running in the 70s to low 100s. Blood pressure remains on the low side but improved with minute drain. Pulse ox is 97% on 4 L nasal cannula. Hemoglobin 9.2, CO2 42, BUN 84 and creatinine 1.78. Blood sugars up and running between 153 and 177. His weight is now down a full 10 kg since admission. He is maintained on Lasix 40 mg IV every 8 hours , Zaroxolyn 5 mg daily, Entresto 12/01 a tablet twice daily and Aldactone [address] Olea to discuss yesterday with the patient's that hospice could be an option. At this point, patient is making very little progress. 05/25: Patient is resting comfortably in a chair with his at the bedside. Patient seems to be less confused at this time. Discussed with patient a transition to hospice at this time. Patient and are agreeable to meet with hospice to discuss options and treatment. Patient weight is down a total of 21 KG since admission. At this point, patient is making very little progress. 05/26: Patient is up in the chair resting comfortably with at the bedside. Patient is able to answer questions appropriately and is not ready to make a decision to change to hospice at this time. Patient would like to take more time to make a decision and was very upset regarding this decision at this time. Hemoglobin 9.1, BUN 74, creatinine 1.46. 05/27: Patient had significant confusion during the night as well as this morning with some mild improvement. His is to have CPAP machine repaired as there is a crack in the tubing. Discussed in detail with the patient and his about hospice care. Patient does verbalize that he is in agreement. They would like to go to the [facility] home. Referral will be made and patient is at this time clear for discharge. We are planning to make him comfort care. Patient can be transferred to [facility] without telemetry. Review Of Systems: Constitutional: No fever, no chills, no night sweats. No weight change. + weakness, +fatigue. +daytime sleepiness. EENT: No headache. No blurred vision or double vision, no loss of vision. No loss of Hearing, no ringing in the ears, no dizziness. No nasal drainage or congestion. No epistaxis. No sore throat. Lungs: +shortness of breath, +cough, no sputum production. No wheezing. Cardiovascular: No chest pain, + lower extremity edema. + palpitations. + paroxysmal nocturnal dyspnea. + orthopnea. No lightheadedness or dizziness. No syncopal episodes. Abdominal: No abdominal pain. + bloating. No nausea, vomiting. No diarrhea. No constipation. No bloody or tarry stools.. No loss of appetite. Genitourinary: No dysuria, increased frequency, urgency. No urinary retention. Musculoskeletal: No myalgias. +muscle weakness, + gait dysfunction, no frequent falls. + back pain. No neck pain. Integumentary: No wounds, no lesions. No rash or pruritus. No unusual bruising. No change in hair or nails. Neurologic: No aphasia. No facial droop. + change in mentation. No head injury. No headache. No paralysis. No paresthesia. Psychiatric: No depression. + anxiety. Endocrine: No abnormal blood sugars. No weight change. No excessive sweating or thirst. Objective - Vital Signs Vital signs: Vital Signs Temp 97.2 F L 05/27/18 08:11 Pulse 106 H 05/27/18 09:10 Resp 22 05/27/18 08:11 BP 94/70 05/27/18 08:11 Pulse Ox 95 05/27/18 08:11 Intake & Output 05/26/18 05/27/18 05/27/18 18:59 06:59 18:59 Intake Total 702 350 Output Total 1 400 Balance 702 -1 -50 Weight 137.2 kg Intake: Oral 702 350 Output: Urine 400 Stool 1 Other: Voiding Method Toilet Toilet Urinal Urinal Diaper Diaper # Voids 2 8 - Exam General appearance: no distress, obese, patient is sitting in recliner - EENT Eyes: anicteric sclerae, EOMI, PERRLA, no ptosis, no scleral icterus, normal appearance ENT: hard of hearing, NA/AT, normal oropharynx, no thrush Ears: bilateral: normal - Neck Neck: no lymphadenopathy, normal ROM, no rigidity, no stridor, no thyromegaly Carotids: bilateral: upstroke normal Thyroid: bilateral: normal size - Respiratory Respiratory: bilateral: diminished, negative: dullness, rales, rhonchi, wheezing , prolonged expiration, patient on BiPAP - Cardiovascular Rhythm: irregularly irregular Heart sounds: normal: S1, S2 Abnormal Heart Sounds: systolic murmur - Gastrointestinal General gastrointestinal: distended, hyperactive bowel sounds, soft, no tenderness, no umbilical hernia, no ventral hernia - Integumentary Integumentary: normal, normal turgor - Neurologic Neurologic: CNII-XII intact - Musculoskeletal Musculoskeletal: generalized weakness, strength equal bilaterally, 2+ pedal edema - Psychiatric Psychiatric: A&O x's 0, no appropriate affect, no intact judgment & insight - Labs CBC & Chem 7: 05/26/18 05:44 05/26/18 05:44 Labs: Abnormal Lab Results - Last 24 Hours (Table) 05/26/18 05/26/18 05/26/18 Range/Units 11: 16:15 21:05 POC Glucose (mg/dL) 151 H 128 H 214 H (75-99) mg/dL 05/27/18 Range/Units 06:15 POC Glucose (mg/dL) 128 H (75-99) mg/dL Assessment and Plan Plan: 1. Acute on chronic diastolic heart failure with acute on chronic hypercapnic and hypoxic respiratory failure secondary to CO2 retention and sleep apnea. Continue IV Lasix 40 mg every 8 hours, Zaroxolyn 5 mg daily, Aldactone 50 mg twice daily and Entresto 25/26 half tablet twice daily. Cardiology consult appreciated. Midodrine started to maintain blood pressure for diuresing. 2. Acute on chronic hypercapneic and hypoxemic respiratory failure. we will continue with CPAP, O2 and duoneb 3m NEB QID along with pulmicort 1 mg NEB bid. Pulmonary consult. Patient is to use CPAP when sleeping during the day and at night. 3. Advanced COPD. we will continue with Neb Rx as above. 4. Paroxysmal atrial fibrillation/Flutter. we will continue with Metoprolol 100 mg orally daily and Xarelto 20 mg orally daily, cardiology evaluation and try to get the result of the DCG that was done as outpatient with . 5. Hypertension and hypertensive cardiovascular disease, with hypotension. we will continue with Metoprolol 100 mg orally daily and Entresto 24/26 mg half tablet orally daily. 6. Diabetes Mellitus type 2 uncontrolled. Continue Levemir to 32 units sc qhs and will continue with Novolog 12-15 units AC meals tid, along with SSI, we will continue with CCA 1800 diet and BGM AC meals and at bedtime. 7. Diabetic polyneuropathy. we will contiue with Lyrica 150 mg orally qhs. 8. Restless leg syndrome. we will continue with Requip 1.5 mg orally at bedtime. 9. Hyperlipidemia. we will continue with Lipitor 20 mg orally daily. 10. Obestiy with PEDRO and OHS. we will continue with CPAP, may need his mask adjusted we will call [facility] to reevaluate. 11. Vitamin D deficiency. we will continue with vit D q week. 12. GERD . will continue with Protonix 40 mg orally daily. 13.BPH. we will continue with Flomax 0.4 mg orally daily. 14. DVT prophylaxis. we will continue with Xarelto 20 mg orally daily. 15. GI prophylaxis. we will continue with PPI. 16. Full code. 17. Metabolic encephalopathy secondary to hypercapnia. Discharge plan: [facility] home Impression and plan of care have been directed as dictated by the signing physician. Larissa Convery nurse practitioner acting as scribe for signing physician.
--- NOTE | 2018-05-28 08:41 | P.DS ---
Providers Date of admission: 05/14/18 21:10 Expected date of discharge: 05/29/18 Attending physician: Paulette Dsouza Consults: 05/14/18 21:10 Consult Physician Routine Consulting Provider: Mtiul Velazquez Consult Reason/Comments: COPD Do you want consulting provider notified?: Yes Consult Physician Routine Consulting Provider: [facility] Consult Reason/Comments: Pulmonary edema Do you want consulting provider notified?: Yes 05/25/18 10:36 Consult Physician Routine Consulting Provider: Gale Harrison Consult Reason/Comments: hypotension Do you want consulting provider notified?: Yes, Notify in am Primary care physician: [facility] Course: This is a 68-year-old male one of my patient wih known history of chronic hypercapnic and hypoxemic respiratory failure, advanced COPD with moderate pulmonary hypertension, known paroxysmal atrial fibrillation/ Flutter on long-term anticoagulation, chronic systolic heart heart failure with a recent EF 40% , restless leg, diabetes mellitus type 2, with diabetic polyneuropathy, patient was recently hospitalized at [facility] from till 05/03/2018 after he was admitted for acute hypercapneic and hypoxemic respiratory failure and acute systolic heart failure and he was sent to [facility] for PT and OT , I was following the patient very closely at [facility] and I was seening him twice per week and he was given multiple injectinons of lasix due to sudden ncrease in his weight and he was plced on CPAP most of the time, yeasterday went to [facility] and he was in respiratory failure with mental status changes, and he was given Lasix 80 mg IM , along with his scheduled dose of Bumex and spironolactone , along with entresto without much help, EMS was called and he was sent to the ER at [facility] were he was found to have Pulmonary edema, he was started on Lasix 40 mg IV Q 8 H along with Entresto and Toprol, spironolactone, and patient was admitted to the hospital, cardiology consultation was obtained as welll as Pulmonary consult. Patient was seen by earlier in April and had a DCG and he was supposed to have a follow up with him regarding the treatment of A.Flutter but he never connected with him since he ended in the hospital in April 25 . we really need to find what was the result of the Holter that he had and try to intervene in A.Flutter management otherwise he will continue to have recurrent hospital admission due to decompensation of his systolic heart failure. 05/16: Patient states his breathing is a little bit better from yesterday. He continues to have lower extremity edema. He has been seen by cardiology and IV Lasix was discontinued, mentalis own was added at 2.5 mg daily and spironolactone was increased to 50 mg twice daily. We will resume patient back on Lasix 80 mg IV twice daily. We will resume IV Lasix at 40 mg. His weight is down 2 kg from admission. Patient's is to bring in CPAP. 05/17: Patient was started on Lasix drip yesterday by cardiology. His weight is down 5 kg since admission. Patient states he is tired and was up urinating every hour and a half during the night. He is noted to have his legs in a dependent position, Oscar wraps in place. Patient has less pedal edema and less edema in his abdomen. Patient did not wear his CPAP last night stating that it was because he was up so frequently. His CPAP is at bedside. Noted that CO2 is up to 44. Hemoglobin 10.7, creatinine 1.28. Capillary blood glucose running between 102 and 155. Pulse ox is 97% on 3 L. Patient's been afebrile. 05/20: Yesterday, patient was transitioned off Lasix drip and is on IV Lasix at 80 mg IV every 12 hours but he does not have IV access. Cardiology state they will address. Patient states he has not been urinating much since he's been off the drip. He continues to have lower extremity edema. Anticipate he will be ready for discharge the next 24 hours. 05/21: Last evening, patient became very confused and he was found on the floor by the main door. Patient denied any injury. ABGs were done the pH is 7.38, pCO2 66, PaO2 62, bicarb 39, total CO2 41 O2 saturation 89. Ammonia level is less than 9 and proBNP was 923. His Entresto and Aldactone was held last evening again this morning due to hypotension. He had a chest x-ray that shows heart failure. His weight is up from previous. He is currently on oral Bumex. Patient is diuresing well today. The patient is on CPAP. He apparently was lucid this morning and then around 9:00 had change in mental status with confusion. He is currently on CPAP. Heart rate has been running anywhere from 90-138. 05/22: Pulse ox is 95% on 4 L nasal cannula he was on BiPAP for several hours during the night. This morning sodium 136, chloride 84, CO2 41, BUN 77 creatinine 1.38. Potassium improved to 4.5. Blood sugar running between 119 - 181. Heart rate is running between 94 and 122. Blood pressure remains on the low side. He remains on Lasix 40 mg IV every 8 hours. Entresto and Aldactone were held last night for hypotension. Blood pressure is improved this morning with minimal drainage and patient received all of his medications. Patient has been diuresing well. His weight is down. He has found this morning, sleeping in a chair. He apparently was confused yesterday but improved mentation this morning 05/23: Patient is resting comfortably in a chair. Patient mental has improved. He is arousable and able to answer questions this morning. His pulse ox was 95% on 4 L nasal cannula. He is using a BiPAP during the night. Hemoglobin was 9.6, sodium was 135, chloride 83, CO2 was 48, BUN 77, creatinine 1.55, potassium 4.7. Blood sugars continue to be stable. Blood pressure continues to be on the low side. Patient has been diuresing well. His weight continues to be down. Patient as well as any complaints today. He is anxious to go home. 05/24: Patient apparently did not sleep last night and refused to wear his CPAP. This morning, he is very confused and spilled urinal all over his room. He initially refused his morning medications but is subsequently taken his medications. He has been afebrile, heart rate running in the 70s to low 100s. Blood pressure remains on the low side but improved with minute drain. Pulse ox is 97% on 4 L nasal cannula. Hemoglobin 9.2, CO2 42, BUN 84 and creatinine 1.78. Blood sugars up and running between 153 and 177. His weight is now down a full 10 kg since admission. He is maintained on Lasix 40 mg IV every 8 hours , Zaroxolyn 5 mg daily, Entresto 6/2 a tablet twice daily and Aldactone [address] Olea to discuss yesterday with the patient's that hospice could be an option. At this point, patient is making very little progress. 05/25: Patient is resting comfortably in a chair with his at the bedside. Patient seems to be less confused at this time. Discussed with patient a transition to hospice at this time. Patient and are agreeable to meet with hospice to discuss options and treatment. Patient weight is down a total of 21 KG since admission. At this point, patient is making very little progress. 05/26: Patient is up in the chair resting comfortably with at the bedside. Patient is able to answer questions appropriately and is not ready to make a decision to change to hospice at this time. Patient would like to take more time to make a decision and was very upset regarding this decision at this time. Hemoglobin 9.1, BUN 74, creatinine 1.46. 05/27: Patient had significant confusion during the night as well as this morning with some mild improvement. His is to have CPAP machine repaired as there is a crack in the tubing. Discussed in detail with the patient and his about hospice care. Patient does verbalize that he is in agreement. They would like to go to the [facility]. Referral will be made and patient is at this time clear for discharge. We are planning to make him comfort care. Patient can be [facility] without telemetry. 05/28: Patient is sitting in a chair and eating his lunch today and appears to be in no acute distress. Blood pressure remains on the low side for which he was started on minute drain. Lasix will be switched to oral as we anticipate he will be ready for discharge under hospice care within 24 hours. Patient's is meeting with [facility] regarding financing. Patient denies any new complaints. Mentation seems to be close to baseline today. 05/29: Patient is found sleeping in a chair but awakens easily. He has not had IV access and everything was changed to oral medications yesterday. Patient states he is feeling well today. Family have chosen to sign on with [facility] and going home today. All patient medications will be provided and prescription form as he has been in the care home the last couple discharges. Patient will be discharged home today in stable condition. Home O2 will be arranged by hospice. Discharge diagnoses: 1. Acute on chronic diastolic heart failure with acute on chronic hypercapnic and hypoxic respiratory failure secondary to CO2 retention and sleep apnea. 2. Acute on chronic hypercapneic and hypoxemic respiratory failure. 3. Advanced COPD. 4. Paroxysmal atrial fibrillation/Flutter. 5. Hypertension and hypertensive cardiovascular disease, with hypotension. 6. Diabetes Mellitus type 2 uncontrolled with hyperglycemia. 7. Diabetic polyneuropathy. 8. Restless leg syndrome. 9. Hyperlipidemia. 10. Obestiy with PEDRO and OHS. 11. Vitamin D deficiency. 12. GERD. 13. BPH. 14. Metabolic encephalopathy secondary to hypercapnia (POA). Discharge plan: [facility] at home Impression and plan of care have been directed as dictated by the signing physician. Larissa Warner nurse practitioner acting as scribe for signing physician. Patient Condition at Discharge: Stable Plan - Discharge Summary Discharge Rx Participant: No New Discharge Prescriptions: New Atropine Ophth Soln 1% 5Ml [Isopto Atropine 1% 5Ml] 2 drops PO Q4HR PRN #1 bottle PRN Reason: Secretions LORazepam ORAL CONC [Ativan Intensol] 2 mg PO Q4HR PRN #30 ml PRN Reason: Anxiety MORPHINE ORAL LISY CONC 20mg/mL [Roxanol Oral Soln Conc 20MG/ML] 5 mg PO Q4H PRN #30 ml PRN Reason: Pain Ammonium Lactate Lotion [Lac-Hydrin 12% Lotion] 1 applic TOPICAL BID applic Aspirin 81 mg PO DAILY chew Furosemide [Lasix] 40 mg PO TID #90 tab guaiFENesin [Mucinex] 1,200 mg PO Q12HR tablet.er Insulin Detemir [Levemir] 28 unit SQ HS #5 syr Ipratropium-Albuterol Nebulize [Duoneb 0.5 mg-3 mg/3 ml Soln] 3 ml INHALATION RT-QID PRN #120 ampul.neb PRN Reason: Shortness Of Breath Or Wheezing Melatonin 6 mg PO HS tablet Metolazone [Zaroxolyn] 5 mg PO DAILY #30 tab Metoprolol Succinate (ER) [Toprol XL] 100 mg PO DAILY #60 tab.er.24h Midodrine [ProAmatine] 10 mg PO AC-TID #90 tab Pregabalin [Lyrica] 150 mg PO DAILY #30 cap Sacubitril/Valsartan [Entresto 24 mg-26 mg Tablet] 0.5 each PO BID #60 tablet Continue Rivaroxaban [Xarelto] 20 mg PO HS@1700 Albuterol Inhaler [Ventolin Hfa Inhaler] 2 puff INHALATION RT-Q4H #1 inhaler Budesonide [Pulmicort] 1 mg INHALATION RT-BID #60 nebu Pantoprazole [Protonix] 40 mg PO DAILY@0600 #30 tablet. rOPINIRole HCL [Requip] 1.5 mg PO HS #30 tab Spironolactone [Aldactone] 25 mg PO BID #60 tab Tamsulosin [Flomax] 0.4 mg PO PC-BRKFST #30 cap.er.24h Changed Insulin Aspart [NovoLOG] 8 units SQ AC-TID #5 syr Discontinued Ergocalciferol (Vitamin D2) [Vitamin D2] 50,000 unit PO SA oxyCODONE HCL [Roxicodone] 15 mg PO AC-LUNCH Pregabalin [Lyrica] 300 mg PO DAILY oxyCODONE HCL [Roxicodone] 20 mg PO BID Naproxen Sodium [Aleve] 220 mg PO DAILY Naloxone HCl [Narcan] 4 mg EA NOSTRIL DIRECTED Lidocaine [Lidoderm 5% Patch] 1 patch TOPICAL Q12HR Dofetilide [Tikosyn] 500 mg PO BID Insulin Detemir [Levemir] 10 unit SQ HS guaiFENesin 400 mg PO TID Apixaban [Eliquis] 5 mg PO BID Albuterol Nebulized [Ventolin Nebulized] 2.5 mg INHALATION RT-Q4H Metolazone [Zaroxolyn] 2.5 mg PO MOWEFR Metoprolol Succinate [Toprol Xl] 50 mg PO DAILY Bumetanide [BUMEX] 1 mg PO BID Sacubitril/Valsartan [Entresto 49 mg-51 mg Tablet] 1 tab PO BID Pregabalin [Lyrica] 150 mg PO PC-SUPPER Discharge Medication List Rivaroxaban [Xarelto] 20 mg PO HS@1700 02/28/18 [History] Atropine Ophth Soln 1% 5Ml [Isopto Atropine 1% 5Ml] 2 drops PO Q4HR PRN #1 bottle 05/28/18 [Rx] LORazepam ORAL CONC [Ativan Intensol] 2 mg PO Q4HR PRN #30 ml 05/28/18 [Rx] MORPHINE ORAL LISY CONC 20mg/mL [Roxanol Oral Soln Conc 20MG/ML] 5 mg PO Q4H PRN #30 ml 05/28/18 [Rx] Albuterol Inhaler [Ventolin Hfa Inhaler] 2 puff INHALATION RT-Q4H #1 inhaler [Rx] Ammonium Lactate Lotion [Lac-Hydrin 12% Lotion] 1 applic TOPICAL BID applic [Rx] Aspirin 81 mg PO DAILY chew 05/29/18 [Rx] Budesonide [Pulmicort] 1 mg INHALATION RT-BID #60 nebu 05/29/18 [Rx] Furosemide [Lasix] 40 mg PO TID #90 tab 05/29/18 [Rx] Insulin Aspart [NovoLOG] 8 units SQ AC-TID #5 syr 05/29/18 [Rx] Insulin Detemir [Levemir] 28 unit SQ HS #5 syr 05/29/18 [Rx] Ipratropium-Albuterol Nebulize [Duoneb 0.5 mg-3 mg/3 ml Soln] 3 ml INHALATION RT -QID PRN #120 ampul.neb 05/29/18 [Rx] Melatonin 6 mg PO HS tablet 05/29/18 [Rx] Metolazone [Zaroxolyn] 5 mg PO DAILY #30 tab 05/29/18 [Rx] Metoprolol Succinate (ER) [Toprol XL] 100 mg PO DAILY #60 tab.er.24h 05/29/18 [ Rx] Midodrine [ProAmatine] 10 mg PO AC-TID #90 tab 05/29/18 [Rx] Pantoprazole [Protonix] 40 mg PO DAILY@0600 #30 tablet.dr 05/29/18 [Rx] Pregabalin [Lyrica] 150 mg PO DAILY #30 cap 05/29/18 [Rx] Sacubitril/Valsartan [Entresto 24 mg-26 mg Tablet] 0.5 each PO BID #60 tablet [Rx] Spironolactone [Aldactone] 25 mg PO BID #60 tab 05/29/18 [Rx] Tamsulosin [Flomax] 0.4 mg PO PC-BRKFST #30 cap.er.24h 05/29/18 [Rx] guaiFENesin [Mucinex] 1,200 mg PO Q12HR tablet.er 05/29/18 [Rx] rOPINIRole HCL [Requip] 1.5 mg PO HS #30 tab 05/29/18 [Rx] Follow up Appointment(s)/Referral(s): Pradeep Boss MD [STAFF PHYSICIAN] - 1 Week Mitul Velazquez MD [STAFF PHYSICIAN] - 1 Week Paulette Dsouza MD [Primary Care Provider] - As Needed Patient Instructions/Handouts: Pulmonary Edema (DC), Heart Healthy Diet (DC) Activity/Diet/Wound Care/Special Instructions: [facility] [phone] Discharge Disposition: HOME WITH HOSPICE
[2018-05-28] MEDS: METOPROLOL SUCCINATE (ER) 50 MG TAB.ER.24H PO SCH (09:02)
[2018-05-28] MEDS: ASPIRIN 81 MG PO SCH (09:02)
[2018-05-28] MEDS: guaiFENesin 600 MG TABLET.ER PO SCH ×2 (09:02→20:48)
[2018-05-28] MEDS: PREGABALIN 75 MG CAP PO SCH (09:02)
[2018-05-28] MEDS: TAMSULOSIN 0.4 MG CAP.ER.24H PO SCH (09:02)
[2018-05-28] MEDS: ACETAMINOPHEN TAB 325 MG TAB PO PRN (09:03)
[2018-05-28] MEDS: SPIRONOLACTONE 25 MG TAB PO SCH ×2 (09:04→20:48)
[2018-05-28] MEDS: FUROSEMIDE 10 MG/ML 4 ML VIAL IV SCH (09:11)
[2018-05-28] MEDS: FUROSEMIDE 40 MG TAB PO SCH ×3 (09:16→20:48)
[2018-05-28] MEDS: AMMONIUM LACTATE 12% LOTION 225 GM BTL TOPICAL SCH ×2 (09:16→20:45)
[2018-05-28] MEDS: METOLAZONE 5 MG TAB PO SCH (09:16)
[2018-05-28] MEDS: SACUBITRIL/VALSARTAN 24 MG-26 MG TABLET PO SCH ×2 (09:17→20:53)
[2018-05-28 11:18] LABS: Glucose,Whole Blood 108 mg/dL (75-99)
[2018-05-28 14:25] LABS: ABG HCO3 41 mmol/L (21-25)
--- NOTE | 2018-05-28 15:49 | P.PN ---
Subjective Progress Note Date: 05/28/18 This is a 68-year-old male one of my patient wih known history of chronic hypercapnic and hypoxemic respiratory failure, advanced COPD with moderate pulmonary hypertension, known paroxysmal atrial fibrillation/ Flutter on long-term anticoagulation, chronic systolic heart heart failure with a recent EF 40% , restless leg, diabetes mellitus type 2, with diabetic polyneuropathy, patient was recently hospitalized at [facility] from till 05/03/2018 after he was admitted for acute hypercapneic and hypoxemic respiratory failure and acute systolic heart failure and he was sent to [facility] for PT and OT , I was following the patient very closely at [facility] and I was seening him twice per week and he was given multiple injectinons of lasix due to sudden ncrease in his weight and he was plced on CPAP most of the time, yeasterday went to [facility] and he was in respiratory failure with mental status changes, and he was given Lasix 80 mg IM , along with his scheduled dose of Bumex and spironolactone , along with entresto without much help, EMS was called and he was sent to the ER at [facility] were he was found to have Pulmonary edema, he was started on Lasix 40 mg IV Q 8 H along with Entresto and Toprol, spironolactone, and patient was admitted to the hospital, cardiology consultation was obtained as welll as Pulmonary consult. Patient was seen by earlier in April and had a DCG and he was supposed to have a follow up with him regarding the treatment of A.Flutter but he never connected with him since he ended in the hospital in April 25 . we really need to find what was the result of the Holter that he had and try to intervene in A.Flutter management otherwise he will continue to have recurrent hospital admission due to decompensation of his systolic heart failure. 05/16: Patient states his breathing is a little bit better from yesterday. He continues to have lower extremity edema. He has been seen by cardiology and IV Lasix was discontinued, mentalis own was added at 2.5 mg daily and spironolactone was increased to 50 mg twice daily. We will resume patient back on Lasix 80 mg IV twice daily. We will resume IV Lasix at 40 mg. His weight is down 2 kg from admission. Patient's is to bring in CPAP. 05/17: Patient was started on Lasix drip yesterday by cardiology. His weight is down 5 kg since admission. Patient states he is tired and was up urinating every hour and a half during the night. He is noted to have his legs in a dependent position, Oscar wraps in place. Patient has less pedal edema and less edema in his abdomen. Patient did not wear his CPAP last night stating that it was because he was up so frequently. His CPAP is at bedside. Noted that CO2 is up to 44. Hemoglobin 10.7, creatinine 1.28. Capillary blood glucose running between 102 and 155. Pulse ox is 97% on 3 L. Patient's been afebrile. 05/20: Yesterday, patient was transitioned off Lasix drip and is on IV Lasix at 80 mg IV every 12 hours but he does not have IV access. Cardiology state they will address. Patient states he has not been urinating much since he's been off the drip. He continues to have lower extremity edema. Anticipate he will be ready for discharge the next 24 hours. 05/21: Last evening, patient became very confused and he was found on the floor by the main door. Patient denied any injury. ABGs were done the pH is 7.38, pCO2 66, PaO2 62, bicarb 39, total CO2 41 O2 saturation 89. Ammonia level is less than 9 and proBNP was 923. His Entresto and Aldactone was held last evening again this morning due to hypotension. He had a chest x-ray that shows heart failure. His weight is up from previous. He is currently on oral Bumex. Patient is diuresing well today. The patient is on CPAP. He apparently was lucid this morning and then around 9:00 had change in mental status with confusion. He is currently on CPAP. Heart rate has been running anywhere from 90-138. 05/22: Pulse ox is 95% on 4 L nasal cannula he was on BiPAP for several hours during the night. This morning sodium 136, chloride 84, CO2 41, BUN 77 creatinine 1.38. Potassium improved to 4.5. Blood sugar running between 119 - 181. Heart rate is running between 94 and 122. Blood pressure remains on the low side. He remains on Lasix 40 mg IV every 8 hours. Entresto and Aldactone were held last night for hypotension. Blood pressure is improved this morning with minimal drainage and patient received all of his medications. Patient has been diuresing well. His weight is down. He has found this morning, sleeping in a chair. He apparently was confused yesterday but improved mentation this morning 05/23: Patient is resting comfortably in a chair. Patient mental has improved. He is arousable and able to answer questions this morning. His pulse ox was 95% on 4 L nasal cannula. He is using a BiPAP during the night. Hemoglobin was 9.6, sodium was 135, chloride 83, CO2 was 48, BUN 77, creatinine 1.55, potassium 4.7. Blood sugars continue to be stable. Blood pressure continues to be on the low side. Patient has been diuresing well. His weight continues to be down. Patient as well as any complaints today. He is anxious to go home. 05/24: Patient apparently did not sleep last night and refused to wear his CPAP. This morning, he is very confused and spilled urinal all over his room. He initially refused his morning medications but is subsequently taken his medications. He has been afebrile, heart rate running in the 70s to low 100s. Blood pressure remains on the low side but improved with minute drain. Pulse ox is 97% on 4 L nasal cannula. Hemoglobin 9.2, CO2 42, BUN 84 and creatinine 1.78. Blood sugars up and running between 153 and 177. His weight is now down a full 10 kg since admission. He is maintained on Lasix 40 mg IV every 8 hours , Zaroxolyn 5 mg daily, Entresto 12/01 a tablet twice daily and Aldactone [address] Olea to discuss yesterday with the patient's that hospice could be an option. At this point, patient is making very little progress. 05/25: Patient is resting comfortably in a chair with his at the bedside. Patient seems to be less confused at this time. Discussed with patient a transition to hospice at this time. Patient and are agreeable to meet with hospice to discuss options and treatment. Patient weight is down a total of 21 KG since admission. At this point, patient is making very little progress. 05/26: Patient is up in the chair resting comfortably with at the bedside. Patient is able to answer questions appropriately and is not ready to make a decision to change to hospice at this time. Patient would like to take more time to make a decision and was very upset regarding this decision at this time. Hemoglobin 9.1, BUN 74, creatinine 1.46. 05/27: Patient had significant confusion during the night as well as this morning with some mild improvement. His is to have CPAP machine repaired as there is a crack in the tubing. Discussed in detail with the patient and his about hospice care. Patient does verbalize that he is in agreement. They would like to go to the [facility]. Referral will be made and patient is at this time clear for discharge. We are planning to make him comfort care. Patient can be transferred to [facility] without telemetry. 05/28: Patient is sitting in a chair and eating his lunch today and appears to be in no acute distress. Blood pressure remains on the low side for which he was started on minute drain. Lasix will be switched to oral as we anticipate he will be ready for discharge under hospice care within 24 hours. Patient's is meeting with [facility] regarding financing. Patient denies any new complaints. Mentation seems to be close to baseline today. Review Of Systems: Constitutional: No fever, no chills, no night sweats. No weight change. + weakness, +fatigue. +daytime sleepiness. EENT: No headache. No blurred vision or double vision, no loss of vision. No loss of Hearing, no ringing in the ears, no dizziness. No nasal drainage or congestion. No epistaxis. No sore throat. Lungs: +shortness of breath, +cough, no sputum production. No wheezing. Cardiovascular: No chest pain, + lower extremity edema. + palpitations. + paroxysmal nocturnal dyspnea. + orthopnea. No lightheadedness or dizziness. No syncopal episodes. Abdominal: No abdominal pain. + bloating. No nausea, vomiting. No diarrhea. No constipation. No bloody or tarry stools.. No loss of appetite. Genitourinary: No dysuria, increased frequency, urgency. No urinary retention. Musculoskeletal: No myalgias. +muscle weakness, + gait dysfunction, no frequent falls. + back pain. No neck pain. Integumentary: No wounds, no lesions. No rash or pruritus. No unusual bruising. No change in hair or nails. Neurologic: No aphasia. No facial droop. improved change in mentation. No head injury. No headache. No paralysis. No paresthesia. Psychiatric: No depression. + anxiety. Endocrine: No abnormal blood sugars. No weight change. No excessive sweating or thirst. Objective - Vital Signs Vital signs: Vital Signs Temp 98.4 F 05/28/18 08:30 Pulse 100 05/28/18 11:22 Resp 18 05/28/18 08:30 BP 93/51 05/28/18 08:30 Pulse Ox 95 05/28/18 08:30 Intake & Output 05/27/18 05/28/18 05/28/18 18:59 06:59 18:59 Intake Total 1310 720 480 Output Total 400 1 200 Balance 910 719 280 Weight 137.2 kg 137.7 kg Intake: Oral 1310 720 480 Output: Urine 400 200 Stool 1 Other: Voiding Method Toilet Toilet Urinal Urinal Diaper Diaper # Voids 1 7 1 # Bowel Movements 0 - Exam General appearance: no distress, obese, patient is sitting in recliner and eating lunch. No respiratory distress is noted. - EENT Eyes: anicteric sclerae, EOMI, PERRLA, no ptosis, no scleral icterus, normal appearance ENT: hard of hearing, NA/AT, normal oropharynx, no thrush Ears: bilateral: normal - Neck Neck: no lymphadenopathy, normal ROM, no rigidity, no stridor, no thyromegaly Carotids: bilateral: upstroke normal Thyroid: bilateral: normal size - Respiratory Respiratory: bilateral: diminished, negative: dullness, rales, rhonchi, wheezing , prolonged expiration, patient on nasal cannula - Cardiovascular Rhythm: irregularly irregular Heart sounds: normal: S1, S2 Abnormal Heart Sounds: systolic murmur - Gastrointestinal General gastrointestinal: distended, hyperactive bowel sounds, soft, no tenderness, no umbilical hernia, no ventral hernia - Integumentary Integumentary: normal, normal turgor - Neurologic Neurologic: CNII-XII intact - Musculoskeletal Musculoskeletal: generalized weakness, strength equal bilaterally, 2+ pedal edema - Psychiatric Psychiatric: A&O x's 0, no appropriate affect, no intact judgment & insight - Labs CBC & Chem 7: 11/25/18 05:44 05/26/18 05:44 Labs: Abnormal Lab Results - Last 24 Hours (Table) 05/21/18 05/27/18 05/27/18 Range/Units 10:38 17:08 21:12 ABG HCO3 41 H* (21-25) mmol/L POC Glucose (mg/dL) 260 H 194 H (75-99) mg/dL 05/28/18 05/28/18 Range/Units 06:25 11:15 ABG HCO3 (21-25) mmol/L POC Glucose (mg/dL) 145 H 108 H (75-99) mg/dL Assessment and Plan Plan: 1. Acute on chronic diastolic heart failure with acute on chronic hypercapnic and hypoxic respiratory failure secondary to CO2 retention and sleep apnea. Continue IV Lasix 40 mg every 8 hours, Zaroxolyn 5 mg daily, Aldactone 50 mg twice daily and Entresto 25/26 half tablet twice daily. Cardiology consult appreciated. Midodrine started to maintain blood pressure for diuresing. 2. Acute on chronic hypercapneic and hypoxemic respiratory failure. we will continue with CPAP, O2 and duoneb 3m NEB QID along with pulmicort 1 mg NEB bid. Pulmonary consult. Patient is to use CPAP when sleeping during the day and at night. 3. Advanced COPD. we will continue with Neb Rx as above. 4. Paroxysmal atrial fibrillation/Flutter. we will continue with Metoprolol 100 mg orally daily and Xarelto 20 mg orally daily, cardiology evaluation and try to get the result of the DCG that was done as outpatient with . 5. Hypertension and hypertensive cardiovascular disease, with hypotension. we will continue with Metoprolol 100 mg orally daily and Entresto 24/26 mg half tablet orally daily. 6. Diabetes Mellitus type 2 uncontrolled. Continue Levemir to 32 units sc qhs and will continue with Novolog 12-15 units AC meals tid, along with SSI, we will continue with CCA 1800 diet and BGM AC meals and at bedtime. 7. Diabetic polyneuropathy. we will contiue with Lyrica 150 mg orally qhs. 8. Restless leg syndrome. we will continue with Requip 1.5 mg orally at bedtime. 9. Hyperlipidemia. we will continue with Lipitor 20 mg orally daily. 10. Obestiy with PEDRO and OHS. we will continue with CPAP, may need his mask adjusted we will call [facility] to reevaluate. 11. Vitamin D deficiency. we will continue with vit D q week. 12. GERD . will continue with Protonix 40 mg orally daily. 13.BPH. we will continue with Flomax 0.4 mg orally daily. 14. DVT prophylaxis. we will continue with Xarelto 20 mg orally daily. 15. GI prophylaxis. we will continue with PPI. 16. Full code. 17. Metabolic encephalopathy secondary to hypercapnia. Discharge plan: [facility] home in the next 24 hours Impression and plan of care have been directed as dictated by the signing physician. Larissa Warner nurse practitioner acting as scribe for signing physician.
[2018-05-28 16:21] LABS: Glucose,Whole Blood 111 mg/dL (75-99)
[2018-05-28] MEDS: RIVAROXABAN 15 MG TAB PO SCH (17:47)
[2018-05-28] MEDS: MELATONIN 3 MG TABLET PO SCH (20:48)
[2018-05-28] MEDS: ATORVASTATIN 20 MG TAB PO SCH (20:48)
[2018-05-28] MEDS: INSULIN DETEMIR 100 UNIT/ML 10 ML VIAL SQ SCH (20:52)
[2018-05-28 20:54] LABS: Glucose,Whole Blood 164 mg/dL (75-99)
[2018-05-29] MEDS: PANTOPRAZOLE 40 MG TABLET PO SCH (06:55)
[2018-05-29] MEDS: BUDESONIDE 1 MG/2 ML NEBU INHALATION SCH (07:06)
[2018-05-29] MEDS: IPRATROPIUM-ALBUTEROL 3 ML NEB INHALATION SCH ×3 (07:07→15:16)
[2018-05-29 07:08] LABS: Glucose,Whole Blood 126 mg/dL (75-99)
[2018-05-29] MEDS: INSULIN ASPART 100 UNIT/ML 1 ML 10 ML VIAL SQ SCH ×6 (07:14→17:40)
[2018-05-29] MEDS: MIDODRINE 5 MG TAB PO SCH ×3 (08:00→17:12)
[2018-05-29] MEDS: FUROSEMIDE 40 MG TAB PO SCH ×2 (08:00→17:12)
[2018-05-29] MEDS: AMMONIUM LACTATE 12% LOTION 225 GM BTL TOPICAL SCH (08:00)
[2018-05-29] MEDS: TAMSULOSIN 0.4 MG CAP.ER.24H PO SCH (08:00)
[2018-05-29] MEDS: ASPIRIN 81 MG PO SCH (08:00)
[2018-05-29] MEDS: METOPROLOL SUCCINATE (ER) 50 MG TAB.ER.24H PO SCH (08:01)
[2018-05-29] MEDS: METOLAZONE 5 MG TAB PO SCH (08:01)
[2018-05-29] MEDS: guaiFENesin 600 MG TABLET.ER PO SCH (08:01)
[2018-05-29] MEDS: PREGABALIN 75 MG CAP PO SCH (08:01)
[2018-05-29] MEDS: HYDROcodone/APAP 5-325MG 1 EACH TAB PO PRN ×2 (08:02→14:00)
[2018-05-29] MEDS: SACUBITRIL/VALSARTAN 24 MG-26 MG TABLET PO SCH (08:03)
[2018-05-29] MEDS: SPIRONOLACTONE 25 MG TAB PO SCH (08:03)
[2018-05-29 11:47] LABS: Glucose,Whole Blood 215 mg/dL (75-99)
[2018-05-29 15:25] VITALS: PULSE 91; RESP 16; TEMP 97.8
[2018-05-29 15:45] VITALS: BMI 40.9
[2018-05-29] MEDS: RIVAROXABAN 15 MG TAB PO SCH (17:12)
[2018-05-29 17:15] VITALS: BP 75/41
[2018-05-29 17:27] LABS: Glucose,Whole Blood 90 mg/dL (75-99)
== END 2018-05-29 17:42 | disposition hospice, home (50) | DRG 291 ==
LOC: EC 17:27 → 3SCARD 21:10 → 4MS4W 05-28 20:08
PROVIDERS: ADMIT Internal Medicine; ATTEND Internal Medicine
PROC: 05HF33Z Insertion of Infusion Device into Left Cephalic Vein, Percutaneous Approach (ICD-10-PCS; principal; 2018-05-21 14:30)
PROC: B54NZZA Ultrasonography of Left Upper Extremity Veins, Guidance (ICD-10-PCS; principal; 2018-05-21 14:30)
DX: I11.0 Hypertensive heart disease with heart failure (principal); G93.41 Metabolic encephalopathy; J96.21 Acute and chronic respiratory failure with hypoxia; J96.22 Acute and chronic respiratory failure with hypercapnia; E66.2 Morbid (severe) obesity with alveolar hypoventilation; E87.2 Acidosis; I48.92 Unspecified atrial flutter; Z68.41 Body mass index [BMI] 40.0-44.9, adult; Z51.5 Encounter for palliative care; I95.9 Hypotension, unspecified; E11.42 Type 2 diabetes mellitus with diabetic polyneuropathy; E11.51 Type 2 diabetes mellitus with diabetic peripheral angiopathy without gangrene; I27.20 Pulmonary hypertension, unspecified; E11.65 Type 2 diabetes mellitus with hyperglycemia; I48.2 Chronic atrial fibrillation; J44.9 Chronic obstructive pulmonary disease, unspecified; E55.9 Vitamin D deficiency, unspecified; E78.5 Hyperlipidemia, unspecified; G25.81 Restless legs syndrome; G89.29 Other chronic pain; H91.90 Unspecified hearing loss, unspecified ear; I25.10 Atherosclerotic heart disease of native coronary artery without angina pectoris; I25.2 Old myocardial infarction; K21.9 Gastro-esophageal reflux disease without esophagitis; K57.90 Diverticulosis of intestine, part unspecified, without perforation or abscess without bleeding; N40.0 Benign prostatic hyperplasia without lower urinary tract symptoms; M54.5 Low back pain; I50.33 Acute on chronic diastolic (congestive) heart failure; G47.00 Insomnia, unspecified; I65.29 Occlusion and stenosis of unspecified carotid artery; Z79.01 Long term (current) use of anticoagulants; Z79.4 Long term (current) use of insulin; Z79.899 Other long term (current) drug therapy; Z79.82 Long term (current) use of aspirin; Z79.52 Long term (current) use of systemic steroids; Z96.652 Presence of left artificial knee joint; Z95.1 Presence of aortocoronary bypass graft; Z87.891 Personal history of nicotine dependence; Z85.068 Personal history of other malignant neoplasm of small intestine; Z99.81 Dependence on supplemental oxygen; Z89.422 Acquired absence of other left toe(s); Z95.5 Presence of coronary angioplasty implant and graft; Z90.49 Acquired absence of other specified parts of digestive tract; Z98.1 Arthrodesis status; Z98.42 Cataract extraction status, left eye; Z98.41 Cataract extraction status, right eye; Z96.1 Presence of intraocular lens; Z57.4 Occupational exposure to toxic agents in agriculture; Z82.49 Family history of ischemic heart disease and other diseases of the circulatory system; W19.XXXA Unspecified fall, initial encounter; Y92.232 Corridor of hospital as the place of occurrence of the external cause
CPT/HCPCS: 36415; 36569; 36600; 71045; 71046; 74018; 76937; 80048; 80053; 82140; 82550; 82553; 82805; 83036; 83735; 83880; 84484; 85025; 85027; 85379; 85610; 85730; 87040; 93005; 94640; 94660; 94760; 96374; 99285